=== PATIENT | male | born 1985 | race African-American/Black ===

== ENCOUNTER 2016-08-28 16:42 | Inpatient (IN) | payer MEDICARE, MEDICAID ==
[~2016-08-28] VITALS: Ht 177.8 cm; Wt 61.2 kg
[2016-08-28] MEDS ORDERED: LABETALOL HCL300 MG ORAL ×2 (17:10→20:17)
[2016-08-28] MEDS ORDERED: DILANTIN100 MG ORAL ×2 (17:10→20:30)
[2016-08-28] MEDS ORDERED: CATAPRES0.2 MG ORAL ×2 (17:10→20:18)
[2016-08-28] MEDS ORDERED: KEPPRA1000 MG ORAL (17:10)
[2016-08-28] MEDS ORDERED: DEPAKOTE250 MG PO (17:10)
[2016-08-28 17:30] VITALS: BP 217/114
[2016-08-28 18:21] LABS: MEAN CORPUSCULAR HEMOGLOBIN 32.2 PG (27.0-31.0); MEAN CORPUSCULAR HGB CONC 33.5 G/DL (32.0-36.0); MEAN CORPUSCULAR VOLUME 96 FL (80-99); MEAN PLATELET VOLUME 7.7 FL (6.5-10.1); PLATELET COUNT 71 K/UL (150-450); RED BLOOD COUNT 2.13 M/UL (4.70-6.10); RED CELL DISTRIBUTION WIDTH 16.6 % (11.6-14.8); WHITE BLOOD COUNT 2.9 K/UL (4.8-10.8)
[2016-08-28 18:25] LABS: TROPONIN I < 0.30 ng/mL (<=0.30)
[2016-08-28 18:26] LABS: ALBUMIN/GLOBULIN RATIO 1.1 (1.0-2.7); CALCIUM 8.7 mg/dL (8.6-10.2); CREATININE 4.4 mg/dL (0.7-1.2); GLOMERULAR FILTRATION RATE 19.3 mL/min (>60); TOTAL PROTEIN 5.7 g/dL (6.6-8.7)
--- NOTE | 2016-08-28 19:11 | Emergency Room Report ---
History of Present Illness General Chief Complaint: Chest Pain Source: Patient Present Illness HPI This patient presents from dialysis with chest pain and hypertension. He states he has a history of pericarditis and has a central line in the left chest that he is receiving antibiotics for. He denies recent illness. Denies fever or chills. Denies nausea or vomiting. He has no other complaints. Allergies: Coded Allergies: PHENYTOIN SODIUM (Unverified Allergy, Intermediate, Hives, 12/01/11) PHENYTOIN SODIUM EXTENDED (Unverified Allergy, Intermediate, Hives, ) KETOROLAC (Verified Allergy, Mild, SOB, 06/28/11) METOCLOPRAMIDE (Verified Allergy, Mild, RASH, 06/28/11) MORPHINE (Verified Allergy, Mild, SHOCK, 06/28/11) NITROGLYCERIN (Verified Allergy, Mild, SEIZURES, 06/28/11) PENICILLINS (Verified Allergy, Mild, SOB, 06/28/11) PHENYTOIN (Verified Allergy, Mild, RASH, 06/28/11) HEPARIN (Verified Allergy, Unknown, Shortness of Breath, 08/28/16) HYDRALAZINE (Verified Allergy, Unknown, 08/28/16) IBUPROFEN (Verified Allergy, Unknown, RASH, 06/28/11) IODINE (Verified Allergy, Unknown, SHOCK, 06/28/11) POLYSTYRENE SULFONATE (Verified Allergy, Unknown, RASH, 06/28/11) PROMETHAZINE (Verified Allergy, Unknown, RASH, 06/28/11) Uncoded Allergies: NORCO (Allergy, Severe, Anaphylaxis, 12/01/11) Patient History Past Medical History: see triage record, HTN, CAD, CVA/TIA, seizures, dialysis Past Surgical History: other - Central line Social History: Denies: alcohol use, drug use, smoking Reviewed Nursing Documentation: PMH: Agreed, PSxH: Agreed Nursing Documentation-PMH Hx Cardiac Problems: Yes - SD, pericarditis Hx Hypertension: Yes Hx Dialysis: Yes - M W F Hx Cerebrovascular Accident: Yes Hx Seizures: Yes Review of Systems All Other Systems: negative except mentioned in HPI Physical Exam Vital Signs Date Time Temp Pulse Resp B/P Pulse Ox O2 Delivery O2 Flow Rate FiO2 08/28/16 17:06 98.8 83 20 209/126 100 Room Air Sp02 EP Interpretation: reviewed, normal General Appearance: no apparent distress, alert, GCS 15, non-toxic Head: normocephalic, atraumatic Eyes: bilateral eye PERRL, bilateral eye normal inspection ENT: hearing grossly normal, normal pharynx, no angioedema, normal voice Neck: full range of motion, supple/symm/no masses Respiratory: chest non-tender, lungs clear, normal breath sounds, speaking full sentences Cardiovascular #1: regular rate, rhythm, no edema Gastrointestinal: normal bowel sounds, non tender, soft, non-distended, no guarding, no rebound Rectal: deferred Musculoskeletal: back normal, non-tender, other - At baseline, contractures. Neurologic: alert, oriented x3, responsive, motor strength/tone normal, sensory intact, speech normal Psychiatric: judgement/insight normal, memory normal, mood/affect normal, no suicidal/homicidal ideation Skin: normal color, no rash, warm/dry, well hydrated Medical Decision Making Diagnostic Impression: Primary Impression: Anemia Additional Impressions: Chest pain GI bleed Pancytopenia ER Course This patient has a history of coronary artery disease and pericarditis. He presents with chest pain and hypertension. He came from dialysis. He is also found to be significantly anemic. He did report that at the end of July he had bleeding peptic ulcers. He was seen at [facility] for this. He states that he underwent an EGD and underwent treatment for these. He denies that he has had hematemesis or dark colored stools. He states that when he was having the bleeding last month he was having hematemesis. He will be admitted for further evaluation and treatment. He was also transfused in the emergency department. This patient is critically ill. This patient required complex medical decision- making, aggressive intervention, extensive laboratory workup and monitoring. Critical care time: 40 minutes. Labs Test 08/28/16 18:00 White Blood Count 2.9 K/UL (4.8-10.8) Red Blood Count 2.13 M/UL (4.70-6.10) Hemoglobin 6.9 G/DL (14.2-18.0) Hematocrit 20.5 % (42.0-52.0) Mean Corpuscular Volume 96 FL (80-99) Mean Corpuscular Hemoglobin 32.2 PG (27.0-31.0) Mean Corpuscular Hemoglobin Concent 33.5 G/DL (32.0-36.0) Red Cell Distribution Width 16.6 % (11.6-14.8) Platelet Count 71 K/UL (150-450) Mean Platelet Volume 7.7 FL (6.5-10.1) Neutrophils (%) (Auto) % (45.0-75.0) Lymphocytes (%) (Auto) % (20.0-45.0) Monocytes (%) (Auto) % (1.0-10.0) Eosinophils (%) (Auto) % (0.0-3.0) Basophils (%) (Auto) % (0.0-2.0) Differential Total Cells Counted 100 Neutrophils % (Manual) 77 % (45-75) Lymphocytes % (Manual) 16 % (20-45) Monocytes % (Manual) 4 % (1-10) Eosinophils % (Manual) 2 % (0-3) Basophils % (Manual) 1 % (0-2) Band Neutrophils 0 % (0-8) Platelet Estimate Decreased Platelet Morphology Normal Hypochromasia 2+ Anisocytosis 1+ Microcytosis 1+ Prothrombin Time 10.9 SEC (9.30-11.50) Prothromb Time International Ratio 1.0 (0.9-1.1) Activated Partial Thromboplast Time SEC (23-33) Sodium Level 136 mEQ/L (135-145) Potassium Level 4.0 mEQ/L (3.4-4.9) Chloride Level 99 mEQ/L (98-107) Carbon Dioxide Level 24 mEQ/L (20-30) Anion Gap 13 (5-15) Blood Urea Nitrogen 37 mg/dL (7-23) Creatinine 4.4 mg/dL (0.7-1.2) Estimat Glomerular Filtration Rate 19.3 mL/min (>60) Glucose Level 80 mg/dL (74-106) Calcium Level 8.7 mg/dL (8.6-10.2) Total Bilirubin 0.3 mg/dL (0.0-1.2) Aspartate Amino Transf (AST/SGOT) 13 U/L (5-40) Alanine Aminotransferase (ALT/SGPT) 5 U/L (3-41) Alkaline Phosphatase 3504 U/L (40-129) Total Creatine Kinase 81 U/L (38-174) Creatine Kinase MB 4.0 ng/mL (< 6.7) Creatine Kinase MB Relative Index 4.9 Troponin I < 0.30 ng/mL (<=0.30) Total Protein 5.7 g/dL (6.6-8.7) Albumin 3.1 g/dL (3.5-5.2) Globulin 2.6 g/dL Albumin/Globulin Ratio 1.1 (1.0-2.7) EKG Diagnostic Results Rate: normal Rhythm: NSR ST Segments: no acute changes Other Impression Unusual p wave axis. L. atrial enlargement Rhythm Strip Diag. Results EP Interpretation: yes Rate: 90's Rhythm: NSR, no PVC's, no ectopy Chest X-Ray Diagnostic Results Chest X-Ray Diagnostic Results : Chest X-Ray Ordered: Yes # of Views/Limited/Complete: 1 View Indication: Chest Pain EP Interpretation: Yes Interpretation: no effusion, no pneumothorax, no acute cardiopulmonary disease, other - Lines in place Impression: No acute disease Interpreting ER Provider: Hilary Last Vital Signs Date Time Temp Pulse Resp B/P Pulse Ox O2 Delivery O2 Flow Rate FiO2 08/28/16 17:06 98.8 83 20 209/126 100 Room Air Disposition: ADMITTED INPATIENT Condition: Critical Referrals: UNKNOWN (PCP) BHANU VENTURA D.O. Aug 28, 2016 19:11
[2016-08-28 19:15] LABS: PROTHROMBIN TIME 10.9 SEC (9.30-11.50)
[2016-08-28] MEDS ORDERED: cloNIDine 0.2mg Tab ORAL ONE (19:15)
[2016-08-28 19:30] VITALS: BP 226/117
[2016-08-28 19:30] LABS: ANISOCYTOSIS 1+; BASOPHILS % (MANUAL) 1 % (0-2); EOSINOPHILS % (MANUAL) 2 % (0-3); HYPOCHROMASIA 2+; LYMPHOCYTES % (MANUAL) 16 % (20-45); NEUTROPHILS % (MANUAL) 77 % (45-75); TOTAL CELLS COUNTED 100
[2016-08-28 19:31] LABS: BAND NEUTROPHILS % (MANUAL) 0 % (0-8); MICROCYTES 1+; PLATELET ESTIMATE DECREASED; PLATELET MORPHOLOGY NORMAL
[2016-08-28] MEDS ORDERED: Morphine Sulfate 4mg/ml Inj IVP ONE (19:45)
[2016-08-28] MEDS ORDERED: NEPRO CARB STE237 ML PO (20:20)
[2016-08-28] MEDS ORDERED: LISINOPRIL10 MG ORAL (20:21)
[2016-08-28] MEDS ORDERED: Mylanta II UD 30ml ORAL PRN (20:30)
[2016-08-28] MEDS ORDERED: Miralax 17gm pkt ORAL PRN (20:30)
[2016-08-28] MEDS ORDERED: LORazepam Inj 2mg/ml 1ml IV PRN (20:30)
[2016-08-28] MEDS ORDERED: PROTONIX40 MG ORAL (20:30)
[2016-08-28] MEDS ORDERED: Zolpidem 5mg tab ORAL PRN (20:30)
[2016-08-28 21:08] VITALS: BP 202/128
[2016-08-28] MEDS ORDERED: DiphenhydrAMINE 50mg/ml Inj IVP ONE (21:15)
[2016-08-28 21:54] VITALS: BP 118/113
[2016-08-28 23:20] VITALS: BP 194/132
[2016-08-29] VITALS (10 sets, daily range): BP systolic 176–224; BP diastolic 98–118
[2016-08-29] MEDS ORDERED: Morphine Sulfate 2mg/ml Inj IVP ONE (04:00)
[2016-08-29] MEDS: Morphine Sulfate 4mg/ml Inj IVP PRN ×5 (09:22→21:45)
[2016-08-29] MEDS: cloNIDine 0.2mg Tab ORAL SCH (09:23)
--- NOTE | 2016-08-29 10:13 | Diagnostic Imaging Report ---
Indication: Chest pain Technique: One view of the chest Comparison: 12/01/2011 Findings: Interim placement of a jugular tunneled dialysis catheter. Stents are seen within the innominate veins and or vena cava. Interim placement left chest spinal stimulator powerpack. Bilateral axillary surgical clips are demonstrated. Right upper quadrant surgical clips are demonstrated. The heart is mildly enlarged. Lungs and pleural spaces are clear. Previously demonstrated PICC is no longer evident Impression: Cardiomegaly No definite acute process Postsurgical changes, as described
[2016-08-29 10:14] LABS: MEAN CORPUSCULAR HEMOGLOBIN 29.5 PG (27.0-31.0); MEAN CORPUSCULAR HGB CONC 31.7 G/DL (32.0-36.0); MEAN CORPUSCULAR VOLUME 93 FL (80-99); MEAN PLATELET VOLUME 7.5 FL (6.5-10.1); PLATELET COUNT 95 K/UL (150-450); RED BLOOD COUNT 3.21 M/UL (4.70-6.10); RED CELL DISTRIBUTION WIDTH 16.5 % (11.6-14.8); WHITE BLOOD COUNT 3.7 K/UL (4.8-10.8)
[2016-08-29 10:23] LABS: ALBUMIN/GLOBULIN RATIO 1.5 (1.0-2.7); CALCIUM 8.7 mg/dL (8.6-10.2); CREATININE 5.3 mg/dL (0.7-1.2); GLOMERULAR FILTRATION RATE 15.5 mL/min (>60); TOTAL PROTEIN 5.1 g/dL (6.6-8.7)
--- NOTE | 2016-08-29 10:32 | History and Physical ---
History of Present Illness General Date patient seen: Aug 29, 2016 Reason for Hospitalization: Chest Pain Present Illness HPI 30 year old make with hx of ESRF, on HD, CVA, htn, pericarditis, presented from dialysis with chest pain and hypertension. He states he has a history of pericarditis and has a central line in the left chest that he is receiving antibiotics for. He denies recent illness. Denies fever or chills. Denies nausea or vomiting. He has no other complaints. Pt was found to be anemic and pancytopenic and is admitted to [facility] for further management. Allergies: Coded Allergies: PHENYTOIN SODIUM (Unverified Allergy, Intermediate, Hives, 12/01/11) PHENYTOIN SODIUM EXTENDED (Unverified Allergy, Intermediate, Hives, ) KETOROLAC (Verified Allergy, Mild, SOB, 06/28/11) METOCLOPRAMIDE (Verified Allergy, Mild, RASH, 06/28/11) NITROGLYCERIN (Verified Allergy, Mild, SEIZURES, 06/28/11) PENICILLINS (Verified Allergy, Mild, SOB, 06/28/11) PHENYTOIN (Verified Allergy, Mild, RASH, 06/28/11) HEPARIN (Verified Allergy, Unknown, Shortness of Breath, 08/28/16) HYDRALAZINE (Verified Allergy, Unknown, 08/28/16) IBUPROFEN (Verified Allergy, Unknown, RASH, 06/28/11) IODINE (Verified Allergy, Unknown, SHOCK, 06/28/11) POLYSTYRENE SULFONATE (Verified Allergy, Unknown, RASH, 06/28/11) PROMETHAZINE (Verified Allergy, Unknown, RASH, 06/28/11) Uncoded Allergies: NORCO (Allergy, Severe, Anaphylaxis, 12/01/11) Medication History Scheduled Clonidine Hcl* (Catapres*), 0.2 MG ORAL DAILY, (Reported) Divalproex Sodium* (Depakote*), 250 MG PO Q12HR, (Reported) Labetalol Hcl* (Normodyne*), 300 MG ORAL DAILY, (Reported) Levetiracetam (Keppra), 1,000 MG ORAL BID, (Reported) Lisinopril* (Lisinopril*), 10 MG ORAL DAILY, (Reported) Nut.tx.impaired Renal Fxn,Soy (Nepro Carb Steady), PO QID, (Reported) Phenytoin Sodium Extended* (Dilantin*), 300 MG ORAL DAILY, (Reported) Miscellaneous Medications Pantoprazole* (Protonix*), 40 MG ORAL, (Reported) Patient History Healthcare decision maker Resuscitation status Full Code Advanced Directive on File Past Medical/Surgical History Past Medical/Surgical History: (1) ESRF (end stage renal failure) (2) History of CVA (cerebrovascular accident) (3) Left hemiplegia Review of Systems All Other Systems: negative except mentioned in HPI Physical Exam General Appearance: cachetic Lines, tubes and drains: peripheral HEENT: normocephalic, atraumatic Neck: non-tender, normal alignment Respiratory/Chest: chest wall non-tender, lungs clear Breasts: no masses Cardiovascular/Chest: normal peripheral pulses Abdomen: normal bowel sounds, soft Genitourinary/Rectal: normal genital exam, normal rectal exam Skin Exam: normal pigmentation Neurologic: info analyst II-XII grossly normal, other - left sided arm contracuture Lymphatic: anterior cervical Last 24 Hour Vital Signs Date Time Temp Pulse Resp B/P Pulse Ox O2 Delivery O2 Flow Rate FiO2 08/29/16 09:23 89 178/99 08/29/16 09:23 178/99 08/29/16 08:00 89 08/29/16 05:45 98.8 102 17 188/115 100 Room Air 99 08/29/16 04:00 98.2 96 17 176/103 100 Room Air 96 08/29/16 04:00 100 08/29/16 03:50 180/110 08/29/16 02:30 98.2 99 17 180/110 100 Room Air 99 08/29/16 02:25 98.4 80 16 182/103 99 Room Air 80 08/29/16 02:00 98.9 84 16 196/118 99 Room Air 84 08/29/16 00:00 98.4 82 16 182/108 99 Room Air 82 08/29/16 00:00 90 08/28/16 23:20 98.2 88 16 194/132 99 Room Air 88 08/28/16 22:50 98.9 87 16 08/28/16 22:40 98.7 89 18 08/28/16 22:10 93 18 201/101 100 Room Air 08/28/16 21:54 91 13 118/113 100 Room Air 08/28/16 21:15 202/128 08/28/16 21:08 97.8 85 17 202/128 100 Room Air 08/28/16 19:30 98.2 89 18 226/117 100 Room Air 08/28/16 19:15 227/114 08/28/16 19:15 101 227/114 08/28/16 17:30 98.2 86 18 217/114 100 Room Air 08/28/16 17:30 86 18 Room Air 08/28/16 17:06 98.8 83 20 209/126 100 Room Air Intake and Output 08/28/16 08/29/16 19:00 07:00 Intake Total 0 ml 720 ml Balance 0 ml 720 ml Intake Oral 0 ml 720 ml Laboratory Tests Test 08/28/16 18:00 08/29/16 09:30 White Blood Count 2.9 K/UL (4.8-10.8) L 3.7 K/UL (4.8-10.8) L Red Blood Count 2.13 M/UL (4.70-6.10) L 3.21 M/UL (4.70-6.10) L Hemoglobin 6.9 G/DL (14.2-18.0) *L 9.5 G/DL (14.2-18.0) #L Hematocrit 20.5 % (42.0-52.0) L 29.8 % (42.0-52.0) #L Mean Corpuscular Volume 96 FL (80-99) 93 FL (80-99) Mean Corpuscular Hemoglobin 32.2 PG (27.0-31.0) H 29.5 PG (27.0-31.0) Mean Corpuscular Hemoglobin Concent 33.5 G/DL (32.0-36.0) 31.7 G/DL (32.0-36.0) L Red Cell Distribution Width 16.6 % (11.6-14.8) H 16.5 % (11.6-14.8) H Platelet Count 71 K/UL (150-450) L 95 K/UL (150-450) L Mean Platelet Volume 7.7 FL (6.5-10.1) 7.5 FL (6.5-10.1) Neutrophils (%) (Auto) % (45.0-75.0) % (45.0-75.0) Lymphocytes (%) (Auto) % (20.0-45.0) % (20.0-45.0) Monocytes (%) (Auto) % (1.0-10.0) % (1.0-10.0) Eosinophils (%) (Auto) % (0.0-3.0) % (0.0-3.0) Basophils (%) (Auto) % (0.0-2.0) % (0.0-2.0) Differential Total Cells Counted 100 Neutrophils % (Manual) 77 % (45-75) H Pending Lymphocytes % (Manual) 16 % (20-45) L Pending Monocytes % (Manual) 4 % (1-10) Eosinophils % (Manual) 2 % (0-3) Basophils % (Manual) 1 % (0-2) Band Neutrophils 0 % (0-8) Platelet Estimate Decreased L Pending Platelet Morphology Normal Pending Hypochromasia 2+ Anisocytosis 1+ Microcytosis 1+ Prothrombin Time 10.9 SEC (9.30-11.50) Prothromb Time International Ratio 1.0 (0.9-1.1) Activated Partial Thromboplast Time SEC (23-33) Sodium Level 136 mEQ/L (135-145) Pending Potassium Level 4.0 mEQ/L (3.4-4.9) Pending Chloride Level 99 mEQ/L (98-107) Pending Carbon Dioxide Level 24 mEQ/L (20-30) Pending Anion Gap 13 (5-15) Blood Urea Nitrogen 37 mg/dL (7-23) H Pending Creatinine 4.4 mg/dL (0.7-1.2) H Pending Estimat Glomerular Filtration Rate 19.3 mL/min (>60) Pending Glucose Level 80 mg/dL (74-106) Pending Calcium Level 8.7 mg/dL (8.6-10.2) Pending Total Bilirubin 0.3 mg/dL (0.0-1.2) Pending Aspartate Amino Transf (AST/SGOT) 13 U/L (5-40) Pending Alanine Aminotransferase (ALT/SGPT) 5 U/L (3-41) Pending Alkaline Phosphatase 3504 U/L (40-129) H Pending Total Creatine Kinase 81 U/L (38-174) Creatine Kinase MB 4.0 ng/mL (< 6.7) Creatine Kinase MB Relative Index 4.9 Troponin I < 0.30 ng/mL (<=0.30) Total Protein 5.7 g/dL (6.6-8.7) L Pending Albumin 3.1 g/dL (3.5-5.2) L Pending Globulin 2.6 g/dL Pending Albumin/Globulin Ratio 1.1 (1.0-2.7) Erythrocyte Sedimentation Rate Pending Reticulocyte Count Pending Iron Level Pending Unsaturated Iron Binding Pending Lactate Dehydrogenase Pending Carcinoembryonic Antigen Pending Vitamin B12 Level Pending Folate Pending Thyroid Stimulating Hormone (TSH) Pending Height (Feet): 5 Height (Inches): 10.00 Weight (Pounds): 135 Medications Current Medications Medications (Trade) Dose Ordered Sig/Anant Route PRN Reason Start Time Stop Time Status Last Admin Dose Admin Acetaminophen (Tylenol) 650 mg Q4H PRN ORAL fever 08/28/16 20:30 09/27/16 20:29 Al Hydroxide/Mg Hydroxide (Mylanta II) 30 ml Q6H PRN ORAL dyspepsia 08/28/16 20:30 09/27/16 20:29 Ceftriaxone Sodium/Dextrose (Rocephin/D5W) 55 ml @ 110 mls/hr Q24H IVPB 08/29/16 10:00 09/05/16 09:59 UNV Clonidine HCl (Catapres) 0.1 mg Q4H PRN ORAL For SBP> 170 08/29/16 03:15 09/28/16 03:14 08/29/16 03:50 Clonidine HCl (Catapres) 0.2 mg DAILY ORAL 08/29/16 09:00 09/28/16 08:59 08/29/16 09:23 Dextrose (Dextrose 50%) STAT PRN IV Hypoglycemia 08/28/16 20:30 09/27/16 20:29 Diphenhydramine HCl (Benadryl) 25 mg Q6H PRN IVP Itching 08/29/16 10:00 09/28/16 09:59 UNV Divalproex Sodium (Depakote) 250 mg Q12HR ORAL 08/28/16 21:00 09/27/16 20:59 08/29/16 09:24 Labetalol HCl (Normodyne) 300 mg DAILY ORAL 08/29/16 09:00 09/28/16 08:59 08/29/16 09:23 Levetiracetam (Keppra) 1,000 mg Q12HR ORAL 08/28/16 21:00 09/27/16 20:59 08/29/16 09:23 Lorazepam (Ativan 2mg/ml 1ml) 0.5 mg Q4H PRN IV For Anxiety 08/28/16 20:30 09/04/16 20:29 08/29/16 01:00 Morphine Sulfate (Morphine Sulfate) 4 mg Q3H PRN IVP For Pain 08/29/16 09:00 09/05/16 08:59 08/29/16 09:22 Ondansetron HCl (Zofran) 4 mg Q6H PRN IVP Nausea & Vomiting 08/28/16 20:30 09/27/16 20:29 08/29/16 03:50 Polyethylene Glycol (Miralax) 17 gm HSPRN PRN ORAL Constipation 08/28/16 20:30 09/27/16 20:29 Vancomycin HCl 1 ea 1 ea DAILY PRN MISC Per rx protocol 08/29/16 10:00 09/28/16 09:59 UNV Zolpidem Tartrate (Ambien) 5 mg HSPRN PRN ORAL Insomnia 08/28/16 20:30 09/27/16 20:29 Assessment/Plan Problem List: (1) Pericarditis ICD Codes: I31.9 - Disease of pericardium, unspecified SNOMED: 1561570 (2) Chest pain ICD Codes: R07.9 - Chest pain, unspecified SNOMED: 16833159 (3) Anemia ICD Codes: D64.9 - Anemia, unspecified SNOMED: 100628030 (4) Pancytopenia ICD Codes: D61.818 - Other pancytopenia SNOMED: 914411030 (5) ESRF (end stage renal failure) ICD Codes: N18.6 - End stage renal disease SNOMED: 77077885 (6) Left hemiplegia ICD Codes: G81.94 - Hemiplegia, unspecified affecting left nondominant side SNOMED: 787330118 (7) History of CVA (cerebrovascular accident) ICD Codes: Z86.73 - Personal history of transient ischemic attack (TIA), and cerebral infarction without residual deficits SNOMED: 393817290 Assessment/Plan prbc prn resume abx for pericarditis nephrology for HD pain management dvt prophylaxis rule out GI bleeding stool of OB BETHEL PACK Aug 29, 2016 10:32
[2016-08-29 10:34] LABS: THYROID STIMULATING HORMONE 1.41 uIU/mL (0.300-4.500)
[2016-08-29] MEDS: DiphenhydrAMINE 50mg/ml Inj IVP PRN ×2 (10:59→18:31)
[2016-08-29] MEDS ORDERED: Vancomycin 1250mg/D5W 250ml IVPB ONE (11:30)
[2016-08-29 11:56] LABS: ANISOCYTOSIS 1+; BAND NEUTROPHILS % (MANUAL) 0 % (0-8); BASOPHILS % (MANUAL) 1 % (0-2); EOSINOPHILS % (MANUAL) 0 % (0-3); HYPOCHROMASIA 1+; LYMPHOCYTES % (MANUAL) 22 % (20-45); NEUTROPHILS % (MANUAL) 67 % (45-75); PLATELET ESTIMATE DECREASED; PLATELET MORPHOLOGY NORMAL; TOTAL CELLS COUNTED 100
[2016-08-29] MEDS ORDERED: Heparin Sod 1000 units/ml 10ml IV PRN (12:16)
[2016-08-29] MEDS: cefTRIAXone 1 GM in D5W 55 ML IVPB SCH (12:45)
--- NOTE | 2016-08-29 13:48 | Diagnostic Imaging Report ---
APPROVED REPORT CPT Code: 93082 Present Symptoms Comments: R/O DVT RIGHT LEG: Venous imaging reveals a patent deep venous system. There is no evidence of thrombus within the femoral, popliteal or tibial segments. The greater saphenous vein is also within normal limits. Doppler indicates normal spontaneous flow within these segments. LEFT LEG: Venous imaging reveals recanalized chronic thrombus in the common femoral vein. Imaging also reveals patency of the superficial femoral, popliteal, and calf veins. The greater saphenous vein is also within normal limits. Doppler indicates normal spontaneous flow within these segments. There is no evidence of acute deep vein thrombosis.
--- NOTE | 2016-08-29 14:16 | Consultation ---
DATE OF CONSULTATION: NEPHROLOGY CONSULTATION CONSULTING PHYSICIAN: Nitza Gaines M.D. REASON FOR CONSULTATION: This is one of my dialysis patients. HISTORY OF PRESENT ILLNESS: This is an unfortunate 30-year-old male, who spends most of his time as an inpatient. The patient gets admitted to most of the hospitals in the [facility]. His last admission was to [facility] from where he was discharged about a week ago. Ever since then, the patient has very sketchy dialysis treatment. The patient indicates every dialysis on that he wants to go back to the hospital for different reasons. Yesterday, the patient found his way to this hospital ER. He was admitted under Dr. Hayward, who was kind enough to call me for a Nephrology consultation. PAST MEDICAL HISTORY: 1. End-stage renal failure, on dialysis. 2. Advanced myopathy with skeletal muscular deformities. 3. Severe anemia of chronic kidney disease. 4. Uremia due to noncompliance. 5. Total noncompliance with dialysis treatment, medications and diet. 6. Hypertensive cardiovascular disease. 7. Seizure disorder. 8. Severe secondary hyperparathyroidism. MEDICATIONS: Dilantin, clonidine, Depakote, labetalol, Keppra, lisinopril. Although it is mentioned that the patient is allergic to Dilantin. The patient is not and is on Dilantin treatment Protonix. ALLERGIES: The patient has a long list of allergies, most of those are side effects and no true allergies. Here the following day, list acetaminophen, heparin (the patient is on heparin during dialysis without untoward side effects, so it should be scratched out of the list) hydralazine, hydrocodone. (The patient is getting [place] without any untoward side effects.) ibuprofen, not true allergy. The patient has side effects from ibuprofen, iodine, and ketorolac again this is an nonsteroidal anti-inflammatory agent which the patient is not supposed to get, but is no true allergy to metoclopramide, type 2 blistering, penicillins, Dilantin should be scratched out since the patient is on Dilantin. FAMILY HISTORY: Unremarkable. SOCIAL HISTORY: The patient lives at home with his mother. HABITS: He is nonsmoker and nondrinker. There is no history of illicit drug abuse. REVIEW OF SYSTEMS: HEENT: Hearing. Normal eye sites diminished. The patient has exophthalmos. Endocrine.: Due to noncompliance and uremia. Respiratory: Significant orthopnea and paroxysmal nocturnal dyspnea. Cardiovascular: The patient has occasional chest pain, but has been extensively worked up for ischemic heart disease and has none. Gastrointestinal: The patient has multiple upper and lower endoscopies, the last one of them was done a week ago at [facility] demonstrating gastritis. He has recurrent upper and lower gastrointestinal bleed. Neurological: Significant for advanced muscle atrophy and seizure disorder related to the patient's uremia. ATTENDING PHYSICIAN: GENERAL: This is a young chronically ill-appearing underdeveloped and deformed male, who is in no acute distress. VITAL SIGNS: Blood pressure was 178/99, pulse 89 and regular, respirations 20, and temperature 98.8. HEENT: The head is normocephalic, except muscle wasting and mild to moderate exophthalmos. NECK: Supple. Trachea midline. There is no lymphadenopathy or thyromegaly. LUNGS: Clear to auscultation percussion bilaterally. Heart, regular rate and rhythm. He has a grade 2 systolic ejection murmur. ABDOMEN: Soft and nontender. Bowel sounds are active. EXTREMITIES: Significant for advanced muscle wasting in all extremities. He has contracture of his left hand and he has right upper arm AV fistula. NEUROLOGICAL: He is alert and oriented x4. Cranial nerves II through XII intact. The patient is not able to ambulate easily. He needs assistance. Otherwise, there were no gross focal findings. LABORATORY AND ANCILLARY DATA: His hematocrit is 20.5 and today 29.8. Chemistry, sodium 136, potassium 5, BUN 54, creatinine 5.3, CO2 26, albumin 3.1, and alkaline phosphatase 2907. ASSESSMENT: Severe anemia multifactorial . End-stage renal failure, on dialysis. 2. Advanced myopathy with skeletal muscular deformities. 3. Severe anemia of chronic kidney disease. 4. Uremia due to noncompliance. 5. Total noncompliance with dialysis treatment, medications and diet. 6. Hypertensive cardiovascular disease. 7. Seizure disorder. 8. Severe secondary hyperparathyroidism. PLAN ON DISCHARGE: 1. The patient was transfused. 2. Hemodialysis pending. 3. Discharge planning, the patient lives at home. Nitza Gaines M.D. DR: MELLY JOB#: [id number] CC: LINA
--- NOTE | 2016-08-29 16:44 | GI Initial Consult Note ---
History of Present Illness General Date patient seen: Aug 29, 2016 Time patient seen: 15:00 Reason for Hospitalization: Chest Pain Referring physician: BETHEL PACK Reason for Consultation: ANEMIA Present Illness HPI This patient presents from dialysis with chest pain and hypertension. He states he has a history of pericarditis and has a central line in the left chest that he is receiving antibiotics for. He denies recent illness. Denies fever or chills. Denies nausea or vomiting. He has no other complaints. GI Consult. HPI as noted above. GI consulted for anemia. Pt seen on floor, awake A&Ox4 NAD with no active s/sx of N/V/D. No general GI complaint at this time. States he has a history of bleeding PUD. Last endoscopy was over 2+ years ago, however does not feel like his symptoms are GI related at this time. Presents today with pancytopenia, elevated alkaline phosphatase and hypoalbuminemia. Home Meds Reported Medications Pantoprazole* (PROTONIX*) 40 Mg Tablet.dr, 40 MG ORAL 08/28/16 Phenytoin Sodium Extended* (DILANTIN*) 100 Mg Capsule, 300 MG ORAL DAILY 08/28/16 Lisinopril* (LISINOPRIL*) 10 Mg Tablet, 10 MG ORAL DAILY 08/28/16 Nut.tx.impaired Renal Fxn,Soy (NEPRO CARB STEADY) 237 Ml Liquid, PO QID 08/28/16 Clonidine Hcl* (CATAPRES*) 0.2 Mg Tablet, 0.2 MG ORAL DAILY 08/28/16 Labetalol Hcl* (NORMODYNE*) 300 Mg Tablet, 300 MG ORAL DAILY 08/28/16 Divalproex Sodium* (DEPAKOTE*) 250 Mg Tablet.dr, 250 MG PO Q12HR, TAB 08/28/16 Levetiracetam (KEPPRA) 1,000 Mg Tablet, 1000 MG ORAL BID, #30 TAB 0 Refills 08/28/16 Med list reviewed/reconciled: Yes Allergies: Coded Allergies: PHENYTOIN SODIUM (Unverified Allergy, Intermediate, Hives, 12/01/11) PHENYTOIN SODIUM EXTENDED (Unverified Allergy, Intermediate, Hives, ) KETOROLAC (Verified Allergy, Mild, SOB, 06/28/11) METOCLOPRAMIDE (Verified Allergy, Mild, RASH, 06/28/11) NITROGLYCERIN (Verified Allergy, Mild, SEIZURES, 06/28/11) PENICILLINS (Verified Allergy, Mild, SOB, 06/28/11) PHENYTOIN (Verified Allergy, Mild, RASH, 06/28/11) ACETAMINOPHEN (Verified Allergy, Unknown, Anaphylaxis, 08/29/16) copied from uncoded section HEPARIN (Verified Allergy, Unknown, Shortness of Breath, 08/28/16) HYDRALAZINE (Verified Allergy, Unknown, 08/28/16) HYDROCODONE (Verified Allergy, Unknown, Anaphylaxis, 08/29/16) copied from uncoded section IBUPROFEN (Verified Allergy, Unknown, RASH, 06/28/11) IODINE (Verified Allergy, Unknown, SHOCK, 06/28/11) POLYSTYRENE SULFONATE (Verified Allergy, Unknown, RASH, 06/28/11) PROMETHAZINE (Verified Allergy, Unknown, RASH, 06/28/11) Patient History History Provided By: Patient, Medical Record PMH Narrative Past Medical History: see triage record, HTN, CAD, CVA/TIA, seizures, dialysis Past Surgical History: other - Central line Social History: Denies: alcohol use, drug use, smoking Reviewed Nursing Documentation: PMH: Agreed, PSxH: Agreed Nursing Documentation-PMH Hx Cardiac Problems: Yes - [place], pericarditis Hx Hypertension: Yes Hx Dialysis: Yes - M W F Hx Cerebrovascular Accident: Yes Hx Seizures: Yes Social History: Denies: alcohol use, drug use, other, smoking Review of Systems All Other Systems: negative except mentioned in HPI Physical Exam Vital Signs Date Time Temp Pulse Resp B/P Pulse Ox O2 Delivery O2 Flow Rate FiO2 08/28/16 17:06 98.8 83 20 209/126 100 Room Air Sp02 EP Interpretation: reviewed Labs Laboratory Tests Test 08/28/16 18:00 08/29/16 09:30 White Blood Count 2.9 K/UL (4.8-10.8) L 3.7 K/UL (4.8-10.8) L Red Blood Count 2.13 M/UL (4.70-6.10) L 3.21 M/UL (4.70-6.10) L Hemoglobin 6.9 G/DL (14.2-18.0) *L 9.5 G/DL (14.2-18.0) #L Hematocrit 20.5 % (42.0-52.0) L 29.8 % (42.0-52.0) #L Mean Corpuscular Volume 96 FL (80-99) 93 FL (80-99) Mean Corpuscular Hemoglobin 32.2 PG (27.0-31.0) H 29.5 PG (27.0-31.0) Mean Corpuscular Hemoglobin Concent 33.5 G/DL (32.0-36.0) 31.7 G/DL (32.0-36.0) L Red Cell Distribution Width 16.6 % (11.6-14.8) H 16.5 % (11.6-14.8) H Platelet Count 71 K/UL (150-450) L 95 K/UL (150-450) L Mean Platelet Volume 7.7 FL (6.5-10.1) 7.5 FL (6.5-10.1) Neutrophils (%) (Auto) % (45.0-75.0) % (45.0-75.0) Lymphocytes (%) (Auto) % (20.0-45.0) % (20.0-45.0) Monocytes (%) (Auto) % (1.0-10.0) % (1.0-10.0) Eosinophils (%) (Auto) % (0.0-3.0) % (0.0-3.0) Basophils (%) (Auto) % (0.0-2.0) % (0.0-2.0) Differential Total Cells Counted 100 100 Neutrophils % (Manual) 77 % (45-75) H 67 % (45-75) Lymphocytes % (Manual) 16 % (20-45) L 22 % (20-45) Monocytes % (Manual) 4 % (1-10) 10 % (1-10) Eosinophils % (Manual) 2 % (0-3) 0 % (0-3) Basophils % (Manual) 1 % (0-2) 1 % (0-2) Band Neutrophils 0 % (0-8) 0 % (0-8) Platelet Estimate Decreased L Decreased L Platelet Morphology Normal Normal Hypochromasia 2+ 1+ Anisocytosis 1+ 1+ Microcytosis 1+ Prothrombin Time 10.9 SEC (9.30-11.50) Prothromb Time International Ratio 1.0 (0.9-1.1) Activated Partial Thromboplast Time SEC (23-33) Sodium Level 136 mEQ/L (135-145) 136 mEQ/L (135-145) Potassium Level 4.0 mEQ/L (3.4-4.9) 5.0 mEQ/L (3.4-4.9) H Chloride Level 99 mEQ/L (98-107) 97 mEQ/L (98-107) L Carbon Dioxide Level 24 mEQ/L (20-30) 26 mEQ/L (20-30) Anion Gap 13 (5-15) 13 (5-15) Blood Urea Nitrogen 37 mg/dL (7-23) H 54 mg/dL (7-23) H Creatinine 4.4 mg/dL (0.7-1.2) H 5.3 mg/dL (0.7-1.2) H Estimat Glomerular Filtration Rate 19.3 mL/min (>60) 15.5 mL/min (>60) Glucose Level 80 mg/dL (74-106) 86 mg/dL (74-106) Calcium Level 8.7 mg/dL (8.6-10.2) 8.7 mg/dL (8.6-10.2) Total Bilirubin 0.3 mg/dL (0.0-1.2) 0.4 mg/dL (0.0-1.2) Aspartate Amino Transf (AST/SGOT) 13 U/L (5-40) 13 U/L (5-40) Alanine Aminotransferase (ALT/SGPT) 5 U/L (3-41) 5 U/L (3-41) Alkaline Phosphatase 3504 U/L (40-129) H 2907 U/L (40-129) H Total Creatine Kinase 81 U/L (38-174) Creatine Kinase MB 4.0 ng/mL (< 6.7) Creatine Kinase MB Relative Index 4.9 Troponin I < 0.30 ng/mL (<=0.30) Total Protein 5.7 g/dL (6.6-8.7) L 5.1 g/dL (6.6-8.7) L Albumin 3.1 g/dL (3.5-5.2) L 3.1 g/dL (3.5-5.2) L Globulin 2.6 g/dL 2.0 g/dL Albumin/Globulin Ratio 1.1 (1.0-2.7) 1.5 (1.0-2.7) Erythrocyte Sedimentation Rate 27 MM/HR (0-15) H Reticulocyte Count 2.0 % (0.0-2.0) Iron Level 149 ug/dL (59-158) Total Iron Binding Capacity ug/dL (250-400) Percent Iron Saturation % (15-50) Unsaturated Iron Binding ug/dL (112-346) Lactate Dehydrogenase 217 U/L (135-230) Carcinoembryonic Antigen 8.6 ng/mL H Vitamin B12 Level 505 pg/mL (211-946) Folate Pending Thyroid Stimulating Hormone (TSH) 1.410 uIU/mL (0.300-4.500) General Appearance: well appearing, no apparent distress, alert, thin Head: normocephalic EENT: PERRL/EOMI, normal ENT inspection Neck: normal inspection, full range of motion Respiratory: normal breath sounds, no respiratory distress Cardiovascular: normal rate Gastrointestinal: normal inspection, non tender, soft, normal bowel sounds Rectal: deferred Genitourinary: no CVA tenderness Musculoskeletal: back normal Neurologic: normal inspection, alert, oriented x3, responsive Psychiatric: normal inspection, judgement/insight normal, memory normal Skin: normal inspection, normal color, no rash, warm/dry Lymphatic: normal inspection, no adenopathy Current Medications Current Medications Medications (Trade) Dose Ordered Sig/Anant Route PRN Reason Start Time Stop Time Status Last Admin Dose Admin Acetaminophen (Tylenol) 650 mg Q4H PRN ORAL fever 08/28/16 20:30 09/27/16 20:29 Al Hydroxide/Mg Hydroxide (Mylanta II) 30 ml Q6H PRN ORAL dyspepsia 08/28/16 20:30 09/27/16 20:29 Ceftriaxone Sodium/Dextrose (Rocephin/D5W) 55 ml @ 110 mls/hr Q24H IVPB 08/29/16 13:00 09/05/16 12:59 08/29/16 12:45 Clonidine HCl (Catapres) 0.1 mg Q4H PRN ORAL For SBP> 170 08/29/16 03:15 09/28/16 03:14 08/29/16 03:50 Clonidine HCl (Catapres) 0.2 mg DAILY ORAL 08/29/16 09:00 09/28/16 08:59 08/29/16 09:23 Dextrose (Dextrose 50%) STAT PRN IV Hypoglycemia 08/28/16 20:30 09/27/16 20:29 Diphenhydramine HCl (Benadryl) 25 mg Q6H PRN IVP Itching 08/29/16 10:45 09/28/16 10:44 08/29/16 10:59 Divalproex Sodium (Depakote) 250 mg Q12HR ORAL 08/28/16 21:00 09/27/16 20:59 08/29/16 09:24 Epoetin Rajinder (Procrit (for ESRD on dialysis)) 10,000 units SUN-SUN-SUN SUBQ 08/30/16 21:00 09/29/16 20:59 Heparin Sodium (Porcine) (Heparin Sod 1000 units/ml 10ml) 2,000 unit ONCE PRN IV FOR HD 08/29/16 12:16 08/29/16 23:59 Labetalol HCl 300 mg 300 mg Q12HR ORAL 08/29/16 21:00 09/28/16 20:59 Levetiracetam (Keppra) 1,000 mg Q12HR ORAL 08/28/16 21:00 09/27/16 20:59 08/29/16 09:23 Lorazepam (Ativan 2mg/ml 1ml) 0.5 mg Q4H PRN IV For Anxiety 08/28/16 20:30 09/04/16 20:29 08/29/16 01:00 Morphine Sulfate (Morphine Sulfate) 4 mg Q3H PRN IVP For Pain 08/29/16 09:00 09/05/16 08:59 08/29/16 15:43 Ondansetron HCl (Zofran) 4 mg Q6H PRN IVP Nausea & Vomiting 08/28/16 20:30 09/27/16 20:29 08/29/16 03:50 Polyethylene Glycol (Miralax) 17 gm HSPRN PRN ORAL Constipation 08/28/16 20:30 09/27/16 20:29 Sodium Chloride (Sodium Chloride 1000ml bag) 1,000 ml @ 500 mls/hr Q2H PRN IVLG sbp<90 during hd 08/29/16 12:18 08/29/16 23:59 Vancomycin HCl 1 ea 1 ea DAILY PRN MISC Per rx protocol 08/29/16 10:45 09/28/16 10:44 Zolpidem Tartrate (Ambien) 5 mg HSPRN PRN ORAL Insomnia 08/28/16 20:30 09/27/16 20:29 GI: Plan Problems: (1) Alkaline phosphatase elevation (2) Severe malnutrition (3) Chest pain (4) Pancytopenia (5) GI bleed Plan elevated CEA 8.6 anemia work on patient OB stool r/o GI bleed >> will consider GI procedures prn transfusion ppi f/u abdominal U/S regular diet HIV check fu labs recommend hematology consult Discussed with Dr. Sandoval. Thank you for referring this patient, we will follow. Ashleigh Marie N.P. Aug 29, 2016 16:44
--- NOTE | 2016-08-29 18:15 | Cardiology Report ---
APPROVED REPORT EKG Measurement Heart [id number] Normal sinus rhythm Possible Left atrial enlargement Prolonged QT Abnormal ECG
[2016-08-30] VITALS (9 sets, daily range): BP systolic 147–208; BP diastolic 98–122
[2016-08-30] MEDS: Morphine Sulfate 4mg/ml Inj IVP PRN ×7 (01:07→20:40)
[2016-08-30] MEDS: DiphenhydrAMINE 50mg/ml Inj IVP PRN ×4 (01:07→20:39)
[2016-08-30 05:53] LABS: MEAN CORPUSCULAR HEMOGLOBIN 31.1 PG (27.0-31.0); MEAN CORPUSCULAR VOLUME 94 FL (80-99); MEAN PLATELET VOLUME 7.1 FL (6.5-10.1); PLATELET COUNT 89 K/UL (150-450); RED BLOOD COUNT 2.91 M/UL (4.70-6.10); RED CELL DISTRIBUTION WIDTH 16.5 % (11.6-14.8)
[2016-08-30 05:57] LABS: ALBUMIN/GLOBULIN RATIO 1.1 (1.0-2.7); CALCIUM 8.6 mg/dL (8.6-10.2); CREATININE 4.6 mg/dL (0.7-1.2); GLOMERULAR FILTRATION RATE 18.3 mL/min (>60); POTASSIUM 4.8 mEQ/L (3.4-4.9); TOTAL PROTEIN 5.6 g/dL (6.6-8.7)
--- NOTE | 2016-08-30 08:16 | Consultation ---
DATE OF CONSULTATION: 08/29/2016 NOTE: POOR AUDIO QUALITY HEMATOLOGY/ONCOLOGY CONSULTATION CONSULTING PHYSICIAN: Chavo Alfaro M.D. REQUESTING PHYSICIAN: Kaylah Hayward M.D. REASON FOR CONSULTATION: Evaluation of anemia and leukopenia. IDENTIFICATION DATA: Dear Dr. Kaylah Hayward, Thank you for this consultation. The patient is a pleasant 30-year-old male with past medical history of end-stage renal disease, history of hemodialysis, , hypertension, pericarditis, has been admitted multiple times before 00:55 . Denies any nausea, vomiting, or diarrhea. The patient is found to be anemic and history of pancytopenia in the past, had never had a bone marrow biopsy completed here, 01:46 hematology service consulted. Past Medical History: End-stage renal disease, hemodialysis, advanced myopathy, musculoskeletal deformity, 01:57 dialysis, seizure disorder, secondary hyperparathyroidism. PAST SURGICAL HISTORY: As noted above. MEDICATIONS: Clonidine, Dilantin, albuterol, Keppra, and lisinopril. ALLERGIES: Allergic to Dilantin amongst others, many other allergies. Please refer to Dr. Nitza Gaines's notes. FAMILY HISTORY: Noncontributory. SOCIAL HISTORY: He lives at home with his mother. No alcohol, tobacco, or illicit drug use. REVIEW OF SYSTEMS: Constitutional: No fevers, chills, or night sweats. Skin: No rashes, bumps, or itching. HEENT: No hearing changes. Pulmonary: The patient does have severe shortness of breath and paroxysmal nocturnal dyspnea. Cardiovascular: No chest pain, tightness, or palpitations. Gastrointestinal: No nausea, vomiting, or diarrhea. Genitourinary: No dysuria, frequency, or urgency. Musculoskeletal: No joint swelling, muscle pain, or trauma. PHYSICAL EXAMINATION: GENERAL: The patient is in no distress. Vital Signs: Temperature is 03:15 degrees Fahrenheit, pulse of 85, respiratory rate 12, blood pressure 179/98, and pulse oximetry 97% on room air. PULMONARY: Decreased breath sounds. CARDIOVASCULAR: Regular rate. No S3 or S4. ABDOMEN: Soft, nontender, and nondistended. EXTREMITIES: There is 1+ edema. LABORATORY DATA: WBC , hemoglobin 10.5, hematocrit 30, and platelet count 95,000. Imaging: 03:34 lower extremity is completed. No evidence of DVT and 03:40 thrombosis of the left leg. ASSESSMENT AND PLAN: 1. Pancytopenia especially secondary to underlying inflammatory process. At this time hold off on bone marrow biopsy, 04:11 end-stage renal disease, on hemodialysis 04:25 2. History of CVA. He had been on aspirin before. 3. End-stage renal disease. 4. Hemodialysis 04:34 Nephrology service management. 5. Chest pain, non-specific. 6. History of pericarditis. 7. HIV ordered. 8. Elevated CEA. Tumor marker elevated. 9. The patient is status post endoscopy in the recent past 04:[address]: VERO JOB#: [id number] CC:
[2016-08-30] MEDS: Pantoprazole Inj IVP SCH (08:28)
[2016-08-30] MEDS: cloNIDine 0.2mg Tab ORAL SCH (08:40)
--- NOTE | 2016-08-30 10:23 | Infectious Diseases Prog Note ---
Assessment/Plan Assessment/Plan ID consult note # [id number] Subjective Allergies: Coded Allergies: PHENYTOIN SODIUM (Unverified Allergy, Intermediate, Hives, 12/01/11) PHENYTOIN SODIUM EXTENDED (Unverified Allergy, Intermediate, Hives, ) KETOROLAC (Verified Allergy, Mild, SOB, 06/28/11) METOCLOPRAMIDE (Verified Allergy, Mild, RASH, 06/28/11) NITROGLYCERIN (Verified Allergy, Mild, SEIZURES, 06/28/11) PENICILLINS (Verified Allergy, Mild, SOB, 06/28/11) PHENYTOIN (Verified Allergy, Mild, RASH, 06/28/11) ACETAMINOPHEN (Verified Allergy, Unknown, Anaphylaxis, 08/29/16) copied from uncoded section HEPARIN (Verified Allergy, Unknown, Shortness of Breath, 08/28/16) HYDRALAZINE (Verified Allergy, Unknown, 08/28/16) HYDROCODONE (Verified Allergy, Unknown, Anaphylaxis, 08/29/16) copied from uncoded section IBUPROFEN (Verified Allergy, Unknown, RASH, 06/28/11) IODINE (Verified Allergy, Unknown, SHOCK, 06/28/11) POLYSTYRENE SULFONATE (Verified Allergy, Unknown, RASH, 06/28/11) PROMETHAZINE (Verified Allergy, Unknown, RASH, 06/28/11) Objective Vital Signs Last 24 Hour Vital Signs Date Time Temp Pulse Resp B/P Pulse Ox O2 Delivery O2 Flow Rate FiO2 08/30/16 08:47 200/109 08/30/16 08:40 199/117 08/30/16 08:30 86 199/109 08/30/16 08:00 98.4 88 20 194/122 99 Room Air 88 08/30/16 08:00 87 08/30/16 07:41 194/122 08/30/16 04:38 98.2 08/30/16 04:00 98.2 102 18 208/103 100 Room Air 102 08/30/16 04:00 89 08/30/16 03:39 206/116 08/30/16 01:07 110 206/105 08/30/16 00:00 86 08/30/16 00:00 98.1 108 18 204/112 100 Room Air 97 08/29/16 23:32 205/114 08/29/16 21:40 98 205/114 08/29/16 20:00 86 08/29/16 20:00 98.4 97 20 224/108 100 Room Air 97 08/29/16 16:00 86 08/29/16 16:00 98.1 85 20 179/98 100 Room Air 99 08/29/16 12:00 98.0 90 19 182/99 100 Room Air 99 08/29/16 12:00 78 Height (Feet): 5 Height (Inches): 10.00 Weight (Pounds): 135 Laboratory Tests Test 08/30/16 04:00 White Blood Count 4.0 K/UL (4.8-10.8) L Red Blood Count 2.91 M/UL (4.70-6.10) L Hemoglobin 9.1 G/DL (14.2-18.0) L Hematocrit 27.5 % (42.0-52.0) L Mean Corpuscular Volume 94 FL (80-99) Mean Corpuscular Hemoglobin 31.1 PG (27.0-31.0) H Mean Corpuscular Hemoglobin Concent 33.0 G/DL (32.0-36.0) Red Cell Distribution Width 16.5 % (11.6-14.8) H Platelet Count 89 K/UL (150-450) L Mean Platelet Volume 7.1 FL (6.5-10.1) Neutrophils (%) (Auto) % (45.0-75.0) Lymphocytes (%) (Auto) % (20.0-45.0) Monocytes (%) (Auto) % (1.0-10.0) Eosinophils (%) (Auto) % (0.0-3.0) Basophils (%) (Auto) % (0.0-2.0) Sodium Level 137 mEQ/L (135-145) Potassium Level 4.8 mEQ/L (3.4-4.9) Chloride Level 99 mEQ/L (98-107) Carbon Dioxide Level 24 mEQ/L (20-30) Anion Gap 14 (5-15) Blood Urea Nitrogen 54 mg/dL (7-23) H Creatinine 4.6 mg/dL (0.7-1.2) H Estimat Glomerular Filtration Rate 18.3 mL/min (>60) Glucose Level 87 mg/dL (74-106) Calcium Level 8.6 mg/dL (8.6-10.2) Total Bilirubin 0.3 mg/dL (0.0-1.2) Aspartate Amino Transf (AST/SGOT) 13 U/L (5-40) Alanine Aminotransferase (ALT/SGPT) 5 U/L (3-41) Alkaline Phosphatase 3213 U/L (40-129) H Total Protein 5.6 g/dL (6.6-8.7) L Albumin 3.0 g/dL (3.5-5.2) L Globulin 2.6 g/dL Albumin/Globulin Ratio 1.1 (1.0-2.7) HIV (1&2) Antibody Rapid Negative (NEGATIVE) Current Medications Medications (Trade) Dose Ordered Sig/Anant Route PRN Reason Start Time Stop Time Status Last Admin Dose Admin Acetaminophen (Tylenol) 650 mg Q4H PRN ORAL fever 08/28/16 20:30 09/27/16 20:29 Al Hydroxide/Mg Hydroxide (Mylanta II) 30 ml Q6H PRN ORAL dyspepsia 08/28/16 20:30 09/27/16 20:29 Ceftriaxone Sodium/Dextrose (Rocephin/D5W) 55 ml @ 110 mls/hr Q24H IVPB 08/29/16 13:00 09/05/16 12:59 08/29/16 12:45 Clonidine HCl (Catapres) 0.1 mg Q4H PRN ORAL For SBP> 170 08/29/16 03:15 09/28/16 03:14 08/30/16 07:41 Clonidine HCl (Catapres) 0.2 mg DAILY ORAL 08/29/16 09:00 09/28/16 08:59 08/30/16 08:40 Dextrose (Dextrose 50%) STAT PRN IV Hypoglycemia 08/28/16 20:30 09/27/16 20:29 Diphenhydramine HCl (Benadryl) 25 mg Q6H PRN IVP Itching 08/29/16 10:45 09/28/16 10:44 08/30/16 07:37 Divalproex Sodium (Depakote) 250 mg Q12HR ORAL 08/28/16 21:00 09/27/16 20:59 08/29/16 20:58 Epoetin Rajinder (Procrit (for ESRD on dialysis)) 10,000 units SUN-SUN-SUN SUBQ 08/30/16 21:00 09/29/16 20:59 Labetalol HCl (Normodyne) 300 mg Q12HR ORAL 08/29/16 21:00 09/28/16 20:59 08/30/16 08:30 Levetiracetam (Keppra) 1,000 mg Q12HR ORAL 08/28/16 21:00 09/27/16 20:59 08/29/16 20:58 Lorazepam (Ativan 2mg/ml 1ml) 0.5 mg Q4H PRN IV For Anxiety 08/28/16 20:30 09/04/16 20:29 08/29/16 01:00 Morphine Sulfate (Morphine Sulfate) 4 mg Q3H PRN IVP For Pain 08/29/16 09:00 09/05/16 08:59 08/30/16 07:38 Ondansetron HCl (Zofran) 4 mg Q6H PRN IVP Nausea & Vomiting 08/28/16 20:30 09/27/16 20:29 08/29/16 03:50 Pantoprazole (Protonix) 40 mg DAILY IVP 08/30/16 09:00 09/29/16 08:59 08/30/16 08:28 Polyethylene Glycol (Miralax) 17 gm HSPRN PRN ORAL Constipation 08/28/16 20:30 09/27/16 20:29 Vancomycin HCl 1 ea 1 ea DAILY PRN MISC Per rx protocol 08/29/16 10:45 09/28/16 10:44 Zolpidem Tartrate (Ambien) 5 mg HSPRN PRN ORAL Insomnia 08/28/16 20:30 09/27/16 20:29 MARIMAR TORRES Aug 30, 2016 10:23
[2016-08-30] MEDS ORDERED: Enalaprilat 2.5mg/2ml Inj IV PRN (11:45)
--- NOTE | 2016-08-30 12:22 | GI Progress Note ---
Assessment/Plan Problems: (1) Alkaline phosphatase elevation ICD Codes: R74.8 - Abnormal levels of other serum enzymes SNOMED: 743253269 (2) Severe malnutrition ICD Codes: E43 - Unspecified severe protein-calorie malnutrition SNOMED: 26314615 (3) Pancytopenia ICD Codes: D61.818 - Other pancytopenia SNOMED: 601390257 Status: stable Status Narrative Discussed with Dr. Sandoval. Assessment/Plan elevated CEA 8.6 HIV negative OB stool r/o GI bleed >> will consider GI procedures prn transfusion ppi f/u abdominal U/S renal diet fu labs Subjective Gastrointestinal/Abdominal: Reports: no symptoms Objective Last 24 Hour Vital Signs Date Time Temp Pulse Resp B/P Pulse Ox O2 Delivery O2 Flow Rate FiO2 08/30/16 12:00 98.2 89 16 189/112 99 Room Air 08/30/16 11:15 98.4 08/30/16 08:47 200/109 08/30/16 08:40 199/117 08/30/16 08:30 86 199/109 08/30/16 08:00 98.4 88 20 194/122 99 Room Air 88 08/30/16 08:00 87 08/30/16 07:41 194/122 08/30/16 04:00 98.2 102 18 208/103 100 Room Air 102 08/30/16 04:00 89 08/30/16 03:39 206/116 08/30/16 01:07 110 206/105 08/30/16 00:00 86 08/30/16 00:00 98.1 108 18 204/112 100 Room Air 97 08/29/16 23:32 205/114 08/29/16 21:40 98 205/114 08/29/16 20:00 86 08/29/16 20:00 98.4 97 20 224/108 100 Room Air 97 08/29/16 16:00 86 08/29/16 16:00 98.1 85 20 179/98 100 Room Air 99 Intake and Output 08/29/16 08/30/16 19:00 07:00 Intake Total 240 ml 720 ml Balance 240 ml 720 ml Intake Oral 240 ml 720 ml Laboratory Tests Test 08/30/16 04:00 White Blood Count 4.0 K/UL (4.8-10.8) L Red Blood Count 2.91 M/UL (4.70-6.10) L Hemoglobin 9.1 G/DL (14.2-18.0) L Hematocrit 27.5 % (42.0-52.0) L Mean Corpuscular Volume 94 FL (80-99) Mean Corpuscular Hemoglobin 31.1 PG (27.0-31.0) H Mean Corpuscular Hemoglobin Concent 33.0 G/DL (32.0-36.0) Red Cell Distribution Width 16.5 % (11.6-14.8) H Platelet Count 89 K/UL (150-450) L Mean Platelet Volume 7.1 FL (6.5-10.1) Neutrophils (%) (Auto) % (45.0-75.0) Lymphocytes (%) (Auto) % (20.0-45.0) Monocytes (%) (Auto) % (1.0-10.0) Eosinophils (%) (Auto) % (0.0-3.0) Basophils (%) (Auto) % (0.0-2.0) Sodium Level 137 mEQ/L (135-145) Potassium Level 4.8 mEQ/L (3.4-4.9) Chloride Level 99 mEQ/L (98-107) Carbon Dioxide Level 24 mEQ/L (20-30) Anion Gap 14 (5-15) Blood Urea Nitrogen 54 mg/dL (7-23) H Creatinine 4.6 mg/dL (0.7-1.2) H Estimat Glomerular Filtration Rate 18.3 mL/min (>60) Glucose Level 87 mg/dL (74-106) Calcium Level 8.6 mg/dL (8.6-10.2) Total Bilirubin 0.3 mg/dL (0.0-1.2) Aspartate Amino Transf (AST/SGOT) 13 U/L (5-40) Alanine Aminotransferase (ALT/SGPT) 5 U/L (3-41) Alkaline Phosphatase 3213 U/L (40-129) H Total Protein 5.6 g/dL (6.6-8.7) L Albumin 3.0 g/dL (3.5-5.2) L Globulin 2.6 g/dL Albumin/Globulin Ratio 1.1 (1.0-2.7) HIV (1&2) Antibody Rapid Negative (NEGATIVE) Height (Feet): 5 Height (Inches): 10.00 Weight (Pounds): 135 General Appearance: no apparent distress, alert Cardiovascular: normal rate Respiratory/Chest: normal breath sounds, no respiratory distress Abdominal Exam: normal bowel sounds, non tender, soft Extremities: normal range of motion Ashleigh Marie N.P. Aug 30, 2016 12:22
[2016-08-30] MEDS: cefTRIAXone 1 GM in D5W 55 ML IVPB SCH (12:28)
[2016-08-30] MEDS ORDERED: Doxazosin 4mg tab ORAL SCH (12:30)
--- NOTE | 2016-08-30 12:33 | Pulmonology Progress Note ---
Assessment/Plan Problems: (1) Uncontrolled hypertension (2) Pericarditis (3) Chest pain (4) Anemia (5) Pancytopenia (6) ESRF (end stage renal failure) (7) Left hemiplegia (8) History of CVA (cerebrovascular accident) Assessment/Plan add prazoin po and Vasotec IV to control the BP ENT to see for swollen tonsils continue abx check cultures HD by nephrology Subjective ROS Limited/Unobtainable: No Interval Events: c/o swollen tonills Constitutional: Reports: no symptoms HEENT: Repors: no symptoms Respiratory: Reports: no symptoms Allergies: Coded Allergies: PHENYTOIN SODIUM (Unverified Allergy, Intermediate, Hives, 12/01/11) PHENYTOIN SODIUM EXTENDED (Unverified Allergy, Intermediate, Hives, ) KETOROLAC (Verified Allergy, Mild, SOB, 06/28/11) METOCLOPRAMIDE (Verified Allergy, Mild, RASH, 06/28/11) NITROGLYCERIN (Verified Allergy, Mild, SEIZURES, 06/28/11) PENICILLINS (Verified Allergy, Mild, SOB, 06/28/11) PHENYTOIN (Verified Allergy, Mild, RASH, 06/28/11) ACETAMINOPHEN (Verified Allergy, Unknown, Anaphylaxis, 08/29/16) copied from uncoded section HEPARIN (Verified Allergy, Unknown, Shortness of Breath, 08/28/16) HYDRALAZINE (Verified Allergy, Unknown, 08/28/16) HYDROCODONE (Verified Allergy, Unknown, Anaphylaxis, 08/29/16) copied from uncoded section IBUPROFEN (Verified Allergy, Unknown, RASH, 06/28/11) IODINE (Verified Allergy, Unknown, SHOCK, 06/28/11) POLYSTYRENE SULFONATE (Verified Allergy, Unknown, RASH, 06/28/11) PROMETHAZINE (Verified Allergy, Unknown, RASH, 06/28/11) Objective Last 24 Hour Vital Signs Date Time Temp Pulse Resp B/P Pulse Ox O2 Delivery O2 Flow Rate FiO2 08/30/16 12:00 98.2 89 16 189/112 99 Room Air 08/30/16 11:15 98.4 08/30/16 08:47 200/109 08/30/16 08:40 199/117 08/30/16 08:30 86 199/109 08/30/16 08:00 98.4 88 20 194/122 99 Room Air 88 7/26/17 08:00 87 08/30/16 07:41 194/122 08/30/16 04:00 98.2 102 18 208/103 100 Room Air 102 08/30/16 04:00 89 08/30/16 03:39 206/116 08/30/16 01:07 110 206/105 08/30/16 00:00 86 08/30/16 00:00 98.1 108 18 204/112 100 Room Air 97 08/29/16 23:32 205/114 08/29/16 21:40 98 205/114 08/29/16 20:00 86 08/29/16 20:00 98.4 97 20 224/108 100 Room Air 97 08/29/16 16:00 86 08/29/16 16:00 98.1 85 20 179/98 100 Room Air 99 Intake and Output 08/29/16 08/30/16 19:00 07:00 Intake Total 240 ml 720 ml Balance 240 ml 720 ml Intake Oral 240 ml 720 ml General Appearance: WD/WN HEENT: normocephalic Respiratory/Chest: chest wall non-tender, lungs clear Cardiovascular: normal peripheral pulses, normal rate Abdomen: normal bowel sounds, soft, non tender Extremities: no cyanosis Skin: no rash 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, no motor/sensory deficits Lymphatic: no neck adenopathy Laboratory Tests 08/30/16 04:00: White Blood Count 4.0L, Red Blood Count 2.91L, Hemoglobin 9.1L, Hematocrit 27.5L , Mean Corpuscular Volume 94, Mean Corpuscular Hemoglobin 31.1H, Mean Corpuscular Hemoglobin Concent 33.0, Red Cell Distribution Width 16.5H, Platelet Count 89L, Mean Platelet Volume 7.1, Neutrophils (%) (Auto) , Lymphocytes (%) (Auto) , Monocytes (%) (Auto) , Eosinophils (%) (Auto) , Basophils (%) (Auto) , Sodium Level 137, Potassium Level 4.8, Chloride Level 99 , Carbon Dioxide Level 24, Anion Gap 14, Blood Urea Nitrogen 54H, Creatinine 4.6H, Estimat Glomerular Filtration Rate 18.3, Glucose Level 87, Calcium Level 8.6, Total Bilirubin 0.3, Aspartate Amino Transf (AST/SGOT) 13, Alanine Aminotransferase (ALT/SGPT) 5, Alkaline Phosphatase 3213H, Total Protein 5.6L, Albumin 3.0L, Globulin 2.6, Albumin/Globulin Ratio 1.1, HIV (1&2) Antibody Rapid Negative Current Medications Medications (Trade) Dose Ordered Sig/Anant Route PRN Reason Start Time Stop Time Status Last Admin Dose Admin Acetaminophen (Tylenol) 650 mg Q4H PRN ORAL fever 08/28/16 20:30 09/27/16 20:29 Al Hydroxide/Mg Hydroxide (Mylanta II) 30 ml Q6H PRN ORAL dyspepsia 08/28/16 20:30 09/27/16 20:29 Ceftriaxone Sodium/Dextrose (Rocephin/D5W) 55 ml @ 110 mls/hr Q24H IVPB 08/29/16 13:00 09/05/16 12:59 08/29/16 12:45 Clonidine HCl (Catapres) 0.1 mg Q4H PRN ORAL For SBP> 170 08/29/16 03:15 09/28/16 03:14 08/30/16 07:41 Clonidine HCl (Catapres) 0.2 mg DAILY ORAL 08/29/16 09:00 09/28/16 08:59 08/30/16 08:40 Dextrose (Dextrose 50%) STAT PRN IV Hypoglycemia 08/28/16 20:30 09/27/16 20:29 Diphenhydramine HCl (Benadryl) 25 mg Q6H PRN IVP Itching 08/29/16 10:45 09/28/16 10:44 08/30/16 07:37 Divalproex Sodium (Depakote) 250 mg Q12HR ORAL 08/28/16 21:00 09/27/16 20:59 08/29/16 20:58 Enalaprilat (Vasotec) 2.5 mg Q4H PRN IV For High Blood Pressure 08/30/16 13:00 09/29/16 12:59 Epoetin Rajinder (Procrit (for ESRD on dialysis)) 10,000 units SUN-SUN-SUN SUBQ 08/30/16 21:00 09/29/16 20:59 Labetalol HCl (Normodyne) 300 mg Q12HR ORAL 08/29/16 21:00 09/28/16 20:59 08/30/16 08:30 Levetiracetam (Keppra) 1,000 mg Q12HR ORAL 08/28/16 21:00 09/27/16 20:59 08/29/16 20:58 Lorazepam (Ativan 2mg/ml 1ml) 0.5 mg Q4H PRN IV For Anxiety 08/28/16 20:30 09/04/16 20:29 08/29/16 01:00 Morphine Sulfate (Morphine Sulfate) 4 mg Q3H PRN IVP For Pain 08/29/16 09:00 09/05/16 08:59 08/30/16 10:46 Ondansetron HCl (Zofran) 4 mg Q6H PRN IVP Nausea & Vomiting 08/28/16 20:30 09/27/16 20:29 08/29/16 03:50 Pantoprazole (Protonix) 40 mg DAILY IVP 08/30/16 09:00 09/29/16 08:59 08/30/16 08:28 Polyethylene Glycol (Miralax) 17 gm HSPRN PRN ORAL Constipation 08/28/16 20:30 09/27/16 20:29 Vancomycin HCl 1 ea 1 ea DAILY PRN MISC Per rx protocol 08/29/16 10:45 09/28/16 10:44 Zolpidem Tartrate (Ambien) 5 mg HSPRN PRN ORAL Insomnia 08/28/16 20:30 09/27/16 20:29 BETHEL PACK Aug 30, 2016 12:33
--- NOTE | 2016-08-30 12:53 | Nephrology Progress Note ---
Assessment/Plan Plan ENT to advise re swollen neck. For HD tomorrow. Subjective Subjective c/o "swollen neck and throat as a result of the blood I got".. Objective Objective Last 24 Hour Vital Signs Date Time Temp Pulse Resp B/P Pulse Ox O2 Delivery O2 Flow Rate FiO2 08/30/16 12:00 98.2 89 16 189/112 99 Room Air 08/30/16 11:30 90 08/30/16 11:15 98.4 08/30/16 08:47 200/109 08/30/16 08:40 199/117 08/30/16 08:30 86 199/109 08/30/16 08:00 98.4 88 20 194/122 99 Room Air 88 08/30/16 08:00 87 08/30/16 07:41 194/122 08/30/16 04:00 98.2 102 18 208/103 100 Room Air 102 08/30/16 04:00 89 08/30/16 03:39 206/116 08/30/16 01:07 110 206/105 08/30/16 00:00 86 08/30/16 00:00 98.1 108 18 204/112 100 Room Air 97 08/29/16 23:32 205/114 08/29/16 21:40 98 205/114 08/29/16 20:00 86 08/29/16 20:00 98.4 97 20 224/108 100 Room Air 97 08/29/16 16:00 86 08/29/16 16:00 98.1 85 20 179/98 100 Room Air 99 Intake and Output 08/29/16 08/30/16 19:00 07:00 Intake Total 240 ml 720 ml Balance 240 ml 720 ml Intake Oral 240 ml 720 ml Laboratory Tests 08/30/16 04:00: White Blood Count 4.0L, Red Blood Count 2.91L, Hemoglobin 9.1L, Hematocrit 27.5L , Mean Corpuscular Volume 94, Mean Corpuscular Hemoglobin 31.1H, Mean Corpuscular Hemoglobin Concent 33.0, Red Cell Distribution Width 16.5H, Platelet Count 89L, Mean Platelet Volume 7.1, Neutrophils (%) (Auto) , Lymphocytes (%) (Auto) , Monocytes (%) (Auto) , Eosinophils (%) (Auto) , Basophils (%) (Auto) , Sodium Level 137, Potassium Level 4.8, Chloride Level 99 , Carbon Dioxide Level 24, Anion Gap 14, Blood Urea Nitrogen 54H, Creatinine 4.6H, Estimat Glomerular Filtration Rate 18.3, Glucose Level 87, Calcium Level 8.6, Total Bilirubin 0.3, Aspartate Amino Transf (AST/SGOT) 13, Alanine Aminotransferase (ALT/SGPT) 5, Alkaline Phosphatase 3213H, Total Protein 5.6L, Albumin 3.0L, Globulin 2.6, Albumin/Globulin Ratio 1.1, HIV (1&2) Antibody Rapid Negative Height (Feet): 5 Height (Inches): 10.00 Weight (Pounds): 135 Objective Cachechtic Neck supple. Lungs CTA CV RR Abd SNT. BS + E CAPRICE AVF + bruit. ARNIE SWEET Aug 30, 2016 12:53
--- NOTE | 2016-08-30 13:16 | Consultation ---
DATE OF CONSULTATION: 08/30/2016 INFECTIOUS DISEASE CONSULTATION This consult is for coverage of Dr. Nina. PRIMARY ATTENDING PHYSICIAN: Kaylah Hayward M.D. REASON FOR CONSULT: Pericarditis. HISTORY OF PRESENT ILLNESS: This is a 30-year-old male admitted on 08/28/2016 after hemodialysis because of chest pain and hypertension. The patient states that he had a recent admission to other hospital, and he was on IV antibiotic for pericarditis using ceftriaxone and vancomycin. PAST MEDICAL HISTORY: End-stage renal disease on hemodialysis, hypertension, coronary artery disease, CVA and left hemiplegia, hyperparathyroidism, and myopathy. PAST SURGICAL HISTORY: Bilateral nephrectomy because of hypertension. ALLERGIES: Allergic to Tylenol, heparin, hydralazine, hydrocodone, ibuprofen, ketorolac, iodine, metoclopramide, and nitroglycerin. SOCIAL HISTORY: He lives at home with parents. No history of alcohol, drug abuse, or smoking. Single. REVIEW OF SYSTEMS: No fever. No chills. Had difficulty of swallowing and sore throat because of enlarged tonsil. The doctor told him that he had to have surgery. He had chest pain that is worse with lying down in the center of the chest. No nausea. No vomiting. No diarrhea. He does not make any urine. PHYSICAL EXAMINATION: GENERAL APPEARANCE: Seems to be thin. VITAL SIGNS: Temperature 98.4, pulse 88, and blood pressure 200/109. HEAD AND NECK: No oral lesion. Have enlarged tonsil, but without any exudate. HEART: Regular. LUNGS: Clear. ABDOMEN: Soft. EXTREMITIES: He has flexion contracture in left arm. No edema. LABORATORY AND DIAGNOSTIC DATA: WBC is 4000, hemoglobin 9.1, hematocrit 27.5, and platelets 89,000. Sodium 137, potassium 4.8, chloride 99, bicarbonate 24, BUN 54, creatinine 4.6, and glucose 87. Alkaline phosphatase is 3213. Albumin is 3. AST, ALT, and bilirubin are within normal limits. HIV test negative. Chest x-ray showed cardiomegaly. venous duplex of the leg showed recanalized chronic thrombus emboli, . IMPRESSION: 1. Pericarditis. the patient was on IV antibiotic beforeadmission. 2. Enlarged tonsils. 3. Hypertension. 4. End-stage renal disease, on hemodialysis. 5. Pancytopenia. RECOMMENDATION: We will continue with ceftriaxone and vancomycin. We will try to obtain more information from the other hospital. We suggest ENT evaluation for enlarged tonsils. At the end of my exam, I thank Dr. Hayward, for involving me in the care of this patient. Jeff Robledo M.D. DR: LATOYA JOB#: [id number] CC: LINA
--- NOTE | 2016-08-30 13:35 | General Progress Note ---
Assessment/Plan Assessment/Plan 1. Pancytopenia especially secondary to underlying inflammatory process. At this time hold off on bone marrow biopsy due to ESRD and HD. 2. History of CVA. He had been on aspirin before. 3. End-stage renal disease. 4. Hemodialysis. Nephrology service management. 5. Chest pain, non-specific. 6. History of pericarditis. 7. HIV ordered. --> negative 8. Elevated CEA. Tumor marker elevated. 9. Uncontrolled hypertension --> bp seems to be better controlled with addition of Prazoin and Vasotec IV Subjective Constitutional: Reports: no symptoms HEENT: Reports: no symptoms Cardiovascular: Reports: no symptoms Respiratory: Reports: no symptoms Gastrointestinal/Abdominal: Reports: no symptoms Genitourinary: Reports: no symptoms Neurologic/Psychiatric: Reports: no symptoms Endocrine: Reports: no symptoms Allergies: Coded Allergies: PHENYTOIN SODIUM (Unverified Allergy, Intermediate, Hives, 12/01/11) PHENYTOIN SODIUM EXTENDED (Unverified Allergy, Intermediate, Hives, ) KETOROLAC (Verified Allergy, Mild, SOB, 06/28/11) METOCLOPRAMIDE (Verified Allergy, Mild, RASH, 06/28/11) NITROGLYCERIN (Verified Allergy, Mild, SEIZURES, 06/28/11) PENICILLINS (Verified Allergy, Mild, SOB, 06/28/11) PHENYTOIN (Verified Allergy, Mild, RASH, 06/28/11) ACETAMINOPHEN (Verified Allergy, Unknown, Anaphylaxis, 08/29/16) copied from uncoded section HEPARIN (Verified Allergy, Unknown, Shortness of Breath, 08/28/16) HYDRALAZINE (Verified Allergy, Unknown, 08/28/16) HYDROCODONE (Verified Allergy, Unknown, Anaphylaxis, 08/29/16) copied from uncoded section IBUPROFEN (Verified Allergy, Unknown, RASH, 06/28/11) IODINE (Verified Allergy, Unknown, SHOCK, 06/28/11) POLYSTYRENE SULFONATE (Verified Allergy, Unknown, RASH, 06/28/11) PROMETHAZINE (Verified Allergy, Unknown, RASH, 06/28/11) Subjective bp slowly improving Objective Last 24 Hour Vital Signs Date Time Temp Pulse Resp B/P Pulse Ox O2 Delivery O2 Flow Rate FiO2 08/30/16 12:30 147/106 08/30/16 12:00 98.2 89 16 189/112 99 Room Air 08/30/16 11:30 90 08/30/16 11:15 98.4 08/30/16 08:47 200/109 08/30/16 08:40 199/117 08/30/16 08:30 86 199/109 08/30/16 08:00 98.4 88 20 194/122 99 Room Air 88 08/30/16 08:00 87 08/30/16 07:41 194/122 08/30/16 04:00 98.2 102 18 208/103 100 Room Air 102 08/30/16 04:00 89 08/30/16 03:39 206/116 08/30/16 01:07 110 206/105 08/30/16 00:00 86 08/30/16 00:00 98.1 108 18 204/112 100 Room Air 97 08/29/16 23:32 205/114 08/29/16 21:40 98 205/114 08/29/16 20:00 86 08/29/16 20:00 98.4 97 20 224/108 100 Room Air 97 08/29/16 16:00 86 08/29/16 16:00 98.1 85 20 179/98 100 Room Air 99 Intake and Output 08/29/16 08/30/16 19:00 07:00 Intake Total 240 ml 720 ml Balance 240 ml 720 ml Intake Oral 240 ml 720 ml Laboratory Tests 08/30/16 04:00: White Blood Count 4.0L, Red Blood Count 2.91L, Hemoglobin 9.1L, Hematocrit 27.5L , Mean Corpuscular Volume 94, Mean Corpuscular Hemoglobin 31.1H, Mean Corpuscular Hemoglobin Concent 33.0, Red Cell Distribution Width 16.5H, Platelet Count 89L, Mean Platelet Volume 7.1, Neutrophils (%) (Auto) , Lymphocytes (%) (Auto) , Monocytes (%) (Auto) , Eosinophils (%) (Auto) , Basophils (%) (Auto) , Sodium Level 137, Potassium Level 4.8, Chloride Level 99 , Carbon Dioxide Level 24, Anion Gap 14, Blood Urea Nitrogen 54H, Creatinine 4.6H, Estimat Glomerular Filtration Rate 18.3, Glucose Level 87, Calcium Level 8.6, Total Bilirubin 0.3, Aspartate Amino Transf (AST/SGOT) 13, Alanine Aminotransferase (ALT/SGPT) 5, Alkaline Phosphatase 3213H, Total Protein 5.6L, Albumin 3.0L, Globulin 2.6, Albumin/Globulin Ratio 1.1, HIV (1&2) Antibody Rapid Negative Height (Feet): 5 Height (Inches): 10.00 Weight (Pounds): 135 General Appearance: no apparent distress EENT: PERRL/EOMI Neck: normal alignment Cardiovascular: normal peripheral pulses Respiratory/Chest: chest wall non-tender Abdomen: normal bowel sounds Extremities: normal range of motion Edema: no edema noted Pedal (L), no edema noted Pedal (R) 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
[2016-08-30] MEDS: Lisinopril 10mg tab ORAL SCH (14:10)
--- NOTE | 2016-08-30 14:51 | General Progress Note ---
Progress Note Progress Note ENT Note dictate Suggest Cornelio's solution 5cc swish and swallow TID x 5 days KARISHMA DENSON Aug 30, 2016 14:51
[2016-08-30] MEDS: Enalaprilat 2.5mg/2ml Inj IV PRN (16:33)
[2016-08-30] MEDS ORDERED: Epogen (for ESRD on dialysis) SUBQ SCH (21:00)
--- NOTE | 2016-08-30 21:46 | Consultation ---
DATE OF CONSULTATION: 08/30/2016 HEAD AND NECK SURGERY/ENT CONSULTATION REFERRING PHYSICIAN: Kaylah Hayward M.D. CONSULTING PHYSICIAN: Thomas Rodriguez M.D. REASON FOR CONSULTATION: Sore throat. I have read over the notes, the patient is communicative, but does not make sense. HISTORY OF PRESENT ILLNESS: He is an unfortunate 30-year-old male, who is poorly compliant with dialysis for end-stage renal failure taking this from the chart, severe anemia, chronic kidney disease, advance myopathy with skeletal muscle deformities, uremia, seizure disorder, hypertensive cardiovascular disease, and secondary hyperparathyroidism. He has a long list of allergies most according to the record are side effects. He was admitted to the hospital for dialysis. FAMILY HISTORY: Unremarkable according to the chart. MEDICATIONS: His medications in the hospital include Tylenol, Mylanta, Catapres, Benadryl, with Vasotec, Procrit for dialysis, Normodyne, Keppra, Zestril, Ativan, morphine sulfate, Zofran, Protonix, MiraLax, vancomycin, and Ambien. PHYSICAL EXAMINATION: VITAL SIGNS: Height 177.8 cm and weight is 61.235 kilograms. GENERAL: He is lying back in bed. HEENT: He has some white foam on the back of his throat, but he is able to talk with no airway obstruction. Ears positive reflex. Normal canals. NECK: Normal. ASSESSMENT: Cornelio solution swish and spit three times a day for 5 days, although it is unlikely he is going to continue this according to the records and how he is in and out often. Thank you very much for asking my opinion in the care and treatment on this patient. Thomas Rodriguez M.D. DR: TEREZA JOB#: [id number] CC: LINA
[2016-08-31] VITALS: BP 160/110
[2016-08-31] MEDS: Morphine Sulfate 4mg/ml Inj IVP PRN ×8 (00:05→22:53)
[2016-08-31] MEDS: DiphenhydrAMINE 50mg/ml Inj IVP PRN ×4 (03:04→19:53)
[2016-08-31 04:00] VITALS: BP 149/103
[2016-08-31] MEDS ORDERED: Heparin Sod 1000 units/ml 10ml IV PRN (06:00)
[2016-08-31 06:03] LABS: MEAN CORPUSCULAR HEMOGLOBIN 30.6 PG (27.0-31.0); MEAN CORPUSCULAR HGB CONC 32.2 G/DL (32.0-36.0); MEAN CORPUSCULAR VOLUME 95 FL (80-99); MEAN PLATELET VOLUME 6.9 FL (6.5-10.1); PLATELET COUNT 90 K/UL (150-450); RED BLOOD COUNT 2.68 M/UL (4.70-6.10); RED CELL DISTRIBUTION WIDTH 16.2 % (11.6-14.8); WHITE BLOOD COUNT 4.3 K/UL (4.8-10.8)
[2016-08-31 06:26] LABS: ALBUMIN/GLOBULIN RATIO 1.1 (1.0-2.7); CALCIUM 8.7 mg/dL (8.6-10.2); CREATININE 5.8 mg/dL (0.7-1.2); GLOMERULAR FILTRATION RATE 13.9 mL/min (>60); POTASSIUM 5.5 mEQ/L (3.4-4.9); TOTAL PROTEIN 5.4 g/dL (6.6-8.7)
[2016-08-31 07:46] LABS: ANISOCYTOSIS 1+; BAND NEUTROPHILS % (MANUAL) 0 % (0-8); BASOPHILS % (MANUAL) 0 % (0-2); EOSINOPHILS % (MANUAL) 7 % (0-3); HYPOCHROMASIA 1+; LYMPHOCYTES % (MANUAL) 34 % (20-45); NEUTROPHILS % (MANUAL) 56 % (45-75); PLATELET ESTIMATE DECREASED; PLATELET MORPHOLOGY NORMAL; TOTAL CELLS COUNTED 100
[2016-08-31 07:49] VITALS: BP 155/91
[2016-08-31] MEDS: Pantoprazole Inj IVP SCH (08:32)
[2016-08-31] MEDS: Lisinopril 10mg tab ORAL SCH (08:32)
[2016-08-31] MEDS: cloNIDine 0.2mg Tab ORAL SCH (09:00)
[2016-08-31 11:27] VITALS: BP 164/93
--- NOTE | 2016-08-31 12:01 | GI Progress Note ---
Assessment/Plan Problems: (1) Alkaline phosphatase elevation ICD Codes: R74.8 - Abnormal levels of other serum enzymes SNOMED: 431937758 (2) Severe malnutrition ICD Codes: E43 - Unspecified severe protein-calorie malnutrition SNOMED: 15658423 (3) Pancytopenia ICD Codes: D61.818 - Other pancytopenia SNOMED: 102627711 Status: stable, unchanged Status Narrative Discussed with Dr. Sandoval. Assessment/Plan elevated CEA 8.6 HIV negative OB stool r/o GI bleed >> will consider GI procedures prn transfusion ppi f/u abdominal U/S f/u hep panel renal diet fu labs Subjective Subjective generalized weakness Objective Last 24 Hour Vital Signs Date Time Temp Pulse Resp B/P Pulse Ox O2 Delivery O2 Flow Rate FiO2 08/31/16 11:27 97.9 93 16 164/93 99 Room Air 08/31/16 09:00 99 155/91 08/31/16 08:32 155/91 08/31/16 08:00 99 08/31/16 07:49 96.8 97 20 155/91 98 Room Air 08/31/16 04:00 94 08/31/16 04:00 98.1 97 20 149/103 100 Room Air 08/31/16 00:00 97.9 96 20 160/110 100 Room Air 08/31/16 00:00 96 08/30/16 20:39 92 157/98 08/30/16 20:00 97.9 92 20 157/98 100 Room Air 08/30/16 19:39 100 08/30/16 18:45 168/100 08/30/16 18:00 97.9 08/30/16 16:33 161/105 08/30/16 16:00 91 08/30/16 16:00 97.9 16 161/105 97 Room Air 08/30/16 14:10 152/100 08/30/16 12:30 147/106 08/30/16 12:00 98.2 89 16 189/112 99 Room Air Intake and Output 08/30/16 08/31/16 19:00 07:00 Intake Total 255 ml 200 ml Balance 255 ml 200 ml Intake Oral 200 ml 200 ml IV Total 55 ml # Bowel Movements 2 Laboratory Tests Test 08/31/16 04:00 White Blood Count 4.3 K/UL (4.8-10.8) L Red Blood Count 2.68 M/UL (4.70-6.10) L Hemoglobin 8.2 G/DL (14.2-18.0) L Hematocrit 25.5 % (42.0-52.0) L Mean Corpuscular Volume 95 FL (80-99) Mean Corpuscular Hemoglobin 30.6 PG (27.0-31.0) Mean Corpuscular Hemoglobin Concent 32.2 G/DL (32.0-36.0) Red Cell Distribution Width 16.2 % (11.6-14.8) H Platelet Count 90 K/UL (150-450) L Mean Platelet Volume 6.9 FL (6.5-10.1) Neutrophils (%) (Auto) % (45.0-75.0) Lymphocytes (%) (Auto) % (20.0-45.0) Monocytes (%) (Auto) % (1.0-10.0) Eosinophils (%) (Auto) % (0.0-3.0) Basophils (%) (Auto) % (0.0-2.0) Differential Total Cells Counted 100 Neutrophils % (Manual) 56 % (45-75) Lymphocytes % (Manual) 34 % (20-45) Monocytes % (Manual) 3 % (1-10) Eosinophils % (Manual) 7 % (0-3) H Basophils % (Manual) 0 % (0-2) Band Neutrophils 0 % (0-8) Platelet Estimate Decreased L Platelet Morphology Normal Hypochromasia 1+ Anisocytosis 1+ Sodium Level 134 mEQ/L (135-145) L Potassium Level 5.5 mEQ/L (3.4-4.9) H Chloride Level 96 mEQ/L (98-107) L Carbon Dioxide Level 23 mEQ/L (20-30) Anion Gap 15 (5-15) Blood Urea Nitrogen 89 mg/dL (7-23) #H Creatinine 5.8 mg/dL (0.7-1.2) H Estimat Glomerular Filtration Rate 13.9 mL/min (>60) Glucose Level 85 mg/dL (74-106) Calcium Level 8.7 mg/dL (8.6-10.2) Total Bilirubin 0.3 mg/dL (0.0-1.2) Aspartate Amino Transf (AST/SGOT) 13 U/L (5-40) Alanine Aminotransferase (ALT/SGPT) 5 U/L (3-41) Alkaline Phosphatase 3086 U/L (40-129) H Total Protein 5.4 g/dL (6.6-8.7) L Albumin 2.9 g/dL (3.5-5.2) L Globulin 2.5 g/dL Albumin/Globulin Ratio 1.1 (1.0-2.7) Random Vancomycin Level 16.0 ug/mL Height (Feet): 5 Height (Inches): 10.00 Weight (Pounds): 135 General Appearance: no apparent distress, alert Cardiovascular: normal rate Respiratory/Chest: normal breath sounds, no respiratory distress Abdominal Exam: normal bowel sounds, non tender, soft Genitourinary/Rectal: normal rectal exam Extremities: non-tender Ashleigh Marie N.P. Aug 31, 2016 12:01
[2016-08-31] MEDS: cefTRIAXone 1 GM in D5W 55 ML IVPB SCH (12:36)
--- NOTE | 2016-08-31 12:48 | Infectious Diseases Prog Note ---
Assessment/Plan Assessment/Plan ASSESSMENT: 30 y/o male with: // Reported pericarditis on IV vancomycin, rocephin prior to admission // Negative HIV // Pancytopenia, afebrile - heme following // CVA // CAD // ESRD / HD // Chronic LLE DVT // VRE colonized // PCN allergy - tolerating rocephin // Full Code PLAN: - continue IV vancomycin, rocephin per outside providers - monitor CBC, temperatures - monitor BMP Subjective Allergies: Coded Allergies: PHENYTOIN SODIUM (Unverified Allergy, Intermediate, Hives, 12/01/11) PHENYTOIN SODIUM EXTENDED (Unverified Allergy, Intermediate, Hives, ) KETOROLAC (Verified Allergy, Mild, SOB, 06/28/11) METOCLOPRAMIDE (Verified Allergy, Mild, RASH, 06/28/11) NITROGLYCERIN (Verified Allergy, Mild, SEIZURES, 06/28/11) PENICILLINS (Verified Allergy, Mild, SOB, 06/28/11) PHENYTOIN (Verified Allergy, Mild, RASH, 06/28/11) ACETAMINOPHEN (Verified Allergy, Unknown, Anaphylaxis, 08/29/16) copied from uncoded section HEPARIN (Verified Allergy, Unknown, Shortness of Breath, 08/28/16) HYDRALAZINE (Verified Allergy, Unknown, 08/28/16) HYDROCODONE (Verified Allergy, Unknown, Anaphylaxis, 08/29/16) copied from uncoded section IBUPROFEN (Verified Allergy, Unknown, RASH, 06/28/11) IODINE (Verified Allergy, Unknown, SHOCK, 06/28/11) POLYSTYRENE SULFONATE (Verified Allergy, Unknown, RASH, 06/28/11) PROMETHAZINE (Verified Allergy, Unknown, RASH, 06/28/11) Subjective remains afebrile Objective Vital Signs Last 24 Hour Vital Signs Date Time Temp Pulse Resp B/P Pulse Ox O2 Delivery O2 Flow Rate FiO2 08/31/16 11:27 97.9 93 16 164/93 99 Room Air 08/31/16 09:00 99 155/91 08/31/16 08:32 155/91 08/31/16 08:00 99 08/31/16 07:49 96.8 97 20 155/91 98 Room Air 08/31/16 04:00 94 08/31/16 04:00 98.1 97 20 149/103 100 Room Air 08/31/16 00:00 97.9 96 20 160/110 100 Room Air 08/31/16 00:00 96 08/30/16 20:39 92 157/98 08/30/16 20:00 97.9 92 20 157/98 100 Room Air 08/30/16 19:39 100 08/30/16 18:45 168/100 08/30/16 18:00 97.9 08/30/16 16:33 161/105 08/30/16 16:00 91 08/30/16 16:00 97.9 16 161/105 97 Room Air 08/30/16 14:10 152/100 Height (Feet): 5 Height (Inches): 10.00 Weight (Pounds): 135 General Appearance: no acute distress Respiratory/Chest: normal breath sounds Cardiovascular: normal rate, regular rhythm Abdomen: normal bowel sounds, soft, non tender, non distended Microbiology Date/Time Source Procedure Growth Status 08/28/16 22:30 Nasal Nares MRSA Culture - Final NO METHICILLIN RESISTANT STAPH AUREUS... Complete 08/28/16 22:30 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 - Vre Complete Laboratory Tests Test 08/31/16 04:00 White Blood Count 4.3 K/UL (4.8-10.8) L Red Blood Count 2.68 M/UL (4.70-6.10) L Hemoglobin 8.2 G/DL (14.2-18.0) L Hematocrit 25.5 % (42.0-52.0) L Mean Corpuscular Volume 95 FL (80-99) Mean Corpuscular Hemoglobin 30.6 PG (27.0-31.0) Mean Corpuscular Hemoglobin Concent 32.2 G/DL (32.0-36.0) Red Cell Distribution Width 16.2 % (11.6-14.8) H Platelet Count 90 K/UL (150-450) L Mean Platelet Volume 6.9 FL (6.5-10.1) Neutrophils (%) (Auto) % (45.0-75.0) Lymphocytes (%) (Auto) % (20.0-45.0) Monocytes (%) (Auto) % (1.0-10.0) Eosinophils (%) (Auto) % (0.0-3.0) Basophils (%) (Auto) % (0.0-2.0) Differential Total Cells Counted 100 Neutrophils % (Manual) 56 % (45-75) Lymphocytes % (Manual) 34 % (20-45) Monocytes % (Manual) 3 % (1-10) Eosinophils % (Manual) 7 % (0-3) H Basophils % (Manual) 0 % (0-2) Band Neutrophils 0 % (0-8) Platelet Estimate Decreased L Platelet Morphology Normal Hypochromasia 1+ Anisocytosis 1+ Sodium Level 134 mEQ/L (135-145) L Potassium Level 5.5 mEQ/L (3.4-4.9) H Chloride Level 96 mEQ/L (98-107) L Carbon Dioxide Level 23 mEQ/L (20-30) Anion Gap 15 (5-15) Blood Urea Nitrogen 89 mg/dL (7-23) #H Creatinine 5.8 mg/dL (0.7-1.2) H Estimat Glomerular Filtration Rate 13.9 mL/min (>60) Glucose Level 85 mg/dL (74-106) Calcium Level 8.7 mg/dL (8.6-10.2) Total Bilirubin 0.3 mg/dL (0.0-1.2) Aspartate Amino Transf (AST/SGOT) 13 U/L (5-40) Alanine Aminotransferase (ALT/SGPT) 5 U/L (3-41) Alkaline Phosphatase 3086 U/L (40-129) H Total Protein 5.4 g/dL (6.6-8.7) L Albumin 2.9 g/dL (3.5-5.2) L Globulin 2.5 g/dL Albumin/Globulin Ratio 1.1 (1.0-2.7) Random Vancomycin Level 16.0 ug/mL Current Medications Medications (Trade) Dose Ordered Sig/Anant Route PRN Reason Start Time Stop Time Status Last Admin Dose Admin Acetaminophen (Tylenol) 650 mg Q4H PRN ORAL fever 08/28/16 20:30 09/27/16 20:29 Al Hydroxide/Mg Hydroxide (Mylanta II) 30 ml Q6H PRN ORAL dyspepsia 08/28/16 20:30 09/27/16 20:29 Ceftriaxone Sodium/Dextrose (Rocephin/D5W) 55 ml @ 110 mls/hr Q24H IVPB 08/29/16 13:00 09/05/16 12:59 08/30/16 12:28 Clonidine HCl (Catapres) 0.1 mg Q4H PRN ORAL For SBP> 170 08/29/16 03:15 09/28/16 03:14 08/30/16 18:45 Clonidine HCl (Catapres) 0.2 mg DAILY ORAL 08/29/16 09:00 09/28/16 08:59 08/30/16 08:40 Dextrose (Dextrose 50%) STAT PRN IV Hypoglycemia 08/28/16 20:30 09/27/16 20:29 Diphenhydramine HCl (Benadryl) 25 mg Q6H PRN IVP Itching 08/29/16 10:45 09/28/16 10:44 08/31/16 09:36 Divalproex Sodium (Depakote) 250 mg Q12HR ORAL 08/28/16 21:00 09/27/16 20:59 08/31/16 08:31 Enalaprilat (Vasotec) 2.5 mg Q4H PRN IV For High Blood Pressure 08/30/16 13:00 09/29/16 12:59 08/30/16 16:33 Epoetin Rajinder (Procrit (for ESRD on dialysis)) 10,000 units SUN-SUN-SUN SUBQ 08/30/16 21:00 09/29/16 20:59 08/30/16 23:05 Heparin Sodium (Porcine) (Heparin Sod 1000 units/ml 10ml) 2,000 unit ONCE PRN IV FOR HD 08/31/16 06:00 08/31/16 23:59 Labetalol HCl (Normodyne) 300 mg Q12HR ORAL 08/29/16 21:00 09/28/16 20:59 08/30/16 20:39 Levetiracetam (Keppra) 1,000 mg Q12HR ORAL 08/28/16 21:00 09/27/16 20:59 08/31/16 08:31 Lisinopril 10 mg 10 mg DAILY ORAL 08/30/16 13:30 09/29/16 13:29 08/31/16 08:32 Lorazepam (Ativan 2mg/ml 1ml) 0.5 mg Q4H PRN IV For Anxiety 08/28/16 20:30 09/04/16 20:29 08/29/16 01:00 Morphine Sulfate (Morphine Sulfate) 4 mg Q3H PRN IVP For Pain 08/29/16 09:00 09/05/16 08:59 08/31/16 12:32 Ondansetron HCl (Zofran) 4 mg Q6H PRN IVP Nausea & Vomiting 08/28/16 20:30 09/27/16 20:29 08/29/16 03:50 Pantoprazole (Protonix) 40 mg DAILY IVP 08/30/16 09:00 09/29/16 08:59 08/31/16 08:32 Polyethylene Glycol (Miralax) 17 gm HSPRN PRN ORAL Constipation 08/28/16 20:30 09/27/16 20:29 Sodium Chloride (Sodium Chloride 1000ml bag) 1,000 ml @ 500 mls/hr Q2H PRN IVLG sbp<90 during hd 08/31/16 06:00 08/31/16 23:59 Vancomycin HCl 1 ea 1 ea DAILY PRN MISC Per rx protocol 08/29/16 10:45 09/28/16 10:44 Zolpidem Tartrate (Ambien) 5 mg HSPRN PRN ORAL Insomnia 08/28/16 20:30 09/27/16 20:29 SONJA ASTORGA Aug 31, 2016 12:48
--- NOTE | 2016-08-31 13:11 | Pulmonology Progress Note ---
Assessment/Plan Problems: (1) Uncontrolled hypertension (2) Pericarditis (3) Chest pain (4) Anemia (5) Pancytopenia (6) ESRF (end stage renal failure) (7) Left hemiplegia (8) History of CVA (cerebrovascular accident) Assessment/Plan bp is better ENT evaluation appreciated continue abx check cultures HD by nephrology Subjective ROS Limited/Unobtainable: No Constitutional: Reports: no symptoms HEENT: Repors: no symptoms Respiratory: Reports: no symptoms Allergies: Coded Allergies: PHENYTOIN SODIUM (Unverified Allergy, Intermediate, Hives, 12/01/11) PHENYTOIN SODIUM EXTENDED (Unverified Allergy, Intermediate, Hives, ) KETOROLAC (Verified Allergy, Mild, SOB, 06/28/11) METOCLOPRAMIDE (Verified Allergy, Mild, RASH, 06/28/11) NITROGLYCERIN (Verified Allergy, Mild, SEIZURES, 06/28/11) PENICILLINS (Verified Allergy, Mild, SOB, 06/28/11) PHENYTOIN (Verified Allergy, Mild, RASH, 06/28/11) ACETAMINOPHEN (Verified Allergy, Unknown, Anaphylaxis, 08/29/16) copied from uncoded section HEPARIN (Verified Allergy, Unknown, Shortness of Breath, 08/28/16) HYDRALAZINE (Verified Allergy, Unknown, 08/28/16) HYDROCODONE (Verified Allergy, Unknown, Anaphylaxis, 08/29/16) copied from uncoded section IBUPROFEN (Verified Allergy, Unknown, RASH, 06/28/11) IODINE (Verified Allergy, Unknown, SHOCK, 06/28/11) POLYSTYRENE SULFONATE (Verified Allergy, Unknown, RASH, 06/28/11) PROMETHAZINE (Verified Allergy, Unknown, RASH, 06/28/11) Objective Last 24 Hour Vital Signs Date Time Temp Pulse Resp B/P Pulse Ox O2 Delivery O2 Flow Rate FiO2 08/31/16 12:49 85 08/31/16 11:27 97.9 93 16 164/93 99 Room Air 08/31/16 09:00 99 155/91 08/31/16 08:32 155/91 08/31/16 08:00 99 08/31/16 07:49 96.8 97 20 155/91 98 Room Air 08/31/16 04:00 94 08/31/16 04:00 98.1 97 20 149/103 100 Room Air 08/31/16 00:00 97.9 96 20 160/110 100 Room Air 08/31/16 00:00 96 08/30/16 20:39 92 157/98 08/30/16 20:00 97.9 92 20 157/98 100 Room Air 08/30/16 19:39 100 08/30/16 18:45 168/100 08/30/16 18:00 97.9 08/30/16 16:33 161/105 08/30/16 16:00 91 08/30/16 16:00 97.9 16 161/105 97 Room Air 08/30/16 14:10 152/100 Intake and Output 08/30/16 08/31/16 19:00 07:00 Intake Total 255 ml 200 ml Balance 255 ml 200 ml Intake Oral 200 ml 200 ml IV Total 55 ml # Bowel Movements 2 General Appearance: WD/WN HEENT: normocephalic, atraumatic Respiratory/Chest: chest wall non-tender, lungs clear Cardiovascular: normal peripheral pulses, normal rate Abdomen: normal bowel sounds, soft, non tender Extremities: no cyanosis, no clubbing Skin: no rash, no ulcers Microbiology Date/Time Source Procedure Growth Status 08/28/16 22:30 Nasal Nares MRSA Culture - Final NO METHICILLIN RESISTANT STAPH AUREUS... Complete 08/28/16 22:30 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 - Vre Complete Laboratory Tests 08/31/16 04:00: White Blood Count 4.3L, Red Blood Count 2.68L, Hemoglobin 8.2L, Hematocrit 25.5L , Mean Corpuscular Volume 95, Mean Corpuscular Hemoglobin 30.6, Mean Corpuscular Hemoglobin Concent 32.2, Red Cell Distribution Width 16.2H, Platelet Count 90L, Mean Platelet Volume 6.9, Neutrophils (%) (Auto) , Lymphocytes (%) (Auto) , Monocytes (%) (Auto) , Eosinophils (%) (Auto) , Basophils (%) (Auto) , Differential Total Cells Counted 100, Neutrophils % ( Manual) 56, Lymphocytes % (Manual) 34, Monocytes % (Manual) 3, Eosinophils % ( Manual) 7H, Basophils % (Manual) 0, Band Neutrophils 0, Platelet Estimate DecreasedL, Platelet Morphology Normal, Hypochromasia 1+, Anisocytosis 1+, Sodium Level 134L, Potassium Level 5.5H, Chloride Level 96L, Carbon Dioxide Level 23, Anion Gap 15, Blood Urea Nitrogen 89#H, Creatinine 5.8H, Estimat Glomerular Filtration Rate 13.9, Glucose Level 85, Calcium Level 8.7, Total Bilirubin 0.3, Aspartate Amino Transf (AST/SGOT) 13, Alanine Aminotransferase ( ALT/SGPT) 5, Alkaline Phosphatase 3086H, Total Protein 5.4L, Albumin 2.9L, Globulin 2.5, Albumin/Globulin Ratio 1.1, Random Vancomycin Level 16.0 Current Medications Medications (Trade) Dose Ordered Sig/Anatn Route PRN Reason Start Time Stop Time Status Last Admin Dose Admin Acetaminophen (Tylenol) 650 mg Q4H PRN ORAL fever 08/28/16 20:30 09/27/16 20:29 Al Hydroxide/Mg Hydroxide (Mylanta II) 30 ml Q6H PRN ORAL dyspepsia 08/28/16 20:30 09/27/16 20:29 Ceftriaxone Sodium/Dextrose (Rocephin/D5W) 55 ml @ 110 mls/hr Q24H IVPB 08/29/16 13:00 09/05/16 12:59 08/31/16 12:36 Clonidine HCl (Catapres) 0.1 mg Q4H PRN ORAL For SBP> 170 08/29/16 03:15 09/28/16 03:14 08/30/16 18:45 Clonidine HCl (Catapres) 0.2 mg DAILY ORAL 08/29/16 09:00 09/28/16 08:59 08/30/16 08:40 Dextrose (Dextrose 50%) STAT PRN IV Hypoglycemia 08/28/16 20:30 09/27/16 20:29 Diphenhydramine HCl (Benadryl) 25 mg Q6H PRN IVP Itching 08/29/16 10:45 09/28/16 10:44 08/31/16 09:36 Divalproex Sodium (Depakote) 250 mg Q12HR ORAL 08/28/16 21:00 09/27/16 20:59 08/31/16 08:31 Enalaprilat (Vasotec) 2.5 mg Q4H PRN IV For High Blood Pressure 08/30/16 13:00 09/29/16 12:59 08/30/16 16:33 Epoetin Rajinder (Procrit (for ESRD on dialysis)) 10,000 units SUN-SUN-SUN SUBQ 08/30/16 21:00 09/29/16 20:59 08/30/16 23:05 Heparin Sodium (Porcine) (Heparin Sod 1000 units/ml 10ml) 2,000 unit ONCE PRN IV FOR HD 08/31/16 06:00 08/31/16 23:59 Labetalol HCl (Normodyne) 300 mg Q12HR ORAL 08/29/16 21:00 09/28/16 20:59 08/30/16 20:39 Levetiracetam (Keppra) 1,000 mg Q12HR ORAL 08/28/16 21:00 09/27/16 20:59 08/31/16 08:31 Lisinopril 10 mg 10 mg DAILY ORAL 08/30/16 13:30 09/29/16 13:29 08/31/16 08:32 Lorazepam (Ativan 2mg/ml 1ml) 0.5 mg Q4H PRN IV For Anxiety 08/28/16 20:30 09/04/16 20:29 08/29/16 01:00 Morphine Sulfate (Morphine Sulfate) 4 mg Q3H PRN IVP For Pain 08/29/16 09:00 09/05/16 08:59 08/31/16 12:32 Ondansetron HCl (Zofran) 4 mg Q6H PRN IVP Nausea & Vomiting 08/28/16 20:30 09/27/16 20:29 08/29/16 03:50 Pantoprazole (Protonix) 40 mg DAILY IVP 08/30/16 09:00 09/29/16 08:59 08/31/16 08:32 Polyethylene Glycol (Miralax) 17 gm HSPRN PRN ORAL Constipation 08/28/16 20:30 09/27/16 20:29 Sodium Chloride (Sodium Chloride 1000ml bag) 1,000 ml @ 500 mls/hr Q2H PRN IVLG sbp<90 during hd 08/31/16 06:00 08/31/16 23:59 Vancomycin HCl 1 ea 1 ea DAILY PRN MISC Per rx protocol 08/29/16 10:45 09/28/16 10:44 Zolpidem Tartrate (Ambien) 5 mg HSPRN PRN ORAL Insomnia 08/28/16 20:30 09/27/16 20:29 BETHEL PACK Aug 31, 2016 13:11
[2016-08-31] MEDS: Enalaprilat 2.5mg/2ml Inj IV PRN (13:57)
[2016-08-31 16:00] VITALS: BP 163/104
[2016-08-31] MEDS ORDERED: Vancomycin 1 GM in NS 275 ML IVPB ONE (16:00)
--- NOTE | 2016-08-31 17:10 | Nephrology Progress Note ---
Assessment/Plan Plan ENT noted WNL. Awaiting HD. Patient is at his baseline. Subjective Subjective No new c/o Objective Objective Last 24 Hour Vital Signs Date Time Temp Pulse Resp B/P Pulse Ox O2 Delivery O2 Flow Rate FiO2 08/31/16 16:00 97.7 89 16 163/104 98 Room Air 08/31/16 16:00 94 08/31/16 13:57 166/91 08/31/16 13:02 97.9 08/31/16 12:49 85 08/31/16 11:27 97.9 93 16 164/93 99 Room Air 08/31/16 09:00 99 155/91 08/31/16 08:32 155/91 08/31/16 08:00 99 08/31/16 07:49 96.8 97 20 155/91 98 Room Air 08/31/16 04:00 94 08/31/16 04:00 98.1 97 20 149/103 100 Room Air 08/31/16 00:00 97.9 96 20 160/110 100 Room Air 08/31/16 00:00 96 08/30/16 20:39 92 157/98 08/30/16 20:00 97.9 92 20 157/98 100 Room Air 08/30/16 19:39 100 08/30/16 18:45 168/100 Intake and Output 08/30/16 08/31/16 19:00 07:00 Intake Total 255 ml 200 ml Balance 255 ml 200 ml Intake Oral 200 ml 200 ml IV Total 55 ml # Bowel Movements 2 Laboratory Tests 08/31/16 04:00: White Blood Count 4.3L, Red Blood Count 2.68L, Hemoglobin 8.2L, Hematocrit 25.5L , Mean Corpuscular Volume 95, Mean Corpuscular Hemoglobin 30.6, Mean Corpuscular Hemoglobin Concent 32.2, Red Cell Distribution Width 16.2H, Platelet Count 90L, Mean Platelet Volume 6.9, Neutrophils (%) (Auto) , Lymphocytes (%) (Auto) , Monocytes (%) (Auto) , Eosinophils (%) (Auto) , Basophils (%) (Auto) , Differential Total Cells Counted 100, Neutrophils % ( Manual) 56, Lymphocytes % (Manual) 34, Monocytes % (Manual) 3, Eosinophils % ( Manual) 7H, Basophils % (Manual) 0, Band Neutrophils 0, Platelet Estimate DecreasedL, Platelet Morphology Normal, Hypochromasia 1+, Anisocytosis 1+, Sodium Level 134L, Potassium Level 5.5H, Chloride Level 96L, Carbon Dioxide Level 23, Anion Gap 15, Blood Urea Nitrogen 89#H, Creatinine 5.8H, Estimat Glomerular Filtration Rate 13.9, Glucose Level 85, Calcium Level 8.7, Total Bilirubin 0.3, Aspartate Amino Transf (AST/SGOT) 13, Alanine Aminotransferase ( ALT/SGPT) 5, Alkaline Phosphatase 3086H, Total Protein 5.4L, Albumin 2.9L, Globulin 2.5, Albumin/Globulin Ratio 1.1, Random Vancomycin Level 16.0 08/31/16 13:40: Stool Occult Blood Negative Height (Feet): 5 Height (Inches): 10.00 Weight (Pounds): 135 Objective Cachechtic Neck supple. Lungs CTA CV RR Abd SNT. BS + E CAPRICE AVF + bruit. ARNIE SWEET Aug 31, 2016 17:10
[2016-08-31] MEDS ORDERED: Heparin Sod 1000 units/ml 10ml IV SCH (17:45)
[2016-08-31] MEDS ORDERED: Mylanta II UD 30ml ORAL PRN (18:00)
[2016-08-31] MEDS ORDERED: Enalaprilat 2.5mg/2ml Inj IV PRN (18:06)
[2016-08-31] MEDS ORDERED: Miralax 17gm pkt ORAL PRN (18:13)
[2016-08-31] MEDS ORDERED: LORazepam Inj 2mg/ml 1ml IV PRN (18:15)
[2016-08-31 20:22] VITALS: BP 157/101
[2016-08-31] MEDS ORDERED: Zolpidem 5mg tab ORAL PRN (20:30)
[2016-08-31] MEDS: Dyna-Hex 2% Top Sol 8oz TOPIC SCH (20:35)
--- NOTE | 2016-08-31 20:38 | General Progress Note ---
Assessment/Plan Assessment/Plan 1. Pancytopenia especially secondary to underlying inflammatory process. At this time hold off on bone marrow biopsy due to ESRD and HD. --> monitor labs --> hgb goal above 7, transfuse prn 2. History of CVA. He had been on aspirin before. 3. End-stage renal disease. 4. Hemodialysis. Nephrology service management. 5. Chest pain, non-specific. 6. History of pericarditis. 7. HIV ordered. --> negative 8. Elevated CEA. Tumor marker elevated. 9. Uncontrolled hypertension --> bp seems to be better controlled with addition of Prazoin and Vasotec IV Subjective Constitutional: Reports: no symptoms HEENT: Reports: no symptoms Cardiovascular: Reports: no symptoms Respiratory: Reports: no symptoms Gastrointestinal/Abdominal: Reports: no symptoms Genitourinary: Reports: no symptoms Neurologic/Psychiatric: Reports: no symptoms Endocrine: Reports: no symptoms Hematologic/Lymphatic: Reports: anemia Allergies: Coded Allergies: PHENYTOIN SODIUM (Unverified Allergy, Intermediate, Hives, 12/01/11) PHENYTOIN SODIUM EXTENDED (Unverified Allergy, Intermediate, Hives, ) KETOROLAC (Verified Allergy, Mild, SOB, 06/28/11) METOCLOPRAMIDE (Verified Allergy, Mild, RASH, 06/28/11) NITROGLYCERIN (Verified Allergy, Mild, SEIZURES, 06/28/11) PENICILLINS (Verified Allergy, Mild, SOB, 06/28/11) PHENYTOIN (Verified Allergy, Mild, RASH, 06/28/11) ACETAMINOPHEN (Verified Allergy, Unknown, Shortness of Breath, 08/31/16) swelling throat, difficulty breathing HEPARIN (Verified Allergy, Unknown, Shortness of Breath, 08/28/16) HYDRALAZINE (Verified Allergy, Unknown, 08/28/16) HYDROCODONE (Verified Allergy, Unknown, Shortness of Breath, 08/31/16) swelling throat, difficulty breathing IBUPROFEN (Verified Allergy, Unknown, RASH, 06/28/11) IODINE (Verified Allergy, Unknown, SHOCK, 06/28/11) POLYSTYRENE SULFONATE (Verified Allergy, Unknown, RASH, 06/28/11) PROMETHAZINE (Verified Allergy, Unknown, RASH, 06/28/11) Subjective afebrile, no events Objective Last 24 Hour Vital Signs Date Time Temp Pulse Resp B/P Pulse Ox O2 Delivery O2 Flow Rate FiO2 08/31/16 20:22 96.8 74 18 157/101 100 Room Air 08/31/16 16:00 97.7 89 16 163/104 98 Room Air 08/31/16 16:00 94 08/31/16 13:57 166/91 08/31/16 13:02 97.9 08/31/16 12:49 85 08/31/16 11:27 97.9 93 16 164/93 99 Room Air 08/31/16 09:00 99 155/91 08/31/16 08:32 155/91 08/31/16 08:00 99 08/31/16 07:49 96.8 97 20 155/91 98 Room Air 08/31/16 04:00 94 08/31/16 04:00 98.1 97 20 149/103 100 Room Air 08/31/16 00:00 97.9 96 20 160/110 100 Room Air 08/31/16 00:00 96 08/30/16 20:39 92 157/98 Intake and Output 08/30/16 08/31/16 19:00 07:00 Intake Total 255 ml 200 ml Balance 255 ml 200 ml Intake Oral 200 ml 200 ml IV Total 55 ml # Bowel Movements 2 Laboratory Tests 08/31/16 04:00: White Blood Count 4.3L, Red Blood Count 2.68L, Hemoglobin 8.2L, Hematocrit 25.5L , Mean Corpuscular Volume 95, Mean Corpuscular Hemoglobin 30.6, Mean Corpuscular Hemoglobin Concent 32.2, Red Cell Distribution Width 16.2H, Platelet Count 90L, Mean Platelet Volume 6.9, Neutrophils (%) (Auto) , Lymphocytes (%) (Auto) , Monocytes (%) (Auto) , Eosinophils (%) (Auto) , Basophils (%) (Auto) , Differential Total Cells Counted 100, Neutrophils % ( Manual) 56, Lymphocytes % (Manual) 34, Monocytes % (Manual) 3, Eosinophils % ( Manual) 7H, Basophils % (Manual) 0, Band Neutrophils 0, Platelet Estimate DecreasedL, Platelet Morphology Normal, Hypochromasia 1+, Anisocytosis 1+, Sodium Level 134L, Potassium Level 5.5H, Chloride Level 96L, Carbon Dioxide Level 23, Anion Gap 15, Blood Urea Nitrogen 89#H, Creatinine 5.8H, Estimat Glomerular Filtration Rate 13.9, Glucose Level 85, Calcium Level 8.7, Total Bilirubin 0.3, Aspartate Amino Transf (AST/SGOT) 13, Alanine Aminotransferase ( ALT/SGPT) 5, Alkaline Phosphatase 3086H, Total Protein 5.4L, Albumin 2.9L, Globulin 2.5, Albumin/Globulin Ratio 1.1, Random Vancomycin Level 16.0 08/31/16 13:40: Stool Occult Blood Negative Height (Feet): 5 Height (Inches): 10.00 Weight (Pounds): 135 General Appearance: no apparent distress EENT: normal ENT inspection Neck: normal alignment Cardiovascular: normal peripheral pulses Respiratory/Chest: chest wall non-tender Abdomen: no organomegaly Edema: no edema noted Pedal (L), no edema noted Pedal (R) Skin: warm/dry Chavo Alfaro Aug 31, 2016 20:38
[2016-08-31] MEDS ORDERED: Dyna-Hex 2% Top Sol 8oz TOPIC SCH (21:00)
[2016-08-31] MEDS: D5 1/2NS 1,000 ML IV SCH (22:12)
[2016-09-01] VITALS (9 sets, daily range): BP systolic 114–165; BP diastolic 55–100
[2016-09-01] MEDS: Morphine Sulfate 4mg/ml Inj IVP PRN ×7 (01:53→21:54)
[2016-09-01] MEDS: DiphenhydrAMINE 50mg/ml Inj IVP PRN ×3 (01:53→18:11)
[2016-09-01 07:46] LABS: MEAN CORPUSCULAR HEMOGLOBIN 30.6 PG (27.0-31.0); MEAN CORPUSCULAR HGB CONC 32.3 G/DL (32.0-36.0); MEAN CORPUSCULAR VOLUME 95 FL (80-99); MEAN PLATELET VOLUME 6.6 FL (6.5-10.1); PLATELET COUNT 107 K/UL (150-450); RED BLOOD COUNT 2.54 M/UL (4.70-6.10); RED CELL DISTRIBUTION WIDTH 16.3 % (11.6-14.8)
[2016-09-01 07:47] LABS: PROTHROMBIN TIME 10.4 SEC (9.30-11.50)
[2016-09-01 08:02] LABS: ALBUMIN/GLOBULIN RATIO 1.5 (1.0-2.7); CALCIUM 8.4 mg/dL (8.6-10.2); CREATININE 7.4 mg/dL (0.7-1.2); GLOMERULAR FILTRATION RATE 10.5 mL/min (>60); POTASSIUM 5.7 mEQ/L (3.4-4.9); TOTAL PROTEIN 5.6 g/dL (6.6-8.7)
[2016-09-01] MEDS: Dyna-Hex 2% Top Sol 8oz TOPIC SCH (08:08)
[2016-09-01] MEDS: Pantoprazole Inj IVP SCH (08:08)
[2016-09-01] MEDS: cloNIDine 0.2mg Tab ORAL SCH (09:00)
[2016-09-01] MEDS: Lisinopril 10mg tab ORAL SCH (09:00)
[2016-09-01 10:11] LABS: ANISOCYTOSIS 1+; BAND NEUTROPHILS % (MANUAL) 0 % (0-8); BASOPHILS % (MANUAL) 3 % (0-2); EOSINOPHILS % (MANUAL) 6 % (0-3); HYPOCHROMASIA 3+; LYMPHOCYTES % (MANUAL) 24 % (20-45); NEUTROPHILS % (MANUAL) 60 % (45-75); PLATELET ESTIMATE DECREASED; PLATELET MORPHOLOGY NORMAL; SPHEROCYTES 2+; TOTAL CELLS COUNTED 100
--- NOTE | 2016-09-01 12:13 | Infectious Diseases Prog Note ---
Assessment/Plan Assessment/Plan ASSESSMENT: 30 y/o male with: // Recurrent pericarditis on IV vancomycin, rocephin prior to admission - h/o PCW, repeated pericardiocenteses @ [facility] // Negative HIV // Pancytopenia, afebrile - heme following // CVA // CAD // ESRD / HD // Chronic LLE DVT // VRE colonized // PCN allergy - tolerating rocephin // Full Code PLAN: - continue IV vancomycin, rocephin until mid september per outside providers - monitor CBC, temperatures - monitor BMP Subjective Allergies: Coded Allergies: PHENYTOIN SODIUM (Unverified Allergy, Intermediate, Hives, 12/01/11) PHENYTOIN SODIUM EXTENDED (Unverified Allergy, Intermediate, Hives, ) KETOROLAC (Verified Allergy, Mild, SOB, 06/28/11) METOCLOPRAMIDE (Verified Allergy, Mild, RASH, 06/28/11) NITROGLYCERIN (Verified Allergy, Mild, SEIZURES, 06/28/11) PENICILLINS (Verified Allergy, Mild, SOB, 06/28/11) PHENYTOIN (Verified Allergy, Mild, RASH, 06/28/11) ACETAMINOPHEN (Verified Allergy, Unknown, Shortness of Breath, 08/31/16) swelling throat, difficulty breathing HEPARIN (Verified Allergy, Unknown, Shortness of Breath, 08/28/16) HYDRALAZINE (Verified Allergy, Unknown, 08/28/16) HYDROCODONE (Verified Allergy, Unknown, Shortness of Breath, 08/31/16) swelling throat, difficulty breathing IBUPROFEN (Verified Allergy, Unknown, RASH, 06/28/11) IODINE (Verified Allergy, Unknown, SHOCK, 06/28/11) POLYSTYRENE SULFONATE (Verified Allergy, Unknown, RASH, 06/28/11) PROMETHAZINE (Verified Allergy, Unknown, RASH, 06/28/11) Subjective remains afebrile no new complaint Objective Vital Signs Last 24 Hour Vital Signs Date Time Temp Pulse Resp B/P Pulse Ox O2 Delivery O2 Flow Rate FiO2 09/01/16 09:00 160/92 09/01/16 09:00 109 160/92 09/01/16 09:00 160/92 09/01/16 08:36 98.2 109 22 160/92 100 Room Air 09/01/16 04:18 97.2 105 20 157/100 100 Room Air 09/01/16 00:13 97.5 92 19 140/80 99 Room Air 08/31/16 21:47 74 157/101 08/31/16 20:22 96.8 74 18 157/101 100 Room Air 08/31/16 16:00 97.7 89 16 163/104 98 Room Air 08/31/16 16:00 94 08/31/16 13:57 166/91 08/31/16 13:02 97.9 08/31/16 12:49 85 Height (Feet): 5 Height (Inches): 10.00 Weight (Pounds): 135 Laboratory Tests Test 08/31/16 13:40 09/01/16 05:00 Stool Occult Blood Negative (NEGATIVE) White Blood Count 5.0 K/UL (4.8-10.8) Red Blood Count 2.54 M/UL (4.70-6.10) L Hemoglobin 7.8 G/DL (14.2-18.0) L Hematocrit 24.2 % (42.0-52.0) L Mean Corpuscular Volume 95 FL (80-99) Mean Corpuscular Hemoglobin 30.6 PG (27.0-31.0) Mean Corpuscular Hemoglobin Concent 32.3 G/DL (32.0-36.0) Red Cell Distribution Width 16.3 % (11.6-14.8) H Platelet Count 107 K/UL (150-450) L Mean Platelet Volume 6.6 FL (6.5-10.1) Neutrophils (%) (Auto) % (45.0-75.0) Lymphocytes (%) (Auto) % (20.0-45.0) Monocytes (%) (Auto) % (1.0-10.0) Eosinophils (%) (Auto) % (0.0-3.0) Basophils (%) (Auto) % (0.0-2.0) Differential Total Cells Counted 100 Neutrophils % (Manual) 60 % (45-75) Lymphocytes % (Manual) 24 % (20-45) Monocytes % (Manual) 7 % (1-10) Eosinophils % (Manual) 6 % (0-3) H Basophils % (Manual) 3 % (0-2) H Band Neutrophils 0 % (0-8) Platelet Estimate Decreased L Platelet Morphology Normal Hypochromasia 3+ Anisocytosis 1+ Spherocytes 2+ Prothrombin Time 10.4 SEC (9.30-11.50) Prothromb Time International Ratio 1.0 (0.9-1.1) Activated Partial Thromboplast Time 35 SEC (23-33) H Sodium Level 137 mEQ/L (135-145) Potassium Level 5.7 mEQ/L (3.4-4.9) H Chloride Level 94 mEQ/L (98-107) L Carbon Dioxide Level 22 mEQ/L (20-30) Anion Gap 21 (5-15) H Blood Urea Nitrogen 115 mg/dL (7-23) #H Creatinine 7.4 mg/dL (0.7-1.2) H Estimat Glomerular Filtration Rate 10.5 mL/min (>60) Glucose Level 86 mg/dL (74-106) Calcium Level 8.4 mg/dL (8.6-10.2) L Total Bilirubin 0.3 mg/dL (0.0-1.2) Gamma Glutamyl Transpeptidase 41 U/L (8-61) Aspartate Amino Transf (AST/SGOT) 14 U/L (5-40) Alanine Aminotransferase (ALT/SGPT) 5 U/L (3-41) Alkaline Phosphatase 2842 U/L (40-129) H Total Protein 5.6 g/dL (6.6-8.7) L Albumin 3.4 g/dL (3.5-5.2) L Globulin 2.2 g/dL Albumin/Globulin Ratio 1.5 (1.0-2.7) Hepatitis A IgM Antibody Pending Hepatitis B Surface Antigen Pending Hepatitis B Core IgM Antibody Pending Hepatitis C Antibody Pending Current Medications Medications (Trade) Dose Ordered Sig/Anant Route PRN Reason Start Time Stop Time Status Last Admin Dose Admin Acetaminophen (Tylenol) 650 mg Q4H PRN ORAL fever 08/31/16 18:04 09/30/16 18:03 Al Hydroxide/Mg Hydroxide (Mylanta II) 30 ml Q6H PRN ORAL dyspepsia 08/31/16 18:00 09/30/16 17:59 Ceftriaxone Sodium 1 gm/ Dextrose 55 ml @ 110 mls/hr Q24H IVPB 09/01/16 13:00 09/08/16 12:59 Chlorhexidine Gluconate (Yessi-Hex 2%) 1 applic DAILY TOPIC 08/31/16 21:00 09/30/16 20:59 09/01/16 08:08 Clonidine HCl (Catapres) 0.1 mg Q4H PRN ORAL For SBP> 170 08/31/16 18:05 09/30/16 18:04 Clonidine HCl (Catapres) 0.2 mg DAILY ORAL 09/01/16 09:00 10/01/16 08:59 Dextrose (Dextrose 50%) STAT PRN IV Hypoglycemia 08/31/16 18:05 09/30/16 18:04 Dextrose/Sodium Chloride (D5 0.45% NS) 1,000 ml @ 50 mls/hr Q20H IV 08/31/16 22:15 09/30/16 22:14 08/31/16 22:12 Diphenhydramine HCl (Benadryl) 25 mg Q6H PRN IVP Itching 08/31/16 18:06 09/30/16 18:05 09/01/16 08:08 Divalproex Sodium (Depakote) 250 mg Q12HR ORAL 08/31/16 21:00 09/30/16 20:59 Enalaprilat (Vasotec) 2.5 mg Q4H PRN IV SBP > 160 08/31/16 18:06 09/30/16 18:05 Epoetin Rajinder (Procrit (for ESRD on dialysis)) 10,000 units SUN-SUN-SUN SUBQ 09/01/16 21:00 10/01/16 20:59 Heparin Sodium (Porcine) (Heparin Sod 1000 units/ml 10ml) 2,000 unit ONCE IV 08/31/16 17:45 09/01/16 23:59 Labetalol HCl (Normodyne) 300 mg Q12HR ORAL 08/31/16 21:00 09/30/16 20:59 08/31/16 21:47 Levetiracetam (Keppra) 1,000 mg Q12HR ORAL 08/31/16 21:00 09/30/16 20:59 08/31/16 20:36 Lisinopril (Zestril) 10 mg DAILY ORAL 09/01/16 09:00 10/01/16 08:59 Lorazepam (Ativan 2mg/ml 1ml) 0.5 mg Q4H PRN IV For Anxiety 08/31/16 18:15 09/07/16 18:14 Morphine Sulfate (Morphine Sulfate) 4 mg Q3H PRN IVP For Severe Pain 08/31/16 18:00 09/07/16 17:59 09/01/16 11:17 Ondansetron HCl (Zofran) 4 mg Q6H PRN IVP Nausea & Vomiting 08/31/16 18:13 09/30/16 18:12 09/01/16 09:46 Pantoprazole (Protonix) 40 mg DAILY IVP 09/01/16 09:00 10/01/16 08:59 09/01/16 08:08 Polyethylene Glycol (Miralax) 17 gm HSPRN PRN ORAL Constipation 08/31/16 18:13 09/30/16 18:12 Sodium Chloride (Sodium Chloride 1000ml bag) 1,000 ml @ 500 mls/hr Q2H PRN IVLG sbp<90 during hd 08/31/16 18:04 09/01/16 23:59 Vancomycin HCl (Vanco rx to dose) 1 ea DAILY PRN MISC Per rx protocol 08/31/16 18:14 09/30/16 18:13 Zolpidem Tartrate 5 mg 5 mg HSPRN PRN ORAL Insomnia 08/31/16 20:30 09/30/16 20:29 SONJA ASTORGA Sep 01, 2016 12:13
--- NOTE | 2016-09-01 12:26 | Pre-Procedure Note/Attestation ---
Pre-Procedure Note/Attestation Complete Prior to Procedure Planned Procedure: not applicable Procedure Narrative: EGD Indications for Procedure Pre-Operative Diagnosis: gib Attestation I attest that I discussed the nature of the procedure; its benefits; risks and complications; and alternatives (and the risks and benefits of such alternatives ), prior to the procedure, with the patient (or the patient's legal telecommunications sales representative). I attest that, if there was a reasonable possibility of needing a blood transfusion, the patient (or the patient's legal telecommunications sales representative) was given the [facility] standardized written summary, pursuant to the Irvin [place] Blood Safety Act ([place] Health and Safety Code # 1645, as amended). I attest that I re-evaluated the patient just prior to the surgery and that there has been no change in the patient's H&P, except as documented below: JEN VALDEZ Sep 01, 2016 12:26
[2016-09-01] MEDS ORDERED: Lidocaine 1% MPF 10mg/ml 5ml ONE (12:30)
[2016-09-01] MEDS ORDERED: Propofol 10mg/ml 20ml IV ONE (12:30)
[2016-09-01] MEDS ORDERED: LR 1000ml ONE (12:30)
[2016-09-01] MEDS ORDERED: NS 550ML IV ONE (12:40)
[2016-09-01] MEDS ORDERED: EPINEPHrine 1mg/10ml Syringe IV ONE (12:55)
--- NOTE | 2016-09-01 13:07 | Nephrology Progress Note ---
Assessment/Plan Plan ENT noted WNL. Awaiting HD -postponed from yesterday. For EGD. Patient with h/o Uremic Gastritis. Patient is at his baseline. Subjective Subjective Has [place] Emesis - had it before multiple times. Objective Objective Last 24 Hour Vital Signs Date Time Temp Pulse Resp B/P Pulse Ox O2 Delivery O2 Flow Rate FiO2 09/01/16 09:00 160/92 09/01/16 09:00 109 160/92 09/01/16 09:00 160/92 09/01/16 08:36 98.2 109 22 160/92 100 Room Air 09/01/16 04:18 97.2 105 20 157/100 100 Room Air 09/01/16 00:13 97.5 92 19 140/80 99 Room Air 08/31/16 21:47 74 157/101 08/31/16 20:22 96.8 74 18 157/101 100 Room Air 08/31/16 16:00 97.7 89 16 163/104 98 Room Air 08/31/16 16:00 94 08/31/16 13:57 166/91 08/31/16 13:02 97.9 Intake and Output 08/31/16 09/01/16 19:00 07:00 Intake Total 55 ml 350 ml Balance 55 ml 350 ml IV Total 55 ml 350 ml # Bowel Movements 2 Laboratory Tests 08/31/16 13:40: Stool Occult Blood Negative 09/01/16 05:00: White Blood Count 5.0, Red Blood Count 2.54L, Hemoglobin 7.8L, Hematocrit 24.2L , Mean Corpuscular Volume 95, Mean Corpuscular Hemoglobin 30.6, Mean Corpuscular Hemoglobin Concent 32.3, Red Cell Distribution Width 16.3H, Platelet Count 107L, Mean Platelet Volume 6.6, Neutrophils (%) (Auto) , Lymphocytes (%) (Auto) , Monocytes (%) (Auto) , Eosinophils (%) (Auto) , Basophils (%) (Auto) , Differential Total Cells Counted 100, Neutrophils % ( Manual) 60, Lymphocytes % (Manual) 24, Monocytes % (Manual) 7, Eosinophils % ( Manual) 6H, Basophils % (Manual) 3H, Band Neutrophils 0, Platelet Estimate DecreasedL, Platelet Morphology Normal, Hypochromasia 3+, Anisocytosis 1+, Spherocytes 2+, Prothrombin Time 10.4, Prothromb Time International Ratio 1.0, Activated Partial Thromboplast Time 35H, Sodium Level 137, Potassium Level 5.7H , Chloride Level 94L, Carbon Dioxide Level 22, Anion Gap 21H, Blood Urea Nitrogen 115#H, Creatinine 7.4H, Estimat Glomerular Filtration Rate 10.5, Glucose Level 86, Calcium Level 8.4L, Total Bilirubin 0.3, Gamma Glutamyl Transpeptidase 41, Aspartate Amino Transf (AST/SGOT) 14, Alanine Aminotransferase (ALT/SGPT) 5, Alkaline Phosphatase 2842H, Total Protein 5.6L, Albumin 3.4L, Globulin 2.2, Albumin/Globulin Ratio 1.5, Hepatitis A IgM Antibody [Pending], Hepatitis B Surface Antigen [Pending], Hepatitis B Core IgM Antibody [Pending], Hepatitis C Antibody [Pending] Height (Feet): 5 Height (Inches): 10.00 Weight (Pounds): 135 Objective Cachechtic Neck supple. Lungs CTA CV RR Abd SNT. BS + E CAPRICE AVF + bruit. ARNIE SWEET Sep 01, 2016 13:07
--- NOTE | 2016-09-01 13:24 | Immediate Post-Op Evaluation ---
Immediate Post-Op Evalulation Immediate Post-Op Evalulation Procedure: EGD Date of Evaluation: Sep 01, 2016 Time of Evaluation: 13:23 IV Fluids: 500 Blood Pressure Systolic: 160 Blood Pressure Diastolic: 90 Pulse Rate: 97 Respiratory Rate: 14 O2 Sat by Pulse Oximetry: 98 Temperature (Fahrenheit): 97.5 Nausea: No Vomiting: No Complications none Patient Status: awake, reacts, patent Hydration Status: adequate Drug: none FLY JIMENEZ CRNA Sep 01, 2016 13:24
--- NOTE | 2016-09-01 13:29 | Anethesia Preoperative Eval ---
Anesthesia Pre-op PMH/ROS General Date of Evaluation: Sep 01, 2016 Time of Evaluation: 13:28 Anesthesiologist: andrew ASA Score: ASA 4 Mallampati Score Class I : Soft palate, uvula, fauces, pillars visible Class II: Soft palate, uvula, fauces visible Class III: Soft palate, base of uvula visible Class IV: Only hard plate visible Mallampati Classification: Class III Surgeon: jass Diagnosis: Anemia Surgical Procedure: EGD Anesthesia History: none Allergies: Coded Allergies: PHENYTOIN SODIUM (Unverified Allergy, Intermediate, Hives, 12/01/11) PHENYTOIN SODIUM EXTENDED (Unverified Allergy, Intermediate, Hives, ) KETOROLAC (Verified Allergy, Mild, SOB, 06/28/11) METOCLOPRAMIDE (Verified Allergy, Mild, RASH, 06/28/11) NITROGLYCERIN (Verified Allergy, Mild, SEIZURES, 06/28/11) PENICILLINS (Verified Allergy, Mild, SOB, 06/28/11) PHENYTOIN (Verified Allergy, Mild, RASH, 06/28/11) ACETAMINOPHEN (Verified Allergy, Unknown, Shortness of Breath, 08/31/16) swelling throat, difficulty breathing HEPARIN (Verified Allergy, Unknown, Shortness of Breath, 08/28/16) HYDRALAZINE (Verified Allergy, Unknown, 08/28/16) HYDROCODONE (Verified Allergy, Unknown, Shortness of Breath, 08/31/16) swelling throat, difficulty breathing IBUPROFEN (Verified Allergy, Unknown, RASH, 06/28/11) IODINE (Verified Allergy, Unknown, SHOCK, 06/28/11) POLYSTYRENE SULFONATE (Verified Allergy, Unknown, RASH, 06/28/11) PROMETHAZINE (Verified Allergy, Unknown, RASH, 06/28/11) Medications: see eMAR Past Medical History Cardiovascular: Reports: HTN Pulmonary: Reports: LUISA Gastrointestinal/Genitourinary: Reports: ESRD Neurologic/Psychiatric: Reports: CVA Hematology/Immune: Reports: anemia PMH Narrative: 30 year old make with hx of ESRF, on HD, CVA, htn, pericarditis, presented from dialysis with chest pain and hypertension. He states he has a history of pericarditis and has a central line in the left chest that he is receiving antibiotics for. Left Paraplegia Anesthesia Pre-op Phys. Exam Physician Exam Last Vital Signs Date Time Temp Pulse Resp B/P Pulse Ox O2 Delivery O2 Flow Rate FiO2 09/01/16 09:00 160/92 09/01/16 09:00 109 09/01/16 08:36 98.2 22 100 Room Air Constitutional: NAD Neurologic: CN 2-12 intact Cardiovascular: RRR Respiratory: CTA Gastrointestinal: S/NT/ND Airway Exam MO: limited ROM: limited Dentures: no lower, no upper Anesthesia Pre-op A/P Labs Hematology Test 09/01/16 05:00 White Blood Count 5.0 K/UL (4.8-10.8) Red Blood Count 2.54 M/UL (4.70-6.10) L Hemoglobin 7.8 G/DL (14.2-18.0) L Hematocrit 24.2 % (42.0-52.0) L Mean Corpuscular Volume 95 FL (80-99) Mean Corpuscular Hemoglobin 30.6 PG (27.0-31.0) Mean Corpuscular Hemoglobin Concent 32.3 G/DL (32.0-36.0) Red Cell Distribution Width 16.3 % (11.6-14.8) H Platelet Count 107 K/UL (150-450) L Mean Platelet Volume 6.6 FL (6.5-10.1) Neutrophils (%) (Auto) % (45.0-75.0) Lymphocytes (%) (Auto) % (20.0-45.0) Monocytes (%) (Auto) % (1.0-10.0) Eosinophils (%) (Auto) % (0.0-3.0) Basophils (%) (Auto) % (0.0-2.0) Differential Total Cells Counted 100 Neutrophils % (Manual) 60 % (45-75) Lymphocytes % (Manual) 24 % (20-45) Monocytes % (Manual) 7 % (1-10) Eosinophils % (Manual) 6 % (0-3) H Basophils % (Manual) 3 % (0-2) H Band Neutrophils 0 % (0-8) Platelet Estimate Decreased L Platelet Morphology Normal Hypochromasia 3+ Anisocytosis 1+ Spherocytes 2+ Coagulation Test 09/01/16 05:00 Prothrombin Time 10.4 SEC (9.30-11.50) Prothromb Time International Ratio 1.0 (0.9-1.1) Activated Partial Thromboplast Time 35 SEC (23-33) H Chemistry Test 09/01/16 05:00 Sodium Level 137 mEQ/L (135-145) Potassium Level 5.7 mEQ/L (3.4-4.9) H Chloride Level 94 mEQ/L (98-107) L Carbon Dioxide Level 22 mEQ/L (20-30) Anion Gap 21 (5-15) H Blood Urea Nitrogen 115 mg/dL (7-23) #H Creatinine 7.4 mg/dL (0.7-1.2) H Estimat Glomerular Filtration Rate 10.5 mL/min (>60) Glucose Level 86 mg/dL (74-106) Calcium Level 8.4 mg/dL (8.6-10.2) L Total Bilirubin 0.3 mg/dL (0.0-1.2) Gamma Glutamyl Transpeptidase 41 U/L (8-61) Aspartate Amino Transf (AST/SGOT) 14 U/L (5-40) Alanine Aminotransferase (ALT/SGPT) 5 U/L (3-41) Alkaline Phosphatase 2842 U/L (40-129) H Total Protein 5.6 g/dL (6.6-8.7) L Albumin 3.4 g/dL (3.5-5.2) L Globulin 2.2 g/dL Albumin/Globulin Ratio 1.5 (1.0-2.7) Studies Pre-op Studies: EKG - Sr Risk Assessment & Plan Plan: mac Status Change Before Surgery: No Pre-Antibiotics Drug: none FLY JIMENEZ CRNA Sep 01, 2016 13:29
--- NOTE | 2016-09-01 13:32 | 48 Hour Post Anesthesia Eval ---
Post Anesthesia Evaluation Procedure: EGD Date of Evaluation: Sep 01, 2016 Time of Evaluation: 13:31 Blood Pressure Systolic: 160 0: 70 Pulse Rate: 74 Respiratory Rate: 20 O2 Sat by Pulse Oximetry: 99 Airway: patent Nausea: No Vomiting: No Hydration Status: adequate Cardiopulmonary Status: stable Mental Status/LOC: patient returned to baseline Post-Anesthesia Complications: none Follow-up care needed: N/A FLY JIMENEZ CRNA Sep 01, 2016 13:32
[2016-09-01] MEDS: cefTRIAXone 1 GM in D5W 55 ML IVPB SCH (14:12)
[2016-09-01 14:15] LABS: OTHERS PATHOLOGIST COMMENT; PATH BLOOD SMEAR/OMC SENT TO PATHOLOGIST
--- NOTE | 2016-09-01 14:34 | Endoscopy Procedure Note ---
Endoscopy Procedure Note Indication for Procedure: gib Procedures Performed: EGD Operative Findings/Diagnosis: UGIB Specimen: yes Pt Tolerated Procedure Well: Yes Estimated Blood Loss: none Anesthesiologist: chetan Anesthesia: MAC Implant(s) used?: No 50 yrs or older w/o bx or poly: Not Applicable 10yrs. F/U not recommended: Not Applicable JEN VALDEZ Sep 01, 2016 14:34
[2016-09-01] MEDS ORDERED: Tubing Blood Filter IV ONE (16:45)
[2016-09-01] MEDS ORDERED: NS 275ml ONE (16:45)
[2016-09-01] MEDS: D5 1/2NS 1,000 ML IV SCH (18:11)
--- NOTE | 2016-09-01 18:53 | General Progress Note ---
Assessment/Plan Assessment/Plan 1. Pancytopenia especially secondary to underlying inflammatory process. At this time hold off on bone marrow biopsy due to ESRD and HD. --> monitor labs --> hgb goal above 7, transfuse prn # Anemia of GI bleed --> GI following, s/p egd 2. History of CVA. He had been on aspirin before. 3. End-stage renal disease. 4. Hemodialysis. Nephrology service management. 5. Chest pain, non-specific. 6. History of pericarditis. 7. HIV ordered. --> negative 8. Elevated CEA. Tumor marker elevated. 9. Uncontrolled hypertension --> bp seems to be better controlled with addition of Prazoin and Vasotec IV Subjective Constitutional: Reports: no symptoms HEENT: Reports: no symptoms Cardiovascular: Reports: no symptoms Respiratory: Reports: no symptoms Gastrointestinal/Abdominal: Reports: no symptoms Genitourinary: Reports: no symptoms Neurologic/Psychiatric: Reports: no symptoms Endocrine: Reports: no symptoms Hematologic/Lymphatic: Reports: anemia Allergies: Coded Allergies: PHENYTOIN SODIUM (Unverified Allergy, Intermediate, Hives, 12/01/11) PHENYTOIN SODIUM EXTENDED (Unverified Allergy, Intermediate, Hives, ) KETOROLAC (Verified Allergy, Mild, SOB, 06/28/11) METOCLOPRAMIDE (Verified Allergy, Mild, RASH, 06/28/11) NITROGLYCERIN (Verified Allergy, Mild, SEIZURES, 06/28/11) PENICILLINS (Verified Allergy, Mild, SOB, 06/28/11) PHENYTOIN (Verified Allergy, Mild, RASH, 06/28/11) ACETAMINOPHEN (Verified Allergy, Unknown, Shortness of Breath, 08/31/16) swelling throat, difficulty breathing HEPARIN (Verified Allergy, Unknown, Shortness of Breath, 08/28/16) HYDRALAZINE (Verified Allergy, Unknown, 08/28/16) HYDROCODONE (Verified Allergy, Unknown, Shortness of Breath, 08/31/16) swelling throat, difficulty breathing IBUPROFEN (Verified Allergy, Unknown, RASH, 06/28/11) IODINE (Verified Allergy, Unknown, SHOCK, 06/28/11) POLYSTYRENE SULFONATE (Verified Allergy, Unknown, RASH, 06/28/11) PROMETHAZINE (Verified Allergy, Unknown, RASH, 06/28/11) Subjective s/p egd, pt having coffee ground emesis Objective Last 24 Hour Vital Signs Date Time Temp Pulse Resp B/P Pulse Ox O2 Delivery O2 Flow Rate FiO2 09/01/16 16:00 97.1 108 20 165/89 91 Room Air 09/01/16 13:32 74 20 99 09/01/16 13:30 97.8 107 20 156/92 95 Room Air 108 09/01/16 13:24 97 14 98 09/01/16 13:20 105 20 156/84 95 Room Air 108 09/01/16 13:15 105 20 133/73 95 Room Air 108 09/01/16 13:10 97.8 108 20 160/79 95 Simple Mask 8.0 108 09/01/16 09:00 160/92 09/01/16 09:00 109 160/92 09/01/16 09:00 160/92 09/01/16 08:36 98.2 109 22 160/92 100 Room Air 09/01/16 04:18 97.2 105 20 157/100 100 Room Air 09/01/16 00:13 97.5 92 19 140/80 99 Room Air 08/31/16 21:47 74 157/101 08/31/16 20:22 96.8 74 18 157/101 100 Room Air Intake and Output 08/31/16 09/01/16 19:00 07:00 Intake Total 55 ml 400 ml Balance 55 ml 400 ml IV Total 55 ml 400 ml # Bowel Movements 2 Laboratory Tests 09/01/16 05:00: White Blood Count 5.0, Red Blood Count 2.54L, Hemoglobin 7.8L, Hematocrit 24.2L , Mean Corpuscular Volume 95, Mean Corpuscular Hemoglobin 30.6, Mean Corpuscular Hemoglobin Concent 32.3, Red Cell Distribution Width 16.3H, Platelet Count 107L, Mean Platelet Volume 6.6, Neutrophils (%) (Auto) , Lymphocytes (%) (Auto) , Monocytes (%) (Auto) , Eosinophils (%) (Auto) , Basophils (%) (Auto) , Differential Total Cells Counted 100, Neutrophils % ( Manual) 60, Lymphocytes % (Manual) 24, Monocytes % (Manual) 7, Eosinophils % ( Manual) 6H, Basophils % (Manual) 3H, Band Neutrophils 0, Platelet Estimate DecreasedL, Platelet Morphology Normal, Hypochromasia 3+, Anisocytosis 1+, Spherocytes 2+, Prothrombin Time 10.4, Prothromb Time International Ratio 1.0, Activated Partial Thromboplast Time 35H, Sodium Level 137, Potassium Level 5.7H , Chloride Level 94L, Carbon Dioxide Level 22, Anion Gap 21H, Blood Urea Nitrogen 115#H, Creatinine 7.4H, Estimat Glomerular Filtration Rate 10.5, Glucose Level 86, Calcium Level 8.4L, Total Bilirubin 0.3, Gamma Glutamyl Transpeptidase 41, Aspartate Amino Transf (AST/SGOT) 14, Alanine Aminotransferase (ALT/SGPT) 5, Alkaline Phosphatase 2842H, Total Protein 5.6L, Albumin 3.4L, Globulin 2.2, Albumin/Globulin Ratio 1.5, Hepatitis A IgM Antibody [Pending], Hepatitis B Surface Antigen [Pending], Hepatitis B Core IgM Antibody [Pending], Hepatitis C Antibody [Pending] Height (Feet): 5 Height (Inches): 10.00 Weight (Pounds): 135 General Appearance: alert EENT: PERRL/EOMI Neck: non-tender Cardiovascular: normal peripheral pulses Respiratory/Chest: lungs clear Extremities: non-tender Neurologic: no motor/sensory deficits Skin: warm/dry Chavo Alfaro Sep 01, 2016 18:53
--- NOTE | 2016-09-01 20:12 | Pulmonology Progress Note ---
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 abx for pericarditis Subjective ROS Limited/Unobtainable: No Interval Events: less vomiting blood Allergies: Coded Allergies: PHENYTOIN SODIUM (Unverified Allergy, Intermediate, Hives, 12/01/11) PHENYTOIN SODIUM EXTENDED (Unverified Allergy, Intermediate, Hives, ) KETOROLAC (Verified Allergy, Mild, SOB, 06/28/11) METOCLOPRAMIDE (Verified Allergy, Mild, RASH, 06/28/11) NITROGLYCERIN (Verified Allergy, Mild, SEIZURES, 06/28/11) PENICILLINS (Verified Allergy, Mild, SOB, 06/28/11) PHENYTOIN (Verified Allergy, Mild, RASH, 06/28/11) ACETAMINOPHEN (Verified Allergy, Unknown, Shortness of Breath, 08/31/16) swelling throat, difficulty breathing HEPARIN (Verified Allergy, Unknown, Shortness of Breath, 08/28/16) HYDRALAZINE (Verified Allergy, Unknown, 08/28/16) HYDROCODONE (Verified Allergy, Unknown, Shortness of Breath, 08/31/16) swelling throat, difficulty breathing IBUPROFEN (Verified Allergy, Unknown, RASH, 06/28/11) IODINE (Verified Allergy, Unknown, SHOCK, 06/28/11) POLYSTYRENE SULFONATE (Verified Allergy, Unknown, RASH, 06/28/11) PROMETHAZINE (Verified Allergy, Unknown, RASH, 06/28/11) Objective Last 24 Hour Vital Signs Date Time Temp Pulse Resp B/P Pulse Ox O2 Delivery O2 Flow Rate FiO2 09/01/16 16:00 97.1 108 20 165/89 91 Room Air 09/01/16 13:32 74 20 99 09/01/16 13:30 97.8 107 20 156/92 95 Room Air 108 09/01/16 13:24 97 14 98 09/01/16 13:20 105 20 156/84 95 Room Air 108 09/01/16 13:15 105 20 133/73 95 Room Air 108 09/01/16 13:10 97.8 108 20 160/79 95 Simple Mask 8.0 108 09/01/16 09:00 160/92 09/01/16 09:00 109 160/92 09/01/16 09:00 160/92 09/01/16 08:36 98.2 109 22 160/92 100 Room Air 09/01/16 04:18 97.2 105 20 157/100 100 Room Air 09/01/16 00:13 97.5 92 19 140/80 99 Room Air 08/31/16 21:47 74 157/101 08/31/16 20:22 96.8 74 18 157/101 100 Room Air Intake and Output 08/31/16 09/01/16 19:00 07:00 Intake Total 55 ml 400 ml Balance 55 ml 400 ml IV Total 55 ml 400 ml # Bowel Movements 2 Objective General Appearance: cachectic HEENT: normocephalic Respiratory/Chest: chest wall non-tender, lungs clear Breasts: no masses Cardiovascular: normal peripheral pulses Abdomen: normal bowel sounds, soft, non tender Genitourinary: normal external genitalia Skin: no rash General Appearance: cachetic Laboratory Tests 09/01/16 05:00: White Blood Count 5.0, Red Blood Count 2.54L, Hemoglobin 7.8L, Hematocrit 24.2L , Mean Corpuscular Volume 95, Mean Corpuscular Hemoglobin 30.6, Mean Corpuscular Hemoglobin Concent 32.3, Red Cell Distribution Width 16.3H, Platelet Count 107L, Mean Platelet Volume 6.6, Neutrophils (%) (Auto) , Lymphocytes (%) (Auto) , Monocytes (%) (Auto) , Eosinophils (%) (Auto) , Basophils (%) (Auto) , Differential Total Cells Counted 100, Neutrophils % ( Manual) 60, Lymphocytes % (Manual) 24, Monocytes % (Manual) 7, Eosinophils % ( Manual) 6H, Basophils % (Manual) 3H, Band Neutrophils 0, Platelet Estimate DecreasedL, Platelet Morphology Normal, Hypochromasia 3+, Anisocytosis 1+, Spherocytes 2+, Prothrombin Time 10.4, Prothromb Time International Ratio 1.0, Activated Partial Thromboplast Time 35H, Sodium Level 137, Potassium Level 5.7H , Chloride Level 94L, Carbon Dioxide Level 22, Anion Gap 21H, Blood Urea Nitrogen 115#H, Creatinine 7.4H, Estimat Glomerular Filtration Rate 10.5, Glucose Level 86, Calcium Level 8.4L, Total Bilirubin 0.3, Gamma Glutamyl Transpeptidase 41, Aspartate Amino Transf (AST/SGOT) 14, Alanine Aminotransferase (ALT/SGPT) 5, Alkaline Phosphatase 2842H, Total Protein 5.6L, Albumin 3.4L, Globulin 2.2, Albumin/Globulin Ratio 1.5, Hepatitis A IgM Antibody [Pending], Hepatitis B Surface Antigen [Pending], Hepatitis B Core IgM Antibody [Pending], Hepatitis C Antibody [Pending] Current Medications Medications (Trade) Dose Ordered Sig/Anant Route PRN Reason Start Time Stop Time Status Last Admin Dose Admin Acetaminophen (Tylenol) 650 mg Q4H PRN ORAL fever 08/31/16 18:04 09/30/16 18:03 Al Hydroxide/Mg Hydroxide (Mylanta II) 30 ml Q6H PRN ORAL dyspepsia 08/31/16 18:00 09/30/16 17:59 Ceftriaxone Sodium 1 gm/ Dextrose 55 ml @ 110 mls/hr Q24H IVPB 09/01/16 13:00 09/08/16 12:59 09/01/16 14:12 Chlorhexidine Gluconate (Yessi-Hex 2%) 1 applic DAILY TOPIC 08/31/16 21:00 09/30/16 20:59 09/01/16 08:08 Clonidine HCl (Catapres) 0.1 mg Q4H PRN ORAL For SBP> 170 08/31/16 18:05 09/30/16 18:04 Clonidine HCl (Catapres) 0.2 mg DAILY ORAL 09/01/16 09:00 10/01/16 08:59 Dextrose (Dextrose 50%) STAT PRN IV Hypoglycemia 08/31/16 18:05 09/30/16 18:04 Dextrose/Sodium Chloride (D5 0.45% NS) 1,000 ml @ 50 mls/hr Q20H IV 08/31/16 22:15 09/30/16 22:14 08/31/16 22:12 Diphenhydramine HCl (Benadryl) 25 mg Q6H PRN IVP Itching 08/31/16 18:06 09/30/16 18:05 09/01/16 18:11 Divalproex Sodium (Depakote) 250 mg Q12HR ORAL 08/31/16 21:00 09/30/16 20:59 Enalaprilat (Vasotec) 2.5 mg Q4H PRN IV SBP > 160 08/31/16 18:06 09/30/16 18:05 Epoetin Rajinder (Procrit (for ESRD on dialysis)) 10,000 units SUN-SUN-SUN SUBQ 09/01/16 21:00 10/01/16 20:59 Heparin Sodium (Porcine) (Heparin Sod 1000 units/ml 10ml) 2,000 unit ONCE IV 08/31/16 17:45 09/01/16 23:59 Labetalol HCl (Normodyne) 300 mg Q12HR ORAL 08/31/16 21:00 09/30/16 20:59 08/31/16 21:47 Levetiracetam (Keppra) 1,000 mg Q12HR ORAL 08/31/16 21:00 09/30/16 20:59 08/31/16 20:36 Lisinopril (Zestril) 10 mg DAILY ORAL 09/01/16 09:00 10/01/16 08:59 Lorazepam (Ativan 2mg/ml 1ml) 0.5 mg Q4H PRN IV For Anxiety 08/31/16 18:15 09/07/16 18:14 Morphine Sulfate (Morphine Sulfate) 4 mg Q3H PRN IVP For Severe Pain 08/31/16 18:00 09/07/16 17:59 09/01/16 18:11 Ondansetron HCl (Zofran) 4 mg Q6H PRN IVP Nausea & Vomiting 08/31/16 18:13 09/30/16 18:12 09/01/16 09:46 Pantoprazole (Protonix) 40 mg DAILY IVP 09/01/16 09:00 10/01/16 08:59 09/01/16 08:08 Polyethylene Glycol (Miralax) 17 gm HSPRN PRN ORAL Constipation 08/31/16 18:13 09/30/16 18:12 Sodium Chloride (Sodium Chloride 1000ml bag) 1,000 ml @ 500 mls/hr Q2H PRN IVLG sbp<90 during hd 08/31/16 18:04 09/01/16 23:59 Vancomycin HCl (Vanco rx to dose) 1 ea DAILY PRN MISC Per rx protocol 08/31/16 18:14 09/30/16 18:13 Zolpidem Tartrate 5 mg 5 mg HSPRN PRN ORAL Insomnia 08/31/16 20:30 09/30/16 20:29 BETHEL PACK Sep 01, 2016 20:12
[2016-09-01] MEDS: Epogen (for ESRD on dialysis) SUBQ SCH (22:17)
[2016-09-02] VITALS (9 sets, daily range): BP systolic 108–134; BP diastolic 60–84
--- NOTE | 2016-09-02 00:32 | Procedure Note ---
DATE OF PROCEDURE: 09/01/2016 PROCEDURE: Upper endoscopy with biopsy and hemostasis. SURGEON: Alec Sandoval M.D. ANESTHESIA: Per Debbie CEBALLOS. INSTRUMENT: Olympus adult flexible upper endoscope. INDICATION: Upper GI bleeding. REASON FOR PROCEDURE: The procedure, risks, benefits, and possible consequences, including hemorrhage, aspiration, perforation and infection, and alternative treatments, were explained to the patient/legal guardian by Dr. Alec Sandoval and the patient/legal guardian understood and accepted these risks. DESCRIPTION OF PROCEDURE: After informed consent was obtained and the patient was adequately sedated, Olympus upper endoscope was advanced mouth into the esophagus. Esophagus was mildly dilated, looks like sigmoid suggestive possibly esophageal motility disorder. With regard to the GE junction, there was evidence of medium-sized hiatal hernia. No evidence of any esophagitis. In the stomach, there was some greenish fluid which we aspirated about 100 mL to 120 mL. We could not actually pass the scope into the second portion of duodenum for two reasons, one is the patient was not very stable and not tolerating and also there was a sharp bend in that pre-pyloric region which we could not get a chance to pass. The patient had an unusual looking lesion in the mid stomach roughly at the junction between the body and antrum. The way it was described it looks like a branch of the tree coming out of the lumen and there was some blood clot sitting on it. The differential diagnosis would be an ulcer bed with clot sitting on it which will be unlikely versus an inflammatory lesion versus a foreign body versus inflammatory polyp. At this time, we injected the base of this lesion with about 3 mL of 1:10,000 dilution epinephrine. We opened a clip to see if we can clip but the base was too big for the clip to grab all sites and clipping at this time will be helpful. Then using biopsy forceps we removed part of this lesion and sent it to Pathology for evaluation. At this time, procedure was terminated. SUMMARY OF FINDINGS: It is a difficult case, the patient was not tolerating endoscopy very well. The patient had evidence of hiatal hernia, evidence of a lesion in the midbody, see above for details which was biopsied and hemostasis was performed on it. RECOMMENDATIONS: At this time, the patient to be kept on clear liquid diet. Hemoglobin and hematocrit to be monitored closely and transfuse as needed. Follow biopsy results, see what this lesion was in the stomach, if it rebleeds most probably would need a major hemostasis including and possibly close this. I want to thank Dr. Hayward, for this kind referral. Alec Sandoval M.D. DR: Mony JOB#: [id number] CC: Kaylah Hayward M.D.; Fax#: [phone]
[2016-09-02] MEDS: DiphenhydrAMINE 50mg/ml Inj IVP PRN ×4 (00:57→20:31)
[2016-09-02] MEDS: Morphine Sulfate 4mg/ml Inj IVP PRN ×7 (00:57→20:32)
[2016-09-02 07:37] LABS: MEAN CORPUSCULAR HEMOGLOBIN 31.8 PG (27.0-31.0); MEAN CORPUSCULAR HGB CONC 33.3 G/DL (32.0-36.0); MEAN CORPUSCULAR VOLUME 96 FL (80-99); MEAN PLATELET VOLUME 7.2 FL (6.5-10.1); PLATELET COUNT 98 K/UL (150-450); RED BLOOD COUNT 2.73 M/UL (4.70-6.10); RED CELL DISTRIBUTION WIDTH 16.3 % (11.6-14.8)
[2016-09-02 08:00] LABS: ALBUMIN/GLOBULIN RATIO 1.5 (1.0-2.7); CALCIUM 8.9 mg/dL (8.6-10.2); CREATININE 5.3 mg/dL (0.7-1.2); GLOMERULAR FILTRATION RATE 15.5 mL/min (>60); POTASSIUM 4.6 mEQ/L (3.4-4.9); TOTAL PROTEIN 5.7 g/dL (6.6-8.7)
[2016-09-02] MEDS: Pantoprazole Inj IVP SCH (08:14)
[2016-09-02] MEDS: Dyna-Hex 2% Top Sol 8oz TOPIC SCH (08:14)
[2016-09-02] MEDS: Lisinopril 10mg tab ORAL SCH (08:19)
[2016-09-02] MEDS: cloNIDine 0.2mg Tab ORAL SCH (08:19)
[2016-09-02 10:19] LABS: BAND NEUTROPHILS % (MANUAL) 2 % (0-8); BASOPHILS % (MANUAL) 0 % (0-2); EOSINOPHILS % (MANUAL) 2 % (0-3); LYMPHOCYTES % (MANUAL) 9 % (20-45); NEUTROPHILS % (MANUAL) 86 % (45-75); PLATELET ESTIMATE DECREASED; PLATELET MORPHOLOGY NORMAL; TOTAL CELLS COUNTED 100
[2016-09-02] MEDS: cefTRIAXone 1 GM in D5W 55 ML IVPB SCH (12:12)
--- NOTE | 2016-09-02 13:26 | Nephrology Progress Note ---
Assessment/Plan Plan Had HD -yesterday. Post EGD h/o Uremic Gastritis. Total 5 units PRBCs transfused. Subjective Subjective Has [place] Emesis - had it before multiple times. Objective Objective Last 24 Hour Vital Signs Date Time Temp Pulse Resp B/P Pulse Ox O2 Delivery O2 Flow Rate FiO2 09/02/16 10:26 97.9 09/02/16 08:56 97.9 114 20 128/82 95 Room Air 09/02/16 08:19 130/66 09/02/16 08:19 130/66 09/02/16 08:18 104 130/66 09/02/16 04:42 98.2 104 18 126/64 98 Room Air 09/02/16 04:00 97.5 105 20 118/65 96 Room Air 09/02/16 01:55 98.4 103 18 108/71 98 Room Air 09/02/16 00:57 98.1 104 20 128/77 96 Room Air 09/02/16 00:00 98.2 110 20 118/60 95 Room Air 09/01/16 21:34 103 09/01/16 20:00 98.6 115 22 114/55 94 Room Air 09/01/16 16:00 97.1 108 20 165/89 91 Room Air 09/01/16 13:32 74 20 99 09/01/16 13:30 97.8 107 20 156/92 95 Room Air 108 Intake and Output 09/01/16 09/02/16 19:00 07:00 Intake Total 455 ml 200 ml Balance 455 ml 200 ml IV Total 455 ml 200 ml # Voids 1 Laboratory Tests 09/02/16 05:50: White Blood Count 5.0, Red Blood Count 2.73L, Hemoglobin 8.7L, Hematocrit 26.1L , Mean Corpuscular Volume 96, Mean Corpuscular Hemoglobin 31.8H, Mean Corpuscular Hemoglobin Concent 33.3, Red Cell Distribution Width 16.3H, Platelet Count 98L, Mean Platelet Volume 7.2, Neutrophils (%) (Auto) , Lymphocytes (%) (Auto) , Monocytes (%) (Auto) , Eosinophils (%) (Auto) , Basophils (%) (Auto) , Differential Total Cells Counted 100, Neutrophils % ( Manual) 86H, Lymphocytes % (Manual) 9L, Monocytes % (Manual) 1, Eosinophils % ( Manual) 2, Basophils % (Manual) 0, Band Neutrophils 2, Platelet Estimate DecreasedL, Platelet Morphology Normal, Red Blood Cell Morphology Normal, Sodium Level 135, Potassium Level 4.6, Chloride Level 93L, Carbon Dioxide Level 25, Anion Gap 17H, Blood Urea Nitrogen 76#H, Creatinine 5.3H, Estimat Glomerular Filtration Rate 15.5, Glucose Level 82, Calcium Level 8.9, Total Bilirubin 0.3, Aspartate Amino Transf (AST/SGOT) 16, Alanine Aminotransferase ( ALT/SGPT) 5, Alkaline Phosphatase 2754H, Total Protein 5.7L, Albumin 3.5, Globulin 2.2, Albumin/Globulin Ratio 1.5 Height (Feet): 5 Height (Inches): 10.00 Weight (Pounds): 135 Objective Cachechtic Neck supple. Lungs CTA CV RR Abd SNT. BS + E CAPRICE AVF + bruit. ARNIE SWEET Sep 02, 2016 13:26
[2016-09-02] MEDS ORDERED: Tubing Blood Filter IV ONE (16:35)
[2016-09-02] MEDS ORDERED: D5 1/2NS 1000ml IV ONE (16:35)
--- NOTE | 2016-09-02 16:39 | Pulmonology Progress Note ---
Assessment/Plan Problems: (1) Uncontrolled hypertension (2) Pericarditis (3) Chest pain (4) Anemia (5) Pancytopenia (6) ESRF (end stage renal failure) (7) Left hemiplegia (8) History of CVA (cerebrovascular accident) Assessment/Plan h/h stable bp is better check cultures HD by nephrology snf abx for pericarditis dc planning Subjective ROS Limited/Unobtainable: No Constitutional: Reports: no symptoms HEENT: Repors: no symptoms Respiratory: Reports: no symptoms Cardiovascular: Reports: no symptoms Allergies: Coded Allergies: PHENYTOIN SODIUM (Unverified Allergy, Intermediate, Hives, 12/01/11) PHENYTOIN SODIUM EXTENDED (Unverified Allergy, Intermediate, Hives, ) KETOROLAC (Verified Allergy, Mild, SOB, 06/28/11) METOCLOPRAMIDE (Verified Allergy, Mild, RASH, 06/28/11) NITROGLYCERIN (Verified Allergy, Mild, SEIZURES, 06/28/11) PENICILLINS (Verified Allergy, Mild, SOB, 06/28/11) PHENYTOIN (Verified Allergy, Mild, RASH, 06/28/11) ACETAMINOPHEN (Verified Allergy, Unknown, Shortness of Breath, 08/31/16) swelling throat, difficulty breathing HEPARIN (Verified Allergy, Unknown, Shortness of Breath, 08/28/16) HYDRALAZINE (Verified Allergy, Unknown, 08/28/16) HYDROCODONE (Verified Allergy, Unknown, Shortness of Breath, 08/31/16) swelling throat, difficulty breathing IBUPROFEN (Verified Allergy, Unknown, RASH, 06/28/11) IODINE (Verified Allergy, Unknown, SHOCK, 06/28/11) POLYSTYRENE SULFONATE (Verified Allergy, Unknown, RASH, 06/28/11) PROMETHAZINE (Verified Allergy, Unknown, RASH, 06/28/11) Objective Last 24 Hour Vital Signs Date Time Temp Pulse Resp B/P Pulse Ox O2 Delivery O2 Flow Rate FiO2 09/02/16 13:20 97.9 09/02/16 12:35 98.8 112 20 119/74 97 Room Air 09/02/16 08:56 97.9 114 20 128/82 95 Room Air 09/02/16 08:19 130/66 09/02/16 08:19 130/66 09/02/16 08:18 104 130/66 09/02/16 04:42 98.2 104 18 126/64 98 Room Air 09/02/16 04:00 97.5 105 20 118/65 96 Room Air 09/02/16 01:55 98.4 103 18 108/71 98 Room Air 09/02/16 00:57 98.1 104 20 128/77 96 Room Air 09/02/16 00:00 98.2 110 20 118/60 95 Room Air 09/01/16 21:34 103 09/01/16 20:00 98.6 115 22 114/55 94 Room Air Intake and Output 09/01/16 09/02/16 19:00 07:00 Intake Total 455 ml 200 ml Balance 455 ml 200 ml IV Total 455 ml 200 ml # Voids 1 Objective General Appearance: cachectic HEENT: normocephalic Respiratory/Chest: chest wall non-tender, lungs clear Breasts: no masses Cardiovascular: normal peripheral pulses Abdomen: normal bowel sounds, soft, non tender Genitourinary: normal external genitalia Skin: no rash Laboratory Tests 09/02/16 05:50: White Blood Count 5.0, Red Blood Count 2.73L, Hemoglobin 8.7L, Hematocrit 26.1L , Mean Corpuscular Volume 96, Mean Corpuscular Hemoglobin 31.8H, Mean Corpuscular Hemoglobin Concent 33.3, Red Cell Distribution Width 16.3H, Platelet Count 98L, Mean Platelet Volume 7.2, Neutrophils (%) (Auto) , Lymphocytes (%) (Auto) , Monocytes (%) (Auto) , Eosinophils (%) (Auto) , Basophils (%) (Auto) , Differential Total Cells Counted 100, Neutrophils % ( Manual) 86H, Lymphocytes % (Manual) 9L, Monocytes % (Manual) 1, Eosinophils % ( Manual) 2, Basophils % (Manual) 0, Band Neutrophils 2, Platelet Estimate DecreasedL, Platelet Morphology Normal, Red Blood Cell Morphology Normal, Sodium Level 135, Potassium Level 4.6, Chloride Level 93L, Carbon Dioxide Level 25, Anion Gap 17H, Blood Urea Nitrogen 76#H, Creatinine 5.3H, Estimat Glomerular Filtration Rate 15.5, Glucose Level 82, Calcium Level 8.9, Total Bilirubin 0.3, Aspartate Amino Transf (AST/SGOT) 16, Alanine Aminotransferase ( ALT/SGPT) 5, Alkaline Phosphatase 2754H, Total Protein 5.7L, Albumin 3.5, Globulin 2.2, Albumin/Globulin Ratio 1.5 Current Medications Medications (Trade) Dose Ordered Sig/Anant Route PRN Reason Start Time Stop Time Status Last Admin Dose Admin Acetaminophen (Tylenol) 650 mg Q4H PRN ORAL fever 08/31/16 18:04 09/30/16 18:03 Al Hydroxide/Mg Hydroxide (Mylanta II) 30 ml Q6H PRN ORAL dyspepsia 08/31/16 18:00 09/30/16 17:59 Ceftriaxone Sodium/Dextrose (Rocephin/D5W) 55 ml @ 110 mls/hr Q24H IVPB 09/01/16 13:00 09/08/16 12:59 09/02/16 12:12 Chlorhexidine Gluconate (Yessi-Hex 2%) 1 applic DAILY TOPIC 08/31/16 21:00 09/30/16 20:59 09/02/16 08:14 Clonidine HCl (Catapres) 0.1 mg Q4H PRN ORAL For SBP> 170 08/31/16 18:05 09/30/16 18:04 Clonidine HCl (Catapres) 0.2 mg DAILY ORAL 09/01/16 09:00 10/01/16 08:59 09/02/16 08:19 Dextrose (Dextrose 50%) STAT PRN IV Hypoglycemia 08/31/16 18:05 09/30/16 18:04 Diphenhydramine HCl (Benadryl) 25 mg Q6H PRN IVP Itching 08/31/16 18:06 09/30/16 18:05 09/02/16 12:50 Divalproex Sodium (Depakote) 250 mg Q12HR ORAL 08/31/16 21:00 09/30/16 20:59 09/02/16 08:19 Enalaprilat (Vasotec) 2.5 mg Q4H PRN IV SBP > 160 08/31/16 18:06 09/30/16 18:05 Epoetin Rajinder (Procrit (for ESRD on dialysis)) 10,000 units SUN-WED-SUN SUBQ 09/01/16 21:00 10/01/16 20:59 09/01/16 22:17 Labetalol HCl (Normodyne) 300 mg Q12HR ORAL 08/31/16 21:00 09/30/16 20:59 09/02/16 08:18 Levetiracetam (Keppra) 1,000 mg Q12HR ORAL 08/31/16 21:00 09/30/16 20:59 09/02/16 08:18 Lisinopril (Zestril) 10 mg DAILY ORAL 09/01/16 09:00 10/01/16 08:59 09/02/16 08:19 Lorazepam (Ativan 2mg/ml 1ml) 0.5 mg Q4H PRN IV For Anxiety 08/31/16 18:15 09/07/16 18:14 Morphine Sulfate (Morphine Sulfate) 4 mg Q3H PRN IVP For Severe Pain 08/31/16 18:00 09/07/16 17:59 09/02/16 16:21 Ondansetron HCl (Zofran) 4 mg Q6H PRN IVP Nausea & Vomiting 08/31/16 18:13 09/30/16 18:12 09/02/16 16:22 Pantoprazole (Protonix) 40 mg DAILY IVP 09/01/16 09:00 10/01/16 08:59 09/02/16 08:14 Polyethylene Glycol (Miralax) 17 gm HSPRN PRN ORAL Constipation 08/31/16 18:13 09/30/16 18:12 Vancomycin HCl (Vanco rx to dose) 1 ea DAILY PRN MISC Per rx protocol 08/31/16 18:14 09/30/16 18:13 Zolpidem Tartrate (Ambien) 5 mg HSPRN PRN ORAL Insomnia 08/31/16 20:30 09/30/16 20:29 BETHEL PACK Sep 02, 2016 16:39
--- NOTE | 2016-09-02 20:31 | General Progress Note ---
Assessment/Plan Assessment/Plan Assessment - N/V - UGIB - HH - Midbody gastric lesion, biopsied - contractures - Anemia - Renal failure Recommendations - follow H&H - PPI - Elevate HOB Subjective Allergies: Coded Allergies: PHENYTOIN SODIUM (Unverified Allergy, Intermediate, Hives, 12/01/11) PHENYTOIN SODIUM EXTENDED (Unverified Allergy, Intermediate, Hives, ) KETOROLAC (Verified Allergy, Mild, SOB, 06/28/11) METOCLOPRAMIDE (Verified Allergy, Mild, RASH, 06/28/11) NITROGLYCERIN (Verified Allergy, Mild, SEIZURES, 06/28/11) PENICILLINS (Verified Allergy, Mild, SOB, 06/28/11) PHENYTOIN (Verified Allergy, Mild, RASH, 06/28/11) ACETAMINOPHEN (Verified Allergy, Unknown, Shortness of Breath, 08/31/16) swelling throat, difficulty breathing HEPARIN (Verified Allergy, Unknown, Shortness of Breath, 08/28/16) HYDRALAZINE (Verified Allergy, Unknown, 08/28/16) HYDROCODONE (Verified Allergy, Unknown, Shortness of Breath, 08/31/16) swelling throat, difficulty breathing IBUPROFEN (Verified Allergy, Unknown, RASH, 06/28/11) IODINE (Verified Allergy, Unknown, SHOCK, 06/28/11) POLYSTYRENE SULFONATE (Verified Allergy, Unknown, RASH, 06/28/11) PROMETHAZINE (Verified Allergy, Unknown, RASH, 06/28/11) Objective Last 24 Hour Vital Signs Date Time Temp Pulse Resp B/P Pulse Ox O2 Delivery O2 Flow Rate FiO2 09/02/16 20:03 97.7 107 18 121/84 Room Air 09/02/16 16:51 97.0 09/02/16 16:35 97.0 106 20 134/73 95 Room Air 09/02/16 12:35 98.8 112 20 119/74 97 Room Air 09/02/16 08:56 97.9 114 20 128/82 95 Room Air 09/02/16 08:19 130/66 09/02/16 08:19 130/66 09/02/16 08:18 104 130/66 09/02/16 04:42 98.2 104 18 126/64 98 Room Air 09/02/16 04:00 97.5 105 20 118/65 96 Room Air 09/02/16 01:55 98.4 103 18 108/71 98 Room Air 09/02/16 00:57 98.1 104 20 128/77 96 Room Air 09/02/16 00:00 98.2 110 20 118/60 95 Room Air 09/01/16 21:34 103 Intake and Output 09/01/16 09/02/16 19:00 07:00 Intake Total 455 ml 200 ml Balance 455 ml 200 ml IV Total 455 ml 200 ml # Voids 1 Laboratory Tests 09/02/16 05:50: White Blood Count 5.0, Red Blood Count 2.73L, Hemoglobin 8.7L, Hematocrit 26.1L , Mean Corpuscular Volume 96, Mean Corpuscular Hemoglobin 31.8H, Mean Corpuscular Hemoglobin Concent 33.3, Red Cell Distribution Width 16.3H, Platelet Count 98L, Mean Platelet Volume 7.2, Neutrophils (%) (Auto) , Lymphocytes (%) (Auto) , Monocytes (%) (Auto) , Eosinophils (%) (Auto) , Basophils (%) (Auto) , Differential Total Cells Counted 100, Neutrophils % ( Manual) 86H, Lymphocytes % (Manual) 9L, Monocytes % (Manual) 1, Eosinophils % ( Manual) 2, Basophils % (Manual) 0, Band Neutrophils 2, Platelet Estimate DecreasedL, Platelet Morphology Normal, Red Blood Cell Morphology Normal, Sodium Level 135, Potassium Level 4.6, Chloride Level 93L, Carbon Dioxide Level 25, Anion Gap 17H, Blood Urea Nitrogen 76#H, Creatinine 5.3H, Estimat Glomerular Filtration Rate 15.5, Glucose Level 82, Calcium Level 8.9, Total Bilirubin 0.3, Aspartate Amino Transf (AST/SGOT) 16, Alanine Aminotransferase ( ALT/SGPT) 5, Alkaline Phosphatase 2754H, Total Protein 5.7L, Albumin 3.5, Globulin 2.2, Albumin/Globulin Ratio 1.5 Height (Feet): 5 Height (Inches): 10.00 Weight (Pounds): 135 Objective Debilitated AA man in bed NCAT supple CTA RRR soft flat abd no edema BENJIE MARTELL Sep 02, 2016 20:31
[2016-09-03] VITALS: BP 134/78
[2016-09-03] MEDS: Morphine Sulfate 4mg/ml Inj IVP PRN ×7 (00:30→22:01)
[2016-09-03] MEDS: DiphenhydrAMINE 50mg/ml Inj IVP PRN ×3 (02:41→18:48)
[2016-09-03 04:00] VITALS: BP 101/55
[2016-09-03] MEDS ORDERED: NS 275ml ONE (08:14)
[2016-09-03] MEDS: Dyna-Hex 2% Top Sol 8oz TOPIC SCH (08:23)
[2016-09-03 08:24] VITALS: BP 114/71
[2016-09-03] MEDS: Pantoprazole Inj IVP SCH (08:28)
[2016-09-03] MEDS: cloNIDine 0.2mg Tab ORAL SCH (08:28)
[2016-09-03] MEDS: Lisinopril 10mg tab ORAL SCH (08:29)
--- NOTE | 2016-09-03 11:41 | General Progress Note ---
Assessment/Plan Assessment/Plan 1. Pancytopenia especially secondary to underlying inflammatory process. At this time hold off on bone marrow biopsy due to ESRD and HD. --> monitor labs --> hgb goal above 7, transfuse prn # Anemia of GI bleed --> GI following, s/p egd and biospy of gastric lesion 2. History of CVA. He had been on aspirin before. 3. End-stage renal disease. 4. Hemodialysis. Nephrology service management. 5. Chest pain, non-specific. 6. History of pericarditis. --> on custodial abx 7. HIV and Hepatitis panels ordered. --> both are negative 8. Elevated CEA. Tumor marker elevated. 9. Uncontrolled hypertension --> bp seems to be better controlled with addition of Prazoin and Vasotec IV Subjective Date patient seen: Sep 02, 2016 Constitutional: Reports: no symptoms HEENT: Reports: no symptoms Cardiovascular: Reports: no symptoms Respiratory: Reports: no symptoms Gastrointestinal/Abdominal: Reports: no symptoms Genitourinary: Reports: no symptoms Neurologic/Psychiatric: Reports: no symptoms Endocrine: Reports: no symptoms Hematologic/Lymphatic: Reports: anemia Allergies: Coded Allergies: PHENYTOIN SODIUM (Unverified Allergy, Intermediate, Hives, 12/01/11) PHENYTOIN SODIUM EXTENDED (Unverified Allergy, Intermediate, Hives, ) KETOROLAC (Verified Allergy, Mild, SOB, 06/28/11) METOCLOPRAMIDE (Verified Allergy, Mild, RASH, 06/28/11) NITROGLYCERIN (Verified Allergy, Mild, SEIZURES, 06/28/11) PENICILLINS (Verified Allergy, Mild, SOB, 06/28/11) PHENYTOIN (Verified Allergy, Mild, RASH, 06/28/11) ACETAMINOPHEN (Verified Allergy, Unknown, Shortness of Breath, 08/31/16) swelling throat, difficulty breathing HEPARIN (Verified Allergy, Unknown, Shortness of Breath, 08/28/16) HYDRALAZINE (Verified Allergy, Unknown, 08/28/16) HYDROCODONE (Verified Allergy, Unknown, Shortness of Breath, 08/31/16) swelling throat, difficulty breathing IBUPROFEN (Verified Allergy, Unknown, RASH, 06/28/11) IODINE (Verified Allergy, Unknown, SHOCK, 06/28/11) POLYSTYRENE SULFONATE (Verified Allergy, Unknown, RASH, 06/28/11) PROMETHAZINE (Verified Allergy, Unknown, RASH, 06/28/11) Subjective pt continues to have coffee ground emesis, also complains of total body pain Objective Last 24 Hour Vital Signs Date Time Temp Pulse Resp B/P Pulse Ox O2 Delivery O2 Flow Rate FiO2 09/03/16 08:57 98.1 09/03/16 08:29 114/71 09/03/16 08:28 112 114/71 09/03/16 08:28 114/71 09/03/16 08:24 98.1 112 20 114/71 100 Room Air 09/03/16 04:00 98.8 110 20 101/55 100 09/03/16 00:00 97.9 98 20 134/78 98 Room Air 09/02/16 20:31 107 121/84 09/02/16 20:03 97.7 107 18 121/84 Room Air 09/02/16 16:35 97.0 106 20 134/73 95 Room Air 09/02/16 12:35 98.8 112 20 119/74 97 Room Air Intake and Output 09/02/16 09/03/16 19:00 07:00 Intake Total 120 ml 800 ml Balance 120 ml 800 ml Intake Oral 120 ml 800 ml Laboratory Tests 09/03/16 04:00: Vancomycin Level Trough 25.0H Height (Feet): 5 Height (Inches): 10.00 Weight (Pounds): 135 General Appearance: no apparent distress EENT: PERRL/EOMI Neck: non-tender Cardiovascular: normal peripheral pulses Respiratory/Chest: chest wall non-tender Abdomen: soft Neurologic: step finisher II-XII grossly normal Skin: warm/dry Chavo Alfaro Sep 03, 2016 11:41
[2016-09-03 11:46] VITALS: BP 98/67
[2016-09-03] MEDS: cefTRIAXone 1 GM in D5W 55 ML IVPB SCH (12:17)
--- NOTE | 2016-09-03 12:45 | Nephrology Progress Note ---
Assessment/Plan Plan Post EGD h/o Uremic Gastritis. Total 5 units PRBCs transfused. HD tomorrow. Subjective Subjective No new c/o Objective Objective Last 24 Hour Vital Signs Date Time Temp Pulse Resp B/P Pulse Ox O2 Delivery O2 Flow Rate FiO2 09/03/16 11:46 98.0 111 20 98/67 98 Room Air 09/03/16 08:57 98.1 09/03/16 08:29 114/71 09/03/16 08:28 112 114/71 09/03/16 08:28 114/71 09/03/16 08:24 98.1 112 20 114/71 100 Room Air 09/03/16 04:00 98.8 110 20 101/55 100 09/03/16 00:00 97.9 98 20 134/78 98 Room Air 09/02/16 20:31 107 121/84 09/02/16 20:03 97.7 107 18 121/84 Room Air 09/02/16 16:35 97.0 106 20 134/73 95 Room Air Intake and Output 09/02/16 09/03/16 19:00 07:00 Intake Total 120 ml 800 ml Balance 120 ml 800 ml Intake Oral 120 ml 800 ml Laboratory Tests 09/03/16 04:00: Vancomycin Level Trough 25.0H Height (Feet): 5 Height (Inches): 10.00 Weight (Pounds): 135 Objective Cachechtic Neck supple. Lungs CTA CV RR Abd SNT. BS + E CAPRICE AVF + bruit. ARNIE SWEET Sep 03, 2016 12:45
--- NOTE | 2016-09-03 14:50 | Pulmonology Progress Note ---
Assessment/Plan Problems: (1) Uncontrolled hypertension (2) Pericarditis (3) Chest pain (4) Anemia (5) Pancytopenia (6) ESRF (end stage renal failure) (7) Left hemiplegia (8) History of CVA (cerebrovascular accident) Assessment/Plan still has hematemesis check h/h bp is low now..... 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 for pericarditis Premarin to help with uremic gastritis causing hematemesis Subjective ROS Limited/Unobtainable: No Constitutional: Reports: no symptoms HEENT: Repors: no symptoms Respiratory: Reports: no symptoms Cardiovascular: Reports: no symptoms Allergies: Coded Allergies: PHENYTOIN SODIUM (Unverified Allergy, Intermediate, Hives, 12/01/11) PHENYTOIN SODIUM EXTENDED (Unverified Allergy, Intermediate, Hives, ) KETOROLAC (Verified Allergy, Mild, SOB, 06/28/11) METOCLOPRAMIDE (Verified Allergy, Mild, RASH, 06/28/11) NITROGLYCERIN (Verified Allergy, Mild, SEIZURES, 06/28/11) PENICILLINS (Verified Allergy, Mild, SOB, 06/28/11) PHENYTOIN (Verified Allergy, Mild, RASH, 06/28/11) ACETAMINOPHEN (Verified Allergy, Unknown, Shortness of Breath, 08/31/16) swelling throat, difficulty breathing HEPARIN (Verified Allergy, Unknown, Shortness of Breath, 08/28/16) HYDRALAZINE (Verified Allergy, Unknown, 08/28/16) HYDROCODONE (Verified Allergy, Unknown, Shortness of Breath, 08/31/16) swelling throat, difficulty breathing IBUPROFEN (Verified Allergy, Unknown, RASH, 06/28/11) IODINE (Verified Allergy, Unknown, SHOCK, 06/28/11) POLYSTYRENE SULFONATE (Verified Allergy, Unknown, RASH, 06/28/11) PROMETHAZINE (Verified Allergy, Unknown, RASH, 06/28/11) Objective Last 24 Hour Vital Signs Date Time Temp Pulse Resp B/P Pulse Ox O2 Delivery O2 Flow Rate FiO2 09/03/16 12:47 98.0 09/03/16 11:46 98.0 111 20 98/67 98 Room Air 09/03/16 08:29 114/71 09/03/16 08:28 112 114/71 09/03/16 08:28 114/71 09/03/16 08:24 98.1 112 20 114/71 100 Room Air 09/03/16 04:00 98.8 110 20 101/55 100 09/03/16 00:00 97.9 98 20 134/78 98 Room Air 09/02/16 20:31 107 121/84 09/02/16 20:03 97.7 107 18 121/84 Room Air 09/02/16 16:35 97.0 106 20 134/73 95 Room Air Intake and Output 09/02/16 09/03/16 19:00 07:00 Intake Total 120 ml 800 ml Balance 120 ml 800 ml Intake Oral 120 ml 800 ml Objective General Appearance: cachectic HEENT: normocephalic Respiratory/Chest: chest wall non-tender, lungs clear Breasts: no masses Cardiovascular: normal peripheral pulses Abdomen: normal bowel sounds, soft, non tender Genitourinary: normal external genitalia Skin: no rash Laboratory Tests 09/03/16 04:00: Vancomycin Level Trough 25.0H Current Medications Medications (Trade) Dose Ordered Sig/Anant Route PRN Reason Start Time Stop Time Status Last Admin Dose Admin Acetaminophen (Tylenol) 650 mg Q4H PRN ORAL fever 08/31/16 18:04 09/30/16 18:03 Al Hydroxide/Mg Hydroxide (Mylanta II) 30 ml Q6H PRN ORAL dyspepsia 08/31/16 18:00 09/30/16 17:59 Ceftriaxone Sodium/Dextrose (Rocephin/D5W) 55 ml @ 110 mls/hr Q24H IVPB 09/01/16 13:00 09/08/16 12:59 09/03/16 12:17 Chlorhexidine Gluconate (Yessi-Hex 2%) 1 applic DAILY TOPIC 08/31/16 21:00 09/30/16 20:59 09/03/16 08:23 Clonidine HCl (Catapres) 0.1 mg Q4H PRN ORAL For SBP> 170 08/31/16 18:05 09/30/16 18:04 Clonidine HCl (Catapres) 0.2 mg DAILY ORAL 09/01/16 09:00 10/01/16 08:59 09/02/16 08:19 Dextrose (Dextrose 50%) STAT PRN IV Hypoglycemia 08/31/16 18:05 09/30/16 18:04 Diphenhydramine HCl (Benadryl) 25 mg Q6H PRN IVP Itching 08/31/16 18:06 09/30/16 18:05 09/03/16 10:20 Divalproex Sodium (Depakote) 250 mg Q12HR ORAL 08/31/16 21:00 09/30/16 20:59 09/03/16 08:26 Enalaprilat (Vasotec) 2.5 mg Q4H PRN IV SBP > 160 08/31/16 18:06 09/30/16 18:05 Epoetin Rajinder (Procrit (for ESRD on dialysis)) 10,000 units SUN-SUN-SUN SUBQ 09/01/16 21:00 10/01/16 20:59 09/01/16 22:17 Heparin Sodium (Porcine) (Heparin Sod 1000 units/ml 10ml) 2,000 unit ONCE PRN IV FOR DIALYSIS 09/04/16 06:00 09/04/16 18:00 Labetalol HCl (Normodyne) 300 mg Q12HR ORAL 08/31/16 21:00 09/30/16 20:59 09/02/16 20:31 Levetiracetam (Keppra) 1,000 mg Q12HR ORAL 08/31/16 21:00 09/30/16 20:59 09/03/16 08:24 Lisinopril (Zestril) 10 mg DAILY ORAL 09/01/16 09:00 10/01/16 08:59 09/02/16 08:19 Lorazepam (Ativan 2mg/ml 1ml) 0.5 mg Q4H PRN IV For Anxiety 08/31/16 18:15 09/07/16 18:14 Morphine Sulfate (Morphine Sulfate) 4 mg Q3H PRN IVP For Severe Pain 08/31/16 18:00 09/07/16 17:59 09/03/16 12:17 Ondansetron HCl (Zofran) 4 mg Q6H PRN IVP Nausea & Vomiting 08/31/16 18:13 09/30/16 18:12 09/03/16 08:25 Pantoprazole (Protonix) 40 mg DAILY IVP 09/01/16 09:00 10/01/16 08:59 09/03/16 08:28 Polyethylene Glycol (Miralax) 17 gm HSPRN PRN ORAL Constipation 08/31/16 18:13 09/30/16 18:12 Sodium Chloride (Sodium Chloride 1000ml bag) 1,000 ml @ 500 mls/hr Q2H PRN IVLG sbp<90 during hd 09/04/16 13:00 10/04/16 12:59 Vancomycin HCl (Vanco rx to dose) 1 ea DAILY PRN MISC Per rx protocol 08/31/16 18:14 09/30/16 18:13 Zolpidem Tartrate 5 mg 5 mg HSPRN PRN ORAL Insomnia 08/31/16 20:30 09/30/16 20:29 BETHEL PACK Sep 03, 2016 14:50
--- NOTE | 2016-09-03 15:10 | Infectious Diseases Prog Note ---
Assessment/Plan Assessment/Plan A; Pericarditis GI bleeding ESRD on HD Cachexia P: Continue Vancomycin & Rocephin Anemia Subjective ROS Limited/Unobtainable: No Respiratory: Reports: other - coughing blood Gastrointestinal/Abdominal: Reports: other - vomitig fresh blood & coffee ground Musculoskeletal: Reports: pain Allergies: Coded Allergies: PHENYTOIN SODIUM (Unverified Allergy, Intermediate, Hives, 12/01/11) PHENYTOIN SODIUM EXTENDED (Unverified Allergy, Intermediate, Hives, ) KETOROLAC (Verified Allergy, Mild, SOB, 06/28/11) METOCLOPRAMIDE (Verified Allergy, Mild, RASH, 06/28/11) NITROGLYCERIN (Verified Allergy, Mild, SEIZURES, 06/28/11) PENICILLINS (Verified Allergy, Mild, SOB, 06/28/11) PHENYTOIN (Verified Allergy, Mild, RASH, 06/28/11) ACETAMINOPHEN (Verified Allergy, Unknown, Shortness of Breath, 08/31/16) swelling throat, difficulty breathing HEPARIN (Verified Allergy, Unknown, Shortness of Breath, 08/28/16) HYDRALAZINE (Verified Allergy, Unknown, 08/28/16) HYDROCODONE (Verified Allergy, Unknown, Shortness of Breath, 08/31/16) swelling throat, difficulty breathing IBUPROFEN (Verified Allergy, Unknown, RASH, 06/28/11) IODINE (Verified Allergy, Unknown, SHOCK, 06/28/11) POLYSTYRENE SULFONATE (Verified Allergy, Unknown, RASH, 06/28/11) PROMETHAZINE (Verified Allergy, Unknown, RASH, 06/28/11) Objective Vital Signs Last 24 Hour Vital Signs Date Time Temp Pulse Resp B/P Pulse Ox O2 Delivery O2 Flow Rate FiO2 09/03/16 12:47 98.0 09/03/16 11:46 98.0 111 20 98/67 98 Room Air 09/03/16 08:29 114/71 09/03/16 08:28 112 114/71 09/03/16 08:28 114/71 09/03/16 08:24 98.1 112 20 114/71 100 Room Air 09/03/16 04:00 98.8 110 20 101/55 100 09/03/16 00:00 97.9 98 20 134/78 98 Room Air 09/02/16 20:31 107 121/84 09/02/16 20:03 97.7 107 18 121/84 Room Air 09/02/16 16:35 97.0 106 20 134/73 95 Room Air Height (Feet): 5 Height (Inches): 10.00 Weight (Pounds): 135 General Appearance: cachetic HEENT: mucous membranes moist Respiratory/Chest: lungs clear Cardiovascular: normal rate Abdomen: soft, non tender Extremities: no edema, other - left arm PICC line Neurologic/Psychiatric: alert, oriented x 3, responsive Musculoskeletal: atrophy Laboratory Tests Test 09/03/16 04:00 Vancomycin Level Trough 25.0 ug/mL (5.0-12.0) H Current Medications Medications (Trade) Dose Ordered Sig/Anant Route PRN Reason Start Time Stop Time Status Last Admin Dose Admin Acetaminophen (Tylenol) 650 mg Q4H PRN ORAL fever 08/31/16 18:04 09/30/16 18:03 Al Hydroxide/Mg Hydroxide (Mylanta II) 30 ml Q6H PRN ORAL dyspepsia 08/31/16 18:00 09/30/16 17:59 Ceftriaxone Sodium/Dextrose (Rocephin/D5W) 55 ml @ 110 mls/hr Q24H IVPB 09/01/16 13:00 09/08/16 12:59 09/03/16 12:17 Chlorhexidine Gluconate (Yessi-Hex 2%) 1 applic DAILY TOPIC 08/31/16 21:00 09/30/16 20:59 09/03/16 08:23 Clonidine HCl (Catapres) 0.1 mg Q4H PRN ORAL For SBP> 170 08/31/16 18:05 09/30/16 18:04 Clonidine HCl (Catapres) 0.2 mg DAILY ORAL 09/01/16 09:00 10/01/16 08:59 09/02/16 08:19 Dextrose (Dextrose 50%) STAT PRN IV Hypoglycemia 08/31/16 18:05 09/30/16 18:04 Diphenhydramine HCl (Benadryl) 25 mg Q6H PRN IVP Itching 08/31/16 18:06 09/30/16 18:05 09/03/16 10:20 Divalproex Sodium (Depakote) 250 mg Q12HR ORAL 08/31/16 21:00 09/30/16 20:59 09/03/16 08:26 Enalaprilat (Vasotec) 2.5 mg Q4H PRN IV SBP > 160 08/31/16 18:06 09/30/16 18:05 Epoetin Rajidner (Procrit (for ESRD on dialysis)) 10,000 units SUN-SUN-SUN SUBQ 09/01/16 21:00 10/01/16 20:59 09/01/16 22:17 Estrogens Conjugated (Premarin) 25 mg ONCE ONCE IV 09/03/16 16:00 09/03/16 16:01 Heparin Sodium (Porcine) (Heparin Sod 1000 units/ml 10ml) 2,000 unit ONCE PRN IV FOR DIALYSIS 09/04/16 06:00 09/04/16 18:00 Labetalol HCl (Normodyne) 300 mg Q12HR ORAL 08/31/16 21:00 09/30/16 20:59 09/02/16 20:31 Levetiracetam (Keppra) 1,000 mg Q12HR ORAL 08/31/16 21:00 09/30/16 20:59 09/03/16 08:24 Lisinopril (Zestril) 10 mg DAILY ORAL 09/01/16 09:00 10/01/16 08:59 09/02/16 08:19 Lorazepam (Ativan 2mg/ml 1ml) 0.5 mg Q4H PRN IV For Anxiety 08/31/16 18:15 09/07/16 18:14 Morphine Sulfate (Morphine Sulfate) 4 mg Q3H PRN IVP For Severe Pain 08/31/16 18:00 09/07/16 17:59 09/03/16 12:17 Ondansetron HCl (Zofran) 4 mg Q6H PRN IVP Nausea & Vomiting 08/31/16 18:13 09/30/16 18:12 09/03/16 08:25 Pantoprazole (Protonix) 40 mg DAILY IVP 09/01/16 09:00 10/01/16 08:59 09/03/16 08:28 Polyethylene Glycol (Miralax) 17 gm HSPRN PRN ORAL Constipation 08/31/16 18:13 09/30/16 18:12 Sodium Chloride (Sodium Chloride 1000ml bag) 1,000 ml @ 500 mls/hr Q2H PRN IVLG sbp<90 during hd 09/04/16 13:00 10/04/16 12:59 Vancomycin HCl (Vanco rx to dose) 1 ea DAILY PRN MISC Per rx protocol 08/31/16 18:14 09/30/16 18:13 Zolpidem Tartrate 5 mg 5 mg HSPRN PRN ORAL Insomnia 08/31/16 20:30 09/30/16 20:29 MARIMAR TORRES Sep 03, 2016 15:10
--- NOTE | 2016-09-03 15:21 | General Progress Note ---
Assessment/Plan Assessment/Plan Assessment - N/V - UGIB - HH - Midbody gastric lesion, biopsied - contractures - Anemia - Renal failure Recommendations - follow H&H - PPI - Elevate HOB - Carafate - PPI - f/u path Subjective Allergies: Coded Allergies: PHENYTOIN SODIUM (Unverified Allergy, Intermediate, Hives, 12/01/11) PHENYTOIN SODIUM EXTENDED (Unverified Allergy, Intermediate, Hives, ) KETOROLAC (Verified Allergy, Mild, SOB, 06/28/11) METOCLOPRAMIDE (Verified Allergy, Mild, RASH, 06/28/11) NITROGLYCERIN (Verified Allergy, Mild, SEIZURES, 06/28/11) PENICILLINS (Verified Allergy, Mild, SOB, 06/28/11) PHENYTOIN (Verified Allergy, Mild, RASH, 06/28/11) ACETAMINOPHEN (Verified Allergy, Unknown, Shortness of Breath, 08/31/16) swelling throat, difficulty breathing HEPARIN (Verified Allergy, Unknown, Shortness of Breath, 08/28/16) HYDRALAZINE (Verified Allergy, Unknown, 08/28/16) HYDROCODONE (Verified Allergy, Unknown, Shortness of Breath, 08/31/16) swelling throat, difficulty breathing IBUPROFEN (Verified Allergy, Unknown, RASH, 06/28/11) IODINE (Verified Allergy, Unknown, SHOCK, 06/28/11) POLYSTYRENE SULFONATE (Verified Allergy, Unknown, RASH, 06/28/11) PROMETHAZINE (Verified Allergy, Unknown, RASH, 06/28/11) Subjective c/o some R sided abd pain still with vomiting some blood in emesis overnight Objective Last 24 Hour Vital Signs Date Time Temp Pulse Resp B/P Pulse Ox O2 Delivery O2 Flow Rate FiO2 09/03/16 12:47 98.0 09/03/16 11:46 98.0 111 20 98/67 98 Room Air 09/03/16 08:29 114/71 09/03/16 08:28 112 114/71 09/03/16 08:28 114/71 09/03/16 08:24 98.1 112 20 114/71 100 Room Air 09/03/16 04:00 98.8 110 20 101/55 100 09/03/16 00:00 97.9 98 20 134/78 98 Room Air 09/02/16 20:31 107 121/84 09/02/16 20:03 97.7 107 18 121/84 Room Air 09/02/16 16:35 97.0 106 20 134/73 95 Room Air Intake and Output 09/02/16 09/03/16 19:00 07:00 Intake Total 120 ml 800 ml Balance 120 ml 800 ml Intake Oral 120 ml 800 ml Laboratory Tests 09/03/16 04:00: Vancomycin Level Trough 25.0H Height (Feet): 5 Height (Inches): 10.00 Weight (Pounds): 135 Objective Debilitated AA man in bed NCAT supple CTA RRR soft flat abd, (+) mild TTP (R) side of abd no edema BENJIE MARTELL Sep 03, 2016 15:21
[2016-09-03 16:00] VITALS: BP 104/70
[2016-09-03] MEDS ORDERED: Premarin Inj IV ONE (16:00)
[2016-09-03] MEDS: Sucralfate 1gm tab ORAL SCH ×2 (18:48→20:49)
[2016-09-03 20:00] VITALS: BP 123/81
--- NOTE | 2016-09-03 20:03 | General Progress Note ---
Assessment/Plan Assessment/Plan 1. Pancytopenia especially secondary to underlying inflammatory process. At this time hold off on bone marrow biopsy due to ESRD and HD. --> monitor labs --> hgb goal above 7, transfuse prn # Anemia of GI bleed --> GI following, s/p egd and biospy of gastric lesion 2. History of CVA. He had been on aspirin before. 3. End-stage renal disease. 4. Hemodialysis. Nephrology service management. 5. Chest pain, non-specific. 6. History of pericarditis. --> on [facility]x 7. HIV and Hepatitis panels ordered. --> both are negative 8. Elevated CEA. Tumor marker elevated. 9. Uncontrolled hypertension --> bp seems to be better controlled with addition of Prazoin and Vasotec IV Subjective Constitutional: Reports: no symptoms HEENT: Reports: no symptoms Cardiovascular: Reports: no symptoms Respiratory: Reports: no symptoms Gastrointestinal/Abdominal: Reports: no symptoms Genitourinary: Reports: no symptoms Neurologic/Psychiatric: Reports: no symptoms Endocrine: Reports: no symptoms Hematologic/Lymphatic: Reports: anemia Allergies: Coded Allergies: PHENYTOIN SODIUM (Unverified Allergy, Intermediate, Hives, 12/01/11) PHENYTOIN SODIUM EXTENDED (Unverified Allergy, Intermediate, Hives, ) KETOROLAC (Verified Allergy, Mild, SOB, 06/28/11) METOCLOPRAMIDE (Verified Allergy, Mild, RASH, 06/28/11) NITROGLYCERIN (Verified Allergy, Mild, SEIZURES, 06/28/11) PENICILLINS (Verified Allergy, Mild, SOB, 06/28/11) PHENYTOIN (Verified Allergy, Mild, RASH, 06/28/11) ACETAMINOPHEN (Verified Allergy, Unknown, Shortness of Breath, 08/31/16) swelling throat, difficulty breathing HEPARIN (Verified Allergy, Unknown, Shortness of Breath, 08/28/16) HYDRALAZINE (Verified Allergy, Unknown, 08/28/16) HYDROCODONE (Verified Allergy, Unknown, Shortness of Breath, 08/31/16) swelling throat, difficulty breathing IBUPROFEN (Verified Allergy, Unknown, RASH, 06/28/11) IODINE (Verified Allergy, Unknown, SHOCK, 06/28/11) POLYSTYRENE SULFONATE (Verified Allergy, Unknown, RASH, 06/28/11) PROMETHAZINE (Verified Allergy, Unknown, RASH, 06/28/11) Subjective no events, appears comfortable Objective Last 24 Hour Vital Signs Date Time Temp Pulse Resp B/P Pulse Ox O2 Delivery O2 Flow Rate FiO2 09/03/16 19:18 97.3 09/03/16 16:00 97.3 100 20 104/70 94 Room Air 09/03/16 11:46 98.0 111 20 98/67 98 Room Air 09/03/16 08:29 114/71 09/03/16 08:28 112 114/71 09/03/16 08:28 114/71 09/03/16 08:24 98.1 112 20 114/71 100 Room Air 09/03/16 04:00 98.8 110 20 101/55 100 09/03/16 00:00 97.9 98 20 134/78 98 Room Air 09/02/16 20:31 107 121/84 09/02/16 20:03 97.7 107 18 121/84 Room Air Intake and Output 09/02/16 09/03/16 19:00 07:00 Intake Total 120 ml 800 ml Balance 120 ml 800 ml Intake Oral 120 ml 800 ml Laboratory Tests 09/03/16 04:00: Vancomycin Level Trough 25.0H Height (Feet): 5 Height (Inches): 10.00 Weight (Pounds): 135 General Appearance: no apparent distress EENT: normal ENT inspection Neck: normal alignment Cardiovascular: normal peripheral pulses Respiratory/Chest: chest wall non-tender Abdomen: soft Neurologic: oriented x 3 Skin: normal pigmentation Chavo Alfaro Sep 03, 2016 20:03
[2016-09-04] VITALS: BP 120/79
[2016-09-04] MEDS: DiphenhydrAMINE 50mg/ml Inj IVP PRN ×3 (01:02→19:22)
[2016-09-04] MEDS: Morphine Sulfate 4mg/ml Inj IVP PRN ×6 (01:03→22:21)
[2016-09-04 04:00] VITALS: BP 116/76
[2016-09-04 05:21] LABS: EOSINOPHILS % (AUTO) 0.7 % (0.0-3.0); LYMPHOCYTES % (AUTO) 11.5 % (20.0-45.0); MEAN CORPUSCULAR HEMOGLOBIN 31.1 PG (27.0-31.0); MEAN CORPUSCULAR VOLUME 97 FL (80-99); MEAN PLATELET VOLUME 6.2 FL (6.5-10.1); MONOCYTES % (AUTO) 13.3 % (1.0-10.0); NEUTROPHILS % (AUTO) 73.4 % (45.0-75.0); PLATELET COUNT 123 K/UL (150-450); RED BLOOD COUNT 2.86 M/UL (4.70-6.10); RED CELL DISTRIBUTION WIDTH 17.5 % (11.6-14.8)
[2016-09-04 05:39] LABS: CALCIUM 9.3 mg/dL (8.6-10.2); CREATININE 8.3 mg/dL (0.7-1.2); GLOMERULAR FILTRATION RATE 9.2 mL/min (>60); PHOSPHORUS 5.3 mg/dL (2.5-4.8); POTASSIUM 4.8 mEQ/L (3.4-4.9)
[2016-09-04] MEDS ORDERED: Heparin Sod 1000 units/ml 10ml IV PRN (06:00)
[2016-09-04 08:00] VITALS: BP 137/94
--- NOTE | 2016-09-04 08:04 | Diagnostic Imaging Report ---
Indication: Abdominal pain Technique: Armstrong-scale and duplex images of the upper abdomen were obtained Comparison: Reference made to CT abdomen pelvis 06/28/2011 Findings: Gallbladder is unremarkable, without stones, wall thickening, nor pericholecystic fluid. Sonographic Awad's sign is negative. Common bile duct measures 7 mm in diameter. No intrahepatic biliary ductal dilatation. Liver demonstrates coarsened echogenicity. Is a calcification within the right hepatic lobe, also demonstrated on prior CT scan, presumably postinflammatory. Portal vein and hepatic veins are patent. Pancreas is unremarkable. Spleen is unremarkable. Neither kidney could be identified. Non-aneurysmal abdominal aorta . Impression: Nonvisualization of the kidneys. Note that the prior CT scan demonstrates evidence of prior bilateral nephrectomy Negative for gallstones. Mild extrahepatic biliary ductal dilatation, significance uncertain. Downstream obstruction not completely excludable. Correlate with liver function tests, consider MRI if clinically indicated Nonspecific mild coarsening of the hepatic echogenicity, could indicate hepatocellular disease. Correlate with clinical findings Right lobe liver calcification, presumably postinflammatory, also demonstrated on prior CT scan
[2016-09-04] MEDS: cloNIDine 0.2mg Tab ORAL SCH (09:00)
[2016-09-04] MEDS: Lisinopril 10mg tab ORAL SCH (09:00)
[2016-09-04] MEDS: Dyna-Hex 2% Top Sol 8oz TOPIC SCH (10:17)
[2016-09-04] MEDS: Pantoprazole Inj IVP SCH (10:18)
[2016-09-04] MEDS: Sucralfate 1gm tab ORAL SCH ×5 (10:19→21:20)
--- NOTE | 2016-09-04 10:22 | Infectious Diseases Prog Note ---
Assessment/Plan Assessment/Plan ASSESSMENT: 30 y/o male with: // Recurrent pericarditis on IV vancomycin, rocephin prior to admission - h/o PCW, repeated pericardiocenteses @ [facility] // Negative HIV, hepatitis panel // Pancytopenia, afebrile - heme following // CVA // CAD // ESRD / HD // Chronic LLE DVT // VRE colonized // PCN allergy - tolerating rocephin // Full Code PLAN: - continue IV vancomycin, rocephin until mid september per outside providers - monitor CBC, temperatures - monitor BMP Subjective Allergies: Coded Allergies: PHENYTOIN SODIUM (Unverified Allergy, Intermediate, Hives, 12/01/11) PHENYTOIN SODIUM EXTENDED (Unverified Allergy, Intermediate, Hives, ) KETOROLAC (Verified Allergy, Mild, SOB, 06/28/11) METOCLOPRAMIDE (Verified Allergy, Mild, RASH, 06/28/11) NITROGLYCERIN (Verified Allergy, Mild, SEIZURES, 06/28/11) PENICILLINS (Verified Allergy, Mild, SOB, 06/28/11) PHENYTOIN (Verified Allergy, Mild, RASH, 06/28/11) ACETAMINOPHEN (Verified Allergy, Unknown, Shortness of Breath, 08/31/16) swelling throat, difficulty breathing HEPARIN (Verified Allergy, Unknown, Shortness of Breath, 08/28/16) HYDRALAZINE (Verified Allergy, Unknown, 08/28/16) HYDROCODONE (Verified Allergy, Unknown, Shortness of Breath, 08/31/16) swelling throat, difficulty breathing IBUPROFEN (Verified Allergy, Unknown, RASH, 06/28/11) IODINE (Verified Allergy, Unknown, SHOCK, 06/28/11) POLYSTYRENE SULFONATE (Verified Allergy, Unknown, RASH, 06/28/11) PROMETHAZINE (Verified Allergy, Unknown, RASH, 06/28/11) Subjective remains afebrile no new complaint Objective Vital Signs Last 24 Hour Vital Signs Date Time Temp Pulse Resp B/P Pulse Ox O2 Delivery O2 Flow Rate FiO2 09/04/16 08:00 96.6 113 18 137/94 Room Air 09/04/16 04:59 98.2 09/04/16 04:00 98.0 113 20 116/76 97 Room Air 09/04/16 00:00 98.3 103 20 120/79 90 Room Air 09/03/16 20:51 113 123/81 09/03/16 20:00 98.2 113 20 123/81 Room Air 09/03/16 16:00 97.3 100 20 104/70 94 Room Air 09/03/16 11:46 98.0 111 20 98/67 98 Room Air Height (Feet): 5 Height (Inches): 10.00 Weight (Pounds): 135 General Appearance: no acute distress Respiratory/Chest: no respiratory distress Cardiovascular: normal rate, regular rhythm Abdomen: normal bowel sounds, soft, non tender, non distended Laboratory Tests Test 09/04/16 04:30 White Blood Count 6.0 K/UL (4.8-10.8) Red Blood Count 2.86 M/UL (4.70-6.10) L Hemoglobin 8.9 G/DL (14.2-18.0) L Hematocrit 27.8 % (42.0-52.0) L Mean Corpuscular Volume 97 FL (80-99) Mean Corpuscular Hemoglobin 31.1 PG (27.0-31.0) H Mean Corpuscular Hemoglobin Concent 32.0 G/DL (32.0-36.0) Red Cell Distribution Width 17.5 % (11.6-14.8) H Platelet Count 123 K/UL (150-450) L Mean Platelet Volume 6.2 FL (6.5-10.1) L Neutrophils (%) (Auto) 73.4 % (45.0-75.0) Lymphocytes (%) (Auto) 11.5 % (20.0-45.0) L Monocytes (%) (Auto) 13.3 % (1.0-10.0) H Eosinophils (%) (Auto) 0.7 % (0.0-3.0) Basophils (%) (Auto) 1.0 % (0.0-2.0) Sodium Level 141 mEQ/L (135-145) Potassium Level 4.8 mEQ/L (3.4-4.9) Chloride Level 90 mEQ/L (98-107) L Carbon Dioxide Level 26 mEQ/L (20-30) Anion Gap 25 (5-15) H Blood Urea Nitrogen 113 mg/dL (7-23) H Creatinine 8.3 mg/dL (0.7-1.2) H Estimat Glomerular Filtration Rate 9.2 mL/min (>60) Glucose Level 88 mg/dL (74-106) Calcium Level 9.3 mg/dL (8.6-10.2) Phosphorus Level 5.3 mg/dL (2.5-4.8) H Random Vancomycin Level 23.0 ug/mL Current Medications Medications (Trade) Dose Ordered Sig/Anant Route PRN Reason Start Time Stop Time Status Last Admin Dose Admin Acetaminophen (Tylenol) 650 mg Q4H PRN ORAL fever 08/31/16 18:04 09/30/16 18:03 Al Hydroxide/Mg Hydroxide (Mylanta II) 30 ml Q6H PRN ORAL dyspepsia 08/31/16 18:00 09/30/16 17:59 Ceftriaxone Sodium/Dextrose (Rocephin/D5W) 55 ml @ 110 mls/hr Q24H IVPB 09/01/16 13:00 09/08/16 12:59 09/03/16 12:17 Chlorhexidine Gluconate (Yessi-Hex 2%) 1 applic DAILY TOPIC 08/31/16 21:00 09/30/16 20:59 09/04/16 10:17 Clonidine HCl (Catapres) 0.1 mg Q4H PRN ORAL For SBP> 170 08/31/16 18:05 09/30/16 18:04 Clonidine HCl (Catapres) 0.2 mg DAILY ORAL 09/01/16 09:00 10/01/16 08:59 09/02/16 08:19 Dextrose (Dextrose 50%) STAT PRN IV Hypoglycemia 08/31/16 18:05 09/30/16 18:04 Diphenhydramine HCl (Benadryl) 25 mg Q6H PRN IVP Itching 08/31/16 18:06 09/30/16 18:05 09/04/16 10:20 Divalproex Sodium (Depakote) 250 mg Q12HR ORAL 08/31/16 21:00 09/30/16 20:59 09/04/16 10:19 Enalaprilat (Vasotec) 2.5 mg Q4H PRN IV SBP > 160 08/31/16 18:06 09/30/16 18:05 Epoetin Rajinder (Procrit (for ESRD on dialysis)) 10,000 units SUN-SUN-SUN SUBQ 09/01/16 21:00 10/01/16 20:59 09/01/16 22:17 Heparin Sodium (Porcine) (Heparin Sod 1000 units/ml 10ml) 2,000 unit ONCE PRN IV FOR DIALYSIS 09/04/16 06:00 09/04/16 18:00 Labetalol HCl (Normodyne) 300 mg Q12HR ORAL 08/31/16 21:00 09/30/16 20:59 09/03/16 20:51 Levetiracetam (Keppra) 1,000 mg Q12HR ORAL 08/31/16 21:00 09/30/16 20:59 09/04/16 10:17 Lisinopril (Zestril) 10 mg DAILY ORAL 09/01/16 09:00 10/01/16 08:59 09/02/16 08:19 Lorazepam (Ativan 2mg/ml 1ml) 0.5 mg Q4H PRN IV For Anxiety 08/31/16 18:15 09/07/16 18:14 Morphine Sulfate (Morphine Sulfate) 4 mg Q3H PRN IVP For Severe Pain 08/31/16 18:00 09/07/16 17:59 09/04/16 10:19 Ondansetron HCl (Zofran) 4 mg Q6H PRN IVP Nausea & Vomiting 08/31/16 18:13 09/30/16 18:12 09/04/16 10:20 Pantoprazole (Protonix) 40 mg DAILY IVP 09/01/16 09:00 10/01/16 08:59 09/04/16 10:18 Polyethylene Glycol (Miralax) 17 gm HSPRN PRN ORAL Constipation 08/31/16 18:13 09/30/16 18:12 Sodium Chloride (Sodium Chloride 1000ml bag) 1,000 ml @ 500 mls/hr Q2H PRN IVLG sbp<90 during hd 09/04/16 13:00 10/04/16 12:59 Sucralfate (Carafate) 1 gm FOUR TIMES A DAY ORAL 09/03/16 18:00 10/03/16 17:59 09/04/16 10:19 Vancomycin HCl (Vanco rx to dose) 1 ea DAILY PRN MISC Per rx protocol 08/31/16 18:14 09/30/16 18:13 Zolpidem Tartrate 5 mg 5 mg HSPRN PRN ORAL Insomnia 08/31/16 20:30 09/30/16 20:29 SONJA ASTORGA Sep 04, 2016 10:22
--- NOTE | 2016-09-04 11:39 | GI Progress Note ---
Assessment/Plan Problems: (1) Alkaline phosphatase elevation ICD Codes: R74.8 - Abnormal levels of other serum enzymes SNOMED: 130235820 (2) Severe malnutrition ICD Codes: E43 - Unspecified severe protein-calorie malnutrition SNOMED: 65067005 (3) Pancytopenia ICD Codes: D61.818 - Other pancytopenia SNOMED: 758949127 Status: stable, unchanged Status Narrative Discussed with Dr. Sandoval. Assessment/Plan elevated CEA 8.6 HIV negative - N/V - UGIB - HH - Midbody gastric lesion, biopsied - contractures - Anemia - Renal failure Recommendations - follow H&H >> stable - PPI - Elevate HOB - Carafate - PPI - f/u path Subjective Subjective generalized weakness coffee grounds Objective Last 24 Hour Vital Signs Date Time Temp Pulse Resp B/P Pulse Ox O2 Delivery O2 Flow Rate FiO2 09/04/16 10:49 96.6 09/04/16 09:00 137/94 09/04/16 09:00 113 137/94 09/04/16 09:00 137/94 09/04/16 08:00 96.6 113 18 137/94 Room Air 09/04/16 04:00 98.0 113 20 116/76 97 Room Air 09/04/16 00:00 98.3 103 20 120/79 90 Room Air 09/03/16 20:51 113 123/81 09/03/16 20:00 98.2 113 20 123/81 Room Air 09/03/16 16:00 97.3 100 20 104/70 94 Room Air 09/03/16 11:46 98.0 111 20 98/67 98 Room Air Intake and Output 09/03/16 09/04/16 19:00 07:00 Intake Total 770 ml 600 ml Output Total 150 ml 640 ml Balance 620 ml -40 ml Intake Oral 770 ml 600 ml Output Emesis 150 ml 640 ml # Voids 1 Laboratory Tests Test 09/04/16 04:30 White Blood Count 6.0 K/UL (4.8-10.8) Red Blood Count 2.86 M/UL (4.70-6.10) L Hemoglobin 8.9 G/DL (14.2-18.0) L Hematocrit 27.8 % (42.0-52.0) L Mean Corpuscular Volume 97 FL (80-99) Mean Corpuscular Hemoglobin 31.1 PG (27.0-31.0) H Mean Corpuscular Hemoglobin Concent 32.0 G/DL (32.0-36.0) Red Cell Distribution Width 17.5 % (11.6-14.8) H Platelet Count 123 K/UL (150-450) L Mean Platelet Volume 6.2 FL (6.5-10.1) L Neutrophils (%) (Auto) 73.4 % (45.0-75.0) Lymphocytes (%) (Auto) 11.5 % (20.0-45.0) L Monocytes (%) (Auto) 13.3 % (1.0-10.0) H Eosinophils (%) (Auto) 0.7 % (0.0-3.0) Basophils (%) (Auto) 1.0 % (0.0-2.0) Sodium Level 141 mEQ/L (135-145) Potassium Level 4.8 mEQ/L (3.4-4.9) Chloride Level 90 mEQ/L (98-107) L Carbon Dioxide Level 26 mEQ/L (20-30) Anion Gap 25 (5-15) H Blood Urea Nitrogen 113 mg/dL (7-23) H Creatinine 8.3 mg/dL (0.7-1.2) H Estimat Glomerular Filtration Rate 9.2 mL/min (>60) Glucose Level 88 mg/dL (74-106) Calcium Level 9.3 mg/dL (8.6-10.2) Phosphorus Level 5.3 mg/dL (2.5-4.8) H Random Vancomycin Level 23.0 ug/mL Height (Feet): 5 Height (Inches): 10.00 Weight (Pounds): 135 General Appearance: no apparent distress, alert, thin Cardiovascular: normal rate Respiratory/Chest: normal breath sounds, no respiratory distress Abdominal Exam: normal bowel sounds, non tender, soft Ashleigh Marie N.P. Sep 04, 2016 11:39
[2016-09-04 12:00] VITALS: BP 133/89
--- NOTE | 2016-09-04 14:26 | Nephrology Progress Note ---
Assessment/Plan Plan Post EGD h/o Uremic Gastritis. . HD today.. Subjective Subjective Has multiple c/O Bleeding from above and below. Objective Objective Last 24 Hour Vital Signs Date Time Temp Pulse Resp B/P Pulse Ox O2 Delivery O2 Flow Rate FiO2 09/04/16 12:00 97.0 92 18 133/89 98 Room Air 09/04/16 10:49 96.6 09/04/16 09:00 137/94 09/04/16 09:00 113 137/94 09/04/16 09:00 137/94 09/04/16 08:00 96.6 113 18 137/94 Room Air 09/04/16 04:00 98.0 113 20 116/76 97 Room Air 09/04/16 00:00 98.3 103 20 120/79 90 Room Air 09/03/16 20:51 113 123/81 09/03/16 20:00 98.2 113 20 123/81 Room Air 09/03/16 16:00 97.3 100 20 104/70 94 Room Air Intake and Output 09/03/16 09/04/16 19:00 07:00 Intake Total 770 ml 600 ml Output Total 150 ml 640 ml Balance 620 ml -40 ml Intake Oral 770 ml 600 ml Output Emesis 150 ml 640 ml # Voids 1 Laboratory Tests 09/04/16 04:30: White Blood Count 6.0, Red Blood Count 2.86L, Hemoglobin 8.9L, Hematocrit 27.8L , Mean Corpuscular Volume 97, Mean Corpuscular Hemoglobin 31.1H, Mean Corpuscular Hemoglobin Concent 32.0, Red Cell Distribution Width 17.5H, Platelet Count 123L, Mean Platelet Volume 6.2L, Neutrophils (%) (Auto) 73.4, Lymphocytes (%) (Auto) 11.5L, Monocytes (%) (Auto) 13.3H, Eosinophils (%) (Auto ) 0.7, Basophils (%) (Auto) 1.0, Sodium Level 141, Potassium Level 4.8, Chloride Level 90L, Carbon Dioxide Level 26, Anion Gap 25H, Blood Urea Nitrogen 113H, Creatinine 8.3H, Estimat Glomerular Filtration Rate 9.2, Glucose Level 88 , Calcium Level 9.3, Phosphorus Level 5.3H, Random Vancomycin Level 23.0 Height (Feet): 5 Height (Inches): 10.00 Weight (Pounds): 135 Objective Cachechtic Neck supple. Lungs CTA CV RR Abd SNT. BS + E CAPRICE AVF + bruit. ARNIE SWEET Sep 04, 2016 14:26
--- NOTE | 2016-09-04 14:52 | General Progress Note ---
Assessment/Plan Assessment/Plan 1. Pancytopenia especially secondary to underlying inflammatory process. At this time hold off on bone marrow biopsy due to ESRD and HD. --> monitor labs --> hgb goal above 7, transfuse prn # Anemia of GI bleed --> GI following, s/p egd and biospy of gastric lesion 2. History of CVA. He had been on aspirin before. 3. End-stage renal disease. 4. Hemodialysis. Nephrology service management. 5. Chest pain, non-specific. 6. History of pericarditis. --> on group home abx 7. HIV and Hepatitis panels ordered. --> both are negative 8. Elevated CEA. Tumor marker elevated. 9. Uncontrolled hypertension --> is now better controlled Subjective Constitutional: Reports: no symptoms HEENT: Reports: no symptoms Cardiovascular: Reports: no symptoms Respiratory: Reports: no symptoms Gastrointestinal/Abdominal: Reports: no symptoms Genitourinary: Reports: no symptoms Neurologic/Psychiatric: Reports: no symptoms Endocrine: Reports: no symptoms Hematologic/Lymphatic: Reports: anemia Allergies: Coded Allergies: PHENYTOIN SODIUM (Unverified Allergy, Intermediate, Hives, 12/01/11) PHENYTOIN SODIUM EXTENDED (Unverified Allergy, Intermediate, Hives, ) KETOROLAC (Verified Allergy, Mild, SOB, 06/28/11) METOCLOPRAMIDE (Verified Allergy, Mild, RASH, 06/28/11) NITROGLYCERIN (Verified Allergy, Mild, SEIZURES, 06/28/11) PENICILLINS (Verified Allergy, Mild, SOB, 06/28/11) PHENYTOIN (Verified Allergy, Mild, RASH, 06/28/11) ACETAMINOPHEN (Verified Allergy, Unknown, Shortness of Breath, 08/31/16) swelling throat, difficulty breathing HEPARIN (Verified Allergy, Unknown, Shortness of Breath, 08/28/16) HYDRALAZINE (Verified Allergy, Unknown, 08/28/16) HYDROCODONE (Verified Allergy, Unknown, Shortness of Breath, 08/31/16) swelling throat, difficulty breathing IBUPROFEN (Verified Allergy, Unknown, RASH, 06/28/11) IODINE (Verified Allergy, Unknown, SHOCK, 06/28/11) POLYSTYRENE SULFONATE (Verified Allergy, Unknown, RASH, 06/28/11) PROMETHAZINE (Verified Allergy, Unknown, RASH, 06/28/11) Subjective scheduled to receive HD today Objective Last 24 Hour Vital Signs Date Time Temp Pulse Resp B/P Pulse Ox O2 Delivery O2 Flow Rate FiO2 09/04/16 12:00 97.0 92 18 133/89 98 Room Air 09/04/16 10:49 96.6 09/04/16 09:00 137/94 09/04/16 09:00 113 137/94 09/04/16 09:00 137/94 09/04/16 08:00 96.6 113 18 137/94 Room Air 09/04/16 04:00 98.0 113 20 116/76 97 Room Air 09/04/16 00:00 98.3 103 20 120/79 90 Room Air 09/03/16 20:51 113 123/81 09/03/16 20:00 98.2 113 20 123/81 Room Air 09/03/16 16:00 97.3 100 20 104/70 94 Room Air Intake and Output 09/03/16 09/04/16 19:00 07:00 Intake Total 770 ml 600 ml Output Total 150 ml 640 ml Balance 620 ml -40 ml Intake Oral 770 ml 600 ml Output Emesis 150 ml 640 ml # Voids 1 Laboratory Tests 09/04/16 04:30: White Blood Count 6.0, Red Blood Count 2.86L, Hemoglobin 8.9L, Hematocrit 27.8L , Mean Corpuscular Volume 97, Mean Corpuscular Hemoglobin 31.1H, Mean Corpuscular Hemoglobin Concent 32.0, Red Cell Distribution Width 17.5H, Platelet Count 123L, Mean Platelet Volume 6.2L, Neutrophils (%) (Auto) 73.4, Lymphocytes (%) (Auto) 11.5L, Monocytes (%) (Auto) 13.3H, Eosinophils (%) (Auto ) 0.7, Basophils (%) (Auto) 1.0, Sodium Level 141, Potassium Level 4.8, Chloride Level 90L, Carbon Dioxide Level 26, Anion Gap 25H, Blood Urea Nitrogen 113H, Creatinine 8.3H, Estimat Glomerular Filtration Rate 9.2, Glucose Level 88 , Calcium Level 9.3, Phosphorus Level 5.3H, Random Vancomycin Level 23.0 Height (Feet): 5 Height (Inches): 10.00 Weight (Pounds): 135 General Appearance: WD/WN EENT: normal ENT inspection Neck: normal inspection Respiratory/Chest: normal breath sounds Abdomen: non tender Extremities: non-tender Neurologic: quality facilitator II-XII grossly normal Chavo Alfaro Sep 04, 2016 14:52
[2016-09-04 16:00] VITALS: BP 129/68
[2016-09-04] MEDS: cefTRIAXone 1 GM in D5W 55 ML IVPB SCH (17:26)
[2016-09-04 20:00] VITALS: BP 103/71
[2016-09-04] MEDS: Epogen (for ESRD on dialysis) SUBQ SCH (21:20)
--- NOTE | 2016-09-04 23:06 | Pulmonology Progress Note ---
Assessment/Plan Problems: (1) Uncontrolled hypertension (2) Pericarditis (3) Chest pain (4) Anemia (5) Pancytopenia (6) ESRF (end stage renal failure) (7) Left hemiplegia (8) History of CVA (cerebrovascular accident) Assessment/Plan neuro consult decrease amount of narcotics because of episodes of nauseastill has hematemesis check h/h, stable despite the claim of hemoptysis HD by nephrology skilled nursing abx for pericarditis Subjective Interval Events: episodes of seizure and hematemesis Allergies: Coded Allergies: PHENYTOIN SODIUM (Unverified Allergy, Intermediate, Hives, 12/01/11) PHENYTOIN SODIUM EXTENDED (Unverified Allergy, Intermediate, Hives, ) KETOROLAC (Verified Allergy, Mild, SOB, 06/28/11) METOCLOPRAMIDE (Verified Allergy, Mild, RASH, 06/28/11) NITROGLYCERIN (Verified Allergy, Mild, SEIZURES, 06/28/11) PENICILLINS (Verified Allergy, Mild, SOB, 06/28/11) PHENYTOIN (Verified Allergy, Mild, RASH, 06/28/11) ACETAMINOPHEN (Verified Allergy, Unknown, Shortness of Breath, 08/31/16) swelling throat, difficulty breathing HEPARIN (Verified Allergy, Unknown, Shortness of Breath, 08/28/16) HYDRALAZINE (Verified Allergy, Unknown, 08/28/16) HYDROCODONE (Verified Allergy, Unknown, Shortness of Breath, 08/31/16) swelling throat, difficulty breathing IBUPROFEN (Verified Allergy, Unknown, RASH, 06/28/11) IODINE (Verified Allergy, Unknown, SHOCK, 06/28/11) POLYSTYRENE SULFONATE (Verified Allergy, Unknown, RASH, 06/28/11) PROMETHAZINE (Verified Allergy, Unknown, RASH, 06/28/11) Objective Last 24 Hour Vital Signs Date Time Temp Pulse Resp B/P Pulse Ox O2 Delivery O2 Flow Rate FiO2 09/04/16 22:57 98.1 09/04/16 21:00 122 103/71 09/04/16 20:00 98.1 122 20 103/71 97 Room Air 09/04/16 17:40 Room Air 09/04/16 17:34 Room Air 09/04/16 16:00 98.1 131 12 129/68 100 Room Air 09/04/16 12:00 97.0 92 18 133/89 98 Room Air 09/04/16 09:00 137/94 09/04/16 09:00 113 137/94 09/04/16 09:00 137/94 09/04/16 08:00 96.6 113 18 137/94 Room Air 09/04/16 04:00 98.0 113 20 116/76 97 Room Air 09/04/16 00:00 98.3 103 20 120/79 90 Room Air Intake and Output 09/03/16 09/04/16 19:00 07:00 Intake Total 770 ml 600 ml Output Total 150 ml 640 ml Balance 620 ml -40 ml Intake Oral 770 ml 600 ml Output Emesis 150 ml 640 ml # Voids 1 Objective General Appearance: cachectic HEENT: normocephalic Respiratory/Chest: chest wall non-tender, lungs clear Breasts: no masses Cardiovascular: normal peripheral pulses Abdomen: normal bowel sounds, soft, non tender Genitourinary: normal external genitalia Skin: no rash Laboratory Tests 09/04/16 04:30: White Blood Count 6.0, Red Blood Count 2.86L, Hemoglobin 8.9L, Hematocrit 27.8L , Mean Corpuscular Volume 97, Mean Corpuscular Hemoglobin 31.1H, Mean Corpuscular Hemoglobin Concent 32.0, Red Cell Distribution Width 17.5H, Platelet Count 123L, Mean Platelet Volume 6.2L, Neutrophils (%) (Auto) 73.4, Lymphocytes (%) (Auto) 11.5L, Monocytes (%) (Auto) 13.3H, Eosinophils (%) (Auto ) 0.7, Basophils (%) (Auto) 1.0, Sodium Level 141, Potassium Level 4.8, Chloride Level 90L, Carbon Dioxide Level 26, Anion Gap 25H, Blood Urea Nitrogen 113H, Creatinine 8.3H, Estimat Glomerular Filtration Rate 9.2, Glucose Level 88 , Calcium Level 9.3, Phosphorus Level 5.3H, Random Vancomycin Level 23.0 Current Medications Medications (Trade) Dose Ordered Sig/Anant Route PRN Reason Start Time Stop Time Status Last Admin Dose Admin Acetaminophen (Tylenol) 650 mg Q4H PRN ORAL fever 08/31/16 18:04 09/30/16 18:03 Al Hydroxide/Mg Hydroxide (Mylanta II) 30 ml Q6H PRN ORAL dyspepsia 08/31/16 18:00 09/30/16 17:59 Ceftriaxone Sodium/Dextrose (Rocephin/D5W) 55 ml @ 110 mls/hr Q24H IVPB 09/01/16 13:00 09/08/16 12:59 09/04/16 17:26 Chlorhexidine Gluconate (Yessi-Hex 2%) 1 applic DAILY TOPIC 08/31/16 21:00 09/30/16 20:59 09/04/16 10:17 Clonidine HCl (Catapres) 0.1 mg Q4H PRN ORAL For SBP> 170 08/31/16 18:05 09/30/16 18:04 Clonidine HCl (Catapres) 0.2 mg DAILY ORAL 09/01/16 09:00 10/01/16 08:59 09/02/16 08:19 Dextrose (Dextrose 50%) STAT PRN IV Hypoglycemia 08/31/16 18:05 09/30/16 18:04 Diazepam (Valium) 5 mg Q4H PRN IV For Seizures 09/04/16 19:45 09/11/16 19:44 Diphenhydramine HCl (Benadryl) 25 mg Q6H PRN IVP Itching 08/31/16 18:06 09/30/16 18:05 09/04/16 19:22 Divalproex Sodium (Depakote) 250 mg Q12HR ORAL 08/31/16 21:00 09/30/16 20:59 09/04/16 21:20 Enalaprilat (Vasotec) 2.5 mg Q4H PRN IV SBP > 160 08/31/16 18:06 09/30/16 18:05 Epoetin Rajinder (Procrit (for ESRD on dialysis)) 10,000 units SUN-SUN-SUN SUBQ 09/01/16 21:00 10/01/16 20:59 09/04/16 21:20 Labetalol HCl (Normodyne) 300 mg Q12HR ORAL 08/31/16 21:00 09/30/16 20:59 09/03/16 20:51 Levetiracetam (Keppra) 1,000 mg Q12HR ORAL 08/31/16 21:00 09/30/16 20:59 09/04/16 21:20 Lisinopril (Zestril) 10 mg DAILY ORAL 09/01/16 09:00 10/01/16 08:59 09/02/16 08:19 Lorazepam (Ativan 2mg/ml 1ml) 0.5 mg Q4H PRN IV For Anxiety 08/31/16 18:15 09/07/16 18:14 09/04/16 16:16 Morphine Sulfate (Morphine Sulfate) 4 mg Q3H PRN IVP For Severe Pain 08/31/16 18:00 09/07/16 17:59 09/04/16 22:21 Ondansetron HCl (Zofran) 4 mg Q6H PRN IVP Nausea & Vomiting 08/31/16 18:13 09/30/16 18:12 09/04/16 19:27 Pantoprazole (Protonix) 40 mg DAILY IVP 09/01/16 09:00 10/01/16 08:59 09/04/16 10:18 Polyethylene Glycol (Miralax) 17 gm HSPRN PRN ORAL Constipation 08/31/16 18:13 09/30/16 18:12 Sodium Chloride (Sodium Chloride 1000ml bag) 1,000 ml @ 500 mls/hr Q2H PRN IVLG sbp<90 during hd 09/04/16 13:00 10/04/16 12:59 Sucralfate (Carafate) 1 gm FOUR TIMES A DAY ORAL 09/03/16 18:00 10/03/16 17:59 09/04/16 21:20 Vancomycin HCl (Vanco rx to dose) 1 ea DAILY PRN MISC Per rx protocol 08/31/16 18:14 09/30/16 18:13 Zolpidem Tartrate 5 mg 5 mg HSPRN PRN ORAL Insomnia 08/31/16 20:30 09/30/16 20:29 BETHEL PCAK Sep 04, 2016 23:06
[2016-09-05] VITALS (7 sets, daily range): BP systolic 96–162; BP diastolic 53–112
[2016-09-05] MEDS: DiphenhydrAMINE 50mg/ml Inj IVP PRN ×3 (01:26→15:44)
[2016-09-05] MEDS: Morphine Sulfate 2mg/ml Inj IVP PRN ×5 (01:27→15:37)
[2016-09-05] MEDS: Pantoprazole Inj IVP SCH (08:55)
[2016-09-05] MEDS: Sucralfate 1gm tab ORAL SCH ×6 (09:00→21:00)
[2016-09-05] MEDS: Lisinopril 10mg tab ORAL SCH (09:01)
[2016-09-05] MEDS: cloNIDine 0.2mg Tab ORAL SCH (09:01)
[2016-09-05] MEDS: Dyna-Hex 2% Top Sol 8oz TOPIC SCH (09:10)
--- NOTE | 2016-09-05 09:49 | Nephrology Progress Note ---
Assessment/Plan Plan Post EGD h/o Uremic Gastritis. . HD tomorrow.. Subjective Subjective Has multiple c/O Now had seizures Objective Objective Last 24 Hour Vital Signs Date Time Temp Pulse Resp B/P Pulse Ox O2 Delivery O2 Flow Rate FiO2 09/05/16 09:01 150/87 09/05/16 09:01 150/87 09/05/16 08:59 112 150/87 09/05/16 08:00 97.0 117 18 162/112 95 Room Air 09/05/16 05:37 98.2 09/05/16 04:00 98.2 112 20 150/87 96 Room Air 09/05/16 00:00 98.1 118 20 123/95 97 Room Air 09/04/16 22:57 98.1 09/04/16 21:00 122 103/71 09/04/16 20:00 98.1 122 20 103/71 97 Room Air 09/04/16 17:40 Room Air 09/04/16 17:34 Room Air 09/04/16 16:00 98.1 131 12 129/68 100 Room Air 09/04/16 12:00 97.0 92 18 133/89 98 Room Air Intake and Output 09/04/16 09/05/16 19:00 07:00 Intake Total 800 ml Balance 800 ml Intake Oral 800 ml # Voids 1 Height (Feet): 5 Height (Inches): 10.00 Weight (Pounds): 135 Objective Cachechtic Neck supple. Lungs CTA CV RR Abd SNT. BS + E CAPRICE AVF + bruit. ARNIE SWEET Sep 05, 2016 09:49
[2016-09-05] MEDS ORDERED: Heparin Sod 1000 units/ml 10ml IV PRN (10:00)
--- NOTE | 2016-09-05 13:29 | GI Progress Note ---
Assessment/Plan Problems: (1) Alkaline phosphatase elevation ICD Codes: R74.8 - Abnormal levels of other serum enzymes SNOMED: 488247245 (2) Severe malnutrition ICD Codes: E43 - Unspecified severe protein-calorie malnutrition SNOMED: 92434250 (3) Pancytopenia ICD Codes: D61.818 - Other pancytopenia SNOMED: 205715581 Status: stable Status Narrative Discussed with Dr. Sandoval. Assessment/Plan elevated CEA 8.6 HIV negative - N/V - UGIB - HH - Midbody gastric lesion, biopsied - contractures - Anemia - Renal failure Recommendations - follow H&H >> stable - PPI - Elevate HOB - Carafate - PPI - f/u path Subjective Subjective generalized weakness Objective Last 24 Hour Vital Signs Date Time Temp Pulse Resp B/P Pulse Ox O2 Delivery O2 Flow Rate FiO2 09/05/16 12:27 104 103/59 09/05/16 12:00 96.4 106 18 96/53 97 Room Air 09/05/16 09:01 150/87 09/05/16 09:01 150/87 09/05/16 08:59 112 150/87 09/05/16 08:00 97.0 117 18 162/112 95 Room Air 09/05/16 05:37 98.2 09/05/16 04:00 98.2 112 20 150/87 96 Room Air 09/05/16 00:00 98.1 118 20 123/95 97 Room Air 09/04/16 22:57 98.1 09/04/16 21:00 122 103/71 09/04/16 20:00 98.1 122 20 103/71 97 Room Air 09/04/16 17:40 Room Air 09/04/16 17:34 Room Air 09/04/16 16:00 98.1 131 12 129/68 100 Room Air Intake and Output 09/04/16 09/05/16 19:00 07:00 Intake Total 800 ml Balance 800 ml Intake Oral 800 ml # Voids 1 Height (Feet): 5 Height (Inches): 10.00 Weight (Pounds): 135 General Appearance: no apparent distress, alert Cardiovascular: normal rate Respiratory/Chest: normal breath sounds, no respiratory distress Abdominal Exam: normal bowel sounds, non tender, soft Genitourinary/Rectal: normal rectal exam Extremities: normal range of motion, non-tender, normal inspection Ashleigh Marie N.P. Sep 05, 2016 13:29
[2016-09-05] MEDS: cefTRIAXone 1 GM in D5W 55 ML IVPB SCH (14:20)
--- NOTE | 2016-09-05 15:25 | Infectious Diseases Prog Note ---
Assessment/Plan Assessment/Plan ASSESSMENT: 30 y/o male with: // Recurrent pericarditis on IV vancomycin, rocephin prior to admission - h/o PCW, repeated pericardiocenteses @ [facility] // Negative HIV, hepatitis panel // Pancytopenia, afebrile - heme following // CVA // CAD // ESRD / HD // Chronic LLE DVT // VRE colonized // PCN allergy - tolerating rocephin // Full Code PLAN: - continue IV vancomycin, rocephin until mid september per outside providers - monitor CBC, temperatures - monitor BMP Subjective Allergies: Coded Allergies: PHENYTOIN SODIUM (Unverified Allergy, Intermediate, Hives, 12/01/11) PHENYTOIN SODIUM EXTENDED (Unverified Allergy, Intermediate, Hives, ) KETOROLAC (Verified Allergy, Mild, SOB, 06/28/11) METOCLOPRAMIDE (Verified Allergy, Mild, RASH, 06/28/11) NITROGLYCERIN (Verified Allergy, Mild, SEIZURES, 06/28/11) PENICILLINS (Verified Allergy, Mild, SOB, 06/28/11) PHENYTOIN (Verified Allergy, Mild, RASH, 06/28/11) ACETAMINOPHEN (Verified Allergy, Unknown, Shortness of Breath, 08/31/16) swelling throat, difficulty breathing HEPARIN (Verified Allergy, Unknown, Shortness of Breath, 08/28/16) HYDRALAZINE (Verified Allergy, Unknown, 08/28/16) HYDROCODONE (Verified Allergy, Unknown, Shortness of Breath, 08/31/16) swelling throat, difficulty breathing IBUPROFEN (Verified Allergy, Unknown, RASH, 06/28/11) IODINE (Verified Allergy, Unknown, SHOCK, 06/28/11) POLYSTYRENE SULFONATE (Verified Allergy, Unknown, RASH, 06/28/11) PROMETHAZINE (Verified Allergy, Unknown, RASH, 06/28/11) Subjective remains afebrile no new complaint path noted Objective Vital Signs Last 24 Hour Vital Signs Date Time Temp Pulse Resp B/P Pulse Ox O2 Delivery O2 Flow Rate FiO2 09/05/16 12:27 104 103/59 09/05/16 12:00 96.4 106 18 96/53 97 Room Air 09/05/16 09:01 150/87 09/05/16 09:01 150/87 09/05/16 08:59 112 150/87 09/05/16 08:00 97.0 117 18 162/112 95 Room Air 09/05/16 05:37 98.2 09/05/16 04:00 98.2 112 20 150/87 96 Room Air 09/05/16 00:00 98.1 118 20 123/95 97 Room Air 09/04/16 22:57 98.1 09/04/16 21:00 122 103/71 09/04/16 20:00 98.1 122 20 103/71 97 Room Air 09/04/16 17:40 Room Air 09/04/16 17:34 Room Air 09/04/16 16:00 98.1 131 12 129/68 100 Room Air Height (Feet): 5 Height (Inches): 10.00 Weight (Pounds): 135 General Appearance: no acute distress Respiratory/Chest: no respiratory distress Cardiovascular: normal rate, regular rhythm Abdomen: normal bowel sounds, soft, non tender, non distended Current Medications Medications (Trade) Dose Ordered Sig/Anant Route PRN Reason Start Time Stop Time Status Last Admin Dose Admin Acetaminophen (Tylenol) 650 mg Q4H PRN ORAL fever 08/31/16 18:04 09/30/16 18:03 Al Hydroxide/Mg Hydroxide (Mylanta II) 30 ml Q6H PRN ORAL dyspepsia 08/31/16 18:00 09/30/16 17:59 Ceftriaxone Sodium/Dextrose (Rocephin/D5W) 55 ml @ 110 mls/hr Q24H IVPB 09/01/16 13:00 09/08/16 12:59 09/05/16 14:20 Chlorhexidine Gluconate (Yessi-Hex 2%) 1 applic DAILY TOPIC 08/31/16 21:00 09/30/16 20:59 09/05/16 09:10 Clonidine HCl (Catapres) 0.1 mg Q4H PRN ORAL For SBP> 170 08/31/16 18:05 09/30/16 18:04 Clonidine HCl (Catapres) 0.2 mg DAILY ORAL 09/01/16 09:00 10/01/16 08:59 09/05/16 09:01 Dextrose (Dextrose 50%) STAT PRN IV Hypoglycemia 08/31/16 18:05 09/30/16 18:04 Diazepam (Valium) 5 mg Q4H PRN IV For Seizures 09/04/16 19:45 09/11/16 19:44 Diphenhydramine HCl (Benadryl) 25 mg Q6H PRN IVP Itching 08/31/16 18:06 09/30/16 18:05 09/05/16 08:57 Divalproex Sodium (Depakote) 250 mg Q12HR ORAL 08/31/16 21:00 09/30/16 20:59 09/05/16 08:59 Enalaprilat (Vasotec) 2.5 mg Q4H PRN IV SBP > 160 08/31/16 18:06 09/30/16 18:05 Epoetin Rajinder (Procrit (for ESRD on dialysis)) 10,000 units SUN-SUN-SUN SUBQ 09/01/16 21:00 10/01/16 20:59 09/04/16 21:20 Heparin Sodium (Porcine) (Heparin Sod 1000 units/ml 10ml) 2,000 unit ONCE PRN IV FOR HD USE ONLY 09/05/16 10:00 09/06/16 23:59 Labetalol HCl (Normodyne) 300 mg Q12HR ORAL 08/31/16 21:00 09/30/16 20:59 09/05/16 08:59 Levetiracetam (Keppra) 1,000 mg Q12HR ORAL 08/31/16 21:00 09/30/16 20:59 09/05/16 09:00 Lisinopril (Zestril) 10 mg DAILY ORAL 09/01/16 09:00 10/01/16 08:59 09/05/16 09:01 Lorazepam (Ativan 2mg/ml 1ml) 0.5 mg Q4H PRN IV For Anxiety 08/31/16 18:15 09/07/16 18:14 09/04/16 16:16 Morphine Sulfate 2 mg 2 mg Q3H PRN IVP For Severe Pain 09/04/16 23:30 09/11/16 23:29 09/05/16 12:28 Ondansetron HCl (Zofran) 4 mg Q6H PRN IVP Nausea & Vomiting 08/31/16 18:13 09/30/16 18:12 09/04/16 19:27 Pantoprazole (Protonix) 40 mg DAILY IVP 09/01/16 09:00 10/01/16 08:59 09/05/16 08:55 Polyethylene Glycol (Miralax) 17 gm HSPRN PRN ORAL Constipation 08/31/16 18:13 09/30/16 18:12 Sodium Chloride (Sodium Chloride 1000ml bag) 1,000 ml @ 500 mls/hr Q2H PRN IVLG sbp<90 during hd 09/05/16 10:00 09/06/16 23:59 Sucralfate (Carafate) 1 gm FOUR TIMES A DAY ORAL 09/03/16 18:00 10/03/16 17:59 09/05/16 09:00 Vancomycin HCl (Vanco rx to dose) 1 ea DAILY PRN MISC Per rx protocol 08/31/16 18:14 09/30/16 18:13 Zolpidem Tartrate (Ambien) 5 mg HSPRN PRN ORAL Insomnia 08/31/16 20:30 09/30/16 20:29 SONJA ASTORGA Sep 05, 2016 15:25
--- NOTE | 2016-09-05 17:06 | Neurology Progress Note ---
Interim History Interim History ROS Limited/Unobtainable: No Objective Physical Exam Last Vital Signs Date Time Temp Pulse Resp B/P Pulse Ox O2 Delivery O2 Flow Rate FiO2 09/05/16 15:50 95.1 102 18 132/79 95 Room Air 09/01/16 13:10 8.0 Impression/Recommendations Status: stable Recommendations # [id number] PIPPA KOHLER Sep 05, 2016 17:06
--- NOTE | 2016-09-05 17:14 | Neurology Progress Note ---
Interim History Interim History ROS Limited/Unobtainable: No Objective Physical Exam Last Vital Signs Date Time Temp Pulse Resp B/P Pulse Ox O2 Delivery O2 Flow Rate FiO2 09/05/16 15:50 95.1 102 18 132/79 95 Room Air 09/01/16 13:10 8.0 Impression/Recommendations Status: stable Recommendations # [id number] PIPPA KOHLER Sep 05, 2016 17:14
[2016-09-05] MEDS: Phenytoin 100mg cap ORAL SCH ×2 (17:58→22:00)
--- NOTE | 2016-09-05 17:59 | General Progress Note ---
Assessment/Plan Assessment/Plan 1. Pancytopenia especially secondary to underlying inflammatory process. --> counts have improved, no need for bone marrow biopsy --> monitor labs --> hgb goal above 7, transfuse prn # Anemia of GI bleed --> GI following, s/p egd and biospy of gastric lesion, the lesion is a blood clot 2. History of CVA. He had been on aspirin before. 3. End-stage renal disease. 4. Hemodialysis. Nephrology service management. 5. Chest pain, non-specific. 6. History of pericarditis. --> on jail abx 7. HIV and Hepatitis panels ordered. --> both are negative 8. Elevated CEA. Tumor marker elevated. 9. Uncontrolled hypertension --> is now better controlled Subjective Constitutional: Reports: no symptoms HEENT: Reports: no symptoms Respiratory: Reports: no symptoms Gastrointestinal/Abdominal: Reports: no symptoms Neurologic/Psychiatric: Reports: no symptoms Endocrine: Reports: no symptoms Hematologic/Lymphatic: Reports: anemia Allergies: Coded Allergies: PHENYTOIN SODIUM (Unverified Allergy, Intermediate, Hives, 12/01/11) PHENYTOIN SODIUM EXTENDED (Unverified Allergy, Intermediate, Hives, ) KETOROLAC (Verified Allergy, Mild, SOB, 06/28/11) METOCLOPRAMIDE (Verified Allergy, Mild, RASH, 06/28/11) NITROGLYCERIN (Verified Allergy, Mild, SEIZURES, 06/28/11) PENICILLINS (Verified Allergy, Mild, SOB, 06/28/11) PHENYTOIN (Verified Allergy, Mild, RASH, 06/28/11) ACETAMINOPHEN (Verified Allergy, Unknown, Shortness of Breath, 08/31/16) swelling throat, difficulty breathing HEPARIN (Verified Allergy, Unknown, Shortness of Breath, 08/28/16) HYDRALAZINE (Verified Allergy, Unknown, 08/28/16) HYDROCODONE (Verified Allergy, Unknown, Shortness of Breath, 08/31/16) swelling throat, difficulty breathing IBUPROFEN (Verified Allergy, Unknown, RASH, 06/28/11) IODINE (Verified Allergy, Unknown, SHOCK, 06/28/11) POLYSTYRENE SULFONATE (Verified Allergy, Unknown, RASH, 06/28/11) PROMETHAZINE (Verified Allergy, Unknown, RASH, 06/28/11) Subjective path report has been reviewed, no sig findings Objective Last 24 Hour Vital Signs Date Time Temp Pulse Resp B/P Pulse Ox O2 Delivery O2 Flow Rate FiO2 09/05/16 15:50 95.1 102 18 132/79 95 Room Air 09/05/16 12:27 104 103/59 09/05/16 12:00 96.4 106 18 96/53 97 Room Air 09/05/16 09:01 150/87 09/05/16 09:01 150/87 09/05/16 08:59 112 150/87 09/05/16 08:00 97.0 117 18 162/112 95 Room Air 09/05/16 05:37 98.2 09/05/16 04:00 98.2 112 20 150/87 96 Room Air 09/05/16 00:00 98.1 118 20 123/95 97 Room Air 09/04/16 22:57 98.1 09/04/16 21:00 122 103/71 09/04/16 20:00 98.1 122 20 103/71 97 Room Air Intake and Output 09/04/16 09/05/16 19:00 07:00 Intake Total 800 ml Balance 800 ml Intake Oral 800 ml # Voids 1 Height (Feet): 5 Height (Inches): 10.00 Weight (Pounds): 135 General Appearance: no apparent distress EENT: normal ENT inspection Neck: normal alignment Cardiovascular: normal peripheral pulses Respiratory/Chest: chest wall non-tender Abdomen: non tender Edema: no edema noted Pedal (L), no edema noted Pedal (R) Neurologic: no motor/sensory deficits Skin: warm/dry Chavo Alfaro Sep 05, 2016 17:59
--- NOTE | 2016-09-05 18:52 | Pulmonology Progress Note ---
Assessment/Plan Problems: (1) Uncontrolled hypertension (2) Pericarditis (3) Chest pain (4) Anemia (5) Pancytopenia (6) ESRF (end stage renal failure) (7) Left hemiplegia (8) History of CVA (cerebrovascular accident) Assessment/Plan neuro consult decrease amount of narcotics because of episodes of nauseastill has hematemesis check h/h, stable despite the claim of hemoptysis HD tomorrow longterm abx for pericarditis dc home tomorrow after HD Subjective ROS Limited/Unobtainable: No Constitutional: Reports: no symptoms HEENT: Repors: no symptoms Allergies: Coded Allergies: PHENYTOIN SODIUM (Unverified Allergy, Intermediate, Hives, 12/01/11) PHENYTOIN SODIUM EXTENDED (Unverified Allergy, Intermediate, Hives, ) KETOROLAC (Verified Allergy, Mild, SOB, 06/28/11) METOCLOPRAMIDE (Verified Allergy, Mild, RASH, 06/28/11) NITROGLYCERIN (Verified Allergy, Mild, SEIZURES, 06/28/11) PENICILLINS (Verified Allergy, Mild, SOB, 06/28/11) PHENYTOIN (Verified Allergy, Mild, RASH, 06/28/11) ACETAMINOPHEN (Verified Allergy, Unknown, Shortness of Breath, 08/31/16) swelling throat, difficulty breathing HEPARIN (Verified Allergy, Unknown, Shortness of Breath, 08/28/16) HYDRALAZINE (Verified Allergy, Unknown, 08/28/16) HYDROCODONE (Verified Allergy, Unknown, Shortness of Breath, 08/31/16) swelling throat, difficulty breathing IBUPROFEN (Verified Allergy, Unknown, RASH, 06/28/11) IODINE (Verified Allergy, Unknown, SHOCK, 06/28/11) POLYSTYRENE SULFONATE (Verified Allergy, Unknown, RASH, 06/28/11) PROMETHAZINE (Verified Allergy, Unknown, RASH, 06/28/11) Objective Last 24 Hour Vital Signs Date Time Temp Pulse Resp B/P Pulse Ox O2 Delivery O2 Flow Rate FiO2 09/05/16 15:50 95.1 102 18 132/79 95 Room Air 09/05/16 12:27 104 103/59 09/05/16 12:00 96.4 106 18 96/53 97 Room Air 09/05/16 09:01 150/87 09/05/16 09:01 150/87 09/05/16 08:59 112 150/87 09/05/16 08:00 97.0 117 18 162/112 95 Room Air 09/05/16 05:37 98.2 09/05/16 04:00 98.2 112 20 150/87 96 Room Air 09/05/16 00:00 98.1 118 20 123/95 97 Room Air 09/04/16 22:57 98.1 09/04/16 21:00 122 103/71 09/04/16 20:00 98.1 122 20 103/71 97 Room Air Intake and Output 09/04/16 09/05/16 19:00 07:00 Intake Total 800 ml Balance 800 ml Intake Oral 800 ml # Voids 1 Objective General Appearance: cachectic HEENT: normocephalic Respiratory/Chest: chest wall non-tender, lungs clear Breasts: no masses Cardiovascular: normal peripheral pulses Abdomen: normal bowel sounds, soft, non tender Genitourinary: normal external genitalia Skin: no rash Current Medications Medications (Trade) Dose Ordered Sig/Anant Route PRN Reason Start Time Stop Time Status Last Admin Dose Admin Acetaminophen (Tylenol) 650 mg Q4H PRN ORAL fever 08/31/16 18:04 09/30/16 18:03 Al Hydroxide/Mg Hydroxide (Mylanta II) 30 ml Q6H PRN ORAL dyspepsia 08/31/16 18:00 09/30/16 17:59 Ceftriaxone Sodium/Dextrose (Rocephin/D5W) 55 ml @ 110 mls/hr Q24H IVPB 09/01/16 13:00 09/08/16 12:59 09/05/16 14:20 Chlorhexidine Gluconate (Yessi-Hex 2%) 1 applic DAILY TOPIC 08/31/16 21:00 09/30/16 20:59 09/05/16 09:10 Clonidine HCl (Catapres) 0.1 mg Q4H PRN ORAL For SBP> 170 08/31/16 18:05 09/30/16 18:04 Clonidine HCl (Catapres) 0.2 mg DAILY ORAL 09/01/16 09:00 10/01/16 08:59 09/05/16 09:01 Dextrose (Dextrose 50%) STAT PRN IV Hypoglycemia 08/31/16 18:05 09/30/16 18:04 Diazepam (Valium) 5 mg Q4H PRN IV For Seizures 09/04/16 19:45 09/11/16 19:44 Diphenhydramine HCl (Benadryl) 25 mg Q6H PRN IVP Itching 08/31/16 18:06 09/30/16 18:05 09/05/16 15:44 Divalproex Sodium (Depakote) 250 mg Q12HR ORAL 08/31/16 21:00 09/30/16 20:59 09/05/16 08:59 Enalaprilat (Vasotec) 2.5 mg Q4H PRN IV SBP > 160 08/31/16 18:06 09/30/16 18:05 Epoetin Rajinder (Procrit (for ESRD on dialysis)) 10,000 units SUN-SUN-SUN SUBQ 09/01/16 21:00 10/01/16 20:59 09/04/16 21:20 Heparin Sodium (Porcine) (Heparin Sod 1000 units/ml 10ml) 2,000 unit ONCE PRN IV FOR HD USE ONLY 09/05/16 10:00 09/06/16 23:59 Labetalol HCl (Normodyne) 300 mg Q12HR ORAL 08/31/16 21:00 09/30/16 20:59 09/05/16 08:59 Levetiracetam (Keppra) 1,000 mg Q12HR ORAL 09/05/16 21:00 10/05/16 20:59 Lisinopril (Zestril) 10 mg DAILY ORAL 09/01/16 09:00 10/01/16 08:59 09/05/16 09:01 Lorazepam (Ativan 2mg/ml 1ml) 0.5 mg Q4H PRN IV For Anxiety 08/31/16 18:15 09/07/16 18:14 09/04/16 16:16 Morphine Sulfate 2 mg 2 mg Q3H PRN IVP For Severe Pain 09/04/16 23:30 09/11/16 23:29 09/05/16 15:37 Ondansetron HCl (Zofran) 4 mg Q6H PRN IVP Nausea & Vomiting 08/31/16 18:13 09/30/16 18:12 09/04/16 19:27 Pantoprazole (Protonix) 40 mg DAILY IVP 09/01/16 09:00 10/01/16 08:59 09/05/16 08:55 Phenytoin (Dilantin) 100 mg EVERY 8 HOURS ORAL 09/05/16 17:30 10/05/16 17:29 09/05/16 17:58 Polyethylene Glycol (Miralax) 17 gm HSPRN PRN ORAL Constipation 08/31/16 18:13 09/30/16 18:12 Sodium Chloride (Sodium Chloride 1000ml bag) 1,000 ml @ 500 mls/hr Q2H PRN IVLG sbp<90 during hd 09/05/16 10:00 09/06/16 23:59 Sucralfate (Carafate) 1 gm FOUR TIMES A DAY ORAL 09/03/16 18:00 10/03/16 17:59 09/05/16 09:00 Vancomycin HCl (Vanco rx to dose) 1 ea DAILY PRN MISC Per rx protocol 08/31/16 18:14 09/30/16 18:13 Zolpidem Tartrate (Ambien) 5 mg HSPRN PRN ORAL Insomnia 08/31/16 20:30 09/30/16 20:29 BETHEL PACK Sep 05, 2016 18:52
[2016-09-05 20:05] LABS: ALANINE AMINOTRANSFERASE 6 U/L (3-41); ALBUMIN/GLOBULIN RATIO 1.3 (1.0-2.7); ANION GAP 19 (5-15); ASPARTATE AMINO TRANSFERASE 14 U/L (5-40); CALCIUM 8.5 mg/dL (8.6-10.2); CARBON DIOXIDE 27 mEQ/L (20-30); CHLORIDE 92 mEQ/L (98-107); CREATININE 6.8 mg/dL (0.7-1.2); GLOMERULAR FILTRATION RATE 11.6 mL/min (>60); HEMOLYSIS 15; POTASSIUM 3.9 mEQ/L (3.4-4.9); SODIUM 138 mEQ/L (135-145); TOTAL PROTEIN 5.3 g/dL (6.6-8.7)
[2016-09-05 20:14] LABS: EOSINOPHILS % (AUTO) 0.7 % (0.0-3.0); LYMPHOCYTES % (AUTO) 14.7 % (20.0-45.0); MEAN CORPUSCULAR HEMOGLOBIN 32.8 PG (27.0-31.0); MEAN CORPUSCULAR HGB CONC 33.8 G/DL (32.0-36.0); MEAN CORPUSCULAR VOLUME 97 FL (80-99); MEAN PLATELET VOLUME 6.2 FL (6.5-10.1); NEUTROPHILS % (AUTO) 64.8 % (45.0-75.0); PLATELET COUNT 118 K/UL (150-450); RED BLOOD COUNT 2.56 M/UL (4.70-6.10); RED CELL DISTRIBUTION WIDTH 17.8 % (11.6-14.8); WHITE BLOOD COUNT 4.2 K/UL (4.8-10.8)
[2016-09-06] VITALS (7 sets, daily range): BP systolic 109–136; BP diastolic 63–90
[2016-09-06] MEDS: Morphine Sulfate 2mg/ml Inj IVP PRN ×8 (00:07→23:41)
[2016-09-06] MEDS: DiphenhydrAMINE 50mg/ml Inj IVP PRN ×4 (00:08→20:00)
--- NOTE | 2016-09-06 02:45 | Consultation ---
DATE OF CONSULTATION: 09/05/2016 NEUROLOGICAL CONSULTATION REQUESTING PHYSICIAN: Kaylah Hayward M.D. HISTORY OF PRESENT ILLNESS: This is a 30-year-old male with a history of chronic seizure disorder, refractory, treated with a vagal nerve stimulator as well as maintained on three anticonvulsants such as Depakote, Dilantin, and Keppra. With this, the patient who has multiple other medical issues developed exacerbation yesterday during hemodialysis he had an episode, which appears to be generalized clonic seizure. Neuro consult requested to assist with the management of this complicated patient. Now that the patient was brought to this facility after a sudden onset of chest pain, shortness of breath, pain radiating to the neck and left shoulder. He was brought to the hospital. His assessment where he reported history of pericarditis, central line in place. He had evidence of pancytopenia with blood work including WBC 4.0, hemoglobin 9.1, hematocrit 27.5, and platelets 99,000. In addition, normal coagulation, but chemistry panel with elevated BUN of 37 and creatinine 4.4. Alkaline phosphatase 2504. Normal troponins. Low albumin 3.1. Subsequently, B12, folate, and TSH were tested and this was normal. Toxicology panel was unremarkable. Imaging studies included chest x-ray revealing cardiomegaly, but no evidence of cardiomegaly. Venous duplex, no evidence of thrombi of both lower extremities. Abdominal ultrasound revealed normal visualization of kidneys. Nonspecific hepatic echogenicity. No mass lesions noted. The patient continued treatment with vancomycin, IV fluids, and hemodialysis, treated for severe malnutrition3. 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 History of end-stage renal disease, on hemodialysis. History of chronic anemia and upper GI bleeding. He has a history of pericarditis and cachexia. ALLERGIES: The patient has multiple allergies including intravenous phenytoin, but also ketorolac, metoclopramide, nitroglycerin, penicillin, Tylenol, heparin, hydralazine, hydrocodone, ibuprofen, iodine, promethazine, and Polysporin. TREATMENT: Prior to admission included phenytoin 300 mg daily, lisinopril, Keppra 1000 mg b.i.d., labetalol, Depakote 250 mg b.i.d., and clonidine. FAMILY HISTORY: Noncontributory. SOCIAL HISTORY: Lives at home with the family. Denies alcohol or drug abuse. He is wheelchair bound. REVIEW OF SYMPTOMS: Generalized weakness, but denies headache or dizziness. No chest pain. No palpitation. Aware of having previous strokes and a vagal nerve stimulator placement. PHYSICAL EXAMINATION: GENERAL: Cachectic, ill-appearing, male lying in bed, watching TV. VITAL SIGNS: His blood pressure 103/59, heart rate of 104, and temperature 95.1. HEENT: Head, normocephalic. There is no evidence of trauma. NECK: Rigid in all directions. There is a VNS stimulator in place. EXTREMITIES: Deformed left upper and left lower extremity. Peripheral pulses 1+ symmetric. MENTAL STATUS: He is full alert and oriented x3 with no evidence of aphasia or apraxia. Speech slow. CRANIAL NERVE II: Pupils 3 mm responding to light and accommodation. There is a significant exophthalmos, slight exotropia on the right. Extraocular movement slightly limited in vertical and horizontal directions. No nystagmus. CRANIAL NERVE V: Normal corneal responses. CRANIAL NERVE VII: No gross asymmetry. CRANIAL NERVE VIII: Normal hearing. CRANIAL NERVES IX THROUGH XII: Tongue is in midline. Symmetric palate elevation. MOTOR EXAMINATION: Severely contracted left wrist hand. Limited range of motion left shoulder. Limited range of motion both knees, more on the left with limited extension both legs. Peripheral pulses 1+ symmetric. MENTAL STATUS: He is fully alert and oriented x3. Deep tendon reflexes depressed bilaterally. Plantar responses flexor on the right and extensor on the left. Gait not tested. IMPRESSION: 1. Chronic seizure disorder, exacerbation. 2. Vagal nerve stimulator, probably nonfunctioning. 3. Exophthalmos, probably dysthyroid state. 4. Status post right-sided hemorrhagic stroke with a left hemiparesis. 5. Hypertension, poor control. 6. End-stage renal disease, on hemodialysis. 7. Hyperparathyroidism. 8. Anemia and thrombocytopenia. RECOMMENDATION: The patient indicate that he had severe side effects to IV Dilantin, but nevertheless he is still able to take Dilantin p.o. We will obtain blood levels of Dilantin, but also Depakote and Keppra to adjust the doses appropriately, which is difficult task in the setting of end-stage renal disease, on hemodialysis. He has vagal nerve stimulator to be tested in the appropriate institution such as [facility] or [facility]. We will obtain baseline CT of the brain and EEG. Thank you for allowing me to see this interesting patient in neurological consultation. Luke Mathis M.D. DR: MERRITT JOB#: [id number] CC:
[2016-09-06] MEDS: Phenytoin 100mg cap ORAL SCH ×3 (06:00→21:14)
--- NOTE | 2016-09-06 08:39 | Diagnostic Imaging Report ---
Indications: Altered mental status Technique: Spiral acquisitions obtained through the brain. Angled axial and coronal 5 x 5 mm slices were reconstructed. Total dose length product 1464 mGycm. CTDI vol(s) 70 mGy. Dose reduction achieved using automated exposure control Comparison: 06/28/2011 Findings: Again demonstrated is a large area of encephalomalacia involving the high right frontal, parietal, and occipital lobes. This results in ex vacuo dilatation of the body of right lateral ventricle. There is progressive cerebral cortical volume loss in the convexities and cerebellum bilaterally. No acute hemorrhage or edema. No mass effect or midline shift. There is an old left cerebellar cortical infarct again demonstrated. Interim development of appearance to the calvarium, with thickening of the calvarium, sclerosis of the diploic space and more focal areas of osteosclerosis. This also involves the facial bones. Impression: Negative for acute intracranial bleed or mass effect Progressive cerebral volume loss, since prior study of 2011 Old right sided encephalomalacia Diffuse osteosclerotic change. This is new since 2011. Findings may be due to Dilantin effect or could indicate renal osteodystrophy or other metabolic disorder. This agrees with the preliminary interpretation provided overnight by Dr. Ogden The CT scanner at [facility] is accredited by the [employer] and the scans are performed using protocols designed to limit radiation exposure to as low as reasonably achievable to attain images of sufficient resolution adequate for diagnostic evaluation.
[2016-09-06] MEDS: cloNIDine 0.2mg Tab ORAL SCH (09:00)
[2016-09-06] MEDS: Lisinopril 10mg tab ORAL SCH (09:00)
[2016-09-06] MEDS: Dyna-Hex 2% Top Sol 8oz TOPIC SCH (10:04)
[2016-09-06] MEDS: Sucralfate 1gm tab ORAL SCH ×4 (10:05→20:00)
[2016-09-06] MEDS: Pantoprazole Inj IVP SCH (10:05)
[2016-09-06] MEDS ORDERED: NS 275ml ONE (10:09)
[2016-09-06] MEDS ORDERED: Tubing IV Secondary IV ONE (10:09)
--- NOTE | 2016-09-06 11:38 | GI Progress Note ---
Assessment/Plan Problems: (1) Alkaline phosphatase elevation ICD Codes: R74.8 - Abnormal levels of other serum enzymes SNOMED: 223752379 (2) Severe malnutrition ICD Codes: E43 - Unspecified severe protein-calorie malnutrition SNOMED: 18279512 (3) Pancytopenia ICD Codes: D61.818 - Other pancytopenia SNOMED: 269105553 Status: stable Status Narrative Discussed with Dr. Sandoval. Assessment/Plan elevated CEA 8.6 HIV negative - N/V - UGIB - HH - Midbody gastric lesion, biopsied - contractures - Anemia - Renal failure Recommendations - follow H&H >> stable - PPI - Elevate HOB - Carafate - PPI - f/u path Subjective Subjective generalized weakness Objective Last 24 Hour Vital Signs Date Time Temp Pulse Resp B/P Pulse Ox O2 Delivery O2 Flow Rate FiO2 09/06/16 10:36 97.0 09/06/16 09:00 109/63 09/06/16 09:00 98 109/63 09/06/16 09:00 109/63 09/06/16 08:00 97.0 98 19 109/63 98 Room Air 09/06/16 03:55 97.9 104 18 126/74 100 Room Air 09/06/16 00:38 104 94 Room Air 09/06/16 00:00 98.2 18 136/90 90 Room Air 09/05/16 21:00 102 104/64 09/05/16 20:00 99.5 102 18 104/64 92 Room Air 09/05/16 15:50 95.1 102 18 132/79 95 Room Air 09/05/16 12:27 104 103/59 09/05/16 12:00 96.4 106 18 96/53 97 Room Air Intake and Output 09/05/16 09/06/16 19:00 07:00 Intake Total 960 ml 360 ml Balance 960 ml 360 ml Intake Oral 960 ml 360 ml Laboratory Tests Test 09/05/16 19:15 09/05/16 19:48 Sodium Level 138 mEQ/L (135-145) Potassium Level 3.9 mEQ/L (3.4-4.9) Chloride Level 92 mEQ/L (98-107) L Carbon Dioxide Level 27 mEQ/L (20-30) Anion Gap 19 (5-15) H Blood Urea Nitrogen 71 mg/dL (7-23) H Creatinine 6.8 mg/dL (0.7-1.2) H Estimat Glomerular Filtration Rate 11.6 mL/min (>60) Glucose Level 126 mg/dL (74-106) H Calcium Level 8.5 mg/dL (8.6-10.2) L Total Bilirubin < 0.2 mg/dL (0.0-1.2) Aspartate Amino Transf (AST/SGOT) 14 U/L (5-40) Alanine Aminotransferase (ALT/SGPT) 6 U/L (3-41) Alkaline Phosphatase 2133 U/L (40-129) H Total Protein 5.3 g/dL (6.6-8.7) L Albumin 3.0 g/dL (3.5-5.2) L Globulin 2.3 g/dL Albumin/Globulin Ratio 1.3 (1.0-2.7) Valproic Acid (Depakene) Level < 3 ug/mL (50-100) L Levetiracetam (Keppra) Level Pending White Blood Count 4.2 K/UL (4.8-10.8) L Red Blood Count 2.56 M/UL (4.70-6.10) L Hemoglobin 8.4 G/DL (14.2-18.0) L Hematocrit 24.9 % (42.0-52.0) L Mean Corpuscular Volume 97 FL (80-99) Mean Corpuscular Hemoglobin 32.8 PG (27.0-31.0) H Mean Corpuscular Hemoglobin Concent 33.8 G/DL (32.0-36.0) Red Cell Distribution Width 17.8 % (11.6-14.8) H Platelet Count 118 K/UL (150-450) L Mean Platelet Volume 6.2 FL (6.5-10.1) L Neutrophils (%) (Auto) 64.8 % (45.0-75.0) Lymphocytes (%) (Auto) 14.7 % (20.0-45.0) L Monocytes (%) (Auto) 18.0 % (1.0-10.0) H Eosinophils (%) (Auto) 0.7 % (0.0-3.0) Basophils (%) (Auto) 2.0 % (0.0-2.0) Height (Feet): 5 Height (Inches): 10.00 Weight (Pounds): 135 General Appearance: no apparent distress, alert Cardiovascular: normal rate Respiratory/Chest: normal breath sounds, no respiratory distress Abdominal Exam: normal bowel sounds, non tender, soft Ashleigh Marie N.P. Sep 06, 2016 11:38
--- NOTE | 2016-09-06 12:38 | Infectious Diseases Prog Note ---
Assessment/Plan Assessment/Plan ASSESSMENT: 30 y/o male with: // Recurrent pericarditis on IV vancomycin, rocephin prior to admission - h/o PCW, repeated pericardiocenteses @ [facility] // Negative HIV, hepatitis panel // Pancytopenia, afebrile - heme following // Breakthrough seizure, known seizure disorder - CT Head: Negative for acute intracranial bleed or mass effect. Progressive cerebral volume loss. Old right sided encephalomalacia // CVA // CAD // ESRD / HD // Chronic LLE DVT // VRE colonized // PCN allergy - tolerating rocephin // Full Code PLAN: - continue IV vancomycin, rocephin until mid september per outside providers - monitor CBC, temperatures - monitor BMP - seizure precautions Subjective Allergies: Coded Allergies: PHENYTOIN SODIUM (Unverified Allergy, Intermediate, Hives, 12/01/11) PHENYTOIN SODIUM EXTENDED (Unverified Allergy, Intermediate, Hives, ) KETOROLAC (Verified Allergy, Mild, SOB, 06/28/11) METOCLOPRAMIDE (Verified Allergy, Mild, RASH, 06/28/11) NITROGLYCERIN (Verified Allergy, Mild, SEIZURES, 06/28/11) PENICILLINS (Verified Allergy, Mild, SOB, 06/28/11) PHENYTOIN (Verified Allergy, Mild, RASH, 06/28/11) ACETAMINOPHEN (Verified Allergy, Unknown, Shortness of Breath, 08/31/16) swelling throat, difficulty breathing HEPARIN (Verified Allergy, Unknown, Shortness of Breath, 08/28/16) HYDRALAZINE (Verified Allergy, Unknown, 08/28/16) HYDROCODONE (Verified Allergy, Unknown, Shortness of Breath, 08/31/16) swelling throat, difficulty breathing IBUPROFEN (Verified Allergy, Unknown, RASH, 06/28/11) IODINE (Verified Allergy, Unknown, SHOCK, 06/28/11) POLYSTYRENE SULFONATE (Verified Allergy, Unknown, RASH, 06/28/11) PROMETHAZINE (Verified Allergy, Unknown, RASH, 06/28/11) Subjective remains afebrile pt had breakthrough seizure CT head NAF Objective Vital Signs Last 24 Hour Vital Signs Date Time Temp Pulse Resp B/P Pulse Ox O2 Delivery O2 Flow Rate FiO2 09/06/16 10:36 97.0 09/06/16 09:00 109/63 09/06/16 09:00 98 109/63 09/06/16 09:00 109/63 09/06/16 08:00 97.0 98 19 109/63 98 Room Air 09/06/16 03:55 97.9 104 18 126/74 100 Room Air 09/06/16 00:38 104 94 Room Air 09/06/16 00:00 98.2 18 136/90 90 Room Air 09/05/16 21:00 102 104/64 09/05/16 20:00 99.5 102 18 104/64 92 Room Air 09/05/16 15:50 95.1 102 18 132/79 95 Room Air Height (Feet): 5 Height (Inches): 10.00 Weight (Pounds): 135 General Appearance: no acute distress Respiratory/Chest: no respiratory distress Cardiovascular: normal rate, regular rhythm Abdomen: normal bowel sounds, soft, non tender, non distended Laboratory Tests Test 09/05/16 19:15 09/05/16 19:48 Sodium Level 138 mEQ/L (135-145) Potassium Level 3.9 mEQ/L (3.4-4.9) Chloride Level 92 mEQ/L (98-107) L Carbon Dioxide Level 27 mEQ/L (20-30) Anion Gap 19 (5-15) H Blood Urea Nitrogen 71 mg/dL (7-23) H Creatinine 6.8 mg/dL (0.7-1.2) H Estimat Glomerular Filtration Rate 11.6 mL/min (>60) Glucose Level 126 mg/dL (74-106) H Calcium Level 8.5 mg/dL (8.6-10.2) L Total Bilirubin < 0.2 mg/dL (0.0-1.2) Aspartate Amino Transf (AST/SGOT) 14 U/L (5-40) Alanine Aminotransferase (ALT/SGPT) 6 U/L (3-41) Alkaline Phosphatase 2133 U/L (40-129) H Total Protein 5.3 g/dL (6.6-8.7) L Albumin 3.0 g/dL (3.5-5.2) L Globulin 2.3 g/dL Albumin/Globulin Ratio 1.3 (1.0-2.7) Valproic Acid (Depakene) Level < 3 ug/mL (50-100) L Levetiracetam (Keppra) Level Pending White Blood Count 4.2 K/UL (4.8-10.8) L Red Blood Count 2.56 M/UL (4.70-6.10) L Hemoglobin 8.4 G/DL (14.2-18.0) L Hematocrit 24.9 % (42.0-52.0) L Mean Corpuscular Volume 97 FL (80-99) Mean Corpuscular Hemoglobin 32.8 PG (27.0-31.0) H Mean Corpuscular Hemoglobin Concent 33.8 G/DL (32.0-36.0) Red Cell Distribution Width 17.8 % (11.6-14.8) H Platelet Count 118 K/UL (150-450) L Mean Platelet Volume 6.2 FL (6.5-10.1) L Neutrophils (%) (Auto) 64.8 % (45.0-75.0) Lymphocytes (%) (Auto) 14.7 % (20.0-45.0) L Monocytes (%) (Auto) 18.0 % (1.0-10.0) H Eosinophils (%) (Auto) 0.7 % (0.0-3.0) Basophils (%) (Auto) 2.0 % (0.0-2.0) Current Medications Medications (Trade) Dose Ordered Sig/Anant Route PRN Reason Start Time Stop Time Status Last Admin Dose Admin Acetaminophen (Tylenol) 650 mg Q4H PRN ORAL fever 08/31/16 18:04 09/30/16 18:03 Al Hydroxide/Mg Hydroxide (Mylanta II) 30 ml Q6H PRN ORAL dyspepsia 08/31/16 18:00 09/30/16 17:59 Ceftriaxone Sodium/Dextrose (Rocephin/D5W) 55 ml @ 110 mls/hr Q24H IVPB 09/01/16 13:00 09/08/16 12:59 09/05/16 14:20 Chlorhexidine Gluconate (Yessi-Hex 2%) 1 applic DAILY TOPIC 08/31/16 21:00 09/30/16 20:59 09/06/16 10:04 Clonidine HCl (Catapres) 0.1 mg Q4H PRN ORAL For SBP> 170 08/31/16 18:05 09/30/16 18:04 Clonidine HCl (Catapres) 0.2 mg DAILY ORAL 09/01/16 09:00 10/01/16 08:59 09/05/16 09:01 Dextrose (Dextrose 50%) STAT PRN IV Hypoglycemia 08/31/16 18:05 09/30/16 18:04 Diazepam 5 mg 5 mg Q4H PRN IV For Seizures 09/04/16 19:45 09/11/16 19:44 Diphenhydramine HCl (Benadryl) 25 mg Q6H PRN IVP Itching 08/31/16 18:06 09/30/16 18:05 09/06/16 06:11 Divalproex Sodium (Depakote) 250 mg Q12HR ORAL 08/31/16 21:00 09/30/16 20:59 09/06/16 10:04 Enalaprilat (Vasotec) 2.5 mg Q4H PRN IV SBP > 160 08/31/16 18:06 09/30/16 18:05 Epoetin Rajinder (Procrit (for ESRD on dialysis)) 10,000 units SUN-SUN-SUN SUBQ 09/01/16 21:00 10/01/16 20:59 09/04/16 21:20 Heparin Sodium (Porcine) (Heparin Sod 1000 units/ml 10ml) 2,000 unit ONCE PRN IV FOR HD USE ONLY 09/05/16 10:00 09/06/16 23:59 Labetalol HCl (Normodyne) 300 mg Q12HR ORAL 08/31/16 21:00 09/30/16 20:59 09/05/16 08:59 Levetiracetam (Keppra) 1,000 mg Q12HR ORAL 09/05/16 21:00 10/05/16 20:59 09/06/16 10:05 Lisinopril (Zestril) 10 mg DAILY ORAL 09/01/16 09:00 10/01/16 08:59 09/05/16 09:01 Lorazepam (Ativan 2mg/ml 1ml) 0.5 mg Q4H PRN IV For Anxiety 08/31/16 18:15 09/07/16 18:14 09/04/16 16:16 Morphine Sulfate (Morphine Sulfate) 1 mg Q3H PRN IVP For Severe Pain 09/05/16 20:30 09/12/16 20:29 09/06/16 10:06 Ondansetron HCl (Zofran) 4 mg Q6H PRN IVP Nausea & Vomiting 08/31/16 18:13 09/30/16 18:12 09/04/16 19:27 Pantoprazole (Protonix) 40 mg DAILY IVP 09/01/16 09:00 10/01/16 08:59 09/06/16 10:05 Phenytoin (Dilantin) 100 mg EVERY 8 HOURS ORAL 09/05/16 17:30 10/05/16 17:29 09/05/16 17:58 Polyethylene Glycol (Miralax) 17 gm HSPRN PRN ORAL Constipation 08/31/16 18:13 09/30/16 18:12 Sodium Chloride (Sodium Chloride 1000ml bag) 1,000 ml @ 500 mls/hr Q2H PRN IVLG sbp<90 during hd 09/05/16 10:00 09/06/16 23:59 Sucralfate (Carafate) 1 gm FOUR TIMES A DAY ORAL 09/03/16 18:00 10/03/16 17:59 09/06/16 10:05 Vancomycin HCl (Vanco rx to dose) 1 ea DAILY PRN MISC Per rx protocol 08/31/16 18:14 09/30/16 18:13 Zolpidem Tartrate (Ambien) 5 mg HSPRN PRN ORAL Insomnia 08/31/16 20:30 09/30/16 20:29 SONJA ASTORGA Sep 06, 2016 12:38
[2016-09-06] MEDS: cefTRIAXone 1 GM in D5W 55 ML IVPB SCH (13:33)
--- NOTE | 2016-09-06 16:24 | Nephrology Progress Note ---
Assessment/Plan Assessment 1. esrd on hd 2. seizure 3. htn 4. anemia Objective Objective Last 24 Hour Vital Signs Date Time Temp Pulse Resp B/P Pulse Ox O2 Delivery O2 Flow Rate FiO2 09/06/16 12:00 97.0 97 19 127/78 96 Room Air 09/06/16 10:36 97.0 09/06/16 09:00 109/63 09/06/16 09:00 98 109/63 09/06/16 09:00 109/63 09/06/16 08:00 97.0 98 19 109/63 98 Room Air 09/06/16 03:55 97.9 104 18 126/74 100 Room Air 09/06/16 00:38 104 94 Room Air 09/06/16 00:00 98.2 18 136/90 90 Room Air 09/05/16 21:00 102 104/64 09/05/16 20:00 99.5 102 18 104/64 92 Room Air Intake and Output 09/05/16 09/06/16 19:00 07:00 Intake Total 960 ml 360 ml Balance 960 ml 360 ml Intake Oral 960 ml 360 ml Laboratory Tests 09/05/16 19:15: Sodium Level 138, Potassium Level 3.9, Chloride Level 92L, Carbon Dioxide Level 27, Anion Gap 19H, Blood Urea Nitrogen 71H, Creatinine 6.8H, Estimat Glomerular Filtration Rate 11.6, Glucose Level 126H, Calcium Level 8.5L, Total Bilirubin < 0.2, Aspartate Amino Transf (AST/SGOT) 14, Alanine Aminotransferase (ALT/SGPT) 6 , Alkaline Phosphatase 2133H, Total Protein 5.3L, Albumin 3.0L, Globulin 2.3, Albumin/Globulin Ratio 1.3, Valproic Acid (Depakene) Level < 3L, Levetiracetam ( Keppra) Level [Pending] 09/05/16 19:48: White Blood Count 4.2L, Red Blood Count 2.56L, Hemoglobin 8.4L, Hematocrit 24.9L , Mean Corpuscular Volume 97, Mean Corpuscular Hemoglobin 32.8H, Mean Corpuscular Hemoglobin Concent 33.8, Red Cell Distribution Width 17.8H, Platelet Count 118L, Mean Platelet Volume 6.2L, Neutrophils (%) (Auto) 64.8, Lymphocytes (%) (Auto) 14.7L, Monocytes (%) (Auto) 18.0H, Eosinophils (%) (Auto ) 0.7, Basophils (%) (Auto) 2.0 Height (Feet): 5 Height (Inches): 10.00 Weight (Pounds): 135 SAMANTA GALARZA Sep 06, 2016 16:24
--- NOTE | 2016-09-06 16:40 | Nephrology Progress Note ---
Assessment/Plan Assessment 1. Acute exacerbations of seizure disorder ; checking dilantin 2. Vagal nerve stimulator, probably nonfunctioning. 3. ERSD on HD. 4. Status post right-sided hemorrhagic stroke with a left hemiparesis. 5. Hypertension, poor control. 6.Anemia of CKD . 7. Hyperparathyroidism. 8. Pancytopenia 9. Peg tube Plan Hd today dilantin levels f/u with neurology next HD on sunday Dc home after dialysis, d/w RN nto able to get him until late in the evening will dc in am Subjective ROS Limited/Unobtainable: Yes Interval Events/Complaints poor historian, confused even with his dialysis days, denies any symptoms Objective Objective Last 24 Hour Vital Signs Date Time Temp Pulse Resp B/P Pulse Ox O2 Delivery O2 Flow Rate FiO2 09/06/16 12:00 97.0 97 19 127/78 96 Room Air 09/06/16 10:36 97.0 09/06/16 09:00 109/63 09/06/16 09:00 98 109/63 09/06/16 09:00 109/63 09/06/16 08:00 97.0 98 19 109/63 98 Room Air 09/06/16 03:55 97.9 104 18 126/74 100 Room Air 09/06/16 00:38 104 94 Room Air 09/06/16 00:00 98.2 18 136/90 90 Room Air 09/05/16 21:00 102 104/64 09/05/16 20:00 99.5 102 18 104/64 92 Room Air Intake and Output 09/05/16 09/06/16 19:00 07:00 Intake Total 960 ml 360 ml Balance 960 ml 360 ml Intake Oral 960 ml 360 ml Laboratory Tests 09/05/16 19:15: Sodium Level 138, Potassium Level 3.9, Chloride Level 92L, Carbon Dioxide Level 27, Anion Gap 19H, Blood Urea Nitrogen 71H, Creatinine 6.8H, Estimat Glomerular Filtration Rate 11.6, Glucose Level 126H, Calcium Level 8.5L, Total Bilirubin < 0.2, Aspartate Amino Transf (AST/SGOT) 14, Alanine Aminotransferase (ALT/SGPT) 6 , Alkaline Phosphatase 2133H, Total Protein 5.3L, Albumin 3.0L, Globulin 2.3, Albumin/Globulin Ratio 1.3, Valproic Acid (Depakene) Level < 3L, Levetiracetam ( Keppra) Level [Pending] 09/05/16 19:48: White Blood Count 4.2L, Red Blood Count 2.56L, Hemoglobin 8.4L, Hematocrit 24.9L , Mean Corpuscular Volume 97, Mean Corpuscular Hemoglobin 32.8H, Mean Corpuscular Hemoglobin Concent 33.8, Red Cell Distribution Width 17.8H, Platelet Count 118L, Mean Platelet Volume 6.2L, Neutrophils (%) (Auto) 64.8, Lymphocytes (%) (Auto) 14.7L, Monocytes (%) (Auto) 18.0H, Eosinophils (%) (Auto ) 0.7, Basophils (%) (Auto) 2.0 Height (Feet): 5 Height (Inches): 10.00 Weight (Pounds): 135 General Appearance: WD/WN, no apparent distress, cachetic EENT: PERRL/EOMI, other - exopthalmus \ Neck: non-tender, limited range of motion, muscle spasm Cardiovascular: normal peripheral pulses, normal rate, regular rhythm Respiratory/Chest: chest wall non-tender, lungs clear Abdomen: normal bowel sounds, non tender, soft Extremities: non-tender, trace edema Neurologic: motor weakness - left upper arm paralysis, eft lower leg weakness , b motor ext sign muscle wasting. [place] 4-/5 SAMANTA GALARZA Sep 06, 2016 16:40
--- NOTE | 2016-09-06 18:04 | General Progress Note ---
Assessment/Plan Assessment/Plan 1. Pancytopenia especially secondary to underlying inflammatory process. --> counts have improved, no need for bone marrow biopsy --> monitor labs --> hgb goal above 7, transfuse prn # Anemia of GI bleed --> GI following, s/p egd and biospy of gastric lesion, the lesion is a blood clot 2. History of CVA. He had been on aspirin before. 3. End-stage renal disease. 4. Hemodialysis. Nephrology service management. 5. Chest pain, non-specific. 6. History of pericarditis. 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 HIV and Hepatitis panels ordered. --> both are negative 8. Elevated CEA. Tumor marker elevated. 9. Uncontrolled hypertension --> is now better controlled Subjective Constitutional: Reports: no symptoms HEENT: Reports: no symptoms Cardiovascular: Reports: no symptoms Respiratory: Reports: no symptoms Gastrointestinal/Abdominal: Reports: no symptoms Genitourinary: Reports: no symptoms Neurologic/Psychiatric: Reports: no symptoms Endocrine: Reports: no symptoms Hematologic/Lymphatic: Reports: no symptoms Allergies: Coded Allergies: PHENYTOIN SODIUM (Unverified Allergy, Intermediate, Hives, 12/01/11) PHENYTOIN SODIUM EXTENDED (Unverified Allergy, Intermediate, Hives, ) KETOROLAC (Verified Allergy, Mild, SOB, 06/28/11) METOCLOPRAMIDE (Verified Allergy, Mild, RASH, 06/28/11) NITROGLYCERIN (Verified Allergy, Mild, SEIZURES, 06/28/11) PENICILLINS (Verified Allergy, Mild, SOB, 06/28/11) PHENYTOIN (Verified Allergy, Mild, RASH, 06/28/11) ACETAMINOPHEN (Verified Allergy, Unknown, Shortness of Breath, 08/31/16) swelling throat, difficulty breathing HEPARIN (Verified Allergy, Unknown, Shortness of Breath, 08/28/16) HYDRALAZINE (Verified Allergy, Unknown, 08/28/16) HYDROCODONE (Verified Allergy, Unknown, Shortness of Breath, 08/31/16) swelling throat, difficulty breathing IBUPROFEN (Verified Allergy, Unknown, RASH, 06/28/11) IODINE (Verified Allergy, Unknown, SHOCK, 06/28/11) POLYSTYRENE SULFONATE (Verified Allergy, Unknown, RASH, 06/28/11) PROMETHAZINE (Verified Allergy, Unknown, RASH, 06/28/11) Subjective to receive hd later today Objective Last 24 Hour Vital Signs Date Time Temp Pulse Resp B/P Pulse Ox O2 Delivery O2 Flow Rate FiO2 09/06/16 16:00 97.0 94 19 130/67 100 Room Air 09/06/16 12:00 97.0 97 19 127/78 96 Room Air 09/06/16 10:36 97.0 09/06/16 09:00 109/63 09/06/16 09:00 98 109/63 09/06/16 09:00 109/63 09/06/16 08:00 97.0 98 19 109/63 98 Room Air 09/06/16 03:55 97.9 104 18 126/74 100 Room Air 09/06/16 00:38 104 94 Room Air 09/06/16 00:00 98.2 18 136/90 90 Room Air 09/05/16 21:00 102 104/64 09/05/16 20:00 99.5 102 18 104/64 92 Room Air Intake and Output 09/05/16 09/06/16 19:00 07:00 Intake Total 960 ml 360 ml Balance 960 ml 360 ml Intake Oral 960 ml 360 ml Laboratory Tests 09/05/16 19:15: Sodium Level 138, Potassium Level 3.9, Chloride Level 92L, Carbon Dioxide Level 27, Anion Gap 19H, Blood Urea Nitrogen 71H, Creatinine 6.8H, Estimat Glomerular Filtration Rate 11.6, Glucose Level 126H, Calcium Level 8.5L, Total Bilirubin < 0.2, Aspartate Amino Transf (AST/SGOT) 14, Alanine Aminotransferase (ALT/SGPT) 6 , Alkaline Phosphatase 2133H, Total Protein 5.3L, Albumin 3.0L, Globulin 2.3, Albumin/Globulin Ratio 1.3, Valproic Acid (Depakene) Level < 3L, Levetiracetam ( Keppra) Level [Pending] 09/05/16 19:48: White Blood Count 4.2L, Red Blood Count 2.56L, Hemoglobin 8.4L, Hematocrit 24.9L , Mean Corpuscular Volume 97, Mean Corpuscular Hemoglobin 32.8H, Mean Corpuscular Hemoglobin Concent 33.8, Red Cell Distribution Width 17.8H, Platelet Count 118L, Mean Platelet Volume 6.2L, Neutrophils (%) (Auto) 64.8, Lymphocytes (%) (Auto) 14.7L, Monocytes (%) (Auto) 18.0H, Eosinophils (%) (Auto ) 0.7, Basophils (%) (Auto) 2.0 Height (Feet): 5 Height (Inches): 10.00 Weight (Pounds): 135 General Appearance: no apparent distress EENT: normal ENT inspection Neck: normal alignment Cardiovascular: normal rate Respiratory/Chest: lungs clear Pelvis: no masses Skin: warm/dry Chavo Alfaro Sep 06, 2016 18:04
[2016-09-06] MEDS ORDERED: Vancomycin 1 GM in NS 275 ML IVPB ONE (21:00)
--- NOTE | 2016-09-06 23:07 | Pulmonology Progress Note ---
Assessment/Plan Problems: (1) Uncontrolled hypertension (2) Pericarditis (3) Chest pain (4) Anemia (5) Pancytopenia (6) ESRF (end stage renal failure) (7) Left hemiplegia (8) History of CVA (cerebrovascular accident) Assessment/Plan neuro consult decrease amount of narcotics because of episodes of nauseastill has hematemesis check h/h, stable despite the claim of hemoptysis HD tomorrow prison abx for pericarditis dc home tomorrow after HD Subjective ROS Limited/Unobtainable: No Allergies: Coded Allergies: PHENYTOIN SODIUM (Unverified Allergy, Intermediate, Hives, 12/01/11) PHENYTOIN SODIUM EXTENDED (Unverified Allergy, Intermediate, Hives, ) KETOROLAC (Verified Allergy, Mild, SOB, 06/28/11) METOCLOPRAMIDE (Verified Allergy, Mild, RASH, 06/28/11) NITROGLYCERIN (Verified Allergy, Mild, SEIZURES, 06/28/11) PENICILLINS (Verified Allergy, Mild, SOB, 06/28/11) PHENYTOIN (Verified Allergy, Mild, RASH, 06/28/11) ACETAMINOPHEN (Verified Allergy, Unknown, Shortness of Breath, 08/31/16) swelling throat, difficulty breathing HEPARIN (Verified Allergy, Unknown, Shortness of Breath, 08/28/16) HYDRALAZINE (Verified Allergy, Unknown, 08/28/16) HYDROCODONE (Verified Allergy, Unknown, Shortness of Breath, 08/31/16) swelling throat, difficulty breathing IBUPROFEN (Verified Allergy, Unknown, RASH, 06/28/11) IODINE (Verified Allergy, Unknown, SHOCK, 06/28/11) POLYSTYRENE SULFONATE (Verified Allergy, Unknown, RASH, 06/28/11) PROMETHAZINE (Verified Allergy, Unknown, RASH, 06/28/11) Objective Last 24 Hour Vital Signs Date Time Temp Pulse Resp B/P Pulse Ox O2 Delivery O2 Flow Rate FiO2 09/06/16 21:00 94 130/67 09/06/16 20:52 97.0 09/06/16 20:00 97.4 94 20 121/74 98 Room Air 98 09/06/16 16:00 97.0 94 19 130/67 100 Room Air 09/06/16 12:00 97.0 97 19 127/78 96 Room Air 09/06/16 09:00 109/63 09/06/16 09:00 98 109/63 09/06/16 09:00 109/63 09/06/16 08:00 97.0 98 19 109/63 98 Room Air 09/06/16 03:55 97.9 104 18 126/74 100 Room Air 09/06/16 00:38 104 94 Room Air 09/06/16 00:00 98.2 18 136/90 90 Room Air Intake and Output 09/05/16 09/06/16 19:00 07:00 Intake Total 960 ml 360 ml Balance 960 ml 360 ml Intake Oral 960 ml 360 ml Objective General Appearance: cachectic HEENT: normocephalic Respiratory/Chest: chest wall non-tender, lungs clear Breasts: no masses Cardiovascular: normal peripheral pulses Abdomen: normal bowel sounds, soft, non tender Genitourinary: normal external genitalia Skin: no rash Laboratory Tests 09/06/16 18:00: Random Vancomycin Level 13.4 Current Medications Medications (Trade) Dose Ordered Sig/Anant Route PRN Reason Start Time Stop Time Status Last Admin Dose Admin Acetaminophen (Tylenol) 650 mg Q4H PRN ORAL fever 08/31/16 18:04 09/30/16 18:03 Al Hydroxide/Mg Hydroxide (Mylanta II) 30 ml Q6H PRN ORAL dyspepsia 08/31/16 18:00 09/30/16 17:59 Ceftriaxone Sodium/Dextrose (Rocephin/D5W) 55 ml @ 110 mls/hr Q24H IVPB 09/01/16 13:00 09/08/16 12:59 09/06/16 13:33 Chlorhexidine Gluconate (Yessi-Hex 2%) 1 applic DAILY TOPIC 08/31/16 21:00 09/30/16 20:59 09/06/16 10:04 Clonidine HCl (Catapres) 0.1 mg Q4H PRN ORAL For SBP> 170 08/31/16 18:05 09/30/16 18:04 Clonidine HCl (Catapres) 0.2 mg DAILY ORAL 09/01/16 09:00 10/01/16 08:59 09/05/16 09:01 Dextrose (Dextrose 50%) STAT PRN IV Hypoglycemia 08/31/16 18:05 09/30/16 18:04 Diazepam 5 mg 5 mg Q4H PRN IV For Seizures 09/04/16 19:45 09/11/16 19:44 Diphenhydramine HCl (Benadryl) 25 mg Q6H PRN IVP Itching 08/31/16 18:06 09/30/16 18:05 09/06/16 20:00 Divalproex Sodium (Depakote) 250 mg Q12HR ORAL 08/31/16 21:00 09/30/16 20:59 09/06/16 21:13 Enalaprilat (Vasotec) 2.5 mg Q4H PRN IV SBP > 160 08/31/16 18:06 09/30/16 18:05 Epoetin Rajinder (Procrit (for ESRD on dialysis)) 10,000 units SUN-SUN-SUN SUBQ 09/01/16 21:00 10/01/16 20:59 09/04/16 21:20 Heparin Sodium (Porcine) (Heparin Sod 1000 units/ml 10ml) 2,000 unit ONCE PRN IV FOR HD USE ONLY 09/05/16 10:00 09/06/16 23:59 Labetalol HCl (Normodyne) 300 mg Q12HR ORAL 08/31/16 21:00 09/30/16 20:59 09/05/16 08:59 Levetiracetam (Keppra) 1,000 mg Q12HR ORAL 09/05/16 21:00 10/05/16 20:59 09/06/16 10:05 Lisinopril (Zestril) 10 mg DAILY ORAL 09/01/16 09:00 10/01/16 08:59 09/05/16 09:01 Lorazepam (Ativan 2mg/ml 1ml) 0.5 mg Q4H PRN IV For Anxiety 08/31/16 18:15 09/07/16 18:14 09/04/16 16:16 Morphine Sulfate (Morphine Sulfate) 1 mg Q3H PRN IVP For Severe Pain 09/05/16 20:30 09/12/16 20:29 09/06/16 20:00 Ondansetron HCl (Zofran) 4 mg Q6H PRN IVP Nausea & Vomiting 08/31/16 18:13 09/30/16 18:12 09/04/16 19:27 Pantoprazole (Protonix) 40 mg DAILY IVP 09/01/16 09:00 10/01/16 08:59 09/06/16 10:05 Phenytoin (Dilantin) 100 mg EVERY 8 HOURS ORAL 09/05/16 17:30 10/05/16 17:29 09/06/16 21:14 Polyethylene Glycol (Miralax) 17 gm HSPRN PRN ORAL Constipation 08/31/16 18:13 09/30/16 18:12 Sodium Chloride (Sodium Chloride 1000ml bag) 1,000 ml @ 500 mls/hr Q2H PRN IVLG sbp<90 during hd 09/05/16 10:00 09/06/16 23:59 Sucralfate (Carafate) 1 gm FOUR TIMES A DAY ORAL 09/03/16 18:00 10/03/16 17:59 09/06/16 20:00 Vancomycin HCl (Vanco rx to dose) 1 ea DAILY PRN MISC Per rx protocol 08/31/16 18:14 09/30/16 18:13 Zolpidem Tartrate (Ambien) 5 mg HSPRN PRN ORAL Insomnia 08/31/16 20:30 09/30/16 20:29 BETHEL PACK Sep 06, 2016 23:07
[2016-09-06] MEDS: Epogen (for ESRD on dialysis) SUBQ SCH (23:40)
[2016-09-07] MEDS: DiphenhydrAMINE 50mg/ml Inj IVP PRN ×2 (03:16→12:21)
[2016-09-07] MEDS: Morphine Sulfate 2mg/ml Inj IVP PRN ×3 (03:16→09:54)
[2016-09-07 04:00] VITALS: BP 122/68
[2016-09-07] MEDS: Phenytoin 100mg cap ORAL SCH ×2 (06:00→06:13)
[2016-09-07 08:00] VITALS: BP 142/88
[2016-09-07] MEDS: cloNIDine 0.2mg Tab ORAL SCH (09:00)
[2016-09-07] MEDS: Dyna-Hex 2% Top Sol 8oz TOPIC SCH ×2 (09:00→09:59)
[2016-09-07] MEDS: Sucralfate 1gm tab ORAL SCH ×3 (09:00→13:00)
[2016-09-07] MEDS: Lisinopril 10mg tab ORAL SCH (09:00)
[2016-09-07] MEDS: Pantoprazole Inj IVP SCH (09:55)
--- NOTE | 2016-09-07 10:40 | GI Progress Note ---
Assessment/Plan Problems: (1) Alkaline phosphatase elevation ICD Codes: R74.8 - Abnormal levels of other serum enzymes SNOMED: 005187701 (2) Severe malnutrition ICD Codes: E43 - Unspecified severe protein-calorie malnutrition SNOMED: 58331093 (3) Pancytopenia ICD Codes: D61.818 - Other pancytopenia SNOMED: 743109385 Status: stable, unchanged Status Narrative Discussed with Dr. Sandoval. Assessment/Plan elevated CEA 8.6 HIV negative - N/V - UGIB - HH - Midbody gastric lesion, biopsied - contractures - Anemia - Renal failure Recommendations - follow H&H >> stable - PPI - Elevate HOB - Carafate - PPI - f/u path >> blood clot Subjective Subjective generalized weakness Objective Last 24 Hour Vital Signs Date Time Temp Pulse Resp B/P Pulse Ox O2 Delivery O2 Flow Rate FiO2 09/07/16 09:59 106 142/88 09/07/16 08:00 97.9 106 17 142/88 99 Room Air 09/07/16 06:43 97.5 09/07/16 04:00 97.5 95 20 122/68 99 Room Air 09/06/16 23:45 97.4 107 19 119/64 98 Room Air 09/06/16 23:32 Room Air 09/06/16 23:29 Room Air 09/06/16 21:00 94 130/67 09/06/16 20:00 97.4 94 20 121/74 98 Room Air 98 09/06/16 16:00 97.0 94 19 130/67 100 Room Air 09/06/16 12:00 97.0 97 19 127/78 96 Room Air Intake and Output 09/06/16 09/07/16 19:00 07:00 Intake Total 600 ml 240 ml Output Total 2000 ml Balance 600 ml -1760 ml Intake Oral 600 ml 240 ml Hemodialysis UF 2000 ml Laboratory Tests Test 09/06/16 18:00 Random Vancomycin Level 13.4 ug/mL Height (Feet): 5 Height (Inches): 10.00 Weight (Pounds): 135 General Appearance: no apparent distress, alert Cardiovascular: normal rate Respiratory/Chest: normal breath sounds, no respiratory distress Abdominal Exam: normal bowel sounds, non tender, soft Ashleigh Marie N.PIsabelle Sep 07, 2016 10:40
[2016-09-07] MEDS: cefTRIAXone 1 GM in D5W 55 ML IVPB SCH (11:24)
[2016-09-07 12:00] VITALS: BP 125/69
--- NOTE | 2016-09-07 16:12 | General Progress Note ---
Assessment/Plan Assessment/Plan 1. Pancytopenia especially secondary to underlying inflammatory process. --> counts have improved, no need for bone marrow biopsy --> monitor labs --> hgb goal above 7, transfuse prn # Anemia of GI bleed --> GI following, s/p egd and biospy of gastric lesion, the lesion is a blood clot 2. History of CVA. He had been on aspirin before. 3. End-stage renal disease. 4. Hemodialysis. Nephrology service management. 5. Chest pain, non-specific. 6. History of pericarditis. --> on intermediate abx 7. HIV and Hepatitis panels ordered. --> both are negative 8. Elevated CEA. Tumor marker elevated. 9. Uncontrolled hypertension --> is now better controlled Subjective Constitutional: Reports: no symptoms HEENT: Reports: no symptoms Cardiovascular: Reports: no symptoms Respiratory: Reports: no symptoms Gastrointestinal/Abdominal: Reports: no symptoms Genitourinary: Reports: no symptoms Neurologic/Psychiatric: Reports: no symptoms Endocrine: Reports: no symptoms Hematologic/Lymphatic: Reports: anemia Allergies: Coded Allergies: PHENYTOIN SODIUM (Unverified Allergy, Intermediate, Hives, 12/01/11) PHENYTOIN SODIUM EXTENDED (Unverified Allergy, Intermediate, Hives, ) KETOROLAC (Verified Allergy, Mild, SOB, 06/28/11) METOCLOPRAMIDE (Verified Allergy, Mild, RASH, 06/28/11) NITROGLYCERIN (Verified Allergy, Mild, SEIZURES, 06/28/11) PENICILLINS (Verified Allergy, Mild, SOB, 06/28/11) PHENYTOIN (Verified Allergy, Mild, RASH, 06/28/11) ACETAMINOPHEN (Verified Allergy, Unknown, Shortness of Breath, 08/31/16) swelling throat, difficulty breathing HEPARIN (Verified Allergy, Unknown, Shortness of Breath, 08/28/16) HYDRALAZINE (Verified Allergy, Unknown, 08/28/16) HYDROCODONE (Verified Allergy, Unknown, Shortness of Breath, 08/31/16) swelling throat, difficulty breathing IBUPROFEN (Verified Allergy, Unknown, RASH, 06/28/11) IODINE (Verified Allergy, Unknown, SHOCK, 06/28/11) POLYSTYRENE SULFONATE (Verified Allergy, Unknown, RASH, 06/28/11) PROMETHAZINE (Verified Allergy, Unknown, RASH, 06/28/11) Subjective dc today Objective Last 24 Hour Vital Signs Date Time Temp Pulse Resp B/P Pulse Ox O2 Delivery O2 Flow Rate FiO2 09/07/16 12:00 97.7 96 18 125/69 98 Room Air 09/07/16 10:24 97.9 09/07/16 09:59 106 142/88 09/07/16 08:00 97.9 106 17 142/88 99 Room Air 09/07/16 04:00 97.5 95 20 122/68 99 Room Air 09/06/16 23:45 97.4 107 19 119/64 98 Room Air 09/06/16 23:32 Room Air 09/06/16 23:29 Room Air 09/06/16 21:00 94 130/67 09/06/16 20:00 97.4 94 20 121/74 98 Room Air 98 Intake and Output 09/06/16 09/07/16 19:00 07:00 Intake Total 600 ml 240 ml Output Total 2000 ml Balance 600 ml -1760 ml Intake Oral 600 ml 240 ml Hemodialysis UF 2000 ml Laboratory Tests 09/06/16 18:00: Random Vancomycin Level 13.4 Height (Feet): 5 Height (Inches): 10.00 Weight (Pounds): 135 General Appearance: no apparent distress EENT: normal ENT inspection Neck: normal alignment Cardiovascular: normal peripheral pulses Respiratory/Chest: lungs clear Edema: no edema noted Pedal (L), no edema noted Pedal (R) Neurologic: oriented x 3 Skin: normal pigmentation Chavo Alfaro Sep 07, 2016 16:12
--- NOTE | 2016-09-07 16:14 | Pulmonology Progress Note ---
Assessment/Plan Problems: (1) Uncontrolled hypertension (2) Pericarditis (3) Chest pain (4) Anemia (5) Pancytopenia (6) ESRF (end stage renal failure) (7) Left hemiplegia (8) History of CVA (cerebrovascular accident) Assessment/Plan neuro consult decrease amount of narcotics because of episodes of nauseastill has hematemesis check h/h, stable despite the claim of hemoptysis alf abx for pericarditis dc home today after HD Subjective ROS Limited/Unobtainable: No Constitutional: Reports: no symptoms HEENT: Repors: no symptoms Respiratory: Reports: no symptoms Allergies: Coded Allergies: PHENYTOIN SODIUM (Unverified Allergy, Intermediate, Hives, 12/01/11) PHENYTOIN SODIUM EXTENDED (Unverified Allergy, Intermediate, Hives, ) KETOROLAC (Verified Allergy, Mild, SOB, 06/28/11) METOCLOPRAMIDE (Verified Allergy, Mild, RASH, 06/28/11) NITROGLYCERIN (Verified Allergy, Mild, SEIZURES, 06/28/11) PENICILLINS (Verified Allergy, Mild, SOB, 06/28/11) PHENYTOIN (Verified Allergy, Mild, RASH, 06/28/11) ACETAMINOPHEN (Verified Allergy, Unknown, Shortness of Breath, 08/31/16) swelling throat, difficulty breathing HEPARIN (Verified Allergy, Unknown, Shortness of Breath, 08/28/16) HYDRALAZINE (Verified Allergy, Unknown, 08/28/16) HYDROCODONE (Verified Allergy, Unknown, Shortness of Breath, 08/31/16) swelling throat, difficulty breathing IBUPROFEN (Verified Allergy, Unknown, RASH, 06/28/11) IODINE (Verified Allergy, Unknown, SHOCK, 06/28/11) POLYSTYRENE SULFONATE (Verified Allergy, Unknown, RASH, 06/28/11) PROMETHAZINE (Verified Allergy, Unknown, RASH, 06/28/11) Objective Last 24 Hour Vital Signs Date Time Temp Pulse Resp B/P Pulse Ox O2 Delivery O2 Flow Rate FiO2 09/07/16 12:00 97.7 96 18 125/69 98 Room Air 09/07/16 10:24 97.9 09/07/16 09:59 106 142/88 09/07/16 08:00 97.9 106 17 142/88 99 Room Air 09/07/16 04:00 97.5 95 20 122/68 99 Room Air 09/06/16 23:45 97.4 107 19 119/64 98 Room Air 09/06/16 23:32 Room Air 09/06/16 23:29 Room Air 09/06/16 21:00 94 130/67 09/06/16 20:00 97.4 94 20 121/74 98 Room Air 98 Intake and Output 09/06/16 09/07/16 19:00 07:00 Intake Total 600 ml 240 ml Output Total 2000 ml Balance 600 ml -1760 ml Intake Oral 600 ml 240 ml Hemodialysis UF 2000 ml Objective General Appearance: cachectic HEENT: normocephalic Respiratory/Chest: chest wall non-tender, lungs clear Breasts: no masses Cardiovascular: normal peripheral pulses Abdomen: normal bowel sounds, soft, non tender Genitourinary: normal external genitalia Skin: no rash Laboratory Tests 09/06/16 18:00: Random Vancomycin Level 13.4 BETHEL PACK Sep 07, 2016 16:14
--- NOTE | 2016-09-08 18:48 | Discharge Summary ---
Discharge Summary Hospital Course Date of Admission Aug 28, 2016 at 19:43 Date of Discharge Sep 07, 2016 at 13:47 Admitting Diagnosis CP, hypertension HPI Jose Campo is a 30 year old male who was admitted on Aug 28, 2016 at 19:43 for Chest Pain, Hypertension Hospital Course [id number] Discharge Discharge Disposition Patient was discharged to Home (01) Discharge Diagnoses: Loli Martinez NP Sep 08, 2016 18:48
--- NOTE | 2016-09-09 00:30 | Discharge Summary 2 SIG ---
DATE OF ADMISSION: 08/28/2016 DATE OF DISCHARGE: 09/07/2016 CONSULTANTS: 1. Nitza Gaines M.D. 2. Alec Sandoval M.D. 3. Chavo Alfaro M.D. 4. Alfredo Hopper M.D. 5. Thomas Rodriguez M.D. BRIEF HOSPITAL COURSE: The patient is a 30-year-old male with history of end-stage renal failure on hemodialysis, CVA, and hypertension presented to the ED complaining of chest pain. He claims that he has history of pericarditis and has a central line in the chest and is receiving antibiotic vancomycin and cefepime. On arrival to the ED, evaluation done showed WBC of 2.9, hemoglobin 6.9, hematocrit 20 and platelet was 71,000. Creatinine was 4.4 and BUN was 37. Troponin was negative. EKG done showed normal sinus rhythm with no acute changes and an unusual P-wave axis with left atrial enlargement. Chest x-ray showed no effusion, no pneumothorax and no acute cardiopulmonary disease. He was admitted to [facility] for anemia, pancytopenia, pericarditis and renal failure. He was given blood transfusion. He was continued on IV ceftriaxone and vancomycin. The patient was placed on proton-pump inhibitors. CEA was elevated to 8.6. Hemoglobin level improved post transfusion, however, on 09/01/2016 dropped to 7.8. He underwent EGD by Dr. Sandoval and findings showed evidence of hiatal hernia and evidence of a lesion in the mid body, which was biopsied. Biopsy results showed blood clots with fragments of unremarkable foveolar columnar cells. He received total of three units packed RBC transfusion during inpatient stay. He was followed by Dr. Gaines for hemodialysis. He was also followed by yarn examiner for pancytopenia. Recommend to hold off on bone marrow biopsy secondary to end-stage renal disease and hemodialysis. Renal ultrasound showed nonvisualization of kidneys, as noted from prior CT scan, which showed evidence of bilateral nephrectomy. There was negative gallstones. Dr. Rodriguez was also consulted for evaluation of enlarged tonsils and recommended to use Cornelio's solution swish and spit three times a day for five days. He was planned to be discharged, however, discharge was held, as the patient had exacerbation of seizure activity during hemodialysis. Dr. Gorinstein was then consulted. The patient has a vagal nerve stimulator as well as has been on Depakote, Dilantin and Keppra. He was advised need to follow up to [facility] or [facility] to test vagal nerve stimulator. Head CT was negative for acute intracranial bleed or mass effect with progressive cerebral volume loss and old right-sided encephalomalacia. He was placed on Keppra 1000 mg q.12 h. and Dilantin 100 mg q. 8 h., however, the patient would sometimes refuse medications. Narcotics was decreased. The patient was complaining of nausea and had episodes of hematemesis. Hemoglobin and hematocrit had been stable. He was discharged home with home health. Advised to follow up with PMD as outpatient. DISPOSITION: The patient discharged home with home health to continue IV antibiotics. DISCHARGE MEDICATION: The patient is to continue vancomycin and Rocephin until 09/19/2016. FINAL DIAGNOSES: 1. Acute anemia requiring blood transfusion. 2. Pancytopenia. 3. Pericarditis. 4. Cerebrovascular accident with left hemiplegia. 5. End-stage renal failure, on hemodialysis. 6. Anemia of gastrointestinal bleed. 7. Uncontrolled hypertension. 8. Severe protein-calorie malnutrition. 9. Alkaline phosphatase elevation. 10. Elevated carcinoembryonic antigen. 11. Seizure disorder with acute exacerbation. 12. Anemia of chronic kidney disease. 13. Coronary artery disease. 14. Chronic left leg deep vein thrombosis. Kaylah Hayward M.D. I have been assigned to dictate discharge summary on this account and I was not involved in the patient's management. Loli Martinez N.P. DR: SURESH JOB#: [id number] CC: LINA
== END 2016-09-07 13:47 | disposition home health service (06) | DRG 314 ==
LOC: EDUNIT# 16:42 → EDBD 16:42 → EMR 17:43 → 2W 19:43 → EDBEDREQSVC 19:48 → EDBEDREQ 19:48 → 4W 08-31 17:43 → 4E 09-02 14:55 → 4W 09-05 08:01
PROC: 5A1D60Z (ICD-10-PCS; principal; 2016-08-29)
PROC: 3E0G8GC Introduction of Other Therapeutic Substance into Upper GI, Via Natural or Artificial Opening Endoscopic (ICD-10-PCS; 2016-09-01 12:47)
PROC: 0DB68ZX Excision of Stomach, Via Natural or Artificial Opening Endoscopic, Diagnostic (ICD-10-PCS; 2016-09-01 12:47)
DX: I31.9 Disease of pericardium, unspecified (principal); N18.6 End stage renal disease; E43 Unspecified severe protein-calorie malnutrition; D61.818 Other pancytopenia; I13.11 Hypertensive heart and chronic kidney disease without heart failure, with stage 5 chronic kidney disease, or end stage renal disease; D69.6 Thrombocytopenia, unspecified; I82.5Z2 Chronic embolism and thrombosis of unspecified deep veins of left distal lower extremity; K92.2 Gastrointestinal hemorrhage, unspecified; I69.959 Hemiplegia and hemiparesis following unspecified cerebrovascular disease affecting unspecified side; D64.9 Anemia, unspecified; I69.30 Unspecified sequelae of cerebral infarction; Z99.2 Dependence on renal dialysis; Z68.20 Body mass index [BMI] 20.0-20.9, adult; K31.9 Disease of stomach and duodenum, unspecified; G40.909 Epilepsy, unspecified, not intractable, without status epilepticus; N18.9 Chronic kidney disease, unspecified; D63.1 Anemia in chronic kidney disease; I25.10 Atherosclerotic heart disease of native coronary artery without angina pectoris; K44.9 Diaphragmatic hernia without obstruction or gangrene; H05.20 Unspecified exophthalmos; E21.3 Hyperparathyroidism, unspecified; J02.9 Acute pharyngitis, unspecified; R74.8 Abnormal levels of other serum enzymes
CPT/HCPCS: 36415; 70450; 71010; 76700; 80048; 80053; 80164; 80202; 80299; 82270; 82378; 82550; 82553; 82607; 82728; 82746; 82977; 83540; 83550; 83615; 84100; 84443; 84484; 85007; 85025; 85044; 85060; 85610; 85651; 85730; 86703; 86705; 86709; 86803; 86850; 86900; 86901; 86920; 87081; 87340; 93005; 93970; 94003; 94150; 95819; J0171; J2405

== ENCOUNTER 2016-10-16 19:37 | Inpatient (IN) | payer MEDICARE, MEDICAID ==
[~2016-10-16] VITALS: Ht 165.1 cm; Wt 49.0 kg
[~2016-10-16 19:37] MED LIST: CATAPRES0.2 MG ORAL; DEPAKOTE250 MG PO; DILANTIN100 MG ORAL; KEPPRA1000 MG ORAL; LABETALOL HCL300 MG ORAL; LISINOPRIL10 MG ORAL; NEPRO CARB STE237 ML PO; PROTONIX40 MG ORAL
[2016-10-16 19:45] VITALS: BP 192/110
[2016-10-16 20:55] LABS: MEAN CORPUSCULAR HEMOGLOBIN 31.4 PG (27.0-31.0); MEAN CORPUSCULAR HGB CONC 33.7 G/DL (32.0-36.0); MEAN CORPUSCULAR VOLUME 93 FL (80-99); MEAN PLATELET VOLUME 7.8 FL (6.5-10.1); PLATELET COUNT 88 K/UL (150-450); RED BLOOD COUNT 2.89 M/UL (4.70-6.10); RED CELL DISTRIBUTION WIDTH 16.1 % (11.6-14.8); WHITE BLOOD COUNT 4.1 K/UL (4.8-10.8)
[2016-10-16] MEDS ORDERED: Morphine Sulfate 4mg/ml Inj IVP ONE (21:15)
[2016-10-16 21:23] LABS: TROPONIN I < 0.30 ng/mL (<=0.30)
[2016-10-16 21:27] LABS: ALBUMIN/GLOBULIN RATIO 1.1 (1.0-2.7); CALCIUM 8.5 mg/dL (8.6-10.2); CREATININE 2.5 mg/dL (0.7-1.2); POTASSIUM 3.4 mEQ/L (3.4-4.9); TOTAL PROTEIN 5.7 g/dL (6.6-8.7)
[2016-10-16 21:37] LABS: CKMB 4.7 ng/mL (< 6.7)
[2016-10-16 22:06] VITALS: BP 220/105
[2016-10-16 22:14] LABS: ANISOCYTOSIS 1+; BAND NEUTROPHILS % (MANUAL) 0 % (0-8); BASOPHILS % (MANUAL) 1 % (0-2); EOSINOPHILS % (MANUAL) 2 % (0-3); LYMPHOCYTES % (MANUAL) 14 % (20-45); NEUTROPHILS % (MANUAL) 78 % (45-75); PLATELET ESTIMATE DECREASED; PLATELET MORPHOLOGY NORMAL; TOTAL CELLS COUNTED 100
[2016-10-16] MEDS ORDERED: DuoNeb 0.5-3(2.5)mg/3ml neb HHN PRN (22:30)
[2016-10-16] MEDS ORDERED: Enalaprilat 2.5mg/2ml Inj IV PRN ×2 (22:30→22:45)
[2016-10-16] MEDS ORDERED: Miralax 17gm pkt ORAL PRN (22:30)
[2016-10-16] MEDS ORDERED: Diltiazem 25mg/5ml IV PRN (22:30)
[2016-10-16] MEDS ORDERED: Minoxidil 2.5mg tab ORAL PRN (22:45)
--- NOTE | 2016-10-16 23:14 | Emergency Room Report ---
History of Present Illness General Chief Complaint: Chest Pain Source: Patient Present Illness HPI This patient is well-known to [facility]. He has history of end- stage renal disease, chronic pericarditis, CVA, Myocardial infarction and seizure disorder. He is admitted to [facility] regularly. He was at dialysis today and developed chest pain. He is brought in by EMS. He also has hypertension. He states that he currently is undergoing treatment for chronic pericarditis. He also has an ongoing GI bleed. He is getting regular IV vancomycin. He is supposed to be undergoing removal of his pericardium at [facility] soon. He denies recent illness. He has no other complaints. Allergies: Coded Allergies: PHENYTOIN SODIUM (Unverified Allergy, Intermediate, Hives, 12/01/11) PHENYTOIN SODIUM EXTENDED (Unverified Allergy, Intermediate, Hives, ) KETOROLAC (Verified Allergy, Mild, SOB, 06/28/11) METOCLOPRAMIDE (Verified Allergy, Mild, RASH, 06/28/11) NITROGLYCERIN (Verified Allergy, Mild, SEIZURES, 06/28/11) PENICILLINS (Verified Allergy, Mild, SOB, 06/28/11) PHENYTOIN (Verified Allergy, Mild, RASH, 06/28/11) ACETAMINOPHEN (Verified Allergy, Unknown, Shortness of Breath, 08/31/16) swelling throat, difficulty breathing CODEINE (Unverified Allergy, Unknown, 10/16/16) HEPARIN (Verified Allergy, Unknown, Shortness of Breath, 08/28/16) HYDRALAZINE (Verified Allergy, Unknown, 08/28/16) HYDROCODONE (Verified Allergy, Unknown, Shortness of Breath, 08/31/16) swelling throat, difficulty breathing IBUPROFEN (Verified Allergy, Unknown, RASH, 06/28/11) IODINE (Verified Allergy, Unknown, SHOCK, 06/28/11) POLYSTYRENE SULFONATE (Verified Allergy, Unknown, RASH, 06/28/11) PROMETHAZINE (Verified Allergy, Unknown, RASH, 06/28/11) Patient History Past Medical History: see triage record, HTN, IN, CAD, GERD, GI bleed, CVA/TIA , seizures, renal disease, dialysis Social History: Denies: smoking, alcohol use, drug use Reviewed Nursing Documentation: PMH: Agreed, PSxH: Agreed Nursing Documentation-PMH Hx Cardiac Problems: Yes - IN, pericarditis Hx Hypertension: Yes - CVA, IN, PREICARDITIS Hx Pacemaker: Yes Hx Asthma: Yes Hx Cancer: No Hx Dialysis: Yes - [facility] Hx Cerebrovascular Accident: Yes Hx Seizures: Yes Review of Systems All Other Systems: negative except mentioned in HPI Physical Exam Vital Signs Date Time Temp Pulse Resp B/P (MAP) Pulse Ox O2 Delivery O2 Flow Rate FiO2 10/16/16 19:29 99.1 100 18 185/102 97 Room Air Sp02 EP Interpretation: reviewed, normal General Appearance: no apparent distress, alert, GCS 15, non-toxic Head: normocephalic, atraumatic Eyes: bilateral eye normal inspection, bilateral eye PERRL ENT: hearing grossly normal, normal pharynx, no angioedema, normal voice Neck: full range of motion, supple/symm/no masses Respiratory: chest non-tender, lungs clear, normal breath sounds, speaking full sentences Cardiovascular #1: no edema, tachycardia Gastrointestinal: normal bowel sounds, non tender, soft, non-distended, no guarding, no rebound Rectal: deferred Musculoskeletal: other - Contracted, at baseline Neurologic: alert, oriented x3, responsive, speech normal, other - AT baseline Psychiatric: judgement/insight normal, memory normal, mood/affect normal, no suicidal/homicidal ideation Skin: warm/dry, well hydrated Medical Decision Making Diagnostic Impression: Primary Impression: Chest pain Additional Impression: Malignant hypertension ER Course This patient has difficult to control hypertension. He also has known pericarditis. He was given hydralazine IV x2 doses. He continued to have chest pain and tachycardia. He is admitted for further evaluation and treatment. Laboratory workup is at his baseline. Laboratory Tests Test 10/16/16 20:18 White Blood Count 4.1 K/UL (4.8-10.8) L Red Blood Count 2.89 M/UL (4.70-6.10) L Hemoglobin 9.1 G/DL (14.2-18.0) L Hematocrit 26.9 % (42.0-52.0) L Mean Corpuscular Volume 93 FL (80-99) Mean Corpuscular Hemoglobin 31.4 PG (27.0-31.0) H Mean Corpuscular Hemoglobin Concent 33.7 G/DL (32.0-36.0) Red Cell Distribution Width 16.1 % (11.6-14.8) H Platelet Count 88 K/UL (150-450) L Mean Platelet Volume 7.8 FL (6.5-10.1) Neutrophils (%) (Auto) % (45.0-75.0) Lymphocytes (%) (Auto) % (20.0-45.0) Monocytes (%) (Auto) % (1.0-10.0) Eosinophils (%) (Auto) % (0.0-3.0) Basophils (%) (Auto) % (0.0-2.0) Differential Total Cells Counted 100 Neutrophils % (Manual) 78 % (45-75) H Lymphocytes % (Manual) 14 % (20-45) L Monocytes % (Manual) 5 % (1-10) Eosinophils % (Manual) 2 % (0-3) Basophils % (Manual) 1 % (0-2) Band Neutrophils 0 % (0-8) Platelet Estimate Decreased L Platelet Morphology Normal Hypochromasia Anisocytosis 1+ Sodium Level 134 mEQ/L (135-145) L Potassium Level 3.4 mEQ/L (3.4-4.9) Chloride Level 96 mEQ/L (98-107) L Carbon Dioxide Level 23 mEQ/L (20-30) Anion Gap 15 (5-15) Blood Urea Nitrogen 21 mg/dL (7-23) Creatinine 2.5 mg/dL (0.7-1.2) H Estimate Glomerular Filtration Rate 37.0 mL/min (>60) Glucose Level 74 mg/dL (74-106) Calcium Level 8.5 mg/dL (8.6-10.2) L Total Bilirubin 0.3 mg/dL (0.0-1.2) Aspartate Amino Transferase (AST) 18 U/L (5-40) Alanine Aminotransferase (ALT) 6 U/L (3-41) Alkaline Phosphatase 3048 U/L (40-129) H Total Creatine Kinase 65 U/L (38-174) Creatine Kinase MB 4.7 ng/mL (< 6.7) Creatine Kinase MB Relative Index 7.2 Troponin I < 0.30 ng/mL (<=0.30) Total Protein 5.7 g/dL (6.6-8.7) L Albumin 3.1 g/dL (3.5-5.2) L Globulin 2.6 g/dL Albumin/Globulin Ratio 1.1 (1.0-2.7) EKG Diagnostic Results Rate: normal Rhythm: NSR ST Segments: no acute changes Rhythm Strip Diag. Results EP Interpretation: yes Rate: 90's Rhythm: NSR, no PVC's, no ectopy Chest X-Ray Diagnostic Results Chest X-Ray Diagnostic Results : Chest X-Ray Ordered: Yes # of Views/Limited/Complete: 1 View Indication: Chest Pain EP Interpretation: Yes Interpretation: no consolidation, no effusion, no pneumothorax, no acute cardiopulmonary disease Impression: No acute disease Electronically Signed by: Rd Last Vital Signs Date Time Temp Pulse Resp B/P (MAP) Pulse Ox O2 Delivery O2 Flow Rate FiO2 10/16/16 22:45 193/104 10/16/16 22:06 99.0 100 16 100 Room Air Disposition: ADMITTED INPATIENT Condition: Serious Referrals: NOT CHOSEN [place]/,REFERRING (PCP) BHANU VENTURA D.O. Oct 16, 2016 23:14
[2016-10-16] MEDS ORDERED: Enalaprilat 2.5mg/2ml Inj IV ONE (23:45)
[2016-10-16] MEDS ORDERED: CRANBERRY500 M4 PO (23:48)
[2016-10-16] MEDS ORDERED: ASPIR 8181 MG ORAL (23:48)
[2016-10-16] MEDS ORDERED: FERROUS SULFAT325 MG ORAL (23:48)
[2016-10-16] MEDS ORDERED: ZINC SULFATE220 M1 ORAL (23:48)
[2016-10-16] MEDS ORDERED: AMLODIPINE BESYL5 MG ORAL (23:48)
[2016-10-16] MEDS ORDERED: VITAMIN C500 M1 ORAL (23:48)
[2016-10-16] MEDS ORDERED: FLOMAX0.4 MG ORAL (23:48)
[2016-10-17] VITALS (8 sets, daily range): BP systolic 147–189; BP diastolic 80–116
[2016-10-17 05:43] LABS: MEAN CORPUSCULAR HEMOGLOBIN 30.8 PG (27.0-31.0); MEAN CORPUSCULAR HGB CONC 32.7 G/DL (32.0-36.0); MEAN CORPUSCULAR VOLUME 94 FL (80-99); MEAN PLATELET VOLUME 7.8 FL (6.5-10.1); PLATELET COUNT 94 K/UL (150-450); RED BLOOD COUNT 3.03 M/UL (4.70-6.10); WHITE BLOOD COUNT 6.1 K/UL (4.8-10.8)
[2016-10-17 06:15] LABS: CHOLESTEROL/HDL RATIO 2.9 (3.3-4.4); CRP QUANT 0.6 mg/dL (< 0.5)
[2016-10-17 06:17] LABS: TROPONIN I < 0.30 ng/mL (<=0.30)
[2016-10-17 06:24] LABS: THYROID STIMULATING HORMONE 0.679 uIU/mL (0.300-4.500)
[2016-10-17] MEDS: Dyna-Hex 2% Top Sol 8oz TOPIC SCH (08:40)
[2016-10-17] MEDS: Aspirin Baby 81mg ORAL SCH (08:42)
[2016-10-17] MEDS ORDERED: cloNIDine 0.2mg Tab ORAL SCH ×2 (09:00→21:00)
[2016-10-17] MEDS ORDERED: Lisinopril 10mg tab ORAL SCH (09:00)
[2016-10-17] MEDS ORDERED: Phenytoin 100mg cap ORAL SCH (09:00)
[2016-10-17 11:23] LABS: PROTHROMBIN TIME 10.1 SEC (9.30-11.50)
[2016-10-17] MEDS: Phenytoin 100mg cap ORAL SCH ×3 (11:48→21:56)
--- NOTE | 2016-10-17 11:50 | Diagnostic Imaging Report ---
Indication: Dyspnea Comparison: 08/28/16 A single view chest radiograph was obtained. Findings: There is a left jugular permacath in good position. There is stenting of the SVC and left innominate vein. The heart is enlarged. No infiltrate or pulmonary edema identified currently. Surgical clips noted in the left axilla. Battery device noted in the left chest with leads extending into the left side of the neck and beyond the [id number]. Cholecystectomy clips demonstrated in the right upper quadrant of abdomen. Bones are osteopenic. Impression: No acute disease.
--- NOTE | 2016-10-17 13:24 | History and Physical ---
History of Present Illness General Date patient seen: Oct 17, 2016 Reason for Hospitalization: Chest Pain Present Illness HPI 30 year old male with history of end-stage renal disease, chronic pericarditis, CVA, Myocardial infarction and seizure disorder. He was at dialysis yesterday and developed chest pain. He is brought in by EMS. He states that he currently is undergoing treatment for chronic pericarditis. He also has an ongoing GI bleed. He is getting regular IV vancomycin. He is supposed to be undergoing removal of his pericardium at [facility] soon. He is admitted for hypertensive emergency and possible ACS. Allergies: Coded Allergies: PHENYTOIN SODIUM (Unverified Allergy, Intermediate, Hives, 12/01/11) PHENYTOIN SODIUM EXTENDED (Unverified Allergy, Intermediate, Hives, ) KETOROLAC (Verified Allergy, Mild, SOB, 06/28/11) METOCLOPRAMIDE (Verified Allergy, Mild, RASH, 06/28/11) NITROGLYCERIN (Verified Allergy, Mild, SEIZURES, 06/28/11) PENICILLINS (Verified Allergy, Mild, SOB, 06/28/11) PHENYTOIN (Verified Allergy, Mild, RASH, 06/28/11) ACETAMINOPHEN (Verified Allergy, Unknown, Shortness of Breath, 08/31/16) swelling throat, difficulty breathing CODEINE (Unverified Allergy, Unknown, 10/16/16) HEPARIN (Verified Allergy, Unknown, Shortness of Breath, 08/28/16) HYDRALAZINE (Verified Allergy, Unknown, 08/28/16) HYDROCODONE (Verified Allergy, Unknown, Shortness of Breath, 08/31/16) swelling throat, difficulty breathing IBUPROFEN (Verified Allergy, Unknown, RASH, 06/28/11) IODINE (Verified Allergy, Unknown, SHOCK, 06/28/11) POLYSTYRENE SULFONATE (Verified Allergy, Unknown, RASH, 06/28/11) PROMETHAZINE (Verified Allergy, Unknown, RASH, 06/28/11) Medication History Scheduled Clonidine Hcl* (Catapres*), 0.2 MG ORAL DAILY, (Reported) Divalproex Sodium* (Depakote*), 250 MG PO Q12HR, (Reported) Labetalol Hcl* (Normodyne*), 300 MG ORAL DAILY, (Reported) Levetiracetam (Keppra), 1,000 MG ORAL BID, (Reported) Lisinopril* (Lisinopril*), 10 MG ORAL DAILY, (Reported) Nut.tx.impaired Renal Fxn,Soy (Nepro Carb Steady), PO QID, (Reported) Phenytoin Sodium Extended* (Dilantin*), 300 MG ORAL DAILY, (Reported) Miscellaneous Medications Pantoprazole* (Protonix*), 40 MG ORAL, (Reported) Patient History Healthcare decision maker Resuscitation status Full Code Advanced Directive on File Past Medical/Surgical History Past Medical/Surgical History: (1) ESRF (end stage renal failure) (2) History of CVA (cerebrovascular accident) (3) Pericarditis (4) Severe malnutrition Review of Systems All Other Systems: negative except mentioned in HPI Physical Exam General Appearance: WD/WN, no apparent distress Lines, tubes and drains: peripheral, central line HEENT: normocephalic, atraumatic Neck: non-tender, normal alignment Respiratory/Chest: chest wall non-tender, lungs clear Breasts: no masses Cardiovascular/Chest: normal peripheral pulses Abdomen: normal bowel sounds, non tender Genitourinary/Rectal: normal genital exam, heme negative stool Skin Exam: normal pigmentation 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, no motor/sensory deficits Lymphatic: anterior cervical Last 24 Hour Vital Signs Date Time Temp Pulse Resp B/P (MAP) Pulse Ox O2 Delivery O2 Flow Rate FiO2 10/17/16 11:25 97.2 95 20 178/109 100 Room Air 10/17/16 09:00 101 16 Room Air 10/17/16 08:41 107 164/116 10/17/16 08:40 164/116 10/17/16 08:40 164/116 10/17/16 08:09 96.0 107 20 164/116 100 Room Air 10/17/16 08:00 93 10/17/16 04:00 98.4 115 18 147/88 100 Room Air 10/17/16 04:00 110 10/17/16 02:13 98.2 105 20 177/99 100 Room Air 10/17/16 01:45 99.0 108 20 187/97 100 Room Air 10/17/16 01:15 99.0 108 20 187/97 100 Room Air 10/17/16 01:00 177/100 10/17/16 00:30 99.0 104 17 189/99 100 Room Air 10/17/16 00:16 193/104 10/16/16 23:56 100 193/104 10/16/16 22:45 193/104 10/16/16 22:30 100 16 Room Air 10/16/16 22:06 99.0 100 16 220/105 100 Room Air 10/16/16 21:37 174/121 10/16/16 19:45 99.0 96 18 192/110 100 Room Air 10/16/16 19:29 99.1 100 18 185/102 97 Room Air Intake and Output 10/17/16 10/18/16 19:00 07:00 Intake Total 240 ml Balance 240 ml Intake Oral 240 ml Laboratory Tests Test 10/16/16 20:18 10/17/16 05:22 10/17/16 10:40 White Blood Count 4.1 K/UL (4.8-10.8) L 6.1 K/UL (4.8-10.8) Red Blood Count 2.89 M/UL (4.70-6.10) L 3.03 M/UL (4.70-6.10) L Hemoglobin 9.1 G/DL (14.2-18.0) L 9.3 G/DL (14.2-18.0) L Hematocrit 26.9 % (42.0-52.0) L 28.6 % (42.0-52.0) L Mean Corpuscular Volume 93 FL (80-99) 94 FL (80-99) Mean Corpuscular Hemoglobin 31.4 PG (27.0-31.0) H 30.8 PG (27.0-31.0) Mean Corpuscular Hemoglobin Concent 33.7 G/DL (32.0-36.0) 32.7 G/DL (32.0-36.0) Red Cell Distribution Width 16.1 % (11.6-14.8) H 16.0 % (11.6-14.8) H Platelet Count 88 K/UL (150-450) L 94 K/UL (150-450) L Mean Platelet Volume 7.8 FL (6.5-10.1) 7.8 FL (6.5-10.1) Neutrophils (%) (Auto) % (45.0-75.0) % (45.0-75.0) Lymphocytes (%) (Auto) % (20.0-45.0) % (20.0-45.0) Monocytes (%) (Auto) % (1.0-10.0) % (1.0-10.0) Eosinophils (%) (Auto) % (0.0-3.0) % (0.0-3.0) Basophils (%) (Auto) % (0.0-2.0) % (0.0-2.0) Differential Total Cells Counted 100 Neutrophils % (Manual) 78 % (45-75) H Lymphocytes % (Manual) 14 % (20-45) L Monocytes % (Manual) 5 % (1-10) Eosinophils % (Manual) 2 % (0-3) Basophils % (Manual) 1 % (0-2) Band Neutrophils 0 % (0-8) Platelet Estimate Decreased L Platelet Morphology Normal Hypochromasia Anisocytosis 1+ Sodium Level 134 mEQ/L (135-145) L Potassium Level 3.4 mEQ/L (3.4-4.9) Chloride Level 96 mEQ/L (98-107) L Carbon Dioxide Level 23 mEQ/L (20-30) Anion Gap 15 (5-15) Blood Urea Nitrogen 21 mg/dL (7-23) Creatinine 2.5 mg/dL (0.7-1.2) H Estimat Glomerular Filtration Rate 37.0 mL/min (>60) Glucose Level 74 mg/dL (74-106) Calcium Level 8.5 mg/dL (8.6-10.2) L Total Bilirubin 0.3 mg/dL (0.0-1.2) Aspartate Amino Transf (AST/SGOT) 18 U/L (5-40) Alanine Aminotransferase (ALT/SGPT) 6 U/L (3-41) Alkaline Phosphatase 3048 U/L (40-129) H Total Creatine Kinase 65 U/L (38-174) Creatine Kinase MB 4.7 ng/mL (< 6.7) Creatine Kinase MB Relative Index 7.2 Troponin I < 0.30 ng/mL (<=0.30) < 0.30 ng/mL (<=0.30) Total Protein 5.7 g/dL (6.6-8.7) L Albumin 3.1 g/dL (3.5-5.2) L Globulin 2.6 g/dL Albumin/Globulin Ratio 1.1 (1.0-2.7) C-Reactive Protein, Quantitative 0.6 mg/dL (< 0.5) H Triglycerides Level 80 mg/dL (< 150) Cholesterol Level 164 mg/dL (< 200) LDL Cholesterol 92 mg/dL (60-99) HDL Cholesterol 56 mg/dL (> 60) Cholesterol/HDL Ratio 2.9 (3.3-4.4) L Thyroid Stimulating Hormone (TSH) 0.679 uIU/mL (0.300-4.500) Prothrombin Time 10.1 SEC (9.30-11.50) Prothromb Time International Ratio 1.0 (0.9-1.1) Activated Partial Thromboplast Time 31 SEC (23-33) Height (Feet): 5 Height (Inches): 5.00 Weight (Pounds): 140 Medications Current Medications Medications (Trade) Dose Ordered Sig/Anant Route PRN Reason Start Time Stop Time Status Last Admin Dose Admin Albuterol/ Ipratropium (DuoNeb 0.5-3(2.5)mg/3ml) 3 ml Q4H PRN HHN Shortness of Breath 10/16/16 22:30 10/21/16 22:29 Aspirin (ASA) 162 mg DAILY ORAL 10/17/16 09:00 11/16/16 08:59 10/17/16 08:42 Chlorhexidine Gluconate (Yessi-Hex 2%) 1 applic DAILY TOPIC 10/17/16 09:00 11/16/16 08:59 10/17/16 08:40 Clonidine HCl (Catapres) 0.2 mg DAILY ORAL 10/17/16 09:00 11/16/16 08:59 10/17/16 08:40 Diltiazem HCl (Cardizem) 10 mg Q1H PRN IV heart rate more than 120, 10/16/16 22:30 11/15/16 22:29 Divalproex Sodium (Depakote) 250 mg Q12HR ORAL 10/17/16 09:00 11/16/16 08:59 10/17/16 08:52 Enalaprilat (Vasotec) 2.5 mg Q4H PRN IV sbp more than 200 10/16/16 22:45 11/15/16 22:44 Enalaprilat (Vasotec) 2.5 mg Q6H PRN IV sbp more than 160 10/16/16 22:30 11/15/16 22:29 Hydromorphone HCl (Dilaudid) 2 mg Q3H PRN IVP Severe Pain (Pain Scale 7-10) 10/17/16 08:30 10/24/16 08:29 10/17/16 11:49 Labetalol HCl (Normodyne) 300 mg DAILY ORAL 10/17/16 09:00 11/16/16 08:59 10/17/16 08:41 Levetiracetam (Keppra) 1,000 mg BID ORAL 10/17/16 09:00 11/16/16 08:59 10/17/16 08:40 Lisinopril (Zestril) 10 mg DAILY ORAL 10/17/16 09:00 11/16/16 08:59 10/17/16 08:40 Minoxidil (Loniten) 2.5 mg Q4H PRN ORAL sbp > 180 10/16/16 22:45 11/15/16 22:44 Ondansetron HCl (Zofran) 4 mg Q6H PRN IVP Nausea & Vomiting 10/16/16 22:30 11/15/16 22:29 10/17/16 11:47 Pantoprazole (Protonix) 40 mg DAILY ORAL 10/17/16 09:00 11/16/16 08:59 10/17/16 08:40 Phenytoin (Dilantin) 200 mg BID ORAL 10/17/16 11:00 11/16/16 10:59 10/17/16 11:48 Polyethylene Glycol (Miralax) 17 gm DAILYPRN PRN ORAL Constipation 10/16/16 22:30 11/15/16 22:29 Temazepam (Restoril) 15 mg HSPRN PRN ORAL Insomnia 10/16/16 22:30 10/23/16 22:29 10/17/16 03:29 Assessment/Plan Problem List: (1) Hypertensive emergency ICD Codes: I16.1 - Hypertensive emergency SNOMED: 019199890186157 (2) Chest pain ICD Codes: R07.9 - Chest pain, unspecified SNOMED: 08670493 (3) ESRF (end stage renal failure) ICD Codes: N18.6 - End stage renal disease SNOMED: 04309720 (4) Pericarditis ICD Codes: I31.9 - Disease of pericardium, unspecified SNOMED: 3230548 Assessment/Plan serial ekg, troponin monitor bp HD by nephrology laxatives ID evaluation BETHEL PACK Oct 17, 2016 13:24
[2016-10-17] MEDS ORDERED: Minoxidil 2.5mg tab ORAL PRN (14:45)
[2016-10-17] MEDS: DiphenhydrAMINE 50mg/ml Inj IVP PRN ×2 (15:13→21:57)
--- NOTE | 2016-10-17 15:19 | Cardiology Progress Note ---
Assessment/Plan Assessment/Plan gareth [ain chronic pericardidits s/p nepfrectomy htn cva hx recent dc form [facility] 10/15!! 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 once bp controleld to dc home resummtts patach may need ccb procardial xl if bp not better on labatolo 200 mg bid, lisnopril 40 daily and tts 2 patch [id number] Objective Last 24 Hour Vital Signs Date Time Temp Pulse Resp B/P (MAP) Pulse Ox O2 Delivery O2 Flow Rate FiO2 10/17/16 15:13 157/80 10/17/16 13:28 175/102 10/17/16 12:00 102 10/17/16 11:25 97.2 95 20 178/109 100 Room Air 10/17/16 09:00 101 16 Room Air 10/17/16 08:41 107 164/116 10/17/16 08:40 164/116 10/17/16 08:40 164/116 10/17/16 08:09 96.0 107 20 164/116 100 Room Air 10/17/16 08:00 93 10/17/16 04:00 98.4 115 18 147/88 100 Room Air 10/17/16 04:00 110 10/17/16 02:13 98.2 105 20 177/99 100 Room Air 10/17/16 01:45 99.0 108 20 187/97 100 Room Air 10/17/16 01:15 99.0 108 20 187/97 100 Room Air 10/17/16 01:00 177/100 10/17/16 00:30 99.0 104 17 189/99 100 Room Air 10/17/16 00:16 193/104 10/16/16 23:56 100 193/104 10/16/16 22:45 193/104 10/16/16 22:30 100 16 Room Air 10/16/16 22:06 99.0 100 16 220/105 100 Room Air 10/16/16 21:37 174/121 10/16/16 19:45 99.0 96 18 192/110 100 Room Air 10/16/16 19:29 99.1 100 18 185/102 97 Room Air Intake and Output 10/17/16 10/18/16 19:00 07:00 Intake Total 360 ml Balance 360 ml Intake Oral 360 ml Laboratory Tests Test 10/16/16 20:18 10/17/16 05:22 10/17/16 10:40 White Blood Count 4.1 K/UL (4.8-10.8) L 6.1 K/UL (4.8-10.8) Red Blood Count 2.89 M/UL (4.70-6.10) L 3.03 M/UL (4.70-6.10) L Hemoglobin 9.1 G/DL (14.2-18.0) L 9.3 G/DL (14.2-18.0) L Hematocrit 26.9 % (42.0-52.0) L 28.6 % (42.0-52.0) L Mean Corpuscular Volume 93 FL (80-99) 94 FL (80-99) Mean Corpuscular Hemoglobin 31.4 PG (27.0-31.0) H 30.8 PG (27.0-31.0) Mean Corpuscular Hemoglobin Concent 33.7 G/DL (32.0-36.0) 32.7 G/DL (32.0-36.0) Red Cell Distribution Width 16.1 % (11.6-14.8) H 16.0 % (11.6-14.8) H Platelet Count 88 K/UL (150-450) L 94 K/UL (150-450) L Mean Platelet Volume 7.8 FL (6.5-10.1) 7.8 FL (6.5-10.1) Neutrophils (%) (Auto) % (45.0-75.0) % (45.0-75.0) Lymphocytes (%) (Auto) % (20.0-45.0) % (20.0-45.0) Monocytes (%) (Auto) % (1.0-10.0) % (1.0-10.0) Eosinophils (%) (Auto) % (0.0-3.0) % (0.0-3.0) Basophils (%) (Auto) % (0.0-2.0) % (0.0-2.0) Differential Total Cells Counted 100 Neutrophils % (Manual) 78 % (45-75) H Lymphocytes % (Manual) 14 % (20-45) L Monocytes % (Manual) 5 % (1-10) Eosinophils % (Manual) 2 % (0-3) Basophils % (Manual) 1 % (0-2) Band Neutrophils 0 % (0-8) Platelet Estimate Decreased L Platelet Morphology Normal Hypochromasia Anisocytosis 1+ Sodium Level 134 mEQ/L (135-145) L Potassium Level 3.4 mEQ/L (3.4-4.9) Chloride Level 96 mEQ/L (98-107) L Carbon Dioxide Level 23 mEQ/L (20-30) Anion Gap 15 (5-15) Blood Urea Nitrogen 21 mg/dL (7-23) Creatinine 2.5 mg/dL (0.7-1.2) H Estimat Glomerular Filtration Rate 37.0 mL/min (>60) Glucose Level 74 mg/dL (74-106) Calcium Level 8.5 mg/dL (8.6-10.2) L Total Bilirubin 0.3 mg/dL (0.0-1.2) Aspartate Amino Transf (AST/SGOT) 18 U/L (5-40) Alanine Aminotransferase (ALT/SGPT) 6 U/L (3-41) Alkaline Phosphatase 3048 U/L (40-129) H Total Creatine Kinase 65 U/L (38-174) Creatine Kinase MB 4.7 ng/mL (< 6.7) Creatine Kinase MB Relative Index 7.2 Troponin I < 0.30 ng/mL (<=0.30) < 0.30 ng/mL (<=0.30) Total Protein 5.7 g/dL (6.6-8.7) L Albumin 3.1 g/dL (3.5-5.2) L Globulin 2.6 g/dL Albumin/Globulin Ratio 1.1 (1.0-2.7) C-Reactive Protein, Quantitative 0.6 mg/dL (< 0.5) H Triglycerides Level 80 mg/dL (< 150) Cholesterol Level 164 mg/dL (< 200) LDL Cholesterol 92 mg/dL (60-99) HDL Cholesterol 56 mg/dL (> 60) Cholesterol/HDL Ratio 2.9 (3.3-4.4) L Thyroid Stimulating Hormone (TSH) 0.679 uIU/mL (0.300-4.500) Prothrombin Time 10.1 SEC (9.30-11.50) Prothromb Time International Ratio 1.0 (0.9-1.1) Activated Partial Thromboplast Time 31 SEC (23-33) SAMINA STERN Oct 17, 2016 15:18
--- NOTE | 2016-10-17 17:40 | Cardiology Report ---
APPROVED REPORT EXAM: Two-dimensional and M-mode echocardiogram with Doppler and color Doppler. INDICATION LV function M-Mode DIMENSIONS IVSd1.2 (0.7-1.1cm)Left Atrium (MM)3.2 (1.6-4.0cm) LVDd4.4 (3.5-5.6cm)Aortic Root2.7 (2.0-3.7cm) PWd1.4 (0.7-1.1cm)Aortic Cusp Exc.2.0 (1.5-2.0cm) LVDs2.3 (2.5-4.0cm) PWs2.2 cm Normal left ventricular chamber size, hyperdynamic systolic function and wall motion. Left ventricular ejection fraction estimated to be 70-75 %. Moderate left ventricular hypertrophy by 2-D. Trivial posterior and small pericardial effusion along lateral wall of LV. Mild left atrial enlargement. Right cardiac chamber sizes are within normal limits. Echogenic material noted in right atrium maybe dialysis catheter. Focal aortic valve sclerosis with adequate cusp excursion. Thickened mitral valve leaflets with normal excursion. Mitral annulus and aortic root calcification. Normal pulmonic valve structure. Normal tricuspid valve structure. IVC at normal size with physiologic collapse. A color flow and spectral Doppler study was performed and revealed: Moderate aortic regurgitation. Peak LVOT pressure gradient of 34 mmHg and a mean of 11 mmHg with late peaking profile suggestive of dynamic LVOT obstruction /cavity obliteration . Mild mitral regurgitation. Mitral diastolic velocities suggest reduced left ventricular relaxation c/w mild LV diastolic dysfunction (Grade I). Mild tricuspid regurgitation. Tricuspid systolic velocities suggests peak right ventricular systolic pressure of 42 mmHg, consistent with mild pulmonary hypertension.
--- NOTE | 2016-10-17 17:55 | Cardiology Report ---
APPROVED REPORT EKG Measurement Heart [id number] Normal sinus rhythm Possible Left atrial enlargement Prolonged QT Abnormal ECG
[2016-10-17] MEDS: Lactulose 20gm/30ml UDC ORAL SCH (18:00)
[2016-10-17] MEDS: Docusate 100mg cap ORAL SCH (18:20)
[2016-10-17] MEDS: Miralax 17gm pkt ORAL SCH (21:00)
--- NOTE | 2016-10-17 22:11 | Consultation ---
Consult Note Consult Note [id number] FAITH WOOD M.D. Oct 17, 2016 22:11
[2016-10-17 23:29] LABS: TROPONIN I < 0.30 ng/mL (<=0.30)
[2016-10-18] VITALS: BP 141/91
[2016-10-18] MEDS ORDERED: Vancomycin 1gm inj IVPB ONE (00:12)
[2016-10-18] MEDS: Aztreonam Inj 1 GM in D5W 55 ML IVPB SCH ×2 (00:22→09:39)
[2016-10-18] MEDS ORDERED: Vancomycin 1gm/D5W 275ml IVPB SCH ×2 (01:00)
[2016-10-18 04:00] VITALS: BP 142/97
[2016-10-18] MEDS: DiphenhydrAMINE 50mg/ml Inj IVP PRN ×3 (04:25→17:33)
[2016-10-18 08:20] VITALS: BP 142/78
[2016-10-18] MEDS: Dyna-Hex 2% Top Sol 8oz TOPIC SCH (08:32)
[2016-10-18] MEDS: Lisinopril 10mg tab ORAL SCH (08:34)
[2016-10-18] MEDS: Phenytoin 100mg cap ORAL SCH ×2 (08:35→20:28)
[2016-10-18] MEDS: Docusate 100mg cap ORAL SCH ×3 (08:35→17:31)
[2016-10-18] MEDS: Aspirin Baby 81mg ORAL SCH (08:36)
[2016-10-18] MEDS: Lactulose 20gm/30ml UDC ORAL SCH ×3 (08:37→17:34)
[2016-10-18 12:31] VITALS: BP 131/64
--- NOTE | 2016-10-18 12:36 | Pulmonology Progress Note ---
Assessment/Plan Problems: (1) Hypertensive emergency (2) Chest pain (3) ESRF (end stage renal failure) (4) Pericarditis Assessment/Plan bp is better still c/o tachycardia f/u by nephrology Subjective ROS Limited/Unobtainable: No Constitutional: Reports: no symptoms HEENT: Repors: no symptoms Respiratory: Reports: no symptoms Allergies: Coded Allergies: KETOROLAC (Verified Allergy, Mild, SOB, 06/28/11) METOCLOPRAMIDE (Verified Allergy, Mild, RASH, 06/28/11) NITROGLYCERIN (Verified Allergy, Mild, SEIZURES, 06/28/11) PENICILLINS (Verified Allergy, Mild, SOB, 06/28/11) PHENYTOIN (Verified Allergy, Mild, RASH, 06/28/11) ACETAMINOPHEN (Verified Allergy, Unknown, Shortness of Breath, 08/31/16) swelling throat, difficulty breathing CODEINE (Unverified Allergy, Unknown, 10/16/16) HEPARIN (Verified Allergy, Unknown, Shortness of Breath, 08/28/16) HYDRALAZINE (Verified Allergy, Unknown, 08/28/16) HYDROCODONE (Verified Allergy, Unknown, Shortness of Breath, 08/31/16) swelling throat, difficulty breathing IBUPROFEN (Verified Allergy, Unknown, RASH, 06/28/11) IODINE (Verified Allergy, Unknown, SHOCK, 06/28/11) POLYSTYRENE SULFONATE (Verified Allergy, Unknown, RASH, 06/28/11) PROMETHAZINE (Verified Allergy, Unknown, RASH, 06/28/11) Objective Last 24 Hour Vital Signs Date Time Temp Pulse Resp B/P (MAP) Pulse Ox O2 Delivery O2 Flow Rate FiO2 10/18/16 12:31 97.3 93 18 131/64 100 Room Air 10/18/16 08:34 92 145/78 10/18/16 08:34 145/78 10/18/16 08:20 98.4 108 18 142/78 96 Room Air 10/18/16 08:00 102 10/18/16 07:23 108 16 Room Air 10/18/16 04:00 97.2 20 142/97 99 Room Air 21 10/18/16 04:00 84 10/18/16 00:00 97.0 85 20 141/91 99 Room Air 10/18/16 00:00 87 10/17/16 20:01 97.0 89 21 153/81 99 Room Air 10/17/16 20:00 91 10/17/16 19:30 90 16 Room Air 21 10/17/16 18:27 97 162/107 10/17/16 16:00 87 10/17/16 15:30 97.3 90 20 151/80 95 Room Air 10/17/16 15:13 157/80 10/17/16 13:28 175/102 Intake and Output 10/18/16 10/19/16 19:00 07:00 Intake Total 230 ml Balance 230 ml Intake Oral 120 ml IV Total 110 ml General Appearance: WD/WN HEENT: normocephalic, atraumatic Respiratory/Chest: chest wall non-tender, lungs clear Cardiovascular: normal peripheral pulses, normal rate Abdomen: normal bowel sounds, soft, non tender Genitourinary: normal external genitalia Extremities: no cyanosis Microbiology Date/Time Source Procedure Growth Status 10/17/16 02:22 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 Complete Laboratory Tests 10/17/16 22:45: Troponin I < 0.30 Current Medications Medications (Trade) Dose Ordered Sig/Anant Route PRN Reason Start Time Stop Time Status Last Admin Dose Admin Albuterol/ Ipratropium (DuoNeb 0.5-3(2.5)mg/3ml) 3 ml Q4H PRN HHN Shortness of Breath 10/16/16 22:30 10/21/16 22:29 Aspirin (ASA) 162 mg DAILY ORAL 10/17/16 09:00 11/16/16 08:59 10/18/16 08:36 Aztreonam 0.5 gm/ Dextrose 55 ml @ 110 mls/hr Q12HR IVPB 10/18/16 21:00 10/25/16 20:59 Chlorhexidine Gluconate (Yessi-Hex 2%) 1 applic DAILY TOPIC 10/17/16 09:00 11/16/16 08:59 10/18/16 08:32 Clonidine HCl (Catapres TTS-2) 1 patch QWEEK TDERMAL 10/17/16 16:00 11/16/16 15:59 10/17/16 15:13 Diltiazem HCl (Cardizem) 10 mg Q1H PRN IV heart rate more than 120, 10/16/16 22:30 11/15/16 22:29 Diphenhydramine HCl (Benadryl) 25 mg Q6H PRN IVP Itching 10/17/16 13:45 11/16/16 13:44 10/18/16 11:25 Divalproex Sodium (Depakote) 250 mg Q12HR ORAL 10/17/16 09:00 11/16/16 08:59 10/18/16 08:36 Docusate Sodium (Colace) 100 mg THREE TIMES A DAY ORAL 10/17/16 18:00 11/16/16 17:59 10/18/16 08:35 Hydromorphone HCl (Dilaudid) 2 mg Q3H PRN IVP Severe Pain (Pain Scale 7-10) 10/17/16 08:30 10/24/16 08:29 10/18/16 11:29 Labetalol HCl (Normodyne) 200 mg BID ORAL 10/17/16 18:00 11/16/16 08:59 10/18/16 08:34 Lactulose (Cephulac) 30 gm THREE TIMES A DAY ORAL 10/17/16 18:00 11/16/16 17:59 Levetiracetam (Keppra) 1,000 mg Q12HR ORAL 10/17/16 21:00 11/16/16 08:59 10/18/16 08:35 Lisinopril (Zestril) 40 mg DAILY ORAL 10/18/16 09:00 11/17/16 08:59 10/18/16 08:34 Mineral Oil (Fleet's Mineral Oil Enema) 133 ml EVERY OTHER DAY RECTAL 10/19/16 09:00 11/18/16 08:59 Minoxidil (Loniten) 2.5 mg Q4H PRN ORAL sbp > 160 10/17/16 14:45 11/16/16 14:44 10/17/16 13:28 Ondansetron HCl (Zofran) 4 mg Q6H PRN IVP Nausea & Vomiting 10/16/16 22:30 11/15/16 22:29 10/17/16 11:47 Pantoprazole (Protonix) 40 mg DAILY ORAL 10/17/16 09:00 11/16/16 08:59 10/18/16 08:35 Phenytoin (Dilantin) 200 mg Q12HR ORAL 10/17/16 21:00 11/16/16 10:59 10/18/16 08:35 Polyethylene Glycol (Miralax) 17 gm BEDTIME ORAL 10/17/16 21:00 11/16/16 20:59 Polyethylene Glycol (Miralax) 17 gm DAILYPRN PRN ORAL Constipation 10/16/16 22:30 11/15/16 22:29 Sennosides (Senokot) 8.6 mg DAILY ORAL 10/18/16 09:00 11/17/16 08:59 Temazepam (Restoril) 15 mg HSPRN PRN ORAL Insomnia 10/16/16 22:30 10/23/16 22:29 10/17/16 03:29 Vancomycin HCl (Vanco rx to dose) 1 ea DAILY PRN MISC Per rx protocol 10/17/16 22:15 11/16/16 22:14 BETHEL PACK Oct 18, 2016 12:36
--- NOTE | 2016-10-18 12:40 | Consultation ---
DATE OF CONSULTATION: 10/16/2016 ADDENDUM Assessment: The patient is a 30-year-old male with multiple medical problems including history of chronic pericarditis, etiology and the exact kind of management for this is not totally clear, the patient mentioned being on IV antibiotics for several months and has been scheduled in November for pericardiectomy. PLAN: 1. We will continue the patient on IV Vancomycin and Rocephin. 2. Monitor CBC. 3. Monitor BMP. 4. We will follow recommendation. I asked the patient to provide the information regarding the physician who is managing and following with antibiotics to get further information and close followup of antibiotic treatment at this medical center. Thank you, Dr. Hayward, for allowing me to participate in the care of this patient. I will follow the patient with you during this hospitalization. Jorge L Nina M.D. DR: KYARA JOB#: [id number] CC:
--- NOTE | 2016-10-18 12:40 | Consultation ---
DATE OF CONSULTATION: 10/17/2016 NOTE: INCOMPLETE DICTATION CONSULTING PHYSICIAN: Jero Oneal M.D. REFERRING PHYSICIAN: Kaylah Hayward M.D. REASON FOR REFERRAL: Chest pain. History of present illness: This is a very unfortunate 30-year-old gentleman with a history of severe hypertension, has been uncontrolled previously and requiring bilateral nephrectomies back in 2005. The patient is on dialysis. He has had a stroke as a result of the issues. He has had frequent hospitalizations in different facilities for chest pains. He has had extensive evaluations and has had chronic recurrent pericarditis and he is scheduled to undergo pericardiectomy at [facility]. The patient apparently has been in his usual state of health, yesterday was getting dialysis, and towards the end of dialysis started having a rapid heart rate in the 130s, blood pressure went up, and he started getting some shortness of breath, and was having some pain in the chest as well. He had the chest pain since then. The pain is present no matter what position he is in, as opposed to his usual pericarditis that gets better with leaning forward or towards the side, this time the pain is not resolving and it has been continuously present. This is the pain that he apparently had before the same sensation he has had before but just the duration has been prolonged. The patient does not have any PND, does not have any orthopnea, he sleeps relatively flat although he has an adjustable bed at home. He no longer is experiencing the palpitations at the present time. He did have elevated blood pressure during the episode of palpitations yesterday as well but he no longer is having that. He was brought to the emergency room of [facility]. He has been admitted to the hospital and this consultation subsequently requested. The patient's records from [facility] as well as prior records from [place] as well as [facility] have been reviewed. He was apparently discharged on _ from [facility] and he was hospitalized _ through . The discharge summary indicates that the patient had presented with complaints of generalized abdominal pain with substernal chest discomfort, some vomiting, burning sensation in his chest and apparently he subsequently was discharged home. He was felt to have had chest pains multifactorial, not cardiac in origin. Narcotic analgesics were considered. The patient continued to request IV Dilaudid only even after explanation of the patient's symptomatology and objective findings he was requesting, subsequently refused to undergo dialysis as recommended by leather shaver until he received IV Dilaudid and IV Dilaudid was never given. Oral narcotics were offered only while in the hospital but not given a prescription as outpatient. The patient subsequently was discharged to do his dialysis as outpatient. Those records indicate that the patient has a history of chest pain, chronic pericarditis, seizure disorder, secondary hypertension, reflux esophagitis, hiatal hernia, gastric erosion, gastric ulcer, chronic gastritis, and drug-seeking behavior as his principal diagnosis. He also has a history of seizures as well and impaired gait and mobility, chronic renal failure, left spastic hemiplegia, anemia, E. coli, bacteremia, end-stage renal disease, hypertensive kidney disease, coagulopathy, right lower quadrant abdominal pain, and pancytopenia also been noted on the patient's medical records. Allergies: He is reportedly allergic to many medications that include heparin, Ketorolac, morphine, nitroglycerin, Dilantin, promethazine, Reglan, [place], and "others" . REVIEW OF SYSTEMS: Gastrointestinal: Positive for nausea and vomiting. Genitourinary: He does not make any urine. He is on hemodialysis. Pulmonary: Negative. Constitutional: Negative. Neurological: Left-sided weakness. PHYSICAL EXAMINATION: GENERAL: Shows to be a young gentleman, cushingoid faces. NECK: Supple. No jugular venous distention. LUNGS: Appear to be clear to auscultation and percussion. Cardiac: S1 is normal. S2 is normal. Regular rate and rhythm. No heaves or thrills noted. ABDOMEN: Soft and nontender. Positive bowel sounds. Extremities: Left-sided weakness is noted. Contracted on the left upper extremity. He is able to move the left lower extremities to a degree, although not normally. Laboratory and diagnostic data: His electrocardiogram in the emergency room shows what appears to be sinus rhythm. No significant ST or T-wave abnormalities are noted on this EKG. The EKG from the paramedics also was reviewed and was negative. His telemetry data so far has also been negative. Preliminary echocardiogram shows hyperdynamic systolic function, ejection fraction 70% to 75%, trivial posterior and small pericardial effusion along the lateral wall of the LV, dialysis catheter noted, moderate aortic regurgitation, peak gradient across the left ventricular outflow tract of 34, mild diastolic relaxation abnormality, pulmonary artery systolic pressure is 42. ASSESSMENT AND PLAN: 1. Hypertension. 2. Recurrent chronic chest pain. 3. History of pericarditis, chronic in nature. 4. Hypertensive nephropathy, status post bilateral nephrectomies. 5. History of cerebrovascular accident. 6. Pain resolution with Dilaudid history. Dr. Hayward, this patient was seen in cardiac consultation. The patient's laboratory values Jero Oneal M.D. DR: Alphonse JOB#: [id number] CC:
--- NOTE | 2016-10-18 12:40 | Consultation ---
DATE OF CONSULTATION: 10/17/2016 ADDENDUM: CONSULTING PHYSICIAN: Jero Oneal M.D. REFERRING PHYSICIAN: Kaylah Hayward M.D. PHYSICAL EXAMINATION: Vital Signs: The patient's vital signs at the present time, blood pressure has been anywhere between 164/116 to 175/102. The patient has not had his clonidine TTS patch on board as of yesterday when he was in the emergency room. Laboratory Data: His labs, white count 6.1, hemoglobin 9.3, and platelet count of 94,000. His sodium is 134, potassium 3.4, chloride 96, bicarbonate 23, BUN 21, creatinine 2.5, and glucose 74. Two sets of cardiac enzymes are negative. Alkaline phosphatase of 3048, the level is as high as 3500 to as low as 2100 between August and September 2016 for the alkaline phosphatase, therefore this is not a new issue for him. Two sets of cardiac enzymes are negative. CRP is only 0.6. Total cholesterol 164 with LDL of 92, HDL of 56, and TSH 0.679. His INR is 1 and PTT of 31. ASSESSMENT AND PLAN: 1. Chronic recurrent chest pain, multifactorial, nonischemic likely. 2. Chronic pericarditis. 3. Status post nephrectomy, bilateral. 4. Thrombocytopenia. 5. History of seizure disorder. 6. History of cerebrovascular accident. Dr. Hayward, this patient was seen in cardiac consultation. The patient seems to have had several hospitalizations, most recently at [facility] it appears according to [facility] Everywhere. No [facility] records on recent evaluation over the past five or six years. At this point because cardiac enzymes are negative, I would probably not further evaluate for ischemia, although he is scheduled to undergo pericardiectomy at [facility] and most likely, he will have other cardiac testing prior to that. He tells me his surgery is on 11/09/2016. He will need to follow up with his usual it desktop support technician, Dr. Grider, for further evaluation of that. In the meantime because his blood pressure is elevated, I requested that his clonidine patch be resumed as he is telling me that he is able to take the TTS patch. He has been previously on Procardia XL, which he is no longer receiving apparently. Also, his minoxidil has been discontinued as it was felt according to the patient that was to be contributing to his pericarditis and pericardial symptoms. I will follow the patient along with you as needed; however, I suspect that once his blood pressure is better controlled that he may be able to discharge home with followup with his primary care doctor. Jero Oneal M.D. DR: Alphonse JOB#: [id number] CC:
--- NOTE | 2016-10-18 12:41 | Consultation ---
DATE OF CONSULTATION: INFECTIOUS DISEASES CONSULTATION CONSULTING PHYSICIAN: Jorge L Nina M.D. REQUESTING PHYSICIAN: Kaylah Hayward M.D. REASON FOR CONSULTATION: Evaluation of the patient for pericarditis. History Of Present Illness: The patient is a 30-year-old male with multiple medical problems as listed below who was admitted to this medical center due to chest pain. The patient has a history of chronic pericarditis since 2010. The patient mentioned that this is a bacterial etiology; however, he could not tell me what is the exact etiology. According to him, since April 2016, the patient has been on IV Rocephin and vancomycin every 72 hours. The patient has a history of multiple pericardiocentesis and pericardial window. The patient now has been admitted to this medical center due to the chest pain, and Infectious Diseases consultation has been requested for further evaluation of the patient regarding the patient's antibiotic management. PAST MEDICAL HISTORY: 1. pericarditis. 2. History of hypertension. 3. History of asthma. 4. History of end-stage renal disease, on hemodialysis. Allergies: Codeine, heparin, hydralazine, ibuprofen, iodine, metoclopramide, nitroglycerin, penicillin, promethazine (for the full list, please review the patient's chart). FAMILY HISTORY: Noncontributory. Review Of Systems: A 10-point review was done and except what is mentioned above has been negative. The patient denied having fever, chills, nausea, vomiting, diarrhea, cough, or shortness of breath. PHYSICAL EXAMINATION: Vital Signs: Temperature is 97.1 degrees, blood pressure 153/81, pulse 86, and respiratory rate 18. HEENT: Mild pale conjunctivae. No icterus. NECK: No lymphadenopathy. CHEST: Clear. HEART: S1 and S2. ABDOMEN: Soft. EXTREMITIES: No cyanosis at this time. NEUROLOGIC: Alert and awake. Skin: The patient has a right tunnel subclavian catheter since April of 2016. Laboratory and Diagnostic Data: White blood cells 6, hemoglobin 9.2, and platelets 94,000. BUN 21 and creatinine 2.5. Liver function tests are unremarkable. Alkaline phosphatase 3488. Chest x-ray . Echo shows ejection fraction of 70% to 75%. Mild left ventricular hypertrophy. Jorge L Nina M.D. DR: RADHA JOB#: [id number] CC:
--- NOTE | 2016-10-18 13:05 | Pulmonology Progress Note ---
Assessment/Plan Problems: (1) Hypertensive emergency (2) Chest pain (3) ESRF (end stage renal failure) (4) Pericarditis Assessment/Plan bp is better got dilyzed c/o tachycardia while HD Subjective ROS Limited/Unobtainable: No Constitutional: Reports: no symptoms HEENT: Repors: no symptoms Respiratory: Reports: no symptoms Cardiovascular: Reports: no symptoms Allergies: Coded Allergies: KETOROLAC (Verified Allergy, Mild, SOB, 06/28/11) METOCLOPRAMIDE (Verified Allergy, Mild, RASH, 06/28/11) NITROGLYCERIN (Verified Allergy, Mild, SEIZURES, 06/28/11) PENICILLINS (Verified Allergy, Mild, SOB, 06/28/11) PHENYTOIN (Verified Allergy, Mild, RASH, 06/28/11) ACETAMINOPHEN (Verified Allergy, Unknown, Shortness of Breath, 08/31/16) swelling throat, difficulty breathing CODEINE (Unverified Allergy, Unknown, 10/16/16) HEPARIN (Verified Allergy, Unknown, Shortness of Breath, 08/28/16) HYDRALAZINE (Verified Allergy, Unknown, 08/28/16) HYDROCODONE (Verified Allergy, Unknown, Shortness of Breath, 08/31/16) swelling throat, difficulty breathing IBUPROFEN (Verified Allergy, Unknown, RASH, 06/28/11) IODINE (Verified Allergy, Unknown, SHOCK, 06/28/11) POLYSTYRENE SULFONATE (Verified Allergy, Unknown, RASH, 06/28/11) PROMETHAZINE (Verified Allergy, Unknown, RASH, 06/28/11) Objective Last 24 Hour Vital Signs Date Time Temp Pulse Resp B/P (MAP) Pulse Ox O2 Delivery O2 Flow Rate FiO2 10/18/16 08:34 92 145/78 10/18/16 08:34 145/78 10/18/16 08:20 98.4 108 18 142/78 96 Room Air 10/18/16 08:00 102 10/18/16 07:23 108 16 Room Air 10/18/16 04:00 97.2 20 142/97 99 Room Air 21 10/18/16 04:00 84 10/18/16 00:00 97.0 85 20 141/91 99 Room Air 10/18/16 00:00 87 10/17/16 20:01 97.0 89 21 153/81 99 Room Air 10/17/16 20:00 91 10/17/16 19:30 90 16 Room Air 21 10/17/16 18:27 97 162/107 10/17/16 16:00 87 10/17/16 15:30 97.3 90 20 151/80 95 Room Air 10/17/16 15:13 157/80 10/17/16 13:28 175/102 Intake and Output 10/18/16 10/19/16 19:00 07:00 Intake Total 230 ml Balance 230 ml Intake Oral 120 ml IV Total 110 ml General Appearance: WD/WN HEENT: normocephalic, atraumatic Respiratory/Chest: chest wall non-tender, lungs clear Cardiovascular: normal peripheral pulses, normal rate Abdomen: normal bowel sounds, soft, non tender Genitourinary: normal external genitalia Extremities: no cyanosis Neurologic/Psychiatric: manager floor II-XII grossly normal, abnormal gait Lymphatic: no groin adenopathy Musculoskeletal: no effusion Microbiology Date/Time Source Procedure Growth Status 10/17/16 02:22 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 Complete Laboratory Tests 10/17/16 22:45: Troponin I < 0.30 Current Medications Medications (Trade) Dose Ordered Sig/Anant Route PRN Reason Start Time Stop Time Status Last Admin Dose Admin Albuterol/ Ipratropium (DuoNeb 0.5-3(2.5)mg/3ml) 3 ml Q4H PRN HHN Shortness of Breath 10/16/16 22:30 10/21/16 22:29 Aspirin (ASA) 162 mg DAILY ORAL 10/17/16 09:00 11/16/16 08:59 10/18/16 08:36 Aztreonam 0.5 gm/ Dextrose 55 ml @ 110 mls/hr Q12HR IVPB 10/18/16 21:00 10/25/16 20:59 Chlorhexidine Gluconate (Yessi-Hex 2%) 1 applic DAILY TOPIC 10/17/16 09:00 11/16/16 08:59 10/18/16 08:32 Clonidine HCl (Catapres TTS-2) 1 patch QWEEK TDERMAL 10/17/16 16:00 11/16/16 15:59 10/17/16 15:13 Diltiazem HCl (Cardizem) 10 mg Q1H PRN IV heart rate more than 120, 10/16/16 22:30 11/15/16 22:29 Diphenhydramine HCl (Benadryl) 25 mg Q6H PRN IVP Itching 10/17/16 13:45 11/16/16 13:44 10/18/16 11:25 Divalproex Sodium (Depakote) 250 mg Q12HR ORAL 10/17/16 09:00 11/16/16 08:59 10/18/16 08:36 Docusate Sodium (Colace) 100 mg THREE TIMES A DAY ORAL 10/17/16 18:00 11/16/16 17:59 10/18/16 08:35 Hydromorphone HCl (Dilaudid) 2 mg Q3H PRN IVP Severe Pain (Pain Scale 7-10) 10/17/16 08:30 10/24/16 08:29 10/18/16 11:29 Labetalol HCl (Normodyne) 200 mg BID ORAL 10/17/16 18:00 11/16/16 08:59 10/18/16 08:34 Lactulose (Cephulac) 30 gm THREE TIMES A DAY ORAL 10/17/16 18:00 11/16/16 17:59 Levetiracetam (Keppra) 1,000 mg Q12HR ORAL 10/17/16 21:00 11/16/16 08:59 10/18/16 08:35 Lisinopril (Zestril) 40 mg DAILY ORAL 10/18/16 09:00 11/17/16 08:59 10/18/16 08:34 Mineral Oil (Fleet's Mineral Oil Enema) 133 ml EVERY OTHER DAY RECTAL 10/19/16 09:00 11/18/16 08:59 Minoxidil (Loniten) 2.5 mg Q4H PRN ORAL sbp > 160 10/17/16 14:45 11/16/16 14:44 10/17/16 13:28 Ondansetron HCl (Zofran) 4 mg Q6H PRN IVP Nausea & Vomiting 10/16/16 22:30 11/15/16 22:29 10/17/16 11:47 Pantoprazole (Protonix) 40 mg DAILY ORAL 10/17/16 09:00 11/16/16 08:59 10/18/16 08:35 Phenytoin (Dilantin) 200 mg Q12HR ORAL 10/17/16 21:00 11/16/16 10:59 10/18/16 08:35 Polyethylene Glycol (Miralax) 17 gm BEDTIME ORAL 10/17/16 21:00 11/16/16 20:59 Polyethylene Glycol (Miralax) 17 gm DAILYPRN PRN ORAL Constipation 10/16/16 22:30 11/15/16 22:29 Sennosides (Senokot) 8.6 mg DAILY ORAL 10/18/16 09:00 11/17/16 08:59 Temazepam (Restoril) 15 mg HSPRN PRN ORAL Insomnia 10/16/16 22:30 10/23/16 22:29 10/17/16 03:29 Vancomycin HCl (Vanco rx to dose) 1 ea DAILY PRN MISC Per rx protocol 10/17/16 22:15 11/16/16 22:14 BETHEL PACK Oct 18, 2016 13:05
[2016-10-18 16:40] VITALS: BP 137/71
--- NOTE | 2016-10-18 17:49 | Infectious Diseases Prog Note ---
Assessment/Plan Assessment/Plan A: The patient is a 30-year-old male with history of chronic pericarditis, etiology and the exact kind of management for this is not totally clear, ? Ch pericarditis. History of hypertension. Asthma. history of end-stage renal disease, on hemodialysis. PLAN: will continue the patient on IV Vancomycin and Rocephin d# 2 Monitor CBC Monitor BMP. will try to contact out side MDas to get more information re plan of AB Rx Subjective Constitutional: Denies: no symptoms, fever, chills, fatigue, anorexia, drenching sweats, other Allergies: Coded Allergies: KETOROLAC (Verified Allergy, Mild, SOB, 06/28/11) METOCLOPRAMIDE (Verified Allergy, Mild, RASH, 06/28/11) NITROGLYCERIN (Verified Allergy, Mild, SEIZURES, 06/28/11) PENICILLINS (Verified Allergy, Mild, SOB, 06/28/11) PHENYTOIN (Verified Allergy, Mild, RASH, 06/28/11) ACETAMINOPHEN (Verified Allergy, Unknown, Shortness of Breath, 08/31/16) swelling throat, difficulty breathing CODEINE (Unverified Allergy, Unknown, 10/16/16) HEPARIN (Verified Allergy, Unknown, Shortness of Breath, 08/28/16) HYDRALAZINE (Verified Allergy, Unknown, 08/28/16) HYDROCODONE (Verified Allergy, Unknown, Shortness of Breath, 08/31/16) swelling throat, difficulty breathing IBUPROFEN (Verified Allergy, Unknown, RASH, 06/28/11) IODINE (Verified Allergy, Unknown, SHOCK, 06/28/11) POLYSTYRENE SULFONATE (Verified Allergy, Unknown, RASH, 06/28/11) PROMETHAZINE (Verified Allergy, Unknown, RASH, 06/28/11) Objective Vital Signs Last 24 Hour Vital Signs Date Time Temp Pulse Resp B/P (MAP) Pulse Ox O2 Delivery O2 Flow Rate FiO2 10/18/16 17:32 97 128/75 10/18/16 16:40 97.3 85 18 137/71 99 Room Air 10/18/16 16:00 88 10/18/16 12:31 97.3 93 18 131/64 100 Room Air 10/18/16 12:00 87 10/18/16 08:34 92 145/78 10/18/16 08:34 145/78 10/18/16 08:20 98.4 108 18 142/78 96 Room Air 10/18/16 08:00 102 10/18/16 07:23 108 16 Room Air 21 10/18/16 04:00 97.2 20 142/97 99 Room Air 21 10/18/16 04:00 84 10/18/16 00:00 97.0 85 20 141/91 99 Room Air 10/18/16 00:00 87 10/17/16 20:01 97.0 89 21 153/81 99 Room Air 10/17/16 20:00 91 10/17/16 19:30 90 16 Room Air 10/17/16 18:27 97 162/107 Height (Feet): 5 Height (Inches): 5.00 Weight (Pounds): 140 HEENT: anicteric Respiratory/Chest: normal breath sounds Cardiovascular: regularly irregular Abdomen: non distended Microbiology Date/Time Source Procedure Growth Status 10/17/16 02:22 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 Complete Laboratory Tests Test 10/17/16 22:45 Troponin I < 0.30 ng/mL (<=0.30) Current Medications Medications (Trade) Dose Ordered Sig/Anant Route PRN Reason Start Time Stop Time Status Last Admin Dose Admin Albuterol/ Ipratropium (DuoNeb 0.5-3(2.5)mg/3ml) 3 ml Q4H PRN HHN Shortness of Breath 10/16/16 22:30 10/21/16 22:29 Aspirin (ASA) 162 mg DAILY ORAL 10/17/16 09:00 11/16/16 08:59 10/18/16 08:36 Aztreonam 0.5 gm/ Dextrose 55 ml @ 110 mls/hr Q12HR IVPB 10/18/16 21:00 10/25/16 20:59 Chlorhexidine Gluconate (Yessi-Hex 2%) 1 applic DAILY TOPIC 10/17/16 09:00 11/16/16 08:59 10/18/16 08:32 Clonidine HCl (Catapres TTS-2) 1 patch QWEEK TDERMAL 10/17/16 16:00 11/16/16 15:59 10/17/16 15:13 Diltiazem HCl (Cardizem) 10 mg Q1H PRN IV heart rate more than 120, 10/16/16 22:30 11/15/16 22:29 Diphenhydramine HCl (Benadryl) 25 mg Q6H PRN IVP Itching 10/17/16 13:45 11/16/16 13:44 10/18/16 17:33 Divalproex Sodium (Depakote) 250 mg Q12HR ORAL 10/17/16 09:00 11/16/16 08:59 10/18/16 08:36 Docusate Sodium (Colace) 100 mg THREE TIMES A DAY ORAL 10/17/16 18:00 11/16/16 17:59 10/18/16 17:31 Hydromorphone HCl (Dilaudid) 2 mg Q3H PRN IVP Severe Pain (Pain Scale 7-10) 10/17/16 08:30 10/24/16 08:29 10/18/16 17:33 Labetalol HCl (Normodyne) 200 mg BID ORAL 10/17/16 18:00 11/16/16 08:59 10/18/16 17:32 Lactulose (Cephulac) 30 gm THREE TIMES A DAY ORAL 10/17/16 18:00 11/16/16 17:59 Levetiracetam (Keppra) 1,000 mg Q12HR ORAL 10/17/16 21:00 11/16/16 08:59 10/18/16 08:35 Lisinopril (Zestril) 40 mg DAILY ORAL 10/18/16 09:00 11/17/16 08:59 10/18/16 08:34 Mineral Oil (Fleet's Mineral Oil Enema) 133 ml EVERY OTHER DAY RECTAL 10/19/16 09:00 11/18/16 08:59 Minoxidil (Loniten) 2.5 mg Q4H PRN ORAL sbp > 160 10/17/16 14:45 11/16/16 14:44 10/17/16 13:28 Ondansetron HCl (Zofran) 4 mg Q6H PRN IVP Nausea & Vomiting 10/16/16 22:30 11/15/16 22:29 10/17/16 11:47 Pantoprazole (Protonix) 40 mg DAILY ORAL 10/17/16 09:00 11/16/16 08:59 10/18/16 08:35 Phenytoin (Dilantin) 200 mg Q12HR ORAL 10/17/16 21:00 11/16/16 10:59 10/18/16 08:35 Polyethylene Glycol (Miralax) 17 gm BEDTIME ORAL 10/17/16 21:00 11/16/16 20:59 Polyethylene Glycol (Miralax) 17 gm DAILYPRN PRN ORAL Constipation 10/16/16 22:30 11/15/16 22:29 Sennosides (Senokot) 8.6 mg DAILY ORAL 10/18/16 09:00 11/17/16 08:59 Temazepam (Restoril) 15 mg HSPRN PRN ORAL Insomnia 10/16/16 22:30 10/23/16 22:29 10/17/16 03:29 Vancomycin HCl (Vanco rx to dose) 1 ea DAILY PRN MISC Per rx protocol 10/17/16 22:15 11/16/16 22:14 FAITH WOOD M.D. Oct 18, 2016 17:49
--- NOTE | 2016-10-18 19:20 | Cardiology Progress Note ---
Assessment/Plan Assessment/Plan gareth [ain chronic pericardidits s/p nepfrectomy htn cva hx echo shwoed goo lv fucntion lvh no sig pericardial effusion bp is nwo at basel ien no myonecrosis dc tele home soon pt understand to fue with primary cardiologsit dr simon Subjective Cardiovascular: Denies: chest pain - not nwo Respiratory: Reports: shortness of breath - with dialysis Gastrointestinal/Abdominal: Denies: abdominal pain Genitourinary: Reports: no symptoms Objective Last 24 Hour Vital Signs Date Time Temp Pulse Resp B/P (MAP) Pulse Ox O2 Delivery O2 Flow Rate FiO2 10/18/16 17:32 97 128/75 10/18/16 16:40 97.3 85 18 137/71 99 Room Air 10/18/16 16:00 88 10/18/16 12:31 97.3 93 18 131/64 100 Room Air 10/18/16 12:00 87 10/18/16 08:34 92 145/78 10/18/16 08:34 145/78 10/18/16 08:20 98.4 108 18 142/78 96 Room Air 10/18/16 08:00 102 10/18/16 07:23 108 16 Room Air 21 10/18/16 04:00 97.2 20 142/97 99 Room Air 21 10/18/16 04:00 84 10/18/16 00:00 97.0 85 20 141/91 99 Room Air 10/18/16 00:00 87 10/17/16 20:01 97.0 89 21 153/81 99 Room Air 10/17/16 20:00 91 10/17/16 19:30 90 16 Room Air 21 General Appearance: no apparent distress, alert Neck: supple Cardiovascular: normal rate, regular rhythm Respiratory/Chest: lungs clear, normal breath sounds Abdomen: non tender, soft Extremities: non-tender, no swelling Intake and Output 10/18/16 10/19/16 19:00 07:00 Intake Total 470 ml Balance 470 ml Intake Oral 360 ml IV Total 110 ml Laboratory Tests Test 10/17/16 22:45 Troponin I < 0.30 ng/mL (<=0.30) Microbiology Date/Time Source Procedure Growth Status 10/17/16 02:22 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 Complete SAMINA STERN Oct 18, 2016 19:19
[2016-10-18 20:00] VITALS: BP 122/74
[2016-10-18] MEDS ORDERED: cefTRIAXone 1 GM in D5W 55 ML IVPB SCH (20:00)
[2016-10-18] MEDS: Miralax 17gm pkt ORAL SCH (20:29)
[2016-10-18] MEDS ORDERED: Aztreonam 0.5gm/D5W 55ml IVPB SCH ×2 (21:00)
[2016-10-18 23:27] LABS: TROPONIN I < 0.30 ng/mL (<=0.30)
[2016-10-19] VITALS (7 sets, daily range): BP systolic 117–152; BP diastolic 42–78
[2016-10-19] MEDS: DiphenhydrAMINE 50mg/ml Inj IVP PRN ×4 (00:47→19:52)
--- NOTE | 2016-10-19 06:15 | Consultation ---
DATE OF CONSULTATION: NEPHROLOGY CONSULTATION CHIEF COMPLAINT: Upper gastrointestinal bleeding. History Of Present Illness: This is a 30-year-old male, who is one of my dialysis patients. The patient has been my patient for many years. The patient has been calling me for the last several weeks about upper gastrointestinal bleeding. The patient has had this problem for the last several months. The patient underwent numerous upper endoscopies, which revealed an upper gastric ulcer. The patient has been treated with PPIs multiple times, but the upper gastrointestinal bleeding recurs despite the treatment. PAST MEDICAL HISTORY: 1. End-stage renal failure, on dialysis. 2. Developmental disorder. 3. Hypertensive cardiovascular disease. 4. Seizure disorder. 5. Severe anemia of chronic kidney disease. 6. Narcotic dependence. Medications: Baby aspirin, clonidine, diltiazem, Benadryl, Depakote, sodium docusate, Dilaudid p.r.n., labetalol, Keppra, lisinopril, minoxidil, Zofran, Protonix, Dilantin, and polyethylene glycol. Allergies: Listed to Tylenol, codeine, heparin, hydralazine, ibuprofen, iodine, ketorolac, Reglan, and penicillin. FAMILY HISTORY: Unremarkable. Social History: The patient lives at home with his mother. Habits: He is a nonsmoker and nondrinker. There is no history of illicit drug abuse. Review Of Systems: HEENT: Hearing and eyesight are normal. Endocrine: Significant for severe secondary hyperparathyroidism. Respiratory: Denies shortness of breath, cough, or hemoptysis. Cardiovascular: He has cardiomyopathy. Neurological: Significant for severe muscle dystrophy, developmental disorder, and seizure disorder. 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 PHYSICAL EXAMINATION: General: This is a young male, who is in no acute distress. Vital Signs: Blood pressure 128/75, pulse 97 and regular, respirations 20, and temperature 97.3 degrees. HEENT: He has bilateral exophthalmos. Neck: Supple. Trachea midline. There is no lymphadenopathy or thyromegaly. LUNGS: Bilateral rhonchi. Heart: Regular rate and rhythm. He has a grade 3 systolic ejection murmur. CHEST: He has skeletal deformities of his rib cage. ABDOMEN: Soft and nontender. Bowel sounds are active. Extremities: He has multiple skeletal abnormalities and muscle atrophy. 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 Neurological: He is alert and oriented x4. Cranial nerves II through XII intact. Laboratory And Ancillary Data: CBC shows hematocrit 28.6, white count 6.1, and platelet count is 94,000, which is at his baseline. Serum chemistry, troponin level less than 0.3. Sodium two days ago was 134, potassium 3.4, creatinine 2.5 post dialysis. Calcium 8.5. Alkaline phosphatase is 3448, which is at his baseline. ASSESSMENT: 1. Recurrent upper gastrointestinal bleed. 2. End-stage renal failure, on dialysis. 3. Developmental disorder. 4. Hypertensive cardiovascular disease. 5. Seizure disorder. 6. Severe anemia of chronic kidney disease. 7. Narcotic dependence. PLAN: 1. Repeat esophagogastroduodenoscopy. 2. Continue home medications. 3. Hemodialysis on the patient's schedule which is Sunday, Sunday, and Sunday. Nitza Gaines M.D. DR: [facility]OU[facility] JOB#: [id number] CC:
[2016-10-19] MEDS: Phenytoin 100mg cap ORAL SCH ×2 (08:40→20:25)
[2016-10-19] MEDS: Aspirin Baby 81mg ORAL SCH (08:40)
[2016-10-19] MEDS: Lisinopril 10mg tab ORAL SCH (08:41)
[2016-10-19] MEDS: Lactulose 20gm/30ml UDC ORAL SCH ×4 (08:42→18:09)
[2016-10-19] MEDS: Dyna-Hex 2% Top Sol 8oz TOPIC SCH (08:42)
[2016-10-19] MEDS: Docusate 100mg cap ORAL SCH ×3 (08:42→18:09)
[2016-10-19] MEDS ORDERED: Fleet's Mineral Oil Enema RECTAL SCH (09:00)
--- NOTE | 2016-10-19 11:51 | Pulmonology Progress Note ---
Assessment/Plan Problems: (1) Hypertensive emergency (2) Chest pain (3) ESRF (end stage renal failure) (4) Pericarditis Assessment/Plan bp is better got dilyzed c/o tachycardia while HD wants to go to care home d/w skilled nursing case manager PT note reviewed, they are recommending snif Subjective ROS Limited/Unobtainable: No Constitutional: Reports: no symptoms HEENT: Repors: no symptoms Allergies: Coded Allergies: KETOROLAC (Verified Allergy, Mild, SOB, 06/28/11) METOCLOPRAMIDE (Verified Allergy, Mild, RASH, 06/28/11) NITROGLYCERIN (Verified Allergy, Mild, SEIZURES, 06/28/11) PENICILLINS (Verified Allergy, Mild, SOB, 06/28/11) PHENYTOIN (Verified Allergy, Mild, RASH, 06/28/11) ACETAMINOPHEN (Verified Allergy, Unknown, Shortness of Breath, 08/31/16) swelling throat, difficulty breathing CODEINE (Unverified Allergy, Unknown, 10/16/16) HEPARIN (Verified Allergy, Unknown, Shortness of Breath, 08/28/16) HYDRALAZINE (Verified Allergy, Unknown, 08/28/16) HYDROCODONE (Verified Allergy, Unknown, Shortness of Breath, 08/31/16) swelling throat, difficulty breathing IBUPROFEN (Verified Allergy, Unknown, RASH, 06/28/11) IODINE (Verified Allergy, Unknown, SHOCK, 06/28/11) POLYSTYRENE SULFONATE (Verified Allergy, Unknown, RASH, 06/28/11) PROMETHAZINE (Verified Allergy, Unknown, RASH, 06/28/11) Objective Last 24 Hour Vital Signs Date Time Temp Pulse Resp B/P (MAP) Pulse Ox O2 Delivery O2 Flow Rate FiO2 10/19/16 08:41 94 119/78 10/19/16 08:41 119/78 10/19/16 08:00 97.7 94 21 119/78 96 Room Air 10/19/16 08:00 87 10/19/16 07:42 95 18 Room Air 10/19/16 04:00 99 10/19/16 04:00 97.7 96 24 117/42 99 Room Air 10/19/16 00:00 91 10/19/16 00:00 97.7 91 20 152/74 100 Room Air 10/18/16 21:08 97.3 10/18/16 20:00 97.5 88 22 122/74 100 Room Air 10/18/16 20:00 82 10/18/16 19:50 102 18 Room Air 10/18/16 17:32 97 128/75 10/18/16 16:40 97.3 85 18 137/71 99 Room Air 10/18/16 16:00 88 10/18/16 12:31 97.3 93 18 131/64 100 Room Air 10/18/16 12:00 87 General Appearance: cachetic HEENT: normocephalic Respiratory/Chest: chest wall non-tender, lungs clear Cardiovascular: normal peripheral pulses, normal rate Abdomen: normal bowel sounds, soft, non tender Genitourinary: normal external genitalia Skin: no rash 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 Complete 10/17/16 02:22 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 Complete Laboratory Tests 10/18/16 22:30: Troponin I < 0.30 10/19/16 09:10: Random Vancomycin Level 14.1 Current Medications Medications (Trade) Dose Ordered Sig/Anant Route PRN Reason Start Time Stop Time Status Last Admin Dose Admin Albuterol/ Ipratropium (DuoNeb 0.5-3(2.5)mg/3ml) 3 ml Q4H PRN HHN Shortness of Breath 10/16/16 22:30 10/21/16 22:29 Aspirin (ASA) 162 mg DAILY ORAL 10/17/16 09:00 11/16/16 08:59 10/19/16 08:40 Ceftriaxone Sodium 1 gm/ Dextrose 55 ml @ 110 mls/hr Q24H IVPB 10/18/16 20:00 10/25/16 19:59 10/18/16 20:27 Chlorhexidine Gluconate (Yessi-Hex 2%) 1 applic DAILY TOPIC 10/17/16 09:00 11/16/16 08:59 10/19/16 08:42 Clonidine HCl (Catapres TTS-2) 1 patch QWEEK TDERMAL 10/17/16 16:00 11/16/16 15:59 10/17/16 15:13 Diltiazem HCl (Cardizem) 10 mg Q1H PRN IV heart rate more than 120, 10/16/16 22:30 11/15/16 22:29 Diphenhydramine HCl (Benadryl) 25 mg Q6H PRN IVP Itching 10/17/16 13:45 11/16/16 13:44 10/19/16 06:49 Divalproex Sodium (Depakote) 250 mg Q12HR ORAL 10/17/16 09:00 11/16/16 08:59 10/19/16 08:41 Docusate Sodium (Colace) 100 mg THREE TIMES A DAY ORAL 10/17/16 18:00 11/16/16 17:59 10/19/16 08:42 Hydromorphone HCl (Dilaudid) 2 mg Q3H PRN IVP Severe Pain (Pain Scale 7-10) 10/17/16 08:30 10/24/16 08:29 10/19/16 09:53 Labetalol HCl (Normodyne) 200 mg BID ORAL 10/17/16 18:00 11/16/16 08:59 10/19/16 08:41 Lactulose (Cephulac) 30 gm THREE TIMES A DAY ORAL 10/17/16 18:00 11/16/16 17:59 Levetiracetam (Keppra) 1,000 mg Q12HR ORAL 10/17/16 21:00 11/16/16 08:59 10/19/16 08:40 Lisinopril (Zestril) 40 mg DAILY ORAL 10/18/16 09:00 11/17/16 08:59 10/19/16 08:41 Mineral Oil (Fleet's Mineral Oil Enema) 133 ml EVERY OTHER DAY RECTAL 10/19/16 09:00 11/18/16 08:59 Minoxidil (Loniten) 2.5 mg Q4H PRN ORAL sbp > 160 10/17/16 14:45 11/16/16 14:44 10/17/16 13:28 Ondansetron HCl (Zofran) 4 mg Q6H PRN IVP Nausea & Vomiting 10/16/16 22:30 11/15/16 22:29 10/19/16 06:45 Pantoprazole (Protonix) 40 mg DAILY ORAL 10/17/16 09:00 11/16/16 08:59 10/19/16 08:41 Phenytoin (Dilantin) 200 mg Q12HR ORAL 10/17/16 21:00 11/16/16 10:59 10/19/16 08:40 Polyethylene Glycol (Miralax) 17 gm BEDTIME ORAL 10/17/16 21:00 11/16/16 20:59 Polyethylene Glycol (Miralax) 17 gm DAILYPRN PRN ORAL Constipation 10/16/16 22:30 11/15/16 22:29 Sennosides (Senokot) 8.6 mg DAILY ORAL 10/18/16 09:00 11/17/16 08:59 Temazepam (Restoril) 15 mg HSPRN PRN ORAL Insomnia 10/16/16 22:30 10/23/16 22:29 10/17/16 03:29 Vancomycin HCl (Vanco rx to dose) 1 ea DAILY PRN MISC Per rx protocol 10/17/16 22:15 11/16/16 22:14 BETHEL PACK Oct 19, 2016 11:51
[2016-10-19] MEDS ORDERED: Vancomycin 1gm in D5W 275ml IVPB ONE (14:00)
--- NOTE | 2016-10-19 16:00 | Nephrology Progress Note ---
Assessment/Plan Plan CP - atypical. Patient had complete cardiac w/u numerous times and recently - negative. Recurrent GI bleed is due to uremic gastritis - currently stable. ESRD - HD tomorrow. Otherwise patient @ baseline. Subjective Subjective No new c/o Objective Objective Last 24 Hour Vital Signs Date Time Temp Pulse Resp B/P (MAP) Pulse Ox O2 Delivery O2 Flow Rate FiO2 10/19/16 12:00 97.7 94 21 122/72 97 Room Air 10/19/16 08:41 94 119/78 10/19/16 08:41 119/78 10/19/16 08:00 97.7 94 21 119/78 96 Room Air 10/19/16 08:00 87 10/19/16 07:42 95 18 Room Air 10/19/16 04:00 99 10/19/16 04:00 97.7 96 24 117/42 99 Room Air 10/19/16 00:00 91 10/19/16 00:00 97.7 91 20 152/74 100 Room Air 10/18/16 21:08 97.3 10/18/16 20:00 97.5 88 22 122/74 100 Room Air 10/18/16 20:00 82 10/18/16 19:50 102 18 Room Air 10/18/16 17:32 97 128/75 10/18/16 16:40 97.3 85 18 137/71 99 Room Air 10/18/16 16:00 88 Intake and Output 10/19/16 10/20/16 19:00 07:00 Intake Total 183.708 ml Balance 183.708 ml IV Total 183.708 ml Laboratory Tests 10/18/16 22:30: Troponin I < 0.30 10/19/16 09:10: Random Vancomycin Level 14.1 Height (Feet): 5 Height (Inches): 5.00 Weight (Pounds): 104 Objective CV RR Lungs CTA Abd SNT. BS + E No CCE. Multiple deformities + muscle atrophy. Lt. Carpopedal contracture. ARNIE SWEET Oct 19, 2016 16:00
[2016-10-19] MEDS ORDERED: DuoNeb 0.5-3(2.5)mg/3ml neb HHN PRN (17:15)
[2016-10-19] MEDS ORDERED: Minoxidil 2.5mg tab ORAL PRN (17:15)
[2016-10-19] MEDS ORDERED: Miralax 17gm pkt ORAL PRN (17:15)
[2016-10-19] MEDS ORDERED: Diltiazem 25mg/5ml IV PRN (17:30)
[2016-10-19] MEDS: cefTRIAXone 1 GM in D5W 55 ML IVPB SCH (20:25)
[2016-10-19] MEDS: Miralax 17gm pkt ORAL SCH (20:26)
[2016-10-20] VITALS (7 sets, daily range): BP systolic 97–144; BP diastolic 53–96
[2016-10-20] MEDS: DiphenhydrAMINE 50mg/ml Inj IVP PRN ×4 (01:54→21:03)
[2016-10-20 04:35] LABS: MEAN CORPUSCULAR HEMOGLOBIN 31.9 PG (27.0-31.0); MEAN CORPUSCULAR HGB CONC 33.5 G/DL (32.0-36.0); MEAN CORPUSCULAR VOLUME 95 FL (80-99); MEAN PLATELET VOLUME 6.1 FL (6.5-10.1); PLATELET COUNT 60 K/UL (150-450); RED BLOOD COUNT 2.49 M/UL (4.70-6.10); WHITE BLOOD COUNT 3.5 K/UL (4.8-10.8)
[2016-10-20 05:11] LABS: CALCIUM 8.2 mg/dL (8.6-10.2); CREATININE 5.7 mg/dL (0.7-1.2); GLOMERULAR FILTRATION RATE 14.3 mL/min (>60); POTASSIUM 4.3 mEQ/L (3.4-4.9)
[2016-10-20 06:00] LABS: LYMPHOCYTES % (MANUAL) 30 % (20-45); NEUTROPHILS % (MANUAL) 66 % (45-75); TOTAL CELLS COUNTED 100
[2016-10-20] MEDS ORDERED: Heparin Sod 1000 units/ml 10ml IV PRN ×2 (06:00)
[2016-10-20 06:01] LABS: ANISOCYTOSIS 1+; BAND NEUTROPHILS % (MANUAL) 0 % (0-8); BASOPHILS % (MANUAL) 0 % (0-2); EOSINOPHILS % (MANUAL) 0 % (0-3); HYPOCHROMASIA 2+; PLATELET ESTIMATE DECREASED; PLATELET MORPHOLOGY NORMAL
[2016-10-20] MEDS: Aspirin Baby 81mg ORAL SCH (08:34)
[2016-10-20] MEDS: Docusate 100mg cap ORAL SCH ×3 (08:36→18:01)
[2016-10-20] MEDS: Phenytoin 100mg cap ORAL SCH ×2 (08:36→21:03)
[2016-10-20] MEDS: Dyna-Hex 2% Top Sol 8oz TOPIC SCH (08:41)
[2016-10-20] MEDS: Lisinopril 20mg tab ORAL SCH (08:42)
[2016-10-20] MEDS: Lactulose 20gm/30ml UDC ORAL SCH ×3 (08:42→17:54)
[2016-10-20] MEDS ORDERED: D5W 275ml ONE (08:59)
[2016-10-20] MEDS ORDERED: 1/2 NS 1000ml IV ONE (08:59)
[2016-10-20] MEDS ORDERED: Tubing IV Secondary IV ONE ×2 (08:59→18:35)
--- NOTE | 2016-10-20 10:26 | Nephrology Progress Note ---
Assessment/Plan Plan CP - atypical. Patient had complete cardiac w/u numerous times and recently - negative. Recurrent GI bleed is due to uremic gastritis - currently stable. ESRD - HD done earlier. stable run. Tolerated 3.5 L UF! Otherwise patient @ baseline. Subjective Subjective Atypical CP Objective Objective Last 24 Hour Vital Signs Date Time Temp Pulse Resp B/P (MAP) Pulse Ox O2 Delivery O2 Flow Rate FiO2 10/20/16 08:47 99 16 Room Air 10/20/16 08:42 97/53 10/20/16 08:42 107 97/53 10/20/16 08:29 97.5 107 20 97/53 100 Room Air 10/20/16 06:23 Room Air 10/20/16 06:16 Room Air 10/20/16 04:26 98.5 95 21 116/67 100 Room Air 10/20/16 00:00 98.0 95 18 120/73 100 Room Air 10/19/16 20:19 96 18 Room Air 10/19/16 20:00 97.5 88 19 120/62 99 Room Air 10/19/16 18:08 85 120/68 10/19/16 17:07 97.6 85 20 120/68 100 Room Air 10/19/16 16:00 97.1 81 20 124/60 98 Room Air 10/19/16 12:00 97.7 94 21 122/72 97 Room Air Laboratory Tests 10/20/16 04:00: White Blood Count 3.5L, Red Blood Count 2.49L, Hemoglobin 8.0L, Hematocrit 23.8L , Mean Corpuscular Volume 95, Mean Corpuscular Hemoglobin 31.9H, Mean Corpuscular Hemoglobin Concent 33.5, Red Cell Distribution Width 16.0H, Platelet Count 60L, Mean Platelet Volume 6.1L, Neutrophils (%) (Auto) , Lymphocytes (%) (Auto) , Monocytes (%) (Auto) , Eosinophils (%) (Auto) , Basophils (%) (Auto) , Differential Total Cells Counted 100, Neutrophils % ( Manual) 66, Lymphocytes % (Manual) 30, Monocytes % (Manual) 4, Eosinophils % ( Manual) 0, Basophils % (Manual) 0, Band Neutrophils 0, Platelet Estimate DecreasedL, Platelet Morphology Normal, Hypochromasia 2+, Anisocytosis 1+, Sodium Level 134L, Potassium Level 4.3, Chloride Level 93L, Carbon Dioxide Level 27, Anion Gap 14, Blood Urea Nitrogen 48H, Creatinine 5.7H, Estimat Glomerular Filtration Rate 14.3, Glucose Level 134H, Calcium Level 8.2L Height (Feet): 5 Height (Inches): 5.00 Weight (Pounds): 100 Objective CV RR Lungs CTA Abd SNT. BS + E No CCE. Multiple deformities + muscle atrophy. Lt. Carpopedal contracture. ARNIE SWEET Oct 20, 2016 10:26
--- NOTE | 2016-10-20 11:07 | Infectious Diseases Prog Note ---
Assessment/Plan Assessment/Plan A: The patient is a 30-year-old male with history of chronic pericarditis, etiology and the exact kind of management for this is not totally clear History of hypertension. Asthma. history of end-stage renal disease, on hemodialysis. PLAN: will continue the patient on IV Vancomycin and Rocephin d# 4 for now , upon DC pt may resume plan of AB rx followed by home health Monitor CBC Monitor BMP. will try to contact out side MDas to get more information re plan of AB Rx, ( pt still trying to get the primary MD who is managing Ab Rx ) Subjective Constitutional: Denies: no symptoms, fever, chills, fatigue, anorexia, drenching sweats, other Allergies: Coded Allergies: KETOROLAC (Verified Allergy, Mild, SOB, 06/28/11) METOCLOPRAMIDE (Verified Allergy, Mild, RASH, 06/28/11) NITROGLYCERIN (Verified Allergy, Mild, SEIZURES, 06/28/11) PENICILLINS (Verified Allergy, Mild, SOB, 06/28/11) PHENYTOIN (Verified Allergy, Mild, RASH, 06/28/11) ACETAMINOPHEN (Verified Allergy, Unknown, Shortness of Breath, 08/31/16) swelling throat, difficulty breathing CODEINE (Unverified Allergy, Unknown, 10/16/16) HEPARIN (Verified Allergy, Unknown, Shortness of Breath, 08/28/16) HYDRALAZINE (Verified Allergy, Unknown, 08/28/16) HYDROCODONE (Verified Allergy, Unknown, Shortness of Breath, 08/31/16) swelling throat, difficulty breathing IBUPROFEN (Verified Allergy, Unknown, RASH, 06/28/11) IODINE (Verified Allergy, Unknown, SHOCK, 06/28/11) POLYSTYRENE SULFONATE (Verified Allergy, Unknown, RASH, 06/28/11) PROMETHAZINE (Verified Allergy, Unknown, RASH, 06/28/11) Objective Vital Signs Last 24 Hour Vital Signs Date Time Temp Pulse Resp B/P (MAP) Pulse Ox O2 Delivery O2 Flow Rate FiO2 10/20/16 09:01 97.5 10/20/16 08:47 99 16 Room Air 10/20/16 08:42 97/53 10/20/16 08:42 107 97/53 10/20/16 08:29 97.5 107 20 97/53 100 Room Air 10/20/16 06:23 Room Air 10/20/16 06:16 Room Air 10/20/16 04:26 98.5 95 21 116/67 100 Room Air 10/20/16 00:00 98.0 95 18 120/73 100 Room Air 10/19/16 20:19 96 18 Room Air 10/19/16 20:00 97.5 88 19 120/62 99 Room Air 10/19/16 18:08 85 120/68 10/19/16 17:07 97.6 85 20 120/68 100 Room Air 10/19/16 16:00 97.1 81 20 124/60 98 Room Air 10/19/16 12:00 97.7 94 21 122/72 97 Room Air Height (Feet): 5 Height (Inches): 5.00 Weight (Pounds): 100 HEENT: anicteric Respiratory/Chest: no respiratory distress Cardiovascular: regularly irregular Abdomen: no organomegaly Laboratory Tests Test 10/20/16 04:00 White Blood Count 3.5 K/UL (4.8-10.8) L Red Blood Count 2.49 M/UL (4.70-6.10) L Hemoglobin 8.0 G/DL (14.2-18.0) L Hematocrit 23.8 % (42.0-52.0) L Mean Corpuscular Volume 95 FL (80-99) Mean Corpuscular Hemoglobin 31.9 PG (27.0-31.0) H Mean Corpuscular Hemoglobin Concent 33.5 G/DL (32.0-36.0) Red Cell Distribution Width 16.0 % (11.6-14.8) H Platelet Count 60 K/UL (150-450) L Mean Platelet Volume 6.1 FL (6.5-10.1) L Neutrophils (%) (Auto) % (45.0-75.0) Lymphocytes (%) (Auto) % (20.0-45.0) Monocytes (%) (Auto) % (1.0-10.0) Eosinophils (%) (Auto) % (0.0-3.0) Basophils (%) (Auto) % (0.0-2.0) Differential Total Cells Counted 100 Neutrophils % (Manual) 66 % (45-75) Lymphocytes % (Manual) 30 % (20-45) Monocytes % (Manual) 4 % (1-10) Eosinophils % (Manual) 0 % (0-3) Basophils % (Manual) 0 % (0-2) Band Neutrophils 0 % (0-8) Platelet Estimate Decreased L Platelet Morphology Normal Hypochromasia 2+ Anisocytosis 1+ Sodium Level 134 mEQ/L (135-145) L Potassium Level 4.3 mEQ/L (3.4-4.9) Chloride Level 93 mEQ/L (98-107) L Carbon Dioxide Level 27 mEQ/L (20-30) Anion Gap 14 (5-15) Blood Urea Nitrogen 48 mg/dL (7-23) H Creatinine 5.7 mg/dL (0.7-1.2) H Estimat Glomerular Filtration Rate 14.3 mL/min (>60) Glucose Level 134 mg/dL (74-106) H Calcium Level 8.2 mg/dL (8.6-10.2) L Current Medications Medications (Trade) Dose Ordered Sig/Anant Route PRN Reason Start Time Stop Time Status Last Admin Dose Admin Albuterol/ Ipratropium (DuoNeb 0.5-3(2.5)mg/3ml) 3 ml Q4H PRN HHN Shortness of Breath 10/19/16 17:15 10/21/16 17:14 Aspirin (ASA) 162 mg DAILY ORAL 10/20/16 09:00 11/16/16 08:59 10/20/16 08:34 Ceftriaxone Sodium 1 gm/ Dextrose 55 ml @ 110 mls/hr Q24H IVPB 10/19/16 20:00 10/25/16 19:59 10/19/16 20:25 Chlorhexidine Gluconate (Yessi-Hex 2%) 1 applic DAILY TOPIC 10/20/16 09:00 11/16/16 08:59 10/20/16 08:41 Clonidine HCl (Catapres TTS-2) 1 patch QWEEK TDERMAL 10/24/16 16:00 11/16/16 15:59 Diphenhydramine HCl (Benadryl) 25 mg Q6H PRN IVP Itching 10/19/16 19:00 11/16/16 18:59 10/20/16 08:41 Divalproex Sodium (Depakote) 250 mg Q12HR ORAL 10/19/16 21:00 11/16/16 08:59 10/20/16 08:40 Docusate Sodium (Colace) 100 mg THREE TIMES A DAY ORAL 10/19/16 18:00 11/16/16 17:59 10/20/16 08:36 Epoetin Rajinder (Procrit (for ESRD on dialysis)) 7,000 units SUN-SUN-SUN SUBQ 10/20/16 21:00 11/19/16 20:59 Heparin Sodium (Porcine) (Heparin Sod 1000 units/ml 10ml) 2,000 unit ONCE PRN IV FOR HD USE 10/20/16 06:00 10/20/16 21:00 Hydromorphone HCl (Dilaudid) 2 mg Q3H PRN IVP Severe Pain (Pain Scale 7-10) 10/19/16 19:30 10/24/16 19:29 10/20/16 08:31 Labetalol HCl (Normodyne) 200 mg BID ORAL 10/19/16 18:00 11/16/16 08:59 10/19/16 18:08 Lactulose (Cephulac) 30 gm THREE TIMES A DAY ORAL 10/19/16 18:00 11/16/16 17:59 Levetiracetam (Keppra) 1,000 mg Q12HR ORAL 10/19/16 21:00 11/16/16 08:59 10/20/16 08:35 Lisinopril (Prinivil) 40 mg DAILY ORAL 10/20/16 09:00 11/17/16 08:59 Mineral Oil (Fleet's Mineral Oil Enema) 133 ml EVERY OTHER DAY RECTAL 10/21/16 09:00 11/18/16 08:59 Minoxidil (Loniten) 2.5 mg Q4H PRN ORAL sbp > 160 10/19/16 17:15 11/16/16 17:14 Ondansetron HCl (Zofran) 4 mg Q6H PRN IVP Nausea & Vomiting 10/19/16 17:15 11/15/16 17:14 10/19/16 20:33 Pantoprazole (Protonix) 40 mg DAILY ORAL 10/20/16 09:00 11/16/16 08:59 10/20/16 08:34 Phenytoin (Dilantin) 200 mg Q12HR ORAL 10/19/16 21:00 11/16/16 10:59 10/20/16 08:36 Polyethylene Glycol (Miralax) 17 gm BEDTIME ORAL 10/19/16 21:00 11/16/16 20:59 Polyethylene Glycol (Miralax) 17 gm DAILYPRN PRN ORAL Constipation 10/19/16 17:15 11/15/16 17:14 Sennosides (Senokot) 8.6 mg DAILY ORAL 10/20/16 09:00 11/17/16 08:59 Sodium Chloride 1,000 ml @ 500 mls/hr Q2H PRN IVLG sbp<90 during hd 10/20/16 06:00 10/20/16 21:00 Temazepam (Restoril) 15 mg HSPRN PRN ORAL Insomnia 10/19/16 20:00 10/23/16 19:59 Vancomycin HCl (Vanco rx to dose) 1 ea DAILY PRN MISC Per rx protocol 10/19/16 17:15 11/18/16 17:14 FAITH WOOD M.D. Oct 20, 2016 11:07
--- NOTE | 2016-10-20 14:39 | Pulmonology Progress Note ---
Assessment/Plan Problems: (1) Hypertensive emergency (2) Chest pain (3) ESRF (end stage renal failure) (4) Pericarditis Assessment/Plan bp is better got dilyzed wants to go to longterm d/w hospice case manager dc to longterm when bed available Subjective ROS Limited/Unobtainable: No Constitutional: Reports: no symptoms HEENT: Repors: no symptoms Respiratory: Reports: no symptoms Allergies: Coded Allergies: KETOROLAC (Verified Allergy, Mild, SOB, 06/28/11) METOCLOPRAMIDE (Verified Allergy, Mild, RASH, 06/28/11) NITROGLYCERIN (Verified Allergy, Mild, SEIZURES, 06/28/11) PENICILLINS (Verified Allergy, Mild, SOB, 06/28/11) PHENYTOIN (Verified Allergy, Mild, RASH, 06/28/11) ACETAMINOPHEN (Verified Allergy, Unknown, Shortness of Breath, 08/31/16) swelling throat, difficulty breathing CODEINE (Unverified Allergy, Unknown, 10/16/16) HEPARIN (Verified Allergy, Unknown, Shortness of Breath, 08/28/16) HYDRALAZINE (Verified Allergy, Unknown, 08/28/16) HYDROCODONE (Verified Allergy, Unknown, Shortness of Breath, 08/31/16) swelling throat, difficulty breathing IBUPROFEN (Verified Allergy, Unknown, RASH, 06/28/11) IODINE (Verified Allergy, Unknown, SHOCK, 06/28/11) POLYSTYRENE SULFONATE (Verified Allergy, Unknown, RASH, 06/28/11) PROMETHAZINE (Verified Allergy, Unknown, RASH, 06/28/11) Objective Last 24 Hour Vital Signs Date Time Temp Pulse Resp B/P (MAP) Pulse Ox O2 Delivery O2 Flow Rate FiO2 10/20/16 12:08 97.5 10/20/16 12:00 97.3 99 20 142/73 100 Room Air 10/20/16 08:47 99 16 Room Air 10/20/16 08:42 97/53 10/20/16 08:42 107 97/53 10/20/16 08:29 97.5 107 20 97/53 100 Room Air 10/20/16 06:23 Room Air 10/20/16 06:16 Room Air 10/20/16 04:26 98.5 95 21 116/67 100 Room Air 10/20/16 00:00 98.0 95 18 120/73 100 Room Air 10/19/16 20:19 96 18 Room Air 10/19/16 20:00 97.5 88 19 120/62 99 Room Air 10/19/16 18:08 85 120/68 10/19/16 17:07 97.6 85 20 120/68 100 Room Air 10/19/16 16:00 97.1 81 20 124/60 98 Room Air General Appearance: WD/WN HEENT: normocephalic, atraumatic, PERRL Respiratory/Chest: chest wall non-tender, lungs clear Cardiovascular: normal peripheral pulses, normal rate Abdomen: normal bowel sounds, soft, non tender Genitourinary: normal external genitalia Skin: no rash Laboratory Tests 10/20/16 04:00: White Blood Count 3.5L, Red Blood Count 2.49L, Hemoglobin 8.0L, Hematocrit 23.8L , Mean Corpuscular Volume 95, Mean Corpuscular Hemoglobin 31.9H, Mean Corpuscular Hemoglobin Concent 33.5, Red Cell Distribution Width 16.0H, Platelet Count 60L, Mean Platelet Volume 6.1L, Neutrophils (%) (Auto) , Lymphocytes (%) (Auto) , Monocytes (%) (Auto) , Eosinophils (%) (Auto) , Basophils (%) (Auto) , Differential Total Cells Counted 100, Neutrophils % ( Manual) 66, Lymphocytes % (Manual) 30, Monocytes % (Manual) 4, Eosinophils % ( Manual) 0, Basophils % (Manual) 0, Band Neutrophils 0, Platelet Estimate DecreasedL, Platelet Morphology Normal, Hypochromasia 2+, Anisocytosis 1+, Sodium Level 134L, Potassium Level 4.3, Chloride Level 93L, Carbon Dioxide Level 27, Anion Gap 14, Blood Urea Nitrogen 48H, Creatinine 5.7H, Estimat Glomerular Filtration Rate 14.3, Glucose Level 134H, Calcium Level 8.2L Current Medications Medications (Trade) Dose Ordered Sig/Anant Route PRN Reason Start Time Stop Time Status Last Admin Dose Admin Albuterol/ Ipratropium (DuoNeb 0.5-3(2.5)mg/3ml) 3 ml Q4H PRN HHN Shortness of Breath 10/19/16 17:15 10/21/16 17:14 Aspirin (ASA) 162 mg DAILY ORAL 10/20/16 09:00 11/16/16 08:59 9/15/17 08:34 Ceftriaxone Sodium 1 gm/ Dextrose 55 ml @ 110 mls/hr Q24H IVPB 10/19/16 20:00 10/25/16 19:59 10/19/16 20:25 Chlorhexidine Gluconate (Yessi-Hex 2%) 1 applic DAILY TOPIC 10/20/16 09:00 11/16/16 08:59 10/20/16 08:41 Clonidine HCl (Catapres TTS-2) 1 patch QWEEK TDERMAL 10/24/16 16:00 11/16/16 15:59 Diphenhydramine HCl (Benadryl) 25 mg Q6H PRN IVP Itching 10/19/16 19:00 11/16/16 18:59 10/20/16 08:41 Divalproex Sodium (Depakote) 250 mg Q12HR ORAL 10/19/16 21:00 11/16/16 08:59 10/20/16 08:40 Docusate Sodium (Colace) 100 mg THREE TIMES A DAY ORAL 10/19/16 18:00 11/16/16 17:59 10/20/16 08:36 Epoetin Rajinder (Procrit (for ESRD on dialysis)) 7,000 units SUN-SUN-SUN SUBQ 10/20/16 21:00 11/19/16 20:59 Heparin Sodium (Porcine) (Heparin Sod 1000 units/ml 10ml) 2,000 unit ONCE PRN IV FOR HD USE 10/20/16 06:00 10/20/16 21:00 Hydromorphone HCl (Dilaudid) 2 mg Q3H PRN IVP Severe Pain (Pain Scale 7-10) 10/19/16 19:30 10/24/16 19:29 10/20/16 11:38 Labetalol HCl (Normodyne) 200 mg BID ORAL 10/19/16 18:00 11/16/16 08:59 10/19/16 18:08 Lactulose (Cephulac) 30 gm THREE TIMES A DAY ORAL 10/19/16 18:00 11/16/16 17:59 Levetiracetam (Keppra) 1,000 mg Q12HR ORAL 10/19/16 21:00 11/16/16 08:59 10/20/16 08:35 Lisinopril (Prinivil) 40 mg DAILY ORAL 10/20/16 09:00 11/17/16 08:59 Mineral Oil (Fleet's Mineral Oil Enema) 133 ml EVERY OTHER DAY RECTAL 10/21/16 09:00 11/18/16 08:59 Minoxidil (Loniten) 2.5 mg Q4H PRN ORAL sbp > 160 10/19/16 17:15 11/16/16 17:14 Ondansetron HCl (Zofran) 4 mg Q6H PRN IVP Nausea & Vomiting 10/19/16 17:15 11/15/16 17:14 10/19/16 20:33 Pantoprazole (Protonix) 40 mg DAILY ORAL 10/20/16 09:00 11/16/16 08:59 10/20/16 08:34 Phenytoin (Dilantin) 200 mg Q12HR ORAL 10/19/16 21:00 11/16/16 10:59 10/20/16 08:36 Polyethylene Glycol (Miralax) 17 gm BEDTIME ORAL 10/19/16 21:00 11/16/16 20:59 Polyethylene Glycol (Miralax) 17 gm DAILYPRN PRN ORAL Constipation 10/19/16 17:15 11/15/16 17:14 Sennosides (Senokot) 8.6 mg DAILY ORAL 10/20/16 09:00 11/17/16 08:59 Sodium Chloride 1,000 ml @ 500 mls/hr Q2H PRN IVLG sbp<90 during hd 10/20/16 06:00 10/20/16 21:00 Temazepam (Restoril) 15 mg HSPRN PRN ORAL Insomnia 10/19/16 20:00 10/23/16 19:59 Vancomycin HCl (Vanco rx to dose) 1 ea DAILY PRN MISC Per rx protocol 10/19/16 17:15 11/18/16 17:14 BETHEL PACK Oct 20, 2016 14:39
[2016-10-20] MEDS ORDERED: NS 275ml ONE (18:35)
[2016-10-20] MEDS: cefTRIAXone 1 GM in D5W 55 ML IVPB SCH (20:14)
[2016-10-20] MEDS ORDERED: Epogen (for ESRD on dialysis) SUBQ SCH (21:00)
[2016-10-20] MEDS: Miralax 17gm pkt ORAL SCH (21:00)
[2016-10-20] MEDS: Epogen (for ESRD on dialysis) SUBQ SCH (21:04)
[2016-10-21] MEDS: DiphenhydrAMINE 50mg/ml Inj IVP PRN ×4 (03:15→21:37)
[2016-10-21 04:00] VITALS: BP 133/93
[2016-10-21 08:00] VITALS: BP 161/100
[2016-10-21] MEDS: Dyna-Hex 2% Top Sol 8oz TOPIC SCH (09:00)
[2016-10-21] MEDS: Lisinopril 20mg tab ORAL SCH (09:00)
[2016-10-21] MEDS: Lactulose 20gm/30ml UDC ORAL SCH ×3 (09:00→18:00)
[2016-10-21] MEDS: Fleet's Mineral Oil Enema RECTAL SCH (09:00)
--- NOTE | 2016-10-21 09:39 | Nephrology Progress Note ---
Assessment/Plan Plan CP - atypical resolved. Patient had complete cardiac w/u numerous times and recently - negative. Recurrent GI bleed is due to uremic gastritis - currently stable. ESRD - HD done yesterday. stable run. Tolerated 3.5 L UF! Otherwise patient @ baseline. Noted attempts to DC pt to SNF. These attempts ended previously in disasters!!! Patient should be DC'ed only to his Home!!!! To DW Case Manger!!!!!!!! Subjective Subjective No C/o Objective Objective Last 24 Hour Vital Signs Date Time Temp Pulse Resp B/P (MAP) Pulse Ox O2 Delivery O2 Flow Rate FiO2 10/21/16 08:00 97.2 94 18 161/100 Room Air 10/21/16 04:00 98.1 86 20 133/93 100 Room Air 10/20/16 23:52 97.3 91 20 144/96 100 Room Air 10/20/16 20:09 97.8 93 20 115/72 100 Room Air 10/20/16 19:10 92 16 Room Air 10/20/16 18:32 98.0 10/20/16 18:00 103 121/73 10/20/16 16:00 98.0 103 19 121/73 100 Room Air 10/20/16 12:00 97.3 99 20 142/73 100 Room Air Height (Feet): 5 Height (Inches): 5.00 Weight (Pounds): 108 Objective CV RR Lungs CTA Abd SNT. BS + E No CCE. Multiple deformities + muscle atrophy. Lt. [place] contracture. ARNIE SWEET Oct 21, 2016 09:39
[2016-10-21] MEDS: Aspirin Baby 81mg ORAL SCH (11:11)
[2016-10-21] MEDS: Phenytoin 100mg cap ORAL SCH ×2 (11:12→21:12)
[2016-10-21] MEDS: Docusate 100mg cap ORAL SCH ×3 (11:12→18:34)
[2016-10-21 12:00] VITALS: BP 126/79
[2016-10-21 16:07] VITALS: BP 158/104
[2016-10-21] MEDS ORDERED: NS 275ml ONE (16:29)
[2016-10-21] MEDS ORDERED: Tubing IV Blood Pump IV ONE (16:29)
--- NOTE | 2016-10-21 18:59 | Pulmonology Progress Note ---
Assessment/Plan Problems: (1) Hypertensive emergency (2) Chest pain (3) ESRF (end stage renal failure) (4) Pericarditis Assessment/Plan bp is better got dilyzed wants to go to [facility] d/w rn case manager hospice dc home in am Subjective ROS Limited/Unobtainable: No Allergies: Coded Allergies: KETOROLAC (Verified Allergy, Mild, SOB, 06/28/11) METOCLOPRAMIDE (Verified Allergy, Mild, RASH, 06/28/11) NITROGLYCERIN (Verified Allergy, Mild, SEIZURES, 06/28/11) PENICILLINS (Verified Allergy, Mild, SOB, 06/28/11) PHENYTOIN (Verified Allergy, Mild, RASH, 06/28/11) ACETAMINOPHEN (Verified Allergy, Unknown, Shortness of Breath, 08/31/16) swelling throat, difficulty breathing CODEINE (Unverified Allergy, Unknown, 10/16/16) HEPARIN (Verified Allergy, Unknown, Shortness of Breath, 08/28/16) HYDRALAZINE (Verified Allergy, Unknown, 08/28/16) HYDROCODONE (Verified Allergy, Unknown, Shortness of Breath, 08/31/16) swelling throat, difficulty breathing IBUPROFEN (Verified Allergy, Unknown, RASH, 06/28/11) IODINE (Verified Allergy, Unknown, SHOCK, 06/28/11) POLYSTYRENE SULFONATE (Verified Allergy, Unknown, RASH, 06/28/11) PROMETHAZINE (Verified Allergy, Unknown, RASH, 06/28/11) Objective Last 24 Hour Vital Signs Date Time Temp Pulse Resp B/P (MAP) Pulse Ox O2 Delivery O2 Flow Rate FiO2 10/21/16 16:07 97.2 95 21 158/104 97 Room Air 10/21/16 12:00 98.6 95 18 126/79 96 Room Air 10/21/16 11:12 94 161/100 10/21/16 09:00 161/100 10/21/16 08:00 97.2 94 18 161/100 Room Air 10/21/16 07:30 94 18 Room Air 10/21/16 04:00 98.1 86 20 133/93 100 Room Air 10/20/16 23:52 97.3 91 20 144/96 100 Room Air 10/20/16 20:09 97.8 93 20 115/72 100 Room Air 10/20/16 19:10 92 16 Room Air Intake and Output 10/21/16 10/22/16 19:00 07:00 Intake Total 1040 ml Balance 1040 ml Intake Oral 1040 ml General Appearance: WD/WN HEENT: normocephalic Respiratory/Chest: chest wall non-tender, normal breath sounds Cardiovascular: normal peripheral pulses, regular rhythm Genitourinary: normal external genitalia Skin: no rash, no ulcers Neurologic/Psychiatric: creative project manager II-XII grossly normal Current Medications Medications (Trade) Dose Ordered Sig/Anant Route PRN Reason Start Time Stop Time Status Last Admin Dose Admin Aspirin (ASA) 162 mg DAILY ORAL 10/20/16 09:00 11/16/16 08:59 10/21/16 11:11 Ceftriaxone Sodium 1 gm/ Dextrose 55 ml @ 110 mls/hr Q24H IVPB 10/19/16 20:00 10/25/16 19:59 10/20/16 20:14 Chlorhexidine Gluconate (Yessi-Hex 2%) 1 applic DAILY TOPIC 10/20/16 09:00 11/16/16 08:59 10/20/16 08:41 Clonidine HCl (Catapres TTS-2) 1 patch QWEEK TDERMAL 10/24/16 16:00 11/16/16 15:59 Diphenhydramine HCl (Benadryl) 25 mg Q6H PRN IVP Itching 10/19/16 19:00 11/16/16 18:59 10/21/16 15:29 Divalproex Sodium (Depakote) 250 mg Q12HR ORAL 10/19/16 21:00 11/16/16 08:59 10/21/16 11:12 Docusate Sodium (Colace) 100 mg THREE TIMES A DAY ORAL 10/19/16 18:00 11/16/16 17:59 10/21/16 18:34 Epoetin Rajinder (Procrit (for ESRD on dialysis)) 7,000 units SUN-WED-SUN SUBQ 10/20/16 21:00 11/19/16 20:59 10/20/16 21:04 Hydromorphone HCl (Dilaudid) 2 mg Q3H PRN IVP Severe Pain (Pain Scale 7-10) 10/19/16 19:30 10/24/16 19:29 10/21/16 18:34 Labetalol HCl (Normodyne) 200 mg BID ORAL 10/19/16 18:00 11/16/16 08:59 10/21/16 11:12 Lactulose (Cephulac) 30 gm THREE TIMES A DAY ORAL 10/19/16 18:00 11/16/16 17:59 Levetiracetam (Keppra) 1,000 mg Q12HR ORAL 10/19/16 21:00 11/16/16 08:59 10/21/16 11:11 Lisinopril (Prinivil) 40 mg DAILY ORAL 10/20/16 09:00 11/17/16 08:59 Mineral Oil (Fleet's Mineral Oil Enema) 133 ml EVERY OTHER DAY RECTAL 10/21/16 09:00 11/18/16 08:59 Minoxidil (Loniten) 2.5 mg Q4H PRN ORAL sbp > 160 10/19/16 17:15 11/16/16 17:14 Ondansetron HCl (Zofran) 4 mg Q6H PRN IVP Nausea & Vomiting 10/19/16 17:15 11/15/16 17:14 10/19/16 20:33 Pantoprazole (Protonix) 40 mg DAILY ORAL 10/20/16 09:00 11/16/16 08:59 10/21/16 11:11 Phenytoin (Dilantin) 200 mg Q12HR ORAL 10/19/16 21:00 11/16/16 10:59 10/21/16 11:12 Polyethylene Glycol (Miralax) 17 gm BEDTIME ORAL 10/19/16 21:00 11/16/16 20:59 Polyethylene Glycol (Miralax) 17 gm DAILYPRN PRN ORAL Constipation 10/19/16 17:15 11/15/16 17:14 Sennosides (Senokot) 8.6 mg DAILY ORAL 10/20/16 09:00 11/17/16 08:59 Temazepam (Restoril) 15 mg HSPRN PRN ORAL Insomnia 10/19/16 20:00 10/23/16 19:59 Vancomycin HCl (Vanco rx to dose) 1 ea DAILY PRN MISC Per rx protocol 10/19/16 17:15 11/18/16 17:14 BETHEL PACK Oct 21, 2016 18:59
[2016-10-21 20:00] VITALS: BP 145/91
--- NOTE | 2016-10-21 20:00 | Consultation ---
DATE OF CONSULTATION: 10/21/2016 CONSULTING PHYSICIAN: Alec Sandoval M.D. ATTENDING PHYSICIAN: Kaylah Hayward M.D. CHIEF COMPLAINT: Anemia. History Of Present Illness: This is a 30-year-old unfortunate male with history of end-stage renal disease, on hemodialysis, and chronic anemia. The last time he was discharged from [place] was on 09/05/2016, and at that time, his hemoglobin was around 8.5 and in last admission, he had an endoscopy done which was very difficult. The patient was not tolerating the endoscopy really well. The patient had evidence of a lesion in the stomach of which biopsies showed blood clot. Of note on the last admission, his stool OB was negative. The patient had also elevated CEA of 8.5 on last admission, and now readmitted again with complaint of chest pain and according to him, he has been having some GI bleeding. PAST MEDICAL HISTORY: 1. History of end-stage renal disease, on hemodialysis. 2. Chronic anemia. 3. Pancytopenia. 4. History of chronic pericarditis, following at [facility]. 5. History of CVA. 6. History of NM. 7. Seizure disorder. Allergies: Acetaminophen, codeine, heparin, hydralazine, hydrocodone, ibuprofen, iodine, ketorolac, Reglan, nitroglycerin, penicillin, polyester substances. FAMILY HISTORY: Noncontributory. REVIEW OF SYSTEMS: Limited. Social History: The patient denies any tobacco, alcohol, or drug abuse. PHYSICAL EXAMINATION: Vital Signs: Most recent vital signs, temperature 98.1 degrees, pulse 86, respirations 20, and blood pressure 133/93. HEENT: Normocephalic and atraumatic. Sclerae pale. NECK: Supple. No lymphadenopathy. CARDIOVASCULAR: Regular rate and rhythm. Plus S1 and S2. LUNGS: Decreased breath sounds bilaterally based on the supine exam. Abdomen: Soft and nontender. No rebound. No guarding. No peritoneal sign. EXTREMITIES: No cyanosis, no clubbing, no edema. Laboratory Data: White count 3.5, hemoglobin 8, hematocrit 23, and platelets 60,000. Chem-7, sodium 134, potassium 4.3, BUN 48, creatinine 5.7, and glucose 134. ASSESSMENT AND PLAN: 1. Chronic anemia. 2. History of gastric lesion of which biopsies showed blood clot. 3. Hiatal hernia. 4. End-stage renal disease, on hemodialysis. 5. Pancytopenia. 6. Elevated CEA of 8.5. Plan: Anemia workup. We will send the stool for OB again. Meanwhile, the patient to be on PPI daily. The patient also might benefit from an endoscopy and we will plan for Sunday. The patient is still in the hospital and is not discharged. We also recommend the patient to get rush CT with contrast and follow up with to rule out malignancy given elevated CEA of 8.5. If the patient's stool OB comes back positive, given endoscopy is negative, we will consider doing colonoscopy at that time. Alec Sandoval M.D. DR: NORA JOB#: [id number] CC:
--- NOTE | 2016-10-21 20:17 | Infectious Diseases Prog Note ---
Assessment/Plan Assessment/Plan ASSESSMENT: 30 y/o male with: // h/o recurrent/chronic pericarditis on IV vancomycin, rocephin prior to admission - h/o PCW, repeated pericardiocenteses @ [facility] // Negative HIV, hepatitis panel // Pancytopenia, afebrile - heme following // Atypical chest pain - resolved, trop neg x3 // h/o CVA // h/o CAD // ESRD / HD // Chronic LLE DVT // VRE colonized // PCN allergy - tolerating rocephin // Full Code PLAN: - continue IV vancomycin, rocephin d# 5 for now ( was supposed to be on until mid september per outside providers previously ) - monitor CBC, temperatures - monitor BMP - seizure precautions Subjective Allergies: Coded Allergies: KETOROLAC (Verified Allergy, Mild, SOB, 06/28/11) METOCLOPRAMIDE (Verified Allergy, Mild, RASH, 06/28/11) NITROGLYCERIN (Verified Allergy, Mild, SEIZURES, 06/28/11) PENICILLINS (Verified Allergy, Mild, SOB, 06/28/11) PHENYTOIN (Verified Allergy, Mild, RASH, 06/28/11) ACETAMINOPHEN (Verified Allergy, Unknown, Shortness of Breath, 08/31/16) swelling throat, difficulty breathing CODEINE (Unverified Allergy, Unknown, 10/16/16) HEPARIN (Verified Allergy, Unknown, Shortness of Breath, 08/28/16) HYDRALAZINE (Verified Allergy, Unknown, 08/28/16) HYDROCODONE (Verified Allergy, Unknown, Shortness of Breath, 08/31/16) swelling throat, difficulty breathing IBUPROFEN (Verified Allergy, Unknown, RASH, 06/28/11) IODINE (Verified Allergy, Unknown, SHOCK, 06/28/11) POLYSTYRENE SULFONATE (Verified Allergy, Unknown, RASH, 06/28/11) PROMETHAZINE (Verified Allergy, Unknown, RASH, 06/28/11) Subjective remains afebrile denies chest pain Objective Vital Signs Last 24 Hour Vital Signs Date Time Temp Pulse Resp B/P (MAP) Pulse Ox O2 Delivery O2 Flow Rate FiO2 10/21/16 19:43 94 148/102 10/21/16 16:07 97.2 95 21 158/104 97 Room Air 10/21/16 12:00 98.6 95 18 126/79 96 Room Air 10/21/16 11:12 94 161/100 10/21/16 09:00 161/100 10/21/16 08:00 97.2 94 18 161/100 Room Air 10/21/16 07:30 94 18 Room Air 10/21/16 04:00 98.1 86 20 133/93 100 Room Air 10/20/16 23:52 97.3 91 20 144/96 100 Room Air Height (Feet): 5 Height (Inches): 5.00 Weight (Pounds): 108 General Appearance: no acute distress Respiratory/Chest: no respiratory distress Cardiovascular: normal rate, regular rhythm Abdomen: normal bowel sounds, soft, non tender, non distended Current Medications Medications (Trade) Dose Ordered Sig/Anant Route PRN Reason Start Time Stop Time Status Last Admin Dose Admin Aspirin (ASA) 162 mg DAILY ORAL 10/20/16 09:00 11/16/16 08:59 10/21/16 11:11 Ceftriaxone Sodium 1 gm/ Dextrose 55 ml @ 110 mls/hr Q24H IVPB 10/19/16 20:00 10/25/16 19:59 10/20/16 20:14 Chlorhexidine Gluconate (Yessi-Hex 2%) 1 applic DAILY TOPIC 10/20/16 09:00 11/16/16 08:59 10/20/16 08:41 Clonidine HCl (Catapres TTS-2) 1 patch QWEEK TDERMAL 10/24/16 16:00 11/16/16 15:59 Diphenhydramine HCl (Benadryl) 25 mg Q6H PRN IVP Itching 10/19/16 19:00 11/16/16 18:59 10/21/16 15:29 Divalproex Sodium (Depakote) 250 mg Q12HR ORAL 10/19/16 21:00 11/16/16 08:59 10/21/16 11:12 Docusate Sodium (Colace) 100 mg THREE TIMES A DAY ORAL 10/19/16 18:00 11/16/16 17:59 10/21/16 18:34 Epoetin Rajinder (Procrit (for ESRD on dialysis)) 7,000 units MON-WED-SUN SUBQ 10/20/16 21:00 11/19/16 20:59 10/20/16 21:04 Hydromorphone HCl (Dilaudid) 2 mg Q3H PRN IVP Severe Pain (Pain Scale 7-10) 10/19/16 19:30 10/24/16 19:29 10/21/16 18:34 Labetalol HCl (Normodyne) 200 mg BID ORAL 10/19/16 18:00 11/16/16 08:59 10/21/16 19:43 Lactulose (Cephulac) 30 gm THREE TIMES A DAY ORAL 10/19/16 18:00 11/16/16 17:59 Levetiracetam (Keppra) 1,000 mg Q12HR ORAL 10/19/16 21:00 11/16/16 08:59 10/21/16 11:11 Lisinopril (Prinivil) 40 mg DAILY ORAL 10/20/16 09:00 11/17/16 08:59 Mineral Oil (Fleet's Mineral Oil Enema) 133 ml EVERY OTHER DAY RECTAL 10/21/16 09:00 11/18/16 08:59 Minoxidil (Loniten) 2.5 mg Q4H PRN ORAL sbp > 160 10/19/16 17:15 11/16/16 17:14 Ondansetron HCl (Zofran) 4 mg Q6H PRN IVP Nausea & Vomiting 10/19/16 17:15 11/15/16 17:14 10/19/16 20:33 Pantoprazole (Protonix) 40 mg DAILY ORAL 10/20/16 09:00 11/16/16 08:59 10/21/16 11:11 Phenytoin (Dilantin) 200 mg Q12HR ORAL 10/19/16 21:00 11/16/16 10:59 10/21/16 11:12 Polyethylene Glycol (Miralax) 17 gm BEDTIME ORAL 10/19/16 21:00 11/16/16 20:59 Polyethylene Glycol (Miralax) 17 gm DAILYPRN PRN ORAL Constipation 10/19/16 17:15 11/15/16 17:14 Sennosides (Senokot) 8.6 mg DAILY ORAL 10/20/16 09:00 11/17/16 08:59 Temazepam (Restoril) 15 mg HSPRN PRN ORAL Insomnia 10/19/16 20:00 10/23/16 19:59 Vancomycin HCl (Vanco rx to dose) 1 ea DAILY PRN MISC Per rx protocol 10/19/16 17:15 11/18/16 17:14 SONJA ASTORGA Oct 21, 2016 20:17
[2016-10-21] MEDS: cefTRIAXone 1 GM in D5W 55 ML IVPB SCH (21:13)
[2016-10-21] MEDS: Miralax 17gm pkt ORAL SCH ×2 (21:13→21:23)
[2016-10-22] VITALS: BP 140/86
[2016-10-22 04:00] VITALS: BP 140/90
[2016-10-22] MEDS: DiphenhydrAMINE 50mg/ml Inj IVP PRN ×4 (04:07→23:47)
--- NOTE | 2016-10-22 07:07 | Infectious Diseases Prog Note ---
Assessment/Plan Assessment/Plan ASSESSMENT: 30 y/o male with: // h/o recurrent/chronic pericarditis on IV vancomycin, rocephin prior to admission - h/o PCW, repeated pericardiocenteses @ [facility] // Negative HIV, hepatitis panel // Pancytopenia, afebrile // Atypical chest pain - resolved, trop neg x3 // h/o CVA // h/o CAD // ESRD / HD // Chronic LLE DVT // VRE colonized // PCN allergy - tolerating rocephin // Full Code PLAN: - continue IV vancomycin, rocephin d# 6 for now ( duration TBD by outside providers - was supposed to be through mid september previously ) - monitor CBC, temperatures - monitor BMP - seizure precautions Subjective Allergies: Coded Allergies: KETOROLAC (Verified Allergy, Mild, SOB, 06/28/11) METOCLOPRAMIDE (Verified Allergy, Mild, RASH, 06/28/11) NITROGLYCERIN (Verified Allergy, Mild, SEIZURES, 06/28/11) PENICILLINS (Verified Allergy, Mild, SOB, 06/28/11) PHENYTOIN (Verified Allergy, Mild, RASH, 06/28/11) ACETAMINOPHEN (Verified Allergy, Unknown, Shortness of Breath, 08/31/16) swelling throat, difficulty breathing CODEINE (Unverified Allergy, Unknown, 10/16/16) HEPARIN (Verified Allergy, Unknown, Shortness of Breath, 08/28/16) HYDRALAZINE (Verified Allergy, Unknown, 08/28/16) HYDROCODONE (Verified Allergy, Unknown, Shortness of Breath, 08/31/16) swelling throat, difficulty breathing IBUPROFEN (Verified Allergy, Unknown, RASH, 06/28/11) IODINE (Verified Allergy, Unknown, SHOCK, 06/28/11) POLYSTYRENE SULFONATE (Verified Allergy, Unknown, RASH, 06/28/11) PROMETHAZINE (Verified Allergy, Unknown, RASH, 06/28/11) Subjective remains afebrile denies chest pain for possible DC Objective Vital Signs Last 24 Hour Vital Signs Date Time Temp Pulse Resp B/P (MAP) Pulse Ox O2 Delivery O2 Flow Rate FiO2 10/22/16 04:00 97.7 89 20 140/90 100 Room Air 10/22/16 00:00 97.6 89 20 140/86 98 Room Air 10/21/16 20:19 97 18 Room Air 10/21/16 20:00 97.9 87 20 145/91 99 Room Air 10/21/16 19:43 94 148/102 10/21/16 16:07 97.2 95 21 158/104 97 Room Air 10/21/16 12:00 98.6 95 18 126/79 96 Room Air 10/21/16 11:12 94 161/100 10/21/16 09:00 161/100 10/21/16 08:00 97.2 94 18 161/100 Room Air 10/21/16 07:30 94 18 Room Air Height (Feet): 5 Height (Inches): 5.00 Weight (Pounds): 108 General Appearance: no acute distress Respiratory/Chest: no respiratory distress Cardiovascular: normal rate, regular rhythm Abdomen: normal bowel sounds, soft, non tender, non distended Current Medications Medications (Trade) Dose Ordered Sig/Anant Route PRN Reason Start Time Stop Time Status Last Admin Dose Admin Aspirin (ASA) 162 mg DAILY ORAL 10/20/16 09:00 11/16/16 08:59 10/21/16 11:11 Ceftriaxone Sodium 1 gm/ Dextrose 55 ml @ 110 mls/hr Q24H IVPB 10/19/16 20:00 10/25/16 19:59 10/21/16 21:13 Chlorhexidine Gluconate (Yessi-Hex 2%) 1 applic DAILY TOPIC 10/20/16 09:00 11/16/16 08:59 10/20/16 08:41 Clonidine HCl (Catapres TTS-2) 1 patch QWEEK TDERMAL 10/24/16 16:00 11/16/16 15:59 Diphenhydramine HCl (Benadryl) 25 mg Q6H PRN IVP Itching 10/19/16 19:00 11/16/16 18:59 10/22/16 04:07 Divalproex Sodium (Depakote) 250 mg Q12HR ORAL 10/19/16 21:00 11/16/16 08:59 10/21/16 21:11 Docusate Sodium (Colace) 100 mg THREE TIMES A DAY ORAL 10/19/16 18:00 11/16/16 17:59 10/21/16 18:34 Epoetin Rajinder (Procrit (for ESRD on dialysis)) 7,000 units SUN-SUN-SUN SUBQ 10/20/16 21:00 11/19/16 20:59 10/20/16 21:04 Hydromorphone HCl (Dilaudid) 2 mg Q3H PRN IVP Severe Pain (Pain Scale 7-10) 10/19/16 19:30 10/24/16 19:29 10/22/16 04:06 Labetalol HCl (Normodyne) 200 mg BID ORAL 10/19/16 18:00 11/16/16 08:59 10/21/16 19:43 Lactulose (Cephulac) 30 gm THREE TIMES A DAY ORAL 10/19/16 18:00 11/16/16 17:59 Levetiracetam (Keppra) 1,000 mg Q12HR ORAL 10/19/16 21:00 11/16/16 08:59 10/21/16 21:11 Lisinopril (Prinivil) 40 mg DAILY ORAL 10/20/16 09:00 11/17/16 08:59 Mineral Oil (Fleet's Mineral Oil Enema) 133 ml EVERY OTHER DAY RECTAL 10/21/16 09:00 11/18/16 08:59 Minoxidil (Loniten) 2.5 mg Q4H PRN ORAL sbp > 160 10/19/16 17:15 11/16/16 17:14 Ondansetron HCl (Zofran) 4 mg Q6H PRN IVP Nausea & Vomiting 10/19/16 17:15 11/15/16 17:14 10/19/16 20:33 Pantoprazole (Protonix) 40 mg DAILY ORAL 10/20/16 09:00 11/16/16 08:59 10/21/16 11:11 Phenytoin (Dilantin) 200 mg Q12HR ORAL 10/19/16 21:00 11/16/16 10:59 10/21/16 21:12 Polyethylene Glycol (Miralax) 17 gm BEDTIME ORAL 10/19/16 21:00 11/16/16 20:59 10/21/16 21:13 Polyethylene Glycol (Miralax) 17 gm DAILYPRN PRN ORAL Constipation 10/19/16 17:15 11/15/16 17:14 Sennosides (Senokot) 8.6 mg DAILY ORAL 10/20/16 09:00 11/17/16 08:59 Temazepam (Restoril) 15 mg HSPRN PRN ORAL Insomnia 10/19/16 20:00 10/23/16 19:59 Vancomycin HCl (Vanco rx to dose) 1 ea DAILY PRN MISC Per rx protocol 10/19/16 17:15 11/18/16 17:14 SONJA ASTORGA Oct 22, 2016 07:07
[2016-10-22 08:09] LABS: MEAN CORPUSCULAR HEMOGLOBIN 29.7 PG (27.0-31.0); MEAN CORPUSCULAR HGB CONC 31.8 G/DL (32.0-36.0); MEAN CORPUSCULAR VOLUME 93 FL (80-99); PLATELET COUNT 97 K/UL (150-450); RED BLOOD COUNT 3.17 M/UL (4.70-6.10); RED CELL DISTRIBUTION WIDTH 16.5 % (11.6-14.8); WHITE BLOOD COUNT 3.8 K/UL (4.8-10.8)
[2016-10-22 08:15] VITALS: BP 162/100
[2016-10-22] MEDS: Lisinopril 20mg tab ORAL SCH (09:00)
[2016-10-22] MEDS: Lactulose 20gm/30ml UDC ORAL SCH ×3 (09:00→18:00)
[2016-10-22] MEDS: Aspirin Baby 81mg ORAL SCH (09:00)
[2016-10-22 09:08] LABS: ALANINE AMINOTRANSFERASE 5 U/L (3-41); ALBUMIN/GLOBULIN RATIO 1.2 (1.0-2.7); ANION GAP 16 (5-15); ASPARTATE AMINO TRANSFERASE 12 U/L (5-40); CALCIUM 8.9 mg/dL (8.6-10.2); CARBON DIOXIDE 27 mEQ/L (20-30); CHLORIDE 93 mEQ/L (98-107); CREATININE 5.9 mg/dL (0.7-1.2); GLOMERULAR FILTRATION RATE 13.7 mL/min (>60); HEMOLYSIS 2; POTASSIUM 4.4 mEQ/L (3.4-4.9); SODIUM 136 mEQ/L (135-145); TOTAL PROTEIN 5.8 g/dL (6.6-8.7)
--- NOTE | 2016-10-22 09:17 | General Progress Note ---
Assessment/Plan Problem List: (1) Anemia ICD Codes: D64.9 - Anemia, unspecified SNOMED: 264393123 (2) Elevated CEA ICD Codes: R97.0 - Elevated carcinoembryonic antigen [CEA] SNOMED: 42452422, 167015472 (3) ESRF (end stage renal failure) ICD Codes: N18.6 - End stage renal disease SNOMED: 11787512 Assessment/Plan stable H&H given last EGD findingd will plan for repeat EGD tomorrow CT of abd tomorrow before HD Subjective ROS Limited/Unobtainable: Yes Allergies: Coded Allergies: KETOROLAC (Verified Allergy, Mild, SOB, 06/28/11) METOCLOPRAMIDE (Verified Allergy, Mild, RASH, 06/28/11) NITROGLYCERIN (Verified Allergy, Mild, SEIZURES, 06/28/11) PENICILLINS (Verified Allergy, Mild, SOB, 06/28/11) PHENYTOIN (Verified Allergy, Mild, RASH, 06/28/11) ACETAMINOPHEN (Verified Allergy, Unknown, Shortness of Breath, 08/31/16) swelling throat, difficulty breathing CODEINE (Unverified Allergy, Unknown, 10/16/16) HEPARIN (Verified Allergy, Unknown, Shortness of Breath, 08/28/16) HYDRALAZINE (Verified Allergy, Unknown, 08/28/16) HYDROCODONE (Verified Allergy, Unknown, Shortness of Breath, 08/31/16) swelling throat, difficulty breathing IBUPROFEN (Verified Allergy, Unknown, RASH, 06/28/11) IODINE (Verified Allergy, Unknown, SHOCK, 06/28/11) POLYSTYRENE SULFONATE (Verified Allergy, Unknown, RASH, 06/28/11) PROMETHAZINE (Verified Allergy, Unknown, RASH, 06/28/11) Subjective no event over night Objective Last 24 Hour Vital Signs Date Time Temp Pulse Resp B/P (MAP) Pulse Ox O2 Delivery O2 Flow Rate FiO2 10/22/16 08:15 97.9 95 20 162/100 97 Room Air 10/22/16 07:52 99 16 Room Air 10/22/16 04:00 97.7 89 20 140/90 100 Room Air 10/22/16 00:00 97.6 89 20 140/86 98 Room Air 10/21/16 20:19 97 18 Room Air 10/21/16 20:00 97.9 87 20 145/91 99 Room Air 10/21/16 19:43 94 148/102 10/21/16 16:07 97.2 95 21 158/104 97 Room Air 10/21/16 12:00 98.6 95 18 126/79 96 Room Air 10/21/16 11:12 94 161/100 Laboratory Tests 10/22/16 07:20: White Blood Count 3.8L, Red Blood Count 3.17L, Hemoglobin 9.4L, Hematocrit 29.6L , Mean Corpuscular Volume 93, Mean Corpuscular Hemoglobin 29.7, Mean Corpuscular Hemoglobin Concent 31.8L, Red Cell Distribution Width 16.5H, Platelet Count 97L, Mean Platelet Volume 7.0, Neutrophils (%) (Auto) , Lymphocytes (%) (Auto) , Monocytes (%) (Auto) , Eosinophils (%) (Auto) , Basophils (%) (Auto) , Neutrophils % (Manual) [Pending], Lymphocytes % (Manual) [Pending], Platelet Estimate [Pending], Platelet Morphology [Pending], Sodium Level [Pending], Potassium Level [Pending], Chloride Level [Pending], Carbon Dioxide Level [Pending], Blood Urea Nitrogen [Pending], Creatinine [Pending], Estimat Glomerular Filtration Rate [Pending], Glucose Level [Pending], Calcium Level [Pending], Iron Level [Pending], Unsaturated Iron Binding [Pending], Total Bilirubin [Pending], Aspartate Amino Transf (AST/SGOT) [Pending], Alanine Aminotransferase (ALT/SGPT) [Pending], Alkaline Phosphatase [Pending], Total Protein [Pending], Albumin [Pending], Globulin [Pending], Carcinoembryonic Antigen [Pending], CA 19-9 Antigen [Pending], Folate [Pending], Random Vancomycin Level [Pending] Height (Feet): 5 Height (Inches): 5.00 Weight (Pounds): 108 General Appearance: alert EENT: normal ENT inspection Neck: supple Cardiovascular: normal rate Respiratory/Chest: lungs clear Abdomen: normal bowel sounds, non tender, soft Extremities: non-tender JEN VALDEZ Oct 22, 2016 09:17
[2016-10-22 09:22] LABS: BASOPHILS % (MANUAL) 1 % (0-2); EOSINOPHILS % (MANUAL) 3 % (0-3); LYMPHOCYTES % (MANUAL) 15 % (20-45); NEUTROPHILS % (MANUAL) 73 % (45-75); TOTAL CELLS COUNTED 100
[2016-10-22 09:23] LABS: ACANTHOCYTES 1+; ANISOCYTOSIS 2+; BAND NEUTROPHILS % (MANUAL) 0 % (0-8); HYPOCHROMASIA 1+; MACROCYTES 1+; MICROCYTES 1+; PLATELET ESTIMATE DECREASED; PLATELET MORPHOLOGY NORMAL; SCHISTOCYTES 1+
[2016-10-22 09:24] LABS: TEAR DROP CELLS 1+
[2016-10-22 09:51] LABS: IRON 103 ug/dL (59-158); TOTAL IRON BINDING CAPACITY 164 ug/dL (250-400)
[2016-10-22] MEDS ORDERED: NS 275ml ONE (10:08)
--- NOTE | 2016-10-22 11:33 | Nephrology Progress Note ---
Assessment/Plan Plan CP - atypical resolved. Patient had complete cardiac w/u numerous times and recently - negative. Recurrent GI bleed is due to uremic gastritis - currently stable. ESRD - HD tomorrow Otherwise patient @ baseline. Noted attempts to DC pt to SNF. These attempts ended previously in disasters!!! Patient should be DC'ed only to his Home!!!! DW CM To Dw pt's Mother Subjective Subjective No C/o Objective Objective Last 24 Hour Vital Signs Date Time Temp Pulse Resp B/P (MAP) Pulse Ox O2 Delivery O2 Flow Rate FiO2 10/22/16 08:15 97.9 95 20 162/100 97 Room Air 10/22/16 07:52 99 16 Room Air 10/22/16 04:00 97.7 89 20 140/90 100 Room Air 10/22/16 00:00 97.6 89 20 140/86 98 Room Air 10/21/16 20:19 97 18 Room Air 10/21/16 20:00 97.9 87 20 145/91 99 Room Air 10/21/16 19:43 94 148/102 10/21/16 16:07 97.2 95 21 158/104 97 Room Air 10/21/16 12:00 98.6 95 18 126/79 96 Room Air Laboratory Tests 10/22/16 07:20: White Blood Count 3.8L, Red Blood Count 3.17L, Hemoglobin 9.4L, Hematocrit 29.6L , Mean Corpuscular Volume 93, Mean Corpuscular Hemoglobin 29.7, Mean Corpuscular Hemoglobin Concent 31.8L, Red Cell Distribution Width 16.5H, Platelet Count 97L, Mean Platelet Volume 7.0, Neutrophils (%) (Auto) , Lymphocytes (%) (Auto) , Monocytes (%) (Auto) , Eosinophils (%) (Auto) , Basophils (%) (Auto) , Differential Total Cells Counted 100, Neutrophils % ( Manual) 73, Lymphocytes % (Manual) 15L, Monocytes % (Manual) 8, Eosinophils % ( Manual) 3, Basophils % (Manual) 1, Band Neutrophils 0, Platelet Estimate DecreasedL, Platelet Morphology Normal, Hypochromasia 1+, Anisocytosis 2+, Microcytosis 1+, Macrocytosis 1+, Tear Drop Cells 1+, Acanthocytes 1+, Schistocytes 1+, Sodium Level 136, Potassium Level 4.4, Chloride Level 93L, Carbon Dioxide Level 27, Anion Gap 16H, Blood Urea Nitrogen 49H, Creatinine 5.9H , Estimat Glomerular Filtration Rate 13.7, Glucose Level 135H, Calcium Level 8.9 , Iron Level 103, Total Iron Binding Capacity 164L, Percent Iron Saturation 63H , Unsaturated Iron Binding 61L, Total Bilirubin < 0.2, Aspartate Amino Transf ( AST/SGOT) 12, Alanine Aminotransferase (ALT/SGPT) 5, Alkaline Phosphatase 3682H , Total Protein 5.8L, Albumin 3.2L, Globulin 2.6, Albumin/Globulin Ratio 1.2, Carcinoembryonic Antigen 9.4H, CA 19-9 Antigen 0.600, Folate [Pending], Random Vancomycin Level 22.1 Height (Feet): 5 Height (Inches): 5.00 Weight (Pounds): 108 Objective CV RR Lungs CTA Abd SNT. BS + E No CCE. Multiple deformities + muscle atrophy. Lt. Carpopedal contracture. ARNIE SWEET Oct 22, 2016 11:33
[2016-10-22 12:00] VITALS: BP 158/96
[2016-10-22] MEDS: Phenytoin 100mg cap ORAL SCH ×2 (12:34→19:53)
[2016-10-22] MEDS: Dyna-Hex 2% Top Sol 8oz TOPIC SCH (12:34)
[2016-10-22] MEDS: Docusate 100mg cap ORAL SCH ×3 (12:35→18:22)
[2016-10-22 15:45] VITALS: BP 161/93
--- NOTE | 2016-10-22 16:09 | Pulmonology Progress Note ---
Assessment/Plan Problems: (1) Hypertensive emergency (2) Chest pain (3) ESRF (end stage renal failure) (4) Pericarditis Assessment/Plan bp is better got dilyzed wants to go to longterm d/w case therapist for EGD in am Subjective ROS Limited/Unobtainable: No Allergies: Coded Allergies: KETOROLAC (Verified Allergy, Mild, SOB, 06/28/11) METOCLOPRAMIDE (Verified Allergy, Mild, RASH, 06/28/11) NITROGLYCERIN (Verified Allergy, Mild, SEIZURES, 06/28/11) PENICILLINS (Verified Allergy, Mild, SOB, 06/28/11) PHENYTOIN (Verified Allergy, Mild, RASH, 06/28/11) ACETAMINOPHEN (Verified Allergy, Unknown, Shortness of Breath, 08/31/16) swelling throat, difficulty breathing CODEINE (Unverified Allergy, Unknown, 10/16/16) HEPARIN (Verified Allergy, Unknown, Shortness of Breath, 08/28/16) HYDRALAZINE (Verified Allergy, Unknown, 08/28/16) HYDROCODONE (Verified Allergy, Unknown, Shortness of Breath, 08/31/16) swelling throat, difficulty breathing IBUPROFEN (Verified Allergy, Unknown, RASH, 06/28/11) IODINE (Verified Allergy, Unknown, SHOCK, 06/28/11) POLYSTYRENE SULFONATE (Verified Allergy, Unknown, RASH, 06/28/11) PROMETHAZINE (Verified Allergy, Unknown, RASH, 06/28/11) Objective Last 24 Hour Vital Signs Date Time Temp Pulse Resp B/P (MAP) Pulse Ox O2 Delivery O2 Flow Rate FiO2 10/22/16 15:45 97.7 90 19 161/93 100 Room Air 10/22/16 12:35 93 158/102 10/22/16 12:00 97.7 99 19 158/96 99 Room Air 10/22/16 08:15 97.9 95 20 162/100 97 Room Air 10/22/16 07:52 99 16 Room Air 10/22/16 04:00 97.7 89 20 140/90 100 Room Air 10/22/16 00:00 97.6 89 20 140/86 98 Room Air 10/21/16 20:19 97 18 Room Air 10/21/16 20:00 97.9 87 20 145/91 99 Room Air 10/21/16 19:43 94 148/102 Objective for EGD in am General Appearance: WD/WN HEENT: normocephalic, anicteric Respiratory/Chest: chest wall non-tender, lungs clear Cardiovascular: normal peripheral pulses, normal rate Abdomen: normal bowel sounds, soft, non tender Extremities: no clubbing Skin: no ulcers 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 normal, oriented x 3 Lymphatic: no neck adenopathy Laboratory Tests 10/22/16 07:20: White Blood Count 3.8L, Red Blood Count 3.17L, Hemoglobin 9.4L, Hematocrit 29.6L , Mean Corpuscular Volume 93, Mean Corpuscular Hemoglobin 29.7, Mean Corpuscular Hemoglobin Concent 31.8L, Red Cell Distribution Width 16.5H, Platelet Count 97L, Mean Platelet Volume 7.0, Neutrophils (%) (Auto) , Lymphocytes (%) (Auto) , Monocytes (%) (Auto) , Eosinophils (%) (Auto) , Basophils (%) (Auto) , Differential Total Cells Counted 100, Neutrophils % ( Manual) 73, Lymphocytes % (Manual) 15L, Monocytes % (Manual) 8, Eosinophils % ( Manual) 3, Basophils % (Manual) 1, Band Neutrophils 0, Platelet Estimate DecreasedL, Platelet Morphology Normal, Hypochromasia 1+, Anisocytosis 2+, Microcytosis 1+, Macrocytosis 1+, Tear Drop Cells 1+, Acanthocytes 1+, Schistocytes 1+, Sodium Level 136, Potassium Level 4.4, Chloride Level 93L, Carbon Dioxide Level 27, Anion Gap 16H, Blood Urea Nitrogen 49H, Creatinine 5.9H , Estimat Glomerular Filtration Rate 13.7, Glucose Level 135H, Calcium Level 8.9 , Iron Level 103, Total Iron Binding Capacity 164L, Percent Iron Saturation 63H , Unsaturated Iron Binding 61L, Total Bilirubin < 0.2, Aspartate Amino Transf ( AST/SGOT) 12, Alanine Aminotransferase (ALT/SGPT) 5, Alkaline Phosphatase 3682H , Total Protein 5.8L, Albumin 3.2L, Globulin 2.6, Albumin/Globulin Ratio 1.2, Carcinoembryonic Antigen 9.4H, CA 19-9 Antigen 0.600, Folate [Pending], Random Vancomycin Level 22.1 Current Medications Medications (Trade) Dose Ordered Sig/Anant Route PRN Reason Start Time Stop Time Status Last Admin Dose Admin Aspirin (ASA) 162 mg DAILY ORAL 10/20/16 09:00 11/16/16 08:59 10/21/16 11:11 Ceftriaxone Sodium 1 gm/ Dextrose 55 ml @ 110 mls/hr Q24H IVPB 10/19/16 20:00 10/25/16 19:59 10/21/16 21:13 Chlorhexidine Gluconate (Yessi-Hex 2%) 1 applic DAILY TOPIC 10/20/16 09:00 11/16/16 08:59 10/22/16 12:34 Clonidine HCl (Catapres TTS-2) 1 patch QWEEK TDERMAL 10/24/16 16:00 11/16/16 15:59 Diphenhydramine HCl (Benadryl) 25 mg Q6H PRN IVP Itching 10/19/16 19:00 11/16/16 18:59 10/22/16 11:13 Divalproex Sodium (Depakote) 250 mg Q12HR ORAL 10/19/16 21:00 11/16/16 08:59 10/22/16 12:34 Docusate Sodium (Colace) 100 mg THREE TIMES A DAY ORAL 10/19/16 18:00 11/16/16 17:59 10/22/16 12:35 Epoetin Rajinder (Procrit (for ESRD on dialysis)) 7,000 units SUN-SUN-SUN SUBQ 10/20/16 21:00 11/19/16 20:59 10/20/16 21:04 Heparin Sodium (Porcine) (Heparin Sod 1000 units/ml 10ml) 2,000 unit ONCE PRN IV DIALYSIS 10/23/16 06:00 10/23/16 21:00 Hydromorphone HCl (Dilaudid) 2 mg Q3H PRN IVP Severe Pain (Pain Scale 7-10) 10/19/16 19:30 10/24/16 19:29 10/22/16 14:13 Labetalol HCl (Normodyne) 200 mg BID ORAL 10/19/16 18:00 11/16/16 08:59 10/22/16 12:35 Lactulose (Cephulac) 30 gm THREE TIMES A DAY ORAL 10/19/16 18:00 11/16/16 17:59 Levetiracetam (Keppra) 1,000 mg Q12HR ORAL 10/19/16 21:00 11/16/16 08:59 10/22/16 12:43 Lisinopril (Prinivil) 40 mg DAILY ORAL 10/20/16 09:00 11/17/16 08:59 Mineral Oil (Fleet's Mineral Oil Enema) 133 ml EVERY OTHER DAY RECTAL 10/21/16 09:00 11/18/16 08:59 Minoxidil (Loniten) 2.5 mg Q4H PRN ORAL sbp > 160 10/19/16 17:15 11/16/16 17:14 Ondansetron HCl (Zofran) 4 mg Q6H PRN IVP Nausea & Vomiting 10/19/16 17:15 11/15/16 17:14 10/19/16 20:33 Pantoprazole (Protonix) 40 mg DAILY ORAL 10/20/16 09:00 11/16/16 08:59 10/22/16 12:43 Phenytoin (Dilantin) 200 mg Q12HR ORAL 10/19/16 21:00 11/16/16 10:59 10/22/16 12:34 Polyethylene Glycol (Miralax) 17 gm BEDTIME ORAL 10/19/16 21:00 11/16/16 20:59 10/21/16 21:13 Polyethylene Glycol (Miralax) 17 gm DAILYPRN PRN ORAL Constipation 10/19/16 17:15 11/15/16 17:14 Sennosides (Senokot) 8.6 mg DAILY ORAL 10/20/16 09:00 11/17/16 08:59 Sodium Chloride 1,000 ml @ 500 mls/hr Q2H PRN IVLG sbp<90 during hd 10/23/16 06:00 10/23/16 21:00 Temazepam (Restoril) 15 mg HSPRN PRN ORAL Insomnia 10/19/16 20:00 10/23/16 19:59 Vancomycin HCl (Vanco rx to dose) 1 ea DAILY PRN MISC Per rx protocol 10/19/16 17:15 11/18/16 17:14 Vancomycin HCl 500 mg/Dextrose 110 ml @ 110 mls/hr ONCE ONCE IVPB 10/23/16 08:00 10/23/16 08:59 BETHEL PACK Oct 22, 2016 16:09
[2016-10-22] MEDS: cefTRIAXone 1 GM in D5W 55 ML IVPB SCH (19:52)
[2016-10-22 20:00] VITALS: BP 158/95
--- NOTE | 2016-10-22 23:16 | Diagnostic Imaging Report ---
APPROVED REPORT CPT Code: 42459 Present Symptoms Comments: Weakness BILATERAL: Imaging reveals a patent deep venous system bilaterally. There is no evidence of thrombus within the femoral, popliteal or tibial segments. The greater saphenous veins are also within normal limits. Doppler indicates normal spontaneous flow within these segments.
[2016-10-23] VITALS (9 sets, daily range): BP systolic 156–176; BP diastolic 92–121
[2016-10-23] MEDS ORDERED: Heparin Sod 1000 units/ml 10ml IV PRN (06:00)
[2016-10-23 07:38] LABS: BASOPHILS % (AUTO) 0.9 % (0.0-2.0); EOSINOPHILS % (AUTO) 3.8 % (0.0-3.0); LYMPHOCYTES % (AUTO) 18.3 % (20.0-45.0); MEAN CORPUSCULAR HEMOGLOBIN 30.3 PG (27.0-31.0); MEAN CORPUSCULAR HGB CONC 32.6 G/DL (32.0-36.0); MEAN CORPUSCULAR VOLUME 93 FL (80-99); MEAN PLATELET VOLUME 8.3 FL (6.5-10.1); MONOCYTES % (AUTO) 6.8 % (1.0-10.0); NEUTROPHILS % (AUTO) 70.1 % (45.0-75.0); PLATELET COUNT 105 K/UL (150-450); RED BLOOD COUNT 3.04 M/UL (4.70-6.10); RED CELL DISTRIBUTION WIDTH 16.3 % (11.6-14.8); WHITE BLOOD COUNT 3.9 K/UL (4.8-10.8)
[2016-10-23] MEDS ORDERED: Vancomycin 500mg/D5W 110ml IVPB ONE ×2 (08:00)
--- NOTE | 2016-10-23 08:22 | Nephrology Progress Note ---
Assessment/Plan Plan CP - atypical resolved. Patient had complete cardiac w/u numerous times and recently - negative. Recurrent GI bleed is due to uremic gastritis - currently stable. ESRD - HD today. EGD today Otherwise patient @ baseline. Noted attempts to DC pt to SNF. These attempts ended previously in disasters!!! Patient should be DC'ed only to his Home!!!! DW CM DW pt's Mother. She's in agreement that he has to go home. Subjective Subjective No C/o Objective Objective Last 24 Hour Vital Signs Date Time Temp Pulse Resp B/P (MAP) Pulse Ox O2 Delivery O2 Flow Rate FiO2 10/23/16 07:29 93 18 Room Air 10/23/16 04:00 97.7 90 20 156/92 98 Room Air 10/23/16 00:00 97.9 93 20 171/98 98 Room Air 10/22/16 20:00 97.7 90 20 158/95 100 Room Air 10/22/16 19:51 96 18 Room Air 10/22/16 18:23 90 161/93 10/22/16 15:45 97.7 90 19 161/93 100 Room Air 10/22/16 12:35 93 158/102 10/22/16 12:00 97.7 99 19 158/96 99 Room Air Laboratory Tests 10/23/16 04:40: White Blood Count 3.9L, Red Blood Count 3.04L, Hemoglobin 9.2L, Hematocrit 28.2L , Mean Corpuscular Volume 93, Mean Corpuscular Hemoglobin 30.3, Mean Corpuscular Hemoglobin Concent 32.6, Red Cell Distribution Width 16.3H, Platelet Count 105L, Mean Platelet Volume 8.3, Neutrophils (%) (Auto) 70.1, Lymphocytes (%) (Auto) 18.3L, Monocytes (%) (Auto) 6.8, Eosinophils (%) (Auto) 3.8H, Basophils (%) (Auto) 0.9, Sodium Level [Pending], Potassium Level [Pending ], Chloride Level [Pending], Carbon Dioxide Level [Pending], Blood Urea Nitrogen [Pending], Creatinine [Pending], Estimat Glomerular Filtration Rate [ Pending], Glucose Level [Pending], Calcium Level [Pending] Height (Feet): 5 Height (Inches): 5.00 Weight (Pounds): 108 Objective CV RR Lungs CTA Abd SNT. BS + E No CCE. Multiple deformities + muscle atrophy. Lt. Carpopedal contracture. ARNIE SWEET Oct 23, 2016 08:22
[2016-10-23 08:31] LABS: CALCIUM 8.9 mg/dL (8.6-10.2); CREATININE 7.3 mg/dL (0.7-1.2); GLOMERULAR FILTRATION RATE 10.7 mL/min (>60); POTASSIUM 4.8 mEQ/L (3.4-4.9)
[2016-10-23] MEDS: Fleet's Mineral Oil Enema RECTAL SCH (09:00)
[2016-10-23] MEDS: Lactulose 20gm/30ml UDC ORAL SCH ×3 (09:00→18:00)
[2016-10-23] MEDS: Docusate 100mg cap ORAL SCH ×3 (09:00→18:20)
[2016-10-23] MEDS: Aspirin Baby 81mg ORAL SCH (09:00)
[2016-10-23] MEDS: Lisinopril 20mg tab ORAL SCH (09:00)
[2016-10-23] MEDS: DiphenhydrAMINE 50mg/ml Inj IVP PRN ×2 (10:17→18:29)
--- NOTE | 2016-10-23 10:42 | Pre-Procedure Note/Attestation ---
Pre-Procedure Note/Attestation Complete Prior to Procedure Planned Procedure: not applicable Procedure Narrative: egd Indications for Procedure Pre-Operative Diagnosis: anemia Attestation I attest that I discussed the nature of the procedure; its benefits; risks and complications; and alternatives (and the risks and benefits of such alternatives ), prior to the procedure, with the patient (or the patient's legal customer assistance representative). I attest that, if there was a reasonable possibility of needing a blood transfusion, the patient (or the patient's legal customer assistance representative) was given the [facility] standardized written summary, pursuant to the [place] Blood Safety Act ([place] Health and Safety Code # 1645, as amended). I attest that I re-evaluated the patient just prior to the surgery and that there has been no change in the patient's H&P, except as documented below: JEN VALDEZ Oct 23, 2016 10:42
[2016-10-23] MEDS ORDERED: NS 550ML IV ONE (10:45)
[2016-10-23] MEDS ORDERED: DiphenhydrAMINE 50mg/ml Inj ONE (11:00)
[2016-10-23] MEDS ORDERED: Propofol 200mg/20ml IV ONE (11:00)
[2016-10-23] MEDS ORDERED: Lidocaine 1% MPF 10mg/ml 5ml ONE (11:00)
--- NOTE | 2016-10-23 11:03 | Endoscopy Procedure Note ---
Endoscopy Procedure Note Indication for Procedure: anemia Procedures Performed: EGD Operative Findings/Diagnosis: gastritis Specimen: yes Pt Tolerated Procedure Well: Yes Estimated Blood Loss: none Anesthesiologist: karlie Anesthesia: MAC Implant(s) used?: No 50 yrs or older w/o bx or poly: Not Applicable 10yrs. F/U not recommended: Not Applicable JEN VALDEZ Oct 23, 2016 11:03
--- NOTE | 2016-10-23 11:51 | Infectious Diseases Prog Note ---
Assessment/Plan Assessment/Plan A: The patient is a 30-year-old male with history of chronic pericarditis, etiology and the exact kind of management for this is not totally clear History of hypertension. Asthma. history of end-stage renal disease, on hemodialysis. PLAN: will continue the patient on IV Vancomycin and Rocephin d# 7 for now , upon DC pt may resume plan of AB rx followed by home health Monitor CBC Monitor BMP. will try to contact out side MDas to get more information re plan of AB Rx, ( pt still trying to get the primary MD who is managing Ab Rx ) Subjective Constitutional: Denies: no symptoms, fever, chills, fatigue, anorexia, drenching sweats, other Allergies: Coded Allergies: KETOROLAC (Verified Allergy, Mild, SOB, 06/28/11) METOCLOPRAMIDE (Verified Allergy, Mild, RASH, 06/28/11) NITROGLYCERIN (Verified Allergy, Mild, SEIZURES, 06/28/11) PENICILLINS (Verified Allergy, Mild, SOB, 06/28/11) PHENYTOIN (Verified Allergy, Mild, RASH, 06/28/11) ACETAMINOPHEN (Verified Allergy, Unknown, Shortness of Breath, 08/31/16) swelling throat, difficulty breathing CODEINE (Unverified Allergy, Unknown, 10/16/16) HEPARIN (Verified Allergy, Unknown, Shortness of Breath, 08/28/16) HYDRALAZINE (Verified Allergy, Unknown, 08/28/16) HYDROCODONE (Verified Allergy, Unknown, Shortness of Breath, 08/31/16) swelling throat, difficulty breathing IBUPROFEN (Verified Allergy, Unknown, RASH, 06/28/11) IODINE (Verified Allergy, Unknown, SHOCK, 06/28/11) POLYSTYRENE SULFONATE (Verified Allergy, Unknown, RASH, 06/28/11) PROMETHAZINE (Verified Allergy, Unknown, RASH, 06/28/11) Objective Vital Signs Last 24 Hour Vital Signs Date Time Temp Pulse Resp B/P (MAP) Pulse Ox O2 Delivery O2 Flow Rate FiO2 10/23/16 11:25 95 18 161/96 100 Room Air 10/23/16 11:20 97 18 159/98 100 Simple Mask 5.0 10/23/16 11:15 98.6 97 18 158/102 100 Simple Mask 5.0 10/23/16 09:04 96 158/100 10/23/16 09:00 158/100 10/23/16 08:00 97.5 100 20 171/121 100 Room Air 10/23/16 07:29 93 18 Room Air 10/23/16 04:00 97.7 90 20 156/92 98 Room Air 10/23/16 00:00 97.9 93 20 171/98 98 Room Air 10/22/16 20:00 97.7 90 20 158/95 100 Room Air 10/22/16 19:51 96 18 Room Air 10/22/16 18:23 90 161/93 10/22/16 15:45 97.7 90 19 161/93 100 Room Air 10/22/16 12:35 93 158/102 10/22/16 12:00 97.7 99 19 158/96 99 Room Air Height (Feet): 5 Height (Inches): 5.00 Weight (Pounds): 108 HEENT: mucous membranes moist Respiratory/Chest: normal breath sounds Cardiovascular: regularly irregular Abdomen: no organomegaly Laboratory Tests Test 10/23/16 04:40 White Blood Count 3.9 K/UL (4.8-10.8) L Red Blood Count 3.04 M/UL (4.70-6.10) L Hemoglobin 9.2 G/DL (14.2-18.0) L Hematocrit 28.2 % (42.0-52.0) L Mean Corpuscular Volume 93 FL (80-99) Mean Corpuscular Hemoglobin 30.3 PG (27.0-31.0) Mean Corpuscular Hemoglobin Concent 32.6 G/DL (32.0-36.0) Red Cell Distribution Width 16.3 % (11.6-14.8) H Platelet Count 105 K/UL (150-450) L Mean Platelet Volume 8.3 FL (6.5-10.1) Neutrophils (%) (Auto) 70.1 % (45.0-75.0) Lymphocytes (%) (Auto) 18.3 % (20.0-45.0) L Monocytes (%) (Auto) 6.8 % (1.0-10.0) Eosinophils (%) (Auto) 3.8 % (0.0-3.0) H Basophils (%) (Auto) 0.9 % (0.0-2.0) Sodium Level 134 mEQ/L (135-145) L Potassium Level 4.8 mEQ/L (3.4-4.9) Chloride Level 91 mEQ/L (98-107) L Carbon Dioxide Level 23 mEQ/L (20-30) Anion Gap 20 (5-15) H Blood Urea Nitrogen 62 mg/dL (7-23) H Creatinine 7.3 mg/dL (0.7-1.2) H Estimat Glomerular Filtration Rate 10.7 mL/min (>60) Glucose Level 77 mg/dL (74-106) Calcium Level 8.9 mg/dL (8.6-10.2) Current Medications Medications (Trade) Dose Ordered Sig/Anant Route PRN Reason Start Time Stop Time Status Last Admin Dose Admin Aspirin (ASA) 162 mg DAILY ORAL 10/20/16 09:00 11/16/16 08:59 10/21/16 11:11 Ceftriaxone Sodium 1 gm/ Dextrose 55 ml @ 110 mls/hr Q24H IVPB 10/19/16 20:00 10/25/16 19:59 10/22/16 19:52 Chlorhexidine Gluconate (Yessi-Hex 2%) 1 applic DAILY TOPIC 10/20/16 09:00 11/16/16 08:59 10/22/16 12:34 Clonidine HCl (Catapres TTS-2) 1 patch QWEEK TDERMAL 10/24/16 16:00 11/16/16 15:59 Diphenhydramine HCl (Benadryl) 25 mg Q6H PRN IVP Itching 10/19/16 19:00 11/16/16 18:59 10/23/16 10:17 Divalproex Sodium (Depakote) 250 mg Q12HR ORAL 10/19/16 21:00 11/16/16 08:59 10/22/16 19:53 Docusate Sodium (Colace) 100 mg THREE TIMES A DAY ORAL 10/19/16 18:00 11/16/16 17:59 10/22/16 18:22 Epoetin Rajinder (Procrit (for ESRD on dialysis)) 7,000 units MON-WED-SUN SUBQ 10/20/16 21:00 11/19/16 20:59 10/20/16 21:04 Heparin Sodium (Porcine) (Heparin Sod 1000 units/ml 10ml) 2,000 unit ONCE PRN IV DIALYSIS 10/23/16 06:00 10/23/16 21:00 Hydromorphone HCl (Dilaudid) 2 mg Q3H PRN IVP Severe Pain (Pain Scale 7-10) 10/19/16 19:30 10/24/16 19:29 10/23/16 08:25 Labetalol HCl (Normodyne) 200 mg Q12HR ORAL 10/23/16 21:00 11/18/16 17:59 Lactulose (Cephulac) 30 gm THREE TIMES A DAY ORAL 10/19/16 18:00 11/16/16 17:59 Levetiracetam (Keppra) 1,000 mg Q12HR ORAL 10/19/16 21:00 11/16/16 08:59 10/22/16 19:52 Lisinopril (Prinivil) 40 mg DAILY ORAL 10/20/16 09:00 11/17/16 08:59 Mineral Oil (Fleet's Mineral Oil Enema) 133 ml EVERY OTHER DAY RECTAL 10/21/16 09:00 11/18/16 08:59 Minoxidil (Loniten) 2.5 mg Q4H PRN ORAL sbp > 160 10/19/16 17:15 11/16/16 17:14 Ondansetron HCl (Zofran) 4 mg Q6H PRN IVP Nausea & Vomiting 10/19/16 17:15 11/15/16 17:14 10/19/16 20:33 Pantoprazole (Protonix) 40 mg ACBREAKFAST ORAL 10/24/16 06:30 11/19/16 08:59 Phenytoin (Dilantin) 200 mg Q12HR ORAL 10/19/16 21:00 11/16/16 10:59 10/22/16 19:53 Polyethylene Glycol (Miralax) 17 gm BEDTIME ORAL 10/19/16 21:00 11/16/16 20:59 10/21/16 21:13 Polyethylene Glycol (Miralax) 17 gm DAILYPRN PRN ORAL Constipation 10/19/16 17:15 11/15/16 17:14 Sennosides (Senokot) 8.6 mg DAILY ORAL 10/20/16 09:00 11/17/16 08:59 Sodium Chloride 1,000 ml @ 500 mls/hr Q2H PRN IVLG sbp<90 during hd 10/23/16 06:00 10/23/16 21:00 Temazepam (Restoril) 15 mg HSPRN PRN ORAL Insomnia 10/19/16 20:00 10/23/16 19:59 Vancomycin HCl (Vanco rx to dose) 1 ea DAILY PRN MISC Per rx protocol 10/19/16 17:15 11/18/16 17:14 FAITH WOOD M.D. Oct 23, 2016 11:51
--- NOTE | 2016-10-23 12:22 | Anethesia Preoperative Eval ---
Anesthesia Pre-op PMH/ROS General Date of Evaluation: Oct 23, 2016 Time of Evaluation: 10:47 Anesthesiologist: kianna ASA Score: ASA 4 Mallampati Score Class I : Soft palate, uvula, fauces, pillars visible Class II: Soft palate, uvula, fauces visible Class III: Soft palate, base of uvula visible Class IV: Only hard plate visible Mallampati Classification: Class II Surgeon: jass Diagnosis: anemia, gastritis Surgical Procedure: egd Anesthesia History: none Social History: smoking - nonsmoker Family History: no anesthesia problems Allergies: Coded Allergies: KETOROLAC (Verified Allergy, Mild, SOB, 06/28/11) METOCLOPRAMIDE (Verified Allergy, Mild, RASH, 06/28/11) NITROGLYCERIN (Verified Allergy, Mild, SEIZURES, 06/28/11) PENICILLINS (Verified Allergy, Mild, SOB, 06/28/11) PHENYTOIN (Verified Allergy, Mild, RASH, 06/28/11) ACETAMINOPHEN (Verified Allergy, Unknown, Shortness of Breath, 08/31/16) swelling throat, difficulty breathing CODEINE (Unverified Allergy, Unknown, 10/16/16) HEPARIN (Verified Allergy, Unknown, Shortness of Breath, 08/28/16) HYDRALAZINE (Verified Allergy, Unknown, 08/28/16) HYDROCODONE (Verified Allergy, Unknown, Shortness of Breath, 08/31/16) swelling throat, difficulty breathing IBUPROFEN (Verified Allergy, Unknown, RASH, 06/28/11) IODINE (Verified Allergy, Unknown, SHOCK, 06/28/11) POLYSTYRENE SULFONATE (Verified Allergy, Unknown, RASH, 06/28/11) PROMETHAZINE (Verified Allergy, Unknown, RASH, 06/28/11) Medications: see eMAR Past Medical History Cardiovascular: Reports: RI, arrhythmia Pulmonary: Reports: asthma Gastrointestinal/Genitourinary: Reports: ESRD Neurologic/Psychiatric: Reports: CVA, other - seizure Hematology/Immune: Reports: anemia Musculoskeletal/Integumentary: Reports: other - contractures Anesthesia Pre-op Phys. Exam Physician Exam Last Vital Signs Date Time Temp Pulse Resp B/P (MAP) Pulse Ox O2 Delivery O2 Flow Rate FiO2 10/23/16 11:25 95 18 161/96 100 Room Air 10/23/16 11:20 5.0 10/23/16 11:15 98.6 9/13/17 07:23 21 Constitutional: NAD Neurologic: other - contractures Cardiovascular: RRR Respiratory: CTA Gastrointestinal: S/NT/ND Airway Exam Mallampati Score: Class II MO: full Neck: supple TMD: 2fb ROM: limited Teeth: missing Anesthesia Pre-op A/P Labs Hematology Test 10/23/16 04:40 White Blood Count 3.9 K/UL (4.8-10.8) L Red Blood Count 3.04 M/UL (4.70-6.10) L Hemoglobin 9.2 G/DL (14.2-18.0) L Hematocrit 28.2 % (42.0-52.0) L Mean Corpuscular Volume 93 FL (80-99) Mean Corpuscular Hemoglobin 30.3 PG (27.0-31.0) Mean Corpuscular Hemoglobin Concent 32.6 G/DL (32.0-36.0) Red Cell Distribution Width 16.3 % (11.6-14.8) H Platelet Count 105 K/UL (150-450) L Mean Platelet Volume 8.3 FL (6.5-10.1) Neutrophils (%) (Auto) 70.1 % (45.0-75.0) Lymphocytes (%) (Auto) 18.3 % (20.0-45.0) L Monocytes (%) (Auto) 6.8 % (1.0-10.0) Eosinophils (%) (Auto) 3.8 % (0.0-3.0) H Basophils (%) (Auto) 0.9 % (0.0-2.0) Chemistry Test 10/23/16 04:40 Sodium Level 134 mEQ/L (135-145) L Potassium Level 4.8 mEQ/L (3.4-4.9) Chloride Level 91 mEQ/L (98-107) L Carbon Dioxide Level 23 mEQ/L (20-30) Anion Gap 20 (5-15) H Blood Urea Nitrogen 62 mg/dL (7-23) H Creatinine 7.3 mg/dL (0.7-1.2) H Estimat Glomerular Filtration Rate 10.7 mL/min (>60) Glucose Level 77 mg/dL (74-106) Calcium Level 8.9 mg/dL (8.6-10.2) Risk Assessment & Plan Assessment: [email or web address] Plan: mac Status Change Before Surgery: No Pre-Antibiotics Drug: FEDERICO Fenton Oct 23, 2016 12:22
--- NOTE | 2016-10-23 12:24 | Immediate Post-Op Evaluation ---
Immediate Post-Op Evalulation Immediate Post-Op Evalulation Procedure: egd Date of Evaluation: Oct 23, 2016 Time of Evaluation: 11:32 IV Fluids: 0.9ns 150ml Blood Products: none Estimated Blood Loss: negligible Blood Pressure Systolic: 158 Blood Pressure Diastolic: 62 Pulse Rate: 96 Respiratory Rate: 18 O2 Sat by Pulse Oximetry: 100 Temperature (Fahrenheit): 98.6 Pain Score (1-10): 0 Nausea: No Vomiting: No Complications none Patient Status: awake, reacts, patent Hydration Status: adequate Drug: FEDERICO Fenton Oct 23, 2016 12:24
--- NOTE | 2016-10-23 12:25 | 48 Hour Post Anesthesia Eval ---
Post Anesthesia Evaluation Procedure: egd Date of Evaluation: Oct 23, 2016 Time of Evaluation: 12:24 Blood Pressure Systolic: 150 0: 78 Pulse Rate: 88 Respiratory Rate: 18 Temperature (Fahrenheit): 98.6 O2 Sat by Pulse Oximetry: 100 Airway: patent Nausea: No Vomiting: No Pain Intensity: 0 Hydration Status: adequate Cardiopulmonary Status: stable Mental Status/LOC: patient returned to baseline Post-Anesthesia Complications: none Follow-up care needed: N/A FEDERICO ALEX Oct 23, 2016 12:25
[2016-10-23] MEDS ORDERED: DiphenhydrAMINE 50mg/ml Inj IVP PRN (12:30)
[2016-10-23] MEDS ORDERED: Midazolam 2mg/2ml Inj IVP PRN (12:30)
[2016-10-23] MEDS ORDERED: Hydromorphone 0.5mg/0.5ml inj IVP PRN (12:30)
[2016-10-23] MEDS ORDERED: Atropine Inj 1mg/10ml Syr IV PRN (12:30)
--- NOTE | 2016-10-23 15:33 | Pulmonology Progress Note ---
Assessment/Plan Problems: (1) Hypertensive emergency (2) Chest pain (3) ESRF (end stage renal failure) (4) Pericarditis Assessment/Plan bp is better got dilyzed wants to go to prison d/w manager of case for EGD done for dc home in am Subjective ROS Limited/Unobtainable: No Constitutional: Reports: no symptoms HEENT: Repors: no symptoms Allergies: Coded Allergies: KETOROLAC (Verified Allergy, Mild, SOB, 06/28/11) METOCLOPRAMIDE (Verified Allergy, Mild, RASH, 06/28/11) NITROGLYCERIN (Verified Allergy, Mild, SEIZURES, 06/28/11) PENICILLINS (Verified Allergy, Mild, SOB, 06/28/11) PHENYTOIN (Verified Allergy, Mild, RASH, 06/28/11) ACETAMINOPHEN (Verified Allergy, Unknown, Shortness of Breath, 08/31/16) swelling throat, difficulty breathing CODEINE (Unverified Allergy, Unknown, 10/16/16) HEPARIN (Verified Allergy, Unknown, Shortness of Breath, 08/28/16) HYDRALAZINE (Verified Allergy, Unknown, 08/28/16) HYDROCODONE (Verified Allergy, Unknown, Shortness of Breath, 08/31/16) swelling throat, difficulty breathing IBUPROFEN (Verified Allergy, Unknown, RASH, 06/28/11) IODINE (Verified Allergy, Unknown, SHOCK, 06/28/11) POLYSTYRENE SULFONATE (Verified Allergy, Unknown, RASH, 06/28/11) PROMETHAZINE (Verified Allergy, Unknown, RASH, 06/28/11) Objective Last 24 Hour Vital Signs Date Time Temp Pulse Resp B/P (MAP) Pulse Ox O2 Delivery O2 Flow Rate FiO2 10/23/16 12:25 88 18 100 10/23/16 12:24 96 18 100 10/23/16 12:00 97.9 98 20 164/109 100 Room Air 10/23/16 11:25 95 18 161/96 100 Room Air 10/23/16 11:20 97 18 159/98 100 Simple Mask 5.0 10/23/16 11:15 98.6 97 18 158/102 100 Simple Mask 5.0 10/23/16 09:04 96 158/100 10/23/16 09:00 158/100 10/23/16 08:00 97.5 100 20 171/121 100 Room Air 10/23/16 07:29 93 18 Room Air 10/23/16 04:00 97.7 90 20 156/92 98 Room Air 10/23/16 00:00 97.9 93 20 171/98 98 Room Air 10/22/16 20:00 97.7 90 20 158/95 100 Room Air 10/22/16 19:51 96 18 Room Air 10/22/16 18:23 90 161/93 10/22/16 15:45 97.7 90 19 161/93 100 Room Air Intake and Output 10/23/16 10/24/16 19:00 07:00 Intake Total 50 ml Balance 50 ml IV Total 50 ml Objective for EGD in am General Appearance: WD/WN HEENT: normocephalic, anicteric, PERRL Respiratory/Chest: chest wall non-tender, lungs clear Cardiovascular: normal peripheral pulses, normal rate Abdomen: normal bowel sounds, soft, non tender Extremities: no cyanosis Skin: no ulcers 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 normal, alert Lymphatic: no neck adenopathy Laboratory Tests 10/23/16 04:40: White Blood Count 3.9L, Red Blood Count 3.04L, Hemoglobin 9.2L, Hematocrit 28.2L , Mean Corpuscular Volume 93, Mean Corpuscular Hemoglobin 30.3, Mean Corpuscular Hemoglobin Concent 32.6, Red Cell Distribution Width 16.3H, Platelet Count 105L, Mean Platelet Volume 8.3, Neutrophils (%) (Auto) 70.1, Lymphocytes (%) (Auto) 18.3L, Monocytes (%) (Auto) 6.8, Eosinophils (%) (Auto) 3.8H, Basophils (%) (Auto) 0.9, Sodium Level 134L, Potassium Level 4.8, Chloride Level 91L, Carbon Dioxide Level 23, Anion Gap 20H, Blood Urea Nitrogen 62H, Creatinine 7.3H, Estimat Glomerular Filtration Rate 10.7, Glucose Level 77 , Calcium Level 8.9 Current Medications Medications (Trade) Dose Ordered Sig/Anant Route PRN Reason Start Time Stop Time Status Last Admin Dose Admin Al Hydroxide/Mg Hydroxide (Mylanta) 15 ml Q1H PRN ORAL gi upset 10/23/16 12:30 10/23/16 17:00 Aspirin (ASA) 162 mg DAILY ORAL 10/20/16 09:00 11/16/16 08:59 10/21/16 11:11 Atropine Sulfate (Atropine) 0.5 mg Q5M PRN IV bpm less than 45 10/23/16 12:30 10/23/16 17:00 Ceftriaxone Sodium 1 gm/ Dextrose 55 ml @ 110 mls/hr Q24H IVPB 10/19/16 20:00 10/25/16 19:59 10/22/16 19:52 Chlorhexidine Gluconate (Yessi-Hex 2%) 1 applic DAILY TOPIC 10/20/16 09:00 11/16/16 08:59 10/22/16 12:34 Clonidine HCl (Catapres TTS-2) 1 patch QWEEK TDERMAL 10/24/16 16:00 11/16/16 15:59 Diphenhydramine HCl (Benadryl) 25 mg Q15M PRN IVP Itching 10/23/16 12:30 10/23/16 17:00 Diphenhydramine HCl (Benadryl) 25 mg Q6H PRN IVP Itching 10/19/16 19:00 11/16/16 18:59 10/23/16 10:17 Divalproex Sodium (Depakote) 250 mg Q12HR ORAL 10/19/16 21:00 11/16/16 08:59 10/22/16 19:53 Docusate Sodium (Colace) 100 mg THREE TIMES A DAY ORAL 10/19/16 18:00 11/16/16 17:59 10/22/16 18:22 Epoetin Rajinder (Procrit (for ESRD on dialysis)) 7,000 units SUN-SUN-SUN SUBQ 10/20/16 21:00 11/19/16 20:59 10/20/16 21:04 Heparin Sodium (Porcine) (Heparin Sod 1000 units/ml 10ml) 2,000 unit ONCE PRN IV DIALYSIS 10/23/16 06:00 10/23/16 21:00 Hydralazine HCl (Apresoline) 5 mg Q30M PRN IV SBP>160 OR___/DBP>90 OR___ 10/23/16 12:30 10/23/16 17:00 Hydromorphone HCl (Dilaudid) 0.5 mg Q15M PRN IVP Severe Pain (Pain Scale 7-10) 10/23/16 12:30 10/23/16 17:00 Hydromorphone HCl (Dilaudid) 2 mg Q3H PRN IVP Severe Pain (Pain Scale 7-10) 10/19/16 19:30 10/24/16 19:29 10/23/16 14:58 Labetalol HCl (Normodyne) 200 mg Q12HR ORAL 10/23/16 21:00 11/18/16 17:59 Lactulose (Cephulac) 30 gm THREE TIMES A DAY ORAL 10/19/16 18:00 11/16/16 17:59 Levetiracetam (Keppra) 1,000 mg Q12HR ORAL 10/19/16 21:00 11/16/16 08:59 10/22/16 19:52 Lisinopril (Prinivil) 40 mg DAILY ORAL 10/20/16 09:00 11/17/16 08:59 Midazolam HCl (Versed 2mg/2ml vial) 1 mg Q15M PRN IVP For Anxiety 10/23/16 12:30 10/23/16 17:00 Mineral Oil (Fleet's Mineral Oil Enema) 133 ml EVERY OTHER DAY RECTAL 10/21/16 09:00 11/18/16 08:59 Minoxidil (Loniten) 2.5 mg Q4H PRN ORAL sbp > 160 10/19/16 17:15 11/16/16 17:14 Ondansetron HCl (Zofran) 4 mg Q1H PRN IVP Nausea & Vomiting 10/23/16 12:30 10/23/16 17:00 Ondansetron HCl (Zofran) 4 mg Q6H PRN IVP Nausea & Vomiting 10/19/16 17:15 11/15/16 17:14 10/19/16 20:33 Pantoprazole (Protonix) 40 mg ACBREAKFAST ORAL 10/24/16 06:30 11/19/16 08:59 Phenytoin (Dilantin) 200 mg Q12HR ORAL 10/19/16 21:00 11/16/16 10:59 10/22/16 19:53 Polyethylene Glycol (Miralax) 17 gm BEDTIME ORAL 10/19/16 21:00 11/16/16 20:59 10/21/16 21:13 Polyethylene Glycol (Miralax) 17 gm DAILYPRN PRN ORAL Constipation 10/19/16 17:15 11/15/16 17:14 Sennosides (Senokot) 8.6 mg DAILY ORAL 10/20/16 09:00 11/17/16 08:59 Sodium Chloride 1,000 ml @ 500 mls/hr Q2H PRN IVLG sbp<90 during hd 10/23/16 06:00 10/23/16 21:00 Temazepam (Restoril) 15 mg HSPRN PRN ORAL Insomnia 10/19/16 20:00 10/23/16 19:59 Vancomycin HCl (Vanco rx to dose) 1 ea DAILY PRN MISC Per rx protocol 10/19/16 17:15 11/18/16 17:14 BETHEL PACK Oct 23, 2016 15:33
--- NOTE | 2016-10-23 15:43 | Diagnostic Imaging Report ---
Indication: Abdominal pain Technique: Spiral acquisitions obtained through the abdomen and pelvis. No oral contrast, per referring physician request. No IV contrast utilized, due to history of contrast allergy.. Multiplanar reconstructions were generated. Total dose length product 474 mGycm. CTDIvol(s) 10 mGy. Dose reduction achieved using automated exposure control Comparison: 06/28/2011 Findings: Lack of enteric contrast, asthenic body habitus and resultant paucity of abdominal fat limits assessment of the GI tract. There is also mild anasarca, mostly edema of the subcutaneous and mesenteric fat, which also decreases inherent soft tissue contrast. There is equivocal wall thickening of the distal sigmoid and rectum. There is a moderate amount of retained colonic stool. The appendix is normal. Small bowel loops are diffusely mildly prominent. There is a small to moderate sliding-type hiatal hernia now present, not evident previously. The stomach is otherwise grossly unremarkable. The duodenum is grossly unremarkable. Lack of IV contrast limits assessment of the solid organs. There is a coarse calcification within the right hepatic lobe. The liver is otherwise grossly unremarkable. The gallbladder, bile ducts, pancreas, are unremarkable. The adrenals appear to be calcified. The these are absent, reportedly postsurgically. No pelvic mass or adenopathy. The bones demonstrates numerous osteolytic lesions. These are distributed throughout the thoracic and lumbar spine, throughout the pelvis, and are also seen in the bilateral hips. These were not evident on the previous exam. There is some associated osseous sclerotic change. There is suggestion of an age-indeterminate left seventh rib fracture. The tip of a dialysis catheter is seen within the right atrium. Lung bases are clear. Previously demonstrated pleural fluid and left basilar opacity no longer evident. Impression: Limited exam, as described, due to asthenic body habitus and anasarca limiting inherent soft tissue contrast, as well as due to lack of oral and IV contrast Anasarca, mild Evidence of mild constipation. Correlate with clinical findings Equivocal wall thickening of the distal sigmoid and rectum. If real, could indicate mild slight is/bronchitis changes Extensive mixed osteolytic and osteoblastic, mostly osteolytic, lesions of the visualized axial skeleton. These are new since these exam of 2011. 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 However, there are pathologies including metastatic disease should also be considered Moderate-sized hiatal hernia Hepatic calcification also previously described, presumably related to prior inflammation Questionable age-indeterminate left seventh rib fracture Surgically absent kidneys. Suggestion of bilateral adrenal calcifications, nonspecific as regards etiology Other findings as noted, including dialysis catheter The CT scanner at is accredited by the [employer] and the scans are performed using protocols designed to limit radiation exposure to as low as reasonably achievable to attain images of sufficient resolution adequate for diagnostic evaluation.
[2016-10-23] MEDS: Phenytoin 100mg cap ORAL SCH (15:54)
[2016-10-23] MEDS: Dyna-Hex 2% Top Sol 8oz TOPIC SCH (18:19)
[2016-10-23] MEDS: Miralax 17gm pkt ORAL SCH (21:00)
[2016-10-23] MEDS: cefTRIAXone 1 GM in D5W 55 ML IVPB SCH (21:06)
[2016-10-23] MEDS: Epogen (for ESRD on dialysis) SUBQ SCH (21:07)
--- NOTE | 2016-10-23 22:45 | Operative Note - Dictated ---
DATE OF OPERATION: 10/23/2016 SURGEON: Alec Sandoval M.D. PROCEDURE: Upper endoscopy with biopsy. ANESTHESIOLOGIST: Lisa Cartwright M.D. INSTRUMENT: Olympus adult flexible upper endoscope. Indication: Prior history of upper gastrointestinal bleeding, positive for gastric ulcer, anemia, and elevated CEA. Description of Procedure: After informed consent was obtained and the patient was adequately sedated, Olympus upper endoscope was advanced from mouth into the second portion of the duodenum and retroflexion was performed in stomach. The patient had evidence of a very large hiatal hernia. Minimum distal esophagitis. Diffuse gastritis which was biopsied. This patient had some bile reflux and retained bile in the stomach, most probably from the large hiatal hernia. We had hard time getting the scope in the duodenum. There was a sharp bend in the peripyloric area finally to get it through. There was no evidence of any duodenitis. Random biopsy from antrum and a prominent fold in the antrum was obtained. SUMMARY OF FINDINGS: 1. Large hiatal hernia. 2. Minimum distal esophagitis. 3. Bile reflux. 4. Diffuse gastritis. 5. Prominent fold in the antrum, status post biopsy. 6. Sharp bend in the peripyloric region before going to the duodenum making getting into the duodenum difficult. RECOMMENDATIONS: 1. Follow up biopsy results and treat accordingly. 2. The patient is going for CT of the abdomen and pelvis for evaluation of elevated CEA. 3. The patient might need colonoscopy, we will follow. I want to thank, Dr. Gaines, for this kind referral. Alec Sandoval M.D. DR: BERTA JOB#: [id number] CC: Kaylah Hayward M.D.; Fax#: [phone] Gaines M.D. ; Fax#: [phone]
[2016-10-24] VITALS: BP 159/86
[2016-10-24] MEDS: Phenytoin 100mg cap ORAL SCH ×2 (00:01→10:30)
[2016-10-24] MEDS: DiphenhydrAMINE 50mg/ml Inj IVP PRN ×3 (01:04→15:14)
[2016-10-24 04:09] VITALS: BP 153/83
[2016-10-24 08:00] VITALS: BP 148/86
[2016-10-24] MEDS: Lactulose 20gm/30ml UDC ORAL SCH ×3 (09:00→18:00)
[2016-10-24] MEDS: Lisinopril 20mg tab ORAL SCH (09:00)
[2016-10-24] MEDS: Dyna-Hex 2% Top Sol 8oz TOPIC SCH (10:29)
[2016-10-24] MEDS: Docusate 100mg cap ORAL SCH ×3 (10:30→18:00)
[2016-10-24] MEDS: Aspirin Baby 81mg ORAL SCH (10:30)
--- NOTE | 2016-10-24 10:40 | Nephrology Progress Note ---
Assessment/Plan Plan CP - atypical resolved. Recurrent GI bleed is due to uremic gastritis - currently stable.s/p EGD. ESRD tomorrow. Otherwise patient @ baseline. Noted attempts to DC pt to SNF. These attempts ended previously in disasters!!! Patient should be DC'ed only to his Home!!!! ISABELL GRAYSON DW pt's Mother. She's in agreement that he has to go home. Patient "appealing Medicare". Cannot appeal. Has only HMO as primary insure. Explained numerous times to CM. Subjective Subjective No C/o Objective Objective Last 24 Hour Vital Signs Date Time Temp Pulse Resp B/P (MAP) Pulse Ox O2 Delivery O2 Flow Rate FiO2 10/24/16 10:32 90 148/86 10/24/16 08:00 97.5 90 20 148/86 100 Room Air 10/24/16 04:09 98.1 96 20 153/83 98 Room Air 10/24/16 00:50 Room Air 10/24/16 00:00 98.2 88 20 159/86 100 Room Air 10/23/16 23:14 Room Air 10/23/16 21:07 91 163/98 10/23/16 20:00 98.6 91 19 163/98 100 Room Air 10/23/16 19:05 95 18 Room Air 10/23/16 16:00 98.4 96 20 176/95 98 Room Air 10/23/16 12:25 88 18 100 10/23/16 12:24 96 18 100 10/23/16 12:00 97.9 98 20 164/109 100 Room Air 10/23/16 11:25 95 18 161/96 100 Room Air 10/23/16 11:20 97 18 159/98 100 Simple Mask 5.0 10/23/16 11:15 98.6 97 18 158/102 100 Simple Mask 5.0 Height (Feet): 5 Height (Inches): 5.00 Weight (Pounds): 108 Objective CV RR Lungs CTA Abd SNT. BS + E No CCE. Multiple deformities + muscle atrophy. Lt. [place] contracture. ARNIE SWEET Oct 24, 2016 10:40
[2016-10-24 12:00] VITALS: BP 136/100
--- NOTE | 2016-10-24 13:06 | GI Progress Note ---
Assessment/Plan Problems: (1) Severe malnutrition ICD Codes: E43 - Unspecified severe protein-calorie malnutrition SNOMED: 03766792 (2) Elevated CEA ICD Codes: R97.0 - Elevated carcinoembryonic antigen [CEA] SNOMED: 19947154, 916500388 (3) Anemia ICD Codes: D64.9 - Anemia, unspecified SNOMED: 206602135 (4) Alkaline phosphatase elevation ICD Codes: R74.8 - Abnormal levels of other serum enzymes SNOMED: 962618492 Status: stable, unchanged Status Narrative Discussed with Dr. Sandoval. Assessment/Plan CP AP noncon reviewed >> constipation, HH - Equivocal wall thickening of the distal sigmoid and rectum. Extensive mixed osteolytic and osteoblastic, mostly osteolytic, lesions of the visualized axial skeleton. These are new since these exam of 2011. 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 However, there are pathologies including metastatic disease should also be considered. CEA elevation SUMMARY OF FINDINGS: 1. Large hiatal hernia. 2. Minimum distal esophagitis. 3. Bile reflux. 4. Diffuse gastritis. 5. Prominent fold in the antrum, status post biopsy. 6. Sharp bend in the peripyloric region before going to the duodenum making getting into the duodenum difficult. RECOMMENDATIONS: outpatient colonoscopy ppi monitor H&H, prn transfusions fu labs Subjective Gastrointestinal/Abdominal: Reports: abdominal pain Objective Last 24 Hour Vital Signs Date Time Temp Pulse Resp B/P (MAP) Pulse Ox O2 Delivery O2 Flow Rate FiO2 10/24/16 12:00 97.3 89 20 136/100 98 Room Air 10/24/16 10:32 90 148/86 10/24/16 09:00 148/86 10/24/16 08:00 97.5 90 20 148/86 100 Room Air 10/24/16 04:09 98.1 96 20 153/83 98 Room Air 10/24/16 00:50 Room Air 10/24/16 00:00 98.2 88 20 159/86 100 Room Air 10/23/16 23:14 Room Air 10/23/16 21:07 91 163/98 10/23/16 20:00 98.6 91 19 163/98 100 Room Air 10/23/16 19:05 95 18 Room Air 10/23/16 16:00 98.4 96 20 176/95 98 Room Air Height (Feet): 5 Height (Inches): 5.00 Weight (Pounds): 108 General Appearance: no apparent distress, alert, thin Cardiovascular: normal rate Respiratory/Chest: normal breath sounds, no respiratory distress Abdominal Exam: soft Ashleigh Marie N.P. Oct 24, 2016 13:06
[2016-10-24 15:54] VITALS: BP 133/76
[2016-10-24] MEDS ORDERED: Bisacodyl EC 5mg tab ORAL ONE (16:00)
[2016-10-24] MEDS ORDERED: Nulytely 4L ORAL ONE (16:00)
--- NOTE | 2016-10-24 16:30 | Pulmonology Progress Note ---
Assessment/Plan Problems: (1) Hypertensive emergency (2) Chest pain (3) ESRF (end stage renal failure) (4) Pericarditis Assessment/Plan bp is better got dilyzed wants to go to senior living d/w mental health case manager for dc home today Subjective ROS Limited/Unobtainable: No Constitutional: Reports: no symptoms HEENT: Repors: no symptoms Respiratory: Reports: no symptoms Allergies: Coded Allergies: KETOROLAC (Verified Allergy, Mild, SOB, 06/28/11) METOCLOPRAMIDE (Verified Allergy, Mild, RASH, 06/28/11) NITROGLYCERIN (Verified Allergy, Mild, SEIZURES, 06/28/11) PENICILLINS (Verified Allergy, Mild, SOB, 06/28/11) PHENYTOIN (Verified Allergy, Mild, RASH, 06/28/11) ACETAMINOPHEN (Verified Allergy, Unknown, Shortness of Breath, 08/31/16) swelling throat, difficulty breathing CODEINE (Unverified Allergy, Unknown, 10/16/16) HEPARIN (Verified Allergy, Unknown, Shortness of Breath, 08/28/16) HYDRALAZINE (Verified Allergy, Unknown, 08/28/16) HYDROCODONE (Verified Allergy, Unknown, Shortness of Breath, 08/31/16) swelling throat, difficulty breathing IBUPROFEN (Verified Allergy, Unknown, RASH, 06/28/11) IODINE (Verified Allergy, Unknown, SHOCK, 06/28/11) POLYSTYRENE SULFONATE (Verified Allergy, Unknown, RASH, 06/28/11) PROMETHAZINE (Verified Allergy, Unknown, RASH, 06/28/11) Objective Last 24 Hour Vital Signs Date Time Temp Pulse Resp B/P (MAP) Pulse Ox O2 Delivery O2 Flow Rate FiO2 10/24/16 15:54 97.8 93 21 133/76 100 Room Air 10/24/16 12:00 97.3 89 20 136/100 98 Room Air 10/24/16 10:32 90 148/86 10/24/16 09:00 148/86 10/24/16 08:00 97.5 90 20 148/86 100 Room Air 10/24/16 04:09 98.1 96 20 153/83 98 Room Air 10/24/16 00:50 Room Air 10/24/16 00:00 98.2 88 20 159/86 100 Room Air 10/23/16 23:14 Room Air 10/23/16 21:07 91 163/98 10/23/16 20:00 98.6 91 19 163/98 100 Room Air 10/23/16 19:05 95 18 Room Air General Appearance: WD/WN HEENT: normocephalic Respiratory/Chest: chest wall non-tender, lungs clear Cardiovascular: normal peripheral pulses, regular rhythm Abdomen: normal bowel sounds, soft, non tender Extremities: no cyanosis, no clubbing Skin: no lesions Current Medications Medications (Trade) Dose Ordered Sig/Anant Route PRN Reason Start Time Stop Time Status Last Admin Dose Admin Aspirin (ASA) 162 mg DAILY ORAL 10/20/16 09:00 11/16/16 08:59 10/24/16 10:30 Ceftriaxone Sodium 1 gm/ Dextrose 55 ml @ 110 mls/hr Q24H IVPB 10/19/16 20:00 10/25/16 19:59 10/23/16 21:06 Chlorhexidine Gluconate (Yessi-Hex 2%) 1 applic DAILY TOPIC 10/20/16 09:00 11/16/16 08:59 10/24/16 10:29 Clonidine HCl (Catapres TTS-2) 1 patch QWEEK TDERMAL 10/24/16 16:00 11/16/16 15:59 Diphenhydramine HCl (Benadryl) 25 mg Q6H PRN IVP Itching 10/19/16 19:00 11/16/16 18:59 10/24/16 15:14 Divalproex Sodium (Depakote) 250 mg Q12HR ORAL 10/23/16 23:00 11/22/16 22:59 10/24/16 10:31 Docusate Sodium (Colace) 100 mg THREE TIMES A DAY ORAL 10/19/16 18:00 11/16/16 17:59 10/24/16 10:30 Epoetin Rajinder (Procrit (for ESRD on dialysis)) 7,000 units SUN-SUN-SUN SUBQ 10/20/16 21:00 11/19/16 20:59 10/23/16 21:07 Heparin Sodium (Porcine) (Heparin Sod 1000 units/ml 10ml) 2,000 unit ONCE IV 10/25/16 06:00 10/25/16 18:00 Hydromorphone HCl (Dilaudid) 2 mg Q3H PRN IVP Severe Pain (Pain Scale 7-10) 10/19/16 19:30 10/24/16 19:29 10/24/16 15:14 Labetalol HCl (Normodyne) 200 mg Q12HR ORAL 10/23/16 21:00 11/18/16 17:59 10/24/16 10:32 Lactulose (Cephulac) 30 gm THREE TIMES A DAY ORAL 10/19/16 18:00 11/16/16 17:59 Levetiracetam (Keppra) 1,000 mg Q12HR ORAL 10/23/16 23:00 11/22/16 22:59 10/24/16 10:29 Lisinopril (Prinivil) 40 mg DAILY ORAL 10/20/16 09:00 11/17/16 08:59 Mineral Oil (Fleet's Mineral Oil Enema) 133 ml EVERY OTHER DAY RECTAL 10/21/16 09:00 11/18/16 08:59 Minoxidil (Loniten) 2.5 mg Q4H PRN ORAL sbp > 160 10/19/16 17:15 11/16/16 17:14 Ondansetron HCl (Zofran) 4 mg Q6H PRN IVP Nausea & Vomiting 10/19/16 17:15 11/15/16 17:14 10/19/16 20:33 Pantoprazole (Protonix) 40 mg ACBREAKFAST ORAL 10/24/16 06:30 11/19/16 08:59 10/24/16 06:56 Phenytoin (Dilantin) 200 mg Q12HR ORAL 10/23/16 23:00 11/22/16 22:59 10/24/16 10:30 Polyethylene Glycol (Miralax) 17 gm BEDTIME ORAL 10/19/16 21:00 11/16/16 20:59 10/21/16 21:13 Polyethylene Glycol (Miralax) 17 gm DAILYPRN PRN ORAL Constipation 10/19/16 17:15 11/15/16 17:14 Sennosides (Senokot) 8.6 mg DAILY ORAL 10/20/16 09:00 11/17/16 08:59 Sodium Chloride 1,000 ml @ 500 mls/hr Q2H PRN IVLG sbp<90 during hd 9/20/17 06:00 11/24/16 18:00 Vancomycin HCl (Vanco rx to dose) 1 ea DAILY PRN MISC Per rx protocol 10/19/16 17:15 11/18/16 17:14 BETHEL PACK Oct 24, 2016 16:30
--- NOTE | 2016-10-24 18:11 | Infectious Diseases Prog Note ---
Assessment/Plan Assessment/Plan A: The patient is a 30-year-old male with history of chronic pericarditis, etiology and the exact kind of management for this is not totally clear History of hypertension. Asthma. history of end-stage renal disease, on hemodialysis. SP EGD : Large hiatal hernia. Minimum distal esophagitis. Diffuse gastritis. PLAN: will continue the patient on IV Vancomycin and Rocephin d# 8 for now , upon DC pt may resume plan of AB rx as per out side ID, by home health Monitor CBC Monitor BMP. pt has not provided contact information of primary MD who is managing Ab Rx in the out pt setting ) Subjective Allergies: Coded Allergies: KETOROLAC (Verified Allergy, Mild, SOB, 06/28/11) METOCLOPRAMIDE (Verified Allergy, Mild, RASH, 06/28/11) NITROGLYCERIN (Verified Allergy, Mild, SEIZURES, 06/28/11) PENICILLINS (Verified Allergy, Mild, SOB, 06/28/11) PHENYTOIN (Verified Allergy, Mild, RASH, 06/28/11) ACETAMINOPHEN (Verified Allergy, Unknown, Shortness of Breath, 08/31/16) swelling throat, difficulty breathing CODEINE (Unverified Allergy, Unknown, 10/16/16) HEPARIN (Verified Allergy, Unknown, Shortness of Breath, 08/28/16) HYDRALAZINE (Verified Allergy, Unknown, 08/28/16) HYDROCODONE (Verified Allergy, Unknown, Shortness of Breath, 08/31/16) swelling throat, difficulty breathing IBUPROFEN (Verified Allergy, Unknown, RASH, 06/28/11) IODINE (Verified Allergy, Unknown, SHOCK, 06/28/11) POLYSTYRENE SULFONATE (Verified Allergy, Unknown, RASH, 06/28/11) PROMETHAZINE (Verified Allergy, Unknown, RASH, 06/28/11) Subjective afebrile Objective Vital Signs Last 24 Hour Vital Signs Date Time Temp Pulse Resp B/P (MAP) Pulse Ox O2 Delivery O2 Flow Rate FiO2 10/24/16 15:54 97.8 93 21 133/76 100 Room Air 10/24/16 12:00 97.3 89 20 136/100 98 Room Air 10/24/16 10:32 90 148/86 10/24/16 09:00 148/86 10/24/16 08:00 97.5 90 20 148/86 100 Room Air 10/24/16 04:09 98.1 96 20 153/83 98 Room Air 10/24/16 00:50 Room Air 10/24/16 00:00 98.2 88 20 159/86 100 Room Air 10/23/16 23:14 Room Air 10/23/16 21:07 91 163/98 10/23/16 20:00 98.6 91 19 163/98 100 Room Air 10/23/16 19:05 95 18 Room Air Height (Feet): 5 Height (Inches): 5.00 Weight (Pounds): 108 HEENT: atraumatic Respiratory/Chest: no respiratory distress Cardiovascular: regularly irregular Abdomen: no organomegaly Current Medications Medications (Trade) Dose Ordered Sig/Anant Route PRN Reason Start Time Stop Time Status Last Admin Dose Admin Aspirin (ASA) 162 mg DAILY ORAL 10/20/16 09:00 11/16/16 08:59 10/24/16 10:30 Ceftriaxone Sodium 1 gm/ Dextrose 55 ml @ 110 mls/hr Q24H IVPB 10/19/16 20:00 10/25/16 19:59 10/23/16 21:06 Chlorhexidine Gluconate (Yessi-Hex 2%) 1 applic DAILY TOPIC 10/20/16 09:00 11/16/16 08:59 10/24/16 10:29 Clonidine HCl (Catapres TTS-2) 1 patch QWEEK TDERMAL 10/24/16 16:00 11/16/16 15:59 Diphenhydramine HCl (Benadryl) 25 mg Q6H PRN IVP Itching 10/19/16 19:00 11/16/16 18:59 10/24/16 15:14 Divalproex Sodium (Depakote) 250 mg Q12HR ORAL 10/23/16 23:00 11/22/16 22:59 10/24/16 10:31 Docusate Sodium (Colace) 100 mg THREE TIMES A DAY ORAL 10/19/16 18:00 11/16/16 17:59 10/24/16 10:30 Epoetin Rajinder (Procrit (for ESRD on dialysis)) 7,000 units SUN-SUN-SUN SUBQ 10/20/16 21:00 11/19/16 20:59 10/23/16 21:07 Heparin Sodium (Porcine) (Heparin Sod 1000 units/ml 10ml) 2,000 unit ONCE IV 10/25/16 06:00 10/25/16 18:00 Hydromorphone HCl (Dilaudid) 2 mg Q3H PRN IVP Severe Pain (Pain Scale 7-10) 10/19/16 19:30 10/24/16 19:29 10/24/16 15:14 Labetalol HCl (Normodyne) 200 mg Q12HR ORAL 10/23/16 21:00 11/18/16 17:59 10/24/16 10:32 Lactulose (Cephulac) 30 gm THREE TIMES A DAY ORAL 10/19/16 18:00 11/16/16 17:59 Levetiracetam (Keppra) 1,000 mg Q12HR ORAL 10/23/16 23:00 11/22/16 22:59 10/24/16 10:29 Lisinopril (Prinivil) 40 mg DAILY ORAL 10/20/16 09:00 11/17/16 08:59 Mineral Oil (Fleet's Mineral Oil Enema) 133 ml EVERY OTHER DAY RECTAL 10/21/16 09:00 11/18/16 08:59 Minoxidil (Loniten) 2.5 mg Q4H PRN ORAL sbp > 160 10/19/16 17:15 11/16/16 17:14 Ondansetron HCl (Zofran) 4 mg Q6H PRN IVP Nausea & Vomiting 10/19/16 17:15 11/15/16 17:14 10/19/16 20:33 Pantoprazole (Protonix) 40 mg ACBREAKFAST ORAL 10/24/16 06:30 11/19/16 08:59 10/24/16 06:56 Phenytoin (Dilantin) 200 mg Q12HR ORAL 10/23/16 23:00 11/22/16 22:59 10/24/16 10:30 Polyethylene Glycol (Miralax) 17 gm BEDTIME ORAL 10/19/16 21:00 11/16/16 20:59 10/21/16 21:13 Polyethylene Glycol (Miralax) 17 gm DAILYPRN PRN ORAL Constipation 10/19/16 17:15 11/15/16 17:14 Sennosides (Senokot) 8.6 mg DAILY ORAL 10/20/16 09:00 10/13/17 08:59 Sodium Chloride 1,000 ml @ 500 mls/hr Q2H PRN IVLG sbp<90 during hd 10/25/16 06:00 11/24/16 18:00 Vancomycin HCl (Vanco rx to dose) 1 ea DAILY PRN MISC Per rx protocol 10/19/16 17:15 11/18/16 17:14 FAITH WOOD M.D. Oct 24, 2016 18:11
[2016-10-24 18:19] VITALS: BP 133/76
[2016-10-25] MEDS ORDERED: Heparin Sod 1000 units/ml 10ml IV SCH (06:00)
--- NOTE | 2016-10-27 08:47 | Discharge Summary 2 SIG ---
DATE OF ADMISSION: 10/16/2016 DATE OF DISCHARGE: 10/24/2016 CONSULTANTS: 1. Jorge L Nina M.D. 2. Alec Sandoval M.D. 3. Nitza Gaines M.D. 4. Jero Oneal M.D. Brief Hospital Course: The patient is a 30-year-old male with history of end-stage renal disease, chronic pericarditis, CVA, MD and seizure disorder. The patient was at dialysis yesterday and developed tachycardia and chest pain with elevated high blood pressure. He was brought in by EMS to ED. He is currently undergoing treatment for chronic pericarditis and has an oncoming surgery at [facility]. On evaluation at ED, initial blood pressure was 185/102. He was given IV antihypertensives; however, it was difficult to control blood pressure. EKG was in sinus rhythm. Chest x-ray showed no acute cardiopulmonary disease. He was then admitted for hypertensive emergency, pericarditis, and chest pain. He underwent cardiac evaluation with Dr. Oneal. Records from [facility] as well as [facility] have been reviewed. The patient was apparently discharged recently from [facility] for complaints of abdominal pain and substernal chest discomfort. Apparently, workup was done and that was negative and he was apparently discharged home. He had a drug-seeking behavior. An echocardiogram was done here showed EF of 70% to 75% and RVSP 42 consistent with mild pulmonary hypertension. There was dynamic LVOT obstruction/cavity obliteration and presence of left ventricular diastolic dysfunction. The right cardiac chamber sizes were within normal limits. An echogenic material was noted on the right atrium possibly dialysis catheter. There was a trivial posterior and small pericardial effusion along the lateral wall of the left ventricle. He was continued on IV Rocephin and vancomycin as what the patient had been on previous prior to admission. Dr. Gaines was consulted for dialysis management. The patient had been complaining of abdominal pain and GI bleed and had prior endoscopies, which showed upper gastric ulcer. Dr. Sandoval was then consulted. The patient had elevated CEA from prior admission. On 10/23/2016, he underwent upper endoscopy with biopsy with findings of a large hiatal hernia, distal esophagitis, diffuse gastritis, and prominent fold in the antrum status post biopsy. There was a sharp bend on the peripyloric region before reaching the duodenum making it difficult getting in to the duodenum. CT of the abdomen and pelvis was done, which showed an equivocal wall thickening on the distal sigmoid and rectum. Blood pressure was treated with clonidine, TTS patch-2, and labetalol. He was also given Epogen for anemia. He was eventually discharged home to follow up with his usual mobile home servicer Dr. Grider. FINAL DIAGNOSES: 1. Hypertensive emergency. 2. End-stage renal failure, on hemodialysis. 3. Pericarditis. 4. Large hiatal hernia. 5. Distal esophagitis. 6. Diffuse gastritis. 7. Severe protein-calorie malnutrition. 8. Recurrent gastrointestinal bleed due to uremic gastritis. DISPOSITION: The patient was discharged home. DISCHARGE MEDICATIONS: Refer to medication list. Followup: Follow up with the mobile home servicer and GI. The patient will eventually need colonoscopy. Continue with scheduled hemodialysis. Kaylah Hayward M.D. I have been assigned to dictate discharge summary on this account and I was not involved in the patient's management. Loli Martinez N.P. DR: AMY JOB#: [id number] CC:
== END 2016-10-24 20:10 | disposition home or self-care (01) | DRG 199 ==
LOC: EDBD 19:37 → EMR 19:50 → 2E 23:14 → EDBEDREQ 10-17 00:56 → 4E 10-19 16:32
PROC: 5A1D60Z (ICD-10-PCS; 2016-10-18)
PROC: 30233N1 Transfusion of Nonautologous Red Blood Cells into Peripheral Vein, Percutaneous Approach (ICD-10-PCS; 2016-10-20)
PROC: 0DB78ZX Excision of Stomach, Pylorus, Via Natural or Artificial Opening Endoscopic, Diagnostic (ICD-10-PCS; 2016-10-23)
PROC: 0DB68ZX Excision of Stomach, Via Natural or Artificial Opening Endoscopic, Diagnostic (ICD-10-PCS; principal; 2016-10-23 10:53)
DX: I16.1 Hypertensive emergency (principal); E43 Unspecified severe protein-calorie malnutrition; N18.6 End stage renal disease; I31.9 Disease of pericardium, unspecified; D69.6 Thrombocytopenia, unspecified; N25.81 Secondary hyperparathyroidism of renal origin; K29.61 Other gastritis with bleeding; F11.20 Opioid dependence, uncomplicated; R07.89 Other chest pain; I25.2 Old myocardial infarction; I12.0 Hypertensive chronic kidney disease with stage 5 chronic kidney disease or end stage renal disease; Z99.2 Dependence on renal dialysis; Z90.5 Acquired absence of kidney; D63.1 Anemia in chronic kidney disease; Z88.6 Allergy status to analgesic agent; Z88.0 Allergy status to penicillin; Z88.8 Allergy status to other drugs, medicaments and biological substances; Z86.73 Personal history of transient ischemic attack (TIA), and cerebral infarction without residual deficits; G40.909 Epilepsy, unspecified, not intractable, without status epilepticus; K21.0 Gastro-esophageal reflux disease with esophagitis; K44.9 Diaphragmatic hernia without obstruction or gangrene; M24.50 Contracture, unspecified joint; R97.0 Elevated carcinoembryonic antigen [CEA]; D64.9 Anemia, unspecified; R26.9 Unspecified abnormalities of gait and mobility; G81.94 Hemiplegia, unspecified affecting left nondominant side; F89 Unspecified disorder of psychological development; M62.89 Other specified disorders of muscle; Z68.1 Body mass index [BMI] 19.9 or less, adult
CPT/HCPCS: 36415; 71010; 74176; 80048; 80053; 80061; 80202; 80299; 82378; 82550; 82553; 82746; 83540; 83550; 84443; 84484; 85007; 85025; 85610; 85730; 86140; 86301; 86850; 86900; 86901; 86920; 87081; 93005; 93306; 93926; 93970; 93971; 94003; 94150; 94664; 99285; J2405

== ENCOUNTER 2016-10-30 18:26 | Inpatient (IN) | payer MEDICAID, MEDICARE ==
[~2016-10-30] VITALS: Ht 177.8 cm; Wt 45.5 kg
[~2016-10-30 18:26] MED LIST changes: +AMLODIPINE BESYL5 MG ORAL; +ASPIR 8181 MG ORAL; +CRANBERRY500 M4 PO; +FERROUS SULFAT325 MG ORAL; +FLOMAX0.4 MG ORAL; +VITAMIN C500 M1 ORAL; +ZINC SULFATE220 M1 ORAL
[2016-10-30 19:41] LABS: MEAN CORPUSCULAR HEMOGLOBIN 30.9 PG (27.0-31.0); MEAN CORPUSCULAR HGB CONC 32.8 G/DL (32.0-36.0); MEAN CORPUSCULAR VOLUME 94 FL (80-99); MEAN PLATELET VOLUME 5.7 FL (6.5-10.1); PLATELET COUNT 112 K/UL (150-450); RED BLOOD COUNT 2.98 M/UL (4.70-6.10); WHITE BLOOD COUNT 3.1 K/UL (4.8-10.8)
[2016-10-30 20:00] LABS: TROPONIN I < 0.30 ng/mL (<=0.30)
[2016-10-30] MEDS ORDERED: HYDROmorphone 1mg/ml Carpuject IVP ONE (20:00)
[2016-10-30 20:11] LABS: CKMB 4.2 ng/mL (< 6.7)
[2016-10-30 20:27] LABS: ALBUMIN/GLOBULIN RATIO 1.2 (1.0-2.7); CALCIUM 8.1 mg/dL (8.6-10.2); CREATININE 2.8 mg/dL (0.7-1.2); GLOMERULAR FILTRATION RATE 32.4 mL/min (>60); TOTAL PROTEIN 5.6 g/dL (6.6-8.7)
[2016-10-30 20:29] LABS: POTASSIUM 2.6 mEQ/L (3.4-4.9)
[2016-10-30 20:44] LABS: BAND NEUTROPHILS % (MANUAL) 1 % (0-8); BASOPHILS % (MANUAL) 1 % (0-2); EOSINOPHILS % (MANUAL) 2 % (0-3); HYPOCHROMASIA 1+; LYMPHOCYTES % (MANUAL) 16 % (20-45); NEUTROPHILS % (MANUAL) 72 % (45-75); TOTAL CELLS COUNTED 100
[2016-10-30 20:45] LABS: ANISOCYTOSIS 2+; PLATELET ESTIMATE DECREASED; PLATELET MORPHOLOGY NORMAL; POLYCHROMASIA 1+
[2016-10-30] MEDS ORDERED: Phenytoin 100mg cap ORAL ONE (20:45)
[2016-10-30] MEDS ORDERED: KCl 10% 40mEq/30ml liquid ORAL ONE ×2 (20:45)
--- NOTE | 2016-10-30 20:51 | Emergency Room Report ---
History of Present Illness General Chief Complaint: Chest Pain Source: Patient Present Illness HPI 30YOM with significan medical history comes BIBEMS with substernal non- radiating chest pain during dialysis. Made it long term thru HD session today with chest pain. No assoc SOB, nausea/vomiting, diaphoresis States pain is different from chest pain he had 1-2 weeks ago when admitted for similar complaint. States on daily IV Abx for "infection in my heart." EMR indicates ?history pericarditis. He is due for cardiac surgery Nov 09. Been compliant with IV Abx. History is very significant - multiple consult notes too numerous to list here. He did have a cardiac echo which showed preserved EF at the time. Allergies: Coded Allergies: KETOROLAC (Verified Allergy, Mild, SOB, 06/28/11) METOCLOPRAMIDE (Verified Allergy, Mild, RASH, 06/28/11) NITROGLYCERIN (Verified Allergy, Mild, SEIZURES, 06/28/11) PENICILLINS (Verified Allergy, Mild, SOB, 06/28/11) PHENYTOIN (Verified Allergy, Mild, RASH, 06/28/11) ACETAMINOPHEN (Verified Allergy, Unknown, Shortness of Breath, 08/31/16) swelling throat, difficulty breathing CODEINE (Unverified Allergy, Unknown, 10/16/16) HEPARIN (Verified Allergy, Unknown, Shortness of Breath, 08/28/16) HYDRALAZINE (Verified Allergy, Unknown, 08/28/16) HYDROCODONE (Verified Allergy, Unknown, Shortness of Breath, 08/31/16) swelling throat, difficulty breathing IBUPROFEN (Verified Allergy, Unknown, RASH, 06/28/11) IODINE (Verified Allergy, Unknown, SHOCK, 06/28/11) POLYSTYRENE SULFONATE (Verified Allergy, Unknown, RASH, 06/28/11) PROMETHAZINE (Verified Allergy, Unknown, RASH, 06/28/11) Patient History Past Medical History: old chart reviewed, other - See HPI Past Surgical History: pacemaker Pertinent Family History: none Social History: Denies: smoking, alcohol use, drug use Immunizations: UTD Reviewed Nursing Documentation: PMH: Agreed, PSxH: Agreed Nursing Documentation-PMH Hx Cardiac Problems: Yes Hx Hypertension: Yes Hx Pacemaker: Yes Hx Asthma: Yes Hx Cancer: No Hx Gastrointestinal Problems: Yes Hx Dialysis: Yes - shunts both arms Hx Cerebrovascular Accident: Yes Hx Seizures: Yes Review of Systems All Other Systems: negative except mentioned in HPI Physical Exam Vital Signs Date Time Temp Pulse Resp B/P (MAP) Pulse Ox O2 Delivery O2 Flow Rate FiO2 10/30/16 18:39 99.5 101 18 177/102 100 Room Air Sp02 EP Interpretation: reviewed, normal General Appearance: normal inspection, well appearing, no apparent distress, alert, GCS 15, non-toxic, cachetic, thin, other - Watching video on iphone Head: normocephalic, atraumatic Eyes: bilateral eye PERRL, bilateral eye EOMI ENT: normal ENT inspection, hearing grossly normal, normal voice Neck: normal inspection, full range of motion, supple, no bony tend Respiratory: normal inspection, lungs clear, normal breath sounds, no respiratory distress, no retraction, no accessory muscle use, no wheezing, speaking full sentences, chest symmetrical, palpation of chest normal Cardiovascular #1: regular rate, rhythm, no edema Gastrointestinal: normal inspection, normal bowel sounds, non tender, soft, no guarding, no hernia Genitourinary: no CVA tenderness Musculoskeletal: normal inspection, back normal, normal range of motion, Oralia' s Sign negative, other - Contracted left upper extremity Neurologic: normal inspection, alert, oriented x3, responsive, social services counselor III-XII nml as tested, motor strength/tone normal, speech normal Psychiatric: normal inspection, judgement/insight normal, mood/affect normal Skin: normal inspection, normal color, no rash Lymphatic: normal inspection Medical Decision Making Diagnostic Impression: Primary Impression: Chest pain Qualified Codes: R07.9 - Chest pain, unspecified Additional Impressions: ESRF (end stage renal failure) Hypokalemia GI bleed Qualified Codes: K92.2 - Gastrointestinal hemorrhage, unspecified Uncontrolled hypertension ER Course Chest pain: ECG NSR. No ischemia. QTC 507 HypoK- repleted in ED. Alleged upper GI bleed: IV protonix given in ED. H&h stable. No additional vomiting in ED Subtherapeutic dilantin level: Patient endorses allergy to IV dilantin. We do not have regular PO dilatin unfortunately. Was given Ext release Dilantin 400 in ED Endorsed to Dr Hayward for tele admit at 851pm EKG Diagnostic Results Rate: normal Rhythm: NSR ST Segments: other - Prolonged QTc ASA given to the pt in ED: No Rhythm Strip Diag. Results EP Interpretation: yes Rate: 84 Rhythm: NSR, no PVC's, no ectopy Chest X-Ray Diagnostic Results Chest X-Ray Diagnostic Results : Chest X-Ray Ordered: Yes # of Views/Limited/Complete: 1 View Indication: Chest Pain EP Interpretation: Yes Interpretation: no consolidation, no effusion, no pneumothorax, other - Cardiomegaly, pacemaker Impression: No acute disease Electronically Signed by: Dr Adriana Palumbo MD Last Vital Signs Date Time Temp Pulse Resp B/P (MAP) Pulse Ox O2 Delivery O2 Flow Rate FiO2 10/30/16 18:50 95 18 Room Air 10/30/16 18:39 99.5 177/102 100 Status: improved Disposition: ADMITTED INPATIENT Condition: Serious Referrals: NON PHYSICIAN (PCP) ADRIANA PALUMBO M.D. Oct 30, 2016 20:51
[2016-10-30] MEDS ORDERED: Mylanta II UD 30ml ORAL PRN (21:15)
[2016-10-30] MEDS ORDERED: Zolpidem 5mg tab ORAL PRN (21:15)
[2016-10-30] MEDS ORDERED: LORazepam Inj 2mg/ml 1ml IV PRN (21:15)
[2016-10-30] MEDS ORDERED: Miralax 17gm pkt ORAL PRN (21:15)
[2016-10-30 21:41] VITALS: BP 181/106
[2016-10-30 23:41] VITALS: BP 148/97
[2016-10-31] VITALS: BP 148/97
[2016-10-31 04:00] VITALS: BP 157/93
[2016-10-31 08:10] VITALS: BP 151/84
[2016-10-31] MEDS: Lisinopril 10mg tab ORAL SCH (08:51)
[2016-10-31] MEDS: Depakote 500mg tab ORAL SCH ×2 (08:53→21:22)
[2016-10-31] MEDS ORDERED: cloNIDine 0.2mg Tab ORAL SCH (09:00)
[2016-10-31 09:19] LABS: BASOPHILS % (AUTO) 1.7 % (0.0-2.0); EOSINOPHILS % (AUTO) 3.9 % (0.0-3.0); LYMPHOCYTES % (AUTO) 24.1 % (20.0-45.0); MEAN CORPUSCULAR HEMOGLOBIN 30.5 PG (27.0-31.0); MEAN CORPUSCULAR HGB CONC 32.5 G/DL (32.0-36.0); MEAN CORPUSCULAR VOLUME 94 FL (80-99); MEAN PLATELET VOLUME 6.1 FL (6.5-10.1); MONOCYTES % (AUTO) 7.2 % (1.0-10.0); NEUTROPHILS % (AUTO) 63.1 % (45.0-75.0); PLATELET COUNT 106 K/UL (150-450); RED BLOOD COUNT 3.07 M/UL (4.70-6.10); RED CELL DISTRIBUTION WIDTH 18.5 % (11.6-14.8); WHITE BLOOD COUNT 3.5 K/UL (4.8-10.8)
[2016-10-31 09:26] LABS: ALBUMIN/GLOBULIN RATIO 1.5 (1.0-2.7); CALCIUM 8.3 mg/dL (8.6-10.2); CHOLESTEROL/HDL RATIO 4.3 (3.3-4.4); CREATININE 3.9 mg/dL (0.7-1.2); GLOMERULAR FILTRATION RATE 22.1 mL/min (>60); POTASSIUM 4.2 mEQ/L (3.4-4.9); TOTAL PROTEIN 5.5 g/dL (6.6-8.7)
[2016-10-31 09:36] LABS: THYROID STIMULATING HORMONE 2.21 uIU/mL (0.300-4.500)
--- NOTE | 2016-10-31 11:39 | Diagnostic Imaging Report ---
Indication: Chest pain Comparison: None 1117 A single view chest radiograph was obtained. Findings: Cardiomegaly is present. There is a left permacath, left innominate venous stent and SVC stent extending into the right innominate vein as well. Pacemaker is present. The lungs are clear. Bones are severely osteopenic. There is a deformity of the left humerus. Cholecystectomy clips noted. Impression: Chronic findings as discussed above.
[2016-10-31 11:42] VITALS: BP 170/96
--- NOTE | 2016-10-31 12:56 | Consultation ---
Consult Note Consult Note # [id number] Assessment/Plan A: The patient is a 30-year-old male with history of chronic pericarditis, etiology and the exact kind of management for this is not totally clear History of hypertension. Asthma. history of end-stage renal disease, on hemodialysis. PLAN: will continue the patient on IV Vancomycin and Rocephin d# 1 for now , upon DC pt may resume plan of AB rx followed by home health Monitor CBC Monitor BMP. will try to contact out side MDas to get more information re plan of AB Rx, ( pt still trying to get the primary MD who is managing Ab Rx ) FAITH WOOD M.D. Oct 31, 2016 12:56
--- NOTE | 2016-10-31 13:40 | History and Physical ---
History of Present Illness General Reason for Hospitalization: Chest Pain Present Illness HPI 30 year old male with past medical history of CVA, ESRF, Cachexia, pericarditis, recurrent hospitalization brought in by paramedics with substernal non-radiating chest pain during dialysis. Made it [facility] thru HD session today with chest pain. This pain is different from chest pain he had 1 -2 weeks ago when admitted for similar complaint. He is admitted to telemetry to rule out ACS. Allergies: Coded Allergies: KETOROLAC (Verified Allergy, Mild, SOB, 06/28/11) METOCLOPRAMIDE (Verified Allergy, Mild, RASH, 06/28/11) NITROGLYCERIN (Verified Allergy, Mild, SEIZURES, 06/28/11) PENICILLINS (Verified Allergy, Mild, SOB, 06/28/11) PHENYTOIN (Verified Allergy, Mild, RASH, 06/28/11) ACETAMINOPHEN (Verified Allergy, Unknown, Shortness of Breath, 08/31/16) swelling throat, difficulty breathing CODEINE (Unverified Allergy, Unknown, 10/16/16) HEPARIN (Verified Allergy, Unknown, Shortness of Breath, 08/28/16) HYDRALAZINE (Verified Allergy, Unknown, 08/28/16) HYDROCODONE (Verified Allergy, Unknown, Shortness of Breath, 08/31/16) swelling throat, difficulty breathing IBUPROFEN (Verified Allergy, Unknown, RASH, 06/28/11) IODINE (Verified Allergy, Unknown, SHOCK, 06/28/11) POLYSTYRENE SULFONATE (Verified Allergy, Unknown, RASH, 06/28/11) PROMETHAZINE (Verified Allergy, Unknown, RASH, 06/28/11) Medication History Scheduled Clonidine Hcl* (Catapres*), 0.2 MG ORAL DAILY, (Reported) Divalproex Sodium* (Depakote*), 250 MG PO Q12HR, (Reported) Labetalol Hcl* (Normodyne*), 300 MG ORAL DAILY, (Reported) Levetiracetam (Keppra), 1,000 MG ORAL BID, (Reported) Lisinopril* (Lisinopril*), 10 MG ORAL DAILY, (Reported) Nut.tx.impaired Renal Fxn,Soy (Nepro Carb Steady), PO QID, (Reported) Phenytoin Sodium Extended* (Dilantin*), 300 MG ORAL DAILY, (Reported) Miscellaneous Medications Pantoprazole* (Protonix*), 40 MG ORAL, (Reported) Patient History Healthcare decision maker Self Resuscitation status Advanced Directive on File Past Medical/Surgical History Past Medical/Surgical History: (1) Severe malnutrition (2) Pericarditis (3) History of CVA (cerebrovascular accident) (4) ESRF (end stage renal failure) (5) GI bleed Review of Systems All Other Systems: negative except mentioned in HPI Physical Exam General Appearance: cachetic Lines, tubes and drains: peripheral HEENT: normocephalic, atraumatic Neck: non-tender, normal alignment Respiratory/Chest: chest wall non-tender, lungs clear Breasts: no masses Cardiovascular/Chest: normal peripheral pulses Abdomen: normal bowel sounds, non tender Genitourinary/Rectal: normal genital exam Extremities: normal inspection Skin Exam: normal pigmentation Last 24 Hour Vital Signs Date Time Temp Pulse Resp B/P (MAP) Pulse Ox O2 Delivery O2 Flow Rate FiO2 10/31/16 11:42 97.6 86 20 170/96 100 Room Air 10/31/16 08:52 74 151/84 10/31/16 08:51 151/84 10/31/16 08:10 97.5 74 20 151/84 99 Room Air 10/31/16 08:00 76 10/31/16 04:07 73 10/31/16 04:00 97.2 72 18 157/93 94 Room Air 10/31/16 00:00 97.8 83 18 148/97 93 Room Air 10/30/16 23:44 78 10/30/16 23:41 97.8 83 18 148/97 93 Room Air 10/30/16 21:55 81 14 181/106 Room Air 10/30/16 21:41 99.5 81 14 181/106 100 Room Air 10/30/16 21:09 197/112 10/30/16 18:50 95 18 Room Air 10/30/16 18:39 99.5 101 18 177/102 100 Room Air Intake and Output 10/31/16 11/01/16 19:00 07:00 Intake Total 480 ml Balance 480 ml Intake Oral 480 ml Laboratory Tests Test 10/30/16 19:10 10/31/16 09:00 White Blood Count 3.1 K/UL (4.8-10.8) L 3.5 K/UL (4.8-10.8) L Red Blood Count 2.98 M/UL (4.70-6.10) L 3.07 M/UL (4.70-6.10) L Hemoglobin 9.2 G/DL (14.2-18.0) L 9.4 G/DL (14.2-18.0) L Hematocrit 28.0 % (42.0-52.0) L 28.8 % (42.0-52.0) L Mean Corpuscular Volume 94 FL (80-99) 94 FL (80-99) Mean Corpuscular Hemoglobin 30.9 PG (27.0-31.0) 30.5 PG (27.0-31.0) Mean Corpuscular Hemoglobin Concent 32.8 G/DL (32.0-36.0) 32.5 G/DL (32.0-36.0) Red Cell Distribution Width 18.0 % (11.6-14.8) H 18.5 % (11.6-14.8) H Platelet Count 112 K/UL (150-450) L 106 K/UL (150-450) L Mean Platelet Volume 5.7 FL (6.5-10.1) L 6.1 FL (6.5-10.1) L Neutrophils (%) (Auto) % (45.0-75.0) 63.1 % (45.0-75.0) Lymphocytes (%) (Auto) % (20.0-45.0) 24.1 % (20.0-45.0) Monocytes (%) (Auto) % (1.0-10.0) 7.2 % (1.0-10.0) Eosinophils (%) (Auto) % (0.0-3.0) 3.9 % (0.0-3.0) H Basophils (%) (Auto) % (0.0-2.0) 1.7 % (0.0-2.0) Differential Total Cells Counted 100 Neutrophils % (Manual) 72 % (45-75) Lymphocytes % (Manual) 16 % (20-45) L Monocytes % (Manual) 8 % (1-10) Eosinophils % (Manual) 2 % (0-3) Basophils % (Manual) 1 % (0-2) Band Neutrophils 1 % (0-8) Platelet Estimate Decreased L Platelet Morphology Normal Polychromasia 1+ Hypochromasia 1+ Anisocytosis 2+ Sodium Level 140 mEQ/L (135-145) 141 mEQ/L (135-145) Potassium Level 2.6 mEQ/L (3.4-4.9) *L 4.2 mEQ/L (3.4-4.9) # Chloride Level 103 mEQ/L (98-107) 103 mEQ/L (98-107) Carbon Dioxide Level 20 mEQ/L (20-30) 24 mEQ/L (20-30) Anion Gap 17 (5-15) H 14 (5-15) Blood Urea Nitrogen 14 mg/dL (7-23) 20 mg/dL (7-23) Creatinine 2.8 mg/dL (0.7-1.2) H 3.9 mg/dL (0.7-1.2) H Estimat Glomerular Filtration Rate 32.4 mL/min (>60) 22.1 mL/min (>60) Glucose Level 99 mg/dL (74-106) 98 mg/dL (74-106) Calcium Level 8.1 mg/dL (8.6-10.2) L 8.3 mg/dL (8.6-10.2) L Total Bilirubin 0.2 mg/dL (0.0-1.2) 0.2 mg/dL (0.0-1.2) Aspartate Amino Transf (AST/SGOT) 16 U/L (5-40) 12 U/L (5-40) Alanine Aminotransferase (ALT/SGPT) 6 U/L (3-41) 5 U/L (3-41) Alkaline Phosphatase 3541 U/L (40-129) H 3700 U/L (40-129) H Total Creatine Kinase 70 U/L (38-174) Creatine Kinase MB 4.2 ng/mL (< 6.7) Creatine Kinase MB Relative Index 6.0 Troponin I < 0.30 ng/mL (<=0.30) Pro-B-Type Natriuretic Peptide 2349 pg/mL (0-125) H Total Protein 5.6 g/dL (6.6-8.7) L 5.5 g/dL (6.6-8.7) L Albumin 3.1 g/dL (3.5-5.2) L 3.3 g/dL (3.5-5.2) L Globulin 2.5 g/dL 2.2 g/dL Albumin/Globulin Ratio 1.2 (1.0-2.7) 1.5 (1.0-2.7) Phenytoin (Dilantin) Level 1.2 ug/mL (10-20) L Triglycerides Level 161 mg/dL (< 150) H Cholesterol Level 162 mg/dL (< 200) LDL Cholesterol 92 mg/dL (60-99) HDL Cholesterol 38 mg/dL (> 60) Cholesterol/HDL Ratio 4.3 (3.3-4.4) Thyroid Stimulating Hormone (TSH) 2.210 uIU/mL (0.300-4.500) Height (Feet): 5 Height (Inches): 10.00 Weight (Pounds): 125 Medications Current Medications Medications (Trade) Dose Ordered Sig/Anant Route PRN Reason Start Time Stop Time Status Last Admin Dose Admin Al Hydroxide/Mg Hydroxide (Mylanta II) 30 ml Q6H PRN ORAL dyspepsia 10/30/16 21:15 11/29/16 21:14 Ceftriaxone Sodium 1 gm/ Dextrose 55 ml @ 110 mls/hr Q24H IVPB 10/31/16 13:00 11/07/16 12:59 UNV Clonidine HCl (Catapres) 0.2 mg DAILY ORAL 10/31/16 09:00 11/30/16 08:59 UNV Dextrose (Dextrose 50%) STAT PRN IV Hypoglycemia 10/30/16 21:15 11/29/16 21:14 Divalproex Sodium (Depakote) 500 mg EVERY 12 HOURS ORAL 10/31/16 09:00 11/30/16 08:59 10/31/16 08:53 Epoetin Rajinder (Procrit (for ESRD on dialysis)) 5,000 units SUN-WED-SUN SUBQ 11/01/16 21:00 12/01/16 20:59 UNV Heparin Sodium (Porcine) (Heparin 5000 units/ml) 5,000 units POSTHD INJ 11/01/16 13:15 12/01/16 13:14 UNV Heparin Sodium (Porcine) (Heparin Sod 1000 units/ml 10ml) 2,000 unit ONCE ONCE IV 11/01/16 13:15 11/01/16 13:16 UNV Hydromorphone HCl (Dilaudid) 2 mg Q4H PRN IV Severe Pain (Pain Scale 7-10) 10/30/16 21:15 11/06/16 21:14 10/31/16 10:44 Labetalol HCl (Normodyne) 200 mg Q12HR ORAL 10/31/16 09:00 11/30/16 08:59 10/31/16 08:52 Levetiracetam (Keppra) 1,000 mg Q12HR ORAL 10/30/16 23:30 11/29/16 23:29 10/31/16 08:52 Lisinopril (Zestril) 10 mg DAILY ORAL 10/31/16 09:00 11/30/16 08:59 10/31/16 08:51 Lorazepam (Ativan 2mg/ml 1ml) 0.5 mg Q4H PRN IV For Anxiety 10/30/16 21:15 11/06/16 21:14 Ondansetron HCl (Zofran) 4 mg Q6H PRN IVP Nausea & Vomiting 10/30/16 21:15 11/29/16 21:14 Pantoprazole (Protonix) 40 mg DAILY ORAL 10/31/16 09:00 11/30/16 08:59 10/31/16 08:52 Polyethylene Glycol (Miralax) 17 gm HSPRN PRN ORAL Constipation 10/30/16 21:15 11/29/16 21:14 Sodium Chloride 1,000 ml @ 500 mls/hr Q2H PRN IVLG sbp<90 during hd 11/01/16 13:02 12/01/16 13:01 UNV Vancomycin HCl (Vanco rx to dose) 1 ea DAILY PRN MISC Per rx protocol 10/31/16 13:00 11/30/16 12:59 UNV Zolpidem Tartrate (Ambien) 5 mg HSPRN PRN ORAL Insomnia 10/30/16 21:15 11/06/16 21:14 Assessment/Plan Problem List: (1) Uncontrolled hypertension ICD Codes: I10 - Essential (primary) hypertension SNOMED: 63803540 (2) Chest pain ICD Codes: R07.9 - Chest pain, unspecified SNOMED: 30086456 Qualifiers: Qualified Codes: R07.9 - Chest pain, unspecified (3) Hypokalemia ICD Codes: E87.6 - Hypokalemia SNOMED: 65602543 (4) ESRF (end stage renal failure) ICD Codes: N18.6 - End stage renal disease SNOMED: 05194446 (5) Left hemiplegia ICD Codes: G81.94 - Hemiplegia, unspecified affecting left nondominant side SNOMED: 891546244 (6) Pericarditis ICD Codes: I31.9 - Disease of pericardium, unspecified SNOMED: 6695045 (7) Severe malnutrition ICD Codes: E43 - Unspecified severe protein-calorie malnutrition SNOMED: 73692977 (8) Anemia ICD Codes: D64.9 - Anemia, unspecified SNOMED: 841344795 Assessment/Plan serial ekg, troponin, cardiology to see Hd symptomatic treatment BETHEL PACK Oct 31, 2016 13:40
--- NOTE | 2016-10-31 13:43 | Pulmonology Progress Note ---
Assessment/Plan Problems: (1) Chest pain (2) Hypokalemia (3) Uncontrolled hypertension (4) ESRF (end stage renal failure) (5) Left hemiplegia (6) Pericarditis (7) Severe malnutrition (8) Anemia Assessment/Plan symptomatic treatment HD by nephrology cariology to see ID to see again Subjective Constitutional: Reports: no symptoms HEENT: Repors: no symptoms Respiratory: Reports: no symptoms Allergies: Coded Allergies: KETOROLAC (Verified Allergy, Mild, SOB, 06/28/11) METOCLOPRAMIDE (Verified Allergy, Mild, RASH, 06/28/11) NITROGLYCERIN (Verified Allergy, Mild, SEIZURES, 06/28/11) PENICILLINS (Verified Allergy, Mild, SOB, 06/28/11) PHENYTOIN (Verified Allergy, Mild, RASH, 06/28/11) ACETAMINOPHEN (Verified Allergy, Unknown, Shortness of Breath, 08/31/16) swelling throat, difficulty breathing CODEINE (Unverified Allergy, Unknown, 10/16/16) HEPARIN (Verified Allergy, Unknown, Shortness of Breath, 08/28/16) HYDRALAZINE (Verified Allergy, Unknown, 08/28/16) HYDROCODONE (Verified Allergy, Unknown, Shortness of Breath, 08/31/16) swelling throat, difficulty breathing IBUPROFEN (Verified Allergy, Unknown, RASH, 06/28/11) IODINE (Verified Allergy, Unknown, SHOCK, 06/28/11) POLYSTYRENE SULFONATE (Verified Allergy, Unknown, RASH, 06/28/11) PROMETHAZINE (Verified Allergy, Unknown, RASH, 06/28/11) Objective Last 24 Hour Vital Signs Date Time Temp Pulse Resp B/P (MAP) Pulse Ox O2 Delivery O2 Flow Rate FiO2 10/31/16 11:42 97.6 86 20 170/96 100 Room Air 10/31/16 08:52 74 151/84 10/31/16 08:51 151/84 10/31/16 08:10 97.5 74 20 151/84 99 Room Air 10/31/16 08:00 76 10/31/16 04:07 73 10/31/16 04:00 97.2 72 18 157/93 94 Room Air 10/31/16 00:00 97.8 83 18 148/97 93 Room Air 10/30/16 23:44 78 10/30/16 23:41 97.8 83 18 148/97 93 Room Air 10/30/16 21:55 81 14 181/106 Room Air 10/30/16 21:41 99.5 81 14 181/106 100 Room Air 10/30/16 21:09 197/112 10/30/16 18:50 95 18 Room Air 10/30/16 18:39 99.5 101 18 177/102 100 Room Air Intake and Output 10/31/16 11/01/16 19:00 07:00 Intake Total 480 ml Balance 480 ml Intake Oral 480 ml General Appearance: WD/WN HEENT: normocephalic, atraumatic, anicteric Respiratory/Chest: chest wall non-tender, lungs clear Cardiovascular: normal peripheral pulses, normal rate Abdomen: normal bowel sounds, soft, non tender Genitourinary: normal external genitalia Extremities: no clubbing Skin: no lesions Neurologic/Psychiatric: no motor/sensory deficits, normal mood/affect Laboratory Tests 10/30/16 19:10: White Blood Count 3.1L, Red Blood Count 2.98L, Hemoglobin 9.2L, Hematocrit 28.0L , Mean Corpuscular Volume 94, Mean Corpuscular Hemoglobin 30.9, Mean Corpuscular Hemoglobin Concent 32.8, Red Cell Distribution Width 18.0H, Platelet Count 112L, Mean Platelet Volume 5.7L, Neutrophils (%) (Auto) , Lymphocytes (%) (Auto) , Monocytes (%) (Auto) , Eosinophils (%) (Auto) , Basophils (%) (Auto) , Differential Total Cells Counted 100, Neutrophils % ( Manual) 72, Lymphocytes % (Manual) 16L, Monocytes % (Manual) 8, Eosinophils % ( Manual) 2, Basophils % (Manual) 1, Band Neutrophils 1, Platelet Estimate DecreasedL, Platelet Morphology Normal, Polychromasia 1+, Hypochromasia 1+, Anisocytosis 2+, Sodium Level 140, Potassium Level 2.6*L, Chloride Level 103, Carbon Dioxide Level 20, Anion Gap 17H, Blood Urea Nitrogen 14, Creatinine 2.8H , Estimat Glomerular Filtration Rate 32.4, Glucose Level 99, Calcium Level 8.1L , Total Bilirubin 0.2, Aspartate Amino Transf (AST/SGOT) 16, Alanine Aminotransferase (ALT/SGPT) 6, Alkaline Phosphatase 3541H, Total Creatine Kinase 70, Creatine Kinase MB 4.2, Creatine Kinase MB Relative Index 6.0, Troponin I < 0.30, Pro-B-Type Natriuretic Peptide 2349H, Total Protein 5.6L, Albumin 3.1L, Globulin 2.5, Albumin/Globulin Ratio 1.2, Phenytoin (Dilantin) Level 1.2L 10/31/16 09:00: White Blood Count 3.5L, Red Blood Count 3.07L, Hemoglobin 9.4L, Hematocrit 28.8L , Mean Corpuscular Volume 94, Mean Corpuscular Hemoglobin 30.5, Mean Corpuscular Hemoglobin Concent 32.5, Red Cell Distribution Width 18.5H, Platelet Count 106L, Mean Platelet Volume 6.1L, Neutrophils (%) (Auto) 63.1, Lymphocytes (%) (Auto) 24.1, Monocytes (%) (Auto) 7.2, Eosinophils (%) (Auto) 3.9H, Basophils (%) (Auto) 1.7, Sodium Level 141, Potassium Level 4.2#, Chloride Level 103, Carbon Dioxide Level 24, Anion Gap 14, Blood Urea Nitrogen 20, Creatinine 3.9H, Estimat Glomerular Filtration Rate 22.1, Glucose Level 98, Calcium Level 8.3L, Total Bilirubin 0.2, Aspartate Amino Transf (AST/SGOT) 12, Alanine Aminotransferase (ALT/SGPT) 5, Alkaline Phosphatase 3700H, Total Protein 5.5L, Albumin 3.3L, Globulin 2.2, Albumin/Globulin Ratio 1.5, Triglycerides Level 161H, Cholesterol Level 162, LDL Cholesterol 92, HDL Cholesterol 38, Cholesterol/HDL Ratio 4.3, Thyroid Stimulating Hormone (TSH) 2.210 Current Medications Medications (Trade) Dose Ordered Sig/Anant Route PRN Reason Start Time Stop Time Status Last Admin Dose Admin Al Hydroxide/Mg Hydroxide (Mylanta II) 30 ml Q6H PRN ORAL dyspepsia 10/30/16 21:15 11/29/16 21:14 Ceftriaxone Sodium 1 gm/ Dextrose 55 ml @ 110 mls/hr Q24H IVPB 10/31/16 13:00 11/07/16 12:59 UNV Clonidine HCl (Catapres) 0.2 mg DAILY ORAL 10/31/16 09:00 11/30/16 08:59 UNV Dextrose (Dextrose 50%) STAT PRN IV Hypoglycemia 10/30/16 21:15 11/29/16 21:14 Divalproex Sodium (Depakote) 500 mg EVERY 12 HOURS ORAL 10/31/16 09:00 11/30/16 08:59 10/31/16 08:53 Epoetin Rajinder (Procrit (for ESRD on dialysis)) 5,000 units MON-WED-SUN SUBQ 11/01/16 21:00 12/01/16 20:59 UNV Heparin Sodium (Porcine) (Heparin 5000 units/ml) 5,000 units POSTHD INJ 11/01/16 13:15 12/01/16 13:14 UNV Heparin Sodium (Porcine) (Heparin Sod 1000 units/ml 10ml) 2,000 unit ONCE ONCE IV 11/01/16 13:15 11/01/16 13:16 UNV Hydromorphone HCl (Dilaudid) 2 mg Q4H PRN IV Severe Pain (Pain Scale 7-10) 10/30/16 21:15 11/06/16 21:14 10/31/16 10:44 Labetalol HCl (Normodyne) 200 mg Q12HR ORAL 10/31/16 09:00 11/30/16 08:59 10/31/16 08:52 Levetiracetam (Keppra) 1,000 mg Q12HR ORAL 10/30/16 23:30 11/29/16 23:29 10/31/16 08:52 Lisinopril (Zestril) 10 mg DAILY ORAL 10/31/16 09:00 11/30/16 08:59 10/31/16 08:51 Lorazepam (Ativan 2mg/ml 1ml) 0.5 mg Q4H PRN IV For Anxiety 10/30/16 21:15 11/06/16 21:14 Ondansetron HCl (Zofran) 4 mg Q6H PRN IVP Nausea & Vomiting 10/30/16 21:15 11/29/16 21:14 Pantoprazole (Protonix) 40 mg DAILY ORAL 10/31/16 09:00 11/30/16 08:59 10/31/16 08:52 Polyethylene Glycol (Miralax) 17 gm HSPRN PRN ORAL Constipation 10/30/16 21:15 11/29/16 21:14 Sodium Chloride 1,000 ml @ 500 mls/hr Q2H PRN IVLG sbp<90 during hd 11/01/16 13:02 12/01/16 13:01 UNV Vancomycin HCl (Vanco rx to dose) 1 ea DAILY PRN MISC Per rx protocol 10/31/16 13:00 11/30/16 12:59 UNV Zolpidem Tartrate (Ambien) 5 mg HSPRN PRN ORAL Insomnia 10/30/16 21:15 11/06/16 21:14 BETHEL PACK Oct 31, 2016 13:43
--- NOTE | 2016-10-31 15:08 | Neurology Progress Note ---
Objective Physical Exam Last Vital Signs Date Time Temp Pulse Resp B/P (MAP) Pulse Ox O2 Delivery O2 Flow Rate FiO2 10/31/16 12:00 79 10/31/16 11:42 97.6 20 170/96 100 Room Air Laboratory Tests Test 10/30/16 19:10 10/31/16 09:00 White Blood Count 3.1 K/UL (4.8-10.8) L 3.5 K/UL (4.8-10.8) L Red Blood Count 2.98 M/UL (4.70-6.10) L 3.07 M/UL (4.70-6.10) L Hemoglobin 9.2 G/DL (14.2-18.0) L 9.4 G/DL (14.2-18.0) L Hematocrit 28.0 % (42.0-52.0) L 28.8 % (42.0-52.0) L Mean Corpuscular Volume 94 FL (80-99) 94 FL (80-99) Mean Corpuscular Hemoglobin 30.9 PG (27.0-31.0) 30.5 PG (27.0-31.0) Mean Corpuscular Hemoglobin Concent 32.8 G/DL (32.0-36.0) 32.5 G/DL (32.0-36.0) Red Cell Distribution Width 18.0 % (11.6-14.8) H 18.5 % (11.6-14.8) H Platelet Count 112 K/UL (150-450) L 106 K/UL (150-450) L Mean Platelet Volume 5.7 FL (6.5-10.1) L 6.1 FL (6.5-10.1) L Neutrophils (%) (Auto) % (45.0-75.0) 63.1 % (45.0-75.0) Lymphocytes (%) (Auto) % (20.0-45.0) 24.1 % (20.0-45.0) Monocytes (%) (Auto) % (1.0-10.0) 7.2 % (1.0-10.0) Eosinophils (%) (Auto) % (0.0-3.0) 3.9 % (0.0-3.0) H Basophils (%) (Auto) % (0.0-2.0) 1.7 % (0.0-2.0) Differential Total Cells Counted 100 Neutrophils % (Manual) 72 % (45-75) Lymphocytes % (Manual) 16 % (20-45) L Monocytes % (Manual) 8 % (1-10) Eosinophils % (Manual) 2 % (0-3) Basophils % (Manual) 1 % (0-2) Band Neutrophils 1 % (0-8) Platelet Estimate Decreased L Platelet Morphology Normal Polychromasia 1+ Hypochromasia 1+ Anisocytosis 2+ Sodium Level 140 mEQ/L (135-145) 141 mEQ/L (135-145) Potassium Level 2.6 mEQ/L (3.4-4.9) *L 4.2 mEQ/L (3.4-4.9) # Chloride Level 103 mEQ/L (98-107) 103 mEQ/L (98-107) Carbon Dioxide Level 20 mEQ/L (20-30) 24 mEQ/L (20-30) Anion Gap 17 (5-15) H 14 (5-15) Blood Urea Nitrogen 14 mg/dL (7-23) 20 mg/dL (7-23) Creatinine 2.8 mg/dL (0.7-1.2) H 3.9 mg/dL (0.7-1.2) H Estimat Glomerular Filtration Rate 32.4 mL/min (>60) 22.1 mL/min (>60) Glucose Level 99 mg/dL (74-106) 98 mg/dL (74-106) Calcium Level 8.1 mg/dL (8.6-10.2) L 8.3 mg/dL (8.6-10.2) L Total Bilirubin 0.2 mg/dL (0.0-1.2) 0.2 mg/dL (0.0-1.2) Aspartate Amino Transf (AST/SGOT) 16 U/L (5-40) 12 U/L (5-40) Alanine Aminotransferase (ALT/SGPT) 6 U/L (3-41) 5 U/L (3-41) Alkaline Phosphatase 3541 U/L (40-129) H 3700 U/L (40-129) H Total Creatine Kinase 70 U/L (38-174) Creatine Kinase MB 4.2 ng/mL (< 6.7) Creatine Kinase MB Relative Index 6.0 Troponin I < 0.30 ng/mL (<=0.30) Pro-B-Type Natriuretic Peptide 2349 pg/mL (0-125) H Total Protein 5.6 g/dL (6.6-8.7) L 5.5 g/dL (6.6-8.7) L Albumin 3.1 g/dL (3.5-5.2) L 3.3 g/dL (3.5-5.2) L Globulin 2.5 g/dL 2.2 g/dL Albumin/Globulin Ratio 1.2 (1.0-2.7) 1.5 (1.0-2.7) Phenytoin (Dilantin) Level 1.2 ug/mL (10-20) L Triglycerides Level 161 mg/dL (< 150) H Cholesterol Level 162 mg/dL (< 200) LDL Cholesterol 92 mg/dL (60-99) HDL Cholesterol 38 mg/dL (> 60) Cholesterol/HDL Ratio 4.3 (3.3-4.4) Thyroid Stimulating Hormone (TSH) 2.210 uIU/mL (0.300-4.500) Random Vancomycin Level Pending Impression/Recommendations Recommendations #[id number] PIPPA KOHLER Oct 31, 2016 15:07
--- NOTE | 2016-10-31 15:11 | GI Initial Consult Note ---
History of Present Illness General Date patient seen: Oct 31, 2016 Time patient seen: 13:00 Reason for Hospitalization: Chest Pain Referring physician: BETHEL ROBERTS Reason for Consultation: ANEMIA Present Illness HPI 30YOM with significan medical history comes BIBEMS with substernal non- radiating chest pain during dialysis. Made it [facility] thru HD session today with chest pain. No assoc SOB, nausea/vomiting, diaphoresis States pain is different from chest pain he had 1-2 weeks ago when admitted for similar complaint. States on daily IV Abx for "infection in my heart." EMR indicates ?history pericarditis. He is due for cardiac surgery Nov 09. Been compliant with IV Abx. History is very significant - multiple consult notes too numerous to list here. He did have a cardiac echo which showed preserved EF at the time. GI Consult. HPI as noted above. GI consulted for anemia. Patient was recently discharged from [facility] s/p EGD, see full report presents today with SOB and CP for cardiac work up. In addition the patient has been complaining that he's had episodes of rectal bleeding where he saw blood clots. CT AP from previous admission showed sigmoid and rectal wall thickening. Biopsy negative. Home Meds Reported Medications Pantoprazole* (PROTONIX*) 40 Mg Tablet., 40 MG ORAL 08/28/16 Phenytoin Sodium Extended* (DILANTIN*) 100 Mg Capsule, 300 MG ORAL DAILY 08/28/16 Lisinopril* (LISINOPRIL*) 10 Mg Tablet, 10 MG ORAL DAILY 08/28/16 Nut.tx.impaired Renal Fxn,Soy (NEPRO CARB STEADY) 237 Ml Liquid, PO QID 08/28/16 Clonidine Hcl* (CATAPRES*) 0.2 Mg Tablet, 0.2 MG ORAL DAILY 08/28/16 Labetalol Hcl* (NORMODYNE*) 300 Mg Tablet, 300 MG ORAL DAILY 08/28/16 Divalproex Sodium* (DEPAKOTE*) 250 Mg Tablet., 250 MG PO Q12HR, TAB 08/28/16 Levetiracetam (KEPPRA) 1,000 Mg Tablet, 1000 MG ORAL BID, #30 TAB 0 Refills 08/28/16 Med list reviewed/reconciled: Yes Allergies: Coded Allergies: KETOROLAC (Verified Allergy, Mild, SOB, 06/28/11) METOCLOPRAMIDE (Verified Allergy, Mild, RASH, 06/28/11) NITROGLYCERIN (Verified Allergy, Mild, SEIZURES, 06/28/11) PENICILLINS (Verified Allergy, Mild, SOB, 06/28/11) PHENYTOIN (Verified Allergy, Mild, RASH, 06/28/11) ACETAMINOPHEN (Verified Allergy, Unknown, Shortness of Breath, 08/31/16) swelling throat, difficulty breathing CODEINE (Unverified Allergy, Unknown, 10/16/16) HEPARIN (Verified Allergy, Unknown, Shortness of Breath, 08/28/16) HYDRALAZINE (Verified Allergy, Unknown, 08/28/16) HYDROCODONE (Verified Allergy, Unknown, Shortness of Breath, 08/31/16) swelling throat, difficulty breathing IBUPROFEN (Verified Allergy, Unknown, RASH, 06/28/11) IODINE (Verified Allergy, Unknown, SHOCK, 06/28/11) POLYSTYRENE SULFONATE (Verified Allergy, Unknown, RASH, 06/28/11) PROMETHAZINE (Verified Allergy, Unknown, RASH, 06/28/11) Patient History History Provided By: Patient, Medical Record PMH Narrative Past Medical History: old chart reviewed, other - See HPI Past Surgical History: pacemaker Pertinent Family History: none Social History: Denies: smoking, alcohol use, drug use Immunizations: UTD Reviewed Nursing Documentation: PMH: Agreed, PSxH: Agreed Nursing Documentation-PMH Hx Cardiac Problems: Yes Hx Hypertension: Yes Hx Pacemaker: Yes Hx Asthma: Yes Hx Cancer: No Hx Gastrointestinal Problems: Yes Hx Dialysis: Yes - shunts both arms Hx Cerebrovascular Accident: Yes Hx Seizures: Yes Review of Systems All Other Systems: negative except mentioned in HPI Physical Exam Vital Signs Date Time Temp Pulse Resp B/P (MAP) Pulse Ox O2 Delivery O2 Flow Rate FiO2 10/30/16 18:39 99.5 101 18 177/102 100 Room Air Sp02 EP Interpretation: reviewed Labs Laboratory Tests Test 10/30/16 19:10 10/31/16 09:00 White Blood Count 3.1 K/UL (4.8-10.8) L 3.5 K/UL (4.8-10.8) L Red Blood Count 2.98 M/UL (4.70-6.10) L 3.07 M/UL (4.70-6.10) L Hemoglobin 9.2 G/DL (14.2-18.0) L 9.4 G/DL (14.2-18.0) L Hematocrit 28.0 % (42.0-52.0) L 28.8 % (42.0-52.0) L Mean Corpuscular Volume 94 FL (80-99) 94 FL (80-99) Mean Corpuscular Hemoglobin 30.9 PG (27.0-31.0) 30.5 PG (27.0-31.0) Mean Corpuscular Hemoglobin Concent 32.8 G/DL (32.0-36.0) 32.5 G/DL (32.0-36.0) Red Cell Distribution Width 18.0 % (11.6-14.8) H 18.5 % (11.6-14.8) H Platelet Count 112 K/UL (150-450) L 106 K/UL (150-450) L Mean Platelet Volume 5.7 FL (6.5-10.1) L 6.1 FL (6.5-10.1) L Neutrophils (%) (Auto) % (45.0-75.0) 63.1 % (45.0-75.0) Lymphocytes (%) (Auto) % (20.0-45.0) 24.1 % (20.0-45.0) Monocytes (%) (Auto) % (1.0-10.0) 7.2 % (1.0-10.0) Eosinophils (%) (Auto) % (0.0-3.0) 3.9 % (0.0-3.0) H Basophils (%) (Auto) % (0.0-2.0) 1.7 % (0.0-2.0) Differential Total Cells Counted 100 Neutrophils % (Manual) 72 % (45-75) Lymphocytes % (Manual) 16 % (20-45) L Monocytes % (Manual) 8 % (1-10) Eosinophils % (Manual) 2 % (0-3) Basophils % (Manual) 1 % (0-2) Band Neutrophils 1 % (0-8) Platelet Estimate Decreased L Platelet Morphology Normal Polychromasia 1+ Hypochromasia 1+ Anisocytosis 2+ Sodium Level 140 mEQ/L (135-145) 141 mEQ/L (135-145) Potassium Level 2.6 mEQ/L (3.4-4.9) *L 4.2 mEQ/L (3.4-4.9) # Chloride Level 103 mEQ/L (98-107) 103 mEQ/L (98-107) Carbon Dioxide Level 20 mEQ/L (20-30) 24 mEQ/L (20-30) Anion Gap 17 (5-15) H 14 (5-15) Blood Urea Nitrogen 14 mg/dL (7-23) 20 mg/dL (7-23) Creatinine 2.8 mg/dL (0.7-1.2) H 3.9 mg/dL (0.7-1.2) H Estimat Glomerular Filtration Rate 32.4 mL/min (>60) 22.1 mL/min (>60) Glucose Level 99 mg/dL (74-106) 98 mg/dL (74-106) Calcium Level 8.1 mg/dL (8.6-10.2) L 8.3 mg/dL (8.6-10.2) L Total Bilirubin 0.2 mg/dL (0.0-1.2) 0.2 mg/dL (0.0-1.2) Aspartate Amino Transf (AST/SGOT) 16 U/L (5-40) 12 U/L (5-40) Alanine Aminotransferase (ALT/SGPT) 6 U/L (3-41) 5 U/L (3-41) Alkaline Phosphatase 3541 U/L (40-129) H 3700 U/L (40-129) H Total Creatine Kinase 70 U/L (38-174) Creatine Kinase MB 4.2 ng/mL (< 6.7) Creatine Kinase MB Relative Index 6.0 Troponin I < 0.30 ng/mL (<=0.30) Pro-B-Type Natriuretic Peptide 2349 pg/mL (0-125) H Total Protein 5.6 g/dL (6.6-8.7) L 5.5 g/dL (6.6-8.7) L Albumin 3.1 g/dL (3.5-5.2) L 3.3 g/dL (3.5-5.2) L Globulin 2.5 g/dL 2.2 g/dL Albumin/Globulin Ratio 1.2 (1.0-2.7) 1.5 (1.0-2.7) Phenytoin (Dilantin) Level 1.2 ug/mL (10-20) L Triglycerides Level 161 mg/dL (< 150) H Cholesterol Level 162 mg/dL (< 200) LDL Cholesterol 92 mg/dL (60-99) HDL Cholesterol 38 mg/dL (> 60) Cholesterol/HDL Ratio 4.3 (3.3-4.4) Thyroid Stimulating Hormone (TSH) 2.210 uIU/mL (0.300-4.500) Random Vancomycin Level Pending General Appearance: well appearing, no apparent distress, alert, thin Head: normocephalic EENT: PERRL/EOMI, normal ENT inspection Neck: supple Respiratory: no respiratory distress Cardiovascular: normal rate Gastrointestinal: soft Rectal: deferred Neurologic: normal inspection, alert, oriented x3, responsive Psychiatric: normal inspection, judgement/insight normal, memory normal Skin: normal inspection, normal color, no rash, warm/dry Lymphatic: normal inspection, no adenopathy Current Medications Current Medications Medications (Trade) Dose Ordered Sig/Anant Route PRN Reason Start Time Stop Time Status Last Admin Dose Admin Al Hydroxide/Mg Hydroxide (Mylanta II) 30 ml Q6H PRN ORAL dyspepsia 10/30/16 21:15 11/29/16 21:14 Ceftriaxone Sodium 1 gm/ Dextrose 55 ml @ 110 mls/hr Q24H IVPB 10/31/16 15:00 11/07/16 14:59 Chlorhexidine Gluconate (Yessi-Hex 2%) 1 applic DAILY TOPIC 11/01/16 09:00 12/01/16 08:59 Clonidine HCl (Catapres TTS-2) 1 patch QWEEK TDERMAL 10/31/16 15:00 11/30/16 14:59 Dextrose (Dextrose 50%) STAT PRN IV Hypoglycemia 10/30/16 21:15 11/29/16 21:14 Divalproex Sodium (Depakote) 500 mg EVERY 12 HOURS ORAL 10/31/16 09:00 11/30/16 08:59 10/31/16 08:53 Epoetin Rajinder (Procrit (for ESRD on dialysis)) 5,000 units MON-WED-SUN SUBQ 11/01/16 21:00 12/01/16 20:59 Heparin Sodium (Porcine) (Heparin 5000 units/ml) 5,000 units POSTHD PRN INJ HD 11/01/16 06:00 11/01/16 23:59 Heparin Sodium (Porcine) (Heparin Sod 1000 units/ml 10ml) 2,000 unit ONCE PRN IV HD USE 11/01/16 06:00 11/01/16 23:59 Hydromorphone HCl (Dilaudid) 2 mg Q4H PRN IV Severe Pain (Pain Scale 7-10) 10/30/16 21:15 11/06/16 21:14 10/31/16 14:53 Labetalol HCl (Normodyne) 200 mg Q12HR ORAL 10/31/16 09:00 11/30/16 08:59 10/31/16 08:52 Levetiracetam (Keppra) 1,000 mg Q12HR ORAL 10/30/16 23:30 11/29/16 23:29 10/31/16 08:52 Lisinopril (Zestril) 10 mg DAILY ORAL 10/31/16 09:00 11/30/16 08:59 10/31/16 08:51 Lorazepam (Ativan 2mg/ml 1ml) 0.5 mg Q4H PRN IV For Anxiety 10/30/16 21:15 11/06/16 21:14 Ondansetron HCl (Zofran) 4 mg Q6H PRN IVP Nausea & Vomiting 10/30/16 21:15 11/29/16 21:14 Pantoprazole (Protonix) 40 mg DAILY ORAL 10/31/16 09:00 11/30/16 08:59 10/31/16 08:52 Polyethylene Glycol (Miralax) 17 gm HSPRN PRN ORAL Constipation 10/30/16 21:15 11/29/16 21:14 Sodium Chloride 1,000 ml @ 500 mls/hr Q2H PRN IVLG sbp<90 during hd 11/01/16 06:00 11/01/16 23:59 Vancomycin HCl (Vanco rx to dose) 1 ea DAILY PRN MISC Per rx protocol 10/31/16 13:00 11/30/16 12:59 UNV Zolpidem Tartrate (Ambien) 5 mg HSPRN PRN ORAL Insomnia 10/30/16 21:15 10/2/17 21:14 GI: Plan Problems: (1) Sigmoid thickening (2) Severe malnutrition (3) Anemia (4) Chest pain (5) GI bleed Plan CP AP noncon reviewed >> constipation, HH - Equivocal wall thickening of the distal sigmoid and rectum. - Extensive mixed osteolytic and osteoblastic, mostly osteolytic, lesions of the visualized axial skeleton. These are new since these exam of 2011. 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 However, there are pathologies including metastatic disease should also be considered. CEA elevation SUMMARY OF FINDINGS: 1. Large hiatal hernia. 2. Minimum distal esophagitis. 3. Bile reflux. 4. Diffuse gastritis. 5. Prominent fold in the antrum, status post biopsy. 6. Sharp bend in the peripyloric region before going to the duodenum making getting into the duodenum difficult. 7. Biopsy unremarkable RECOMMENDATIONS: tentatively schedule patient for colonoscopy pending cardiac clearance - CLD tomorrow am monitor H&H, prn transfusions fu labs Discussed with Dr. Sandoval. Thank you for referring this patient, we will follow. Ashleigh Marie N.P. Oct 31, 2016 15:11
[2016-10-31 16:00] VITALS: BP 152/87
[2016-10-31] MEDS ORDERED: Vancomycin 1gm/D5W 275ml IVPB ONE ×2 (16:00)
[2016-10-31] MEDS: cefTRIAXone 1 GM in D5W 55 ML IVPB SCH (16:42)
[2016-10-31] MEDS: DiphenhydrAMINE 50mg/ml Inj IVP PRN (18:03)
[2016-10-31] MEDS ORDERED: Phenytoin 250mg/5ml vial IVP ONE (18:45)
[2016-10-31] MEDS ORDERED: Depakote 500mg tab ORAL ONE (18:45)
[2016-10-31 20:00] VITALS: BP 164/93
--- NOTE | 2016-10-31 23:00 | Consultation ---
DATE OF CONSULTATION: 10/31/2016 NEUROLOGICAL CONSULTATION REQUESTING PHYSICIAN: Kaylah Hayward M.D. History of Present Illness: The patient is a 30-year-old male seen in neurological consultation to evaluate exacerbation of seizures. According to the patient, over the last month or two, seizures become more frequent than ever, every other day, predominantly coinciding with the day when he is seen on hemodialysis. He was brought this time for chest pain, which he developed during dialysis. There was no other associated symptomatology. On admission, vital signs included blood pressure 175/102, heart rate of 101, and temperature 99.5 degrees. His imaging, chest x-ray reveals chronic findings, cardiomegaly, left PermCath stent, left innominate venous SVC stenting to right innominate vein, pacemaker in place, and deformity of left humerus. Laboratory work included CBC study with low WBC 3.1, hemoglobin 9.2, hematocrit 28.0, and platelets 112,000. Chemistry panel, low potassium 2.6, elevated creatinine 2.8. BNP of 2349. Alkaline phosphatase 3541. Normal TSH. Elevated with triglycerides 161. Toxicology panel, phenytoin level 1.2. Since admission till present, there were no further paroxysmal event noted. Past Medical History: The patient known to have a hemorrhagic stroke resulting in left hemiparesis. He has a history of chronic seizure disorder, dating back to hemorrhagic stroke, seizures were intractable, he is maintained on several anticonvulsants, but also he had VNS implant in 2010, although last month or two, appears disconnected, nonfunctioning. History of severe malnutrition, history of pericarditis, end-stage renal disease, on hemodialysis, history of GI bleed, chronic seizure disorder, as well as he is on pacemaker. Medications: Prior to admission included clonidine, Depakote 250 mg b.i.d., labetalol, Keppra 1000 mg b.i.d., lisinopril, pantoprazole, and phenytoin 300 mg daily. Allergies: He has multiple allergies including nitro, Ketoralac, penicillin, phenytoin, acetaminophen, codeine, heparin, hydralazine, hydrocodone, ibuprofen, iodine, and promethazine. SOCIAL HISTORY: Denies alcohol or drug abuse. FAMILY HISTORY: Noncontributory. Review of Systems: Intermittent seizures, generalized weakness, discomfort in left upper and left lower extremity, episodes of chest pain, and slight abdominal discomfort. No urine or bowel incontinence. PHYSICAL EXAMINATION: General: This is a well-developed, cachectic ill-appearing man, not in acute distress. Vital Signs: His vital signs now are stable, blood pressure 170/96 and temperature 97.6 degrees. HEENT: Head, normocephalic. No evidence of injuries. Eyes, ears, and throat are clear. NECK: Supple. No meningeal signs. Musculoskeletal: Remarkable for contracted left upper extremity. Peripheral pulses 1+ symmetric. AV fistula bilaterally in both upper extremities noted. Pacemaker and VNS palpated on the left upper chest. Peripheral pulses 1+ symmetric. Mental Status: Alert and oriented x3 with no evidence of aphasia or apraxia. Cognitive function normal. Cranial Nerve II: Pupils, both responding to light and accommodation. Extraocular movement intact. No nystagmus. CRANIAL NERVE V: Normal corneal responses. CRANIAL NERVE VII: Droop of left nasolabial fold. CRANIAL NERVE VIII: Normal hearing. CRANIAL NERVE IX THROUGH XII: Within normal limits. Motor Examination: Spastic and contracted left upper extremity. Spastic left lower extremity with an incomplete extension of his left knee and incomplete extension of right knee. Peripheral pulses 1+ symmetric. IMPRESSION: 1. Chronic seizure disorder, poorly controlled, rule out noncompliance. 2. Status post right hemorrhagic stroke with left hemiplegia. 3. Pericarditis. 4. Hypertension. 5. End-stage renal disease, on hemodialysis. Recommendation: We will adjust anticonvulsants. The patient is receiving Depakote 500 mg b.i.d. We will check blood level and adjust the dose appropriately while monitoring liver function. Dilantin 300 mg daily, but have extra dose of 300 mg after each hemodialysis and Keppra continue 1000 mg b.i.d., but adding 1000 mg extra dose after each hemodialysis. We will contact installation and repair technician to re-establish VNS. Thank you for allowing me to see this interesting patient in neurological consultation. Luke Mathis M.D. DR: NAEL JOB#: [id number] CC:
[2016-11-01] VITALS: BP 165/105
[2016-11-01] MEDS: DiphenhydrAMINE 50mg/ml Inj IVP PRN ×4 (00:24→21:18)
--- NOTE | 2016-11-01 03:30 | Consultation ---
DATE OF CONSULTATION: 10/31/2016 INFECTIOUS DISEASE CONSULTATION CONSULTING PHYSICIAN: Jorge L Nina M.D. REFERRING PHYSICIAN: Kaylah Hayward M.D. REASON FOR CONSULTATION: Evaluation of the patient for pericarditis. History Of Present Illness: The patient is a 30-year-old male with multiple medical problems as listed below, who was admitted again for chest pain. The patient reportedly has history of pericarditis, details of that is not clear for me. The patient apparently has been on chronic antibiotic treatment with end date somewhere in November. Around that time, the patient is going for pericardiectomy. Infectious Disease consultation has been requested for further evaluation of the patient and antibiotic management. PAST MEDICAL HISTORY: 1. History of chronic pericarditis. 2. Hypertension. 3. Asthma. 4. End-stage renal disease, on hemodialysis. MEDICATIONS: IV Rocephin and vancomycin. FAMILY HISTORY: Noncontributory. Review Of Systems: A 10-point review was done and except what is mentioned above has been negative. PHYSICAL EXAMINATION: Vital Signs: Temperature 98 degrees, pulse 86, blood pressure 152/87, and respiratory rate 18. HEENT: No pale conjunctivae. No icterus. NECK: No lymphadenopathy. CHEST: Clear. HEART: S1 and S2. ABDOMEN: Soft and nontender. EXTREMITIES: No cyanosis at this time. NEUROLOGIC: Awake. Laboratory Data: White blood cells 3.5, hemoglobin 9.4, and platelets 106,000. Recent test for hepatitis B and HIV has been negative. BUN 20 and creatinine 2.9. Liver function tests are unremarkable. Elevated alkaline phosphatase over 3000 that appears to be chronic. Assessment: The patient is a 30-year-old male with multiple medical problems, who reportedly has chronic pericarditis. Again, details of that are not clear. PLAN: 1. We will continue the patient on IV vancomycin and Rocephin as planned from outpatient. 2. I have asked the patient to provide the Infectious Disease doctor, who is managing his antibiotics and to give more information upon the patient's condition. 3. Management on hemodialysis per Nephrology. 4. Follow Cardiology recommendations. 5. Based on the patient's clinical course and labs, we will do further recommendation. Thank you, Dr. Hayward, for allowing me to participate in the care of this patient. I will follow the patient with you during this hospitalization. Jorge L Nina M.D. DR: KOJO JOB#: [id number] CC:
[2016-11-01 04:00] VITALS: BP 161/95
[2016-11-01 05:38] LABS: MEAN CORPUSCULAR HEMOGLOBIN 30.8 PG (27.0-31.0); MEAN CORPUSCULAR HGB CONC 32.4 G/DL (32.0-36.0); MEAN CORPUSCULAR VOLUME 95 FL (80-99); MEAN PLATELET VOLUME 7.1 FL (6.5-10.1); PLATELET COUNT 97 K/UL (150-450); RED BLOOD COUNT 2.89 M/UL (4.70-6.10); RED CELL DISTRIBUTION WIDTH 19.2 % (11.6-14.8); WHITE BLOOD COUNT 3.9 K/UL (4.8-10.8)
[2016-11-01] MEDS ORDERED: Heparin 5000 units/ml inj INJ PRN (06:00)
[2016-11-01] MEDS ORDERED: Heparin Sod 1000 units/ml 10ml IV PRN (06:00)
[2016-11-01 06:06] LABS: CALCIUM 8.4 mg/dL (8.6-10.2); CREATININE 4.9 mg/dL (0.7-1.2); POTASSIUM 4.3 mEQ/L (3.4-4.9)
--- NOTE | 2016-11-01 07:00 | Nephrology Progress Note ---
Assessment/Plan Plan HD today pending. Case DW Dr. Hayward. Patient has been under my care for more than 10 years. Subjective Subjective Wants to be transferred to where he has a vascular procedure scheduled for Sunday. Objective Objective Last 24 Hour Vital Signs Date Time Temp Pulse Resp B/P (MAP) Pulse Ox O2 Delivery O2 Flow Rate FiO2 11/01/16 04:00 87 11/01/16 04:00 97.9 88 20 161/95 100 Room Air 11/01/16 00:00 91 11/01/16 00:00 98.2 85 20 165/105 100 Room Air 10/31/16 21:23 164 93/81 10/31/16 20:00 79 10/31/16 20:00 97.7 85 20 164/93 100 Room Air 10/31/16 16:42 152/87 10/31/16 16:00 98.1 78 20 152/87 98 Room Air 10/31/16 16:00 81 10/31/16 12:00 79 10/31/16 11:42 97.6 86 20 170/96 100 Room Air 10/31/16 08:52 74 151/84 10/31/16 08:51 151/84 10/31/16 08:10 97.5 74 20 151/84 99 Room Air 10/31/16 08:00 76 Laboratory Tests 10/31/16 09:00: White Blood Count 3.5L, Red Blood Count 3.07L, Hemoglobin 9.4L, Hematocrit 28.8L , Mean Corpuscular Volume 94, Mean Corpuscular Hemoglobin 30.5, Mean Corpuscular Hemoglobin Concent 32.5, Red Cell Distribution Width 18.5H, Platelet Count 106L, Mean Platelet Volume 6.1L, Neutrophils (%) (Auto) 63.1, Lymphocytes (%) (Auto) 24.1, Monocytes (%) (Auto) 7.2, Eosinophils (%) (Auto) 3.9H, Basophils (%) (Auto) 1.7, Sodium Level 141, Potassium Level 4.2#, Chloride Level 103, Carbon Dioxide Level 24, Anion Gap 14, Blood Urea Nitrogen 20, Creatinine 3.9H, Estimat Glomerular Filtration Rate 22.1, Glucose Level 98, Calcium Level 8.3L, Total Bilirubin 0.2, Aspartate Amino Transf (AST/SGOT) 12, Alanine Aminotransferase (ALT/SGPT) 5, Alkaline Phosphatase 3700H, Total Protein 5.5L, Albumin 3.3L, Globulin 2.2, Albumin/Globulin Ratio 1.5, Triglycerides Level 161H, Cholesterol Level 162, LDL Cholesterol 92, HDL Cholesterol 38, Cholesterol/HDL Ratio 4.3, Thyroid Stimulating Hormone (TSH) 2.210, Random Vancomycin Level 4.1 11/01/16 04:45: White Blood Count 3.9L, Red Blood Count 2.89L, Hemoglobin 8.9L, Hematocrit 27.6L , Mean Corpuscular Volume 95, Mean Corpuscular Hemoglobin 30.8, Mean Corpuscular Hemoglobin Concent 32.4, Red Cell Distribution Width 19.2H, Platelet Count 97L, Mean Platelet Volume 7.1, Neutrophils (%) (Auto) , Lymphocytes (%) (Auto) , Monocytes (%) (Auto) , Eosinophils (%) (Auto) , Basophils (%) (Auto) , Sodium Level 141, Potassium Level 4.3, Chloride Level 104 , Carbon Dioxide Level 23, Anion Gap 14, Blood Urea Nitrogen 27H, Creatinine 4.9H, Estimat Glomerular Filtration Rate 17.0, Glucose Level 77, Calcium Level 8.4L Height (Feet): 5 Height (Inches): 10.00 Weight (Pounds): 125 Objective Cachectic. Muscle dystrophy. Mild exophthalmos. CV rr Lungs CTA Abd SNT. BS + E No CCE. L arm carpopedal deformity. ARNIE SWEET Nov 01, 2016 07:00
[2016-11-01] MEDS ORDERED: Tubing IV Secondary IV ONE (08:10)
[2016-11-01] MEDS ORDERED: NS 275ml ONE (08:10)
[2016-11-01 08:34] VITALS: BP 200/119
[2016-11-01] MEDS: Dyna-Hex 2% Top Sol 2oz TOPIC SCH (08:38)
[2016-11-01] MEDS: Lisinopril 10mg tab ORAL SCH (08:39)
[2016-11-01] MEDS: Depakote 500mg tab ORAL SCH ×2 (08:40→21:10)
--- NOTE | 2016-11-01 08:45 | Consultation ---
DATE OF CONSULTATION: 10/31/2016 NEPHROLOGY CONSULTATION ATTENDING PHYSICIAN: Kaylah Hayward M.D. REASON FOR CONSULTATION: This is a dialysis patient. History Of Present Illness: This is an unfortunate 30-year-old male, who has been my patient for more than 10 years. Unfortunately, the patient spends most of his time as an inpatient. The patient has had almost continuous admission from one hospital to another. He has had multiple admissions. The patient likes to be admitted. He states to me yesterday continuously trying to be admitted to different hospitals. Unfortunately, due to the patient's insurance, the transportation would not take him too far and the patient eventually found his way to be admitted close to the dialysis center mainly to this hospital since he does not like to be admitted to [facility]. PAST MEDICAL HISTORY: 1. End-stage renal failure, on dialysis. 2. Advanced myopathy. 3. Status post cerebrovascular accident. 4. Multiple skeletal abnormalities. 5. Right arm deformity. 6. Anemia of chronic kidney disease. 7. Hypertensive cardiovascular disease. 8. Seizure disorder. 9. History of recurrent upper and lower gastrointestinal bleeding. Home Medications: Clonidine, Depakote, labetalol, Keppra, lisinopril, Protonix, and Dilantin. Allergies: Tylenol, which is doubtful, codeine, heparin although the patient gets heparin on dialysis, hydralazine, hydrocodone, ibuprofen, iodine, ketorolac, Reglan, and nitroglycerin. FAMILY HISTORY: Unremarkable. Social History: The patient lives at home with his mother. Habits, nonsmoker and nondrinker. There is no history of illicit drug abuse. Review Of Systems: HEENT: Hearing and eyesight are normal. Endocrine: No history of diabetes, thyroid, or adrenal problems. Respiratory: He denies shortness of breath, cough, or hemoptysis. Cardiovascular: The patient has cardiomyopathy. He has had cardiac workup numerous times for ischemic heart disease and was ruled out and has no coronary artery disease. Respiratory: The patient has no significant pulmonary disease. Musculoskeletal: The patient has multiple skeletal abnormalities and muscle dystrophy with advanced muscle atrophy. Neurologic: The patient has history of seizures. PHYSICAL EXAMINATION: General: This is a young, chronically ill-appearing male, who looks chronically ill and underdeveloped. Vital Signs: Blood pressure 170/96, pulse 86 and regular, respirations 20, and temperature 97.6. HEENT: The head shows signs of bilateral exophthalmos. Neck: Supple. Trachea midline. There is no lymphadenopathy or thyromegaly. LUNGS: Clear to auscultation and percussion. Heart: Regular rate. Regular rhythm. He has grade 2 systolic ejection murmur. ABDOMEN: Soft and nontender. Bowel sounds were active. Extremities: He has multiple skeletal abnormalities and contractures with muscle atrophy. Neurological: The patient is alert and oriented x4. He is able to ambulate with assistance. Laboratory And Ancillary Data: Hematocrit 28, WBC 3.5, which is at his baseline, and platelet count is 106,000 which is at his baseline. Dilantin level 1.2. Serum chemistry Immediate postdialysis K 2.6, potassium today 4.2, creatinine 3.9, BUN 20, calcium 8.3. Alkaline phosphatase 3700, which is at his baseline. Lipid panel: Triglycerides 161, which is at his baseline. TSH 2.2. ASSESSMENT: 1. The patient's chest pain is known from before and does not represent ischemic heart disease as the patient had multiple previous workup that was negative including coronary angiogram. 2. End-stage renal failure, on dialysis. 3. Advanced myopathy. 4. Status post cerebrovascular accident. 5. Multiple skeletal abnormalities. 6. Right arm deformity. 7. Anemia of chronic kidney disease. 8. Hypertensive cardiovascular disease. 9. Seizure disorder. 10. History of recurrent upper and lower gastrointestinal bleeding. Plan: The patient will continue his home medications and will get his regular dialysis on Sunday, Sunday, and Sunday. Nitza Gaines M.D. DR: SOUTH JOB#: [id number] CC: LINA
--- NOTE | 2016-11-01 10:31 | GI Progress Note ---
Assessment/Plan Problems: (1) Alkaline phosphatase elevation ICD Codes: R74.8 - Abnormal levels of other serum enzymes SNOMED: 285036463 (2) Severe malnutrition ICD Codes: E43 - Unspecified severe protein-calorie malnutrition SNOMED: 65979085 (3) Sigmoid thickening ICD Codes: K63.9 - Disease of intestine, unspecified SNOMED: 021317733 (4) Anemia ICD Codes: D64.9 - Anemia, unspecified SNOMED: 735414291 (5) GI bleed ICD Codes: K92.2 - Gastrointestinal hemorrhage, unspecified SNOMED: 17185715 Qualifiers: Qualified Codes: K92.2 - Gastrointestinal hemorrhage, unspecified (6) Elevated CEA ICD Codes: R97.0 - Elevated carcinoembryonic antigen [CEA] SNOMED: 00897719, 894599000 Status: unchanged Status Narrative Discussed with Dr. Sandoval. Assessment/Plan CP AP noncon reviewed >> constipation, HH - Equivocal wall thickening of the distal sigmoid and rectum. - Extensive mixed osteolytic and osteoblastic, mostly osteolytic, lesions of the visualized axial skeleton. These are new since these exam of 2011. 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 However, there are pathologies including metastatic disease should also be considered. CEA elevation SUMMARY OF FINDINGS: 1. Large hiatal hernia. 2. Minimum distal esophagitis. 3. Bile reflux. 4. Diffuse gastritis. 5. Prominent fold in the antrum, status post biopsy. 6. Sharp bend in the peripyloric region before going to the duodenum making getting into the duodenum difficult. 7. Biopsy unremarkable RECOMMENDATIONS: Colonoscopy scheduled tomorrow. - CLD, NPO @ [facility]. - hold all blood thinners tonight monitor H&H, prn transfusions fu labs Subjective Gastrointestinal/Abdominal: Reports: abdominal pain Subjective black stool Objective Last 24 Hour Vital Signs Date Time Temp Pulse Resp B/P (MAP) Pulse Ox O2 Delivery O2 Flow Rate FiO2 11/01/16 08:42 88 200/117 11/01/16 08:39 200/117 11/01/16 08:34 97.0 88 20 200/119 100 Room Air 11/01/16 04:00 87 11/01/16 04:00 97.9 88 20 161/95 100 Room Air 11/01/16 00:00 91 11/01/16 00:00 98.2 85 20 165/105 100 Room Air 10/31/16 21:23 164 93/81 10/31/16 20:00 79 10/31/16 20:00 97.7 85 20 164/93 100 Room Air 10/31/16 16:42 152/87 10/31/16 16:00 98.1 78 20 152/87 98 Room Air 10/31/16 16:00 81 10/31/16 12:00 79 10/31/16 11:42 97.6 86 20 170/96 100 Room Air Laboratory Tests Test 11/01/16 04:45 White Blood Count 3.9 K/UL (4.8-10.8) L Red Blood Count 2.89 M/UL (4.70-6.10) L Hemoglobin 8.9 G/DL (14.2-18.0) L Hematocrit 27.6 % (42.0-52.0) L Mean Corpuscular Volume 95 FL (80-99) Mean Corpuscular Hemoglobin 30.8 PG (27.0-31.0) Mean Corpuscular Hemoglobin Concent 32.4 G/DL (32.0-36.0) Red Cell Distribution Width 19.2 % (11.6-14.8) H Platelet Count 97 K/UL (150-450) L Mean Platelet Volume 7.1 FL (6.5-10.1) Neutrophils (%) (Auto) % (45.0-75.0) Lymphocytes (%) (Auto) % (20.0-45.0) Monocytes (%) (Auto) % (1.0-10.0) Eosinophils (%) (Auto) % (0.0-3.0) Basophils (%) (Auto) % (0.0-2.0) Sodium Level 141 mEQ/L (135-145) Potassium Level 4.3 mEQ/L (3.4-4.9) Chloride Level 104 mEQ/L (98-107) Carbon Dioxide Level 23 mEQ/L (20-30) Anion Gap 14 (5-15) Blood Urea Nitrogen 27 mg/dL (7-23) H Creatinine 4.9 mg/dL (0.7-1.2) H Estimat Glomerular Filtration Rate 17.0 mL/min (>60) Glucose Level 77 mg/dL (74-106) Calcium Level 8.4 mg/dL (8.6-10.2) L Height (Feet): 5 Height (Inches): 10.00 Weight (Pounds): 125 General Appearance: no apparent distress, alert, thin Cardiovascular: normal rate Respiratory/Chest: normal breath sounds, no respiratory distress Abdominal Exam: normal bowel sounds, non tender, soft Ashleigh Marie N.P. Nov 01, 2016 10:31
--- NOTE | 2016-11-01 11:55 | Pulmonology Progress Note ---
Assessment/Plan Problems: (1) Chest pain (2) Hypokalemia (3) Uncontrolled hypertension (4) ESRF (end stage renal failure) (5) Left hemiplegia (6) Pericarditis (7) Severe malnutrition (8) Anemia Assessment/Plan symptomatic treatment HD by nephrology cariology to see all notes reviewed and appreciated. Subjective ROS Limited/Unobtainable: No Interval Events: no new complains Allergies: Coded Allergies: KETOROLAC (Verified Allergy, Mild, SOB, 06/28/11) METOCLOPRAMIDE (Verified Allergy, Mild, RASH, 06/28/11) NITROGLYCERIN (Verified Allergy, Mild, SEIZURES, 06/28/11) PENICILLINS (Verified Allergy, Mild, SOB, 06/28/11) PHENYTOIN (Verified Allergy, Mild, RASH, 06/28/11) ACETAMINOPHEN (Verified Allergy, Unknown, Shortness of Breath, 08/31/16) swelling throat, difficulty breathing CODEINE (Unverified Allergy, Unknown, 10/16/16) HEPARIN (Verified Allergy, Unknown, Shortness of Breath, 08/28/16) HYDRALAZINE (Verified Allergy, Unknown, 08/28/16) HYDROCODONE (Verified Allergy, Unknown, Shortness of Breath, 08/31/16) swelling throat, difficulty breathing IBUPROFEN (Verified Allergy, Unknown, RASH, 06/28/11) IODINE (Verified Allergy, Unknown, SHOCK, 06/28/11) POLYSTYRENE SULFONATE (Verified Allergy, Unknown, RASH, 06/28/11) PROMETHAZINE (Verified Allergy, Unknown, RASH, 06/28/11) Objective Last 24 Hour Vital Signs Date Time Temp Pulse Resp B/P (MAP) Pulse Ox O2 Delivery O2 Flow Rate FiO2 11/01/16 08:42 88 200/117 11/01/16 08:39 200/117 11/01/16 08:34 97.0 88 20 200/119 100 Room Air 11/01/16 04:00 87 11/01/16 04:00 97.9 88 20 161/95 100 Room Air 11/01/16 00:00 91 11/01/16 00:00 98.2 85 20 165/105 100 Room Air 10/31/16 21:23 164 93/81 10/31/16 20:00 79 10/31/16 20:00 97.7 85 20 164/93 100 Room Air 10/31/16 16:42 152/87 10/31/16 16:00 98.1 78 20 152/87 98 Room Air 10/31/16 16:00 81 10/31/16 12:00 79 General Appearance: cachetic HEENT: normocephalic, atraumatic Respiratory/Chest: chest wall non-tender, lungs clear, normal breath sounds Cardiovascular: normal peripheral pulses, normal rate Abdomen: soft, non tender Genitourinary: normal external genitalia Extremities: no clubbing Skin: no rash 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, no motor/sensory deficits Laboratory Tests 11/01/16 04:45: White Blood Count 3.9L, Red Blood Count 2.89L, Hemoglobin 8.9L, Hematocrit 27.6L , Mean Corpuscular Volume 95, Mean Corpuscular Hemoglobin 30.8, Mean Corpuscular Hemoglobin Concent 32.4, Red Cell Distribution Width 19.2H, Platelet Count 97L, Mean Platelet Volume 7.1, Neutrophils (%) (Auto) , Lymphocytes (%) (Auto) , Monocytes (%) (Auto) , Eosinophils (%) (Auto) , Basophils (%) (Auto) , Sodium Level 141, Potassium Level 4.3, Chloride Level 104 , Carbon Dioxide Level 23, Anion Gap 14, Blood Urea Nitrogen 27H, Creatinine 4.9H, Estimat Glomerular Filtration Rate 17.0, Glucose Level 77, Calcium Level 8.4L Current Medications Medications (Trade) Dose Ordered Sig/Anant Route PRN Reason Start Time Stop Time Status Last Admin Dose Admin Al Hydroxide/Mg Hydroxide (Mylanta II) 30 ml Q6H PRN ORAL dyspepsia 10/30/16 21:15 11/29/16 21:14 Ceftriaxone Sodium 1 gm/ Dextrose 55 ml @ 110 mls/hr Q24H IVPB 10/31/16 15:00 11/07/16 14:59 10/31/16 16:42 Chlorhexidine Gluconate (Yessi-Hex 2%) 1 applic DAILY TOPIC 11/01/16 09:00 12/01/16 08:59 11/01/16 08:38 Clonidine HCl (Catapres TTS-2) 1 patch QWEEK TDERMAL 10/31/16 15:00 11/30/16 14:59 10/31/16 16:42 Dextrose (Dextrose 50%) STAT PRN IV Hypoglycemia 10/30/16 21:15 11/29/16 21:14 Diphenhydramine HCl (Benadryl) 25 mg Q6H PRN IVP Itching 10/31/16 17:00 11/30/16 16:59 11/01/16 06:22 Divalproex Sodium (Depakote) 500 mg EVERY 12 HOURS ORAL 10/31/16 09:00 11/30/16 08:59 11/01/16 08:40 Divalproex Sodium (Depakote) 500 mg ONCE ONCE ORAL 11/01/16 18:45 11/01/16 18:46 Epoetin Rajinder (Procrit (for ESRD on dialysis)) 5,000 units SUN-SUN-SUN SUBQ 11/01/16 21:00 12/01/16 20:59 Heparin Sodium (Porcine) (Heparin 5000 units/ml) 5,000 units POSTHD PRN INJ HD 11/01/16 06:00 11/01/16 23:59 Heparin Sodium (Porcine) (Heparin Sod 1000 units/ml 10ml) 2,000 unit ONCE PRN IV HD USE 11/01/16 06:00 11/01/16 23:59 Hydromorphone HCl (Dilaudid) 2 mg Q4H PRN IV Severe Pain (Pain Scale 7-10) 10/30/16 21:15 11/06/16 21:14 11/01/16 08:38 Labetalol HCl (Normodyne) 200 mg Q12HR ORAL 10/31/16 09:00 11/30/16 08:59 11/01/16 08:42 Levetiracetam (Keppra) 1,000 mg ONCE ONCE ORAL 11/01/16 18:45 11/01/16 18:46 Levetiracetam (Keppra) 1,000 mg Q12HR ORAL 10/30/16 23:30 11/29/16 23:29 11/01/16 08:41 Lisinopril (Zestril) 10 mg DAILY ORAL 10/31/16 09:00 11/30/16 08:59 11/01/16 08:39 Lorazepam (Ativan 2mg/ml 1ml) 0.5 mg Q4H PRN IV For Anxiety 10/30/16 21:15 11/06/16 21:14 Ondansetron HCl (Zofran) 4 mg Q6H PRN IVP Nausea & Vomiting 10/30/16 21:15 11/29/16 21:14 Pantoprazole (Protonix) 40 mg DAILY ORAL 10/31/16 09:00 11/30/16 08:59 11/01/16 08:38 Polyethylene Glycol (Miralax) 17 gm HSPRN PRN ORAL Constipation 10/30/16 21:15 11/29/16 21:14 Sodium Chloride 1,000 ml @ 500 mls/hr Q2H PRN IVLG sbp<90 during hd 11/01/16 06:00 11/01/16 23:59 Vancomycin HCl (Vanco rx to dose) 1 ea DAILY PRN MISC Per rx protocol 10/31/16 13:00 11/30/16 12:59 Zolpidem Tartrate (Ambien) 5 mg HSPRN PRN ORAL Insomnia 10/30/16 21:15 11/06/16 21:14 BETHEL PACK Nov 01, 2016 11:55
[2016-11-01 12:43] VITALS: BP 175/114
[2016-11-01 15:38] VITALS: BP 152/97
[2016-11-01] MEDS ORDERED: Bisacodyl EC 5mg tab ORAL ONE (16:00)
[2016-11-01] MEDS ORDERED: Polyethylene Glycol 238gm bottle ORAL ONE (16:00)
[2016-11-01] MEDS: cefTRIAXone 1 GM in D5W 55 ML IVPB SCH (16:03)
[2016-11-01] MEDS ORDERED: Fleet's Mineral Oil Enema RECTAL ONE ×2 (18:00→23:00)
--- NOTE | 2016-11-01 18:11 | Cardiology Progress Note ---
Assessment/Plan Assessment/Plan [id number] Objective Last 24 Hour Vital Signs Date Time Temp Pulse Resp B/P (MAP) Pulse Ox O2 Delivery O2 Flow Rate FiO2 11/01/16 15:38 97.7 88 18 152/97 100 Room Air 11/01/16 15:12 107 11/01/16 12:43 97.0 85 20 175/114 100 Room Air 11/01/16 12:00 87 11/01/16 08:42 88 200/117 11/01/16 08:39 200/117 11/01/16 08:34 97.0 88 20 200/119 100 Room Air 11/01/16 08:00 107 11/01/16 04:00 87 11/01/16 04:00 97.9 88 20 161/95 100 Room Air 11/01/16 00:00 91 11/01/16 00:00 98.2 85 20 165/105 100 Room Air 10/31/16 21:23 164 93/81 10/31/16 20:00 79 10/31/16 20:00 97.7 85 20 164/93 100 Room Air Intake and Output 11/01/16 11/02/16 19:00 07:00 Intake Total 120 ml Balance 120 ml Intake Oral 120 ml Laboratory Tests Test 11/01/16 04:45 White Blood Count 3.9 K/UL (4.8-10.8) L Red Blood Count 2.89 M/UL (4.70-6.10) L Hemoglobin 8.9 G/DL (14.2-18.0) L Hematocrit 27.6 % (42.0-52.0) L Mean Corpuscular Volume 95 FL (80-99) Mean Corpuscular Hemoglobin 30.8 PG (27.0-31.0) Mean Corpuscular Hemoglobin Concent 32.4 G/DL (32.0-36.0) Red Cell Distribution Width 19.2 % (11.6-14.8) H Platelet Count 97 K/UL (150-450) L Mean Platelet Volume 7.1 FL (6.5-10.1) Neutrophils (%) (Auto) % (45.0-75.0) Lymphocytes (%) (Auto) % (20.0-45.0) Monocytes (%) (Auto) % (1.0-10.0) Eosinophils (%) (Auto) % (0.0-3.0) Basophils (%) (Auto) % (0.0-2.0) Sodium Level 141 mEQ/L (135-145) Potassium Level 4.3 mEQ/L (3.4-4.9) Chloride Level 104 mEQ/L (98-107) Carbon Dioxide Level 23 mEQ/L (20-30) Anion Gap 14 (5-15) Blood Urea Nitrogen 27 mg/dL (7-23) H Creatinine 4.9 mg/dL (0.7-1.2) H Estimat Glomerular Filtration Rate 17.0 mL/min (>60) Glucose Level 77 mg/dL (74-106) Calcium Level 8.4 mg/dL (8.6-10.2) SAMINA GLASER Nov 01, 2016 18:11
[2016-11-01] MEDS ORDERED: Depakote 500mg tab ORAL ONE (18:45)
--- NOTE | 2016-11-01 19:58 | Infectious Diseases Prog Note ---
Assessment/Plan Assessment/Plan Assessment/Plan A: The patient is a 30-year-old male with history of chronic pericarditis, etiology and the exact kind of management for this is not totally clear History of hypertension. Asthma. history of end-stage renal disease, on hemodialysis. PLAN: will continue the patient on IV Vancomycin and Rocephin d# 2 for now , upon DC pt may resume plan of AB rx followed by home health Monitor CBC Monitor BMP. will try to contact out side MDas to get more information re plan of AB Rx, ( pt still trying to get the primary MD who is managing Ab Rx ) Subjective Constitutional: Denies: no symptoms, fever, chills, fatigue, anorexia, drenching sweats, other Allergies: Coded Allergies: KETOROLAC (Verified Allergy, Mild, SOB, 06/28/11) METOCLOPRAMIDE (Verified Allergy, Mild, RASH, 06/28/11) NITROGLYCERIN (Verified Allergy, Mild, SEIZURES, 06/28/11) PENICILLINS (Verified Allergy, Mild, SOB, 06/28/11) PHENYTOIN (Verified Allergy, Mild, RASH, 06/28/11) ACETAMINOPHEN (Verified Allergy, Unknown, Shortness of Breath, 08/31/16) swelling throat, difficulty breathing CODEINE (Unverified Allergy, Unknown, 10/16/16) HEPARIN (Verified Allergy, Unknown, Shortness of Breath, 08/28/16) HYDRALAZINE (Verified Allergy, Unknown, 08/28/16) HYDROCODONE (Verified Allergy, Unknown, Shortness of Breath, 08/31/16) swelling throat, difficulty breathing IBUPROFEN (Verified Allergy, Unknown, RASH, 06/28/11) IODINE (Verified Allergy, Unknown, SHOCK, 06/28/11) POLYSTYRENE SULFONATE (Verified Allergy, Unknown, RASH, 06/28/11) PROMETHAZINE (Verified Allergy, Unknown, RASH, 06/28/11) Objective Vital Signs Last 24 Hour Vital Signs Date Time Temp Pulse Resp B/P (MAP) Pulse Ox O2 Delivery O2 Flow Rate FiO2 11/01/16 16:00 86 11/01/16 15:38 97.7 88 18 152/97 100 Room Air 11/01/16 15:12 107 11/01/16 12:43 97.0 85 20 175/114 100 Room Air 11/01/16 12:00 87 11/01/16 08:42 88 200/117 11/01/16 08:39 200/117 11/01/16 08:34 97.0 88 20 200/119 100 Room Air 11/01/16 08:00 107 11/01/16 04:00 87 11/01/16 04:00 97.9 88 20 161/95 100 Room Air 11/01/16 00:00 91 11/01/16 00:00 98.2 85 20 165/105 100 Room Air 10/31/16 21:23 164 93/81 10/31/16 20:00 79 10/31/16 20:00 97.7 85 20 164/93 100 Room Air Height (Feet): 5 Height (Inches): 10.00 Weight (Pounds): 125 HEENT: atraumatic Respiratory/Chest: normal breath sounds Cardiovascular: regular rhythm Abdomen: soft, non tender Laboratory Tests Test 11/01/16 04:45 White Blood Count 3.9 K/UL (4.8-10.8) L Red Blood Count 2.89 M/UL (4.70-6.10) L Hemoglobin 8.9 G/DL (14.2-18.0) L Hematocrit 27.6 % (42.0-52.0) L Mean Corpuscular Volume 95 FL (80-99) Mean Corpuscular Hemoglobin 30.8 PG (27.0-31.0) Mean Corpuscular Hemoglobin Concent 32.4 G/DL (32.0-36.0) Red Cell Distribution Width 19.2 % (11.6-14.8) H Platelet Count 97 K/UL (150-450) L Mean Platelet Volume 7.1 FL (6.5-10.1) Neutrophils (%) (Auto) % (45.0-75.0) Lymphocytes (%) (Auto) % (20.0-45.0) Monocytes (%) (Auto) % (1.0-10.0) Eosinophils (%) (Auto) % (0.0-3.0) Basophils (%) (Auto) % (0.0-2.0) Sodium Level 141 mEQ/L (135-145) Potassium Level 4.3 mEQ/L (3.4-4.9) Chloride Level 104 mEQ/L (98-107) Carbon Dioxide Level 23 mEQ/L (20-30) Anion Gap 14 (5-15) Blood Urea Nitrogen 27 mg/dL (7-23) H Creatinine 4.9 mg/dL (0.7-1.2) H Estimat Glomerular Filtration Rate 17.0 mL/min (>60) Glucose Level 77 mg/dL (74-106) Calcium Level 8.4 mg/dL (8.6-10.2) L Current Medications Medications (Trade) Dose Ordered Sig/Anant Route PRN Reason Start Time Stop Time Status Last Admin Dose Admin Al Hydroxide/Mg Hydroxide (Mylanta II) 30 ml Q6H PRN ORAL dyspepsia 10/30/16 21:15 11/29/16 21:14 Ceftriaxone Sodium 1 gm/ Dextrose 55 ml @ 110 mls/hr Q24H IVPB 10/31/16 15:00 11/07/16 14:59 11/01/16 16:03 Chlorhexidine Gluconate (Yessi-Hex 2%) 1 applic DAILY TOPIC 11/01/16 09:00 12/01/16 08:59 11/01/16 08:38 Clonidine HCl (Catapres TTS-2) 1 patch QWEEK TDERMAL 10/31/16 15:00 11/30/16 14:59 10/31/16 16:42 Dextrose (Dextrose 50%) STAT PRN IV Hypoglycemia 10/30/16 21:15 11/29/16 21:14 Diphenhydramine HCl (Benadryl) 25 mg Q6H PRN IVP Itching 10/31/16 17:00 11/30/16 16:59 11/01/16 12:56 Divalproex Sodium (Depakote) 500 mg EVERY 12 HOURS ORAL 10/31/16 09:00 11/30/16 08:59 11/01/16 08:40 Epoetin Rajinder (Procrit (for ESRD on dialysis)) 5,000 units SUN-SUN-SUN SUBQ 11/01/16 21:00 12/01/16 20:59 Heparin Sodium (Porcine) (Heparin 5000 units/ml) 5,000 units POSTHD PRN INJ HD 11/01/16 06:00 11/01/16 23:59 Heparin Sodium (Porcine) (Heparin Sod 1000 units/ml 10ml) 2,000 unit ONCE PRN IV HD USE 11/01/16 06:00 11/01/16 23:59 Hydromorphone HCl (Dilaudid) 2 mg Q4H PRN IV Severe Pain (Pain Scale 7-10) 10/30/16 21:15 11/06/16 21:14 11/01/16 17:28 Labetalol HCl (Normodyne) 200 mg Q12HR ORAL 10/31/16 09:00 11/30/16 08:59 11/01/16 08:42 Levetiracetam (Keppra) 1,000 mg Q12HR ORAL 10/30/16 23:30 11/29/16 23:29 11/01/16 08:41 Lisinopril (Prinivil) 20 mg DAILY ORAL 11/02/16 09:00 12/02/16 08:59 Lorazepam (Ativan 2mg/ml 1ml) 0.5 mg Q4H PRN IV For Anxiety 10/30/16 21:15 11/06/16 21:14 Mineral Oil (Fleet's Mineral Oil Enema) 133 ml ONCE ONCE RECTAL 11/01/16 23:00 11/01/16 23:01 Ondansetron HCl (Zofran) 4 mg Q6H PRN IVP Nausea & Vomiting 10/30/16 21:15 11/29/16 21:14 Pantoprazole (Protonix) 40 mg DAILY ORAL 10/31/16 09:00 11/30/16 08:59 11/01/16 08:38 Polyethylene Glycol (Miralax) 17 gm HSPRN PRN ORAL Constipation 10/30/16 21:15 11/29/16 21:14 11/01/16 17:29 Sodium Chloride 1,000 ml @ 500 mls/hr Q2H PRN IVLG sbp<90 during hd 11/01/16 06:00 11/01/16 23:59 Vancomycin HCl (Vanco rx to dose) 1 ea DAILY PRN MISC Per rx protocol 10/31/16 13:00 11/30/16 12:59 Zolpidem Tartrate (Ambien) 5 mg HSPRN PRN ORAL Insomnia 10/30/16 21:15 11/06/16 21:14 FAITH WOOD M.D. Nov 01, 2016 19:58
[2016-11-01 20:10] VITALS: BP 166/105
--- NOTE | 2016-11-01 20:20 | Consultation ---
History of Present Illness General Chief Complaint: Chest Pain Referring physician: BETHEL ROBERTS Reason for Consultation: ANEMIA Present Illness HPI 30 year old male with past medical history of CVA, ESRF, Cachexia, pericarditis, recurrent hospitalization brought in by paramedics with substernal non-radiating chest pain during dialysis. the pt denied depressive sxs. he was anxious and was in position. the pt c/o decrease appetite and anorexia. no si Allergies: Coded Allergies: KETOROLAC (Verified Allergy, Mild, SOB, 06/28/11) METOCLOPRAMIDE (Verified Allergy, Mild, RASH, 06/28/11) NITROGLYCERIN (Verified Allergy, Mild, SEIZURES, 06/28/11) PENICILLINS (Verified Allergy, Mild, SOB, 06/28/11) PHENYTOIN (Verified Allergy, Mild, RASH, 06/28/11) ACETAMINOPHEN (Verified Allergy, Unknown, Shortness of Breath, 08/31/16) swelling throat, difficulty breathing CODEINE (Unverified Allergy, Unknown, 10/16/16) HEPARIN (Verified Allergy, Unknown, Shortness of Breath, 08/28/16) HYDRALAZINE (Verified Allergy, Unknown, 08/28/16) HYDROCODONE (Verified Allergy, Unknown, Shortness of Breath, 08/31/16) swelling throat, difficulty breathing IBUPROFEN (Verified Allergy, Unknown, RASH, 06/28/11) IODINE (Verified Allergy, Unknown, SHOCK, 06/28/11) POLYSTYRENE SULFONATE (Verified Allergy, Unknown, RASH, 06/28/11) PROMETHAZINE (Verified Allergy, Unknown, RASH, 06/28/11) Medication History Scheduled Clonidine Hcl* (Catapres*), 0.2 MG ORAL DAILY, (Reported) Divalproex Sodium* (Depakote*), 250 MG PO Q12HR, (Reported) Labetalol Hcl* (Normodyne*), 300 MG ORAL DAILY, (Reported) Levetiracetam (Keppra), 1,000 MG ORAL BID, (Reported) Lisinopril* (Lisinopril*), 10 MG ORAL DAILY, (Reported) Nut.tx.impaired Renal Fxn,Soy (Nepro Carb Steady), PO QID, (Reported) Phenytoin Sodium Extended* (Dilantin*), 300 MG ORAL DAILY, (Reported) Miscellaneous Medications Pantoprazole* (Protonix*), 40 MG ORAL, (Reported) Patient History History Provided By: Patient, Medical Record, PMD Healthcare decision maker Self Resuscitation status Advanced Directive on File Past Medical/Surgical History Past Medical/Surgical History: (1) Hypertensive emergency (2) GI bleed (3) Hypokalemia (4) Anemia (5) Chest pain (6) Sigmoid thickening (7) Elevated CEA (8) ESRF (end stage renal failure) (9) Left hemiplegia (10) History of CVA (cerebrovascular accident) (11) Pericarditis (12) Severe malnutrition (13) Alkaline phosphatase elevation (14) Uncontrolled hypertension (15) Pharyngitis Review of Systems Psychiatric: Reports: prior hx, anxiety, depressed feelings Physical Exam General Appearance: no apparent distress, alert, cachetic Neurologic: alert, oriented x 3, responsive, depressed affect Last 24 Hour Vital Signs Date Time Temp Pulse Resp B/P (MAP) Pulse Ox O2 Delivery O2 Flow Rate FiO2 11/01/16 16:00 86 11/01/16 15:38 97.7 88 18 152/97 100 Room Air 11/01/16 15:12 107 11/01/16 12:43 97.0 85 20 175/114 100 Room Air 11/01/16 12:00 87 11/01/16 08:42 88 200/117 11/01/16 08:39 200/117 11/01/16 08:34 97.0 88 20 200/119 100 Room Air 11/01/16 08:00 107 11/01/16 04:00 87 11/01/16 04:00 97.9 88 20 161/95 100 Room Air 11/01/16 00:00 91 11/01/16 00:00 98.2 85 20 165/105 100 Room Air 10/31/16 21:23 164 93/81 Intake and Output 11/01/16 11/02/16 19:00 07:00 Intake Total 240 ml Balance 240 ml Intake Oral 240 ml Laboratory Tests Test 11/01/16 04:45 White Blood Count 3.9 K/UL (4.8-10.8) L Red Blood Count 2.89 M/UL (4.70-6.10) L Hemoglobin 8.9 G/DL (14.2-18.0) L Hematocrit 27.6 % (42.0-52.0) L Mean Corpuscular Volume 95 FL (80-99) Mean Corpuscular Hemoglobin 30.8 PG (27.0-31.0) Mean Corpuscular Hemoglobin Concent 32.4 G/DL (32.0-36.0) Red Cell Distribution Width 19.2 % (11.6-14.8) H Platelet Count 97 K/UL (150-450) L Mean Platelet Volume 7.1 FL (6.5-10.1) Neutrophils (%) (Auto) % (45.0-75.0) Lymphocytes (%) (Auto) % (20.0-45.0) Monocytes (%) (Auto) % (1.0-10.0) Eosinophils (%) (Auto) % (0.0-3.0) Basophils (%) (Auto) % (0.0-2.0) Sodium Level 141 mEQ/L (135-145) Potassium Level 4.3 mEQ/L (3.4-4.9) Chloride Level 104 mEQ/L (98-107) Carbon Dioxide Level 23 mEQ/L (20-30) Anion Gap 14 (5-15) Blood Urea Nitrogen 27 mg/dL (7-23) H Creatinine 4.9 mg/dL (0.7-1.2) H Estimat Glomerular Filtration Rate 17.0 mL/min (>60) Glucose Level 77 mg/dL (74-106) Calcium Level 8.4 mg/dL (8.6-10.2) L Height (Feet): 5 Height (Inches): 10.00 Weight (Pounds): 125 Medications Current Medications Medications (Trade) Dose Ordered Sig/Anant Route PRN Reason Start Time Stop Time Status Last Admin Dose Admin Al Hydroxide/Mg Hydroxide (Mylanta II) 30 ml Q6H PRN ORAL dyspepsia 10/30/16 21:15 11/29/16 21:14 Ceftriaxone Sodium 1 gm/ Dextrose 55 ml @ 110 mls/hr Q24H IVPB 10/31/16 15:00 11/07/16 14:59 11/01/16 16:03 Chlorhexidine Gluconate (Yessi-Hex 2%) 1 applic DAILY TOPIC 11/01/16 09:00 12/01/16 08:59 11/01/16 08:38 Clonidine HCl (Catapres TTS-2) 1 patch QWEEK TDERMAL 10/31/16 15:00 11/30/16 14:59 10/31/16 16:42 Dextrose (Dextrose 50%) STAT PRN IV Hypoglycemia 10/30/16 21:15 11/29/16 21:14 Diphenhydramine HCl (Benadryl) 25 mg Q6H PRN IVP Itching 10/31/16 17:00 11/30/16 16:59 11/01/16 12:56 Divalproex Sodium (Depakote) 500 mg EVERY 12 HOURS ORAL 10/31/16 09:00 11/30/16 08:59 11/01/16 08:40 Epoetin Rajinder (Procrit (for ESRD on dialysis)) 5,000 units SUN-SUN-SUN SUBQ 11/01/16 21:00 12/01/16 20:59 Heparin Sodium (Porcine) (Heparin 5000 units/ml) 5,000 units POSTHD PRN INJ HD 11/01/16 06:00 11/01/16 23:59 Heparin Sodium (Porcine) (Heparin Sod 1000 units/ml 10ml) 2,000 unit ONCE PRN IV HD USE 11/01/16 06:00 11/01/16 23:59 Hydromorphone HCl (Dilaudid) 2 mg Q4H PRN IV Severe Pain (Pain Scale 7-10) 10/30/16 21:15 11/06/16 21:14 11/01/16 17:28 Labetalol HCl (Normodyne) 200 mg Q12HR ORAL 10/31/16 09:00 11/30/16 08:59 11/01/16 08:42 Levetiracetam (Keppra) 1,000 mg Q12HR ORAL 10/30/16 23:30 11/29/16 23:29 11/01/16 08:41 Lisinopril (Prinivil) 20 mg DAILY ORAL 11/02/16 09:00 12/02/16 08:59 Lorazepam (Ativan 2mg/ml 1ml) 0.5 mg Q4H PRN IV For Anxiety 10/30/16 21:15 11/06/16 21:14 Mineral Oil (Fleet's Mineral Oil Enema) 133 ml ONCE ONCE RECTAL 11/01/16 23:00 11/01/16 23:01 Ondansetron HCl (Zofran) 4 mg Q6H PRN IVP Nausea & Vomiting 10/30/16 21:15 11/29/16 21:14 Pantoprazole (Protonix) 40 mg DAILY ORAL 10/31/16 09:00 11/30/16 08:59 11/01/16 08:38 Polyethylene Glycol (Miralax) 17 gm HSPRN PRN ORAL Constipation 10/30/16 21:15 11/29/16 21:14 11/01/16 17:29 Sodium Chloride 1,000 ml @ 500 mls/hr Q2H PRN IVLG sbp<90 during hd 11/01/16 06:00 11/01/16 23:59 Vancomycin HCl (Vanco rx to dose) 1 ea DAILY PRN MISC Per rx protocol 10/31/16 13:00 11/30/16 12:59 Zolpidem Tartrate (Ambien) 5 mg HSPRN PRN ORAL Insomnia 10/30/16 21:15 11/06/16 21:14 Assessment/Plan Status: stable, unchanged Assessment/Plan Anxiety d/o 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 Nov 01, 2016 20:20
[2016-11-01] MEDS: Epogen (for ESRD on dialysis) SUBQ SCH (21:17)
[2016-11-02] VITALS (13 sets, daily range): BP systolic 152–176; BP diastolic 81–108
[2016-11-02] MEDS: DiphenhydrAMINE 50mg/ml Inj IVP PRN ×3 (05:18→18:34)
[2016-11-02] MEDS: Depakote 500mg tab ORAL SCH ×3 (09:00→21:11)
[2016-11-02] MEDS: Lisinopril 20mg tab ORAL SCH ×2 (09:00→14:04)
--- NOTE | 2016-11-02 09:02 | Consultation ---
DATE OF CONSULTATION: 11/01/2016 CARDIOLOGY CONSULTATION REFERRING PHYSICIAN: Kaylah Hayward M.D. REASON FOR REFERRAL: Tachycardia. History of Present Illness: This is a very unfortunate young gentleman with history of multiple medical problems as delineated below. The patient claims that during dialysis yesterday had a rapid heart rate with heart rate in the excess of 160 that lasted for approximately one hour during the dialysis session. Unfortunately, I am not able to find any rhythm strips to review. I am not sure how accurate that is. Nevertheless, I reviewed the emergency room physician's notation indicated the patient was brought in by EMS with substernal nonradiating chest pain during dialysis and he admitted [facility] through dialysis and developed chest pain. No associated shortness of breath. He told the emergency room physician that the pain was different from what he had one or two weeks ago, although he told me that this is the same pain that he had on prior occasion and the main issue was the fact that he was tachycardic, rapid heart rate of 163, but none of that is indicated in the emergency room physician's notation. He does have shortness of breath that he thinks is worse, he has had to use some inhalers, and he really does not ambulate much to be of any help. 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 Grider, but he apparently never did. Past Medical History: Positive for history of chest pains, history of chronic pericarditis, status post nephrectomy, history of hypertension, history of prior CVA, chronic recurrent chest pains multifactorial, nonischemic likely, has a history of seizure disorder, secondary hypertension, reflux esophagitis, hiatal hernia, gastric erosion, gastric ulcer, chronic gastritis, drug-seeking behavior, impaired gait mobility, chronic renal insufficiency, left-sided hemiplegia, anemia, E. coli bacteremia, end-stage renal disease, hypertensive kidney disease, coagulopathy, and pancytopenia. Allergies: He is reportedly allergic to many medications, heparin, Ketoralac, morphine, nitroglycerin, Dilantin, promethazine, and [place]. Review of Systems: Gastrointestinal: He has had some nausea. Genitourinary: He does not make urine. Pulmonary: Positive for coughing. Constitutional: Low-grade fevers are noted. PHYSICAL EXAMINATION: GENERAL: Shows to be a young gentleman, in no respiratory distress. NECK: Supple. No jugular venous distention. LUNGS: Appear to be clear to auscultation and percussion. Cardiac: Regular rate and rhythm. No heaves, thrills, gallops, or rubs noted. ABDOMEN: Soft and nontender. Positive bowel sounds. EXTREMITIES: There is no edema. Left-sided weakness is noted. Laboratory And Diagnostic Data: White count 3.9, hemoglobin 8.9, and platelet count of 97,000. Hemoglobin is about the same throughout the past month. Platelets also been about the same and at times lower. Sodium 141, potassium 4.3, chloride 104, bicarbonate 23, BUN 27, creatinine 4.9, and glucose of 77. Liver function tests normal. Alkaline phosphatase is 3700. Troponin one set was negative at less than 0.3. ProBNP a few days ago was 2300. TSH of 2.2. Coagulations, INR 1.1 and PTT of 36. Toxicology screen negative. Imaging, chest x-ray showed chronic findings with left PermCath, left innominate vein stent in SVC, the stent exiting the right innominate vein, pacemaker is present, lungs are clear. Telemetry data shows borderline, if any, sinus tachycardia. EKG shows normal sinus rhythm, no ST or T-wave abnormalities of any significant degree. Venous duplex shows no thrombus. ASSESSMENT AND PLAN: 1. Chest pain with history of the same. 2. History of chronic pericarditis. 3. End-stage renal disease, on hemodialysis. 4. Status post nephrectomy. 5. History of cerebrovascular accident. 6. abnormalities. 7. Anemia of chronic disease. 8. Hypertensive disease. 9. Seizure disorder. 10. History of gastrointestinal bleed. Dr. Hayward, this patient was seen in cardiac consultation. The patient's electrocardiogram is unremarkable. Troponins are negative, it is not ischemic in origin. He should be placed back on his usual antihypertensive medications and continue receiving dialysis. I see no reason to further workup. There is notation from Dr. Gaines's note that the patient has had normal coronary angiogram as part of his extensive workup that he has had previously. Therefore, no further workup will be recommended at this time. Jero Oneal M.D. DR: JANAE JOB#: [id number] CC:
[2016-11-02] MEDS: Fleet's Mineral Oil Enema RECTAL ONE ×2 (09:30→09:46)
[2016-11-02] MEDS: Dyna-Hex 2% Top Sol 2oz TOPIC SCH (09:43)
[2016-11-02 10:36] LABS: MEAN CORPUSCULAR HEMOGLOBIN 29.3 PG (27.0-31.0); MEAN CORPUSCULAR VOLUME 94 FL (80-99); MEAN PLATELET VOLUME 7.1 FL (6.5-10.1); PLATELET COUNT 88 K/UL (150-450); RED BLOOD COUNT 3.11 M/UL (4.70-6.10); RED CELL DISTRIBUTION WIDTH 19.2 % (11.6-14.8); WHITE BLOOD COUNT 3.6 K/UL (4.8-10.8)
[2016-11-02 10:58] LABS: CALCIUM 8.4 mg/dL (8.6-10.2); CREATININE 5.4 mg/dL (0.7-1.2); GLOMERULAR FILTRATION RATE 15.2 mL/min (>60); POTASSIUM 4.7 mEQ/L (3.4-4.9)
[2016-11-02 10:59] LABS: PROTHROMBIN TIME 10.4 SEC (9.30-11.50)
[2016-11-02 11:19] LABS: BAND NEUTROPHILS % (MANUAL) 0 % (0-8); BASOPHILS % (MANUAL) 0 % (0-2); EOSINOPHILS % (MANUAL) 10 % (0-3); LYMPHOCYTES % (MANUAL) 18 % (20-45); NEUTROPHILS % (MANUAL) 67 % (45-75); PLATELET ESTIMATE DECREASED; PLATELET MORPHOLOGY NORMAL; TOTAL CELLS COUNTED 100
[2016-11-02 11:20] LABS: ANISOCYTOSIS 1+; HYPOCHROMASIA 1+; TEAR DROP CELLS 1+
--- NOTE | 2016-11-02 12:14 | Anethesia Preoperative Eval ---
Anesthesia Pre-op PMH/ROS General Date of Evaluation: Nov 02, 2016 Time of Evaluation: 12:10 Anesthesiologist: Linnette ASA Score: ASA 4 Mallampati Score Class I : Soft palate, uvula, fauces, pillars visible Class II: Soft palate, uvula, fauces visible Class III: Soft palate, base of uvula visible Class IV: Only hard plate visible Mallampati Classification: Class II Surgeon: Lori Diagnosis: Abdominal pain Surgical Procedure: Colonoscopy Anesthesia History: none Allergies: Coded Allergies: KETOROLAC (Verified Allergy, Mild, SOB, 06/28/11) METOCLOPRAMIDE (Verified Allergy, Mild, RASH, 06/28/11) NITROGLYCERIN (Verified Allergy, Mild, SEIZURES, 06/28/11) PENICILLINS (Verified Allergy, Mild, SOB, 06/28/11) PHENYTOIN (Verified Allergy, Mild, RASH, 06/28/11) ACETAMINOPHEN (Verified Allergy, Unknown, Shortness of Breath, 08/31/16) swelling throat, difficulty breathing CODEINE (Unverified Allergy, Unknown, 10/16/16) HEPARIN (Verified Allergy, Unknown, Shortness of Breath, 08/28/16) HYDRALAZINE (Verified Allergy, Unknown, 08/28/16) HYDROCODONE (Verified Allergy, Unknown, Shortness of Breath, 08/31/16) swelling throat, difficulty breathing IBUPROFEN (Verified Allergy, Unknown, RASH, 06/28/11) IODINE (Verified Allergy, Unknown, SHOCK, 06/28/11) POLYSTYRENE SULFONATE (Verified Allergy, Unknown, RASH, 06/28/11) PROMETHAZINE (Verified Allergy, Unknown, RASH, 06/28/11) Past Medical History Cardiovascular: Reports: HTN, CAD, Denies: OH, valve dz, arrhythmia, other Pulmonary: Denies: asthma, COPD, LUISA, other Gastrointestinal/Genitourinary: Reports: GERD, ESRD, Denies: CRI, other Neurologic/Psychiatric: Reports: CVA - hemyparesis, other - seizures, Denies: dementia, depression/anxiety, TIA Endocrine: Denies: DM, hypothyroidism, steroids, other HEENT: Denies: cataract (L), cataract (R), glaucoma, [place] P[place] (L), [place] PASS (R), other Hematology/Immune: Reports: anemia - severe anemia Musculoskeletal/Integumentary: Reports: DJD, Denies: OA, RA, DDD, edema, other Other: other - malnourished PMH Narrative: as above PSxH Narrative: see H&P Anesthesia Pre-op Phys. Exam Physician Exam Last Vital Signs Date Time Temp Pulse Resp B/P (MAP) Pulse Ox O2 Delivery O2 Flow Rate FiO2 11/02/16 11:33 96.5 90 20 167/99 100 Room Air Constitutional: NAD Neurologic: other - hemiparesis Cardiovascular: RRR, no M/R/G Respiratory: CTA Gastrointestinal: S/NT/ND Airway Exam Mallampati Score: Class III MO: limited Neck: stiff ROM: limited Teeth: missing Dentures: no upper, no lower Anesthesia Pre-op A/P Labs Hematology Test 11/02/16 10:12 White Blood Count 3.6 K/UL (4.8-10.8) L Red Blood Count 3.11 M/UL (4.70-6.10) L Hemoglobin 9.1 G/DL (14.2-18.0) L Hematocrit 29.4 % (42.0-52.0) L Mean Corpuscular Volume 94 FL (80-99) Mean Corpuscular Hemoglobin 29.3 PG (27.0-31.0) Mean Corpuscular Hemoglobin Concent 31.0 G/DL (32.0-36.0) L Red Cell Distribution Width 19.2 % (11.6-14.8) H Platelet Count 88 K/UL (150-450) L Mean Platelet Volume 7.1 FL (6.5-10.1) Neutrophils (%) (Auto) % (45.0-75.0) Lymphocytes (%) (Auto) % (20.0-45.0) Monocytes (%) (Auto) % (1.0-10.0) Eosinophils (%) (Auto) % (0.0-3.0) Basophils (%) (Auto) % (0.0-2.0) Differential Total Cells Counted 100 Neutrophils % (Manual) 67 % (45-75) Lymphocytes % (Manual) 18 % (20-45) L Monocytes % (Manual) 5 % (1-10) Eosinophils % (Manual) 10 % (0-3) H Basophils % (Manual) 0 % (0-2) Band Neutrophils 0 % (0-8) Platelet Estimate Decreased L Platelet Morphology Normal Hypochromasia 1+ Anisocytosis 1+ Tear Drop Cells 1+ Coagulation Test 11/02/16 10:12 Prothrombin Time 10.4 SEC (9.30-11.50) Prothromb Time International Ratio 1.0 (0.9-1.1) Activated Partial Thromboplast Time 31 SEC (23-33) Chemistry Test 11/02/16 10:12 Sodium Level 139 mEQ/L (135-145) Potassium Level 4.7 mEQ/L (3.4-4.9) Chloride Level 100 mEQ/L (98-107) Carbon Dioxide Level 22 mEQ/L (20-30) Anion Gap 17 (5-15) H Blood Urea Nitrogen 32 mg/dL (7-23) H Creatinine 5.4 mg/dL (0.7-1.2) H Estimat Glomerular Filtration Rate 15.2 mL/min (>60) Glucose Level 81 mg/dL (74-106) Calcium Level 8.4 mg/dL (8.6-10.2) L Risk Assessment & Plan Assessment: ASA 4 Plan: MAC Status Change Before Surgery: No Pre-Antibiotics Drug: none MORENO SHELTON M.D. Nov 02, 2016 12:14
[2016-11-02] MEDS ORDERED: Midazolam 2mg/2ml Inj ONE (12:45)
[2016-11-02] MEDS ORDERED: Tubing IV Extension IV ONE (12:45)
[2016-11-02] MEDS ORDERED: fentaNYL 100 mcg/2 mL IV ONE (12:45)
[2016-11-02] MEDS ORDERED: Propofol 200mg/20ml IV ONE (12:45)
[2016-11-02] MEDS ORDERED: NS 500ML IV ONE (12:45)
--- NOTE | 2016-11-02 12:45 | Pre-Procedure Note/Attestation ---
Pre-Procedure Note/Attestation Complete Prior to Procedure Planned Procedure: not applicable Procedure Narrative: colonoscopy Indications for Procedure Pre-Operative Diagnosis: anemia, colitis Attestation I attest that I discussed the nature of the procedure; its benefits; risks and complications; and alternatives (and the risks and benefits of such alternatives ), prior to the procedure, with the patient (or the patient's legal outside sales representative insurance). I attest that, if there was a reasonable possibility of needing a blood transfusion, the patient (or the patient's legal outside sales representative insurance) was given the [facility] standardized written summary, pursuant to the Irvin [place] Blood Safety Act ([place] Health and Safety Code # 1645, as amended). I attest that I re-evaluated the patient just prior to the surgery and that there has been no change in the patient's H&P, except as documented below: JEN VALDEZ Nov 02, 2016 12:45
--- NOTE | 2016-11-02 12:53 | Endoscopy Procedure Note ---
Endoscopy Procedure Note Indication for Procedure: colitis, anemia Procedures Performed: flexible sigmoidoscopy Operative Findings/Diagnosis: poor prep Specimen: yes Pt Tolerated Procedure Well: Yes Estimated Blood Loss: none Anesthesiologist: george Anesthesia: MAC Implant(s) used?: No 50 yrs or older w/o bx or poly: Not Applicable 10yrs. F/U not recommended: Not Applicable JEN VALDEZ Nov 02, 2016 12:53
--- NOTE | 2016-11-02 13:08 | Immediate Post-Op Evaluation ---
Immediate Post-Op Evalulation Immediate Post-Op Evalulation Procedure: Attempted colonoscopy Date of Evaluation: Nov 02, 2016 Time of Evaluation: 13:07 IV Fluids: 200 Blood Products: none Estimated Blood Loss: none Urinary Output: none Blood Pressure Systolic: 158 Blood Pressure Diastolic: 92 Pulse Rate: 97 Respiratory Rate: 22 O2 Sat by Pulse Oximetry: 98 Temperature (Fahrenheit): 98.2 Pain Score (1-10): 1 Nausea: No Vomiting: No Complications none Patient Status: awake, patent, none Hydration Status: adequate MORENO SHELTON M.D. Nov 02, 2016 13:08
--- NOTE | 2016-11-02 13:10 | 48 Hour Post Anesthesia Eval ---
Post Anesthesia Evaluation Procedure: Attempted colonoscopy Date of Evaluation: Nov 02, 2016 Time of Evaluation: 14:04 Blood Pressure Systolic: 160 0: 78 Pulse Rate: 96 Respiratory Rate: 22 Temperature (Fahrenheit): 97.9 O2 Sat by Pulse Oximetry: 98 Airway: patent Nausea: No Vomiting: No Pain Intensity: 1 Hydration Status: adequate Cardiopulmonary Status: stable Mental Status/LOC: patient returned to baseline Follow-up Care/Observations: n/a Post-Anesthesia Complications: none Follow-up care needed: N/A MORENO SHELTON M.D. Nov 02, 2016 13:10
--- NOTE | 2016-11-02 13:18 | Pulmonology Progress Note ---
Assessment/Plan Problems: (1) Chest pain (2) Hypokalemia (3) Uncontrolled hypertension (4) ESRF (end stage renal failure) (5) Left hemiplegia (6) Pericarditis (7) Severe malnutrition (8) Anemia Assessment/Plan f/u colonoscopy results symptomatic treatment HD by nephrology cariology to see all notes reviewed and appreciated. check electrolytes Subjective ROS Limited/Unobtainable: No Constitutional: Reports: no symptoms HEENT: Repors: no symptoms Respiratory: Reports: no symptoms Allergies: Coded Allergies: KETOROLAC (Verified Allergy, Mild, SOB, 06/28/11) METOCLOPRAMIDE (Verified Allergy, Mild, RASH, 06/28/11) NITROGLYCERIN (Verified Allergy, Mild, SEIZURES, 06/28/11) PENICILLINS (Verified Allergy, Mild, SOB, 06/28/11) PHENYTOIN (Verified Allergy, Mild, RASH, 06/28/11) ACETAMINOPHEN (Verified Allergy, Unknown, Shortness of Breath, 08/31/16) swelling throat, difficulty breathing CODEINE (Unverified Allergy, Unknown, 10/16/16) HEPARIN (Verified Allergy, Unknown, Shortness of Breath, 08/28/16) HYDRALAZINE (Verified Allergy, Unknown, 08/28/16) HYDROCODONE (Verified Allergy, Unknown, Shortness of Breath, 08/31/16) swelling throat, difficulty breathing IBUPROFEN (Verified Allergy, Unknown, RASH, 06/28/11) IODINE (Verified Allergy, Unknown, SHOCK, 06/28/11) POLYSTYRENE SULFONATE (Verified Allergy, Unknown, RASH, 06/28/11) PROMETHAZINE (Verified Allergy, Unknown, RASH, 06/28/11) Objective Last 24 Hour Vital Signs Date Time Temp Pulse Resp B/P (MAP) Pulse Ox O2 Delivery O2 Flow Rate FiO2 11/02/16 13:10 96 22 98 11/02/16 13:09 97 19 158/92 100 Nasal Cannula 3.0 11/02/16 13:08 97 22 98 11/02/16 13:04 102 19 152/94 100 Nasal Cannula 3.0 11/02/16 12:59 99.6 100 19 159/89 100 Nasal Cannula 3.0 11/02/16 11:33 96.5 90 20 167/99 100 Room Air 11/02/16 09:00 160/81 11/02/16 09:00 89 160/81 11/02/16 08:13 96.3 89 20 160/81 100 Room Air 11/02/16 04:25 97.7 83 20 176/108 100 Room Air 11/02/16 04:00 83 11/02/16 00:36 98.2 89 22 155/88 98 Room Air 11/02/16 00:00 88 11/01/16 21:11 87 165/105 11/01/16 20:10 98.1 87 20 166/105 100 Room Air 11/01/16 20:00 90 11/01/16 16:00 86 11/01/16 15:38 97.7 88 18 152/97 100 Room Air 11/01/16 15:12 107 Intake and Output 11/02/16 11/03/16 19:00 07:00 Intake Total 200 ml Balance 200 ml IV Total 200 ml General Appearance: WD/WN HEENT: normocephalic, atraumatic Respiratory/Chest: chest wall non-tender, lungs clear, normal breath sounds Cardiovascular: normal peripheral pulses, normal rate Abdomen: normal bowel sounds, no organomegaly Microbiology Date/Time Source Procedure Growth Status 10/30/16 21:30 Nasal Nares MRSA Culture - Final NO METHICILLIN RESISTANT STAPH AUREUS... Complete Laboratory Tests 11/02/16 10:12: White Blood Count 3.6L, Red Blood Count 3.11L, Hemoglobin 9.1L, Hematocrit 29.4L , Mean Corpuscular Volume 94, Mean Corpuscular Hemoglobin 29.3, Mean Corpuscular Hemoglobin Concent 31.0L, Red Cell Distribution Width 19.2H, Platelet Count 88L, Mean Platelet Volume 7.1, Neutrophils (%) (Auto) , Lymphocytes (%) (Auto) , Monocytes (%) (Auto) , Eosinophils (%) (Auto) , Basophils (%) (Auto) , Differential Total Cells Counted 100, Neutrophils % ( Manual) 67, Lymphocytes % (Manual) 18L, Monocytes % (Manual) 5, Eosinophils % ( Manual) 10H, Basophils % (Manual) 0, Band Neutrophils 0, Platelet Estimate DecreasedL, Platelet Morphology Normal, Hypochromasia 1+, Anisocytosis 1+, Tear Drop Cells 1+, Prothrombin Time 10.4, Prothromb Time International Ratio 1.0, Activated Partial Thromboplast Time 31, Sodium Level 139, Potassium Level 4.7, Chloride Level 100, Carbon Dioxide Level 22, Anion Gap 17H, Blood Urea Nitrogen 32H, Creatinine 5.4H, Estimat Glomerular Filtration Rate 15.2, Glucose Level 81 , Calcium Level 8.4L, Random Vancomycin Level 20.3 Current Medications Medications (Trade) Dose Ordered Sig/Anant Route PRN Reason Start Time Stop Time Status Last Admin Dose Admin Al Hydroxide/Mg Hydroxide (Mylanta II) 30 ml Q6H PRN ORAL dyspepsia 10/30/16 21:15 11/29/16 21:14 Ceftriaxone Sodium 1 gm/ Dextrose 55 ml @ 110 mls/hr Q24H IVPB 10/31/16 15:00 11/07/16 14:59 11/01/16 16:03 Chlorhexidine Gluconate (Yessi-Hex 2%) 1 applic DAILY TOPIC 11/01/16 09:00 12/01/16 08:59 11/02/16 09:43 Clonidine HCl (Catapres TTS-2) 1 patch QWEEK TDERMAL 10/31/16 15:00 11/30/16 14:59 10/31/16 16:42 Dextrose (Dextrose 50%) STAT PRN IV Hypoglycemia 10/30/16 21:15 11/29/16 21:14 Diphenhydramine HCl (Benadryl) 25 mg Q6H PRN IVP Itching 10/31/16 17:00 11/30/16 16:59 11/02/16 11:52 Divalproex Sodium (Depakote) 500 mg EVERY 12 HOURS ORAL 10/31/16 09:00 11/30/16 08:59 11/01/16 21:10 Epoetin Rajinder (Procrit (for ESRD on dialysis)) 5,000 units SUN-SUN-SUN SUBQ 11/01/16 21:00 12/01/16 20:59 11/01/16 21:17 Hydromorphone HCl (Dilaudid) 2 mg Q4H PRN IV Severe Pain (Pain Scale 7-10) 10/30/16 21:15 11/06/16 21:14 11/02/16 09:46 Labetalol HCl (Normodyne) 200 mg Q12HR ORAL 10/31/16 09:00 11/30/16 08:59 11/01/16 21:11 Levetiracetam (Keppra) 1,000 mg Q12HR ORAL 10/30/16 23:30 11/29/16 23:29 11/01/16 21:11 Lisinopril (Prinivil) 20 mg DAILY ORAL 11/02/16 09:00 12/02/16 08:59 Lorazepam (Ativan 2mg/ml 1ml) 0.5 mg Q4H PRN IV For Anxiety 10/30/16 21:15 11/06/16 21:14 Mirtazapine (Remeron) 15 mg BEDTIME ORAL 11/01/16 21:00 12/01/16 20:59 11/01/16 21:12 Ondansetron HCl (Zofran) 4 mg Q6H PRN IVP Nausea & Vomiting 10/30/16 21:15 11/29/16 21:14 Pantoprazole (Protonix) 40 mg DAILY ORAL 10/31/16 09:00 11/30/16 08:59 11/01/16 08:38 Polyethylene Glycol (Miralax) 17 gm HSPRN PRN ORAL Constipation 10/30/16 21:15 11/29/16 21:14 11/01/16 17:29 Vancomycin HCl (Vanco rx to dose) 1 ea DAILY PRN MISC Per rx protocol 10/31/16 13:00 11/30/16 12:59 Vancomycin HCl 1 gm/Dextrose 275 ml @ 183.708 mls/hr ONCE ONCE IVPB 11/03/16 05:00 11/03/16 06:29 Zolpidem Tartrate (Ambien) 5 mg HSPRN PRN ORAL Insomnia 10/30/16 21:15 11/06/16 21:14 BETHEL PACK Nov 02, 2016 13:18
[2016-11-02] MEDS: cefTRIAXone 1 GM in D5W 55 ML IVPB SCH (14:00)
--- NOTE | 2016-11-02 15:41 | Nephrology Progress Note ---
Assessment/Plan Plan HD tomorrow. Non compliant with diet and fluids - refusing to.. HD tomorrow Subjective Subjective No new c/o. Consuming Junk Food from outside without supervision! Objective Objective Last 24 Hour Vital Signs Date Time Temp Pulse Resp B/P (MAP) Pulse Ox O2 Delivery O2 Flow Rate FiO2 11/02/16 15:30 98.4 92 20 168/99 100 Room Air 11/02/16 14:04 159/95 11/02/16 14:04 98 159/95 11/02/16 13:30 98.9 98 18 159/95 100 Nasal Cannula 3.0 11/02/16 13:15 95 21 156/92 100 Nasal Cannula 3.0 11/02/16 13:10 96 22 98 11/02/16 13:09 97 19 158/92 100 Nasal Cannula 3.0 11/02/16 13:08 97 22 98 11/02/16 13:04 102 19 152/94 100 Nasal Cannula 3.0 11/02/16 12:59 99.6 100 19 159/89 100 Nasal Cannula 3.0 11/02/16 12:00 94 11/02/16 11:33 96.5 90 20 167/99 100 Room Air 11/02/16 09:00 160/81 11/02/16 09:00 89 160/81 11/02/16 08:13 96.3 89 20 160/81 100 Room Air 11/02/16 08:00 83 11/02/16 04:25 97.7 83 20 176/108 100 Room Air 11/02/16 04:00 83 11/02/16 00:36 98.2 89 22 155/88 98 Room Air 11/02/16 00:00 88 11/01/16 21:11 87 165/105 11/01/16 20:10 98.1 87 20 166/105 100 Room Air 11/01/16 20:00 90 11/01/16 16:00 86 Intake and Output 11/02/16 11/03/16 19:00 07:00 Intake Total 200 ml Balance 200 ml IV Total 200 ml Laboratory Tests 11/02/16 10:12: White Blood Count 3.6L, Red Blood Count 3.11L, Hemoglobin 9.1L, Hematocrit 29.4L , Mean Corpuscular Volume 94, Mean Corpuscular Hemoglobin 29.3, Mean Corpuscular Hemoglobin Concent 31.0L, Red Cell Distribution Width 19.2H, Platelet Count 88L, Mean Platelet Volume 7.1, Neutrophils (%) (Auto) , Lymphocytes (%) (Auto) , Monocytes (%) (Auto) , Eosinophils (%) (Auto) , Basophils (%) (Auto) , Differential Total Cells Counted 100, Neutrophils % ( Manual) 67, Lymphocytes % (Manual) 18L, Monocytes % (Manual) 5, Eosinophils % ( Manual) 10H, Basophils % (Manual) 0, Band Neutrophils 0, Platelet Estimate DecreasedL, Platelet Morphology Normal, Hypochromasia 1+, Anisocytosis 1+, Tear Drop Cells 1+, Prothrombin Time 10.4, Prothromb Time International Ratio 1.0, Activated Partial Thromboplast Time 31, Sodium Level 139, Potassium Level 4.7, Chloride Level 100, Carbon Dioxide Level 22, Anion Gap 17H, Blood Urea Nitrogen 32H, Creatinine 5.4H, Estimat Glomerular Filtration Rate 15.2, Glucose Level 81 , Calcium Level 8.4L, Random Vancomycin Level 20.3 Height (Feet): 5 Height (Inches): 10.00 Weight (Pounds): 125 Objective Cachectic. Muscle dystrophy. Mild exophthalmos. CV rr Lungs CTA Abd SNT. BS + E No CCE. L arm carpopedal deformity. ARNIE SWEET Nov 02, 2016 15:41
--- NOTE | 2016-11-02 18:29 | General Progress Note ---
Assessment/Plan Status: stable, progressing Subjective Constitutional: Reports: malaise, weakness Gastrointestinal/Abdominal: Reports: poor fluid intake - slept better Neurologic/Psychiatric: Reports: anxiety, depressed, emotional problems Allergies: Coded Allergies: KETOROLAC (Verified Allergy, Mild, SOB, 06/28/11) METOCLOPRAMIDE (Verified Allergy, Mild, RASH, 06/28/11) NITROGLYCERIN (Verified Allergy, Mild, SEIZURES, 06/28/11) PENICILLINS (Verified Allergy, Mild, SOB, 06/28/11) PHENYTOIN (Verified Allergy, Mild, RASH, 06/28/11) ACETAMINOPHEN (Verified Allergy, Unknown, Shortness of Breath, 08/31/16) swelling throat, difficulty breathing CODEINE (Unverified Allergy, Unknown, 10/16/16) HEPARIN (Verified Allergy, Unknown, Shortness of Breath, 08/28/16) HYDRALAZINE (Verified Allergy, Unknown, 08/28/16) HYDROCODONE (Verified Allergy, Unknown, Shortness of Breath, 08/31/16) swelling throat, difficulty breathing IBUPROFEN (Verified Allergy, Unknown, RASH, 06/28/11) IODINE (Verified Allergy, Unknown, SHOCK, 06/28/11) POLYSTYRENE SULFONATE (Verified Allergy, Unknown, RASH, 06/28/11) PROMETHAZINE (Verified Allergy, Unknown, RASH, 06/28/11) Objective Last 24 Hour Vital Signs Date Time Temp Pulse Resp B/P (MAP) Pulse Ox O2 Delivery O2 Flow Rate FiO2 11/02/16 18:00 99 11/02/16 16:00 100 153/97 Room Air 11/02/16 15:30 98.4 92 20 168/99 100 Room Air 11/02/16 14:04 159/95 11/02/16 14:04 98 159/95 11/02/16 13:30 98.9 98 18 159/95 100 Nasal Cannula 3.0 11/02/16 13:15 95 21 156/92 100 Nasal Cannula 3.0 11/02/16 13:10 96 22 98 11/02/16 13:09 97 19 158/92 100 Nasal Cannula 3.0 11/02/16 13:08 97 22 98 11/02/16 13:04 102 19 152/94 100 Nasal Cannula 3.0 11/02/16 12:59 99.6 100 19 159/89 100 Nasal Cannula 3.0 11/02/16 12:00 94 11/02/16 11:33 96.5 90 20 167/99 100 Room Air 11/02/16 09:00 160/81 11/02/16 09:00 89 160/81 11/02/16 08:13 96.3 89 20 160/81 100 Room Air 11/02/16 08:00 83 11/02/16 04:25 97.7 83 20 176/108 100 Room Air 11/02/16 04:00 83 11/02/16 00:36 98.2 89 22 155/88 98 Room Air 11/02/16 00:00 88 11/01/16 21:11 87 165/105 11/01/16 20:10 98.1 87 20 166/105 100 Room Air 11/01/16 20:00 90 Intake and Output 11/02/16 11/03/16 19:00 07:00 Intake Total 430 ml Balance 430 ml Intake Oral 120 ml IV Total 310 ml Laboratory Tests 11/02/16 10:12: White Blood Count 3.6L, Red Blood Count 3.11L, Hemoglobin 9.1L, Hematocrit 29.4L , Mean Corpuscular Volume 94, Mean Corpuscular Hemoglobin 29.3, Mean Corpuscular Hemoglobin Concent 31.0L, Red Cell Distribution Width 19.2H, Platelet Count 88L, Mean Platelet Volume 7.1, Neutrophils (%) (Auto) , Lymphocytes (%) (Auto) , Monocytes (%) (Auto) , Eosinophils (%) (Auto) , Basophils (%) (Auto) , Differential Total Cells Counted 100, Neutrophils % ( Manual) 67, Lymphocytes % (Manual) 18L, Monocytes % (Manual) 5, Eosinophils % ( Manual) 10H, Basophils % (Manual) 0, Band Neutrophils 0, Platelet Estimate DecreasedL, Platelet Morphology Normal, Hypochromasia 1+, Anisocytosis 1+, Tear Drop Cells 1+, Prothrombin Time 10.4, Prothromb Time International Ratio 1.0, Activated Partial Thromboplast Time 31, Sodium Level 139, Potassium Level 4.7, Chloride Level 100, Carbon Dioxide Level 22, Anion Gap 17H, Blood Urea Nitrogen 32H, Creatinine 5.4H, Estimat Glomerular Filtration Rate 15.2, Glucose Level 81 , Calcium Level 8.4L, Random Vancomycin Level 20.3 Height (Feet): 5 Height (Inches): 10.00 Weight (Pounds): 125 General Appearance: no apparent distress, alert, cachetic Neurologic: alert, oriented x 3, responsive, depressed affect Phil Wilson M.D. Nov 02, 2016 18:29
--- NOTE | 2016-11-02 19:58 | Infectious Diseases Prog Note ---
Assessment/Plan Assessment/Plan Assessment/Plan A: The patient is a 30-year-old male with history of chronic pericarditis, etiology and the exact kind of management for this is not totally clear History of hypertension. Asthma. history of end-stage renal disease, on hemodialysis. PLAN: will continue the patient on IV Vancomycin and Rocephin d# 3 for now , upon DC pt may resume plan of AB rx followed by home health Monitor CBC Monitor BMP. will try to contact out side MDas to get more information re plan of AB Rx, ( pt still trying to get the primary MD who is managing Ab Rx ) Subjective Constitutional: Denies: no symptoms, fever, chills, fatigue, anorexia, drenching sweats, other Allergies: Coded Allergies: KETOROLAC (Verified Allergy, Mild, SOB, 06/28/11) METOCLOPRAMIDE (Verified Allergy, Mild, RASH, 06/28/11) NITROGLYCERIN (Verified Allergy, Mild, SEIZURES, 06/28/11) PENICILLINS (Verified Allergy, Mild, SOB, 06/28/11) PHENYTOIN (Verified Allergy, Mild, RASH, 06/28/11) ACETAMINOPHEN (Verified Allergy, Unknown, Shortness of Breath, 08/31/16) swelling throat, difficulty breathing CODEINE (Unverified Allergy, Unknown, 10/16/16) HEPARIN (Verified Allergy, Unknown, Shortness of Breath, 08/28/16) HYDRALAZINE (Verified Allergy, Unknown, 08/28/16) HYDROCODONE (Verified Allergy, Unknown, Shortness of Breath, 08/31/16) swelling throat, difficulty breathing IBUPROFEN (Verified Allergy, Unknown, RASH, 06/28/11) IODINE (Verified Allergy, Unknown, SHOCK, 06/28/11) POLYSTYRENE SULFONATE (Verified Allergy, Unknown, RASH, 06/28/11) PROMETHAZINE (Verified Allergy, Unknown, RASH, 06/28/11) Objective Vital Signs Last 24 Hour Vital Signs Date Time Temp Pulse Resp B/P (MAP) Pulse Ox O2 Delivery O2 Flow Rate FiO2 11/02/16 18:00 99 11/02/16 16:00 100 153/97 Room Air 11/02/16 15:30 98.4 92 20 168/99 100 Room Air 11/02/16 14:04 159/95 11/02/16 14:04 98 159/95 11/02/16 13:30 98.9 98 18 159/95 100 Nasal Cannula 3.0 11/02/16 13:15 95 21 156/92 100 Nasal Cannula 3.0 11/02/16 13:10 96 22 98 11/02/16 13:09 97 19 158/92 100 Nasal Cannula 3.0 11/02/16 13:08 97 22 98 11/02/16 13:04 102 19 152/94 100 Nasal Cannula 3.0 11/02/16 12:59 99.6 100 19 159/89 100 Nasal Cannula 3.0 11/02/16 12:00 94 11/02/16 11:33 96.5 90 20 167/99 100 Room Air 11/02/16 09:00 160/81 11/02/16 09:00 89 160/81 11/02/16 08:13 96.3 89 20 160/81 100 Room Air 11/02/16 08:00 83 11/02/16 04:25 97.7 83 20 176/108 100 Room Air 11/02/16 04:00 83 11/02/16 00:36 98.2 89 22 155/88 98 Room Air 11/02/16 00:00 88 11/01/16 21:11 87 165/105 11/01/16 20:10 98.1 87 20 166/105 100 Room Air 11/01/16 20:00 90 Height (Feet): 5 Height (Inches): 10.00 Weight (Pounds): 125 HEENT: atraumatic Respiratory/Chest: normal breath sounds Cardiovascular: regular rhythm Abdomen: soft, non tender Microbiology Date/Time Source Procedure Growth Status 10/30/16 21:30 Nasal Nares MRSA Culture - Final NO METHICILLIN RESISTANT STAPH AUREUS... Complete Laboratory Tests Test 11/02/16 10:12 White Blood Count 3.6 K/UL (4.8-10.8) L Red Blood Count 3.11 M/UL (4.70-6.10) L Hemoglobin 9.1 G/DL (14.2-18.0) L Hematocrit 29.4 % (42.0-52.0) L Mean Corpuscular Volume 94 FL (80-99) Mean Corpuscular Hemoglobin 29.3 PG (27.0-31.0) Mean Corpuscular Hemoglobin Concent 31.0 G/DL (32.0-36.0) L Red Cell Distribution Width 19.2 % (11.6-14.8) H Platelet Count 88 K/UL (150-450) L Mean Platelet Volume 7.1 FL (6.5-10.1) Neutrophils (%) (Auto) % (45.0-75.0) Lymphocytes (%) (Auto) % (20.0-45.0) Monocytes (%) (Auto) % (1.0-10.0) Eosinophils (%) (Auto) % (0.0-3.0) Basophils (%) (Auto) % (0.0-2.0) Differential Total Cells Counted 100 Neutrophils % (Manual) 67 % (45-75) Lymphocytes % (Manual) 18 % (20-45) L Monocytes % (Manual) 5 % (1-10) Eosinophils % (Manual) 10 % (0-3) H Basophils % (Manual) 0 % (0-2) Band Neutrophils 0 % (0-8) Platelet Estimate Decreased L Platelet Morphology Normal Hypochromasia 1+ Anisocytosis 1+ Tear Drop Cells 1+ Prothrombin Time 10.4 SEC (9.30-11.50) Prothromb Time International Ratio 1.0 (0.9-1.1) Activated Partial Thromboplast Time 31 SEC (23-33) Sodium Level 139 mEQ/L (135-145) Potassium Level 4.7 mEQ/L (3.4-4.9) Chloride Level 100 mEQ/L (98-107) Carbon Dioxide Level 22 mEQ/L (20-30) Anion Gap 17 (5-15) H Blood Urea Nitrogen 32 mg/dL (7-23) H Creatinine 5.4 mg/dL (0.7-1.2) H Estimat Glomerular Filtration Rate 15.2 mL/min (>60) Glucose Level 81 mg/dL (74-106) Calcium Level 8.4 mg/dL (8.6-10.2) L Random Vancomycin Level 20.3 ug/mL Current Medications Medications (Trade) Dose Ordered Sig/Anant Route PRN Reason Start Time Stop Time Status Last Admin Dose Admin Al Hydroxide/Mg Hydroxide (Mylanta II) 30 ml Q6H PRN ORAL dyspepsia 10/30/16 21:15 11/29/16 21:14 Ceftriaxone Sodium 1 gm/ Dextrose 55 ml @ 110 mls/hr Q24H IVPB 10/31/16 15:00 11/07/16 14:59 11/02/16 14:00 Chlorhexidine Gluconate (Yessi-Hex 2%) 1 applic DAILY TOPIC 11/01/16 09:00 12/01/16 08:59 11/02/16 09:43 Clonidine HCl (Catapres TTS-2) 1 patch QWEEK TDERMAL 10/31/16 15:00 11/30/16 14:59 10/31/16 16:42 Dextrose (Dextrose 50%) STAT PRN IV Hypoglycemia 10/30/16 21:15 11/29/16 21:14 Diphenhydramine HCl (Benadryl) 25 mg Q6H PRN IVP Itching 10/31/16 17:00 11/30/16 16:59 11/02/16 18:34 Divalproex Sodium (Depakote) 500 mg EVERY 12 HOURS ORAL 10/31/16 09:00 11/30/16 08:59 11/02/16 14:06 Epoetin Rajinder (Procrit (for ESRD on dialysis)) 5,000 units SUN-SUN-SUN SUBQ 11/01/16 21:00 12/01/16 20:59 11/01/16 21:17 Heparin Sodium (Porcine) (Heparin 5000 units/ml) 5,000 units POSTHD INJ 11/03/16 16:30 12/03/16 16:29 Heparin Sodium (Porcine) (Heparin Sod 1000 units/ml 10ml) 2,000 unit ONCE ONCE IV 11/03/16 16:30 11/03/16 16:31 Hydromorphone HCl (Dilaudid) 2 mg Q4H PRN IV Severe Pain (Pain Scale 7-10) 10/30/16 21:15 11/06/16 21:14 11/02/16 18:33 Labetalol HCl (Normodyne) 200 mg Q12HR ORAL 10/31/16 09:00 11/30/16 08:59 11/02/16 14:04 Levetiracetam (Keppra) 1,000 mg Q12HR ORAL 10/30/16 23:30 11/29/16 23:29 11/02/16 14:05 Lisinopril (Prinivil) 20 mg DAILY ORAL 11/02/16 09:00 12/02/16 08:59 11/02/16 14:04 Lorazepam (Ativan 2mg/ml 1ml) 0.5 mg Q4H PRN IV For Anxiety 10/30/16 21:15 11/06/16 21:14 Mirtazapine (Remeron) 15 mg BEDTIME ORAL 11/01/16 21:00 12/01/16 20:59 11/01/16 21:12 Ondansetron HCl (Zofran) 4 mg Q6H PRN IVP Nausea & Vomiting 10/30/16 21:15 11/29/16 21:14 Pantoprazole (Protonix) 40 mg DAILY ORAL 10/31/16 09:00 11/30/16 08:59 11/02/16 14:02 Polyethylene Glycol (Miralax) 17 gm HSPRN PRN ORAL Constipation 10/30/16 21:15 11/29/16 21:14 11/01/16 17:29 Vancomycin HCl (Vanco rx to dose) 1 ea DAILY PRN MISC Per rx protocol 10/31/16 13:00 11/30/16 12:59 Vancomycin HCl 1 gm/Dextrose 275 ml @ 183.708 mls/hr ONCE ONCE IVPB 11/03/16 05:00 11/03/16 06:29 Zolpidem Tartrate (Ambien) 5 mg HSPRN PRN ORAL Insomnia 10/30/16 21:15 11/06/16 21:14 FAITH WOOD M.D. Nov 02, 2016 19:58
--- NOTE | 2016-11-02 20:13 | Cardiology Progress Note ---
Assessment/Plan Assessment/Plan 1. Chest pain with history of the same. 2. History of chronic pericarditis. 3. End-stage renal disease, on hemodialysis. 4. Status post nephrectomy. 5. History of cerebrovascular accident. 6. Hypertensive disease. 7. Anemia of chronic disease. trop neg tele neg adjust med ttc pathc , clonidien po , labatolol Subjective Cardiovascular: Reports: chest pain, Denies: lightheadedness Respiratory: Reports: shortness of breath Gastrointestinal/Abdominal: Denies: abdominal pain Genitourinary: Reports: no symptoms Objective Last 24 Hour Vital Signs Date Time Temp Pulse Resp B/P (MAP) Pulse Ox O2 Delivery O2 Flow Rate FiO2 11/02/16 18:00 99 11/02/16 16:00 100 153/97 Room Air 11/02/16 15:30 98.4 92 20 168/99 100 Room Air 11/02/16 14:04 159/95 11/02/16 14:04 98 159/95 11/02/16 13:30 98.9 98 18 159/95 100 Nasal Cannula 3.0 11/02/16 13:15 95 21 156/92 100 Nasal Cannula 3.0 11/02/16 13:10 96 22 98 11/02/16 13:09 97 19 158/92 100 Nasal Cannula 3.0 11/02/16 13:08 97 22 98 11/02/16 13:04 102 19 152/94 100 Nasal Cannula 3.0 11/02/16 12:59 99.6 100 19 159/89 100 Nasal Cannula 3.0 11/02/16 12:00 94 11/02/16 11:33 96.5 90 20 167/99 100 Room Air 11/02/16 09:00 160/81 11/02/16 09:00 89 160/81 11/02/16 08:13 96.3 89 20 160/81 100 Room Air 11/02/16 08:00 83 11/02/16 04:25 97.7 83 20 176/108 100 Room Air 11/02/16 04:00 83 11/02/16 00:36 98.2 89 22 155/88 98 Room Air 11/02/16 00:00 88 11/01/16 21:11 87 165/105 General Appearance: no apparent distress, alert Neck: supple Cardiovascular: normal rate Respiratory/Chest: lungs clear, normal breath sounds Abdomen: normal bowel sounds, non tender, soft Extremities: no swelling Intake and Output 11/02/16 11/03/16 19:00 07:00 Intake Total 430 ml Balance 430 ml Intake Oral 120 ml IV Total 310 ml Laboratory Tests Test 11/02/16 10:12 White Blood Count 3.6 K/UL (4.8-10.8) L Red Blood Count 3.11 M/UL (4.70-6.10) L Hemoglobin 9.1 G/DL (14.2-18.0) L Hematocrit 29.4 % (42.0-52.0) L Mean Corpuscular Volume 94 FL (80-99) Mean Corpuscular Hemoglobin 29.3 PG (27.0-31.0) Mean Corpuscular Hemoglobin Concent 31.0 G/DL (32.0-36.0) L Red Cell Distribution Width 19.2 % (11.6-14.8) H Platelet Count 88 K/UL (150-450) L Mean Platelet Volume 7.1 FL (6.5-10.1) Neutrophils (%) (Auto) % (45.0-75.0) Lymphocytes (%) (Auto) % (20.0-45.0) Monocytes (%) (Auto) % (1.0-10.0) Eosinophils (%) (Auto) % (0.0-3.0) Basophils (%) (Auto) % (0.0-2.0) Differential Total Cells Counted 100 Neutrophils % (Manual) 67 % (45-75) Lymphocytes % (Manual) 18 % (20-45) L Monocytes % (Manual) 5 % (1-10) Eosinophils % (Manual) 10 % (0-3) H Basophils % (Manual) 0 % (0-2) Band Neutrophils 0 % (0-8) Platelet Estimate Decreased L Platelet Morphology Normal Hypochromasia 1+ Anisocytosis 1+ Tear Drop Cells 1+ Prothrombin Time 10.4 SEC (9.30-11.50) Prothromb Time International Ratio 1.0 (0.9-1.1) Activated Partial Thromboplast Time 31 SEC (23-33) Sodium Level 139 mEQ/L (135-145) Potassium Level 4.7 mEQ/L (3.4-4.9) Chloride Level 100 mEQ/L (98-107) Carbon Dioxide Level 22 mEQ/L (20-30) Anion Gap 17 (5-15) H Blood Urea Nitrogen 32 mg/dL (7-23) H Creatinine 5.4 mg/dL (0.7-1.2) H Estimat Glomerular Filtration Rate 15.2 mL/min (>60) Glucose Level 81 mg/dL (74-106) Calcium Level 8.4 mg/dL (8.6-10.2) L Random Vancomycin Level 20.3 ug/mL Microbiology Date/Time Source Procedure Growth Status 10/30/16 21:30 Nasal Nares MRSA Culture - Final NO METHICILLIN RESISTANT STAPH AUREUS... Complete SAMINA STERN Nov 02, 2016 20:13
[2016-11-03] VITALS (7 sets, daily range): BP systolic 141–189; BP diastolic 84–117
[2016-11-03] MEDS: DiphenhydrAMINE 50mg/ml Inj IVP PRN ×3 (00:44→17:01)
[2016-11-03] MEDS ORDERED: Vancomycin 1gm inj IVPB ONE (01:16)
[2016-11-03 04:55] LABS: MEAN CORPUSCULAR HEMOGLOBIN 30.5 PG (27.0-31.0); MEAN CORPUSCULAR HGB CONC 31.7 G/DL (32.0-36.0); MEAN CORPUSCULAR VOLUME 96 FL (80-99); MEAN PLATELET VOLUME 4.8 FL (6.5-10.1); PLATELET COUNT 66 K/UL (150-450); RED BLOOD COUNT 2.85 M/UL (4.70-6.10); RED CELL DISTRIBUTION WIDTH 20.2 % (11.6-14.8); WHITE BLOOD COUNT 3.6 K/UL (4.8-10.8)
[2016-11-03] MEDS ORDERED: Vancomycin 1gm/D5W 275ml IVPB ONE ×2 (05:00)
[2016-11-03 07:14] LABS: CALCIUM 8.6 mg/dL (8.6-10.2); CREATININE 6.3 mg/dL (0.7-1.2); GLOMERULAR FILTRATION RATE 12.7 mL/min (>60); PHOSPHORUS 4.8 mg/dL (2.5-4.8); POTASSIUM 5.1 mEQ/L (3.4-4.9)
--- NOTE | 2016-11-03 08:00 | Procedure Note ---
DATE OF PROCEDURE: 11/02/2016 SURGEON: Alec Sandoval M.D. REFERRING PHYSICIAN: Kaylah Hayward M.D. Procedure: Attempt colonoscopy obtained. It was done given poor prep. INDICATIONS: 1. Evidence of colitis on CT. 2. Anemia. The procedure, risks, benefits, and possible consequences, including hemorrhage, aspiration, perforation and infection, and alternative treatments, were explained to the patient/legal guardian by Dr. Alec Sandoval and the patient/legal guardian understood and accepted these risks. Description Of Procedure: After informed consent was obtained and the patient was adequately sedated, first rectal exam was performed, which was normal. Then, the scope was advanced from the rectum into the sigmoid colon. Solid stool was seen in the sigmoid colon. So, we could not advance the scope beyond that point. Prep was poor. Examination limited. No obvious bleeding was seen. Random biopsy from the rectosigmoid was obtained. Retroflexion of rectum was incomplete given there was stool seen in the rectum. SUMMARY OF FINDINGS: 1. Incomplete colonoscopy examination only of sigmoid colon, even that was very poor prep. 2. Status post random biopsy of rectosigmoid area. RECOMMENDATIONS: Follow up biopsies and treat accordingly. I want to thank Dr. Hayward for this kind referral. Alec Sandoval M.D. DR: BONI JOB#: [id number] CC: Kaylah Hayward M.D.; Fax#: [phone]
[2016-11-03 08:04] LABS: ANISOCYTOSIS 1+; BAND NEUTROPHILS % (MANUAL) 2 % (0-8); BASOPHILS % (MANUAL) 0 % (0-2); BLISTER CELL 1+; EOSINOPHILS % (MANUAL) 8 % (0-3); HYPOCHROMASIA 1+; LYMPHOCYTES % (MANUAL) 28 % (20-45); MACROCYTES 1+; NEUTROPHILS % (MANUAL) 58 % (45-75); NUCLEATED RED BLOOD CELLS 2 /100 WBC; PLATELET ESTIMATE DECREASED; PLATELET MORPHOLOGY NORMAL; SCHISTOCYTES 1+; TEAR DROP CELLS 1+; TOTAL CELLS COUNTED 100
[2016-11-03 08:05] LABS: OVALOCYTES 1+
[2016-11-03] MEDS: Dyna-Hex 2% Top Sol 2oz TOPIC SCH (08:09)
[2016-11-03] MEDS: Depakote 500mg tab ORAL SCH (08:10)
[2016-11-03] MEDS: Lisinopril 20mg tab ORAL SCH (09:00)
--- NOTE | 2016-11-03 10:11 | Nephrology Progress Note ---
Assessment/Plan Plan HD tomorrow. Non compliant with diet and fluids - refusing to.. HD today Subjective Subjective No new c/o. Objective Objective Last 24 Hour Vital Signs Date Time Temp Pulse Resp B/P (MAP) Pulse Ox O2 Delivery O2 Flow Rate FiO2 11/03/16 09:00 169/110 11/03/16 09:00 169/110 11/03/16 09:00 87 169/110 11/03/16 08:00 98.1 87 18 173/103 98 Room Air 11/03/16 04:00 95 11/03/16 03:46 97.7 86 20 169/110 99 Room Air 11/03/16 00:21 98.0 88 20 179/100 94 Room Air 11/02/16 21:10 155/93 11/02/16 21:10 88 155/93 11/02/16 20:00 92 11/02/16 20:00 97.9 88 155/93 Room Air 11/02/16 18:00 99 11/02/16 16:00 100 153/97 Room Air 11/02/16 15:30 98.4 92 20 168/99 100 Room Air 11/02/16 14:04 159/95 11/02/16 14:04 98 159/95 11/02/16 13:30 98.9 98 18 159/95 100 Nasal Cannula 3.0 11/02/16 13:15 95 21 156/92 100 Nasal Cannula 3.0 11/02/16 13:10 96 22 98 11/02/16 13:09 97 19 158/92 100 Nasal Cannula 3.0 11/02/16 13:08 97 22 98 11/02/16 13:04 102 19 152/94 100 Nasal Cannula 3.0 11/02/16 12:59 99.6 100 19 159/89 100 Nasal Cannula 3.0 11/02/16 12:00 94 11/02/16 11:33 96.5 90 20 167/99 100 Room Air Laboratory Tests 11/02/16 10:12: White Blood Count 3.6L, Red Blood Count 3.11L, Hemoglobin 9.1L, Hematocrit 29.4L , Mean Corpuscular Volume 94, Mean Corpuscular Hemoglobin 29.3, Mean Corpuscular Hemoglobin Concent 31.0L, Red Cell Distribution Width 19.2H, Platelet Count 88L, Mean Platelet Volume 7.1, Neutrophils (%) (Auto) , Lymphocytes (%) (Auto) , Monocytes (%) (Auto) , Eosinophils (%) (Auto) , Basophils (%) (Auto) , Differential Total Cells Counted 100, Neutrophils % ( Manual) 67, Lymphocytes % (Manual) 18L, Monocytes % (Manual) 5, Eosinophils % ( Manual) 10H, Basophils % (Manual) 0, Band Neutrophils 0, Platelet Estimate DecreasedL, Platelet Morphology Normal, Hypochromasia 1+, Anisocytosis 1+, Tear Drop Cells 1+, Prothrombin Time 10.4, Prothromb Time International Ratio 1.0, Activated Partial Thromboplast Time 31, Sodium Level 139, Potassium Level 4.7, Chloride Level 100, Carbon Dioxide Level 22, Anion Gap 17H, Blood Urea Nitrogen 32H, Creatinine 5.4H, Estimat Glomerular Filtration Rate 15.2, Glucose Level 81 , Calcium Level 8.4L, Random Vancomycin Level 20.3 11/03/16 04:00: White Blood Count 3.6L, Red Blood Count 2.85L, Hemoglobin 8.7L, Hematocrit 27.5L , Mean Corpuscular Volume 96, Mean Corpuscular Hemoglobin 30.5, Mean Corpuscular Hemoglobin Concent 31.7L, Red Cell Distribution Width 20.2H, Platelet Count 66L, Mean Platelet Volume 4.8L, Neutrophils (%) (Auto) , Lymphocytes (%) (Auto) , Monocytes (%) (Auto) , Eosinophils (%) (Auto) , Basophils (%) (Auto) , Differential Total Cells Counted 100, Neutrophils % ( Manual) 58, Lymphocytes % (Manual) 28, Monocytes % (Manual) 4, Eosinophils % ( Manual) 8H, Basophils % (Manual) 0, Band Neutrophils 2, Platelet Estimate DecreasedL, Platelet Morphology Normal, Hypochromasia 1+, Anisocytosis 1+, Tear Drop Cells 1+, Sodium Level 140, Potassium Level 5.1H, Chloride Level 103, Carbon Dioxide Level 22, Anion Gap 15, Blood Urea Nitrogen 40H, Creatinine 6.3H , Estimat Glomerular Filtration Rate 12.7, Glucose Level 76, Calcium Level 8.6, Nucleated Red Blood Cells 2, Macrocytosis 1+, Ovalocytes 1+, Blister Cells 1+, Schistocytes 1+, Phosphorus Level 4.8 Height (Feet): 5 Height (Inches): 10.00 Weight (Pounds): 103 Objective Cachectic. Muscle dystrophy. Mild exophthalmos. CV rr Lungs CTA Abd SNT. BS + E No CCE. L arm carpopedal deformity. ARNIE SWEET Nov 03, 2016 10:11
--- NOTE | 2016-11-03 11:01 | GI Progress Note ---
Assessment/Plan Problems: (1) Alkaline phosphatase elevation ICD Codes: R74.8 - Abnormal levels of other serum enzymes SNOMED: 659257001 (2) Severe malnutrition ICD Codes: E43 - Unspecified severe protein-calorie malnutrition SNOMED: 40817063 (3) Sigmoid thickening ICD Codes: K63.9 - Disease of intestine, unspecified SNOMED: 252644415 (4) Anemia ICD Codes: D64.9 - Anemia, unspecified SNOMED: 253895814 (5) GI bleed ICD Codes: K92.2 - Gastrointestinal hemorrhage, unspecified SNOMED: 66499831 Qualifiers: Qualified Codes: K92.2 - Gastrointestinal hemorrhage, unspecified (6) Elevated CEA ICD Codes: R97.0 - Elevated carcinoembryonic antigen [CEA] SNOMED: 44376267, 211303928 Status: stable Status Narrative Discussed with Dr. Sandoval. Assessment/Plan CP AP noncon reviewed >> constipation, HH - Equivocal wall thickening of the distal sigmoid and rectum. - Extensive mixed osteolytic and osteoblastic, mostly osteolytic, lesions of the visualized axial skeleton. These are new since these exam of 2011. 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 However, there are pathologies including metastatic disease should also be considered. CEA elevation s/p EGD SUMMARY OF FINDINGS: 1. Large hiatal hernia. 2. Minimum distal esophagitis. 3. Bile reflux. 4. Diffuse gastritis. 5. Prominent fold in the antrum, status post biopsy. 6. Sharp bend in the peripyloric region before going to the duodenum making getting into the duodenum difficult. 7. Biopsy unremarkable s/p colonoscopy SUMMARY OF FINDINGS: 1. Incomplete colonoscopy examination only of sigmoid colon, even that was very poor prep. 2. Status post random biopsy of rectosigmoid area. RECOMMENDATIONS: clear for DC per GI standpoint follow up biopsies and treat monitor H&H, prn transfusions fu labs Subjective Subjective black stool Objective Last 24 Hour Vital Signs Date Time Temp Pulse Resp B/P (MAP) Pulse Ox O2 Delivery O2 Flow Rate FiO2 11/03/16 09:00 169/110 11/03/16 09:00 169/110 11/03/16 09:00 87 169/110 11/03/16 08:00 83 11/03/16 08:00 98.1 87 18 173/103 98 Room Air 9/29/17 04:00 95 11/03/16 03:46 97.7 86 20 169/110 99 Room Air 11/03/16 00:21 98.0 88 20 179/100 94 Room Air 11/02/16 21:10 155/93 11/02/16 21:10 88 155/93 11/02/16 20:00 92 11/02/16 20:00 97.9 88 155/93 Room Air 11/02/16 18:00 99 11/02/16 16:00 100 153/97 Room Air 11/02/16 15:30 98.4 92 20 168/99 100 Room Air 11/02/16 14:04 159/95 11/02/16 14:04 98 159/95 11/02/16 13:30 98.9 98 18 159/95 100 Nasal Cannula 3.0 11/02/16 13:15 95 21 156/92 100 Nasal Cannula 3.0 11/02/16 13:10 96 22 98 11/02/16 13:09 97 19 158/92 100 Nasal Cannula 3.0 11/02/16 13:08 97 22 98 11/02/16 13:04 102 19 152/94 100 Nasal Cannula 3.0 11/02/16 12:59 99.6 100 19 159/89 100 Nasal Cannula 3.0 11/02/16 12:00 94 11/02/16 11:33 96.5 90 20 167/99 100 Room Air Laboratory Tests Test 11/03/16 04:00 White Blood Count 3.6 K/UL (4.8-10.8) L Red Blood Count 2.85 M/UL (4.70-6.10) L Hemoglobin 8.7 G/DL (14.2-18.0) L Hematocrit 27.5 % (42.0-52.0) L Mean Corpuscular Volume 96 FL (80-99) Mean Corpuscular Hemoglobin 30.5 PG (27.0-31.0) Mean Corpuscular Hemoglobin Concent 31.7 G/DL (32.0-36.0) L Red Cell Distribution Width 20.2 % (11.6-14.8) H Platelet Count 66 K/UL (150-450) L Mean Platelet Volume 4.8 FL (6.5-10.1) L Neutrophils (%) (Auto) % (45.0-75.0) Lymphocytes (%) (Auto) % (20.0-45.0) Monocytes (%) (Auto) % (1.0-10.0) Eosinophils (%) (Auto) % (0.0-3.0) Basophils (%) (Auto) % (0.0-2.0) Differential Total Cells Counted 100 Neutrophils % (Manual) 58 % (45-75) Lymphocytes % (Manual) 28 % (20-45) Monocytes % (Manual) 4 % (1-10) Eosinophils % (Manual) 8 % (0-3) H Basophils % (Manual) 0 % (0-2) Band Neutrophils 2 % (0-8) Nucleated Red Blood Cells 2 /100 WBC Platelet Estimate Decreased L Platelet Morphology Normal Hypochromasia 1+ Anisocytosis 1+ Macrocytosis 1+ Tear Drop Cells 1+ Ovalocytes 1+ Blister Cells 1+ Schistocytes 1+ Sodium Level 140 mEQ/L (135-145) Potassium Level 5.1 mEQ/L (3.4-4.9) H Chloride Level 103 mEQ/L (98-107) Carbon Dioxide Level 22 mEQ/L (20-30) Anion Gap 15 (5-15) Blood Urea Nitrogen 40 mg/dL (7-23) H Creatinine 6.3 mg/dL (0.7-1.2) H Estimat Glomerular Filtration Rate 12.7 mL/min (>60) Glucose Level 76 mg/dL (74-106) Calcium Level 8.6 mg/dL (8.6-10.2) Phosphorus Level 4.8 mg/dL (2.5-4.8) Height (Feet): 5 Height (Inches): 10.00 Weight (Pounds): 103 General Appearance: no apparent distress, alert, thin Cardiovascular: normal rate Respiratory/Chest: normal breath sounds, no respiratory distress Abdominal Exam: normal bowel sounds, non tender, soft Ashleigh Marie N.PIsabelle Nov 03, 2016 11:01
--- NOTE | 2016-11-03 11:22 | Cardiology Progress Note ---
Assessment/Plan Assessment/Plan 1. Chest pain with history of the same. 2. History of chronic pericarditis. 3. End-stage renal disease, on hemodialysis. 4. Status post nephrectomy. 5. History of cerebrovascular accident. 6. Hypertensive disease. 7. Anemia of chronic disease. trop neg tele neg adjust med ttc pathc , clonidien po , labatolol bp is stillelevated maybe relted to his poor diet !!!! he ahs als ort of chips adn beverages at his bed side if opt is elevated afete dialysis today will inrease clonidien po tele show no correlation to pts sx of palp Subjective Cardiovascular: Reports: chest pain, palpitations Respiratory: Reports: shortness of breath Gastrointestinal/Abdominal: Denies: abdominal pain Genitourinary: Denies: burning Objective Last 24 Hour Vital Signs Date Time Temp Pulse Resp B/P (MAP) Pulse Ox O2 Delivery O2 Flow Rate FiO2 11/03/16 09:00 169/110 11/03/16 09:00 169/110 11/03/16 09:00 87 169/110 11/03/16 08:00 83 11/03/16 08:00 98.1 87 18 173/103 98 Room Air 11/03/16 04:00 95 11/03/16 03:46 97.7 86 20 169/110 99 Room Air 11/03/16 00:21 98.0 88 20 179/100 94 Room Air 11/02/16 21:10 155/93 11/02/16 21:10 88 155/93 11/02/16 20:00 92 11/02/16 20:00 97.9 88 155/93 Room Air 11/02/16 18:00 99 11/02/16 16:00 100 153/97 Room Air 11/02/16 15:30 98.4 92 20 168/99 100 Room Air 11/02/16 14:04 159/95 11/02/16 14:04 98 159/95 11/02/16 13:30 98.9 98 18 159/95 100 Nasal Cannula 3.0 11/02/16 13:15 95 21 156/92 100 Nasal Cannula 3.0 11/02/16 13:10 96 22 98 11/02/16 13:09 97 19 158/92 100 Nasal Cannula 3.0 11/02/16 13:08 97 22 98 11/02/16 13:04 102 19 152/94 100 Nasal Cannula 3.0 11/02/16 12:59 99.6 100 19 159/89 100 Nasal Cannula 3.0 11/02/16 12:00 94 11/02/16 11:33 96.5 90 20 167/99 100 Room Air General Appearance: no apparent distress, alert Neck: supple Cardiovascular: normal rate, regular rhythm Respiratory/Chest: lungs clear Abdomen: normal bowel sounds, non tender, soft Extremities: no swelling Laboratory Tests Test 11/03/16 04:00 White Blood Count 3.6 K/UL (4.8-10.8) L Red Blood Count 2.85 M/UL (4.70-6.10) L Hemoglobin 8.7 G/DL (14.2-18.0) L Hematocrit 27.5 % (42.0-52.0) L Mean Corpuscular Volume 96 FL (80-99) Mean Corpuscular Hemoglobin 30.5 PG (27.0-31.0) Mean Corpuscular Hemoglobin Concent 31.7 G/DL (32.0-36.0) L Red Cell Distribution Width 20.2 % (11.6-14.8) H Platelet Count 66 K/UL (150-450) L Mean Platelet Volume 4.8 FL (6.5-10.1) L Neutrophils (%) (Auto) % (45.0-75.0) Lymphocytes (%) (Auto) % (20.0-45.0) Monocytes (%) (Auto) % (1.0-10.0) Eosinophils (%) (Auto) % (0.0-3.0) Basophils (%) (Auto) % (0.0-2.0) Differential Total Cells Counted 100 Neutrophils % (Manual) 58 % (45-75) Lymphocytes % (Manual) 28 % (20-45) Monocytes % (Manual) 4 % (1-10) Eosinophils % (Manual) 8 % (0-3) H Basophils % (Manual) 0 % (0-2) Band Neutrophils 2 % (0-8) Nucleated Red Blood Cells 2 /100 WBC Platelet Estimate Decreased L Platelet Morphology Normal Hypochromasia 1+ Anisocytosis 1+ Macrocytosis 1+ Tear Drop Cells 1+ Ovalocytes 1+ Blister Cells 1+ Schistocytes 1+ Sodium Level 140 mEQ/L (135-145) Potassium Level 5.1 mEQ/L (3.4-4.9) H Chloride Level 103 mEQ/L (98-107) Carbon Dioxide Level 22 mEQ/L (20-30) Anion Gap 15 (5-15) Blood Urea Nitrogen 40 mg/dL (7-23) H Creatinine 6.3 mg/dL (0.7-1.2) H Estimat Glomerular Filtration Rate 12.7 mL/min (>60) Glucose Level 76 mg/dL (74-106) Calcium Level 8.6 mg/dL (8.6-10.2) Phosphorus Level 4.8 mg/dL (2.5-4.8) SAMINA STERN Nov 03, 2016 11:22
--- NOTE | 2016-11-03 12:15 | Diagnostic Imaging Report ---
APPROVED REPORT CPT Code: 26955 Present Symptoms Comments: Chest pain BILATERAL: Imaging reveals a patent deep venous system bilaterally. There is no evidence of thrombus within the femoral, popliteal or tibial segments. The greater saphenous veins are also within normal limits. Doppler indicates normal spontaneous flow within these segments.
[2016-11-03] MEDS: cefTRIAXone 1 GM in D5W 55 ML IVPB SCH (14:59)
[2016-11-03] MEDS ORDERED: Heparin Sod 1000 units/ml 10ml IV ONE (16:30)
[2016-11-03] MEDS ORDERED: Heparin 5000 units/ml inj INJ SCH (16:30)
[2016-11-04] VITALS (7 sets, daily range): BP systolic 137–187; BP diastolic 64–112
[2016-11-04] MEDS: Epogen (for ESRD on dialysis) SUBQ SCH (01:01)
[2016-11-04] MEDS: Depakote 500mg tab ORAL SCH ×3 (01:03→20:39)
[2016-11-04] MEDS: DiphenhydrAMINE 50mg/ml Inj IVP PRN ×3 (01:47→18:35)
[2016-11-04] MEDS: Lisinopril 20mg tab ORAL SCH (09:55)
[2016-11-04] MEDS: Dyna-Hex 2% Top Sol 2oz TOPIC SCH (09:56)
--- NOTE | 2016-11-04 10:01 | Infectious Diseases Prog Note ---
Assessment/Plan Assessment/Plan Assessment/Plan A: The patient is a 30-year-old male with history of chronic pericarditis, etiology and the exact kind of management for this is not totally clear History of hypertension. Asthma. history of end-stage renal disease, on hemodialysis. PLAN: will continue the patient on IV Vancomycin and Rocephin d# 5 for now , upon DC pt may resume plan of AB rx followed by home health Monitor CBC Monitor BMP. will try to contact out side MDas to get more information re plan of AB Rx, Subjective Constitutional: Denies: no symptoms, fever, chills, fatigue, anorexia, drenching sweats, other Allergies: Coded Allergies: KETOROLAC (Verified Allergy, Mild, SOB, 06/28/11) METOCLOPRAMIDE (Verified Allergy, Mild, RASH, 06/28/11) NITROGLYCERIN (Verified Allergy, Mild, SEIZURES, 06/28/11) PENICILLINS (Verified Allergy, Mild, SOB, 06/28/11) PHENYTOIN (Verified Allergy, Mild, RASH, 06/28/11) ACETAMINOPHEN (Verified Allergy, Unknown, Shortness of Breath, 08/31/16) swelling throat, difficulty breathing CODEINE (Unverified Allergy, Unknown, 10/16/16) HEPARIN (Verified Allergy, Unknown, Shortness of Breath, 08/28/16) HYDRALAZINE (Verified Allergy, Unknown, 08/28/16) HYDROCODONE (Verified Allergy, Unknown, Shortness of Breath, 08/31/16) swelling throat, difficulty breathing IBUPROFEN (Verified Allergy, Unknown, RASH, 06/28/11) IODINE (Verified Allergy, Unknown, SHOCK, 06/28/11) POLYSTYRENE SULFONATE (Verified Allergy, Unknown, RASH, 06/28/11) PROMETHAZINE (Verified Allergy, Unknown, RASH, 06/28/11) Objective Vital Signs Last 24 Hour Vital Signs Date Time Temp Pulse Resp B/P (MAP) Pulse Ox O2 Delivery O2 Flow Rate FiO2 11/04/16 09:55 187/112 11/04/16 09:55 187/112 11/04/16 09:55 87 187/112 11/04/16 08:00 98.1 87 20 187/112 98 Room Air 11/04/16 04:00 89 11/04/16 04:00 97.9 91 20 153/101 98 Room Air 11/04/16 01:02 103 149/86 11/04/16 00:00 107 11/04/16 00:00 98.2 99 20 149/86 98 Room Air 11/03/16 20:01 97.7 86 18 158/99 98 Room Air 11/03/16 20:00 88 11/03/16 18:04 189/117 11/03/16 16:00 88 11/03/16 16:00 97.7 89 20 189/117 99 Room Air 11/03/16 12:00 85 11/03/16 12:00 98.5 86 20 141/84 99 Room Air Height (Feet): 5 Height (Inches): 10.00 Weight (Pounds): 100 HEENT: anicteric Respiratory/Chest: normal breath sounds Cardiovascular: regular rhythm Abdomen: no organomegaly Current Medications Medications (Trade) Dose Ordered Sig/Anant Route PRN Reason Start Time Stop Time Status Last Admin Dose Admin Al Hydroxide/Mg Hydroxide (Mylanta II) 30 ml Q6H PRN ORAL dyspepsia 10/30/16 21:15 11/29/16 21:14 Ceftriaxone Sodium 1 gm/ Dextrose 55 ml @ 110 mls/hr Q24H IVPB 10/31/16 15:00 11/07/16 14:59 11/03/16 14:59 Chlorhexidine Gluconate (Yessi-Hex 2%) 1 applic DAILY TOPIC 11/01/16 09:00 12/01/16 08:59 11/04/16 09:56 Clonidine HCl (Catapres TTS-2) 1 patch QWEEK TDERMAL 10/31/16 15:00 11/30/16 14:59 10/31/16 16:42 Clonidine HCl (Catapres) 0.1 mg BID ORAL 11/02/16 21:00 12/02/16 20:59 11/04/16 09:55 Dextrose (Dextrose 50%) STAT PRN IV Hypoglycemia 10/30/16 21:15 11/29/16 21:14 Diphenhydramine HCl (Benadryl) 25 mg Q6H PRN IVP Itching 10/31/16 17:00 11/30/16 16:59 11/04/16 09:53 Divalproex Sodium (Depakote) 500 mg EVERY 12 HOURS ORAL 10/31/16 09:00 11/30/16 08:59 11/04/16 09:54 Epoetin Rajinder (Procrit (for ESRD on dialysis)) 5,000 units SUN-SUN-SUN SUBQ 11/01/16 21:00 12/01/16 20:59 11/04/16 01:01 Heparin Sodium (Porcine) (Heparin 5000 units/ml) 5,000 units POSTHD INJ 11/03/16 16:30 12/03/16 16:29 Hydromorphone HCl (Dilaudid) 2 mg Q4H PRN IV Severe Pain (Pain Scale 7-10) 10/30/16 21:15 11/06/16 21:14 11/04/16 09:53 Labetalol HCl (Normodyne) 200 mg Q12HR ORAL 10/31/16 09:00 11/30/16 08:59 11/04/16 09:55 Levetiracetam (Keppra) 1,000 mg Q12HR ORAL 10/30/16 23:30 11/29/16 23:29 11/04/16 09:54 Lisinopril (Prinivil) 20 mg DAILY ORAL 11/02/16 09:00 12/02/16 08:59 11/04/16 09:55 Lorazepam (Ativan 2mg/ml 1ml) 0.5 mg Q4H PRN IV For Anxiety 10/30/16 21:15 11/06/16 21:14 Mirtazapine (Remeron) 15 mg BEDTIME ORAL 11/01/16 21:00 12/01/16 20:59 11/04/16 01:03 Ondansetron HCl (Zofran) 4 mg Q6H PRN IVP Nausea & Vomiting 10/30/16 21:15 11/29/16 21:14 Pantoprazole (Protonix) 40 mg ACBREAKFAST ORAL 11/04/16 06:30 11/30/16 08:59 11/04/16 07:23 Polyethylene Glycol (Miralax) 17 gm HSPRN PRN ORAL Constipation 10/30/16 21:15 11/29/16 21:14 11/01/16 17:29 Vancomycin HCl (Vanco rx to dose) 1 ea DAILY PRN MISC Per rx protocol 10/31/16 13:00 11/30/16 12:59 Zolpidem Tartrate (Ambien) 5 mg HSPRN PRN ORAL Insomnia 10/30/16 21:15 11/06/16 21:14 FAITH WOOD M.D. Nov 04, 2016 10:01
--- NOTE | 2016-11-04 10:37 | Nephrology Progress Note ---
Assessment/Plan Plan 1) ESRD on HD 2) Anemia of CKD 3) HTN 4) hyperphosphatemia Plan HD on Mon add Norvasc 5 g BID continue Epogen Subjective Subjective got HD with UF 2.5L, BP is still high Objective Objective Last 24 Hour Vital Signs Date Time Temp Pulse Resp B/P (MAP) Pulse Ox O2 Delivery O2 Flow Rate FiO2 11/04/16 09:55 187/112 11/04/16 09:55 187/112 11/04/16 09:55 87 187/112 11/04/16 08:00 98.1 87 20 187/112 98 Room Air 11/04/16 04:00 89 11/04/16 04:00 97.9 91 20 153/101 98 Room Air 11/04/16 01:02 103 149/86 11/04/16 00:00 107 11/04/16 00:00 98.2 99 20 149/86 98 Room Air 11/03/16 20:01 97.7 86 18 158/99 98 Room Air 11/03/16 20:00 88 11/03/16 18:04 189/117 11/03/16 16:00 88 11/03/16 16:00 97.7 89 20 189/117 99 Room Air 11/03/16 12:00 85 11/03/16 12:00 98.5 86 20 141/84 99 Room Air Height (Feet): 5 Height (Inches): 10.00 Weight (Pounds): 100 Objective NAD, AAOx3 CTA b/l,no rales, no rhonchi S1,s2,RRR soft,nontender, BS+ no edema, L ceht permacath+ ARROYO,MONALISA Nov 04, 2016 10:37
--- NOTE | 2016-11-04 14:23 | Cardiology Progress Note ---
Assessment/Plan Problem List: (1) Chest pain (2) Anemia (3) Hypertensive emergency (4) ESRF (end stage renal failure) (5) History of CVA (cerebrovascular accident) Status: stable, unchanged Status Narrative Chest pain - ? demand ischemia ? pericarditis Initial troponin negative. Per note from pt's primary MD, Dr Gaines, pt has had normal cor angiogram in the past. CP may be due to demand ischemia in setting of elevated BPs ESRD, on hemodialysis h/o CVA, L hemiparesis Assessment/Plan Continue labetalol. Fluid removal w/ HD ECHO to assess LV wall motion and r/o pericardial effusion. Subjective ROS Limited/Unobtainable: No Subjective Cardiology for Dr. Oneal Pt c/o intermittent CP. also c/o rapid HR during HD Objective Last 24 Hour Vital Signs Date Time Temp Pulse Resp B/P (MAP) Pulse Ox O2 Delivery O2 Flow Rate FiO2 11/04/16 13:09 90 146/83 11/04/16 12:00 98.3 89 20 146/83 98 Room Air 11/04/16 12:00 90 11/04/16 10:23 98.1 11/04/16 09:55 187/112 11/04/16 09:55 187/112 11/04/16 09:55 87 187/112 11/04/16 08:00 98.1 87 20 187/112 98 Room Air 11/04/16 08:00 85 11/04/16 04:00 89 11/04/16 04:00 97.9 91 20 153/101 98 Room Air 11/04/16 01:02 103 149/86 11/04/16 00:00 107 11/04/16 00:00 98.2 99 20 149/86 98 Room Air 11/03/16 20:01 97.7 86 18 158/99 98 Room Air 11/03/16 20:00 88 11/03/16 18:04 189/117 11/03/16 16:00 88 11/03/16 16:00 97.7 89 20 189/117 99 Room Air General Appearance: WD/WN, no apparent distress, alert EENT: PERRL/EOMI Neck: no JVD Rhythm: NSR Cardiovascular: normal rate, regular rhythm, no gallop/murmur, tachycardia Respiratory/Chest: lungs clear Abdomen: non tender, soft Extremities: no swelling, other - R UE AV fistula - no bruit Intake and Output 11/04/16 11/05/16 19:00 07:00 # Bowel Movements 1 TAYLOR BECKMAN Nov 04, 2016 14:23
[2016-11-04] MEDS: cefTRIAXone 1 GM in D5W 55 ML IVPB SCH (15:11)
--- NOTE | 2016-11-04 15:15 | Pulmonology Progress Note ---
Assessment/Plan Problems: (1) Chest pain (2) Hypokalemia (3) Uncontrolled hypertension (4) ESRF (end stage renal failure) (5) Left hemiplegia (6) Pericarditis (7) Severe malnutrition (8) Anemia Assessment/Plan symptomatic treatment HD by nephrology cariology to see all notes reviewed and appreciated. check electrolytes dc planning Subjective ROS Limited/Unobtainable: No Allergies: Coded Allergies: KETOROLAC (Verified Allergy, Mild, SOB, 06/28/11) METOCLOPRAMIDE (Verified Allergy, Mild, RASH, 06/28/11) NITROGLYCERIN (Verified Allergy, Mild, SEIZURES, 06/28/11) PENICILLINS (Verified Allergy, Mild, SOB, 06/28/11) PHENYTOIN (Verified Allergy, Mild, RASH, 06/28/11) ACETAMINOPHEN (Verified Allergy, Unknown, Shortness of Breath, 08/31/16) swelling throat, difficulty breathing CODEINE (Unverified Allergy, Unknown, 10/16/16) HEPARIN (Verified Allergy, Unknown, Shortness of Breath, 08/28/16) HYDRALAZINE (Verified Allergy, Unknown, 08/28/16) HYDROCODONE (Verified Allergy, Unknown, Shortness of Breath, 08/31/16) swelling throat, difficulty breathing IBUPROFEN (Verified Allergy, Unknown, RASH, 06/28/11) IODINE (Verified Allergy, Unknown, SHOCK, 06/28/11) POLYSTYRENE SULFONATE (Verified Allergy, Unknown, RASH, 06/28/11) PROMETHAZINE (Verified Allergy, Unknown, RASH, 06/28/11) Objective Last 24 Hour Vital Signs Date Time Temp Pulse Resp B/P (MAP) Pulse Ox O2 Delivery O2 Flow Rate FiO2 11/04/16 14:28 98.3 11/04/16 13:09 90 146/83 11/04/16 12:00 98.3 89 20 146/83 98 Room Air 11/04/16 12:00 90 11/04/16 09:55 187/112 11/04/16 09:55 187/112 11/04/16 09:55 87 187/112 11/04/16 08:00 98.1 87 20 187/112 98 Room Air 11/04/16 08:00 85 11/04/16 04:00 89 11/04/16 04:00 97.9 91 20 153/101 98 Room Air 11/04/16 01:02 103 149/86 11/04/16 00:00 107 11/04/16 00:00 98.2 99 20 149/86 98 Room Air 11/03/16 20:01 97.7 86 18 158/99 98 Room Air 11/03/16 20:00 88 11/03/16 18:04 189/117 11/03/16 16:00 88 11/03/16 16:00 97.7 89 20 189/117 99 Room Air Intake and Output 11/04/16 11/05/16 19:00 07:00 # Bowel Movements 1 Objective HEENT: normocephalic, atraumatic Respiratory/Chest: chest wall non-tender, lungs clear, normal breath sounds Cardiovascular: normal peripheral pulses, normal rate Abdomen: normal bowel sounds, no organomegaly Current Medications Medications (Trade) Dose Ordered Sig/Anant Route PRN Reason Start Time Stop Time Status Last Admin Dose Admin Al Hydroxide/Mg Hydroxide (Mylanta II) 30 ml Q6H PRN ORAL dyspepsia 10/30/16 21:15 11/29/16 21:14 Amlodipine Besylate (Norvasc) 5 mg Q12HR ORAL 11/04/16 10:45 12/04/16 10:44 11/04/16 13:09 Ceftriaxone Sodium 1 gm/ Dextrose 55 ml @ 110 mls/hr Q24H IVPB 10/31/16 15:00 11/07/16 14:59 11/04/16 15:11 Chlorhexidine Gluconate (Yessi-Hex 2%) 1 applic DAILY TOPIC 11/01/16 09:00 12/01/16 08:59 11/04/16 09:56 Clonidine HCl (Catapres TTS-2) 1 patch QWEEK TDERMAL 10/31/16 15:00 11/30/16 14:59 10/31/16 16:42 Clonidine HCl (Catapres) 0.1 mg BID ORAL 11/02/16 21:00 12/02/16 20:59 11/04/16 09:55 Dextrose (Dextrose 50%) STAT PRN IV Hypoglycemia 10/30/16 21:15 11/29/16 21:14 Diphenhydramine HCl (Benadryl) 25 mg Q6H PRN IVP Itching 10/31/16 17:00 11/30/16 16:59 9/30/17 09:53 Divalproex Sodium (Depakote) 500 mg EVERY 12 HOURS ORAL 10/31/16 09:00 11/30/16 08:59 11/04/16 09:54 Epoetin Rajinder (Procrit (for ESRD on dialysis)) 5,000 units SUN-SUN-SUN SUBQ 11/01/16 21:00 12/01/16 20:59 11/04/16 01:01 Heparin Sodium (Porcine) (Heparin 5000 units/ml) 5,000 units POSTHD INJ 11/03/16 16:30 12/03/16 16:29 Hydromorphone HCl (Dilaudid) 2 mg Q4H PRN IV Severe Pain (Pain Scale 7-10) 10/30/16 21:15 11/06/16 21:14 11/04/16 13:58 Labetalol HCl (Normodyne) 200 mg Q12HR ORAL 10/31/16 09:00 11/30/16 08:59 11/04/16 09:55 Levetiracetam (Keppra) 1,000 mg Q12HR ORAL 10/30/16 23:30 11/29/16 23:29 11/04/16 09:54 Lisinopril (Prinivil) 20 mg DAILY ORAL 11/02/16 09:00 12/02/16 08:59 11/04/16 09:55 Lorazepam (Ativan 2mg/ml 1ml) 0.5 mg Q4H PRN IV For Anxiety 10/30/16 21:15 11/06/16 21:14 Mirtazapine (Remeron) 15 mg BEDTIME ORAL 11/01/16 21:00 12/01/16 20:59 11/04/16 01:03 Ondansetron HCl (Zofran) 4 mg Q6H PRN IVP Nausea & Vomiting 10/30/16 21:15 11/29/16 21:14 Pantoprazole (Protonix) 40 mg ACBREAKFAST ORAL 11/04/16 06:30 11/30/16 08:59 11/04/16 07:23 Polyethylene Glycol (Miralax) 17 gm HSPRN PRN ORAL Constipation 10/30/16 21:15 11/29/16 21:14 11/01/16 17:29 Vancomycin HCl (Vanco rx to dose) 1 ea DAILY PRN MISC Per rx protocol 10/31/16 13:00 11/30/16 12:59 Zolpidem Tartrate (Ambien) 5 mg HSPRN PRN ORAL Insomnia 10/30/16 21:15 11/06/16 21:14 BETHEL PACK Nov 04, 2016 15:15
[2016-11-04] MEDS ORDERED: NS 275ml ONE (17:36)
[2016-11-04] MEDS ORDERED: Mylanta II UD 30ml ORAL PRN (18:30)
[2016-11-04] MEDS ORDERED: LORazepam Inj 2mg/ml 1ml IV PRN (18:30)
[2016-11-04] MEDS ORDERED: Miralax 17gm pkt ORAL PRN (21:15)
[2016-11-04] MEDS ORDERED: Zolpidem 5mg tab ORAL PRN (21:15)
[2016-11-05] VITALS: BP 139/81
[2016-11-05] MEDS: DiphenhydrAMINE 50mg/ml Inj IVP PRN ×3 (02:36→18:59)
[2016-11-05 04:00] VITALS: BP 135/73
[2016-11-05 08:00] VITALS: BP 138/78
[2016-11-05] MEDS: Dyna-Hex 2% Top Sol 2oz TOPIC SCH (09:46)
[2016-11-05] MEDS: Lisinopril 20mg tab ORAL SCH (09:47)
[2016-11-05] MEDS: Depakote 500mg tab ORAL SCH ×2 (09:48→20:25)
--- NOTE | 2016-11-05 10:33 | Nephrology Progress Note ---
Assessment/Plan Plan 1) ESRD on HD 2) Anemia of CKD 3) HTN--controlled now 4) hyperphosphatemia Plan HD tomorrow continue Epogen Subjective Subjective denies any c/o. No acute event Objective Objective Last 24 Hour Vital Signs Date Time Temp Pulse Resp B/P (MAP) Pulse Ox O2 Delivery O2 Flow Rate FiO2 11/05/16 09:48 86 138/78 11/05/16 09:48 138/78 11/05/16 09:47 138/78 11/05/16 09:47 86 138/78 11/05/16 08:00 97.7 86 18 138/78 97 Room Air 11/05/16 04:00 97.2 89 18 135/73 99 Room Air 11/05/16 00:00 97.5 91 20 139/81 100 Room Air 11/04/16 20:36 89 137/78 11/04/16 20:35 89 137/78 11/04/16 20:00 97.7 89 20 137/78 100 Room Air 11/04/16 18:31 146/83 11/04/16 16:00 97.0 84 20 142/64 98 Room Air 11/04/16 16:00 85 11/04/16 16:00 97.9 97 20 141/98 98 Room Air 11/04/16 14:28 98.3 11/04/16 13:09 90 146/83 11/04/16 12:00 98.3 89 20 146/83 98 Room Air 11/04/16 12:00 90 Height (Feet): 5 Height (Inches): 10.00 Weight (Pounds): 100 Objective NAD, AAOx3 CTA b/l,no rales, no rhonchi S1,s2,RRR soft,nontender, BS+ no edema, L ceht permacath+ ARROYO,MONALISA Nov 05, 2016 10:32
[2016-11-05 12:00] VITALS: BP 134/81
--- NOTE | 2016-11-05 13:12 | Infectious Diseases Prog Note ---
Assessment/Plan Assessment/Plan A; Pericarditis ESRD on HD Renal osteodystrophy history of CVA Anemia P; Continue Ceftriaxone & Vancomycin Subjective ROS Limited/Unobtainable: No HEENT: Reports: other - left facial bump Cardiovascular: Reports: no symptoms Gastrointestinal/Abdominal: Reports: no symptoms Genitourinary: Reports: no symptoms Allergies: Coded Allergies: KETOROLAC (Verified Allergy, Mild, SOB, 06/28/11) METOCLOPRAMIDE (Verified Allergy, Mild, RASH, 06/28/11) NITROGLYCERIN (Verified Allergy, Mild, SEIZURES, 06/28/11) PENICILLINS (Verified Allergy, Mild, SOB, 06/28/11) PHENYTOIN (Verified Allergy, Mild, RASH, 06/28/11) ACETAMINOPHEN (Verified Allergy, Unknown, Shortness of Breath, 08/31/16) swelling throat, difficulty breathing CODEINE (Unverified Allergy, Unknown, 10/16/16) HEPARIN (Verified Allergy, Unknown, Shortness of Breath, 08/28/16) HYDRALAZINE (Verified Allergy, Unknown, 08/28/16) HYDROCODONE (Verified Allergy, Unknown, Shortness of Breath, 08/31/16) swelling throat, difficulty breathing IBUPROFEN (Verified Allergy, Unknown, RASH, 06/28/11) IODINE (Verified Allergy, Unknown, SHOCK, 06/28/11) POLYSTYRENE SULFONATE (Verified Allergy, Unknown, RASH, 06/28/11) PROMETHAZINE (Verified Allergy, Unknown, RASH, 06/28/11) Objective Vital Signs Last 24 Hour Vital Signs Date Time Temp Pulse Resp B/P (MAP) Pulse Ox O2 Delivery O2 Flow Rate FiO2 11/05/16 09:48 86 138/78 11/05/16 09:48 138/78 11/05/16 09:47 138/78 11/05/16 09:47 86 138/78 11/05/16 08:00 97.7 86 18 138/78 97 Room Air 11/05/16 04:00 97.2 89 18 135/73 99 Room Air 11/05/16 00:00 97.5 91 20 139/81 100 Room Air 11/04/16 20:36 89 137/78 11/04/16 20:35 89 137/78 11/04/16 20:00 97.7 89 20 137/78 100 Room Air 11/04/16 18:31 146/83 11/04/16 16:00 97.0 84 20 142/64 98 Room Air 11/04/16 16:00 85 11/04/16 16:00 97.9 97 20 141/98 98 Room Air 11/04/16 14:28 98.3 11/04/16 13:09 90 146/83 Height (Feet): 5 Height (Inches): 10.00 Weight (Pounds): 100 General Appearance: no acute distress HEENT: other - left maxillary painless slade swelling Cardiovascular: normal rate Abdomen: soft, non tender Extremities: no edema Neurologic/Psychiatric: alert, oriented x 3, responsive, other - left hemiplegia Current Medications Medications (Trade) Dose Ordered Sig/Anant Route PRN Reason Start Time Stop Time Status Last Admin Dose Admin Al Hydroxide/Mg Hydroxide (Mylanta II) 30 ml Q6H PRN ORAL dyspepsia 11/04/16 18:30 11/29/16 18:29 Amlodipine Besylate (Norvasc) 5 mg Q12HR ORAL 11/04/16 21:00 12/04/16 10:44 11/05/16 09:47 Ceftriaxone Sodium 1 gm/ Dextrose 55 ml @ 110 mls/hr Q24H IVPB 11/05/16 15:00 11/07/16 14:59 Chlorhexidine Gluconate (Yessi-Hex 2%) 1 applic DAILY TOPIC 11/05/16 09:00 12/01/16 08:59 11/05/16 09:46 Clonidine HCl (Catapres TTS-2) 1 patch QWEEK TDERMAL 11/07/16 15:00 11/30/16 14:59 Clonidine HCl (Catapres) 0.1 mg BID ORAL 11/04/16 18:30 12/04/16 18:29 11/05/16 09:48 Dextrose (Dextrose 50%) STAT PRN IV Hypoglycemia 11/04/16 18:30 11/29/16 18:29 Diphenhydramine HCl (Benadryl) 25 mg Q6H PRN IVP Itching 11/04/16 18:30 11/30/16 18:29 11/05/16 09:50 Divalproex Sodium (Depakote) 500 mg EVERY 12 HOURS ORAL 11/04/16 21:00 11/30/16 08:59 11/05/16 09:48 Epoetin Rajinder (Procrit (for ESRD on dialysis)) 5,000 units SUN-SUN-SUN SUBQ 11/06/16 21:00 12/01/16 20:59 Hydromorphone HCl (Dilaudid) 2 mg Q4H PRN IV Severe Pain (Pain Scale 7-10) 11/04/16 18:30 11/06/16 18:29 11/05/16 10:46 Labetalol HCl (Normodyne) 200 mg Q12HR ORAL 11/04/16 21:00 11/30/16 08:59 11/05/16 09:48 Levetiracetam (Keppra) 1,000 mg Q12HR ORAL 11/04/16 21:00 11/29/16 23:29 11/05/16 09:47 Lisinopril (Prinivil) 20 mg DAILY ORAL 11/05/16 09:00 12/02/16 08:59 11/05/16 09:47 Lorazepam (Ativan 2mg/ml 1ml) 0.5 mg Q4H PRN IV For Anxiety 11/04/16 18:30 11/06/16 18:29 Mirtazapine (Remeron) 15 mg BEDTIME ORAL 11/04/16 21:00 12/01/16 20:59 11/04/16 20:37 Ondansetron HCl (Zofran) 4 mg Q6H PRN IVP Nausea & Vomiting 11/04/16 18:30 11/29/16 18:29 Pantoprazole (Protonix) 40 mg ACBREAKFAST ORAL 11/05/16 06:30 11/30/16 08:59 11/05/16 06:47 Polyethylene Glycol (Miralax) 17 gm HSPRN PRN ORAL Constipation 11/04/16 21:15 11/29/16 21:14 Vancomycin HCl (Vanco rx to dose) 1 ea DAILY PRN MISC Per rx protocol 11/04/16 18:30 12/04/16 18:29 Zolpidem Tartrate (Ambien) 5 mg HSPRN PRN ORAL Insomnia 11/04/16 21:15 11/06/16 21:14 MARIMAR TORRES Nov 05, 2016 13:12
[2016-11-05] MEDS ORDERED: D5NS 1000ml IV ONE (15:26)
[2016-11-05 15:55] VITALS: BP 140/66
[2016-11-05] MEDS: cefTRIAXone 1 GM in D5W 55 ML IVPB SCH (16:04)
--- NOTE | 2016-11-05 16:14 | Pulmonology Progress Note ---
Assessment/Plan Problems: (1) Chest pain (2) Hypokalemia (3) Uncontrolled hypertension (4) ESRF (end stage renal failure) (5) Left hemiplegia (6) Pericarditis (7) Severe malnutrition (8) Anemia Assessment/Plan f/u colonoscopy results symptomatic treatment HD by nephrology cariology to see all notes reviewed and appreciated. check electrolytes dc planning in process Subjective ROS Limited/Unobtainable: No Allergies: Coded Allergies: KETOROLAC (Verified Allergy, Mild, SOB, 06/28/11) METOCLOPRAMIDE (Verified Allergy, Mild, RASH, 06/28/11) NITROGLYCERIN (Verified Allergy, Mild, SEIZURES, 06/28/11) PENICILLINS (Verified Allergy, Mild, SOB, 06/28/11) PHENYTOIN (Verified Allergy, Mild, RASH, 06/28/11) ACETAMINOPHEN (Verified Allergy, Unknown, Shortness of Breath, 08/31/16) swelling throat, difficulty breathing CODEINE (Unverified Allergy, Unknown, 10/16/16) HEPARIN (Verified Allergy, Unknown, Shortness of Breath, 08/28/16) HYDRALAZINE (Verified Allergy, Unknown, 08/28/16) HYDROCODONE (Verified Allergy, Unknown, Shortness of Breath, 08/31/16) swelling throat, difficulty breathing IBUPROFEN (Verified Allergy, Unknown, RASH, 06/28/11) IODINE (Verified Allergy, Unknown, SHOCK, 06/28/11) POLYSTYRENE SULFONATE (Verified Allergy, Unknown, RASH, 06/28/11) PROMETHAZINE (Verified Allergy, Unknown, RASH, 06/28/11) Objective Last 24 Hour Vital Signs Date Time Temp Pulse Resp B/P (MAP) Pulse Ox O2 Delivery O2 Flow Rate FiO2 11/05/16 15:55 97.4 93 21 140/66 95 Room Air 11/05/16 12:00 97.8 82 18 134/81 98 Room Air 11/05/16 09:48 86 138/78 11/05/16 09:48 138/78 11/05/16 09:47 138/78 11/05/16 09:47 86 138/78 11/05/16 08:00 97.7 86 18 138/78 97 Room Air 11/05/16 04:00 97.2 89 18 135/73 99 Room Air 11/05/16 00:00 97.5 91 20 139/81 100 Room Air 11/04/16 20:36 89 137/78 11/04/16 20:35 89 137/78 11/04/16 20:00 97.7 89 20 137/78 100 Room Air 11/04/16 18:31 146/83 Objective HEENT: normocephalic, atraumatic Respiratory/Chest: chest wall non-tender, lungs clear, normal breath sounds Cardiovascular: normal peripheral pulses, normal rate Abdomen: normal bowel sounds, no organomegaly Current Medications Medications (Trade) Dose Ordered Sig/Anant Route PRN Reason Start Time Stop Time Status Last Admin Dose Admin Al Hydroxide/Mg Hydroxide (Mylanta II) 30 ml Q6H PRN ORAL dyspepsia 11/04/16 18:30 11/29/16 18:29 Amlodipine Besylate (Norvasc) 5 mg Q12HR ORAL 11/04/16 21:00 12/04/16 10:44 11/05/16 09:47 Ceftriaxone Sodium 1 gm/ Dextrose 55 ml @ 110 mls/hr Q24H IVPB 11/05/16 15:00 11/07/16 14:59 11/05/16 16:04 Chlorhexidine Gluconate (Yessi-Hex 2%) 1 applic DAILY TOPIC 11/05/16 09:00 12/01/16 08:59 11/05/16 09:46 Clonidine HCl (Catapres TTS-2) 1 patch QWEEK TDERMAL 11/07/16 15:00 11/30/16 14:59 Clonidine HCl (Catapres) 0.1 mg BID ORAL 11/04/16 18:30 12/04/16 18:29 11/05/16 09:48 Dextrose (Dextrose 50%) STAT PRN IV Hypoglycemia 11/04/16 18:30 11/29/16 18:29 Diphenhydramine HCl (Benadryl) 25 mg Q6H PRN IVP Itching 11/04/16 18:30 11/30/16 18:29 11/05/16 09:50 Divalproex Sodium (Depakote) 500 mg EVERY 12 HOURS ORAL 11/04/16 21:00 11/30/16 08:59 11/05/16 09:48 Epoetin Rajinder (Procrit (for ESRD on dialysis)) 5,000 units MON-WED-FRI SUBQ 11/06/16 21:00 12/01/16 20:59 Hydromorphone HCl (Dilaudid) 2 mg Q4H PRN IV Severe Pain (Pain Scale 7-10) 11/04/16 18:30 11/06/16 18:29 11/05/16 14:56 Labetalol HCl (Normodyne) 200 mg Q12HR ORAL 11/04/16 21:00 11/30/16 08:59 11/05/16 09:48 Levetiracetam (Keppra) 1,000 mg Q12HR ORAL 11/04/16 21:00 11/29/16 23:29 11/05/16 09:47 Lisinopril (Prinivil) 20 mg DAILY ORAL 11/05/16 09:00 12/02/16 08:59 11/05/16 09:47 Lorazepam (Ativan 2mg/ml 1ml) 0.5 mg Q4H PRN IV For Anxiety 11/04/16 18:30 11/06/16 18:29 Mirtazapine (Remeron) 15 mg BEDTIME ORAL 11/04/16 21:00 12/01/16 20:59 11/04/16 20:37 Ondansetron HCl (Zofran) 4 mg Q6H PRN IVP Nausea & Vomiting 11/04/16 18:30 11/29/16 18:29 Pantoprazole (Protonix) 40 mg ACBREAKFAST ORAL 11/05/16 06:30 11/30/16 08:59 11/05/16 06:47 Polyethylene Glycol (Miralax) 17 gm HSPRN PRN ORAL Constipation 11/04/16 21:15 11/29/16 21:14 Vancomycin HCl (Vanco rx to dose) 1 ea DAILY PRN MISC Per rx protocol 11/04/16 18:30 12/04/16 18:29 Zolpidem Tartrate (Ambien) 5 mg HSPRN PRN ORAL Insomnia 11/04/16 21:15 11/06/16 21:14 BETHEL PACK Nov 05, 2016 16:14
[2016-11-05] MEDS ORDERED: Heparin 5000 units/ml inj INJ SCH (16:30)
--- NOTE | 2016-11-05 16:46 | General Progress Note ---
Assessment/Plan Status: stable, progressing Subjective Date patient seen: Nov 04, 2016 Constitutional: Reports: malaise, weakness Neurologic/Psychiatric: Reports: anxiety, depressed, emotional problems Allergies: Coded Allergies: KETOROLAC (Verified Allergy, Mild, SOB, 06/28/11) METOCLOPRAMIDE (Verified Allergy, Mild, RASH, 06/28/11) NITROGLYCERIN (Verified Allergy, Mild, SEIZURES, 06/28/11) PENICILLINS (Verified Allergy, Mild, SOB, 06/28/11) PHENYTOIN (Verified Allergy, Mild, RASH, 06/28/11) ACETAMINOPHEN (Verified Allergy, Unknown, Shortness of Breath, 08/31/16) swelling throat, difficulty breathing CODEINE (Unverified Allergy, Unknown, 10/16/16) HEPARIN (Verified Allergy, Unknown, Shortness of Breath, 08/28/16) HYDRALAZINE (Verified Allergy, Unknown, 08/28/16) HYDROCODONE (Verified Allergy, Unknown, Shortness of Breath, 08/31/16) swelling throat, difficulty breathing IBUPROFEN (Verified Allergy, Unknown, RASH, 06/28/11) IODINE (Verified Allergy, Unknown, SHOCK, 06/28/11) POLYSTYRENE SULFONATE (Verified Allergy, Unknown, RASH, 06/28/11) PROMETHAZINE (Verified Allergy, Unknown, RASH, 06/28/11) Objective Last 24 Hour Vital Signs Date Time Temp Pulse Resp B/P (MAP) Pulse Ox O2 Delivery O2 Flow Rate FiO2 11/05/16 15:55 97.4 93 21 140/66 95 Room Air 11/05/16 12:00 97.8 82 18 134/81 98 Room Air 11/05/16 09:48 86 138/78 11/05/16 09:48 138/78 11/05/16 09:47 138/78 11/05/16 09:47 86 138/78 11/05/16 08:00 97.7 86 18 138/78 97 Room Air 11/05/16 04:00 97.2 89 18 135/73 99 Room Air 11/05/16 00:00 97.5 91 20 139/81 100 Room Air 11/04/16 20:36 89 137/78 11/04/16 20:35 89 137/78 11/04/16 20:00 97.7 89 20 137/78 100 Room Air 11/04/16 18:31 146/83 Height (Feet): 5 Height (Inches): 10.00 Weight (Pounds): 100 General Appearance: no apparent distress, alert, cachetic Neurologic: alert, oriented x 3, responsive, depressed affect Phil Wilson M.D. Nov 05, 2016 16:46
[2016-11-05 19:49] VITALS: BP 134/84
[2016-11-06] VITALS: BP 152/97
[2016-11-06] MEDS: DiphenhydrAMINE 50mg/ml Inj IVP PRN ×3 (03:03→20:04)
[2016-11-06 04:00] VITALS: BP 145/94
[2016-11-06 08:00] VITALS: BP 138/71
[2016-11-06] MEDS: Dyna-Hex 2% Top Sol 2oz TOPIC SCH (09:00)
[2016-11-06] MEDS: Lisinopril 20mg tab ORAL SCH (09:00)
[2016-11-06] MEDS: Depakote 500mg tab ORAL SCH ×2 (11:07→21:06)
--- NOTE | 2016-11-06 11:20 | GI Progress Note ---
Assessment/Plan Problems: (1) Alkaline phosphatase elevation ICD Codes: R74.8 - Abnormal levels of other serum enzymes SNOMED: 280721556 (2) Severe malnutrition ICD Codes: E43 - Unspecified severe protein-calorie malnutrition SNOMED: 64388987 (3) Sigmoid thickening ICD Codes: K63.9 - Disease of intestine, unspecified SNOMED: 675475973 (4) Anemia ICD Codes: D64.9 - Anemia, unspecified SNOMED: 837800815 (5) GI bleed ICD Codes: K92.2 - Gastrointestinal hemorrhage, unspecified SNOMED: 80950031 Qualifiers: Qualified Codes: K92.2 - Gastrointestinal hemorrhage, unspecified (6) Elevated CEA ICD Codes: R97.0 - Elevated carcinoembryonic antigen [CEA] SNOMED: 99346815, 739131868 Status: unchanged Status Narrative Discussed with Dr. Sandoval. Assessment/Plan CP AP noncon reviewed >> constipation, HH - Equivocal wall thickening of the distal sigmoid and rectum. - Extensive mixed osteolytic and osteoblastic, mostly osteolytic, lesions of the visualized axial skeleton. These are new since these exam of 2011. 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 However, there are pathologies including metastatic disease should also be considered. CEA elevation s/p EGD SUMMARY OF FINDINGS: 1. Large hiatal hernia. 2. Minimum distal esophagitis. 3. Bile reflux. 4. Diffuse gastritis. 5. Prominent fold in the antrum, status post biopsy. 6. Sharp bend in the peripyloric region before going to the duodenum making getting into the duodenum difficult. 7. Biopsy unremarkable s/p colonoscopy SUMMARY OF FINDINGS: 1. Incomplete colonoscopy examination only of sigmoid colon, even that was very poor prep. 2. Status post random biopsy of rectosigmoid area. RECOMMENDATIONS: clear for DC per GI standpoint follow up biopsies and treat monitor H&H, prn transfusions fu labs Subjective Subjective generalized pain Objective Last 24 Hour Vital Signs Date Time Temp Pulse Resp B/P (MAP) Pulse Ox O2 Delivery O2 Flow Rate FiO2 11/06/16 08:00 97.9 84 18 138/71 100 Room Air 11/06/16 04:00 97.7 90 18 145/94 100 Room Air 11/06/16 00:00 98.8 91 18 152/97 98 Room Air 11/05/16 20:26 92 134/84 11/05/16 20:26 92 134/84 11/05/16 19:49 97.4 92 19 134/84 99 Room Air 11/05/16 17:36 140/66 11/05/16 15:55 97.4 93 21 140/66 95 Room Air 11/05/16 12:00 97.8 82 18 134/81 98 Room Air Laboratory Tests Test 11/06/16 03:00 Random Vancomycin Level 25.8 ug/mL Height (Feet): 5 Height (Inches): 10.00 Weight (Pounds): 100 General Appearance: no apparent distress, alert, thin Cardiovascular: normal rate Respiratory/Chest: normal breath sounds, no respiratory distress Abdominal Exam: normal bowel sounds, non tender, soft Ashleigh Marie N.P. Nov 06, 2016 11:20
[2016-11-06 12:00] VITALS: BP 130/90
--- NOTE | 2016-11-06 13:30 | Infectious Diseases Prog Note ---
Assessment/Plan Assessment/Plan Assesment: Chronic Pericarditis- etiology unclear, on IV abx with plan for pericardiectomy end of Nov 2016; r/o HIV, r/o TB related (no suspicion for pulm TB) -CXR: The lungs are clear Pancytopenia- thrombocytopenia worsening- r/o HIv B/l breast tenderness with disscharge per patient - no signs of cellulitis ESRD on HD Renal osteodystrophy history of CVA Anemia HTN Asthma Plan: -Continue Ceftriaxone & Vancomycin #7; upon DC pt may resume plan of AB rx followed by home health -Check HIV ag/ab and PPD -given complain of galactorrhea, TSH and Prolactin (can be done as outpatient if patient discharge) -Consider mammogram as outpatient -Monitor CBC/BMP, temperatures -To follow with his personal ID provider upon discharge for management of abx Discussed with RN and Dr Hayward. Subjective Allergies: Coded Allergies: KETOROLAC (Verified Allergy, Mild, SOB, 06/28/11) METOCLOPRAMIDE (Verified Allergy, Mild, RASH, 06/28/11) NITROGLYCERIN (Verified Allergy, Mild, SEIZURES, 06/28/11) PENICILLINS (Verified Allergy, Mild, SOB, 06/28/11) PHENYTOIN (Verified Allergy, Mild, RASH, 06/28/11) ACETAMINOPHEN (Verified Allergy, Unknown, Shortness of Breath, 08/31/16) swelling throat, difficulty breathing CODEINE (Unverified Allergy, Unknown, 10/16/16) HEPARIN (Verified Allergy, Unknown, Shortness of Breath, 08/28/16) HYDRALAZINE (Verified Allergy, Unknown, 08/28/16) HYDROCODONE (Verified Allergy, Unknown, Shortness of Breath, 08/31/16) swelling throat, difficulty breathing IBUPROFEN (Verified Allergy, Unknown, RASH, 06/28/11) IODINE (Verified Allergy, Unknown, SHOCK, 06/28/11) POLYSTYRENE SULFONATE (Verified Allergy, Unknown, RASH, 06/28/11) PROMETHAZINE (Verified Allergy, Unknown, RASH, 06/28/11) Subjective aefbrile for possible dscharge today c/o of b/l breat pain and TTP Objective Vital Signs Last 24 Hour Vital Signs Date Time Temp Pulse Resp B/P (MAP) Pulse Ox O2 Delivery O2 Flow Rate FiO2 11/06/16 12:00 98.1 94 19 130/90 99 Room Air 11/06/16 08:00 97.9 84 18 138/71 100 Room Air 11/06/16 04:00 97.7 90 18 145/94 100 Room Air 11/06/16 00:00 98.8 91 18 152/97 98 Room Air 11/05/16 20:26 92 134/84 11/05/16 20:26 92 134/84 11/05/16 19:49 97.4 92 19 134/84 99 Room Air 11/05/16 17:36 140/66 11/05/16 15:55 97.4 93 21 140/66 95 Room Air Height (Feet): 5 Height (Inches): 10.00 Weight (Pounds): 100 Objective General Appearance: no acute distress CHESt: TTP b/l breast area- no cellulitis HEENT: other - left maxillary painless slade swelling Cardiovascular: normal rate Abdomen: soft, non tender Extremities: no edema Neurologic/Psychiatric: alert, oriented x 3, responsive, other - left hemiplegia reviewed Laboratory Tests Test 11/06/16 03:00 Random Vancomycin Level 25.8 ug/mL Current Medications Medications (Trade) Dose Ordered Sig/Anant Route PRN Reason Start Time Stop Time Status Last Admin Dose Admin Al Hydroxide/Mg Hydroxide (Mylanta II) 30 ml Q6H PRN ORAL dyspepsia 11/04/16 18:30 11/29/16 18:29 Amlodipine Besylate (Norvasc) 5 mg Q12HR ORAL 11/04/16 21:00 12/04/16 10:44 11/05/16 20:26 Ceftriaxone Sodium 1 gm/ Dextrose 55 ml @ 110 mls/hr Q24H IVPB 11/05/16 15:00 11/07/16 14:59 11/05/16 16:04 Chlorhexidine Gluconate (Yessi-Hex 2%) 1 applic DAILY TOPIC 11/05/16 09:00 12/01/16 08:59 11/05/16 09:46 Clonidine HCl (Catapres TTS-2) 1 patch QWEEK TDERMAL 11/07/16 15:00 11/30/16 14:59 Clonidine HCl (Catapres) 0.1 mg BID ORAL 11/04/16 18:30 12/04/16 18:29 11/05/16 17:36 Dextrose (Dextrose 50%) STAT PRN IV Hypoglycemia 11/04/16 18:30 11/29/16 18:29 Diphenhydramine HCl (Benadryl) 25 mg Q6H PRN IVP Itching 11/04/16 18:30 11/30/16 18:29 11/06/16 03:03 Divalproex Sodium (Depakote) 500 mg EVERY 12 HOURS ORAL 11/04/16 21:00 11/30/16 08:59 11/06/16 11:07 Epoetin Rajinder (Procrit (for ESRD on dialysis)) 5,000 units SUN-SUN-SUN SUBQ 11/06/16 21:00 12/01/16 20:59 Hydromorphone HCl (Dilaudid) 2 mg Q4H PRN IV Severe Pain (Pain Scale 7-10) 11/04/16 18:30 11/06/16 18:29 11/06/16 11:04 Labetalol HCl (Normodyne) 200 mg Q12HR ORAL 11/04/16 21:00 11/30/16 08:59 11/05/16 20:26 Levetiracetam (Keppra) 1,000 mg Q12HR ORAL 11/04/16 21:00 11/29/16 23:29 11/06/16 11:07 Lisinopril (Prinivil) 20 mg DAILY ORAL 11/05/16 09:00 12/02/16 08:59 11/05/16 09:47 Lorazepam (Ativan 2mg/ml 1ml) 0.5 mg Q4H PRN IV For Anxiety 11/04/16 18:30 11/06/16 18:29 Mirtazapine (Remeron) 15 mg BEDTIME ORAL 11/04/16 21:00 12/01/16 20:59 11/05/16 20:25 Ondansetron HCl (Zofran) 4 mg Q6H PRN IVP Nausea & Vomiting 11/04/16 18:30 11/29/16 18:29 11/06/16 10:42 Pantoprazole (Protonix) 40 mg ACBREAKFAST ORAL 11/05/16 06:30 11/30/16 08:59 11/06/16 06:10 Polyethylene Glycol (Miralax) 17 gm HSPRN PRN ORAL Constipation 11/04/16 21:15 11/29/16 21:14 Vancomycin HCl (Vanco rx to dose) 1 ea DAILY PRN MISC Per rx protocol 11/04/16 18:30 12/04/16 18:29 Zolpidem Tartrate (Ambien) 5 mg HSPRN PRN ORAL Insomnia 11/04/16 21:15 11/06/16 21:14 Arielle Do M.D. Nov 06, 2016 13:30
[2016-11-06] MEDS: cefTRIAXone 1 GM in D5W 55 ML IVPB SCH (15:00)
--- NOTE | 2016-11-06 15:25 | Pulmonology Progress Note ---
Assessment/Plan Problems: (1) Chest pain (2) Hypokalemia (3) Uncontrolled hypertension (4) ESRF (end stage renal failure) (5) Left hemiplegia (6) Pericarditis (7) Severe malnutrition (8) Anemia Assessment/Plan f/u colonoscopy results symptomatic treatment HD by nephrology all notes reviewed and appreciated. check electrolytes dc planning in process Subjective ROS Limited/Unobtainable: No Allergies: Coded Allergies: KETOROLAC (Verified Allergy, Mild, SOB, 06/28/11) METOCLOPRAMIDE (Verified Allergy, Mild, RASH, 06/28/11) NITROGLYCERIN (Verified Allergy, Mild, SEIZURES, 06/28/11) PENICILLINS (Verified Allergy, Mild, SOB, 06/28/11) PHENYTOIN (Verified Allergy, Mild, RASH, 06/28/11) ACETAMINOPHEN (Verified Allergy, Unknown, Shortness of Breath, 08/31/16) swelling throat, difficulty breathing CODEINE (Unverified Allergy, Unknown, 10/16/16) HEPARIN (Verified Allergy, Unknown, Shortness of Breath, 08/28/16) HYDRALAZINE (Verified Allergy, Unknown, 08/28/16) HYDROCODONE (Verified Allergy, Unknown, Shortness of Breath, 08/31/16) swelling throat, difficulty breathing IBUPROFEN (Verified Allergy, Unknown, RASH, 06/28/11) IODINE (Verified Allergy, Unknown, SHOCK, 06/28/11) POLYSTYRENE SULFONATE (Verified Allergy, Unknown, RASH, 06/28/11) PROMETHAZINE (Verified Allergy, Unknown, RASH, 06/28/11) Objective Last 24 Hour Vital Signs Date Time Temp Pulse Resp B/P (MAP) Pulse Ox O2 Delivery O2 Flow Rate FiO2 11/06/16 14:48 Room Air 11/06/16 12:00 98.1 94 19 130/90 99 Room Air 11/06/16 08:00 97.9 84 18 138/71 100 Room Air 11/06/16 04:00 97.7 90 18 145/94 100 Room Air 11/06/16 00:00 98.8 91 18 152/97 98 Room Air 11/05/16 20:26 92 134/84 11/05/16 20:26 92 134/84 11/05/16 19:49 97.4 92 19 134/84 99 Room Air 11/05/16 17:36 140/66 11/05/16 15:55 97.4 93 21 140/66 95 Room Air Objective HEENT: normocephalic, atraumatic Respiratory/Chest: chest wall non-tender, lungs clear, normal breath sounds Cardiovascular: normal peripheral pulses, normal rate Abdomen: normal bowel sounds, no organomegaly Laboratory Tests 11/06/16 03:00: Random Vancomycin Level 25.8 Current Medications Medications (Trade) Dose Ordered Sig/Anant Route PRN Reason Start Time Stop Time Status Last Admin Dose Admin Al Hydroxide/Mg Hydroxide (Mylanta II) 30 ml Q6H PRN ORAL dyspepsia 11/04/16 18:30 11/29/16 18:29 Amlodipine Besylate (Norvasc) 5 mg Q12HR ORAL 11/04/16 21:00 12/04/16 10:44 11/05/16 20:26 Ceftriaxone Sodium 1 gm/ Dextrose 55 ml @ 110 mls/hr Q24H IVPB 11/05/16 15:00 11/07/16 14:59 11/05/16 16:04 Chlorhexidine Gluconate (Yessi-Hex 2%) 1 applic DAILY TOPIC 11/05/16 09:00 12/01/16 08:59 11/05/16 09:46 Clonidine HCl (Catapres TTS-2) 1 patch QWEEK TDERMAL 11/07/16 15:00 11/30/16 14:59 Clonidine HCl (Catapres) 0.1 mg BID ORAL 11/04/16 18:30 12/04/16 18:29 11/05/16 17:36 Dextrose (Dextrose 50%) STAT PRN IV Hypoglycemia 11/04/16 18:30 11/29/16 18:29 Diphenhydramine HCl (Benadryl) 25 mg Q6H PRN IVP Itching 11/04/16 18:30 11/30/16 18:29 11/06/16 13:55 Divalproex Sodium (Depakote) 500 mg EVERY 12 HOURS ORAL 11/04/16 21:00 11/30/16 08:59 11/06/16 11:07 Epoetin Rajinder (Procrit (for ESRD on dialysis)) 5,000 units MON-WED-FRI SUBQ 11/06/16 21:00 12/01/16 20:59 Hydromorphone HCl (Dilaudid) 2 mg Q4H PRN IV Severe Pain (Pain Scale 7-10) 11/04/16 18:30 11/06/16 18:29 11/06/16 15:10 Labetalol HCl (Normodyne) 200 mg Q12HR ORAL 11/04/16 21:00 11/30/16 08:59 11/05/16 20:26 Levetiracetam (Keppra) 1,000 mg Q12HR ORAL 11/04/16 21:00 11/29/16 23:29 11/06/16 11:07 Lisinopril (Prinivil) 20 mg DAILY ORAL 11/05/16 09:00 12/02/16 08:59 11/05/16 09:47 Lorazepam (Ativan 2mg/ml 1ml) 0.5 mg Q4H PRN IV For Anxiety 11/04/16 18:30 11/06/16 18:29 Mirtazapine (Remeron) 15 mg BEDTIME ORAL 11/04/16 21:00 12/01/16 20:59 11/05/16 20:25 Ondansetron HCl (Zofran) 4 mg Q6H PRN IVP Nausea & Vomiting 11/04/16 18:30 11/29/16 18:29 11/06/16 10:42 Pantoprazole (Protonix) 40 mg ACBREAKFAST ORAL 11/05/16 06:30 11/30/16 08:59 11/06/16 06:10 Polyethylene Glycol (Miralax) 17 gm HSPRN PRN ORAL Constipation 11/04/16 21:15 11/29/16 21:14 Vancomycin HCl (Vanco rx to dose) 1 ea DAILY PRN MISC Per rx protocol 11/04/16 18:30 12/04/16 18:29 Zolpidem Tartrate (Ambien) 5 mg HSPRN PRN ORAL Insomnia 11/04/16 21:15 11/06/16 21:14 BETHEL PACK Nov 06, 2016 15:25
--- NOTE | 2016-11-06 15:33 | Nephrology Progress Note ---
Assessment/Plan Plan HD now. Non compliant with diet and fluids. Subjective Subjective No new c/o. On Hd now Objective Objective Last 24 Hour Vital Signs Date Time Temp Pulse Resp B/P (MAP) Pulse Ox O2 Delivery O2 Flow Rate FiO2 11/06/16 14:48 Room Air 11/06/16 12:00 98.1 94 19 130/90 99 Room Air 11/06/16 08:00 97.9 84 18 138/71 100 Room Air 11/06/16 04:00 97.7 90 18 145/94 100 Room Air 11/06/16 00:00 98.8 91 18 152/97 98 Room Air 11/05/16 20:26 92 134/84 11/05/16 20:26 92 134/84 11/05/16 19:49 97.4 92 19 134/84 99 Room Air 11/05/16 17:36 140/66 11/05/16 15:55 97.4 93 21 140/66 95 Room Air Laboratory Tests 11/06/16 03:00: Random Vancomycin Level 25.8 Height (Feet): 5 Height (Inches): 10.00 Weight (Pounds): 100 Objective Cachectic. Muscle dystrophy. Mild exophthalmos. CV rr Lungs CTA Abd SNT. BS + E No CCE. L arm carpopedal deformity. ARNIE SWEET Nov 06, 2016 15:33
[2016-11-06 16:17] VITALS: BP 142/76
--- NOTE | 2016-11-06 19:40 | Cardiology Report ---
APPROVED REPORT EXAM: Two-dimensional and M-mode echocardiogram with Doppler and color Doppler. INDICATION Chest Pain Other Information Technically limited study due to pt's position. Normal left ventricular chamber size, hyperdynamic systolic function and wall motion. Left ventricular ejection fraction estimated to be 70-75 %. Severe left ventricular hypertrophy by 2-D. Small pericardial effusion along lateral wall of LV. Mild left atrial enlargement. Right cardiac chamber sizes are within normal limits. Echogenic material noted in right atrium maybe dialysis catheter. Focal aortic valve sclerosis with adequate cusp excursion. Thickened mitral valve leaflets with normal excursion. Mitral annulus and aortic root calcification. Normal pulmonic valve structure. Normal tricuspid valve structure. IVC at normal size with physiologic collapse. A color flow and spectral Doppler study was performed and revealed: Mild aortic regurgitation. Mild mitral regurgitation. Mitral diastolic velocities suggest reduced left ventricular relaxation c/w mild LV diastolic dysfunction (Grade I). Mild tricuspid regurgitation. Tricuspid systolic velocities suggests peak right ventricular systolic pressure of 41 mmHg, consistent with mild pulmonary hypertension.
[2016-11-06 20:00] VITALS: BP 124/76
[2016-11-06] MEDS: HYDROmorphone 2mg tab ORAL PRN (20:04)
[2016-11-06] MEDS ORDERED: Epogen (for ESRD on dialysis) SUBQ SCH (21:00)
[2016-11-07] VITALS: BP 128/75
[2016-11-07] MEDS: HYDROmorphone 2mg tab ORAL PRN ×2 (02:35→10:34)
[2016-11-07] MEDS: DiphenhydrAMINE 50mg/ml Inj IVP PRN ×3 (02:41→16:38)
[2016-11-07 04:00] VITALS: BP 136/79
[2016-11-07 08:00] VITALS: BP 134/75
[2016-11-07] MEDS: Dyna-Hex 2% Top Sol 2oz TOPIC SCH (08:59)
[2016-11-07] MEDS: Depakote 500mg tab ORAL SCH (09:00)
[2016-11-07] MEDS: Lisinopril 20mg tab ORAL SCH (09:00)
[2016-11-07 11:30] LABS: MEAN CORPUSCULAR HEMOGLOBIN 29.7 PG (27.0-31.0); MEAN CORPUSCULAR HGB CONC 30.7 G/DL (32.0-36.0); MEAN CORPUSCULAR VOLUME 97 FL (80-99); MEAN PLATELET VOLUME 6.9 FL (6.5-10.1); PLATELET COUNT 71 K/UL (150-450); RED BLOOD COUNT 3.27 M/UL (4.70-6.10); RED CELL DISTRIBUTION WIDTH 19.7 % (11.6-14.8); WHITE BLOOD COUNT 3.1 K/UL (4.8-10.8)
[2016-11-07 11:52] LABS: CALCIUM 8.7 mg/dL (8.6-10.2); CREATININE 6.5 mg/dL (0.7-1.2); GLOMERULAR FILTRATION RATE 12.2 mL/min (>60); MAGNESIUM 2.3 mg/dL (1.7-2.5); PHOSPHORUS 4.8 mg/dL (2.5-4.8); POTASSIUM 4.3 mEQ/L (3.4-4.9)
[2016-11-07 12:00] VITALS: BP 117/77
[2016-11-07 12:02] LABS: THYROID STIMULATING HORMONE 0.787 uIU/mL (0.300-4.500)
[2016-11-07 12:08] LABS: BAND NEUTROPHILS % (MANUAL) 0 % (0-8); BASOPHILS % (MANUAL) 1 % (0-2); EOSINOPHILS % (MANUAL) 2 % (0-3); LYMPHOCYTES % (MANUAL) 20 % (20-45); NEUTROPHILS % (MANUAL) 69 % (45-75); PLATELET ESTIMATE DECREASED; PLATELET MORPHOLOGY NORMAL; TOTAL CELLS COUNTED 100
[2016-11-07 12:09] LABS: ANISOCYTOSIS 2+; MACROCYTES 1+
[2016-11-07 12:11] LABS: TEAR DROP CELLS OCCASIONAL
--- NOTE | 2016-11-07 14:35 | GI Progress Note ---
Assessment/Plan Problems: (1) Alkaline phosphatase elevation ICD Codes: R74.8 - Abnormal levels of other serum enzymes SNOMED: 775812999 (2) Severe malnutrition ICD Codes: E43 - Unspecified severe protein-calorie malnutrition SNOMED: 72321716 (3) Sigmoid thickening ICD Codes: K63.9 - Disease of intestine, unspecified SNOMED: 812434896 (4) Anemia ICD Codes: D64.9 - Anemia, unspecified SNOMED: 507003881 (5) GI bleed ICD Codes: K92.2 - Gastrointestinal hemorrhage, unspecified SNOMED: 17084854 Qualifiers: Qualified Codes: K92.2 - Gastrointestinal hemorrhage, unspecified (6) Elevated CEA ICD Codes: R97.0 - Elevated carcinoembryonic antigen [CEA] SNOMED: 60733597, 732975839 Status: unchanged Status Narrative Discussed with Dr. Sandoval. Assessment/Plan CP AP noncon reviewed >> constipation, HH - Equivocal wall thickening of the distal sigmoid and rectum. - Extensive mixed osteolytic and osteoblastic, mostly osteolytic, lesions of the visualized axial skeleton. These are new since these exam of 2011. 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 However, there are pathologies including metastatic disease should also be considered. CEA elevation s/p EGD SUMMARY OF FINDINGS: 1. Large hiatal hernia. 2. Minimum distal esophagitis. 3. Bile reflux. 4. Diffuse gastritis. 5. Prominent fold in the antrum, status post biopsy. 6. Sharp bend in the peripyloric region before going to the duodenum making getting into the duodenum difficult. 7. Biopsy unremarkable s/p colonoscopy SUMMARY OF FINDINGS: 1. Incomplete colonoscopy examination only of sigmoid colon, even that was very poor prep. 2. Status post random biopsy of rectosigmoid area. RECOMMENDATIONS: clear for DC per GI standpoint follow up biopsies and treat stable H&H, prn transfusions fu labs Subjective Subjective generalized pain Objective Last 24 Hour Vital Signs Date Time Temp Pulse Resp B/P (MAP) Pulse Ox O2 Delivery O2 Flow Rate FiO2 11/07/16 12:00 97.7 15 117/77 100 Room Air 11/07/16 11:33 98.1 11/07/16 09:00 123/79 11/07/16 08:00 97.7 88 12 134/75 98 Room Air 11/07/16 04:00 98.1 89 20 136/79 98 Room Air 11/07/16 00:00 98.1 92 21 128/75 100 Room Air 11/06/16 21:06 96 124/76 11/06/16 21:06 96 124/76 11/06/16 20:00 97.8 96 20 124/76 100 Room Air 11/06/16 17:56 Room Air 11/06/16 16:17 96.4 104 20 142/76 99 Room Air 11/06/16 14:48 Room Air Laboratory Tests Test 11/07/16 11:00 White Blood Count 3.1 K/UL (4.8-10.8) L Red Blood Count 3.27 M/UL (4.70-6.10) L Hemoglobin 9.7 G/DL (14.2-18.0) L Hematocrit 31.6 % (42.0-52.0) L Mean Corpuscular Volume 97 FL (80-99) Mean Corpuscular Hemoglobin 29.7 PG (27.0-31.0) Mean Corpuscular Hemoglobin Concent 30.7 G/DL (32.0-36.0) L Red Cell Distribution Width 19.7 % (11.6-14.8) H Platelet Count 71 K/UL (150-450) L Mean Platelet Volume 6.9 FL (6.5-10.1) Neutrophils (%) (Auto) % (45.0-75.0) Lymphocytes (%) (Auto) % (20.0-45.0) Monocytes (%) (Auto) % (1.0-10.0) Eosinophils (%) (Auto) % (0.0-3.0) Basophils (%) (Auto) % (0.0-2.0) Differential Total Cells Counted 100 Neutrophils % (Manual) 69 % (45-75) Lymphocytes % (Manual) 20 % (20-45) Monocytes % (Manual) 8 % (1-10) Eosinophils % (Manual) 2 % (0-3) Basophils % (Manual) 1 % (0-2) Band Neutrophils 0 % (0-8) Platelet Estimate Decreased L Platelet Morphology Normal Anisocytosis 2+ Macrocytosis 1+ Tear Drop Cells Occasional Sodium Level 136 mEQ/L (135-145) Potassium Level 4.3 mEQ/L (3.4-4.9) Chloride Level 96 mEQ/L (98-107) L Carbon Dioxide Level 24 mEQ/L (20-30) Anion Gap 16 (5-15) H Blood Urea Nitrogen 40 mg/dL (7-23) H Creatinine 6.5 mg/dL (0.7-1.2) H Estimat Glomerular Filtration Rate 12.2 mL/min (>60) Glucose Level 115 mg/dL (74-106) H Calcium Level 8.7 mg/dL (8.6-10.2) Phosphorus Level 4.8 mg/dL (2.5-4.8) Magnesium Level 2.3 mg/dL (1.7-2.5) Thyroid Stimulating Hormone (TSH) 0.787 uIU/mL (0.300-4.500) Prolactin Pending Vancomycin Level Trough 18.5 ug/mL (5.0-12.0) H HIV (1&2) Antibody Rapid Negative (NEGATIVE) Height (Feet): 5 Height (Inches): 10.00 Weight (Pounds): 100 General Appearance: no apparent distress, alert, thin Cardiovascular: normal rate Respiratory/Chest: normal breath sounds, no respiratory distress Abdominal Exam: normal bowel sounds, non tender, soft Ashleigh Marie N.P. Nov 07, 2016 14:35
--- NOTE | 2016-11-07 14:50 | Nephrology Progress Note ---
Assessment/Plan Plan HD tomorrow. Subjective Subjective No new c/o. Objective Objective Last 24 Hour Vital Signs Date Time Temp Pulse Resp B/P (MAP) Pulse Ox O2 Delivery O2 Flow Rate FiO2 11/07/16 12:00 97.7 15 117/77 100 Room Air 11/07/16 11:33 98.1 11/07/16 09:00 123/79 11/07/16 08:00 97.7 88 12 134/75 98 Room Air 11/07/16 04:00 98.1 89 20 136/79 98 Room Air 11/07/16 00:00 98.1 92 21 128/75 100 Room Air 11/06/16 21:06 96 124/76 11/06/16 21:06 96 124/76 11/06/16 20:00 97.8 96 20 124/76 100 Room Air 11/06/16 17:56 Room Air 11/06/16 16:17 96.4 104 20 142/76 99 Room Air Laboratory Tests 11/07/16 11:00: White Blood Count 3.1L, Red Blood Count 3.27L, Hemoglobin 9.7L, Hematocrit 31.6L , Mean Corpuscular Volume 97, Mean Corpuscular Hemoglobin 29.7, Mean Corpuscular Hemoglobin Concent 30.7L, Red Cell Distribution Width 19.7H, Platelet Count 71L, Mean Platelet Volume 6.9, Neutrophils (%) (Auto) , Lymphocytes (%) (Auto) , Monocytes (%) (Auto) , Eosinophils (%) (Auto) , Basophils (%) (Auto) , Differential Total Cells Counted 100, Neutrophils % ( Manual) 69, Lymphocytes % (Manual) 20, Monocytes % (Manual) 8, Eosinophils % ( Manual) 2, Basophils % (Manual) 1, Band Neutrophils 0, Platelet Estimate DecreasedL, Platelet Morphology Normal, Anisocytosis 2+, Macrocytosis 1+, Tear Drop Cells Occasional, Sodium Level 136, Potassium Level 4.3, Chloride Level 96L , Carbon Dioxide Level 24, Anion Gap 16H, Blood Urea Nitrogen 40H, Creatinine 6.5H, Estimat Glomerular Filtration Rate 12.2, Glucose Level 115H, Calcium Level 8.7, Phosphorus Level 4.8, Magnesium Level 2.3, Thyroid Stimulating Hormone (TSH) 0.787, Prolactin [Pending], Vancomycin Level Trough 18.5H, HIV (1& 2) Antibody Rapid Negative Height (Feet): 5 Height (Inches): 10.00 Weight (Pounds): 100 Objective Cachectic. Muscle dystrophy. Mild exophthalmos. CV rr Lungs CTA Abd SNT. BS + E No CCE. L arm carpopedal deformity. ARNIE SWEET Nov 07, 2016 14:50
[2016-11-07 16:00] VITALS: BP 123/85
--- NOTE | 2016-11-07 18:28 | Pulmonology Progress Note ---
Assessment/Plan Problems: (1) Chest pain (2) Hypokalemia (3) Uncontrolled hypertension (4) ESRF (end stage renal failure) (5) Left hemiplegia (6) Pericarditis (7) Severe malnutrition (8) Anemia Assessment/Plan all reviewed, symptomatic treatment HD by nephrology all notes reviewed and appreciated. check electrolytes dc planning in process Subjective ROS Limited/Unobtainable: No Interval Events: no new complains Allergies: Coded Allergies: KETOROLAC (Verified Allergy, Mild, SOB, 06/28/11) METOCLOPRAMIDE (Verified Allergy, Mild, RASH, 06/28/11) NITROGLYCERIN (Verified Allergy, Mild, SEIZURES, 06/28/11) PENICILLINS (Verified Allergy, Mild, SOB, 06/28/11) PHENYTOIN (Verified Allergy, Mild, RASH, 06/28/11) ACETAMINOPHEN (Verified Allergy, Unknown, Shortness of Breath, 08/31/16) swelling throat, difficulty breathing CODEINE (Unverified Allergy, Unknown, 10/16/16) HEPARIN (Verified Allergy, Unknown, Shortness of Breath, 08/28/16) HYDRALAZINE (Verified Allergy, Unknown, 08/28/16) HYDROCODONE (Verified Allergy, Unknown, Shortness of Breath, 08/31/16) swelling throat, difficulty breathing IBUPROFEN (Verified Allergy, Unknown, RASH, 06/28/11) IODINE (Verified Allergy, Unknown, SHOCK, 06/28/11) POLYSTYRENE SULFONATE (Verified Allergy, Unknown, RASH, 06/28/11) PROMETHAZINE (Verified Allergy, Unknown, RASH, 06/28/11) Objective Last 24 Hour Vital Signs Date Time Temp Pulse Resp B/P (MAP) Pulse Ox O2 Delivery O2 Flow Rate FiO2 11/07/16 16:00 98.1 95 16 123/85 99 Room Air 11/07/16 15:37 164/101 11/07/16 12:00 97.7 15 117/77 100 Room Air 11/07/16 11:33 98.1 11/07/16 09:00 123/79 11/07/16 08:00 97.7 88 12 134/75 98 Room Air 11/07/16 04:00 98.1 89 20 136/79 98 Room Air 11/07/16 00:00 98.1 92 21 128/75 100 Room Air 11/06/16 21:06 96 124/76 11/06/16 21:06 96 124/76 11/06/16 20:00 97.8 96 20 124/76 100 Room Air Objective HEENT: normocephalic, atraumatic Respiratory/Chest: chest wall non-tender, lungs clear, normal breath sounds Cardiovascular: normal peripheral pulses, normal rate Abdomen: normal bowel sounds, no organomegaly General Appearance: WD/WN HEENT: normocephalic, atraumatic Respiratory/Chest: chest wall non-tender, lungs clear Cardiovascular: normal peripheral pulses, normal rate Abdomen: normal bowel sounds, soft, non tender Genitourinary: normal external genitalia Extremities: no cyanosis 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 Laboratory Tests 11/07/16 11:00: White Blood Count 3.1L, Red Blood Count 3.27L, Hemoglobin 9.7L, Hematocrit 31.6L , Mean Corpuscular Volume 97, Mean Corpuscular Hemoglobin 29.7, Mean Corpuscular Hemoglobin Concent 30.7L, Red Cell Distribution Width 19.7H, Platelet Count 71L, Mean Platelet Volume 6.9, Neutrophils (%) (Auto) , Lymphocytes (%) (Auto) , Monocytes (%) (Auto) , Eosinophils (%) (Auto) , Basophils (%) (Auto) , Differential Total Cells Counted 100, Neutrophils % ( Manual) 69, Lymphocytes % (Manual) 20, Monocytes % (Manual) 8, Eosinophils % ( Manual) 2, Basophils % (Manual) 1, Band Neutrophils 0, Platelet Estimate DecreasedL, Platelet Morphology Normal, Anisocytosis 2+, Macrocytosis 1+, Tear Drop Cells Occasional, Sodium Level 136, Potassium Level 4.3, Chloride Level 96L , Carbon Dioxide Level 24, Anion Gap 16H, Blood Urea Nitrogen 40H, Creatinine 6.5H, Estimat Glomerular Filtration Rate 12.2, Glucose Level 115H, Calcium Level 8.7, Phosphorus Level 4.8, Magnesium Level 2.3, Thyroid Stimulating Hormone (TSH) 0.787, Prolactin [Pending], Vancomycin Level Trough 18.5H, HIV (1& 2) Antibody Rapid Negative Current Medications Medications (Trade) Dose Ordered Sig/Anant Route PRN Reason Start Time Stop Time Status Last Admin Dose Admin Al Hydroxide/Mg Hydroxide (Mylanta II) 30 ml Q6H PRN ORAL dyspepsia 11/04/16 18:30 11/29/16 18:29 Amlodipine Besylate (Norvasc) 5 mg Q12HR ORAL 11/04/16 21:00 12/04/16 10:44 11/06/16 21:06 Chlorhexidine Gluconate (Yessi-Hex 2%) 1 applic DAILY TOPIC 11/05/16 09:00 12/01/16 08:59 11/07/16 08:59 Clonidine HCl (Catapres TTS-2) 1 patch QWEEK TDERMAL 11/07/16 15:00 11/30/16 14:59 11/07/16 15:37 Clonidine HCl (Catapres) 0.1 mg BID ORAL 11/04/16 18:30 12/04/16 18:29 11/05/16 17:36 Dextrose (Dextrose 50%) STAT PRN IV Hypoglycemia 11/04/16 18:30 11/29/16 18:29 Diphenhydramine HCl (Benadryl) 25 mg Q6H PRN IVP Itching 11/04/16 18:30 11/30/16 18:29 11/07/16 16:38 Divalproex Sodium (Depakote) 500 mg EVERY 12 HOURS ORAL 11/04/16 21:00 11/30/16 08:59 11/06/16 21:06 Epoetin Rajinder (Procrit (for ESRD on dialysis)) 5,000 units SUN-SUN-SUN SUBQ 11/06/16 21:00 12/01/16 20:59 11/06/16 21:07 Hydromorphone HCl (Dilaudid) 2 mg Q4H PRN ORAL For Pain 4-10 11/06/16 15:30 11/13/16 15:29 11/07/16 10:34 Labetalol HCl (Normodyne) 200 mg Q12HR ORAL 11/04/16 21:00 11/30/16 08:59 11/06/16 21:06 Levetiracetam (Keppra) 1,000 mg Q12HR ORAL 11/04/16 21:00 11/29/16 23:29 11/06/16 21:05 Lisinopril (Prinivil) 20 mg DAILY ORAL 11/05/16 09:00 12/02/16 08:59 11/05/16 09:47 Mirtazapine (Remeron) 15 mg BEDTIME ORAL 11/04/16 21:00 12/01/16 20:59 11/06/16 21:06 Ondansetron HCl (Zofran) 4 mg Q6H PRN IVP Nausea & Vomiting 11/04/16 18:30 11/29/16 18:29 11/07/16 16:31 Pantoprazole (Protonix) 40 mg ACBREAKFAST ORAL 11/05/16 06:30 11/30/16 08:59 11/07/16 06:01 Polyethylene Glycol (Miralax) 17 gm HSPRN PRN ORAL Constipation 11/04/16 21:15 11/29/16 21:14 Vancomycin HCl (Vanco rx to dose) 1 ea DAILY PRN MISC Per rx protocol 11/04/16 18:30 12/04/16 18:29 Vancomycin HCl 1 gm/Dextrose 275 ml @ 183.708 mls/hr ONCE ONCE IVPB 11/08/16 08:00 11/08/16 09:29 BETHLE PACK Nov 07, 2016 18:28
[2016-11-08] MEDS ORDERED: Vancomycin 1gm/D5W 275ml IVPB ONE ×2 (08:00)
--- NOTE | 2016-11-08 20:05 | General Progress Note ---
Assessment/Plan Status: stable, progressing Subjective Date patient seen: Nov 07, 2016 Constitutional: Reports: malaise Neurologic/Psychiatric: Reports: anxiety, depressed, emotional problems Allergies: Coded Allergies: KETOROLAC (Verified Allergy, Mild, SOB, 06/28/11) METOCLOPRAMIDE (Verified Allergy, Mild, RASH, 06/28/11) NITROGLYCERIN (Verified Allergy, Mild, SEIZURES, 06/28/11) PENICILLINS (Verified Allergy, Mild, SOB, 06/28/11) PHENYTOIN (Verified Allergy, Mild, RASH, 06/28/11) ACETAMINOPHEN (Verified Allergy, Unknown, Shortness of Breath, 08/31/16) swelling throat, difficulty breathing CODEINE (Unverified Allergy, Unknown, 10/16/16) HEPARIN (Verified Allergy, Unknown, Shortness of Breath, 08/28/16) HYDRALAZINE (Verified Allergy, Unknown, 08/28/16) HYDROCODONE (Verified Allergy, Unknown, Shortness of Breath, 08/31/16) swelling throat, difficulty breathing IBUPROFEN (Verified Allergy, Unknown, RASH, 06/28/11) IODINE (Verified Allergy, Unknown, SHOCK, 06/28/11) POLYSTYRENE SULFONATE (Verified Allergy, Unknown, RASH, 06/28/11) PROMETHAZINE (Verified Allergy, Unknown, RASH, 06/28/11) Objective Height (Feet): 5 Height (Inches): 10.00 Weight (Pounds): 100 General Appearance: no apparent distress, alert, cachetic Neurologic: alert, oriented x 3, responsive, depressed affect Phil Wilson M.D. Nov 08, 2016 20:05
--- NOTE | 2016-11-09 13:42 | Discharge Summary ---
Discharge Summary Hospital Course Date of Admission Oct 30, 2016 at 19:41 Date of Discharge Nov 07, 2016 at 20:10 Admitting Diagnosis CHEST PAIN HPI Jose Campo is a 30 year old male who was admitted on Oct 30, 2016 at 19:41 for Chest Pain Hospital Course [id number] Discharge Discharge Disposition Patient was discharged to Home (01) Discharge Diagnoses: Loil Martinez NP Nov 09, 2016 13:42
--- NOTE | 2016-11-10 03:45 | Discharge Summary 2 SIG ---
DATE OF ADMISSION: 10/30/2016 DATE OF DISCHARGE: 11/07/2016 CONSULTANTS: 1. Phil Wilson M.D. 2. Nitza Gaines M.D. 3. Alec Sandoval M.D. 4. Jero Oneal M.D. 5. Jorge L Nina M.D. 6. Luke Mathis M.D. Brief Hospital Course: The patient is a 30-year-old male with history of CVA, end-stage renal failure, pericarditis, and recurrent hospitalizations, who was brought in by paramedics for complaints of substernal nonradiating chest pain and during dialysis. On evaluation at ED, EKG was in normal sinus rhythm with prolonged QT. Blood work showed hypokalemia, potassium of 2.6. There was alleged GI bleed, as he had been complaining of episodes of rectal bleed. Blood pressure on arrival was also elevated almost to 200 systolic blood pressure. He was then admitted to telemetry for further evaluation. Cardiac troponins were monitored and was negative. The patient's EKG was unremarkable. He was given antihypertensives consisting of clonidine TTS-2 patch and lisinopril. He claims to have exacerbation of seizures and over the past month or two, seizures were frequent. Anticonvulsants were readjusted. He was given Depakote 500 mg and Keppra 1000 mg b.i.d. He was recommended to get extra dose of 300 mg Dilantin and 1000 mg extra dose after each hemodialysis. He has a history of pericarditis and seems to be on chronic antibiotic treatment. He was continued on IV vancomycin and Rocephin. He was continued on hemodialysis. The patient was noted to be noncompliant with diet and fluids. The patient was complaining of episodes of rectal bleed. CT of the abdomen and pelvis from previous admission showed sigmoid and rectal wall thickening. Biopsy was negative. On 11/02/2016, the patient underwent colonoscopy, however, there was poor prep and examination include only up to sigmoid colon. The patient complained of intermittent chest pains and also rapid heart rate during hemodialysis. He was given labetalol. Chest pain may be due to demand ischemia in the setting of elevated BP. Echocardiogram done showed ejection fraction 70% to 75%, RVSP 41 consistent with pulmonary hypertension. There was mild aortic regurgitation, mild mitral regurgitation, mild diastolic dysfunction, and mild tricuspid regurgitation. He had pancytopenia and thrombocytopenia. HIV screen was negative. He also complained of bilateral breast tenderness with discharge. On evaluation, there was no sign of cellulitis. TSH was negative. Prolactin was pending. He underwent psychiatric evaluation and was continued on Remeron 15 mg at bedtime. He was eventually discharged home. FINAL DIAGNOSES: 1. Chest pain possibly due to demand ischemia in setting of elevated blood pressure. 2. End-stage renal disease, on hemodialysis. 3. Hypertensive emergency. 4. Hypokalemia. 5. Severe protein-calorie malnutrition. 6. Left hemiplegia. 7. Anemia. 8. Alkaline phosphatase elevation. 9. Sigmoid thickening. 10. Gastrointestinal bleed. 11. Pericarditis. 12. Pancytopenia-thrombocytopenia, worsening. 13. Bilateral breast tenderness with discharge per patient. 14. Renal osteodystrophy. 15. Asthma. 16. Anemia. DISCHARGE DISPOSITION: The patient was discharged home. DISCHARGE MEDICATIONS: Refer to medication list. FOLLOWUP: The patient was advised to follow up with PMD in a week. Kaylah Hayward M.D. I have been assigned to dictate discharge summary on this account and I was not involved in the patient's management. Loli Martinez N.P. DR: AMY JOB#: [id number] CC: LINA
--- NOTE | 2016-11-26 18:05 | Cardiology Report ---
APPROVED REPORT EKG Measurement Heart [id number] Normal sinus rhythm Possible Left atrial enlargement Cannot rule out Inferior infarct, age undetermined Prolonged QT Abnormal ECG
== END 2016-11-07 20:10 | disposition home or self-care (01) | DRG 311 ==
LOC: EMR 19:39 → 2E 19:41 → EDBEDREQ 21:00 → 2E 11-01 14:37 → 4E 11-04 18:16
PROC: 5A1D70Z Performance of Urinary Filtration, Intermittent, Less than 6 Hours Per Day (ICD-10-PCS; principal; 2016-10-31)
PROC: 0DBN8ZX Excision of Sigmoid Colon, Via Natural or Artificial Opening Endoscopic, Diagnostic (ICD-10-PCS; 2016-11-02)
DX: I24.8 Other forms of acute ischemic heart disease (principal); E43 Unspecified severe protein-calorie malnutrition; D61.818 Other pancytopenia; R64 Cachexia; N18.6 End stage renal disease; I12.0 Hypertensive chronic kidney disease with stage 5 chronic kidney disease or end stage renal disease; I31.9 Disease of pericardium, unspecified; Z68.1 Body mass index [BMI] 19.9 or less, adult; I16.1 Hypertensive emergency; I69.959 Hemiplegia and hemiparesis following unspecified cerebrovascular disease affecting unspecified side; K62.5 Hemorrhage of anus and rectum; G40.909 Epilepsy, unspecified, not intractable, without status epilepticus; Z95.0 Presence of cardiac pacemaker; E87.6 Hypokalemia; Z99.2 Dependence on renal dialysis; J45.909 Unspecified asthma, uncomplicated; D63.1 Anemia in chronic kidney disease; D69.6 Thrombocytopenia, unspecified; N64.4 Mastodynia; N25.0 Renal osteodystrophy; R62.7 Adult failure to thrive; F41.8 Other specified anxiety disorders; R74.8 Abnormal levels of other serum enzymes; R97.0 Elevated carcinoembryonic antigen [CEA]; K44.9 Diaphragmatic hernia without obstruction or gangrene; K20.9 Esophagitis, unspecified; K29.70 Gastritis, unspecified, without bleeding
CPT/HCPCS: 36415; 71010; 80048; 80053; 80061; 80185; 80202; 80299; 82550; 82553; 83735; 83880; 84100; 84146; 84443; 84484; 85007; 85025; 85610; 85730; 86703; 87045; 87081; 87324; 93005; 93306; 93970; 94003; 94150; 99285; J2250; J2405; J8499

== ENCOUNTER 2017-01-31 18:01 | Inpatient (IN) | payer MEDICAID, MEDICARE ==
[~2017-01-31] VITALS: Ht 167.6 cm; Wt 52.2 kg
[2017-01-31 19:15] VITALS: BP 165/94
--- NOTE | 2017-01-31 19:39 | Emergency Room Report ---
History of Present Illness General Chief Complaint: Abdominal Pain Source: Patient Present Illness HPI 31-year-old male with pmhx of HTN, DM, end-stage renal disease on dialysis Sunday, last dialysis today, history of pericardial effusion status post pericardiocentesis and pericardial window performed about 6 months ago, CAD with 2 stents, CVA with left-sided weakness p/w chest pain for 2 hours. Chest pain started while after having dialysis. Localized to substernal area, no radiation to back or other areas, sharp in nature, gradual in onset, lasted 2 hours. Occurred on rest. Denies SOB. Denies palpitations, diaphoresis , n/v. Denies fever, chills, cough, abd pain. Denies trauma. Allergies: Coded Allergies: KETOROLAC (Verified Allergy, Mild, SOB, 06/28/11) METOCLOPRAMIDE (Verified Allergy, Mild, RASH, 06/28/11) NITROGLYCERIN (Verified Allergy, Mild, SEIZURES, 06/28/11) PENICILLINS (Verified Allergy, Mild, SOB, 06/28/11) PHENYTOIN (Verified Allergy, Mild, RASH, 06/28/11) ACETAMINOPHEN (Verified Allergy, Unknown, Shortness of Breath, 08/31/16) swelling throat, difficulty breathing CODEINE (Unverified Allergy, Unknown, 10/16/16) HEPARIN (Verified Allergy, Unknown, Shortness of Breath, 08/28/16) HYDRALAZINE (Verified Allergy, Unknown, 08/28/16) HYDROCODONE (Verified Allergy, Unknown, Shortness of Breath, 08/31/16) swelling throat, difficulty breathing IBUPROFEN (Verified Allergy, Unknown, RASH, 06/28/11) IODINE (Verified Allergy, Unknown, SHOCK, 06/28/11) POLYSTYRENE SULFONATE (Verified Allergy, Unknown, RASH, 06/28/11) PROMETHAZINE (Verified Allergy, Unknown, RASH, 06/28/11) Patient History Past Medical History: see triage record Past Surgical History: none Pertinent Family History: none Reviewed Nursing Documentation: PMH: Agreed, PSxH: Agreed Nursing Documentation-PMH Hx Cardiac Problems: Yes Hx Hypertension: Yes Hx Pacemaker: Yes Hx Asthma: Yes Hx Cancer: No Hx Gastrointestinal Problems: Yes Hx Dialysis: Yes - shunts both arms Hx Cerebrovascular Accident: Yes Hx Seizures: Yes Review of Systems All Other Systems: negative except mentioned in HPI Physical Exam Vital Signs Date Time Temp Pulse Resp B/P (MAP) Pulse Ox O2 Delivery O2 Flow Rate FiO2 01/31/17 18:03 98.8 114 20 165/94 99 Room Air Sp02 EP Interpretation: reviewed, normal General Appearance: other - Young male, currently does not appear to be in distress, contracted left side Head: normocephalic, atraumatic Eyes: bilateral eye normal inspection, bilateral eye PERRL, bilateral eye EOMI ENT: normal ENT inspection, normal pharynx, normal voice, moist mucus membranes Neck: normal inspection, full range of motion, supple Respiratory: normal inspection, lungs clear, normal breath sounds, no respiratory distress, no retraction, no wheezing, speaking full sentences, chest symmetrical Cardiovascular #1: other - Well-healed substernal scar on chest,RRR Cardiovascular #2: 2+ radial (R), 2+ radial (L) Gastrointestinal: normal inspection, non tender, soft, non-distended, no guarding Genitourinary: no CVA tenderness Musculoskeletal: normal inspection, back normal, normal range of motion, non- tender Neurologic: alert, oriented x3, responsive, sensory intact, other - +LUE weakness Psychiatric: normal inspection, judgement/insight normal, memory normal Skin: normal inspection, normal color, no rash, warm/dry, well hydrated, normal turgor Medical Decision Making Diagnostic Impression: Primary Impression: ACS (acute coronary syndrome) ER Course 31-year-old male, end-stage renal disease, CAD, chest pain DDX: ACS vs. CHF vs. pneumonia vs. gastritis/GERD vs. pneumothorax , pericarditis myocarditis Plan: IV access, obtain labs including troponin, EKG, CXR ER course: Patient has remained on a monitor, HD stable Pain meds given trop neg Disposition: Patient requires admission for chest pain. Due to patient's history and comorbidities, patient has increased risk of acute cardiac event. D/W hospitalist Dr. Alfaro covering for Dr Hayward Please note that this Emergency Department Report was dictated using [employer]pharm[employer] technology software, occasionally this can lead to erroneous entry secondary to interpretation by the dictation equipment. EKG Diagnostic Results EP Interpretation: Yes Rate: Tachycardic Rhythm: NSR ST Segments: No acute changes ASA given to patient: no Rhythm Strip EP Interpretation: Yes Rate: 100 Rhythm: NSR, no PVCs, no ectopy Chest X-ray CXR: Ordered: Yes 1 view Indication: Chest pain EP interpretation: Yes Interpretation: Cardiomegaly, mild pulmonary vessel congestion, pacemaker noted left chest Impression: Cardiomegaly Electronically signed by Seth Kaye MD Laboratory Tests Test 01/31/17 19:55 White Blood Count 4.5 K/UL (4.8-10.8) L Red Blood Count 3.31 M/UL (4.70-6.10) L Hemoglobin 9.6 G/DL (14.2-18.0) L Hematocrit 30.6 % (42.0-52.0) L Mean Corpuscular Volume 92 FL (80-99) Mean Corpuscular Hemoglobin 28.9 PG (27.0-31.0) Mean Corpuscular Hemoglobin Concent 31.3 G/DL (32.0-36.0) L Red Cell Distribution Width 16.0 % (11.6-14.8) H Platelet Count 134 K/UL (150-450) L Mean Platelet Volume 5.3 FL (6.5-10.1) L Neutrophils (%) (Auto) 70.9 % (45.0-75.0) Lymphocytes (%) (Auto) 18.3 % (20.0-45.0) L Monocytes (%) (Auto) 7.5 % (1.0-10.0) Eosinophils (%) (Auto) 1.8 % (0.0-3.0) Basophils (%) (Auto) 1.5 % (0.0-2.0) Prothrombin Time 10.2 SEC (9.30-11.50) Prothrombin Time INR 1.0 (0.9-1.1) PTT 29 SEC (23-33) Sodium Level 140 MMOL/L (136-145) Potassium Level 3.2 MMOL/L (3.5-5.1) L Chloride Level 103 MMOL/L (98-107) Carbon Dioxide Level 26 MMOL/L (21-32) Anion Gap 11 mmol/L (5-15) Blood Urea Nitrogen 21 mg/dL (7-18) H Creatinine 3.4 MG/DL (0.55-1.30) H Estimate Glomerular Filtration Rate 25.7 mL/min (>60) Glucose Level 105 MG/DL (74-106) Calcium Level 7.5 MG/DL (8.5-10.1) L Total Bilirubin 0.4 MG/DL (0.2-1.0) Aspartate Amino Transferase (AST) 12 U/L (15-37) L Alanine Aminotransferase (ALT) 7 U/L (12-78) L Alkaline Phosphatase 4689 U/L (46-116) H Troponin I 0.017 ng/mL (0.000-0.056) Pro-B-Type Natriuretic Peptide 1324 pg/mL (0-125) H Total Protein 6.6 G/DL (6.4-8.2) Albumin 3.0 G/DL (3.4-5.0) L Globulin 3.6 g/dL Albumin/Globulin Ratio 0.8 (1.0-2.7) L Phenytoin (Dilantin) Level 0.8 ug/mL (10-20) L Last Vital Signs Date Time Temp Pulse Resp B/P (MAP) Pulse Ox O2 Delivery O2 Flow Rate FiO2 01/31/17 18:03 98.8 114 20 165/94 99 Room Air Seth Kaye M.D. Jan 31, 2017 19:38
[2017-01-31 20:16] LABS: BASOPHILS % (AUTO) 1.5 % (0.0-2.0); EOSINOPHILS % (AUTO) 1.8 % (0.0-3.0); HEMATOCRIT 30.6 % (42.0-52.0); HEMOGLOBIN 9.6 G/DL (14.2-18.0); LYMPHOCYTES % (AUTO) 18.3 % (20.0-45.0); MEAN CORPUSCULAR VOLUME 92 FL (80-99); MONOCYTES % (AUTO) 7.5 % (1.0-10.0); NEUTROPHILS % (AUTO) 70.9 % (45.0-75.0); PLATELET COUNT 134 K/UL (150-450); RED BLOOD COUNT 3.31 M/UL (4.70-6.10); WHITE BLOOD COUNT 4.5 K/UL (4.8-10.8)
[2017-01-31 20:27] LABS: ANION GAP 11 mmol/L (5-15); BLOOD UREA NITROGEN 21 mg/dL (7-18); CALCIUM 7.5 MG/DL (8.5-10.1); CARBON DIOXIDE 26 MMOL/L (21-32); CHLORIDE 103 MMOL/L (98-107); CREATININE 3.4 MG/DL (0.55-1.30); POTASSIUM 3.2 MMOL/L (3.5-5.1); SODIUM 140 MMOL/L (136-145)
[2017-01-31] MEDS ORDERED: Morphine Sulfate 4mg/ml Inj IVP ONE (20:30)
[2017-01-31 20:39] LABS: ALANINE AMINOTRANSFERASE 7 U/L (12-78); ALBUMIN/GLOBULIN RATIO 0.8 (1.0-2.7); ALKALINE PHOSPHATASE 4689 U/L (46-116); ASPARTATE AMINO TRANSFERASE 12 U/L (15-37); BILIRUBIN,TOTAL 0.4 MG/DL (0.2-1.0)
[2017-01-31] MEDS ORDERED: LABETALOL HCL200 MG ORAL (20:43)
[2017-01-31 21:15] VITALS: BP 158/88
[2017-01-31] MEDS ORDERED: DiphenhydrAMINE 50mg/ml Inj IVP ONE (22:00)
[2017-01-31 23:15] VITALS: BP 159/81
[2017-02-01] VITALS (9 sets, daily range): BP systolic 148–165; BP diastolic 72–107
[2017-02-01] MEDS ORDERED: Morphine Sulfate 2mg/ml Inj IVP PRN (05:30)
[2017-02-01 06:13] LABS: BASOPHILS % (AUTO) 1.1 % (0.0-2.0); HEMATOCRIT 26.9 % (42.0-52.0); HEMOGLOBIN 8.6 G/DL (14.2-18.0); LYMPHOCYTES % (AUTO) 23.1 % (20.0-45.0); MEAN CORPUSCULAR VOLUME 93 FL (80-99); MONOCYTES % (AUTO) 8.7 % (1.0-10.0); NEUTROPHILS % (AUTO) 65.1 % (45.0-75.0); PLATELET COUNT 121 K/UL (150-450); RED BLOOD COUNT 2.88 M/UL (4.70-6.10); RED CELL DISTRIBUTION WIDTH 16.9 % (11.6-14.8)
[2017-02-01 06:38] LABS: ANION GAP 10 mmol/L (5-15); BLOOD UREA NITROGEN 29 mg/dL (7-18); CALCIUM 7.8 MG/DL (8.5-10.1); CARBON DIOXIDE 27 MMOL/L (21-32); CHLORIDE 104 MMOL/L (98-107); CREATININE 4.3 MG/DL (0.55-1.30); POTASSIUM 3.5 MMOL/L (3.5-5.1); SODIUM 140 MMOL/L (136-145)
[2017-02-01 06:52] LABS: ALANINE AMINOTRANSFERASE 8 U/L (12-78); ALBUMIN 2.8 G/DL (3.4-5.0); ALBUMIN/GLOBULIN RATIO 0.9 (1.0-2.7); ALKALINE PHOSPHATASE 4363 U/L (46-116); ASPARTATE AMINO TRANSFERASE 11 U/L (15-37); BILIRUBIN,TOTAL 0.4 MG/DL (0.2-1.0)
--- NOTE | 2017-02-01 08:07 | Consultation ---
History of Present Illness General Date patient seen: Feb 02, 2017 Present Illness Allergies: Coded Allergies: KETOROLAC (Verified Allergy, Mild, SOB, 06/28/11) METOCLOPRAMIDE (Verified Allergy, Mild, RASH, 06/28/11) NITROGLYCERIN (Verified Allergy, Mild, SEIZURES, 06/28/11) PENICILLINS (Verified Allergy, Mild, SOB, 06/28/11) PHENYTOIN (Verified Allergy, Mild, RASH, 06/28/11) ACETAMINOPHEN (Verified Allergy, Unknown, Shortness of Breath, 08/31/16) swelling throat, difficulty breathing CODEINE (Unverified Allergy, Unknown, 10/16/16) HEPARIN (Verified Allergy, Unknown, Shortness of Breath, 08/28/16) HYDRALAZINE (Verified Allergy, Unknown, 08/28/16) HYDROCODONE (Verified Allergy, Unknown, Shortness of Breath, 08/31/16) swelling throat, difficulty breathing IBUPROFEN (Verified Allergy, Unknown, RASH, 06/28/11) IODINE (Verified Allergy, Unknown, SHOCK, 06/28/11) POLYSTYRENE SULFONATE (Verified Allergy, Unknown, RASH, 06/28/11) PROMETHAZINE (Verified Allergy, Unknown, RASH, 06/28/11) Medication History Scheduled Clonidine Hcl* (Catapres*), 0.2 MG ORAL DAILY, (Reported) Divalproex Sodium* (Depakote*), 250 MG PO Q12HR, (Reported) Labetalol Hcl* (Normodyne*), 200 MG ORAL DAILY, (Reported) Levetiracetam (Keppra), 1,000 MG ORAL DAILY, (Reported) Nut.tx.impaired Renal Fxn,Soy (Nepro Carb Steady), PO QID, (Reported) Phenytoin Sodium Extended* (Dilantin*), 200 MG ORAL DAILY, (Reported) Discontinued Medications Labetalol Hcl* (Normodyne*), 300 MG ORAL DAILY, (Reported) Discontinued Reason: Prescription changed Lisinopril* (Lisinopril*), 10 MG ORAL DAILY, (Reported) Discontinued Reason: Pt stopped taking med Pantoprazole* (Protonix*), 40 MG ORAL, (Reported) Discontinued Reason: Pt stopped taking med Patient History Healthcare decision maker Resuscitation status Advanced Directive on File Physical Exam Last 24 Hour Vital Signs Date Time Temp Pulse Resp B/P (MAP) Pulse Ox O2 Delivery O2 Flow Rate FiO2 02/01/17 06:23 98.0 02/01/17 05:15 98.0 102 22 159/88 99 Room Air 02/01/17 03:15 98.4 104 23 165/95 99 Room Air 02/01/17 01:15 98.8 103 21 157/88 99 Room Air 01/31/17 23:15 98.4 101 18 159/81 98 Room Air 01/31/17 21:15 98.4 100 19 158/88 98 Room Air 01/31/17 21:07 98.7 01/31/17 19:15 98.8 80 20 165/94 99 Room Air 01/31/17 18:03 98.8 114 20 165/94 99 Room Air Intake and Output 01/31/17 02/01/17 19:00 07:00 Intake Total 0 ml Balance 0 ml Intake Oral 0 ml Laboratory Tests Test 01/31/17 19:55 02/01/17 06:06 White Blood Count 4.5 K/UL (4.8-10.8) L 4.0 K/UL (4.8-10.8) L Red Blood Count 3.31 M/UL (4.70-6.10) L 2.88 M/UL (4.70-6.10) L Hemoglobin 9.6 G/DL (14.2-18.0) L 8.6 G/DL (14.2-18.0) L Hematocrit 30.6 % (42.0-52.0) L 26.9 % (42.0-52.0) L Mean Corpuscular Volume 92 FL (80-99) 93 FL (80-99) Mean Corpuscular Hemoglobin 28.9 PG (27.0-31.0) 29.7 PG (27.0-31.0) Mean Corpuscular Hemoglobin Concent 31.3 G/DL (32.0-36.0) L 31.8 G/DL (32.0-36.0) L Red Cell Distribution Width 16.0 % (11.6-14.8) H 16.9 % (11.6-14.8) H Platelet Count 134 K/UL (150-450) L 121 K/UL (150-450) L Mean Platelet Volume 5.3 FL (6.5-10.1) L 5.7 FL (6.5-10.1) L Neutrophils (%) (Auto) 70.9 % (45.0-75.0) 65.1 % (45.0-75.0) Lymphocytes (%) (Auto) 18.3 % (20.0-45.0) L 23.1 % (20.0-45.0) Monocytes (%) (Auto) 7.5 % (1.0-10.0) 8.7 % (1.0-10.0) Eosinophils (%) (Auto) 1.8 % (0.0-3.0) 2.0 % (0.0-3.0) Basophils (%) (Auto) 1.5 % (0.0-2.0) 1.1 % (0.0-2.0) Prothrombin Time 10.2 SEC (9.30-11.50) Prothromb Time International Ratio 1.0 (0.9-1.1) Activated Partial Thromboplast Time 29 SEC (23-33) Sodium Level 140 MMOL/L (136-145) 140 MMOL/L (136-145) Potassium Level 3.2 MMOL/L (3.5-5.1) L 3.5 MMOL/L (3.5-5.1) Chloride Level 103 MMOL/L (98-107) 104 MMOL/L (98-107) Carbon Dioxide Level 26 MMOL/L (21-32) 27 MMOL/L (21-32) Anion Gap 11 mmol/L (5-15) 10 mmol/L (5-15) Blood Urea Nitrogen 21 mg/dL (7-18) H 29 mg/dL (7-18) H Creatinine 3.4 MG/DL (0.55-1.30) H 4.3 MG/DL (0.55-1.30) H Estimat Glomerular Filtration Rate 25.7 mL/min (>60) 19.6 mL/min (>60) Glucose Level 105 MG/DL (74-106) 100 MG/DL (74-106) Calcium Level 7.5 MG/DL (8.5-10.1) L 7.8 MG/DL (8.5-10.1) L Total Bilirubin 0.4 MG/DL (0.2-1.0) 0.4 MG/DL (0.2-1.0) Aspartate Amino Transf (AST/SGOT) 12 U/L (15-37) L 11 U/L (15-37) L Alanine Aminotransferase (ALT/SGPT) 7 U/L (12-78) L 8 U/L (12-78) L Alkaline Phosphatase 4689 U/L (46-116) H 4363 U/L (46-116) H Troponin I 0.017 ng/mL (0.000-0.056) 0.020 ng/mL (0.000-0.056) Pro-B-Type Natriuretic Peptide 1324 pg/mL (0-125) H Total Protein 6.6 G/DL (6.4-8.2) 6.0 G/DL (6.4-8.2) L Albumin 3.0 G/DL (3.4-5.0) L 2.8 G/DL (3.4-5.0) L Globulin 3.6 g/dL 3.2 g/dL Albumin/Globulin Ratio 0.8 (1.0-2.7) L 0.9 (1.0-2.7) L Phenytoin (Dilantin) Level 0.8 ug/mL (10-20) L Height (Feet): 5 Height (Inches): 9.00 Weight (Pounds): 170 Medications Current Medications Medications (Trade) Dose Ordered Sig/Anant Route PRN Reason Start Time Stop Time Status Last Admin Dose Admin Morphine Sulfate (Morphine Sulfate) 1 mg Q6H PRN IVP Moderate/Severe pain 02/01/17 05:30 02/08/17 05:29 02/01/17 05:53 Sodium Chloride 1,000 ml @ 150 mls/hr Q6H40M IV 02/01/17 05:30 03/03/17 05:29 02/01/17 05:54 Assessment/Plan Assessment/Plan (1) history of cerebrovascular accident (2) left-sided weakness (3) joint contractures (4) thalamic pain syndrome (5) chronic kidney disease on dialysis Seen dictated ANNA MATTA Feb 01, 2017 08:07
[2017-02-01] MEDS: Hydromorphone 0.5mg/0.5ml inj IVP PRN ×3 (08:50→21:03)
--- NOTE | 2017-02-01 08:55 | Diagnostic Imaging Report ---
Indication: Chest pain Technique: One view of the chest Comparison: 10/30/2016 Findings: The lungs and pleural spaces are clear. A left chest power pack with leads extending into the neck is again demonstrated. The heart is borderline enlarged. Extensive central venous and right peripheral venous stents are again noted. Surgical clips are seen in both axillae. Extensive deformity of the left arm is noted. Previously demonstrated tunneled dialysis catheter is no longer present Impression: No acute process Chronic findings as described Mild cardiomegaly
--- NOTE | 2017-02-01 13:35 | Consultation ---
Consult Note Consult Note asked to eval for dialysis management Patient states that his Nurse Educator was Dr Beltre but he and his mom do not want to be under his care any more ! been on HD for 9 years 31-year-old male with pmhx of HTN, DM, end-stage renal disease on dialysis Sunday, last dialysis today, history of pericardial effusion status post pericardiocentesis and pericardial window performed about 6 months ago, CAD with 2 stents, CVA with left-sided weakness p/w chest pain for 2 hours. Chest pain started while after having dialysis. Localized to substernal area, no radiation to back or other areas, sharp in nature, gradual in onset, lasted 2 hours. Occurred on rest. Denies SOB. Denies palpitations, diaphoresis , n/v. Denies fever, chills, cough, abd pain. Denies trauma. Hx Cardiac Problems: Yes Hx Hypertension: Yes Hx Pacemaker: Yes Hx Asthma: Yes Hx Gastrointestinal Problems: Yes Hx Dialysis: Yes - shunts both arms Hx Cerebrovascular Accident: Yes Hx Seizures: Yes Allergies: KETOROLAC (Verified Allergy, Mild, SOB, 06/28/11) METOCLOPRAMIDE (Verified Allergy, Mild, RASH, 06/28/11) NITROGLYCERIN (Verified Allergy, Mild, SEIZURES, 06/28/11) PENICILLINS (Verified Allergy, Mild, SOB, 06/28/11) PHENYTOIN (Verified Allergy, Mild, RASH, 06/28/11) ACETAMINOPHEN (Verified Allergy, Unknown, Shortness of Breath, 08/31/16) swelling throat, difficulty breathing CODEINE (Unverified Allergy, Unknown, 10/16/16) HEPARIN (Verified Allergy, Unknown, Shortness of Breath, 08/28/16) HYDRALAZINE (Verified Allergy, Unknown, 08/28/16) HYDROCODONE (Verified Allergy, Unknown, Shortness of Breath, 08/31/16) swelling throat, difficulty breathing IBUPROFEN (Verified Allergy, Unknown, RASH, 06/28/11) IODINE (Verified Allergy, Unknown, SHOCK, 06/28/11) POLYSTYRENE SULFONATE (Verified Allergy, Unknown, RASH, 06/28/11) PROMETHAZINE (Verified Allergy, Unknown, RASH, 06/28/11) Assessment/Plan - End-stage renal disease, on hemodialysis. - Chest pain with history of the same. - History of chronic pericarditis. - Status post nephrectomy. - History of cerebrovascular accident. - Anemia of chronic disease. - Hypertensive disease. - Seizure disorder. - History of gastrointestinal bleed. - Cardiac pacer Plan: schedule for HD in am resume anti Sz meds BP meds cardiology MARIAJOSE Onofre Feb 01, 2017 13:35
[2017-02-01] MEDS: DiphenhydrAMINE 50mg/ml Inj IVP PRN ×2 (14:05→21:03)
--- NOTE | 2017-02-01 16:16 | Consultation ---
Consult Note Consult Note Cardiology for Dr. Oneal full note dictated # [id number] Assessment: Acute chest pain, dyspnea in patient w/ hx of ESRD, on chronic HD, pericarditis and pericardial effusion, s/p pericardial window in 2010, CAD, w/ prev CT/stent in 2008 and prev CVA w/ L hemiparesis. He is ruling out for CT, w / neg troponins and EKGs despite prolonged symptoms of CP. CP likely non- anginal. Does not appear clinically in chf currently. Rec: ECHO to assess ? pericardial effusion . Rx chest pain symptomatically, w / analgesics. HD per Dr. Ryan. TAYLOR BECKMAN Feb 01, 2017 16:16
[2017-02-01] MEDS: Labetalol 200mg tab ORAL SCH (17:15)
--- NOTE | 2017-02-01 19:45 | Consultation ---
DATE OF CONSULTATION: 02/01/2017 PAIN MANAGEMENT CONSULTATION CONSULTING PHYSICIAN: Dodie Calix M.D. ATTENDING/REFERRING PHYSICIAN: Hong Alfaro M.D. PHYSICIAN ROVING INSPECTOR: Maricruz Dyer CHIEF COMPLAINT: Left-sided body pain. HISTORY OF PRESENT ILLNESS: This is a 31-year-old male, who is being seen in the ER of [facility] for a comprehensive pain management consultation. The patient is known patient from hospital admissions and now has been admitted into the ER going up to telemetry due to chest pain under the care of Dr. Alfaro, started on morphine 1 mg IV every 6 hours as needed with minimal pain relief. The patient also has left-sided body pain and weakness due to history of CVA causing joint contractures, numbness, and tingling in the left side of his body, diagnosed with thalamic pain syndrome. At this time, the patient also has chronic kidney disease and is on dialysis. We were consulted so that the patient would have adequate pain control while here in the hospital. REVIEW OF SYSTEMS: Denies rash, fever, chills, sweating, dizziness, drowsiness, blurred vision, sore throat, or change in his weight. No shortness of breath. No nausea, vomiting, diarrhea, or blood in stool or urine. No bowel or bladder incontinence. No dysuria. He is complaining of left-sided body pain. PHYSICAL EXAMINATION: GENERAL: Alert, awake, and oriented. VITAL SIGNS: Blood pressure 159/88, heart rate is 102, oxygen saturation 98%. LUNGS: Decreased breath sounds bilaterally. HEART: Regular. ABDOMEN: Tenderness to palpation. EXTREMITIES: No cyanosis. No clubbing. No edema. NEUROLOGICAL: Left-sided joint contractures noted with weakness exhibited in the upper and lower extremities. ASSESSMENT AND PLAN: This is a 31-year-old male with history of cerebrovascular accident, left-sided weakness, joint contractures, thalamic pain syndrome, and chronic kidney disease, on dialysis. The patient will be discontinued off the morphine and started on Dilaudid 1 mg IV every 6 hours as needed for severe pain. The patient was discussed with Dr. Calix and Dr. Calix concurred. We will follow the patient. Thank you very much for the courtesy of this consultation. Dodie Calix M.D. DWAYNE Dyer DR: BRYAN JOB#: [id number] CC: LINA
--- NOTE | 2017-02-01 20:15 | Consultation ---
DATE OF CONSULTATION: 02/01/2017 CARDIOLOGY CONSULTATION This is being done as a coverage for Dr. Jero Oneal. REQUESTING PHYSICIAN: Kaylah Hayward M.D. REASON FOR CONSULT: Chest pain. HISTORY OF PRESENT ILLNESS: The patient is a 31-year-old man with hypertension and end-stage renal disease, on chronic hemodialysis since 2005, status post bilateral nephrectomies in 2006, history of CVA in 2008 with residual left hemiparesis, and history of recurrent pericarditis status post pericardial window in 2010. He was admitted with sudden chest tightness and aching during hemodialysis. This was associated with shortness of breath. The pain had an intermittent stabbing quality to it. He initially thought this was pericarditis and tried sitting up or turning to his side to relieve symptoms, but he had no change in the chest pain. In the emergency room, he had a blood pressure of 165/94 and a pulse of 114, sinus tachycardia. He was afebrile. Initial troponin was negative. He was placed on cardiac monitoring and admitted for further treatment. Cardiology evaluation was requested. The patient states he has a history of coronary artery disease and had previous myocardial infarction and coronary stent placement in 2008 (hospitalized in [place], records not available). He also has a history of pericardial disease as noted above. PAST MEDICAL HISTORY: As noted above. History of pericarditis, previous CVA with left upper extremity hemiplegia and left lower extremity hemipareses, history of seizures, and end-stage renal disease, on hemodialysis. PAST SURGICAL HISTORY: Status post bilateral nephrectomies in 2006, status post pericardial window in 2010, status post vagal nerve stimulator for seizures in 2010, and status post right upper extremity AV fistula in August or September of 2016. MEDICATIONS: Keppra 500 mg daily, clonidine 0.1 mg q.12 hours, Depakote 250 mg p.o. q.12 hours, Dilantin 200 mg p.o. q.12 hours, labetalol 200 mg p.o. b.i.d., Protonix 40 mg p.o. b.i.d., Benadryl 25 mg p.o. q.6 hours p.r.n., and Dilaudid 1 mg IV q.6 hours p.r.n. ALLERGIES: The patient has reported multiple drug allergies including penicillin, nitroglycerin, Reglan, iodine, ibuprofen, hydrocodone, hydralazine, heparin, codeine, and acetaminophen. SOCIAL HISTORY: The patient is a nonsmoker and has no history of alcohol or drug abuse. PHYSICAL EXAMINATION: VITAL SIGNS: Blood pressure is 133/76, pulse 93 and regular, respirations 21, afebrile, and oxygen saturation 100% on room air. GENERAL: Alert, thin male, in no acute distress. HEENT: Normocephalic and atraumatic. Pupils are equal, round, and reactive to light. Sclerae anicteric. Oral mucosa are moist. NECK: Supple. There is no jugular venous distention. There are no carotid bruits. No adenopathy. CHEST: There is a nerve stimulator in the left infraclavicular area. LUNGS: Clear to auscultation bilaterally. HEART: Regular rate and rhythm. S1 and S2 with an apical 2/6 systolic ejection murmur, nonradiating. No S3, S4, or rubs. ABDOMEN: Healed midline surgical scar. Soft and nontender. No palpable mass. No organomegaly. EXTREMITIES: No cyanosis, clubbing, or edema. NEUROLOGIC: Alert and oriented x3. Left upper extremity contracture (hand), 0/5 movement of the hand and forearm, 1 to 2/5 movement of the left shoulder, and 3 to 4/5 movement of the left lower extremity. SKIN: No rashes or lesions. There is a right upper extremity AV fistula. Positive bruit. LABORATORY DATA: Hemoglobin 9.2, hematocrit 28, white blood count 3900, and platelets 105,000. Troponins negative x3. Hemoglobin 8.6, hematocrit 26.9, white blood count 4000, and platelets 121,000. Sodium 140, potassium 3.5, chloride 104, bicarb 27, BUN 29, and creatinine 4.3. ProBNP 1324. Troponin 0.017 on admission, repeat 0.02. EKG shows normal sinus rhythm at the rate of 97 beats per minute, axis +70 degrees, nonsignificant Q-waves in III and aVF, right atrial enlargement, no ST-segment or T-wave changes, and mild QT prolongation (QT corrected 480 milliseconds). Chest x-ray shows clear lung miller and borderline cardiomegaly. ASSESSMENT AND RECOMMENDATIONS: The patient is a 31-year-old man with multiple chronic medical problems as outlined above, who is admitted with chest pain and shortness of breath of uncertain etiology. He does not currently appear in congestive heart failure. BNP is unreliable in the setting of renal failure. His chest pain appears to be improving. He has had several episodes of pericarditis in the past and this may be related to pericardial disease. I will obtain an echo to assess possible pericardial effusion. We would treat his pain symptomatically with analgesics. His pain does not appear to be anginal. Nonsteroidal anti-inflammatory medication could be considered if pericarditis is documented if approved with Nephrology. Further recommendations will be made based on his clinical course and results of the echo study. He is being followed by Dr. Ryan for regular hemodialysis. Thank you for allowing me to participate in his care. Rita Stanford M.D. DR: KEILY JOB#: [id number] CC:
[2017-02-01] MEDS ORDERED: Phenytoin 100mg cap ORAL SCH (21:00)
[2017-02-01] MEDS ORDERED: cloNIDine 0.2mg Tab ORAL SCH (21:00)
[2017-02-01] MEDS ORDERED: Heparin 5000 units/ml inj SUBQ SCH (21:00)
[2017-02-01] MEDS: Phenytoin 100mg cap ORAL SCH (21:03)
--- NOTE | 2017-02-01 22:20 | Consultation ---
Consult Note Consult Note Job ID: [id number] Chavo Alfaro Feb 01, 2017 22:20
[2017-02-02] VITALS (8 sets, daily range): BP systolic 142–167; BP diastolic 64–113
[2017-02-02] MEDS: DiphenhydrAMINE 50mg/ml Inj IVP PRN ×4 (03:23→22:26)
[2017-02-02] MEDS: Hydromorphone 0.5mg/0.5ml inj IVP PRN ×4 (03:24→22:27)
--- NOTE | 2017-02-02 08:22 | Cardiology Progress Note ---
Assessment/Plan Problem List: (1) End stage chronic kidney disease (2) History of CVA (cerebrovascular accident) (3) Pericarditis Status: stable, progressing Status Narrative Chest pain is improving. He has ruled out for PR w/ negative serial troponins BP not well controlled Assessment/Plan ECHO to assess ? pericardial effusion. Analgesics prn No further cardiac w/u for ischemia recommended at this time. Continue labetalol and inc clonidine for BP control dc plan per primary team Subjective ROS Limited/Unobtainable: No Subjective Chest pain is improving. Increases w/ lying flat/ improved w/ sitting up Objective Last 24 Hour Vital Signs Date Time Temp Pulse Resp B/P (MAP) Pulse Ox O2 Delivery O2 Flow Rate FiO2 02/02/17 04:17 97.1 97 18 159/94 97 Room Air 02/02/17 04:00 92 02/02/17 00:41 96.7 89 18 142/64 97 Room Air 02/02/17 00:00 88 02/01/17 21:33 97.9 02/01/17 21:03 150/86 02/01/17 20:28 97.9 91 18 150/86 100 Room Air 02/01/17 20:00 91 02/01/17 17:15 95 157/107 02/01/17 17:05 92 02/01/17 16:30 98.8 95 16 157/107 99 Room Air 02/01/17 12:29 97.9 92 16 148/92 99 Room Air 02/01/17 12:28 89 02/01/17 11:57 93 14 148/72 100 Room Air 02/01/17 11:02 96 14 148/72 100 Room Air 02/01/17 10:19 93 17 154/76 100 Room Air General Appearance: no apparent distress, thin EENT: PERRL/EOMI Neck: no JVD Rhythm: NSR Cardiovascular: normal rate, regular rhythm, systolic murmur - i/vi ROBERT along LSB, other - no pericardial rub Respiratory/Chest: lungs clear, normal breath sounds Abdomen: non tender, soft Extremities: non-tender Neurologic: oriented x 3, normal mood/affect, other - L hemiplegia. L hand/ forearm contracture Intake and Output 02/01/17 02/02/17 19:00 07:00 Output Total 100 ml Balance -100 ml Output Urine Total 100 ml TAYLOR BECKMAN Feb 02, 2017 08:22
--- NOTE | 2017-02-02 08:46 | History and Physical Report ---
DATE OF ADMISSION: 01/31/2017 REASON FOR ADMISSION: Chest pain. 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 gradual onset in nature, sharp, and I have consulted . INTERIM CARE: As noted above. PAST MEDICAL HISTORY: As noted above. PAST SURGICAL HISTORY: As noted above. ALLERGIES: Include Reglan, nitroglycerin, penicillin, heparin, hydralazine . FAMILY HISTORY: Noncontributory. REVIEW OF SYSTEMS: Twelve-point review of systems is otherwise negative. PHYSICAL EXAMINATION: GENERAL: No acute distress. VITAL SIGNS: Reviewed. PULMONARY: Decreased breath sounds. CARDIOVASCULAR: Regular rate. No S3 or S4. ABDOMEN: Soft, nontender, and nondistended. EXTREMITIES: 1+ edema. LABORATORY DATA: WBC is 4, hemoglobin 8.6, hematocrit 27.0, and platelet count 121,000. BUN is 29, creatinine 4.3. ASSESSMENT AND RECOMMENDATIONS: 1. . 2. End-stage renal disease. Continue to closely monitor. 3. . 4. Anemia of chronic kidney disease. Continue to monitor. 5. Chest pain. Rule out ACS, can have CHF. At this time, BNP goal. Chest pain improving, has had several episodes of pericarditis in the past, potentially related to that. Continue , continue NSAIDs. 6. Hypertension . 7. Diabetes mellitus. . I appreciate the market intelligence consultant care. Chavo Alfaro M.D. DR: SURAJ JOB#: [id number] CC:
--- NOTE | 2017-02-02 09:11 | General Progress Note ---
Assessment/Plan Assessment/Plan (1) history of cerebrovascular accident (2) left-sided weakness (3) joint contractures (4) thalamic pain syndrome (5) chronic kidney disease on dialysis We will continue Dilaudid D/w Dr. Calix and he concurred. Subjective Date patient seen: Feb 02, 2017 Time patient seen: 07:00 - am Allergies: Coded Allergies: KETOROLAC (Verified Allergy, Mild, SOB, 06/28/11) METOCLOPRAMIDE (Verified Allergy, Mild, RASH, 06/28/11) NITROGLYCERIN (Verified Allergy, Mild, SEIZURES, 06/28/11) PENICILLINS (Verified Allergy, Mild, SOB, 06/28/11) PHENYTOIN (Verified Allergy, Mild, RASH, 06/28/11) ACETAMINOPHEN (Verified Allergy, Unknown, Shortness of Breath, 08/31/16) swelling throat, difficulty breathing CODEINE (Unverified Allergy, Unknown, 10/16/16) HEPARIN (Verified Allergy, Unknown, Shortness of Breath, 08/28/16) HYDRALAZINE (Verified Allergy, Unknown, 08/28/16) HYDROCODONE (Verified Allergy, Unknown, Shortness of Breath, 08/31/16) swelling throat, difficulty breathing IBUPROFEN (Verified Allergy, Unknown, RASH, 06/28/11) IODINE (Verified Allergy, Unknown, SHOCK, 06/28/11) POLYSTYRENE SULFONATE (Verified Allergy, Unknown, RASH, 06/28/11) PROMETHAZINE (Verified Allergy, Unknown, RASH, 06/28/11) Subjective REVIEW OF SYSTEMS: Denies rash, fever, chills, sweating, dizziness, drowsiness, blurred vision, sore throat, or change in his weight. No shortness of breath. No nausea, vomiting, diarrhea, or blood in stool or urine. No bowel or bladder incontinence. No dysuria. He is complaining of left-sided body pain. SUBJECTIVE: Pain is stable reduced from a 7/10 to a 3/10. He has no new complaints using the Dilaudid as needed. Objective Last 24 Hour Vital Signs Date Time Temp Pulse Resp B/P (MAP) Pulse Ox O2 Delivery O2 Flow Rate FiO2 02/02/17 04:17 97.1 97 18 159/94 97 Room Air 02/02/17 04:00 92 02/02/17 00:41 96.7 89 18 142/64 97 Room Air 02/02/17 00:00 88 02/01/17 21:33 97.9 02/01/17 21:03 150/86 02/01/17 20:28 97.9 91 18 150/86 100 Room Air 02/01/17 20:00 91 02/01/17 17:15 95 157/107 02/01/17 17:05 92 02/01/17 16:30 98.8 95 16 157/107 99 Room Air 02/01/17 12:29 97.9 92 16 148/92 99 Room Air 02/01/17 12:28 89 02/01/17 11:57 93 14 148/72 100 Room Air 02/01/17 11:02 96 14 148/72 100 Room Air 02/01/17 10:19 93 17 154/76 100 Room Air Intake and Output 02/01/17 02/02/17 19:00 07:00 Output Total 100 ml Balance -100 ml Output Urine Total 100 ml Height (Feet): 5 Height (Inches): 9.00 Weight (Pounds): 170 Objective GENERAL: Alert, awake, and oriented. LUNGS: Decreased breath sounds bilaterally. HEART: Regular. ABDOMEN: Tenderness to palpation. EXTREMITIES: No cyanosis. No clubbing. No edema. NEUROLOGICAL: Left-sided joint contractures noted with weakness exhibited in the upper and lower extremities. ANNA MATTA Feb 02, 2017 09:11
[2017-02-02] MEDS: Labetalol 200mg tab ORAL SCH ×2 (09:13→14:30)
[2017-02-02] MEDS: Phenytoin 100mg cap ORAL SCH (09:13)
--- NOTE | 2017-02-02 10:49 | Nephrology Progress Note ---
Assessment/Plan Assessment - End-stage renal disease, on hemodialysis. - Chest pain with history of the same. - History of chronic pericarditis. - Status post nephrectomy. - History of cerebrovascular accident. - Anemia of chronic disease. - Hypertensive disease. - Seizure disorder. - History of gastrointestinal bleed. - Cardiac pacer Plan Plan: todays labs pending schedule for HD in am M-W Fr resume anti Sz meds BP meds adjustment cardiology eval Subjective ROS Limited/Unobtainable: No Constitutional: Reports: malaise Objective Objective Last 24 Hour Vital Signs Date Time Temp Pulse Resp B/P (MAP) Pulse Ox O2 Delivery O2 Flow Rate FiO2 02/02/17 09:45 97.1 02/02/17 09:13 97 159/94 02/02/17 04:17 97.1 97 18 159/94 97 Room Air 02/02/17 04:00 92 02/02/17 00:41 96.7 89 18 142/64 97 Room Air 02/02/17 00:00 88 02/01/17 21:03 150/86 02/01/17 20:28 97.9 91 18 150/86 100 Room Air 02/01/17 20:00 91 02/01/17 17:15 95 157/107 02/01/17 17:05 92 02/01/17 16:30 98.8 95 16 157/107 99 Room Air 02/01/17 12:29 97.9 92 16 148/92 99 Room Air 02/01/17 12:28 89 02/01/17 11:57 93 14 148/72 100 Room Air 02/01/17 11:02 96 14 148/72 100 Room Air Intake and Output 02/01/17 02/02/17 19:00 07:00 Output Total 100 ml Balance -100 ml Output Urine Total 100 ml Height (Feet): 5 Height (Inches): 9.00 Weight (Pounds): 170 General Appearance: no apparent distress Cardiovascular: regular rhythm Respiratory/Chest: decreased breath sounds Abdomen: soft Objective no change MARIAJOSE LI Feb 02, 2017 10:49
[2017-02-02] MEDS ORDERED: DiphenhydrAMINE 50mg/ml Inj IVP PRN (13:30)
[2017-02-02] MEDS ORDERED: Labetalol 200mg tab ORAL SCH ×2 (14:00)
[2017-02-02] MEDS ORDERED: Hydromorphone 0.5mg/0.5ml inj IVP PRN (14:30)
[2017-02-02] MEDS ORDERED: Phenytoin 100mg cap ORAL SCH (21:00)
[2017-02-02 21:42] LABS: HEMATOCRIT 26.2 % (42.0-52.0); HEMOGLOBIN 7.9 G/DL (14.2-18.0); MEAN CORPUSCULAR VOLUME 94 FL (80-99); PLATELET COUNT 98 K/UL (150-450); WHITE BLOOD COUNT 3.6 K/UL (4.8-10.8)
[2017-02-02 21:43] LABS: LYMPHOCYTES % (AUTO) 26.5 % (20.0-45.0); MONOCYTES % (AUTO) 5.4 % (1.0-10.0); NEUTROPHILS % (AUTO) 66.1 % (45.0-75.0)
[2017-02-02 21:44] LABS: BASOPHILS % (AUTO) 1.1 % (0.0-2.0)
[2017-02-02 22:07] LABS: % IRON SATURATION 47 % (15-50); IRON 63 ug/dL (50-175); TOTAL IRON BINDING CAPACITY 133 ug/dL (250-450)
[2017-02-02 22:12] LABS: ALANINE AMINOTRANSFERASE 6 U/L (12-78); ALBUMIN 2.7 G/DL (3.4-5.0); ALBUMIN/GLOBULIN RATIO 0.9 (1.0-2.7); ALKALINE PHOSPHATASE 4144 U/L (46-116); ANION GAP 11 mmol/L (5-15); ASPARTATE AMINO TRANSFERASE 14 U/L (15-37); BILIRUBIN,TOTAL 0.4 MG/DL (0.2-1.0); BLOOD UREA NITROGEN 42 mg/dL (7-18); CARBON DIOXIDE 27 MMOL/L (21-32); CHLORIDE 104 MMOL/L (98-107); CHOLESTEROL 130 MG/DL (< 200); CREATINE KINASE 59 U/L (26-308); CREATININE 5.1 MG/DL (0.55-1.30); GAMMA GLUTAMYL TRANSPEPTIDASE 80 U/L (5-85); HDL CHOLESTEROL 31 MG/DL (40-60); PHOSPHORUS 3.3 MG/DL (2.5-4.9); SODIUM 141 MMOL/L (136-145); TRIGLYCERIDES 157 MG/DL (30-150)
--- NOTE | 2017-02-02 22:18 | General Progress Note ---
Assessment/Plan Assessment/Plan ASSESSMENT AND RECOMMENDATIONS: 1.Pancytopenia. --> anemia work up pending, watch count, transfuse if below 7 --> plt goal above 20K --> will obtain US of the abdomen 2. End-stage renal disease. On hemodialysis Continue to closely monitor. 4. Anemia of chronic kidney disease. Continue to monitor. 5. Chest pain. Cardiology service following 6. Hypertension 7. S/p nephrectomy 8. History of pericarditis 9. Continue heparin subcutaneous for DVT prophylaxis Subjective Allergies: Coded Allergies: KETOROLAC (Verified Allergy, Mild, SOB, 06/28/11) METOCLOPRAMIDE (Verified Allergy, Mild, RASH, 06/28/11) NITROGLYCERIN (Verified Allergy, Mild, SEIZURES, 06/28/11) PENICILLINS (Verified Allergy, Mild, SOB, 06/28/11) PHENYTOIN (Verified Allergy, Mild, RASH, 06/28/11) ACETAMINOPHEN (Verified Allergy, Unknown, Shortness of Breath, 08/31/16) swelling throat, difficulty breathing CODEINE (Unverified Allergy, Unknown, 10/16/16) HEPARIN (Verified Allergy, Unknown, Shortness of Breath, 08/28/16) HYDRALAZINE (Verified Allergy, Unknown, 08/28/16) HYDROCODONE (Verified Allergy, Unknown, Shortness of Breath, 08/31/16) swelling throat, difficulty breathing IBUPROFEN (Verified Allergy, Unknown, RASH, 06/28/11) IODINE (Verified Allergy, Unknown, SHOCK, 06/28/11) POLYSTYRENE SULFONATE (Verified Allergy, Unknown, RASH, 06/28/11) PROMETHAZINE (Verified Allergy, Unknown, RASH, 06/28/11) All Systems: reviewed and negative except above Subjective afebrile, no bleeding reported Objective Last 24 Hour Vital Signs Date Time Temp Pulse Resp B/P (MAP) Pulse Ox O2 Delivery O2 Flow Rate FiO2 02/02/17 19:39 98.1 92 20 160/113 100 Room Air 02/02/17 16:09 97.7 95 15 167/89 100 Room Air 02/02/17 14:30 95 167/89 02/02/17 14:30 167/89 02/02/17 12:00 97.7 90 19 160/100 100 Room Air 02/02/17 12:00 90 02/02/17 09:45 97.1 02/02/17 09:13 97 159/94 02/02/17 08:00 97.8 95 19 167/101 100 Room Air 02/02/17 08:00 92 02/02/17 04:17 97.1 97 18 159/94 97 Room Air 02/02/17 04:00 92 02/02/17 00:41 96.7 89 18 142/64 97 Room Air 02/02/17 00:00 88 Intake and Output 02/01/17 02/02/17 19:00 07:00 Output Total 100 ml Balance -100 ml Output Urine Total 100 ml Laboratory Tests 02/02/17 21:00: White Blood Count 3.6L, Red Blood Count 2.80L, Hemoglobin 7.9L, Hematocrit 26.2L , Mean Corpuscular Volume 94, Mean Corpuscular Hemoglobin 28.3, Mean Corpuscular Hemoglobin Concent 30.2L, Red Cell Distribution Width 17.0H, Platelet Count 98L, Mean Platelet Volume 4.9L, Neutrophils (%) (Auto) 66.1, Lymphocytes (%) (Auto) 26.5, Monocytes (%) (Auto) 5.4, Eosinophils (%) (Auto) 4.0H, Basophils (%) (Auto) 1.1, Sodium Level [Pending], Potassium Level [Pending ], Chloride Level [Pending], Carbon Dioxide Level [Pending], Blood Urea Nitrogen [Pending], Creatinine [Pending], Estimat Glomerular Filtration Rate [ Pending], Glucose Level [Pending], Hemoglobin A1c 5.1, Uric Acid [Pending], Calcium Level [Pending], Phosphorus Level [Pending], Magnesium Level [Pending], Iron Level 63, Total Iron Binding Capacity 133L, Percent Iron Saturation 47, Unsaturated Iron Binding 70L, Ferritin [Pending], Total Bilirubin [Pending], Gamma Glutamyl Transpeptidase [Pending], Aspartate Amino Transf (AST/SGOT) [ Pending], Alanine Aminotransferase (ALT/SGPT) [Pending], Alkaline Phosphatase [ Pending], Total Creatine Kinase [Pending], Troponin I [Pending], C-Reactive Protein, Quantitative [Pending], Pro-B-Type Natriuretic Peptide [Pending], Total Protein [Pending], Albumin [Pending], Globulin [Pending], Triglycerides Level [Pending], Cholesterol Level [Pending], LDL Cholesterol [Pending], HDL Cholesterol [Pending], Cholesterol/HDL Ratio [Pending], Vitamin B12 Level [ Pending], Folate [Pending], Thyroid Stimulating Hormone (TSH) [Pending], Phenytoin (Dilantin) Level < 0.4L, Valproic Acid (Depakene) Level [Pending] Height (Feet): 5 Height (Inches): 9.00 Weight (Pounds): 170 General Appearance: no apparent distress EENT: normal ENT inspection Neck: normal alignment Cardiovascular: normal peripheral pulses Respiratory/Chest: chest wall non-tender, no respiratory distress Extremities: non-tender Chavo Alfaro Feb 02, 2017 22:18
[2017-02-02 22:40] LABS: FERRITIN > 2000 NG/ML (8-388)
[2017-02-03] VITALS (7 sets, daily range): BP systolic 125–156; BP diastolic 62–89
[2017-02-03] MEDS: Labetalol 200mg tab ORAL SCH ×4 (00:20→21:08)
[2017-02-03] MEDS: Phenytoin 100mg cap ORAL SCH ×3 (00:24→21:08)
[2017-02-03] MEDS: Hydromorphone 0.5mg/0.5ml inj IVP PRN ×3 (04:29→18:42)
[2017-02-03] MEDS: DiphenhydrAMINE 50mg/ml Inj IVP PRN ×3 (04:29→18:48)
--- NOTE | 2017-02-03 11:41 | Nephrology Progress Note ---
Assessment/Plan Problem List: (1) End stage chronic kidney disease (2) Pericarditis (3) Left hemiplegia Assessment - End-stage renal disease, on hemodialysis. - Chest pain with history of the same. - History of chronic pericarditis. - Status post nephrectomy. - History of cerebrovascular accident. - Anemia of chronic disease. - Hypertensive disease. - Seizure disorder. - History of gastrointestinal bleed. - Cardiac pacer Plan Plan: schedule for HD in am M-W Fr resume anti Sz meds BP meds adjustment cardiology eval Subjective ROS Limited/Unobtainable: No Constitutional: Reports: malaise Objective Objective Last 24 Hour Vital Signs Date Time Temp Pulse Resp B/P (MAP) Pulse Ox O2 Delivery O2 Flow Rate FiO2 02/03/17 08:40 98.1 99 20 125/71 99 Room Air 02/03/17 05:56 97 149/89 02/03/17 05:56 149/89 02/03/17 04:59 97.3 02/03/17 03:51 98 Room Air 02/03/17 03:37 97.3 97 20 149/89 98 Room Air 02/03/17 00:24 147/89 02/03/17 00:20 101 147/89 02/03/17 00:15 Room Air 02/03/17 00:12 Room Air 02/03/17 00:11 97.5 101 20 147/89 97 Room Air 02/02/17 23:45 97 Room Air 02/02/17 23:45 Room Air 02/02/17 23:45 Room Air 02/02/17 23:45 Room Air 02/02/17 23:45 Room Air 02/02/17 23:43 97.5 101 20 147/89 97 Room Air 02/02/17 20:30 98.1 92 20 160/113 Room Air 02/02/17 20:30 Room Air 02/02/17 20:00 100 Room Air 02/02/17 19:39 98.1 92 20 160/113 100 Room Air 02/02/17 16:09 97.7 95 15 167/89 100 Room Air 02/02/17 14:30 95 167/89 02/02/17 14:30 167/89 02/02/17 12:00 97.7 90 19 160/100 100 Room Air 02/02/17 12:00 90 Intake and Output 02/02/17 02/03/17 19:00 07:00 Intake Total 800 ml 800 ml Output Total 101 ml Balance 800 ml 699 ml Intake Oral 800 ml 800 ml Output Urine Total 100 ml Hemodialysis UF 1 ml # Bowel Movements 2 Laboratory Tests 02/02/17 21:00: White Blood Count 3.6L, Red Blood Count 2.80L, Hemoglobin 7.9L, Hematocrit 26.2L , Mean Corpuscular Volume 94, Mean Corpuscular Hemoglobin 28.3, Mean Corpuscular Hemoglobin Concent 30.2L, Red Cell Distribution Width 17.0H, Platelet Count 98L, Mean Platelet Volume 4.9L, Neutrophils (%) (Auto) 66.1, Lymphocytes (%) (Auto) 26.5, Monocytes (%) (Auto) 5.4, Eosinophils (%) (Auto) 4.0H, Basophils (%) (Auto) 1.1, Sodium Level 141, Potassium Level 4.0, Chloride Level 104, Carbon Dioxide Level 27, Anion Gap 11, Blood Urea Nitrogen 42H, Creatinine 5.1H, Estimat Glomerular Filtration Rate 16.1, Glucose Level 88, Hemoglobin A1c 5.1, Uric Acid 3.5, Calcium Level 7.0L, Phosphorus Level 3.3, Magnesium Level 2.4, Iron Level 63, Total Iron Binding Capacity 133L, Percent Iron Saturation 47, Unsaturated Iron Binding 70L, Ferritin > 2000H, Total Bilirubin 0.4, Gamma Glutamyl Transpeptidase 80, Aspartate Amino Transf (AST/ SGOT) 14L, Alanine Aminotransferase (ALT/SGPT) 6L, Alkaline Phosphatase 4144H, Total Creatine Kinase 59, Troponin I 0.017, C-Reactive Protein, Quantitative 0.9 , Pro-B-Type Natriuretic Peptide 1906H, Total Protein 5.7L, Albumin 2.7L, Globulin 3.0, Albumin/Globulin Ratio 0.9L, Triglycerides Level 157H, Cholesterol Level 130, LDL Cholesterol 78, HDL Cholesterol 31L, Cholesterol/HDL Ratio 4.2, Vitamin B12 Level 747, Folate 16.2, Thyroid Stimulating Hormone (TSH ) 1.130, Phenytoin (Dilantin) Level < 0.4L, Valproic Acid (Depakene) Level 29L Height (Feet): 5 Height (Inches): 9.00 Weight (Pounds): 170 General Appearance: no apparent distress Cardiovascular: normal rate Respiratory/Chest: lungs clear Neurologic: other - left doron Objective no change MARIAJOSE LI Feb 03, 2017 11:40
--- NOTE | 2017-02-03 20:07 | General Progress Note ---
Assessment/Plan Assessment/Plan ASSESSMENT AND RECOMMENDATIONS: 1.Pancytopenia. --> anemia work up pending, watch count, transfuse if below 7 --> plt goal above 20K --> will obtain US of the abdomen , pnding 2. End-stage renal disease. On hemodialysis Continue to closely monitor. 4. Anemia of chronic kidney disease. Continue to monitor. 5. Chest pain. Cardiology service following 6. Hypertension 7. S/p nephrectomy 8. History of pericarditis 9. Continue heparin subcutaneous for DVT prophylaxis Subjective Allergies: Coded Allergies: KETOROLAC (Verified Allergy, Mild, SOB, 06/28/11) METOCLOPRAMIDE (Verified Allergy, Mild, RASH, 06/28/11) NITROGLYCERIN (Verified Allergy, Mild, SEIZURES, 06/28/11) PENICILLINS (Verified Allergy, Mild, SOB, 06/28/11) PHENYTOIN (Verified Allergy, Mild, RASH, 06/28/11) ACETAMINOPHEN (Verified Allergy, Unknown, Shortness of Breath, 08/31/16) swelling throat, difficulty breathing CODEINE (Unverified Allergy, Unknown, 10/16/16) HEPARIN (Verified Allergy, Unknown, Shortness of Breath, 08/28/16) HYDRALAZINE (Verified Allergy, Unknown, 08/28/16) HYDROCODONE (Verified Allergy, Unknown, Shortness of Breath, 08/31/16) swelling throat, difficulty breathing IBUPROFEN (Verified Allergy, Unknown, RASH, 06/28/11) IODINE (Verified Allergy, Unknown, SHOCK, 06/28/11) POLYSTYRENE SULFONATE (Verified Allergy, Unknown, RASH, 06/28/11) PROMETHAZINE (Verified Allergy, Unknown, RASH, 06/28/11) All Systems: reviewed and negative except above Subjective afebrile, no bleeding reported Objective Last 24 Hour Vital Signs Date Time Temp Pulse Resp B/P (MAP) Pulse Ox O2 Delivery O2 Flow Rate FiO2 02/03/17 19:12 98.1 02/03/17 16:21 98.1 94 18 148/78 100 Room Air 02/03/17 14:47 104 153/96 02/03/17 13:08 99.3 104 20 134/62 100 Room Air 02/03/17 12:23 99.3 104 20 134/62 100 Room Air 02/03/17 08:40 98.1 99 20 125/71 99 Room Air 02/03/17 05:56 97 149/89 02/03/17 05:56 149/89 02/03/17 03:51 98 Room Air 02/03/17 03:37 97.3 97 20 149/89 98 Room Air 02/03/17 00:24 147/89 02/03/17 00:20 101 147/89 02/03/17 00:15 Room Air 02/03/17 00:12 Room Air 02/03/17 00:11 97.5 101 20 147/89 97 Room Air 02/02/17 23:45 97 Room Air 02/02/17 23:45 Room Air 02/02/17 23:45 Room Air 02/02/17 23:45 Room Air 02/02/17 23:45 Room Air 02/02/17 23:43 97.5 101 20 147/89 97 Room Air 02/02/17 20:30 98.1 92 20 160/113 Room Air 02/02/17 20:30 Room Air Intake and Output 02/02/17 02/03/17 19:00 07:00 Intake Total 800 ml 800 ml Output Total 101 ml Balance 800 ml 699 ml Intake Oral 800 ml 800 ml Output Urine Total 100 ml Hemodialysis UF 1 ml # Bowel Movements 2 Laboratory Tests 02/02/17 21:00: White Blood Count 3.6L, Red Blood Count 2.80L, Hemoglobin 7.9L, Hematocrit 26.2L , Mean Corpuscular Volume 94, Mean Corpuscular Hemoglobin 28.3, Mean Corpuscular Hemoglobin Concent 30.2L, Red Cell Distribution Width 17.0H, Platelet Count 98L, Mean Platelet Volume 4.9L, Neutrophils (%) (Auto) 66.1, Lymphocytes (%) (Auto) 26.5, Monocytes (%) (Auto) 5.4, Eosinophils (%) (Auto) 4.0H, Basophils (%) (Auto) 1.1, Sodium Level 141, Potassium Level 4.0, Chloride Level 104, Carbon Dioxide Level 27, Anion Gap 11, Blood Urea Nitrogen 42H, Creatinine 5.1H, Estimat Glomerular Filtration Rate 16.1, Glucose Level 88, Hemoglobin A1c 5.1, Uric Acid 3.5, Calcium Level 7.0L, Phosphorus Level 3.3, Magnesium Level 2.4, Iron Level 63, Total Iron Binding Capacity 133L, Percent Iron Saturation 47, Unsaturated Iron Binding 70L, Ferritin > 2000H, Total Bilirubin 0.4, Gamma Glutamyl Transpeptidase 80, Aspartate Amino Transf (AST/ SGOT) 14L, Alanine Aminotransferase (ALT/SGPT) 6L, Alkaline Phosphatase 4144H, Total Creatine Kinase 59, Troponin I 0.017, C-Reactive Protein, Quantitative 0.9 , Pro-B-Type Natriuretic Peptide 1906H, Total Protein 5.7L, Albumin 2.7L, Globulin 3.0, Albumin/Globulin Ratio 0.9L, Triglycerides Level 157H, Cholesterol Level 130, LDL Cholesterol 78, HDL Cholesterol 31L, Cholesterol/HDL Ratio 4.2, Vitamin B12 Level 747, Folate 16.2, Thyroid Stimulating Hormone (TSH ) 1.130, Phenytoin (Dilantin) Level < 0.4L, Valproic Acid (Depakene) Level 29L Height (Feet): 5 Height (Inches): 9.00 Weight (Pounds): 170 General Appearance: no apparent distress EENT: normal ENT inspection Neck: normal alignment Cardiovascular: normal peripheral pulses Respiratory/Chest: chest wall non-tender Edema: trace edema 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
[2017-02-04] VITALS (7 sets, daily range): BP systolic 120–178; BP diastolic 70–96
[2017-02-04] MEDS: DiphenhydrAMINE 50mg/ml Inj IVP PRN ×4 (00:35→20:11)
[2017-02-04] MEDS: Hydromorphone 0.5mg/0.5ml inj IVP PRN ×4 (00:36→20:11)
[2017-02-04] MEDS: Labetalol 200mg tab ORAL SCH ×3 (06:00→23:11)
--- NOTE | 2017-02-04 08:24 | Diagnostic Imaging Report ---
Indication: Abnormal labs. Patient on dialysis Technique: US ABD Complete. Multiplanar grayscale and color Doppler imaging of the abdomen. Comparison: Correlation made to noncontrast CT of the abdomen and pelvis 10/23/2016 Findings: Imaged portions of the pancreatic head are unremarkable in appearance. Body and tail are not seen. Liver is normal in size with the right lobe measuring approximately 16 cm in length. No focal hepatic mass lesion is appreciated sonographically. Common bile duct is normal in caliber, measuring 3.6 mm. Main portal vein is patent with normal direction of flow. No definite cholelithiasis identified. Gallbladder wall within normal limits measuring 2.3 mm in thickness. No pericholecystic fluid. Bilateral kidneys not visualized. Spleen is unremarkable in size. Imaged portions of the aorta and IVC are normal in caliber. There is no ascites. Impression: Lack of visualization of the bilateral kidneys. Kidneys were noted to be absent on CT of 10/23/2016. Otherwise, unremarkable abdominal sonogram as above.
--- NOTE | 2017-02-04 09:01 | General Progress Note ---
Assessment/Plan Assessment/Plan (1) history of cerebrovascular accident (2) left-sided weakness (3) joint contractures (4) thalamic pain syndrome (5) chronic kidney disease on dialysis We will continue Dilaudid D/w Dr. Calix and he concurred. Subjective Date patient seen: Feb 04, 2017 Time patient seen: 07:00 - am Allergies: Coded Allergies: KETOROLAC (Verified Allergy, Mild, SOB, 06/28/11) METOCLOPRAMIDE (Verified Allergy, Mild, RASH, 06/28/11) NITROGLYCERIN (Verified Allergy, Mild, SEIZURES, 06/28/11) PENICILLINS (Verified Allergy, Mild, SOB, 06/28/11) PHENYTOIN (Verified Allergy, Mild, RASH, 06/28/11) ACETAMINOPHEN (Verified Allergy, Unknown, Shortness of Breath, 08/31/16) swelling throat, difficulty breathing CODEINE (Unverified Allergy, Unknown, 10/16/16) HEPARIN (Verified Allergy, Unknown, Shortness of Breath, 08/28/16) HYDRALAZINE (Verified Allergy, Unknown, 08/28/16) HYDROCODONE (Verified Allergy, Unknown, Shortness of Breath, 08/31/16) swelling throat, difficulty breathing IBUPROFEN (Verified Allergy, Unknown, RASH, 06/28/11) IODINE (Verified Allergy, Unknown, SHOCK, 06/28/11) POLYSTYRENE SULFONATE (Verified Allergy, Unknown, RASH, 06/28/11) PROMETHAZINE (Verified Allergy, Unknown, RASH, 06/28/11) Subjective REVIEW OF SYSTEMS: Denies rash, fever, chills, sweating, dizziness, drowsiness, blurred vision, sore throat, or change in his weight. No shortness of breath. No nausea, vomiting, diarrhea, or blood in stool or urine. No bowel or bladder incontinence. No dysuria. He is complaining of left-sided body pain. SUBJECTIVE: Pt is in bed no signs of pain or distress at this time. His pain has been reduced and tolerated on the Dilaudid 4 doses in the last 24hrs. He has no new complaints. Objective Last 24 Hour Vital Signs Date Time Temp Pulse Resp B/P (MAP) Pulse Ox O2 Delivery O2 Flow Rate FiO2 02/04/17 08:10 98.1 98 20 160/85 100 Room Air 02/04/17 07:05 98.0 02/04/17 04:00 100 Room Air 02/04/17 04:00 98.0 106 20 150/70 100 02/04/17 00:00 97.7 103 21 138/88 100 02/04/17 00:00 100 Room Air 02/03/17 21:09 156/83 02/03/17 21:08 98 156/83 02/03/17 20:00 99 Room Air 02/03/17 20:00 99.0 98 21 156/83 99 02/03/17 16:21 98.1 94 18 148/78 100 Room Air 02/03/17 14:47 104 153/96 02/03/17 13:08 99.3 104 20 134/62 100 Room Air 02/03/17 12:23 99.3 104 20 134/62 100 Room Air Intake and Output 02/03/17 02/04/17 19:00 07:00 Intake Total 2000 ml Balance 2000 ml Intake Oral 2000 ml # Voids 1 Laboratory Tests 02/03/17 21:00: Hepatitis A IgM Antibody [Pending], Hepatitis B Surface Antigen [Pending], Hepatitis B Core IgM Antibody [Pending], Hepatitis C Antibody [Pending] Height (Feet): 5 Height (Inches): 9.00 Weight (Pounds): 170 Objective GENERAL: Alert, awake, and oriented. LUNGS: Decreased breath sounds bilaterally. HEART: Regular. ABDOMEN: Tenderness to palpation. EXTREMITIES: No cyanosis. No clubbing. No edema. NEUROLOGICAL: Left-sided joint contractures noted with weakness exhibited in the upper and lower extremities. ANNA MATTA Feb 04, 2017 09:00
[2017-02-04] MEDS: Phenytoin 100mg cap ORAL SCH ×2 (09:18→20:10)
--- NOTE | 2017-02-04 11:48 | Nephrology Progress Note ---
Assessment/Plan Problem List: (1) End stage chronic kidney disease (2) Pericarditis (3) Left hemiplegia Assessment refusing blood work - End-stage renal disease, on hemodialysis. - Chest pain with history of the same. - History of chronic pericarditis. - Status post nephrectomy. - History of cerebrovascular accident. - Anemia of chronic disease. - Hypertensive disease. - Seizure disorder. - History of gastrointestinal bleed. - Cardiac pacer Plan Plan: schedule for HD in am M-W Fr due HD today resume anti Sz meds BP meds adjustment cardiology eval ? DC planning?? Subjective ROS Limited/Unobtainable: No Constitutional: Reports: malaise Objective Objective Last 24 Hour Vital Signs Date Time Temp Pulse Resp B/P (MAP) Pulse Ox O2 Delivery O2 Flow Rate FiO2 02/04/17 08:10 98.1 98 20 160/85 100 Room Air 02/04/17 07:05 98.0 02/04/17 04:00 100 Room Air 02/04/17 04:00 98.0 106 20 150/70 100 02/04/17 00:00 97.7 103 21 138/88 100 02/04/17 00:00 100 Room Air 02/03/17 21:09 156/83 02/03/17 21:08 98 156/83 02/03/17 20:00 99 Room Air 02/03/17 20:00 99.0 98 21 156/83 99 02/03/17 16:21 98.1 94 18 148/78 100 Room Air 02/03/17 14:47 104 153/96 02/03/17 13:08 99.3 104 20 134/62 100 Room Air 02/03/17 12:23 99.3 104 20 134/62 100 Room Air Intake and Output 02/03/17 02/04/17 19:00 07:00 Intake Total 2000 ml Balance 2000 ml Intake Oral 2000 ml # Voids 1 Laboratory Tests 02/03/17 21:00: Hepatitis A IgM Antibody [Pending], Hepatitis B Surface Antigen [Pending], Hepatitis B Core IgM Antibody [Pending], Hepatitis C Antibody [Pending] Height (Feet): 5 Height (Inches): 9.00 Weight (Pounds): 170 General Appearance: no apparent distress Respiratory/Chest: decreased breath sounds Abdomen: soft Objective no change MARIAJOSE LI Feb 04, 2017 11:48
--- NOTE | 2017-02-04 18:57 | General Progress Note ---
Assessment/Plan Assessment/Plan ASSESSMENT AND RECOMMENDATIONS: 1.Pancytopenia. --> anemia work up pending, watch count, transfuse if below 7 --> plt goal above 20K --> monitor for now, if worsens consider bmbx 2. End-stage renal disease. On hemodialysis Continue to closely monitor. 4. Anemia of chronic kidney disease. Continue to monitor. 5. Chest pain. Cardiology service following 6. Hypertension 7. S/p nephrectomy 8. History of pericarditis 9. Continue heparin subcutaneous for DVT prophylaxis Subjective Allergies: Coded Allergies: KETOROLAC (Verified Allergy, Mild, SOB, 06/28/11) METOCLOPRAMIDE (Verified Allergy, Mild, RASH, 06/28/11) NITROGLYCERIN (Verified Allergy, Mild, SEIZURES, 06/28/11) PENICILLINS (Verified Allergy, Mild, SOB, 06/28/11) PHENYTOIN (Verified Allergy, Mild, RASH, 06/28/11) ACETAMINOPHEN (Verified Allergy, Unknown, Shortness of Breath, 08/31/16) swelling throat, difficulty breathing CODEINE (Unverified Allergy, Unknown, 10/16/16) HEPARIN (Verified Allergy, Unknown, Shortness of Breath, 08/28/16) HYDRALAZINE (Verified Allergy, Unknown, 08/28/16) HYDROCODONE (Verified Allergy, Unknown, Shortness of Breath, 08/31/16) swelling throat, difficulty breathing IBUPROFEN (Verified Allergy, Unknown, RASH, 06/28/11) IODINE (Verified Allergy, Unknown, SHOCK, 06/28/11) POLYSTYRENE SULFONATE (Verified Allergy, Unknown, RASH, 06/28/11) PROMETHAZINE (Verified Allergy, Unknown, RASH, 06/28/11) All Systems: reviewed and negative except above Subjective afebrile, no bleeding reported Objective Last 24 Hour Vital Signs Date Time Temp Pulse Resp B/P (MAP) Pulse Ox O2 Delivery O2 Flow Rate FiO2 02/04/17 16:30 98.8 110 20 146/82 Room Air 02/04/17 16:30 Room Air 02/04/17 16:00 98.2 106 18 120/77 98 Room Air 02/04/17 14:00 106 120/77 02/04/17 14:00 120/77 02/04/17 12:00 99.0 98 18 139/88 100 Room Air 02/04/17 12:00 Room Air 02/04/17 12:00 99.0 103 20 152/92 Room Air 02/04/17 08:10 98.1 98 20 160/85 100 Room Air 02/04/17 07:05 98.0 02/04/17 04:00 100 Room Air 02/04/17 04:00 98.0 106 20 150/70 100 02/04/17 00:00 97.7 103 21 138/88 100 02/04/17 00:00 100 Room Air 02/03/17 21:09 156/83 02/03/17 21:08 98 156/83 02/03/17 20:00 99 Room Air 02/03/17 20:00 99.0 98 21 156/83 99 Intake and Output 02/03/17 02/04/17 19:00 07:00 Intake Total 2000 ml Balance 2000 ml Intake Oral 2000 ml # Voids 1 Laboratory Tests 02/03/17 21:00: Hepatitis A IgM Antibody [Pending], Hepatitis B Surface Antigen [Pending], Hepatitis B Core IgM Antibody [Pending], Hepatitis C Antibody [Pending] 02/04/17 13:30: HIV (1&2) Antibody Rapid Negative Height (Feet): 5 Height (Inches): 9.00 Weight (Pounds): 170 General Appearance: no apparent distress EENT: normal ENT inspection Neck: normal alignment Respiratory/Chest: chest wall non-tender Abdomen: normal bowel sounds Extremities: normal range of motion 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
[2017-02-04] MEDS ORDERED: NS 500ML ONE (22:51)
[2017-02-05] VITALS: BP 147/85
[2017-02-05] MEDS: Hydromorphone 0.5mg/0.5ml inj IVP PRN ×4 (02:03→20:33)
[2017-02-05] MEDS: DiphenhydrAMINE 50mg/ml Inj IVP PRN ×4 (02:03→20:33)
[2017-02-05 04:00] VITALS: BP 150/81
[2017-02-05] MEDS: Labetalol 200mg tab ORAL SCH ×3 (06:00→21:34)
[2017-02-05 08:23] VITALS: BP 146/96
[2017-02-05] MEDS: Phenytoin 100mg cap ORAL SCH ×2 (09:05→20:31)
--- NOTE | 2017-02-05 10:29 | Nephrology Progress Note ---
Assessment/Plan Plan ESRD - had HD yesterday. Anemia of CKD - SAÚL. Subjective Subjective No new c/o Objective Objective Last 24 Hour Vital Signs Date Time Temp Pulse Resp B/P (MAP) Pulse Ox O2 Delivery O2 Flow Rate FiO2 02/05/17 08:23 97.7 99 18 146/96 99 Room Air 02/05/17 06:00 96 150/81 02/05/17 06:00 150/81 02/05/17 04:00 98.8 96 21 150/81 98 02/05/17 04:00 Room Air 02/05/17 00:00 Room Air 02/05/17 00:00 97.9 98 20 147/85 100 02/04/17 23:11 100 152/92 02/04/17 22:00 152/92 02/04/17 20:00 Room Air 02/04/17 20:00 98.2 107 20 178/96 98 02/04/17 16:30 98.8 110 20 146/82 Room Air 02/04/17 16:30 Room Air 02/04/17 16:00 98.2 106 18 120/77 98 Room Air 02/04/17 14:00 106 120/77 02/04/17 14:00 120/77 02/04/17 12:00 99.0 98 18 139/88 100 Room Air 02/04/17 12:00 Room Air 02/04/17 12:00 99.0 103 20 152/92 Room Air Intake and Output 02/04/17 02/05/17 19:00 07:00 Output Total 1000 ml Balance -1000 ml Hemodialysis UF 1000 ml # Voids 1 Laboratory Tests 02/04/17 13:30: HIV (1&2) Antibody Rapid Negative Height (Feet): 5 Height (Inches): 9.00 Weight (Pounds): 170 Objective CV RR Lungs CTA Abd SNT. BS+ E No CCe. L Arm contracture. ARNIE SWEET Feb 05, 2017 10:29
[2017-02-05 12:00] VITALS: BP 158/84
--- NOTE | 2017-02-05 15:12 | Cardiology Progress Note ---
Assessment/Plan Problem List: (1) End stage chronic kidney disease (2) History of CVA (cerebrovascular accident) (3) Pericarditis Status: not improved Status Narrative Pt's chest pain may be due to GI source - gastritis /esophagitis or ulcer. concern for GI bleed w/ dec in h/h and coffee ground emesis. Assessment/Plan GI evaluation pending. Would transfuse if hg < 7 No new cardiac recs Subjective ROS Limited/Unobtainable: No Subjective Pt reports contined CP/ epigastric pain. also reports n/v w coffee ground emesis Objective Last 24 Hour Vital Signs Date Time Temp Pulse Resp B/P (MAP) Pulse Ox O2 Delivery O2 Flow Rate FiO2 02/05/17 13:53 100 158/84 02/05/17 12:00 99.9 100 18 158/84 97 Room Air 02/05/17 08:23 97.7 99 18 146/96 99 Room Air 02/05/17 06:00 96 150/81 02/05/17 06:00 150/81 02/05/17 04:00 98.8 96 21 150/81 98 02/05/17 04:00 Room Air 02/05/17 00:00 Room Air 02/05/17 00:00 97.9 98 20 147/85 100 02/04/17 23:11 100 152/92 02/04/17 22:00 152/92 02/04/17 20:00 Room Air 02/04/17 20:00 98.2 107 20 178/96 98 02/04/17 16:30 98.8 110 20 146/82 Room Air 02/04/17 16:30 Room Air 02/04/17 16:00 98.2 106 18 120/77 98 Room Air General Appearance: no apparent distress, alert, thin EENT: PERRL/EOMI Neck: no JVD Rhythm: NSR Cardiovascular: normal rate, regular rhythm, no gallop/murmur Respiratory/Chest: lungs clear Abdomen: non tender, soft, no mass Extremities: no swelling, other - flexion contracture of L hand / forearm Intake and Output 02/04/17 02/05/17 19:00 07:00 Output Total 1000 ml Balance -1000 ml Hemodialysis UF 1000 ml # Voids 1 TAYLOR BECKMAN Feb 05, 2017 15:12
[2017-02-05 16:00] VITALS: BP 156/89
--- NOTE | 2017-02-05 18:23 | General Progress Note ---
Assessment/Plan Assessment/Plan (1) history of cerebrovascular accident (2) left-sided weakness (3) joint contractures (4) thalamic pain syndrome (5) chronic kidney disease on dialysis We will continue Dilaudid D/w Dr. Calix and he concurred. Subjective Date patient seen: Feb 05, 2017 Time patient seen: 05:30 - pm Allergies: Coded Allergies: KETOROLAC (Verified Allergy, Mild, SOB, 06/28/11) METOCLOPRAMIDE (Verified Allergy, Mild, RASH, 06/28/11) NITROGLYCERIN (Verified Allergy, Mild, SEIZURES, 06/28/11) PENICILLINS (Verified Allergy, Mild, SOB, 06/28/11) PHENYTOIN (Verified Allergy, Mild, RASH, 06/28/11) ACETAMINOPHEN (Verified Allergy, Unknown, Shortness of Breath, 08/31/16) swelling throat, difficulty breathing CODEINE (Unverified Allergy, Unknown, 10/16/16) HEPARIN (Verified Allergy, Unknown, Shortness of Breath, 08/28/16) HYDRALAZINE (Verified Allergy, Unknown, 08/28/16) HYDROCODONE (Verified Allergy, Unknown, Shortness of Breath, 08/31/16) swelling throat, difficulty breathing IBUPROFEN (Verified Allergy, Unknown, RASH, 06/28/11) IODINE (Verified Allergy, Unknown, SHOCK, 06/28/11) POLYSTYRENE SULFONATE (Verified Allergy, Unknown, RASH, 06/28/11) PROMETHAZINE (Verified Allergy, Unknown, RASH, 06/28/11) Subjective REVIEW OF SYSTEMS: Denies rash, fever, chills, sweating, dizziness, drowsiness, blurred vision, sore throat, or change in his weight. No shortness of breath. No nausea, vomiting, diarrhea, or blood in stool or urine. No bowel or bladder incontinence. No dysuria. He is complaining of left-sided body pain. SUBJECTIVE: Pt shows no signs of pain at this time. He continues to c/o body pain which has been tolerated on the Dilaudid. No new complaints at this time. Objective Last 24 Hour Vital Signs Date Time Temp Pulse Resp B/P (MAP) Pulse Ox O2 Delivery O2 Flow Rate FiO2 02/05/17 16:00 98.2 97 18 156/89 99 Room Air 02/05/17 13:53 100 158/84 02/05/17 12:00 99.9 100 18 158/84 97 Room Air 02/05/17 08:23 97.7 99 18 146/96 99 Room Air 02/05/17 06:00 96 150/81 02/05/17 06:00 150/81 02/05/17 04:00 98.8 96 21 150/81 98 02/05/17 04:00 Room Air 02/05/17 00:00 Room Air 02/05/17 00:00 97.9 98 20 147/85 100 02/04/17 23:11 100 152/92 02/04/17 22:00 152/92 02/04/17 20:00 Room Air 02/04/17 20:00 98.2 107 20 178/96 98 Intake and Output 02/04/17 02/05/17 19:00 07:00 Output Total 1000 ml Balance -1000 ml Hemodialysis UF 1000 ml # Voids 1 Height (Feet): 5 Height (Inches): 9.00 Weight (Pounds): 170 Objective GENERAL: Alert, awake, and oriented. LUNGS: Decreased breath sounds bilaterally. HEART: Regular. ABDOMEN: Tenderness to palpation. EXTREMITIES: No cyanosis. No clubbing. No edema. NEUROLOGICAL: Left-sided joint contractures noted with weakness exhibited in the upper and lower extremities. ANNA MATTA Feb 05, 2017 18:23
--- NOTE | 2017-02-05 19:59 | General Progress Note ---
Assessment/Plan Assessment/Plan ASSESSMENT AND RECS: 1. Pancytopenia. Stable at baseline --> anemia work up pending, watch count, transfuse if below 7 --> plt goal above 20K --> monitor for now, if worsens consider bmbx 2. End-stage renal disease. On HD, continue to closely monitor. 4. Anemia of chronic kidney disease. Continue to monitor. 5. Chest pain. Cardiology service following 6. Hypertension 7. S/p nephrectomy 8. History of pericarditis 9. Continue heparin subcutaneous for DVT prophylaxis Subjective Constitutional: Denies: no symptoms, chills, diaphoresis, fever, malaise, weakness, other HEENT: Denies: no symptoms, eye pain, blurred vision, tearing, double vision, ear pain, ear discharge, nose pain, nose congestion, throat pain, throat swelling, mouth pain, mouth swelling, other Cardiovascular: Denies: no symptoms, chest pain, edema, irregular heart rate, lightheadedness, palpitations, syncope, other Respiratory: Denies: no symptoms, cough, orthopnea, shortness of breath, SOB with excertion, SOB at rest, sputum, stridor, wheezing, other Gastrointestinal/Abdominal: Denies: no symptoms, abdomen distended, abdominal pain, black stools, tarry stools, blood in stool, constipated, diarrhea, difficulty swallowing, nausea, poor appetite, poor fluid intake, rectal bleeding , vomiting, other Genitourinary: Denies: no symptoms, burning, discharge, frequency, flank pain, hematuria, incontinence, pain, urgency, other Neurologic/Psychiatric: Denies: no symptoms, anxiety, depressed, emotional problems, headache, numbness, paresthesia, pre-existing deficit, seizure, tingling, tremors, weakness, other Hematologic/Lymphatic: Denies: no symptoms, anemia, easy bleeding, easy bruising, other Allergies: Coded Allergies: KETOROLAC (Verified Allergy, Mild, SOB, 06/28/11) METOCLOPRAMIDE (Verified Allergy, Mild, RASH, 06/28/11) NITROGLYCERIN (Verified Allergy, Mild, SEIZURES, 06/28/11) PENICILLINS (Verified Allergy, Mild, SOB, 06/28/11) PHENYTOIN (Verified Allergy, Mild, RASH, 06/28/11) ACETAMINOPHEN (Verified Allergy, Unknown, Shortness of Breath, 08/31/16) swelling throat, difficulty breathing CODEINE (Unverified Allergy, Unknown, 10/16/16) HEPARIN (Verified Allergy, Unknown, Shortness of Breath, 08/28/16) HYDRALAZINE (Verified Allergy, Unknown, 08/28/16) HYDROCODONE (Verified Allergy, Unknown, Shortness of Breath, 08/31/16) swelling throat, difficulty breathing IBUPROFEN (Verified Allergy, Unknown, RASH, 06/28/11) IODINE (Verified Allergy, Unknown, SHOCK, 06/28/11) POLYSTYRENE SULFONATE (Verified Allergy, Unknown, RASH, 06/28/11) PROMETHAZINE (Verified Allergy, Unknown, RASH, 06/28/11) Subjective afebrile, no bleeding reported Objective Last 24 Hour Vital Signs Date Time Temp Pulse Resp B/P (MAP) Pulse Ox O2 Delivery O2 Flow Rate FiO2 02/05/17 16:00 98.2 97 18 156/89 99 Room Air 02/05/17 13:53 100 158/84 02/05/17 12:00 99.9 100 18 158/84 97 Room Air 02/05/17 08:23 97.7 99 18 146/96 99 Room Air 02/05/17 06:00 96 150/81 02/05/17 06:00 150/81 02/05/17 04:00 98.8 96 21 150/81 98 02/05/17 04:00 Room Air 02/05/17 00:00 Room Air 02/05/17 00:00 97.9 98 20 147/85 100 02/04/17 23:11 100 152/92 02/04/17 22:00 152/92 02/04/17 20:00 Room Air 02/04/17 20:00 98.2 107 20 178/96 98 Intake and Output 02/04/17 02/05/17 19:00 07:00 Output Total 1000 ml Balance -1000 ml Hemodialysis UF 1000 ml # Voids 1 Height (Feet): 5 Height (Inches): 9.00 Weight (Pounds): 170 General Appearance: no apparent distress EENT: PERRL/EOMI Neck: normal alignment Cardiovascular: normal peripheral pulses Abdomen: non tender Pelvis: no masses Extremities: non-tender Chavo Alfaro Feb 05, 2017 19:59
[2017-02-05 20:00] VITALS: BP 146/88
[2017-02-05] MEDS: Epogen (for ESRD on dialysis) SUBQ SCH (20:32)
[2017-02-06] VITALS: BP 151/84
[2017-02-06] MEDS: Hydromorphone 0.5mg/0.5ml inj IVP PRN ×4 (02:30→23:11)
[2017-02-06] MEDS: DiphenhydrAMINE 50mg/ml Inj IVP PRN ×4 (02:31→23:11)
[2017-02-06 04:00] VITALS: BP 143/85
[2017-02-06] MEDS: Labetalol 200mg tab ORAL SCH ×4 (05:43→22:00)
[2017-02-06 08:00] VITALS: BP 156/87
--- NOTE | 2017-02-06 08:44 | General Progress Note ---
Assessment/Plan Assessment/Plan (1) history of cerebrovascular accident (2) left-sided weakness (3) joint contractures (4) thalamic pain syndrome (5) chronic kidney disease on dialysis We will continue Dilaudid D/w Dr. Calix and he concurred. Subjective Date patient seen: Feb 06, 2017 Time patient seen: 07:00 - am Allergies: Coded Allergies: KETOROLAC (Verified Allergy, Mild, SOB, 06/28/11) METOCLOPRAMIDE (Verified Allergy, Mild, RASH, 06/28/11) NITROGLYCERIN (Verified Allergy, Mild, SEIZURES, 06/28/11) PENICILLINS (Verified Allergy, Mild, SOB, 06/28/11) PHENYTOIN (Verified Allergy, Mild, RASH, 06/28/11) ACETAMINOPHEN (Verified Allergy, Unknown, Shortness of Breath, 08/31/16) swelling throat, difficulty breathing CODEINE (Unverified Allergy, Unknown, 10/16/16) HEPARIN (Verified Allergy, Unknown, Shortness of Breath, 08/28/16) HYDRALAZINE (Verified Allergy, Unknown, 08/28/16) HYDROCODONE (Verified Allergy, Unknown, Shortness of Breath, 08/31/16) swelling throat, difficulty breathing IBUPROFEN (Verified Allergy, Unknown, RASH, 06/28/11) IODINE (Verified Allergy, Unknown, SHOCK, 06/28/11) POLYSTYRENE SULFONATE (Verified Allergy, Unknown, RASH, 06/28/11) PROMETHAZINE (Verified Allergy, Unknown, RASH, 06/28/11) Subjective REVIEW OF SYSTEMS: Denies rash, fever, chills, sweating, dizziness, drowsiness, blurred vision, sore throat, or change in his weight. No shortness of breath. No nausea, vomiting, diarrhea, or blood in stool or urine. No bowel or bladder incontinence. No dysuria. He is complaining of left-sided body pain. SUBJECTIVE: Pt in bed continues to c/o pain and has been tolerated on the Dilaudid which he has received 5 doses of in the last 24hrs. Objective Last 24 Hour Vital Signs Date Time Temp Pulse Resp B/P (MAP) Pulse Ox O2 Delivery O2 Flow Rate FiO2 02/06/17 04:00 97.7 101 18 143/85 99 Room Air 02/06/17 00:00 98.4 97 18 151/84 97 Room Air 02/05/17 21:34 98 149/91 02/05/17 20:00 98.1 100 20 146/88 98 Room Air 02/05/17 16:00 98.2 97 18 156/89 99 Room Air 02/05/17 13:53 100 158/84 02/05/17 12:00 99.9 100 18 158/84 97 Room Air Intake and Output 02/05/17 02/06/17 19:00 07:00 Intake Total 500 ml Balance 500 ml Intake Oral 500 ml # Voids 1 # Bowel Movements 1 1 Height (Feet): 5 Height (Inches): 9.00 Weight (Pounds): 170 Objective GENERAL: Alert, awake, and oriented. LUNGS: Decreased breath sounds bilaterally. HEART: Regular. ABDOMEN: Tenderness to palpation. EXTREMITIES: No cyanosis. No clubbing. No edema. NEUROLOGICAL: Left-sided joint contractures noted with weakness exhibited in the upper and lower extremities. ANNA MATTA Feb 06, 2017 08:44
[2017-02-06] MEDS: Phenytoin 100mg cap ORAL SCH ×2 (08:57→20:37)
--- NOTE | 2017-02-06 10:39 | Nephrology Progress Note ---
Assessment/Plan Plan ESRD - for HD today. GI bleed - per GI. Check labs. Anemia of CKD - SAÚL. Subjective Subjective No new c/o. Assumed care from others. Patient state he was misunderstood. Still c/o dark stool. Objective Objective Last 24 Hour Vital Signs Date Time Temp Pulse Resp B/P (MAP) Pulse Ox O2 Delivery O2 Flow Rate FiO2 02/06/17 09:29 97.7 02/06/17 08:00 98.2 100 20 156/87 100 Room Air 02/06/17 04:00 97.7 101 18 143/85 99 Room Air 02/06/17 00:00 98.4 97 18 151/84 97 Room Air 02/05/17 21:34 98 149/91 02/05/17 20:00 98.1 100 20 146/88 98 Room Air 02/05/17 16:00 98.2 97 18 156/89 99 Room Air 02/05/17 13:53 100 158/84 02/05/17 12:00 99.9 100 18 158/84 97 Room Air Intake and Output 02/05/17 02/06/17 19:00 07:00 Intake Total 500 ml Balance 500 ml Intake Oral 500 ml # Voids 1 # Bowel Movements 1 1 Height (Feet): 5 Height (Inches): 9.00 Weight (Pounds): 170 Objective CV RR Lungs CTA Abd SNT. BS+ E No CCe. L Arm contracture. ARNIE SWEET Feb 06, 2017 10:39
[2017-02-06] MEDS ORDERED: Heparin Sod 1000 units/ml 10ml IV ONE (10:45)
[2017-02-06 12:00] VITALS: BP 165/95
[2017-02-06 16:00] VITALS: BP 161/82
--- NOTE | 2017-02-06 17:25 | Pulmonology Progress Note ---
Assessment/Plan Problems: (1) ESRF (end stage renal failure) (2) Severe malnutrition (3) Uncontrolled hypertension (4) Anemia Assessment/Plan symptomatic treatment HD by nephrology watch wbc H2 blockers dc planning Subjective ROS Limited/Unobtainable: No Interval Events: c/p abdominal pain Allergies: Coded Allergies: KETOROLAC (Verified Allergy, Mild, SOB, 06/28/11) METOCLOPRAMIDE (Verified Allergy, Mild, RASH, 06/28/11) NITROGLYCERIN (Verified Allergy, Mild, SEIZURES, 06/28/11) PENICILLINS (Verified Allergy, Mild, SOB, 06/28/11) PHENYTOIN (Verified Allergy, Mild, RASH, 06/28/11) ACETAMINOPHEN (Verified Allergy, Unknown, Shortness of Breath, 08/31/16) swelling throat, difficulty breathing CODEINE (Unverified Allergy, Unknown, 10/16/16) HEPARIN (Verified Allergy, Unknown, Shortness of Breath, 08/28/16) HYDRALAZINE (Verified Allergy, Unknown, 08/28/16) HYDROCODONE (Verified Allergy, Unknown, Shortness of Breath, 08/31/16) swelling throat, difficulty breathing IBUPROFEN (Verified Allergy, Unknown, RASH, 06/28/11) IODINE (Verified Allergy, Unknown, SHOCK, 06/28/11) POLYSTYRENE SULFONATE (Verified Allergy, Unknown, RASH, 06/28/11) PROMETHAZINE (Verified Allergy, Unknown, RASH, 06/28/11) Objective Last 24 Hour Vital Signs Date Time Temp Pulse Resp B/P (MAP) Pulse Ox O2 Delivery O2 Flow Rate FiO2 02/06/17 16:00 98.1 105 20 161/82 99 Room Air 02/06/17 12:00 98.8 95 20 165/95 100 Room Air 02/06/17 09:29 97.7 02/06/17 08:00 98.2 100 20 156/87 100 Room Air 02/06/17 04:00 97.7 101 18 143/85 99 Room Air 02/06/17 00:00 98.4 97 18 151/84 97 Room Air 02/05/17 21:34 98 149/91 02/05/17 20:00 98.1 100 20 146/88 98 Room Air Intake and Output 02/05/17 02/06/17 19:00 07:00 Intake Total 500 ml Balance 500 ml Intake Oral 500 ml # Voids 1 # Bowel Movements 1 1 General Appearance: WD/WN HEENT: normocephalic Respiratory/Chest: chest wall non-tender, lungs clear Cardiovascular: normal peripheral pulses, regular rhythm Abdomen: normal bowel sounds, soft, non tender Genitourinary: normal external genitalia Extremities: no cyanosis Skin: no rash, no lesions 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, abnormal gait Lymphatic: no neck adenopathy Musculoskeletal: normal muscle bulk Current Medications Medications (Trade) Dose Ordered Sig/Anant Route PRN Reason Start Time Stop Time Status Last Admin Dose Admin Clonidine HCl (Catapres) 0.1 mg Q8HR ORAL 02/02/17 14:30 03/04/17 14:29 02/03/17 21:09 Diphenhydramine HCl (Benadryl) 25 mg Q6H PRN IVP Itching 02/02/17 16:15 03/03/17 16:14 02/06/17 15:57 Divalproex Sodium (Depakote) 250 mg Q12HR ORAL 02/02/17 21:00 03/03/17 20:59 02/06/17 08:57 Epoetin Rajinder (Procrit (for ESRD on dialysis)) 10,000 units SUN-SUN-SUN SUBQ 02/05/17 21:00 03/07/17 20:59 02/05/17 20:32 Hydromorphone HCl (Dilaudid) 1 mg Q6H PRN IVP Severe Pain (Pain Scale 7-10) 02/02/17 14:30 02/08/17 08:29 02/06/17 15:57 Iron Sucrose 100 mg/Sodium Chloride 60 ml @ 240 mls/hr BEDTIME IV 02/06/17 21:00 02/10/17 21:14 Labetalol HCl (Normodyne) 200 mg Q8HR ORAL 02/02/17 14:30 03/03/17 14:29 02/05/17 21:34 Levetiracetam (Keppra) 500 mg DAILY ORAL 02/03/17 09:00 03/04/17 08:59 02/06/17 08:57 Pantoprazole (Protonix) 40 mg BID ORAL 02/02/17 18:00 03/03/17 17:59 02/06/17 17:10 Phenytoin (Dilantin) 200 mg Q12HR ORAL 02/02/17 21:00 03/03/17 20:59 02/06/17 08:57 Sodium Chloride 1,000 ml @ 500 mls/hr Q2H PRN IVLG sbp<90 during hd 02/06/17 10:29 03/08/17 10:28 BETHEL PACK Feb 06, 2017 17:25
--- NOTE | 2017-02-06 17:25 | Cardiology Progress Note ---
Assessment/Plan Assessment/Plan 1. Chest pain with history of the same. 2. History of chronic pericarditis. 3. End-stage renal disease, on hemodialysis. 4. Status post nephrectomy. 5. History of cerebrovascular accident. 6. Hypertensive disease. 7. Anemia of chronic disease. no rubs on exma all trop neg duplex neg ekg neg dc planning Subjective Cardiovascular: Denies: chest pain, lightheadedness, palpitations Respiratory: Denies: shortness of breath Gastrointestinal/Abdominal: Denies: abdominal pain Genitourinary: Denies: burning Objective Last 24 Hour Vital Signs Date Time Temp Pulse Resp B/P (MAP) Pulse Ox O2 Delivery O2 Flow Rate FiO2 02/06/17 16:00 98.1 105 20 161/82 99 Room Air 02/06/17 12:00 98.8 95 20 165/95 100 Room Air 02/06/17 09:29 97.7 02/06/17 08:00 98.2 100 20 156/87 100 Room Air 02/06/17 04:00 97.7 101 18 143/85 99 Room Air 02/06/17 00:00 98.4 97 18 151/84 97 Room Air 02/05/17 21:34 98 149/91 02/05/17 20:00 98.1 100 20 146/88 98 Room Air General Appearance: no apparent distress, alert Cardiovascular: normal rate, regular rhythm Respiratory/Chest: lungs clear, normal breath sounds Abdomen: normal bowel sounds, non tender, soft Extremities: no swelling Intake and Output 02/05/17 02/06/17 19:00 07:00 Intake Total 500 ml Balance 500 ml Intake Oral 500 ml # Voids 1 # Bowel Movements 1 1 SAMINA STERN Feb 06, 2017 17:25
[2017-02-06 20:00] VITALS: BP 154/90
--- NOTE | 2017-02-06 20:14 | General Progress Note ---
Assessment/Plan Assessment/Plan ASSESSMENT AND RECS: 1. Pancytopenia. Stable at baseline --> anemia work up reviewed, watch count, transfuse if below 7 --> plt goal above 20K --> monitor for now, if worsens consider bmbx 2. End-stage renal disease. On HD, continue to closely monitor. 4. Anemia of chronic kidney disease. Continue to monitor. 5. Chest pain. Cardiology service following 6. Hypertension 7. S/p nephrectomy 8. History of pericarditis 9. Continue heparin subcutaneous for DVT prophylaxis Subjective Allergies: Coded Allergies: KETOROLAC (Verified Allergy, Mild, SOB, 06/28/11) METOCLOPRAMIDE (Verified Allergy, Mild, RASH, 06/28/11) NITROGLYCERIN (Verified Allergy, Mild, SEIZURES, 06/28/11) PENICILLINS (Verified Allergy, Mild, SOB, 06/28/11) PHENYTOIN (Verified Allergy, Mild, RASH, 06/28/11) ACETAMINOPHEN (Verified Allergy, Unknown, Shortness of Breath, 08/31/16) swelling throat, difficulty breathing CODEINE (Unverified Allergy, Unknown, 10/16/16) HEPARIN (Verified Allergy, Unknown, Shortness of Breath, 08/28/16) HYDRALAZINE (Verified Allergy, Unknown, 08/28/16) HYDROCODONE (Verified Allergy, Unknown, Shortness of Breath, 08/31/16) swelling throat, difficulty breathing IBUPROFEN (Verified Allergy, Unknown, RASH, 06/28/11) IODINE (Verified Allergy, Unknown, SHOCK, 06/28/11) POLYSTYRENE SULFONATE (Verified Allergy, Unknown, RASH, 06/28/11) PROMETHAZINE (Verified Allergy, Unknown, RASH, 06/28/11) All Systems: reviewed and negative except above Subjective afebrile, no bleeding reported Objective Last 24 Hour Vital Signs Date Time Temp Pulse Resp B/P (MAP) Pulse Ox O2 Delivery O2 Flow Rate FiO2 02/06/17 16:27 98.1 02/06/17 16:00 98.1 105 20 161/82 99 Room Air 02/06/17 12:00 98.8 95 20 165/95 100 Room Air 02/06/17 08:00 98.2 100 20 156/87 100 Room Air 02/06/17 04:00 97.7 101 18 143/85 99 Room Air 02/06/17 00:00 98.4 97 18 151/84 97 Room Air 02/05/17 21:34 98 149/91 Intake and Output 02/05/17 02/06/17 19:00 07:00 Intake Total 500 ml Balance 500 ml Intake Oral 500 ml # Voids 1 # Bowel Movements 1 1 Height (Feet): 5 Height (Inches): 9.00 Weight (Pounds): 170 General Appearance: no apparent distress EENT: normal ENT inspection Neck: normal alignment Cardiovascular: normal peripheral pulses Abdomen: normal bowel sounds, non tender Extremities: normal range of motion 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
[2017-02-06] MEDS: Iron Sucrose 100 MG in NS 55 ML IV SCH (22:19)
[2017-02-07] VITALS (7 sets, daily range): BP systolic 121–198; BP diastolic 53–104
[2017-02-07] MEDS: Labetalol 200mg tab ORAL SCH ×3 (05:49→22:14)
[2017-02-07] MEDS: DiphenhydrAMINE 50mg/ml Inj IVP PRN ×3 (06:05→22:15)
[2017-02-07] MEDS: Hydromorphone 0.5mg/0.5ml inj IVP PRN ×3 (06:05→22:15)
--- NOTE | 2017-02-07 08:42 | General Progress Note ---
Assessment/Plan Assessment/Plan (1) history of cerebrovascular accident (2) left-sided weakness (3) joint contractures (4) thalamic pain syndrome (5) chronic kidney disease on dialysis We will continue Dilaudid D/w Dr. Calix and he concurred. Subjective Date patient seen: Feb 07, 2017 Time patient seen: 07:00 - am Allergies: Coded Allergies: KETOROLAC (Verified Allergy, Mild, SOB, 06/28/11) METOCLOPRAMIDE (Verified Allergy, Mild, RASH, 06/28/11) NITROGLYCERIN (Verified Allergy, Mild, SEIZURES, 06/28/11) PENICILLINS (Verified Allergy, Mild, SOB, 06/28/11) PHENYTOIN (Verified Allergy, Mild, RASH, 06/28/11) ACETAMINOPHEN (Verified Allergy, Unknown, Shortness of Breath, 08/31/16) swelling throat, difficulty breathing CODEINE (Unverified Allergy, Unknown, 10/16/16) HEPARIN (Verified Allergy, Unknown, Shortness of Breath, 08/28/16) HYDRALAZINE (Verified Allergy, Unknown, 08/28/16) HYDROCODONE (Verified Allergy, Unknown, Shortness of Breath, 08/31/16) swelling throat, difficulty breathing IBUPROFEN (Verified Allergy, Unknown, RASH, 06/28/11) IODINE (Verified Allergy, Unknown, SHOCK, 06/28/11) POLYSTYRENE SULFONATE (Verified Allergy, Unknown, RASH, 06/28/11) PROMETHAZINE (Verified Allergy, Unknown, RASH, 06/28/11) Subjective REVIEW OF SYSTEMS: Denies rash, fever, chills, sweating, dizziness, drowsiness, blurred vision, sore throat, or change in his weight. No shortness of breath. No nausea, vomiting, diarrhea, or blood in stool or urine. No bowel or bladder incontinence. No dysuria. He is complaining of left-sided body pain. SUBJECTIVE: Pt in bed pain is stable and tolerated on the Dilaudid which he has received 6 doses of in the last 24hrs. He has no new complaints. Objective Last 24 Hour Vital Signs Date Time Temp Pulse Resp B/P (MAP) Pulse Ox O2 Delivery O2 Flow Rate FiO2 02/07/17 05:49 99 146/82 02/07/17 04:00 97.7 104 16 140/75 100 02/07/17 04:00 Room Air 02/07/17 00:33 106 161/96 98 Room Air 02/07/17 00:00 98.2 111 21 198/104 98 02/07/17 00:00 Room Air 02/06/17 21:00 Room Air 02/06/17 20:00 98.4 96 20 154/90 100 02/06/17 20:00 Room Air 02/06/17 16:27 98.1 02/06/17 16:00 98.1 105 20 161/82 99 Room Air 02/06/17 12:00 98.8 95 20 165/95 100 Room Air Intake and Output 02/06/17 02/07/17 19:00 07:00 Intake Total 240 ml 240 ml Balance 240 ml 240 ml Intake Oral 240 ml 240 ml # Bowel Movements 1 1 Height (Feet): 5 Height (Inches): 9.00 Weight (Pounds): 170 Objective GENERAL: Alert, awake, and oriented. LUNGS: Decreased breath sounds bilaterally. HEART: Regular. ABDOMEN: Tenderness to palpation. EXTREMITIES: No cyanosis. No clubbing. No edema. NEUROLOGICAL: Left-sided joint contractures noted with weakness exhibited in the upper and lower extremities. ANNA MATTA Feb 07, 2017 08:41
[2017-02-07] MEDS: Phenytoin 100mg cap ORAL SCH ×2 (08:52→22:14)
--- NOTE | 2017-02-07 12:31 | Nephrology Progress Note ---
Assessment/Plan Plan ESRD - for HD tomorrow GI bleed - No GI seen. Anemia of CKD - SAÚL. Subjective Subjective c/o vomiting blood. Assumed care from others. Patient state he was misunderstood. Still c/o dark stool. Admitted to the hospital with severe anemia. No GI w/u done so far Objective Objective Last 24 Hour Vital Signs Date Time Temp Pulse Resp B/P (MAP) Pulse Ox O2 Delivery O2 Flow Rate FiO2 02/07/17 11:35 98.2 102 20 170/93 99 Room Air 02/07/17 08:51 98.4 99 20 157/82 100 Room Air 02/07/17 05:49 99 146/82 02/07/17 04:00 97.7 104 16 140/75 100 02/07/17 04:00 Room Air 02/07/17 00:33 106 161/96 98 Room Air 02/07/17 00:00 98.2 111 21 198/104 98 02/07/17 00:00 Room Air 02/06/17 21:00 Room Air 02/06/17 20:00 98.4 96 20 154/90 100 02/06/17 20:00 Room Air 02/06/17 16:27 98.1 02/06/17 16:00 98.1 105 20 161/82 99 Room Air Intake and Output 02/06/17 02/07/17 19:00 07:00 Intake Total 240 ml 240 ml Balance 240 ml 240 ml Intake Oral 240 ml 240 ml # Bowel Movements 1 1 Height (Feet): 5 Height (Inches): 9.00 Weight (Pounds): 170 Objective CV RR Lungs CTA Abd SNT. BS+ E No CCe. L Arm contracture. ARNIE SWEET Feb 07, 2017 12:31
[2017-02-07] MEDS ORDERED: Heparin Sod 1000 units/ml 10ml IV PRN (13:00)
--- NOTE | 2017-02-07 16:53 | GI Initial Consult Note ---
History of Present Illness General Date patient seen: Feb 07, 2017 Time patient seen: 16:36 Reason for Hospitalization: Abdominal Pain Referring physician: ARNIE MARTINEZ Reason for Consultation: GI BLEED Present Illness HPI 31-year-old male with pmhx of HTN, DM, end-stage renal disease on dialysis Sunday, last dialysis today, history of pericardial effusion status post pericardiocentesis and pericardial window performed about 6 months ago, CAD with 2 stents, CVA with left-sided weakness p/w chest pain for 2 hours. Chest pain started while after having dialysis. Localized to substernal area, no radiation to back or other areas, sharp in nature, gradual in onset, lasted 2 hours. Occurred on rest. Denies SOB. Denies palpitations, diaphoresis , n/v. Denies fever, chills, cough, abd pain. Denies trauma. GI consulted for reports of hematemesis. HPI as noted above. Pt is known to us, admitted twice last year with similar complaints of hematemesis and rectal bleed. EGD was performed in april and October; no active bleed noted during both procedures, see summary below. Flex Sig was also done in October, but revealed unremarkable results due to a poor prep. Seen on floor awake, A&Ox4 NAD with c/o of recent emesis but no noted blood per patient. Lab evaluation shows anemia, elevated alkaline phosphatase, CEA elevation. No other general complaints at this time. Endoscopy Procedure Note Indication for Procedure: colitis, anemia Procedures Performed: flexible sigmoidoscopy Operative Findings/Diagnosis: poor prep JEN SANDOVAL - Nov 02, 2016 12:53 Endoscopy Procedure Note Indication for Procedure: anemia Procedures Performed: EGD Operative Findings/Diagnosis: gastritis JEN SANDOVAL - Oct 23, 2016 11:03 Home Meds Reported Medications Labetalol Hcl* (NORMODYNE*) 200 Mg Tablet, 200 MG ORAL DAILY, TAB 01/31/17 Phenytoin Sodium Extended* (DILANTIN*) 100 Mg Capsule, 200 MG ORAL DAILY 08/28/16 Nut.tx.impaired Renal Fxn,Soy (NEPRO CARB STEADY) 237 Ml Liquid, PO QID 08/28/16 Clonidine Hcl* (CATAPRES*) 0.2 Mg Tablet, 0.2 MG ORAL DAILY 08/28/16 Divalproex Sodium* (DEPAKOTE*) 250 Mg Tablet.dr, 250 MG PO Q12HR, TAB 08/28/16 Levetiracetam (KEPPRA) 1,000 Mg Tablet, 1000 MG ORAL DAILY, TAB 0 Refills 08/28/16 Discontinued Reported Medications Pantoprazole* (PROTONIX*) 40 Mg Tablet.dr, 40 MG ORAL 08/28/16 Lisinopril* (LISINOPRIL*) 10 Mg Tablet, 10 MG ORAL DAILY 08/28/16 Labetalol Hcl* (NORMODYNE*) 300 Mg Tablet, 300 MG ORAL DAILY 08/28/16 Med list reviewed/reconciled: Yes Allergies: Coded Allergies: KETOROLAC (Verified Allergy, Mild, SOB, 06/28/11) METOCLOPRAMIDE (Verified Allergy, Mild, RASH, 06/28/11) NITROGLYCERIN (Verified Allergy, Mild, SEIZURES, 06/28/11) PENICILLINS (Verified Allergy, Mild, SOB, 06/28/11) PHENYTOIN (Verified Allergy, Mild, RASH, 06/28/11) ACETAMINOPHEN (Verified Allergy, Unknown, Shortness of Breath, 08/31/16) swelling throat, difficulty breathing CODEINE (Unverified Allergy, Unknown, 10/16/16) HYDRALAZINE (Verified Allergy, Unknown, 08/28/16) HYDROCODONE (Verified Allergy, Unknown, Shortness of Breath, 08/31/16) swelling throat, difficulty breathing IBUPROFEN (Verified Allergy, Unknown, RASH, 06/28/11) IODINE (Verified Allergy, Unknown, SHOCK, 06/28/11) POLYSTYRENE SULFONATE (Verified Allergy, Unknown, RASH, 06/28/11) PROMETHAZINE (Verified Allergy, Unknown, RASH, 06/28/11) Patient History History Provided By: Patient, Medical Record PMH Narrative Past Medical History: see triage record Past Surgical History: none Pertinent Family History: none Reviewed Nursing Documentation: PMH: Agreed, PSxH: Agreed Nursing Documentation-PMH Hx Cardiac Problems: Yes Hx Hypertension: Yes Hx Pacemaker: Yes Hx Asthma: Yes Hx Cancer: No Hx Gastrointestinal Problems: Yes Hx Dialysis: Yes - shunts both arms Hx Cerebrovascular Accident: Yes Hx Seizures: Yes Social History: Denies: smoking, alcohol use, drug use, other Review of Systems All Other Systems: negative except mentioned in HPI Physical Exam Vital Signs Date Time Temp Pulse Resp B/P (MAP) Pulse Ox O2 Delivery O2 Flow Rate FiO2 02/03/17 08:40 98.1 99 20 125/71 99 Room Air Sp02 EP Interpretation: reviewed, normal General Appearance: well appearing, no apparent distress, alert, thin Head: normocephalic EENT: PERRL/EOMI, normal ENT inspection Neck: supple Respiratory: normal breath sounds, no respiratory distress Cardiovascular: normal rate Gastrointestinal: normal inspection, non tender, soft, normal bowel sounds, non -distended Rectal: deferred Genitourinary: deferred Neurologic: alert, oriented x3, responsive Psychiatric: normal inspection, judgement/insight normal, memory normal Skin: normal inspection, normal color, no rash, warm/dry, palpation normal, well hydrated Lymphatic: normal inspection, no adenopathy Current Medications Current Medications Medications (Trade) Dose Ordered Sig/Anant Route PRN Reason Start Time Stop Time Status Last Admin Dose Admin Clonidine HCl (Catapres) 0.1 mg Q8HR ORAL 02/02/17 14:30 03/04/17 14:29 02/07/17 12:39 Diphenhydramine HCl (Benadryl) 25 mg Q6H PRN IVP Itching 02/02/17 16:15 03/03/17 16:14 02/07/17 06:05 Divalproex Sodium (Depakote) 250 mg Q12HR ORAL 02/02/17 21:00 03/03/17 20:59 02/07/17 08:52 Epoetin Rajinder (Procrit (for ESRD on dialysis)) 10,000 units SUN-SUN-SUN SUBQ 02/05/17 21:00 03/07/17 20:59 02/05/17 20:32 Heparin Sodium (Porcine) (Heparin Sod 1000 units/ml 10ml) 500 unit ONCE PRN IV FOR HD USE ONLY 02/07/17 13:00 02/08/17 23:59 Hydromorphone HCl (Dilaudid) 1 mg Q6H PRN IVP Severe Pain (Pain Scale 7-10) 02/02/17 14:30 02/08/17 08:29 02/07/17 06:05 Iron Sucrose 100 mg/Sodium Chloride 60 ml @ 240 mls/hr BEDTIME IV 02/06/17 21:00 02/10/17 21:14 02/06/17 22:19 Labetalol HCl (Normodyne) 200 mg Q8HR ORAL 02/02/17 14:30 03/03/17 14:29 02/07/17 12:39 Levetiracetam (Keppra) 500 mg DAILY ORAL 02/03/17 09:00 03/04/17 08:59 02/07/17 08:52 Pantoprazole (Protonix) 40 mg BID ORAL 02/02/17 18:00 03/03/17 17:59 02/07/17 08:52 Phenytoin (Dilantin) 200 mg Q12HR ORAL 02/02/17 21:00 03/03/17 20:59 02/07/17 08:52 Sodium Chloride 1,000 ml @ 500 mls/hr Q2H PRN IVLG sbp<90 during hd 02/07/17 13:00 02/08/17 23:59 GI: Plan Problems: (1) Alkaline phosphatase elevation (2) Severe malnutrition (3) Left hemiplegia (4) Anemia (5) GI bleed (6) Elevated CEA (7) Malingering Plan s/p EGD 2016 SUMMARY OF FINDINGS: 1. Large hiatal hernia. 2. Minimum distal esophagitis. 3. Bile reflux. 4. Diffuse gastritis. 5. Prominent fold in the antrum, status post biopsy. 6. Sharp bend in the peripyloric region before going to the duodenum making getting into the duodenum difficult. Abdominal U/S reviewed >> essentially unremarkable exam hepatitis panel >> negative elevated CEA elevated alk phos due to renal failure HIV negative hold off on GI procedures at this time send OB stool to r/o GI bleed ppi daily monitor H&H, prn transfusions if Hgb < 7.0. OT evaluation renal diet fu labs Discussed with Dr. Sandoval. Thank you for this patient referral, we will follow. Ashleigh Marie N.P. Feb 07, 2017 16:53
--- NOTE | 2017-02-07 17:56 | General Progress Note ---
Assessment/Plan Assessment/Plan ASSESSMENT AND RECS: 1. Pancytopenia. Stable at baseline, stool occult negative --> anemia work up reviewed, watch count, transfuse if below 7 --> plt goal above 20K --> monitor for now, if worsens consider bmbx 2. End-stage renal disease. On HD, continue to closely monitor. 4. Anemia of chronic kidney disease. Continue to monitor. 5. Chest pain. Cardiology service following 6. Hypertension 7. S/p nephrectomy 8. History of pericarditis 9. SCDs for DVT prophylaxis Subjective Constitutional: Denies: no symptoms, chills, diaphoresis, fever, malaise, weakness, other HEENT: Denies: no symptoms, eye pain, blurred vision, tearing, double vision, ear pain, ear discharge, nose pain, nose congestion, throat pain, throat swelling, mouth pain, mouth swelling, other Cardiovascular: Denies: no symptoms, chest pain, edema, irregular heart rate, lightheadedness, palpitations, syncope, other Respiratory: Denies: no symptoms, cough, orthopnea, shortness of breath, SOB with excertion, SOB at rest, sputum, stridor, wheezing, other Gastrointestinal/Abdominal: Reports: nausea, Denies: no symptoms, abdomen distended, abdominal pain, black stools, tarry stools, blood in stool, constipated, diarrhea, difficulty swallowing, poor appetite, poor fluid intake, rectal bleeding, vomiting, other Genitourinary: Denies: no symptoms, burning, discharge, frequency, flank pain, hematuria, incontinence, pain, urgency, other Neurologic/Psychiatric: Denies: no symptoms, anxiety, depressed, emotional problems, headache, numbness, paresthesia, pre-existing deficit, seizure, tingling, tremors, weakness, other Endocrine: Denies: no symptoms, excessive sweating, flushing, intolerance to cold, intolerance to heat, increased hunger, increased thirst, increased urine, unexplained weight gain, unexplained weight loss, other Hematologic/Lymphatic: Denies: no symptoms, anemia, easy bleeding, easy bruising, other Allergies: Coded Allergies: KETOROLAC (Verified Allergy, Mild, SOB, 06/28/11) METOCLOPRAMIDE (Verified Allergy, Mild, RASH, 06/28/11) NITROGLYCERIN (Verified Allergy, Mild, SEIZURES, 06/28/11) PENICILLINS (Verified Allergy, Mild, SOB, 06/28/11) PHENYTOIN (Verified Allergy, Mild, RASH, 06/28/11) ACETAMINOPHEN (Verified Allergy, Unknown, Shortness of Breath, 08/31/16) swelling throat, difficulty breathing CODEINE (Unverified Allergy, Unknown, 10/16/16) HYDRALAZINE (Verified Allergy, Unknown, 08/28/16) HYDROCODONE (Verified Allergy, Unknown, Shortness of Breath, 08/31/16) swelling throat, difficulty breathing IBUPROFEN (Verified Allergy, Unknown, RASH, 06/28/11) IODINE (Verified Allergy, Unknown, SHOCK, 06/28/11) POLYSTYRENE SULFONATE (Verified Allergy, Unknown, RASH, 06/28/11) PROMETHAZINE (Verified Allergy, Unknown, RASH, 06/28/11) Subjective c/o nausea Objective Last 24 Hour Vital Signs Date Time Temp Pulse Resp B/P (MAP) Pulse Ox O2 Delivery O2 Flow Rate FiO2 02/07/17 17:41 98.0 02/07/17 16:00 98.0 89 19 160/89 97 02/07/17 12:39 99 163/90 02/07/17 12:39 163/90 02/07/17 11:35 98.2 102 20 170/93 99 Room Air 02/07/17 08:51 98.4 99 20 157/82 100 Room Air 02/07/17 05:49 99 146/82 02/07/17 04:00 97.7 104 16 140/75 100 02/07/17 04:00 Room Air 02/07/17 00:33 106 161/96 98 Room Air 02/07/17 00:00 98.2 111 21 198/104 98 02/07/17 00:00 Room Air 02/06/17 21:00 Room Air 02/06/17 20:00 98.4 96 20 154/90 100 02/06/17 20:00 Room Air Intake and Output 02/06/17 02/07/17 19:00 07:00 Intake Total 240 ml 240 ml Balance 240 ml 240 ml Intake Oral 240 ml 240 ml # Bowel Movements 1 1 Height (Feet): 5 Height (Inches): 9.00 Weight (Pounds): 170 General Appearance: no apparent distress EENT: normal ENT inspection Neck: normal alignment, supple Cardiovascular: normal rate Respiratory/Chest: lungs clear Abdomen: non tender Chavo Alfaro Feb 07, 2017 17:56
--- NOTE | 2017-02-07 19:13 | Pulmonology Progress Note ---
Assessment/Plan Problems: (1) ESRF (end stage renal failure) (2) Severe malnutrition (3) Uncontrolled hypertension (4) Anemia Assessment/Plan GI evaluation reviewed symptomatic treatment HD by nephrology watch wbc H2 blockers dc planning, pt wants to go to a rehab facility. Subjective ROS Limited/Unobtainable: No Interval Events: c/o gastric pain Allergies: Coded Allergies: KETOROLAC (Verified Allergy, Mild, SOB, 06/28/11) METOCLOPRAMIDE (Verified Allergy, Mild, RASH, 06/28/11) NITROGLYCERIN (Verified Allergy, Mild, SEIZURES, 06/28/11) PENICILLINS (Verified Allergy, Mild, SOB, 06/28/11) PHENYTOIN (Verified Allergy, Mild, RASH, 06/28/11) ACETAMINOPHEN (Verified Allergy, Unknown, Shortness of Breath, 08/31/16) swelling throat, difficulty breathing CODEINE (Unverified Allergy, Unknown, 10/16/16) HYDRALAZINE (Verified Allergy, Unknown, 08/28/16) HYDROCODONE (Verified Allergy, Unknown, Shortness of Breath, 08/31/16) swelling throat, difficulty breathing IBUPROFEN (Verified Allergy, Unknown, RASH, 06/28/11) IODINE (Verified Allergy, Unknown, SHOCK, 06/28/11) POLYSTYRENE SULFONATE (Verified Allergy, Unknown, RASH, 06/28/11) PROMETHAZINE (Verified Allergy, Unknown, RASH, 06/28/11) Objective Last 24 Hour Vital Signs Date Time Temp Pulse Resp B/P (MAP) Pulse Ox O2 Delivery O2 Flow Rate FiO2 02/07/17 17:41 98.0 02/07/17 16:00 98.0 89 19 160/89 97 02/07/17 12:39 99 163/90 02/07/17 12:39 163/90 02/07/17 11:35 98.2 102 20 170/93 99 Room Air 02/07/17 08:51 98.4 99 20 157/82 100 Room Air 02/07/17 05:49 99 146/82 02/07/17 04:00 97.7 104 16 140/75 100 02/07/17 04:00 Room Air 02/07/17 00:33 106 161/96 98 Room Air 02/07/17 00:00 98.2 111 21 198/104 98 02/07/17 00:00 Room Air 02/06/17 21:00 Room Air 02/06/17 20:00 98.4 96 20 154/90 100 02/06/17 20:00 Room Air Intake and Output 02/06/17 02/07/17 19:00 07:00 Intake Total 240 ml 240 ml Balance 240 ml 240 ml Intake Oral 240 ml 240 ml # Bowel Movements 1 1 Objective General Appearance: cachectic HEENT: normocephalic, atraumatic Respiratory/Chest: chest wall non-tender, lungs clear Abdomen: normal bowel sounds, soft, non tender Genitourinary: normal external genitalia Skin: no lesions Current Medications Medications (Trade) Dose Ordered Sig/Anant Route PRN Reason Start Time Stop Time Status Last Admin Dose Admin Clonidine HCl (Catapres) 0.1 mg Q8HR ORAL 02/02/17 14:30 03/04/17 14:29 02/07/17 12:39 Diphenhydramine HCl (Benadryl) 25 mg Q6H PRN IVP Itching 02/02/17 16:15 03/03/17 16:14 02/07/17 16:39 Divalproex Sodium (Depakote) 250 mg Q12HR ORAL 02/02/17 21:00 03/03/17 20:59 02/07/17 08:52 Epoetin Rajinder (Procrit (for ESRD on dialysis)) 10,000 units SUN-SUN-SUN SUBQ 02/05/17 21:00 03/07/17 20:59 02/05/17 20:32 Heparin Sodium (Porcine) (Heparin Sod 1000 units/ml 10ml) 500 unit ONCE PRN IV FOR HD USE ONLY 02/07/17 13:00 02/08/17 23:59 Hydromorphone HCl (Dilaudid) 1 mg Q6H PRN IVP Severe Pain (Pain Scale 7-10) 02/02/17 14:30 02/08/17 08:29 02/07/17 16:39 Iron Sucrose 100 mg/Sodium Chloride 60 ml @ 240 mls/hr BEDTIME IV 02/06/17 21:00 02/10/17 21:14 02/06/17 22:19 Labetalol HCl (Normodyne) 200 mg Q8HR ORAL 02/02/17 14:30 1/27/18 14:29 02/07/17 12:39 Levetiracetam (Keppra) 500 mg DAILY ORAL 02/03/17 09:00 03/04/17 08:59 02/07/17 08:52 Pantoprazole (Protonix) 40 mg BID ORAL 02/02/17 18:00 03/03/17 17:59 02/07/17 17:47 Phenytoin (Dilantin) 200 mg Q12HR ORAL 02/02/17 21:00 03/03/17 20:59 02/07/17 08:52 Sodium Chloride 1,000 ml @ 500 mls/hr Q2H PRN IVLG sbp<90 during hd 02/07/17 13:00 02/08/17 23:59 BETHEL PACK Feb 07, 2017 19:13
[2017-02-07] MEDS: Iron Sucrose 100 MG in NS 55 ML IV SCH ×2 (21:00→22:15)
[2017-02-07] MEDS: Epogen (for ESRD on dialysis) SUBQ SCH (22:16)
[2017-02-08 00:55] VITALS: BP 145/80
[2017-02-08 04:00] VITALS: BP 147/82
[2017-02-08] MEDS: Labetalol 200mg tab ORAL SCH ×3 (05:04→22:44)
[2017-02-08 08:00] VITALS: BP 146/84
--- NOTE | 2017-02-08 08:42 | General Progress Note ---
Assessment/Plan Assessment/Plan (1) history of cerebrovascular accident (2) left-sided weakness (3) joint contractures (4) thalamic pain syndrome (5) chronic kidney disease on dialysis We will continue Dilaudid D/w Dr. Calix and he concurred. Subjective Date patient seen: Feb 08, 2017 Time patient seen: 07:00 - am Allergies: Coded Allergies: KETOROLAC (Verified Allergy, Mild, SOB, 06/28/11) METOCLOPRAMIDE (Verified Allergy, Mild, RASH, 06/28/11) NITROGLYCERIN (Verified Allergy, Mild, SEIZURES, 06/28/11) PENICILLINS (Verified Allergy, Mild, SOB, 06/28/11) PHENYTOIN (Verified Allergy, Mild, RASH, 06/28/11) ACETAMINOPHEN (Verified Allergy, Unknown, Shortness of Breath, 08/31/16) swelling throat, difficulty breathing CODEINE (Unverified Allergy, Unknown, 10/16/16) HYDRALAZINE (Verified Allergy, Unknown, 08/28/16) HYDROCODONE (Verified Allergy, Unknown, Shortness of Breath, 08/31/16) swelling throat, difficulty breathing IBUPROFEN (Verified Allergy, Unknown, RASH, 06/28/11) IODINE (Verified Allergy, Unknown, SHOCK, 06/28/11) POLYSTYRENE SULFONATE (Verified Allergy, Unknown, RASH, 06/28/11) PROMETHAZINE (Verified Allergy, Unknown, RASH, 06/28/11) Subjective REVIEW OF SYSTEMS: Denies rash, fever, chills, sweating, dizziness, drowsiness, blurred vision, sore throat, or change in his weight. No shortness of breath. No nausea, vomiting, diarrhea, or blood in stool or urine. No bowel or bladder incontinence. No dysuria. He is complaining of left-sided body pain. SUBJECTIVE: Pt reports no change in his pain however it has been tolerated well on the Dilaudid. He has no new complaints. Objective Last 24 Hour Vital Signs Date Time Temp Pulse Resp B/P (MAP) Pulse Ox O2 Delivery O2 Flow Rate FiO2 02/08/17 05:05 147/82 02/08/17 05:04 147 82/98 02/08/17 04:00 97.5 98 19 147/82 100 Room Air 02/08/17 00:55 98.2 95 20 145/80 100 Room Air 02/07/17 22:45 98.1 02/07/17 22:14 89 121/53 02/07/17 22:14 121/53 02/07/17 20:11 98.1 89 20 121/53 100 Room Air 02/07/17 20:00 Room Air 02/07/17 16:00 98.0 89 19 160/89 97 02/07/17 12:39 99 163/90 02/07/17 12:39 163/90 02/07/17 11:35 98.2 102 20 170/93 99 Room Air 02/07/17 08:51 98.4 99 20 157/82 100 Room Air Intake and Output 02/07/17 02/08/17 19:00 07:00 Intake Total 740 ml 250 ml Output Total 0 ml 0 ml Balance 740 ml 250 ml Intake Oral 740 ml Tube Feeding 250 ml Output Urine Total 0 ml 0 ml # Bowel Movements 1 Laboratory Tests 02/08/17 00:20: Stool Occult Blood Negative Height (Feet): 5 Height (Inches): 9.00 Weight (Pounds): 170 Objective GENERAL: Alert, awake, and oriented. LUNGS: Decreased breath sounds bilaterally. HEART: Regular. ABDOMEN: Tenderness to palpation. EXTREMITIES: No cyanosis. No clubbing. No edema. NEUROLOGICAL: Left-sided joint contractures noted with weakness exhibited in the upper and lower extremities. NANA MATTA Feb 08, 2017 08:42
[2017-02-08] MEDS ORDERED: HYDROmorphone 1mg/ml Carpuject IVP PRN (08:45)
[2017-02-08] MEDS: Phenytoin 100mg cap ORAL SCH ×2 (09:49→22:43)
[2017-02-08] MEDS: DiphenhydrAMINE 50mg/ml Inj IVP PRN ×2 (09:49→19:04)
[2017-02-08] MEDS: Hydromorphone 0.5mg/0.5ml inj IVP PRN ×2 (09:50→19:04)
--- NOTE | 2017-02-08 10:52 | GI Progress Note ---
Assessment/Plan Problems: (1) Uncontrolled hypertension ICD Codes: I10 - Essential (primary) hypertension SNOMED: 81879611 (2) Severe malnutrition ICD Codes: E43 - Unspecified severe protein-calorie malnutrition SNOMED: 67454249 (3) Left hemiplegia ICD Codes: G81.94 - Hemiplegia, unspecified affecting left nondominant side SNOMED: 090646497 (4) Malingering ICD Codes: Z76.5 - Malingerer [conscious simulation] SNOMED: 58429258 (5) Elevated CEA ICD Codes: R97.0 - Elevated carcinoembryonic antigen [CEA] SNOMED: 00451024, 404440776 (6) GI bleed ICD Codes: K92.2 - Gastrointestinal hemorrhage, unspecified SNOMED: 60969170 (7) Anemia ICD Codes: D64.9 - Anemia, unspecified SNOMED: 093649569 Status: stable Status Narrative Discussed with Dr. Sandoval. Assessment/Plan s/p EGD 2016 SUMMARY OF FINDINGS: 1. Large hiatal hernia. 2. Minimum distal esophagitis. 3. Bile reflux. 4. Diffuse gastritis. 5. Prominent fold in the antrum, status post biopsy. 6. Sharp bend in the peripyloric region before going to the duodenum making getting into the duodenum difficult. Abdominal U/S reviewed >> essentially unremarkable exam hepatitis panel >> negative elevated CEA elevated alk phos due to renal failure HIV negative OB stool negative okay for DC per GI standpoint refused labs hold off on GI procedures at this time ppi daily monitor H&H, prn transfusions if Hgb < 7.0. OT evaluation renal diet fu labs Subjective Gastrointestinal/Abdominal: Reports: no symptoms Objective Last 24 Hour Vital Signs Date Time Temp Pulse Resp B/P (MAP) Pulse Ox O2 Delivery O2 Flow Rate FiO2 02/08/17 08:00 97.6 99 20 146/84 99 Room Air 02/08/17 05:05 147/82 02/08/17 05:04 147 82/98 02/08/17 04:00 97.5 98 19 147/82 100 Room Air 02/08/17 00:55 98.2 95 20 145/80 100 Room Air 02/07/17 22:45 98.1 02/07/17 22:14 89 121/53 02/07/17 22:14 121/53 02/07/17 20:11 98.1 89 20 121/53 100 Room Air 02/07/17 20:00 Room Air 02/07/17 16:00 98.0 89 19 160/89 97 02/07/17 12:39 99 163/90 02/07/17 12:39 163/90 02/07/17 11:35 98.2 102 20 170/93 99 Room Air Intake and Output 02/07/17 02/08/17 19:00 07:00 Intake Total 740 ml 250 ml Output Total 0 ml 0 ml Balance 740 ml 250 ml Intake Oral 740 ml Tube Feeding 250 ml Output Urine Total 0 ml 0 ml # Bowel Movements 1 Laboratory Tests Test 02/08/17 00:20 Stool Occult Blood Negative (NEGATIVE) Height (Feet): 5 Height (Inches): 9.00 Weight (Pounds): 170 General Appearance: WD/WN, no apparent distress, alert Cardiovascular: normal rate Respiratory/Chest: normal breath sounds, no respiratory distress Abdominal Exam: normal bowel sounds, non tender, soft Extremities: non-tender Ashleigh Marie N.P. Feb 08, 2017 10:52
[2017-02-08 11:40] VITALS: BP 164/84
--- NOTE | 2017-02-08 13:14 | Diagnostic Imaging Report ---
APPROVED REPORT CPT Code: 70381 Present Symptoms Lower Extremity Pain: Comments: R/O DVT. BILATERAL LOWER EXTREMITY VENOUS DUPLEX: Imaging reveals a patent deep venous system bilaterally. There is no evidence of thrombus within the femoral, popliteal or tibial segments. The greater saphenous veins are also within normal limits. Doppler indicates normal spontaneous flow within these segments.
--- NOTE | 2017-02-08 14:02 | Nephrology Progress Note ---
Assessment/Plan Plan ESRD - for HD tomorrow GI bleed - No GI seen. Anemia of CKD - SAÚL. Subjective Subjective Not vomiting blood anymore. GI noted. For HD tonight. To recheck H+H. Objective Objective Last 24 Hour Vital Signs Date Time Temp Pulse Resp B/P (MAP) Pulse Ox O2 Delivery O2 Flow Rate FiO2 02/08/17 11:40 98.4 100 20 164/84 98 02/08/17 08:00 97.6 99 20 146/84 99 Room Air 02/08/17 05:05 147/82 02/08/17 05:04 147 82/98 02/08/17 04:00 97.5 98 19 147/82 100 Room Air 02/08/17 00:55 98.2 95 20 145/80 100 Room Air 02/07/17 22:45 98.1 02/07/17 22:14 89 121/53 02/07/17 22:14 121/53 02/07/17 20:11 98.1 89 20 121/53 100 Room Air 02/07/17 20:00 Room Air 02/07/17 16:00 98.0 89 19 160/89 97 Intake and Output 02/07/17 02/08/17 19:00 07:00 Intake Total 740 ml 250 ml Output Total 0 ml 0 ml Balance 740 ml 250 ml Intake Oral 740 ml Tube Feeding 250 ml Output Urine Total 0 ml 0 ml # Bowel Movements 1 Laboratory Tests 02/08/17 00:20: Stool Occult Blood Negative Height (Feet): 5 Height (Inches): 9.00 Weight (Pounds): 170 Objective CV RR Lungs CTA Abd SNT. BS+ E No CCe. L Arm contracture. ARNIE SWEET Feb 08, 2017 14:02
[2017-02-08 16:00] VITALS: BP 175/95
--- NOTE | 2017-02-08 18:55 | General Progress Note ---
Assessment/Plan Assessment/Plan ASSESSMENT AND RECS: 1. Pancytopenia. stool occult negative, hepatitis is negative, hiv is negaive, us of the abdomen has been reviewed --> anemia work up reviewed, watch count, transfuse if below 7 --> plt goal above 20K --> monitor for now, if worsens consider bmbx 2. End-stage renal disease. On HD, continue to closely monitor. 4. Anemia of chronic kidney disease. Continue to monitor. 5. Chest pain. Cardiology service following 6. Hypertension 7. S/p nephrectomy 8. History of pericarditis 9. SCDs for DVT prophylaxis Subjective Constitutional: Reports: no symptoms HEENT: Denies: no symptoms, eye pain, blurred vision, tearing, double vision, ear pain, ear discharge, nose pain, nose congestion, throat pain, throat swelling, mouth pain, mouth swelling, other Cardiovascular: Denies: no symptoms, chest pain, edema, irregular heart rate, lightheadedness, palpitations, syncope, other Respiratory: Denies: no symptoms, cough, orthopnea, shortness of breath, SOB with excertion, SOB at rest, sputum, stridor, wheezing, other Gastrointestinal/Abdominal: Denies: no symptoms, abdomen distended, abdominal pain, black stools, tarry stools, blood in stool, constipated, diarrhea, difficulty swallowing, nausea, poor appetite, poor fluid intake, rectal bleeding , vomiting, other Genitourinary: Denies: no symptoms, burning, discharge, frequency, flank pain, hematuria, incontinence, pain, urgency, other Neurologic/Psychiatric: Denies: no symptoms, anxiety, depressed, emotional problems, headache, numbness, paresthesia, pre-existing deficit, seizure, tingling, tremors, weakness, other Endocrine: Denies: no symptoms, excessive sweating, flushing, intolerance to cold, intolerance to heat, increased hunger, increased thirst, increased urine, unexplained weight gain, unexplained weight loss, other Allergies: Coded Allergies: KETOROLAC (Verified Allergy, Mild, SOB, 06/28/11) METOCLOPRAMIDE (Verified Allergy, Mild, RASH, 06/28/11) NITROGLYCERIN (Verified Allergy, Mild, SEIZURES, 06/28/11) PENICILLINS (Verified Allergy, Mild, SOB, 06/28/11) PHENYTOIN (Verified Allergy, Mild, RASH, 06/28/11) ACETAMINOPHEN (Verified Allergy, Unknown, Shortness of Breath, 08/31/16) swelling throat, difficulty breathing CODEINE (Unverified Allergy, Unknown, 10/16/16) HYDRALAZINE (Verified Allergy, Unknown, 08/28/16) HYDROCODONE (Verified Allergy, Unknown, Shortness of Breath, 08/31/16) swelling throat, difficulty breathing IBUPROFEN (Verified Allergy, Unknown, RASH, 06/28/11) IODINE (Verified Allergy, Unknown, SHOCK, 06/28/11) POLYSTYRENE SULFONATE (Verified Allergy, Unknown, RASH, 06/28/11) PROMETHAZINE (Verified Allergy, Unknown, RASH, 06/28/11) Subjective c/o nausea, today less Objective Last 24 Hour Vital Signs Date Time Temp Pulse Resp B/P (MAP) Pulse Ox O2 Delivery O2 Flow Rate FiO2 02/08/17 16:00 98.1 91 20 175/95 100 02/08/17 11:40 98.4 100 20 164/84 98 02/08/17 08:00 97.6 99 20 146/84 99 Room Air 02/08/17 05:05 147/82 02/08/17 05:04 147 82/98 02/08/17 04:00 97.5 98 19 147/82 100 Room Air 02/08/17 00:55 98.2 95 20 145/80 100 Room Air 02/07/17 22:45 98.1 02/07/17 22:14 89 121/53 02/07/17 22:14 121/53 02/07/17 20:11 98.1 89 20 121/53 100 Room Air 02/07/17 20:00 Room Air Intake and Output 02/07/17 02/08/17 19:00 07:00 Intake Total 740 ml 250 ml Output Total 0 ml 0 ml Balance 740 ml 250 ml Intake Oral 740 ml Tube Feeding 250 ml Output Urine Total 0 ml 0 ml # Bowel Movements 1 Laboratory Tests 02/08/17 00:20: Stool Occult Blood Negative Height (Feet): 5 Height (Inches): 9.00 Weight (Pounds): 170 General Appearance: alert EENT: normal ENT inspection Neck: supple Cardiovascular: normal rate Respiratory/Chest: normal breath sounds Abdomen: no organomegaly Extremities: non-tender Edema: 1+ Leg (L), 1+ Leg (R) Edema: mild edema Neurologic: no motor/sensory deficits Chavo Alfaro Feb 08, 2017 18:55
[2017-02-08 19:14] LABS: HEMATOCRIT 18.8 % (42.0-52.0); MEAN CORPUSCULAR VOLUME 96 FL (80-99); PLATELET COUNT 57 K/UL (150-450); RED BLOOD COUNT 1.96 M/UL (4.70-6.10); RED CELL DISTRIBUTION WIDTH 17.3 % (11.6-14.8); WHITE BLOOD COUNT 3.1 K/UL (4.8-10.8)
[2017-02-08 19:18] LABS: HEMOGLOBIN 5.8 G/DL (14.2-18.0)
[2017-02-08 19:34] LABS: ANION GAP 11 mmol/L (5-15); BLOOD UREA NITROGEN 71 mg/dL (7-18); CALCIUM 7.7 MG/DL (8.5-10.1); CARBON DIOXIDE 28 MMOL/L (21-32); CHLORIDE 99 MMOL/L (98-107); CREATININE 5.9 MG/DL (0.55-1.30); POTASSIUM 3.7 MMOL/L (3.5-5.1); SODIUM 138 MMOL/L (136-145)
[2017-02-08 19:48] LABS: ALANINE AMINOTRANSFERASE 6 U/L (12-78); ALBUMIN 2.6 G/DL (3.4-5.0); ALBUMIN/GLOBULIN RATIO 0.8 (1.0-2.7); ALKALINE PHOSPHATASE 3758 U/L (46-116); ASPARTATE AMINO TRANSFERASE 17 U/L (15-37); BILIRUBIN,TOTAL 0.6 MG/DL (0.2-1.0)
[2017-02-08 20:00] VITALS: BP 192/95
--- NOTE | 2017-02-08 20:36 | Pulmonology Progress Note ---
Assessment/Plan Problems: (1) ESRF (end stage renal failure) (2) Severe malnutrition (3) Uncontrolled hypertension (4) Anemia Assessment/Plan GI evaluation symptomatic treatment HD by nephrology watch wbc H2 blockers dc planning, pt wants to go to a rehab facility. Subjective ROS Limited/Unobtainable: No Constitutional: Reports: no symptoms HEENT: Repors: no symptoms Respiratory: Reports: no symptoms Allergies: Coded Allergies: KETOROLAC (Verified Allergy, Mild, SOB, 06/28/11) METOCLOPRAMIDE (Verified Allergy, Mild, RASH, 06/28/11) NITROGLYCERIN (Verified Allergy, Mild, SEIZURES, 06/28/11) PENICILLINS (Verified Allergy, Mild, SOB, 06/28/11) PHENYTOIN (Verified Allergy, Mild, RASH, 06/28/11) ACETAMINOPHEN (Verified Allergy, Unknown, Shortness of Breath, 08/31/16) swelling throat, difficulty breathing CODEINE (Unverified Allergy, Unknown, 10/16/16) HYDRALAZINE (Verified Allergy, Unknown, 08/28/16) HYDROCODONE (Verified Allergy, Unknown, Shortness of Breath, 08/31/16) swelling throat, difficulty breathing IBUPROFEN (Verified Allergy, Unknown, RASH, 06/28/11) IODINE (Verified Allergy, Unknown, SHOCK, 06/28/11) POLYSTYRENE SULFONATE (Verified Allergy, Unknown, RASH, 06/28/11) PROMETHAZINE (Verified Allergy, Unknown, RASH, 06/28/11) Objective Last 24 Hour Vital Signs Date Time Temp Pulse Resp B/P (MAP) Pulse Ox O2 Delivery O2 Flow Rate FiO2 02/08/17 20:00 98.3 101 19 192/95 100 Room Air 02/08/17 18:15 Room Air 02/08/17 16:00 98.1 91 20 175/95 100 02/08/17 11:40 98.4 100 20 164/84 98 02/08/17 08:00 97.6 99 20 146/84 99 Room Air 02/08/17 05:05 147/82 02/08/17 05:04 147 82/98 02/08/17 04:00 97.5 98 19 147/82 100 Room Air 02/08/17 00:55 98.2 95 20 145/80 100 Room Air 02/07/17 22:45 98.1 02/07/17 22:14 89 121/53 02/07/17 22:14 121/53 Intake and Output 02/07/17 02/08/17 19:00 07:00 Intake Total 740 ml 250 ml Output Total 0 ml 0 ml Balance 740 ml 250 ml Intake Oral 740 ml Tube Feeding 250 ml Output Urine Total 0 ml 0 ml # Bowel Movements 1 Objective General Appearance: cachectic HEENT: normocephalic, atraumatic Respiratory/Chest: chest wall non-tender, lungs clear Abdomen: normal bowel sounds, soft, non tender Genitourinary: normal external genitalia Skin: no lesions Laboratory Tests 02/08/17 00:20: Stool Occult Blood Negative 02/08/17 18:15: White Blood Count 3.1L, Red Blood Count 1.96L, Hemoglobin 5.8*L, Hematocrit 18.8L, Mean Corpuscular Volume 96, Mean Corpuscular Hemoglobin 29.5, Mean Corpuscular Hemoglobin Concent 30.7L, Red Cell Distribution Width 17.3H, Platelet Count 57L, Mean Platelet Volume 6.6, Neutrophils (%) (Auto) , Lymphocytes (%) (Auto) , Monocytes (%) (Auto) , Eosinophils (%) (Auto) , Basophils (%) (Auto) , Differential Total Cells Counted 100, Neutrophils % ( Manual) 69, Lymphocytes % (Manual) 19L, Monocytes % (Manual) 8, Eosinophils % ( Manual) 3, Basophils % (Manual) 1, Band Neutrophils 0, Platelet Estimate DecreasedL, Platelet Morphology Normal, Polychromasia 1+, Hypochromasia 3+, Anisocytosis 2+, Sodium Level 138, Potassium Level 3.7, Chloride Level 99, Carbon Dioxide Level 28, Anion Gap 11, Blood Urea Nitrogen 71H, Creatinine 5.9H , Estimat Glomerular Filtration Rate 13.6, Glucose Level 105, Calcium Level 7.7L , Total Bilirubin 0.6, Aspartate Amino Transf (AST/SGOT) 17, Alanine Aminotransferase (ALT/SGPT) 6L, Alkaline Phosphatase 3758H, Total Protein 5.8L, Albumin 2.6L, Globulin 3.2, Albumin/Globulin Ratio 0.8L Current Medications Medications (Trade) Dose Ordered Sig/Anant Route PRN Reason Start Time Stop Time Status Last Admin Dose Admin Clonidine HCl (Catapres) 0.1 mg Q8HR ORAL 02/02/17 14:30 03/04/17 14:29 02/08/17 05:05 Diphenhydramine HCl (Benadryl) 25 mg Q6H PRN IVP Itching 02/02/17 16:15 03/03/17 16:14 02/08/17 19:04 Divalproex Sodium (Depakote) 250 mg Q12HR ORAL 02/02/17 21:00 03/03/17 20:59 02/08/17 09:50 Epoetin Rajinder (Procrit (for ESRD on dialysis)) 10,000 units SUN-SUN-SUN SUBQ 02/05/17 21:00 03/07/17 20:59 02/07/17 22:16 Heparin Sodium (Porcine) (Heparin Sod 1000 units/ml 10ml) 500 unit ONCE PRN IV FOR HD USE ONLY 02/07/17 13:00 02/08/17 23:59 Hydromorphone HCl (Dilaudid) 1 mg Q6H PRN IVP severe pain 02/08/17 09:45 02/15/17 09:44 02/08/17 19:04 Iron Sucrose 100 mg/Sodium Chloride 60 ml @ 240 mls/hr BEDTIME IV 02/06/17 21:00 02/10/17 21:14 02/06/17 22:19 Labetalol HCl (Normodyne) 200 mg Q8HR ORAL 02/02/17 14:30 03/03/17 14:29 02/08/17 05:04 Levetiracetam (Keppra) 500 mg DAILY ORAL 02/03/17 09:00 03/04/17 08:59 02/08/17 09:49 Pantoprazole (Protonix) 40 mg BID ORAL 02/02/17 18:00 03/03/17 17:59 02/08/17 17:51 Phenytoin (Dilantin) 200 mg Q12HR ORAL 02/02/17 21:00 03/03/17 20:59 02/08/17 09:49 Sodium Chloride 1,000 ml @ 500 mls/hr Q2H PRN IVLG sbp<90 during hd 02/07/17 13:00 02/08/17 23:59 BETHEL PACK Feb 08, 2017 20:36
[2017-02-08] MEDS: Iron Sucrose 100 MG in NS 55 ML IV SCH (21:00)
[2017-02-09] VITALS: BP 138/80
[2017-02-09] MEDS: Hydromorphone 0.5mg/0.5ml inj IVP PRN ×4 (01:03→19:43)
[2017-02-09] MEDS: DiphenhydrAMINE 50mg/ml Inj IVP PRN ×4 (01:03→19:43)
[2017-02-09 04:33] VITALS: BP 141/90
[2017-02-09] MEDS: Labetalol 200mg tab ORAL SCH ×3 (06:26→21:30)
[2017-02-09] MEDS: Iron Sucrose 100 MG in NS 55 ML IV SCH ×2 (07:18→21:00)
[2017-02-09 08:00] VITALS: BP 182/96
--- NOTE | 2017-02-09 09:09 | General Progress Note ---
Assessment/Plan Assessment/Plan (1) history of cerebrovascular accident (2) left-sided weakness (3) joint contractures (4) thalamic pain syndrome (5) chronic kidney disease on dialysis We will continue Dilaudid D/w Dr. Calix and he concurred. Subjective Date patient seen: Feb 09, 2017 Time patient seen: 07:00 - am Allergies: Coded Allergies: KETOROLAC (Verified Allergy, Mild, SOB, 06/28/11) METOCLOPRAMIDE (Verified Allergy, Mild, RASH, 06/28/11) NITROGLYCERIN (Verified Allergy, Mild, SEIZURES, 06/28/11) PENICILLINS (Verified Allergy, Mild, SOB, 06/28/11) PHENYTOIN (Verified Allergy, Mild, RASH, 06/28/11) ACETAMINOPHEN (Verified Allergy, Unknown, Shortness of Breath, 08/31/16) swelling throat, difficulty breathing CODEINE (Unverified Allergy, Unknown, 10/16/16) HYDRALAZINE (Verified Allergy, Unknown, 08/28/16) HYDROCODONE (Verified Allergy, Unknown, Shortness of Breath, 08/31/16) swelling throat, difficulty breathing IBUPROFEN (Verified Allergy, Unknown, RASH, 06/28/11) IODINE (Verified Allergy, Unknown, SHOCK, 06/28/11) POLYSTYRENE SULFONATE (Verified Allergy, Unknown, RASH, 06/28/11) PROMETHAZINE (Verified Allergy, Unknown, RASH, 06/28/11) Subjective REVIEW OF SYSTEMS: Denies rash, fever, chills, sweating, dizziness, drowsiness, blurred vision, sore throat, or change in his weight. No shortness of breath. No nausea, vomiting, diarrhea. No bowel or bladder incontinence. No dysuria. He is complaining of left-sided body pain. SUBJECTIVE: Pt is in bed and shows no signs of pain reporting the pain is reduced for a 8/10 to a 1/10 on the Dilaudid. He has no new complaints. Objective Last 24 Hour Vital Signs Date Time Temp Pulse Resp B/P (MAP) Pulse Ox O2 Delivery O2 Flow Rate FiO2 02/09/17 07:51 99.0 02/09/17 06:26 92 148/82 02/09/17 06:25 148/82 02/09/17 04:33 99.0 95 18 141/90 96 Room Air 02/09/17 00:00 98.3 106 18 138/80 100 Room Air 02/08/17 22:44 98 153/98 02/08/17 22:44 153/83 02/08/17 21:15 Room Air 02/08/17 20:00 98.3 101 19 192/95 100 Room Air 02/08/17 18:15 Room Air 02/08/17 16:00 98.1 91 20 175/95 100 02/08/17 11:40 98.4 100 20 164/84 98 Intake and Output 02/08/17 02/09/17 19:00 07:00 Intake Total 480 ml 460 ml Output Total 2100 ml Balance 480 ml -1640 ml Intake Oral 480 ml Blood Product 460 ml Output Urine Total 100 ml Hemodialysis UF 2000 ml Laboratory Tests 02/08/17 18:15: White Blood Count 3.1L, Red Blood Count 1.96L, Hemoglobin 5.8*L, Hematocrit 18.8L, Mean Corpuscular Volume 96, Mean Corpuscular Hemoglobin 29.5, Mean Corpuscular Hemoglobin Concent 30.7L, Red Cell Distribution Width 17.3H, Platelet Count 57L, Mean Platelet Volume 6.6, Neutrophils (%) (Auto) , Lymphocytes (%) (Auto) , Monocytes (%) (Auto) , Eosinophils (%) (Auto) , Basophils (%) (Auto) , Differential Total Cells Counted 100, Neutrophils % ( Manual) 69, Lymphocytes % (Manual) 19L, Monocytes % (Manual) 8, Eosinophils % ( Manual) 3, Basophils % (Manual) 1, Band Neutrophils 0, Platelet Estimate DecreasedL, Platelet Morphology Normal, Polychromasia 1+, Hypochromasia 3+, Anisocytosis 2+, Sodium Level 138, Potassium Level 3.7, Chloride Level 99, Carbon Dioxide Level 28, Anion Gap 11, Blood Urea Nitrogen 71H, Creatinine 5.9H , Estimat Glomerular Filtration Rate 13.6, Glucose Level 105, Calcium Level 7.7L , Total Bilirubin 0.6, Aspartate Amino Transf (AST/SGOT) 17, Alanine Aminotransferase (ALT/SGPT) 6L, Alkaline Phosphatase 3758H, Total Protein 5.8L, Albumin 2.6L, Globulin 3.2, Albumin/Globulin Ratio 0.8L Height (Feet): 5 Height (Inches): 9.00 Weight (Pounds): 170 Objective GENERAL: Alert, awake, and oriented. LUNGS: Decreased breath sounds bilaterally. HEART: Regular. ABDOMEN: Tenderness to palpation. EXTREMITIES: No cyanosis. No clubbing. No edema. NEUROLOGICAL: Left-sided joint contractures noted with weakness exhibited in the upper and lower extremities. ANNA MATTA Feb 09, 2017 09:09
[2017-02-09] MEDS: Phenytoin 100mg cap ORAL SCH ×2 (09:24→21:31)
--- NOTE | 2017-02-09 10:20 | Nephrology Progress Note ---
Assessment/Plan Plan ESRD - HD done yesterday. GI bleed - Hct dropped from 31 on admission to 18! Needs to be scoped . Left message for GI. Had 2 units of PRBCs off HD. To check stat K. May need extra HD today for hyperkalemia. Anemia of CKD - SAÚL. Added Venofer. Subjective Subjective Not vomiting blood anymore. GI noted. For HD tonight. To recheck H+H. Objective Objective Last 24 Hour Vital Signs Date Time Temp Pulse Resp B/P (MAP) Pulse Ox O2 Delivery O2 Flow Rate FiO2 02/09/17 08:00 99.8 93 18 182/96 100 Room Air 02/09/17 07:51 99.0 02/09/17 06:26 92 148/82 02/09/17 06:25 148/82 02/09/17 04:33 99.0 95 18 141/90 96 Room Air 02/09/17 00:00 98.3 106 18 138/80 100 Room Air 02/08/17 22:44 98 153/98 02/08/17 22:44 153/83 02/08/17 21:15 Room Air 02/08/17 20:00 98.3 101 19 192/95 100 Room Air 02/08/17 18:15 Room Air 02/08/17 16:00 98.1 91 20 175/95 100 02/08/17 11:40 98.4 100 20 164/84 98 Intake and Output 02/08/17 02/09/17 19:00 07:00 Intake Total 480 ml 460 ml Output Total 2100 ml Balance 480 ml -1640 ml Intake Oral 480 ml Blood Product 460 ml Output Urine Total 100 ml Hemodialysis UF 2000 ml Laboratory Tests 02/08/17 18:15: White Blood Count 3.1L, Red Blood Count 1.96L, Hemoglobin 5.8*L, Hematocrit 18.8L, Mean Corpuscular Volume 96, Mean Corpuscular Hemoglobin 29.5, Mean Corpuscular Hemoglobin Concent 30.7L, Red Cell Distribution Width 17.3H, Platelet Count 57L, Mean Platelet Volume 6.6, Neutrophils (%) (Auto) , Lymphocytes (%) (Auto) , Monocytes (%) (Auto) , Eosinophils (%) (Auto) , Basophils (%) (Auto) , Differential Total Cells Counted 100, Neutrophils % ( Manual) 69, Lymphocytes % (Manual) 19L, Monocytes % (Manual) 8, Eosinophils % ( Manual) 3, Basophils % (Manual) 1, Band Neutrophils 0, Platelet Estimate DecreasedL, Platelet Morphology Normal, Polychromasia 1+, Hypochromasia 3+, Anisocytosis 2+, Sodium Level 138, Potassium Level 3.7, Chloride Level 99, Carbon Dioxide Level 28, Anion Gap 11, Blood Urea Nitrogen 71H, Creatinine 5.9H , Estimat Glomerular Filtration Rate 13.6, Glucose Level 105, Calcium Level 7.7L , Total Bilirubin 0.6, Aspartate Amino Transf (AST/SGOT) 17, Alanine Aminotransferase (ALT/SGPT) 6L, Alkaline Phosphatase 3758H, Total Protein 5.8L, Albumin 2.6L, Globulin 3.2, Albumin/Globulin Ratio 0.8L Height (Feet): 5 Height (Inches): 9.00 Weight (Pounds): 170 Objective CV RR Lungs CTA Abd SNT. BS+ E No CCe. L Arm contracture. ARNIE SWEET Feb 09, 2017 10:20
--- NOTE | 2017-02-09 11:17 | GI Progress Note ---
Assessment/Plan Problems: (1) Uncontrolled hypertension ICD Codes: I10 - Essential (primary) hypertension SNOMED: 70867042 (2) Severe malnutrition ICD Codes: E43 - Unspecified severe protein-calorie malnutrition SNOMED: 80432881 (3) Left hemiplegia ICD Codes: G81.94 - Hemiplegia, unspecified affecting left nondominant side SNOMED: 797317675 (4) Malingering ICD Codes: Z76.5 - Malingerer [conscious simulation] SNOMED: 43162211 (5) Elevated CEA ICD Codes: R97.0 - Elevated carcinoembryonic antigen [CEA] SNOMED: 14970918, 283455253 (6) GI bleed ICD Codes: K92.2 - Gastrointestinal hemorrhage, unspecified SNOMED: 90253421 (7) Anemia ICD Codes: D64.9 - Anemia, unspecified SNOMED: 238460272 Status: stable Status Narrative Discussed with Dr. Sandoval. Assessment/Plan s/p EGD 2016 SUMMARY OF FINDINGS: 1. Large hiatal hernia. 2. Minimum distal esophagitis. 3. Bile reflux. 4. Diffuse gastritis. 5. Prominent fold in the antrum, status post biopsy. 6. Sharp bend in the peripyloric region before going to the duodenum making getting into the duodenum difficult. Abdominal U/S reviewed >> essentially unremarkable exam hepatitis panel >> negative elevated CEA elevated alk phos due to renal failure HIV negative OB stool negative Hgb drop, no evidence of GI bleed refused labs hold off on GI procedures at this time ppi daily monitor H&H, prn transfusions if Hgb < 7.0. OT evaluation renal diet fu labs Subjective Gastrointestinal/Abdominal: Reports: no symptoms Objective Last 24 Hour Vital Signs Date Time Temp Pulse Resp B/P (MAP) Pulse Ox O2 Delivery O2 Flow Rate FiO2 02/09/17 08:00 99.8 93 18 182/96 100 Room Air 02/09/17 07:51 99.0 02/09/17 06:26 92 148/82 02/09/17 06:25 148/82 02/09/17 04:33 99.0 95 18 141/90 96 Room Air 02/09/17 00:00 98.3 106 18 138/80 100 Room Air 02/08/17 22:44 98 153/98 02/08/17 22:44 153/83 02/08/17 21:15 Room Air 02/08/17 20:00 98.3 101 19 192/95 100 Room Air 02/08/17 18:15 Room Air 02/08/17 16:00 98.1 91 20 175/95 100 02/08/17 11:40 98.4 100 20 164/84 98 Intake and Output 02/08/17 02/09/17 19:00 07:00 Intake Total 480 ml 460 ml Output Total 2100 ml Balance 480 ml -1640 ml Intake Oral 480 ml Blood Product 460 ml Output Urine Total 100 ml Hemodialysis UF 2000 ml Laboratory Tests Test 02/08/17 18:15 White Blood Count 3.1 K/UL (4.8-10.8) L Red Blood Count 1.96 M/UL (4.70-6.10) L Hemoglobin 5.8 G/DL (14.2-18.0) *L Hematocrit 18.8 % (42.0-52.0) L Mean Corpuscular Volume 96 FL (80-99) Mean Corpuscular Hemoglobin 29.5 PG (27.0-31.0) Mean Corpuscular Hemoglobin Concent 30.7 G/DL (32.0-36.0) L Red Cell Distribution Width 17.3 % (11.6-14.8) H Platelet Count 57 K/UL (150-450) L Mean Platelet Volume 6.6 FL (6.5-10.1) Neutrophils (%) (Auto) % (45.0-75.0) Lymphocytes (%) (Auto) % (20.0-45.0) Monocytes (%) (Auto) % (1.0-10.0) Eosinophils (%) (Auto) % (0.0-3.0) Basophils (%) (Auto) % (0.0-2.0) Differential Total Cells Counted 100 Neutrophils % (Manual) 69 % (45-75) Lymphocytes % (Manual) 19 % (20-45) L Monocytes % (Manual) 8 % (1-10) Eosinophils % (Manual) 3 % (0-3) Basophils % (Manual) 1 % (0-2) Band Neutrophils 0 % (0-8) Platelet Estimate Decreased L Platelet Morphology Normal Polychromasia 1+ Hypochromasia 3+ Anisocytosis 2+ Sodium Level 138 MMOL/L (136-145) Potassium Level 3.7 MMOL/L (3.5-5.1) Chloride Level 99 MMOL/L (98-107) Carbon Dioxide Level 28 MMOL/L (21-32) Anion Gap 11 mmol/L (5-15) Blood Urea Nitrogen 71 mg/dL (7-18) H Creatinine 5.9 MG/DL (0.55-1.30) H Estimat Glomerular Filtration Rate 13.6 mL/min (>60) Glucose Level 105 MG/DL (74-106) Calcium Level 7.7 MG/DL (8.5-10.1) L Total Bilirubin 0.6 MG/DL (0.2-1.0) Aspartate Amino Transf (AST/SGOT) 17 U/L (15-37) Alanine Aminotransferase (ALT/SGPT) 6 U/L (12-78) L Alkaline Phosphatase 3758 U/L (46-116) H Total Protein 5.8 G/DL (6.4-8.2) L Albumin 2.6 G/DL (3.4-5.0) L Globulin 3.2 g/dL Albumin/Globulin Ratio 0.8 (1.0-2.7) L Height (Feet): 5 Height (Inches): 9.00 Weight (Pounds): 170 General Appearance: WD/WN, no apparent distress, alert, thin Cardiovascular: normal rate Respiratory/Chest: normal breath sounds, no respiratory distress Abdominal Exam: normal bowel sounds, non tender, soft Extremities: non-tender Ashleigh Marie N.P. Feb 09, 2017 11:17
[2017-02-09 12:00] VITALS: BP 160/102
[2017-02-09 16:00] VITALS: BP 172/97
--- NOTE | 2017-02-09 16:38 | Pulmonology Progress Note ---
Assessment/Plan Assessment/Plan ASSESSMENT ESRD on HD s/p nephrectomy anemia of chronic kidney disease acute anemia due to blood loss s/p blood transfusion GI bleeding severe protein calorie malnutrition elevated CEA elevated alkaline phosphatase HTN heart disease pacemaker hx of CVA with L hemiplegia Hx of chronic pericarditis thrombocytopenia seizure disorder PLAN OF CARE MS floor cardio follows all troponin negative ECG no acute ischemic changes patient was ruled out fro acute Mi no rubs on exam Venous Duplex negative 2D ECHO- per cardio discretion GI follows s/p EGD Sept. 201t with findings of large hiatal hernia, diffuse gastritis , minimum distal esophagitis s/p 2 u PRBC Abdominal US- essentially unremarkable hepatitis panel -negative elevated alk phos likely due to renal failure HIV negative OB stool negative Hgb drop, no clear evidence of GI bleed refused labs per GI hold off on GI procedures at this time continue PPI monitor H&H, prn transfusions with goal to keep Hgb above 7 symptomatic Rx GI prophylaxis on Venofer IV and EPO noted significant thrombocytopenia, stop Depakote HD as per nephro, monitor renal parameters, lytes BP management with current regimen and optimize as needed per nephro O2 HHN prn CXR negative seizure precautions continue Dilantin, Keppra, PT/OT dietary evaluations implemented to improve nutritional status case discussed and evaluated by supervising physician Subjective Allergies: Coded Allergies: KETOROLAC (Verified Allergy, Mild, SOB, 06/28/11) METOCLOPRAMIDE (Verified Allergy, Mild, RASH, 06/28/11) NITROGLYCERIN (Verified Allergy, Mild, SEIZURES, 06/28/11) PENICILLINS (Verified Allergy, Mild, SOB, 06/28/11) PHENYTOIN (Verified Allergy, Mild, RASH, 06/28/11) ACETAMINOPHEN (Verified Allergy, Unknown, Shortness of Breath, 08/31/16) swelling throat, difficulty breathing CODEINE (Unverified Allergy, Unknown, 10/16/16) HYDRALAZINE (Verified Allergy, Unknown, 08/28/16) HYDROCODONE (Verified Allergy, Unknown, Shortness of Breath, 08/31/16) swelling throat, difficulty breathing IBUPROFEN (Verified Allergy, Unknown, RASH, 06/28/11) IODINE (Verified Allergy, Unknown, SHOCK, 06/28/11) POLYSTYRENE SULFONATE (Verified Allergy, Unknown, RASH, 06/28/11) PROMETHAZINE (Verified Allergy, Unknown, RASH, 06/28/11) Subjective no chest pain, no SOB no labs for this am Objective Last 24 Hour Vital Signs Date Time Temp Pulse Resp B/P (MAP) Pulse Ox O2 Delivery O2 Flow Rate FiO2 02/09/17 13:18 96 160/102 02/09/17 13:18 160/102 02/09/17 12:00 99.0 96 20 160/102 100 02/09/17 08:00 99.8 93 18 182/96 100 Room Air 02/09/17 07:51 99.0 02/09/17 06:26 92 148/82 02/09/17 06:25 148/82 02/09/17 04:33 99.0 95 18 141/90 96 Room Air 02/09/17 00:00 98.3 106 18 138/80 100 Room Air 02/08/17 22:44 98 153/98 02/08/17 22:44 153/83 02/08/17 21:15 Room Air 02/08/17 20:00 98.3 101 19 192/95 100 Room Air 02/08/17 18:15 Room Air Intake and Output 02/08/17 02/09/17 19:00 07:00 Intake Total 480 ml 460 ml Output Total 2100 ml Balance 480 ml -1640 ml Intake Oral 480 ml Blood Product 460 ml Output Urine Total 100 ml Hemodialysis UF 2000 ml General Appearance: WD/WN, other - awake, alert, responsive cachetic AA male in NAD HEENT: anicteric, mucous membranes moist Respiratory/Chest: lungs clear, normal breath sounds Cardiovascular: normal peripheral pulses, normal rate, no JVD Abdomen: soft, non tender Extremities: no edema, pedal pulses normal Neurologic/Psychiatric: alert, responsive Musculoskeletal: atrophy Laboratory Tests 02/08/17 18:15: White Blood Count 3.1L, Red Blood Count 1.96L, Hemoglobin 5.8*L, Hematocrit 18.8L, Mean Corpuscular Volume 96, Mean Corpuscular Hemoglobin 29.5, Mean Corpuscular Hemoglobin Concent 30.7L, Red Cell Distribution Width 17.3H, Platelet Count 57L, Mean Platelet Volume 6.6, Neutrophils (%) (Auto) , Lymphocytes (%) (Auto) , Monocytes (%) (Auto) , Eosinophils (%) (Auto) , Basophils (%) (Auto) , Differential Total Cells Counted 100, Neutrophils % ( Manual) 69, Lymphocytes % (Manual) 19L, Monocytes % (Manual) 8, Eosinophils % ( Manual) 3, Basophils % (Manual) 1, Band Neutrophils 0, Other Cell Type Pathologist comment, Platelet Estimate DecreasedL, Platelet Morphology Normal, Polychromasia 1+, Hypochromasia 3+, Anisocytosis 2+, Sodium Level 138, Potassium Level 3.7, Chloride Level 99, Carbon Dioxide Level 28, Anion Gap 11, Blood Urea Nitrogen 71H, Creatinine 5.9H, Estimat Glomerular Filtration Rate 13.6, Glucose Level 105, Calcium Level 7.7L, Total Bilirubin 0.6, Aspartate Amino Transf (AST/SGOT) 17, Alanine Aminotransferase (ALT/SGPT) 6L, Alkaline Phosphatase 3758H, Total Protein 5.8L, Albumin 2.6L, Globulin 3.2, Albumin/ Globulin Ratio 0.8L Current Medications Medications (Trade) Dose Ordered Sig/Anant Route PRN Reason Start Time Stop Time Status Last Admin Dose Admin Clonidine HCl (Catapres) 0.1 mg Q8HR ORAL 02/02/17 14:30 03/04/17 14:29 02/09/17 13:18 Diphenhydramine HCl (Benadryl) 25 mg Q6H PRN IVP Itching 02/02/17 16:15 03/03/17 16:14 02/09/17 13:19 Divalproex Sodium (Depakote) 250 mg Q12HR ORAL 02/02/17 21:00 03/03/17 20:59 02/09/17 09:24 Epoetin Rajinder (Procrit (for ESRD on dialysis)) 10,000 units SUN-SUN-SUN SUBQ 02/05/17 21:00 03/07/17 20:59 02/07/17 22:16 Heparin Sodium (Porcine) (Heparin Sod 1000 units/ml 10ml) 2,000 unit ONCE ONCE IV 02/10/17 10:30 02/10/17 10:31 Hydromorphone HCl (Dilaudid) 1 mg Q6H PRN IVP severe pain 02/08/17 09:45 02/15/17 09:44 02/09/17 13:18 Iron Sucrose 100 mg/Sodium Chloride 60 ml @ 240 mls/hr BEDTIME IV 02/06/17 21:00 02/10/17 21:14 02/09/17 07:18 Labetalol HCl (Normodyne) 200 mg Q8HR ORAL 02/02/17 14:30 03/03/17 14:29 02/09/17 13:18 Levetiracetam (Keppra) 500 mg DAILY ORAL 02/03/17 09:00 03/04/17 08:59 02/09/17 09:24 Pantoprazole (Protonix) 40 mg BID ORAL 02/02/17 18:00 03/03/17 17:59 02/09/17 09:24 Phenytoin (Dilantin) 200 mg Q12HR ORAL 02/02/17 21:00 03/03/17 20:59 02/09/17 09:24 [facility]ettsU[facility] Psych[facility] CenterJuliana Zepeda NP Feb 09, 2017 16:38
--- NOTE | 2017-02-09 19:39 | General Progress Note ---
Assessment/Plan Assessment/Plan ASSESSMENT AND RECS: 1. Pancytopenia. stool occult negative, hepatitis is negative, hiv is negaive, us of the abdomen has been reviewed --> anemia work up reviewed, watch count, transfuse if below 7 --> plt goal above 20K --> monitor for now, if worsens consider bmbx --> agree to stop psych/seizure meds, depakote mainly for low platelets 2. End-stage renal disease. On HD, continue to closely monitor. 4. Anemia of chronic kidney disease. Continue to monitor. 5. Chest pain. Cardiology service following 6. Hypertension 7. S/p nephrectomy 8. History of pericarditis Subjective Constitutional: Reports: no symptoms HEENT: Reports: no symptoms Cardiovascular: Reports: no symptoms Respiratory: Reports: no symptoms Gastrointestinal/Abdominal: Reports: no symptoms Genitourinary: Reports: no symptoms Neurologic/Psychiatric: Reports: no symptoms Endocrine: Reports: no symptoms Hematologic/Lymphatic: Reports: anemia Allergies: Coded Allergies: KETOROLAC (Verified Allergy, Mild, SOB, 06/28/11) METOCLOPRAMIDE (Verified Allergy, Mild, RASH, 06/28/11) NITROGLYCERIN (Verified Allergy, Mild, SEIZURES, 06/28/11) PENICILLINS (Verified Allergy, Mild, SOB, 06/28/11) PHENYTOIN (Verified Allergy, Mild, RASH, 06/28/11) ACETAMINOPHEN (Verified Allergy, Unknown, Shortness of Breath, 08/31/16) swelling throat, difficulty breathing CODEINE (Unverified Allergy, Unknown, 10/16/16) HYDRALAZINE (Verified Allergy, Unknown, 08/28/16) HYDROCODONE (Verified Allergy, Unknown, Shortness of Breath, 08/31/16) swelling throat, difficulty breathing IBUPROFEN (Verified Allergy, Unknown, RASH, 06/28/11) IODINE (Verified Allergy, Unknown, SHOCK, 06/28/11) POLYSTYRENE SULFONATE (Verified Allergy, Unknown, RASH, 06/28/11) PROMETHAZINE (Verified Allergy, Unknown, RASH, 06/28/11) Subjective c/o nausea, today with fatigue Objective Last 24 Hour Vital Signs Date Time Temp Pulse Resp B/P (MAP) Pulse Ox O2 Delivery O2 Flow Rate FiO2 02/09/17 16:00 98.7 84 19 172/97 100 1/5/18 13:18 96 160/102 02/09/17 13:18 160/102 02/09/17 12:00 99.0 96 20 160/102 100 02/09/17 08:00 99.8 93 18 182/96 100 Room Air 02/09/17 07:51 99.0 02/09/17 06:26 92 148/82 02/09/17 06:25 148/82 02/09/17 04:33 99.0 95 18 141/90 96 Room Air 02/09/17 00:00 98.3 106 18 138/80 100 Room Air 02/08/17 22:44 98 153/98 02/08/17 22:44 153/83 02/08/17 21:15 Room Air 02/08/17 20:00 98.3 101 19 192/95 100 Room Air Intake and Output 02/08/17 02/09/17 19:00 07:00 Intake Total 480 ml 460 ml Output Total 2100 ml Balance 480 ml -1640 ml Intake Oral 480 ml Blood Product 460 ml Output Urine Total 100 ml Hemodialysis UF 2000 ml Height (Feet): 5 Height (Inches): 9.00 Weight (Pounds): 170 General Appearance: alert EENT: normal ENT inspection Neck: normal inspection Cardiovascular: normal rate Respiratory/Chest: normal breath sounds Abdomen: non tender Extremities: normal range of motion Edema: 1+ Arm (L), 1+ Arm (R), 1+ Leg (L), 1+ Leg (R) Chavo Alfaro Feb 09, 2017 19:39
[2017-02-09 20:00] VITALS: BP 152/75
[2017-02-09] MEDS: Epogen (for ESRD on dialysis) SUBQ SCH (22:13)
[2017-02-10] VITALS: BP 148/79
[2017-02-10] MEDS: DiphenhydrAMINE 50mg/ml Inj IVP PRN ×4 (01:50→20:32)
[2017-02-10] MEDS: Hydromorphone 0.5mg/0.5ml inj IVP PRN ×4 (01:50→20:33)
[2017-02-10 04:00] VITALS: BP 157/89
[2017-02-10] MEDS: Labetalol 200mg tab ORAL SCH ×3 (05:59→20:32)
[2017-02-10] MEDS: Phenytoin 100mg cap ORAL SCH ×2 (08:22→20:28)
[2017-02-10] MEDS ORDERED: Heparin Sod 1000 units/ml 10ml IV ONE (10:30)
--- NOTE | 2017-02-10 10:41 | General Progress Note ---
Assessment/Plan Problem List: (1) Anemia ICD Codes: D64.9 - Anemia, unspecified SNOMED: 431148077 (2) End stage chronic kidney disease ICD Codes: N18.6 - End stage renal disease SNOMED: 19546909, 864917519 (3) Abdominal pain ICD Codes: R10.9 - Unspecified abdominal pain SNOMED: 02270174 Assessment/Plan s/p EGD 2016 SUMMARY OF FINDINGS: 1. Large hiatal hernia. 2. Minimum distal esophagitis. 3. Bile reflux. 4. Diffuse gastritis. 5. Prominent fold in the antrum, status post biopsy. 6. Sharp bend in the peripyloric region before going to the duodenum making getting into the duodenum difficult. Abdominal U/S reviewed >> essentially unremarkable exam hepatitis panel >> negative elevated CEA elevated alk phos due to renal failure HIV negative OB stool negative Hgb drop, no evidence of GI bleed refused labs hold off on GI procedures at this time ppi daily monitor H&H, prn transfusions if Hgb < 7.0. OT evaluation renal diet fu labs Subjective ROS Limited/Unobtainable: Yes Allergies: Coded Allergies: KETOROLAC (Verified Allergy, Mild, SOB, 06/28/11) METOCLOPRAMIDE (Verified Allergy, Mild, RASH, 06/28/11) NITROGLYCERIN (Verified Allergy, Mild, SEIZURES, 06/28/11) PENICILLINS (Verified Allergy, Mild, SOB, 06/28/11) PHENYTOIN (Verified Allergy, Mild, RASH, 06/28/11) ACETAMINOPHEN (Verified Allergy, Unknown, Shortness of Breath, 08/31/16) swelling throat, difficulty breathing CODEINE (Unverified Allergy, Unknown, 10/16/16) HYDRALAZINE (Verified Allergy, Unknown, 08/28/16) HYDROCODONE (Verified Allergy, Unknown, Shortness of Breath, 08/31/16) swelling throat, difficulty breathing IBUPROFEN (Verified Allergy, Unknown, RASH, 06/28/11) IODINE (Verified Allergy, Unknown, SHOCK, 06/28/11) POLYSTYRENE SULFONATE (Verified Allergy, Unknown, RASH, 06/28/11) PROMETHAZINE (Verified Allergy, Unknown, RASH, 06/28/11) Subjective no event Objective Last 24 Hour Vital Signs Date Time Temp Pulse Resp B/P (MAP) Pulse Ox O2 Delivery O2 Flow Rate FiO2 02/10/17 04:00 98.2 91 20 157/89 100 Room Air 02/10/17 00:00 99.0 95 20 148/79 100 Room Air 02/09/17 21:30 79 152/75 02/09/17 21:30 152/75 02/09/17 20:00 98.4 79 20 152/75 97 Room Air 02/09/17 16:00 98.7 84 19 172/97 100 02/09/17 13:18 96 160/102 02/09/17 13:18 160/102 02/09/17 12:00 99.0 96 20 160/102 100 Intake and Output 02/09/17 02/10/17 19:00 07:00 Intake Total 360 ml 450 ml Balance 360 ml 450 ml Intake Oral 360 ml 450 ml # Voids 1 # Bowel Movements 1 Height (Feet): 5 Height (Inches): 9.00 Weight (Pounds): 170 General Appearance: no apparent distress EENT: normal ENT inspection Neck: supple Cardiovascular: normal rate Respiratory/Chest: decreased breath sounds Abdomen: normal bowel sounds, non tender, soft Extremities: non-tender JEN VALDEZ Feb 10, 2017 10:41
[2017-02-10 11:53] VITALS: BP 176/95
--- NOTE | 2017-02-10 12:12 | Nephrology Progress Note ---
Assessment/Plan Plan ESRD - HD done yesterday. GI bleed - Hct dropped from 31 on admission to 18! Needs to be scoped? Left message for GI. Had 2 units of PRBCs off HD. Anemia of CKD - SAÚL. Added Venofer. Subjective Subjective Coughing blood again. GI noted. For HD tonight. To recheck H+H. Objective Objective Last 24 Hour Vital Signs Date Time Temp Pulse Resp B/P (MAP) Pulse Ox O2 Delivery O2 Flow Rate FiO2 02/10/17 11:53 97.1 93 21 176/95 95 Room Air 02/10/17 08:51 98.2 02/10/17 04:00 98.2 91 20 157/89 100 Room Air 02/10/17 00:00 99.0 95 20 148/79 100 Room Air 02/09/17 21:30 79 152/75 02/09/17 21:30 152/75 02/09/17 20:00 98.4 79 20 152/75 97 Room Air 02/09/17 16:00 98.7 84 19 172/97 100 02/09/17 13:18 96 160/102 02/09/17 13:18 160/102 Intake and Output 02/09/17 02/10/17 19:00 07:00 Intake Total 360 ml 450 ml Balance 360 ml 450 ml Intake Oral 360 ml 450 ml # Voids 1 # Bowel Movements 1 Height (Feet): 5 Height (Inches): 9.00 Weight (Pounds): 170 Objective CV RR Lungs CTA Abd SNT. BS+ E No CCe. L Arm contracture. ARNIE SWEET Feb 10, 2017 12:12
--- NOTE | 2017-02-10 12:48 | Pulmonology Progress Note ---
Assessment/Plan Assessment/Plan ASSESSMENT ESRD on HD s/p nephrectomy anemia of chronic kidney disease acute anemia due to blood loss s/p blood transfusion GI bleeding severe protein calorie malnutrition elevated CEA elevated alkaline phosphatase HTN heart disease pacemaker hx of CVA with L hemiplegia Hx of chronic pericarditis thrombocytopenia seizure disorder PLAN OF CARE MS floor cardio follows all troponin negative ECG no acute ischemic changes patient was ruled out for acute Mi no rubs on exam Venous Duplex negative 2D ECHO- per cardio discretion GI follows s/p EGD Sept. 201t with findings of large hiatal hernia, diffuse gastritis , minimum distal esophagitis s/p 2 u PRBC Abdominal US- essentially unremarkable hepatitis panel -negative elevated alk phos likely due to renal failure HIV negative OB stool negative Hgb drop, no clear evidence of GI bleed refused labs per GI patient refused GI procedure continue PPI monitor H&H, prn transfusions with goal to keep Hgb above 7 symptomatic Rx on Venofer IV and EPO significant thrombocytopenia, off Depakote will get CT chest ( if patient agrees) to r/o pulm abnormalities HD as per nephro, monitor renal parameters, lytes BP management with current regimen and optimize as needed per nephro O2 HHN prn CXR negative seizure precautions continue Dilantin, Keppra, PT/OT dietary evaluations implemented to improve nutritional status case discussed and evaluated by supervising physician Subjective Allergies: Coded Allergies: KETOROLAC (Verified Allergy, Mild, SOB, 06/28/11) METOCLOPRAMIDE (Verified Allergy, Mild, RASH, 06/28/11) NITROGLYCERIN (Verified Allergy, Mild, SEIZURES, 06/28/11) PENICILLINS (Verified Allergy, Mild, SOB, 06/28/11) PHENYTOIN (Verified Allergy, Mild, RASH, 06/28/11) ACETAMINOPHEN (Verified Allergy, Unknown, Shortness of Breath, 08/31/16) swelling throat, difficulty breathing CODEINE (Unverified Allergy, Unknown, 10/16/16) HYDRALAZINE (Verified Allergy, Unknown, 08/28/16) HYDROCODONE (Verified Allergy, Unknown, Shortness of Breath, 08/31/16) swelling throat, difficulty breathing IBUPROFEN (Verified Allergy, Unknown, RASH, 06/28/11) IODINE (Verified Allergy, Unknown, SHOCK, 06/28/11) POLYSTYRENE SULFONATE (Verified Allergy, Unknown, RASH, 06/28/11) PROMETHAZINE (Verified Allergy, Unknown, RASH, 06/28/11) Subjective no chest pain, no SOB no labs for this am spitting blood this am Objective Last 24 Hour Vital Signs Date Time Temp Pulse Resp B/P (MAP) Pulse Ox O2 Delivery O2 Flow Rate FiO2 02/10/17 11:53 97.1 93 21 176/95 95 Room Air 02/10/17 08:51 98.2 02/10/17 04:00 98.2 91 20 157/89 100 Room Air 02/10/17 00:00 99.0 95 20 148/79 100 Room Air 02/09/17 21:30 79 152/75 02/09/17 21:30 152/75 02/09/17 20:00 98.4 79 20 152/75 97 Room Air 02/09/17 16:00 98.7 84 19 172/97 100 02/09/17 13:18 96 160/102 02/09/17 13:18 160/102 Intake and Output 02/09/17 02/10/17 19:00 07:00 Intake Total 360 ml 450 ml Balance 360 ml 450 ml Intake Oral 360 ml 450 ml # Voids 1 # Bowel Movements 1 Objective General Appearance: WD/WN awake, alert, responsive cachetic AA male in NAD HEENT: anicteric, mucous membranes moist Respiratory/Chest: lungs clear, normal breath sounds Cardiovascular: normal peripheral pulses, normal rate, no JVD Abdomen: soft, non tender Extremities: no edema, pedal pulses normal Neurologic/Psychiatric: alert, responsive Musculoskeletal: atrophy Current Medications Medications (Trade) Dose Ordered Sig/Anant Route PRN Reason Start Time Stop Time Status Last Admin Dose Admin Clonidine HCl (Catapres) 0.1 mg Q8HR ORAL 02/02/17 14:30 03/04/17 14:29 02/09/17 21:30 Diphenhydramine HCl (Benadryl) 25 mg Q6H PRN IVP Itching 02/02/17 16:15 03/03/17 16:14 02/10/17 08:21 Epoetin Rajinder (Procrit (for ESRD on dialysis)) 10,000 units MON-WED-FRI SUBQ 02/05/17 21:00 03/07/17 20:59 02/09/17 22:13 Hydromorphone HCl (Dilaudid) 1 mg Q6H PRN IVP severe pain 02/08/17 09:45 02/15/17 09:44 02/10/17 08:21 Iron Sucrose 100 mg/Sodium Chloride 60 ml @ 240 mls/hr BEDTIME IV 02/06/17 21:00 02/10/17 21:14 02/09/17 07:18 Labetalol HCl (Normodyne) 200 mg Q8HR ORAL 02/02/17 14:30 03/03/17 14:29 02/09/17 21:30 Levetiracetam (Keppra) 500 mg DAILY ORAL 02/03/17 09:00 03/04/17 08:59 02/10/17 08:21 Pantoprazole (Protonix) 40 mg BID ORAL 02/02/17 18:00 03/03/17 17:59 02/10/17 08:21 Phenytoin (Dilantin) 200 mg Q12HR ORAL 02/02/17 21:00 03/03/17 20:59 02/10/17 08:22 [facility]Juliana NP Feb 10, 2017 12:48
[2017-02-10] MEDS ORDERED: Tubing IV Blood Pump IV ONE (15:49)
[2017-02-10] MEDS ORDERED: Tubing IV Secondary IV ONE ×2 (15:49→22:41)
[2017-02-10] MEDS ORDERED: NS 500ML ONE (15:49)
[2017-02-10 16:01] VITALS: BP 150/95
[2017-02-10 17:14] LABS: HEMATOCRIT 22.1 % (42.0-52.0); HEMOGLOBIN 7.2 G/DL (14.2-18.0); MEAN CORPUSCULAR VOLUME 93 FL (80-99); PLATELET COUNT 98 K/UL (150-450); RED BLOOD COUNT 2.38 M/UL (4.70-6.10); RED CELL DISTRIBUTION WIDTH 16.4 % (11.6-14.8)
[2017-02-10 17:17] LABS: BASOPHILS % (AUTO) 1.1 % (0.0-2.0); EOSINOPHILS % (AUTO) 5.1 % (0.0-3.0); MONOCYTES % (AUTO) 7.4 % (1.0-10.0); NEUTROPHILS % (AUTO) 66.4 % (45.0-75.0)
[2017-02-10 17:32] LABS: ALANINE AMINOTRANSFERASE < 6 U/L (12-78); ALBUMIN 2.5 G/DL (3.4-5.0); ALBUMIN/GLOBULIN RATIO 0.8 (1.0-2.7); ALKALINE PHOSPHATASE 3901 U/L (46-116); ANION GAP 11 mmol/L (5-15); ASPARTATE AMINO TRANSFERASE 14 U/L (15-37); BILIRUBIN,TOTAL 0.5 MG/DL (0.2-1.0); BLOOD UREA NITROGEN 58 mg/dL (7-18); CALCIUM 7.5 MG/DL (8.5-10.1); CARBON DIOXIDE 24 MMOL/L (21-32); CHLORIDE 102 MMOL/L (98-107); CREATININE 5.5 MG/DL (0.55-1.30); POTASSIUM 3.9 MMOL/L (3.5-5.1); SODIUM 137 MMOL/L (136-145)
[2017-02-10 20:00] VITALS: BP 163/98
[2017-02-10] MEDS: Iron Sucrose 100 MG in NS 55 ML IV SCH (20:48)
--- NOTE | 2017-02-10 23:03 | General Progress Note ---
Assessment/Plan Status: unchanged Assessment/Plan ASSESSMENT AND RECS: #. Pancytopenia. stool occult negative, hepatitis is negative, hiv is negaive, us of the abdomen has been reviewed --> anemia work up reviewed, watch count, transfuse if below 7 --> plt goal above 20K --> monitor for now, if worsens consider bmbx --> agree to stop psych/seizure meds, depakote mainly for low platelets #. End-stage renal disease. On HD, continue to closely monitor. #. Anemia of chronic kidney disease. Continue to monitor. #. Chest pain. Cardiology service following #. Hypertension #. S/p nephrectomy #. History of pericarditis Subjective Date patient seen: Feb 10, 2017 Hematologic/Lymphatic: Reports: anemia, other Allergies: Coded Allergies: KETOROLAC (Verified Allergy, Mild, SOB, 06/28/11) METOCLOPRAMIDE (Verified Allergy, Mild, RASH, 06/28/11) NITROGLYCERIN (Verified Allergy, Mild, SEIZURES, 06/28/11) PENICILLINS (Verified Allergy, Mild, SOB, 06/28/11) PHENYTOIN (Verified Allergy, Mild, RASH, 06/28/11) ACETAMINOPHEN (Verified Allergy, Unknown, Shortness of Breath, 08/31/16) swelling throat, difficulty breathing CODEINE (Unverified Allergy, Unknown, 10/16/16) HYDRALAZINE (Verified Allergy, Unknown, 08/28/16) HYDROCODONE (Verified Allergy, Unknown, Shortness of Breath, 08/31/16) swelling throat, difficulty breathing IBUPROFEN (Verified Allergy, Unknown, RASH, 06/28/11) IODINE (Verified Allergy, Unknown, SHOCK, 06/28/11) POLYSTYRENE SULFONATE (Verified Allergy, Unknown, RASH, 06/28/11) PROMETHAZINE (Verified Allergy, Unknown, RASH, 06/28/11) Subjective Resting in bed, c/o fatigue, no major events. Objective Last 24 Hour Vital Signs Date Time Temp Pulse Resp B/P (MAP) Pulse Ox O2 Delivery O2 Flow Rate FiO2 02/10/17 20:32 100 163/98 02/10/17 20:32 163/98 02/10/17 20:00 99.1 100 20 163/98 100 02/10/17 18:30 Room Air 02/10/17 16:01 97.0 92 20 150/95 97 Nasal Cannula 1/6/18 15:30 Room Air 02/10/17 14:50 97.1 02/10/17 14:19 93 176/95 02/10/17 14:19 176/95 02/10/17 11:53 97.1 93 21 176/95 95 Room Air 02/10/17 04:00 98.2 91 20 157/89 100 Room Air 02/10/17 00:00 99.0 95 20 148/79 100 Room Air Intake and Output 02/09/17 02/10/17 19:00 07:00 Intake Total 360 ml 450 ml Balance 360 ml 450 ml Intake Oral 360 ml 450 ml # Voids 1 # Bowel Movements 1 Laboratory Tests 02/10/17 04:00: Sodium Level 137, Potassium Level 3.9, Chloride Level 102, Carbon Dioxide Level 24, Anion Gap 11, Blood Urea Nitrogen 58H, Creatinine 5.5H, Estimat Glomerular Filtration Rate 14.8, Glucose Level 102, Calcium Level 7.5L, Total Bilirubin 0.5 , Aspartate Amino Transf (AST/SGOT) 14L, Alanine Aminotransferase (ALT/SGPT) < 6L, Alkaline Phosphatase 3901H, Total Protein 5.7L, Albumin 2.5L, Globulin 3.2, Albumin/Globulin Ratio 0.8L 02/10/17 16:45: White Blood Count 4.0L, Red Blood Count 2.38L, Hemoglobin 7.2L, Hematocrit 22.1L , Mean Corpuscular Volume 93, Mean Corpuscular Hemoglobin 30.2, Mean Corpuscular Hemoglobin Concent 32.5, Red Cell Distribution Width 16.4H, Platelet Count 98L, Mean Platelet Volume 6.5, Neutrophils (%) (Auto) 66.4, Lymphocytes (%) (Auto) 20.0, Monocytes (%) (Auto) 7.4, Eosinophils (%) (Auto) 5.1H, Basophils (%) (Auto) 1.1 Height (Feet): 5 Height (Inches): 9.00 Weight (Pounds): 170 EENT: normal ENT inspection Neck: supple Cardiovascular: normal rate Respiratory/Chest: lungs clear, normal breath sounds Abdomen: non tender, soft Extremities: non-tender Edema: 1+ Arm (L), 1+ Arm (R), 1+ Leg (L), 1+ Leg (R) Kleynberg,Chavo L. Feb 10, 2017 23:03
[2017-02-11] VITALS: BP 146/85
[2017-02-11] MEDS: DiphenhydrAMINE 50mg/ml Inj IVP PRN ×4 (02:37→20:47)
[2017-02-11] MEDS: Hydromorphone 0.5mg/0.5ml inj IVP PRN ×4 (02:37→20:47)
[2017-02-11 04:00] VITALS: BP 148/89
[2017-02-11] MEDS: Labetalol 200mg tab ORAL SCH ×3 (06:11→22:00)
[2017-02-11 08:00] VITALS: BP 166/104
--- NOTE | 2017-02-11 08:38 | General Progress Note ---
Assessment/Plan Problem List: (1) Anemia ICD Codes: D64.9 - Anemia, unspecified SNOMED: 256078357 (2) End stage chronic kidney disease ICD Codes: N18.6 - End stage renal disease SNOMED: 70477161, 254321973 (3) Abdominal pain ICD Codes: R10.9 - Unspecified abdominal pain SNOMED: 53519329 Assessment/Plan s/p EGD 2016 SUMMARY OF FINDINGS: 1. Large hiatal hernia. 2. Minimum distal esophagitis. 3. Bile reflux. 4. Diffuse gastritis. 5. Prominent fold in the antrum, status post biopsy. 6. Sharp bend in the peripyloric region before going to the duodenum making getting into the duodenum difficult. Abdominal U/S reviewed >> essentially unremarkable exam hepatitis panel >> negative elevated CEA elevated alk phos due to renal failure HIV negative OB stool negative Hgb drop, no evidence of GI bleed hold off on GI procedures at this time ppi daily monitor H&H, prn transfusions if Hgb < 7.0. renal diet fu labs Subjective ROS Limited/Unobtainable: Yes Allergies: Coded Allergies: KETOROLAC (Verified Allergy, Mild, SOB, 06/28/11) METOCLOPRAMIDE (Verified Allergy, Mild, RASH, 06/28/11) NITROGLYCERIN (Verified Allergy, Mild, SEIZURES, 06/28/11) PENICILLINS (Verified Allergy, Mild, SOB, 06/28/11) PHENYTOIN (Verified Allergy, Mild, RASH, 06/28/11) ACETAMINOPHEN (Verified Allergy, Unknown, Shortness of Breath, 08/31/16) swelling throat, difficulty breathing CODEINE (Unverified Allergy, Unknown, 10/16/16) HYDRALAZINE (Verified Allergy, Unknown, 08/28/16) HYDROCODONE (Verified Allergy, Unknown, Shortness of Breath, 08/31/16) swelling throat, difficulty breathing IBUPROFEN (Verified Allergy, Unknown, RASH, 06/28/11) IODINE (Verified Allergy, Unknown, SHOCK, 06/28/11) POLYSTYRENE SULFONATE (Verified Allergy, Unknown, RASH, 06/28/11) PROMETHAZINE (Verified Allergy, Unknown, RASH, 06/28/11) Subjective no event Objective Last 24 Hour Vital Signs Date Time Temp Pulse Resp B/P (MAP) Pulse Ox O2 Delivery O2 Flow Rate FiO2 02/11/17 06:11 91 148/89 1/7/18 06:11 148/89 02/11/17 04:00 100 Room Air 02/11/17 04:00 98.5 91 20 148/89 100 02/11/17 00:00 98.8 93 18 146/85 100 02/11/17 00:00 100 Room Air 02/10/17 20:32 100 163/98 02/10/17 20:32 163/98 02/10/17 20:00 99.1 100 20 163/98 100 02/10/17 20:00 100 Room Air 02/10/17 18:30 Room Air 02/10/17 16:01 97.0 92 20 150/95 97 Nasal Cannula 02/10/17 15:30 Room Air 02/10/17 14:50 97.1 02/10/17 14:19 93 176/95 02/10/17 14:19 176/95 02/10/17 11:53 97.1 93 21 176/95 95 Room Air Intake and Output 02/10/17 02/11/17 19:00 07:00 Intake Total 720 ml Balance 720 ml Intake Oral 720 ml # Voids 1 # Bowel Movements 1 Laboratory Tests 02/10/17 16:45: White Blood Count 4.0L, Red Blood Count 2.38L, Hemoglobin 7.2L, Hematocrit 22.1L , Mean Corpuscular Volume 93, Mean Corpuscular Hemoglobin 30.2, Mean Corpuscular Hemoglobin Concent 32.5, Red Cell Distribution Width 16.4H, Platelet Count 98L, Mean Platelet Volume 6.5, Neutrophils (%) (Auto) 66.4, Lymphocytes (%) (Auto) 20.0, Monocytes (%) (Auto) 7.4, Eosinophils (%) (Auto) 5.1H, Basophils (%) (Auto) 1.1 Height (Feet): 5 Height (Inches): 9.00 Weight (Pounds): 170 General Appearance: no apparent distress EENT: normal ENT inspection Neck: supple Cardiovascular: normal rate Respiratory/Chest: decreased breath sounds Abdomen: normal bowel sounds, non tender, soft Extremities: non-tender JEN VALDEZ Feb 11, 2017 08:38
[2017-02-11] MEDS: Phenytoin 100mg cap ORAL SCH ×2 (08:40→20:46)
[2017-02-11 12:00] VITALS: BP 168/94
--- NOTE | 2017-02-11 13:52 | Nephrology Progress Note ---
Assessment/Plan Plan ESRD - HD GI bleed - Hct dropped from 31 on admission to 18! Needs to be scoped? yesterday Hct 22 Recheck on HD tomorrow. If stable DC home. Had 2 units of PRBCs off HD. Anemia of CKD - SAÚL. Added Venofer. Subjective Subjective Still c/o vomiting blood. Objective Objective Last 24 Hour Vital Signs Date Time Temp Pulse Resp B/P (MAP) Pulse Ox O2 Delivery O2 Flow Rate FiO2 02/11/17 12:00 98.1 95 21 168/94 100 02/11/17 09:04 98.5 02/11/17 08:00 97.9 89 19 166/104 100 02/11/17 06:11 91 148/89 02/11/17 06:11 148/89 02/11/17 04:00 100 Room Air 02/11/17 04:00 98.5 91 20 148/89 100 02/11/17 00:00 98.8 93 18 146/85 100 02/11/17 00:00 100 Room Air 02/10/17 20:32 100 163/98 02/10/17 20:32 163/98 02/10/17 20:00 99.1 100 20 163/98 100 02/10/17 20:00 100 Room Air 02/10/17 18:30 Room Air 02/10/17 16:01 97.0 92 20 150/95 97 Nasal Cannula 02/10/17 15:30 Room Air 02/10/17 14:19 93 176/95 02/10/17 14:19 176/95 Intake and Output 02/10/17 02/11/17 19:00 07:00 Intake Total 720 ml Balance 720 ml Intake Oral 720 ml # Voids 1 # Bowel Movements 1 Laboratory Tests 02/10/17 16:45: White Blood Count 4.0L, Red Blood Count 2.38L, Hemoglobin 7.2L, Hematocrit 22.1L , Mean Corpuscular Volume 93, Mean Corpuscular Hemoglobin 30.2, Mean Corpuscular Hemoglobin Concent 32.5, Red Cell Distribution Width 16.4H, Platelet Count 98L, Mean Platelet Volume 6.5, Neutrophils (%) (Auto) 66.4, Lymphocytes (%) (Auto) 20.0, Monocytes (%) (Auto) 7.4, Eosinophils (%) (Auto) 5.1H, Basophils (%) (Auto) 1.1 Height (Feet): 5 Height (Inches): 9.00 Weight (Pounds): 170 Objective CV RR Lungs CTA Abd SNT. BS+ E No CCe. L Arm contracture. ARNIE SWEET Feb 11, 2017 13:52
[2017-02-11] MEDS ORDERED: Heparin Sod 1000 units/ml 10ml IV PRN (14:00)
[2017-02-11 14:02] LABS: BASOPHILS % (AUTO) 1.3 % (0.0-2.0); EOSINOPHILS % (AUTO) 4.4 % (0.0-3.0); HEMATOCRIT 30.9 % (42.0-52.0); HEMOGLOBIN 9.9 G/DL (14.2-18.0); LYMPHOCYTES % (AUTO) 19.9 % (20.0-45.0); MEAN CORPUSCULAR VOLUME 93 FL (80-99); MONOCYTES % (AUTO) 10.3 % (1.0-10.0); NEUTROPHILS % (AUTO) 64.1 % (45.0-75.0); PLATELET COUNT 111 K/UL (150-450); RED BLOOD COUNT 3.32 M/UL (4.70-6.10); RED CELL DISTRIBUTION WIDTH 16.2 % (11.6-14.8); WHITE BLOOD COUNT 4.4 K/UL (4.8-10.8)
--- NOTE | 2017-02-11 14:19 | General Progress Note ---
Assessment/Plan Assessment/Plan (1) history of cerebrovascular accident (2) left-sided weakness (3) joint contractures (4) thalamic pain syndrome (5) chronic kidney disease on dialysis We will continue Dilaudid D/w Dr. Calix and he concurred. Subjective Date patient seen: Feb 11, 2017 Time patient seen: 01:00 - pm Allergies: Coded Allergies: KETOROLAC (Verified Allergy, Mild, SOB, 06/28/11) METOCLOPRAMIDE (Verified Allergy, Mild, RASH, 06/28/11) NITROGLYCERIN (Verified Allergy, Mild, SEIZURES, 06/28/11) PENICILLINS (Verified Allergy, Mild, SOB, 06/28/11) PHENYTOIN (Verified Allergy, Mild, RASH, 06/28/11) ACETAMINOPHEN (Verified Allergy, Unknown, Shortness of Breath, 08/31/16) swelling throat, difficulty breathing CODEINE (Unverified Allergy, Unknown, 10/16/16) HYDRALAZINE (Verified Allergy, Unknown, 08/28/16) HYDROCODONE (Verified Allergy, Unknown, Shortness of Breath, 08/31/16) swelling throat, difficulty breathing IBUPROFEN (Verified Allergy, Unknown, RASH, 06/28/11) IODINE (Verified Allergy, Unknown, SHOCK, 06/28/11) POLYSTYRENE SULFONATE (Verified Allergy, Unknown, RASH, 06/28/11) PROMETHAZINE (Verified Allergy, Unknown, RASH, 06/28/11) Subjective REVIEW OF SYSTEMS: Denies rash, fever, chills, sweating, dizziness, drowsiness, blurred vision, sore throat, or change in his weight. No shortness of breath. No nausea, vomiting, diarrhea. No bowel or bladder incontinence. No dysuria. He is complaining of left-sided body pain. SUBJECTIVE: Pt reports that he is doing well and his pain has been tolerated on the Dilaudid with no new complaints. Objective Last 24 Hour Vital Signs Date Time Temp Pulse Resp B/P (MAP) Pulse Ox O2 Delivery O2 Flow Rate FiO2 02/11/17 12:00 98.1 95 21 168/94 100 02/11/17 09:04 98.5 02/11/17 08:00 97.9 89 19 166/104 100 02/11/17 06:11 91 148/89 02/11/17 06:11 148/89 02/11/17 04:00 100 Room Air 02/11/17 04:00 98.5 91 20 148/89 100 02/11/17 00:00 98.8 93 18 146/85 100 02/11/17 00:00 100 Room Air 02/10/17 20:32 100 163/98 02/10/17 20:32 163/98 02/10/17 20:00 99.1 100 20 163/98 100 02/10/17 20:00 100 Room Air 02/10/17 18:30 Room Air 02/10/17 16:01 97.0 92 20 150/95 97 Nasal Cannula 02/10/17 15:30 Room Air 02/10/17 14:19 93 176/95 02/10/17 14:19 176/95 Intake and Output 02/10/17 02/11/17 19:00 07:00 Intake Total 720 ml Balance 720 ml Intake Oral 720 ml # Voids 1 # Bowel Movements 1 Laboratory Tests 02/10/17 16:45: White Blood Count 4.0L, Red Blood Count 2.38L, Hemoglobin 7.2L, Hematocrit 22.1L , Mean Corpuscular Volume 93, Mean Corpuscular Hemoglobin 30.2, Mean Corpuscular Hemoglobin Concent 32.5, Red Cell Distribution Width 16.4H, Platelet Count 98L, Mean Platelet Volume 6.5, Neutrophils (%) (Auto) 66.4, Lymphocytes (%) (Auto) 20.0, Monocytes (%) (Auto) 7.4, Eosinophils (%) (Auto) 5.1H, Basophils (%) (Auto) 1.1 02/11/17 13:52: White Blood Count 4.4L, Red Blood Count 3.32L, Hemoglobin 9.9#L, Hematocrit 30.9 #L, Mean Corpuscular Volume 93, Mean Corpuscular Hemoglobin 29.7, Mean Corpuscular Hemoglobin Concent 32.0, Red Cell Distribution Width 16.2H, Platelet Count 111L, Mean Platelet Volume 6.3L, Neutrophils (%) (Auto) 64.1, Lymphocytes (%) (Auto) 19.9L, Monocytes (%) (Auto) 10.3H, Eosinophils (%) (Auto ) 4.4H, Basophils (%) (Auto) 1.3 Height (Feet): 5 Height (Inches): 9.00 Weight (Pounds): 170 Objective GENERAL: Alert, awake, and oriented. LUNGS: Decreased breath sounds bilaterally. HEART: Regular. ABDOMEN: Tenderness to palpation. EXTREMITIES: No cyanosis. No clubbing. No edema. NEUROLOGICAL: Left-sided joint contractures noted with weakness exhibited in the upper and lower extremities. ANNA MATTA. Feb 11, 2017 14:19
--- NOTE | 2017-02-11 15:59 | Pulmonology Progress Note ---
Assessment/Plan Assessment/Plan ASSESSMENT ESRD on HD s/p nephrectomy anemia of chronic kidney disease acute anemia due to blood loss s/p blood transfusion GI bleeding severe protein calorie malnutrition elevated CEA elevated alkaline phosphatase HTN heart disease pacemaker hx of CVA with L hemiplegia Hx of chronic pericarditis thrombocytopenia seizure disorder PLAN OF CARE MS floor cardio follows all troponin negative ECG no acute ischemic changes patient was ruled out for acute Mi no rubs on exam Venous Duplex negative 2D ECHO- per cardio discretion GI follows s/p EGD 2016 with findings of large hiatal hernia, diffuse gastritis , minimum distal esophagitis s/p 2 u PRBC Abdominal US- essentially unremarkable hepatitis panel -negative elevated alk phos likely due to renal failure HIV negative OB stool negative Hgb drop, no clear evidence of GI bleed per GI patient refused GI procedure continue PPI monitor H&H, prn transfusions with goal to keep Hgb above 7 symptomatic Rx on Venofer IV and EPO significant thrombocytopenia, off Depakote will get CT chest ( if patient agrees) to r/o pulm abnormalities HD as per nephro, monitor renal parameters, lytes BP management with current regimen and optimize as needed per nephro O2 HHN prn CXR negative seizure precautions continue Dilantin, Keppra, PT/OT dietary evaluations implemented to improve nutritional status HD for am if stable HH can be dc as per nephro case discussed and evaluated by supervising physician Subjective Allergies: Coded Allergies: KETOROLAC (Verified Allergy, Mild, SOB, 06/28/11) METOCLOPRAMIDE (Verified Allergy, Mild, RASH, 06/28/11) NITROGLYCERIN (Verified Allergy, Mild, SEIZURES, 06/28/11) PENICILLINS (Verified Allergy, Mild, SOB, 06/28/11) PHENYTOIN (Verified Allergy, Mild, RASH, 06/28/11) ACETAMINOPHEN (Verified Allergy, Unknown, Shortness of Breath, 08/31/16) swelling throat, difficulty breathing CODEINE (Unverified Allergy, Unknown, 10/16/16) HYDRALAZINE (Verified Allergy, Unknown, 08/28/16) HYDROCODONE (Verified Allergy, Unknown, Shortness of Breath, 08/31/16) swelling throat, difficulty breathing IBUPROFEN (Verified Allergy, Unknown, RASH, 06/28/11) IODINE (Verified Allergy, Unknown, SHOCK, 06/28/11) POLYSTYRENE SULFONATE (Verified Allergy, Unknown, RASH, 06/28/11) PROMETHAZINE (Verified Allergy, Unknown, RASH, 06/28/11) Subjective no chest pain, no SOB HH dropped on 02/10 - 7.2/22.1 s/p 2 u RBC HH up this am -9.9/30.9 Objective Last 24 Hour Vital Signs Date Time Temp Pulse Resp B/P (MAP) Pulse Ox O2 Delivery O2 Flow Rate FiO2 02/11/17 15:25 98.1 02/11/17 14:55 95 168/94 02/11/17 14:55 168/94 02/11/17 12:00 98.1 95 21 168/94 100 02/11/17 08:00 97.9 89 19 166/104 100 02/11/17 06:11 91 148/89 02/11/17 06:11 148/89 02/11/17 04:00 100 Room Air 02/11/17 04:00 98.5 91 20 148/89 100 02/11/17 00:00 98.8 93 18 146/85 100 02/11/17 00:00 100 Room Air 02/10/17 20:32 100 163/98 02/10/17 20:32 163/98 02/10/17 20:00 99.1 100 20 163/98 100 02/10/17 20:00 100 Room Air 02/10/17 18:30 Room Air 02/10/17 16:01 97.0 92 20 150/95 97 Nasal Cannula Intake and Output 02/10/17 02/11/17 19:00 07:00 Intake Total 720 ml Balance 720 ml Intake Oral 720 ml # Voids 1 # Bowel Movements 1 Objective General Appearance: WD/WN awake, alert, responsive cachetic AA male in NAD HEENT: anicteric, mucous membranes moist Respiratory/Chest: lungs clear, normal breath sounds Cardiovascular: normal peripheral pulses, normal rate, no JVD Abdomen: soft, non tender Extremities: no edema, pedal pulses normal Neurologic/Psychiatric: alert, responsive Musculoskeletal: atrophy Laboratory Tests 02/10/17 16:45: White Blood Count 4.0L, Red Blood Count 2.38L, Hemoglobin 7.2L, Hematocrit 22.1L , Mean Corpuscular Volume 93, Mean Corpuscular Hemoglobin 30.2, Mean Corpuscular Hemoglobin Concent 32.5, Red Cell Distribution Width 16.4H, Platelet Count 98L, Mean Platelet Volume 6.5, Neutrophils (%) (Auto) 66.4, Lymphocytes (%) (Auto) 20.0, Monocytes (%) (Auto) 7.4, Eosinophils (%) (Auto) 5.1H, Basophils (%) (Auto) 1.1 02/11/17 13:52: White Blood Count 4.4L, Red Blood Count 3.32L, Hemoglobin 9.9#L, Hematocrit 30.9 #L, Mean Corpuscular Volume 93, Mean Corpuscular Hemoglobin 29.7, Mean Corpuscular Hemoglobin Concent 32.0, Red Cell Distribution Width 16.2H, Platelet Count 111L, Mean Platelet Volume 6.3L, Neutrophils (%) (Auto) 64.1, Lymphocytes (%) (Auto) 19.9L, Monocytes (%) (Auto) 10.3H, Eosinophils (%) (Auto ) 4.4H, Basophils (%) (Auto) 1.3 Current Medications Medications (Trade) Dose Ordered Sig/Anant Route PRN Reason Start Time Stop Time Status Last Admin Dose Admin Clonidine HCl (Catapres) 0.1 mg Q8HR ORAL 02/02/17 14:30 03/04/17 14:29 02/11/17 14:55 Diphenhydramine HCl (Benadryl) 25 mg Q6H PRN IVP Itching 02/02/17 16:15 03/03/17 16:14 02/11/17 14:55 Epoetin Rajinder (Procrit (for ESRD on dialysis)) 10,000 units SUN-SUN-SUN SUBQ 02/05/17 21:00 03/07/17 20:59 02/09/17 22:13 Heparin Sodium (Porcine) (Heparin Sod 1000 units/ml 10ml) 500 unit ONCE PRN IV FOR HD USE ONLY 02/11/17 14:00 02/12/17 23:59 Hydromorphone HCl (Dilaudid) 1 mg Q6H PRN IVP severe pain 02/08/17 09:45 02/15/17 09:44 02/11/17 14:55 Labetalol HCl (Normodyne) 200 mg Q8HR ORAL 02/02/17 14:30 03/03/17 14:29 02/11/17 14:55 Levetiracetam (Keppra) 500 mg DAILY ORAL 02/03/17 09:00 03/04/17 08:59 02/11/17 08:35 Pantoprazole (Protonix) 40 mg BID ORAL 02/02/17 18:00 03/03/17 17:59 02/11/17 08:35 Phenytoin (Dilantin) 200 mg Q12HR ORAL 02/02/17 21:00 03/03/17 20:59 02/11/17 08:40 Fritz ([facility])Juliana NP Feb 11, 2017 15:59
[2017-02-11 16:00] VITALS: BP 149/88
[2017-02-11 20:00] VITALS: BP 148/98
--- NOTE | 2017-02-11 22:51 | General Progress Note ---
Assessment/Plan Status: unchanged Assessment/Plan ASSESSMENT AND RECS: #. Pancytopenia. stool occult negative, hepatitis is negative, hiv is negaive, us of the abdomen has been reviewed --> anemia work up reviewed, watch count, transfuse if below 7 --> S/P transfusion, no complications --> plt goal above 20K --> monitor for now, if worsens consider bmbx --> agree to stop psych/seizure meds, depakote mainly for low platelets #. End-stage renal disease. On HD, continue to closely monitor. #. Anemia of chronic kidney disease. Continue to monitor. #. Chest pain. Cardiology service following #. Hypertension #. S/p nephrectomy #. History of pericarditis Subjective Date patient seen: Feb 11, 2017 Constitutional: Denies: no symptoms, chills, diaphoresis, fever, malaise, weakness, other HEENT: Denies: no symptoms, eye pain, blurred vision, tearing, double vision, ear pain, ear discharge, nose pain, nose congestion, throat pain, throat swelling, mouth pain, mouth swelling, other Cardiovascular: Denies: no symptoms, chest pain, edema, irregular heart rate, lightheadedness, palpitations, syncope, other Respiratory: Denies: no symptoms, cough, orthopnea, shortness of breath, SOB with excertion, SOB at rest, sputum, stridor, wheezing, other Gastrointestinal/Abdominal: Denies: no symptoms, abdomen distended, abdominal pain, black stools, tarry stools, blood in stool, constipated, diarrhea, difficulty swallowing, nausea, poor appetite, poor fluid intake, rectal bleeding , vomiting, other Genitourinary: Denies: no symptoms, burning, discharge, frequency, flank pain, hematuria, incontinence, pain, urgency, other Hematologic/Lymphatic: Reports: anemia Allergies: Coded Allergies: KETOROLAC (Verified Allergy, Mild, SOB, 06/28/11) METOCLOPRAMIDE (Verified Allergy, Mild, RASH, 06/28/11) NITROGLYCERIN (Verified Allergy, Mild, SEIZURES, 06/28/11) PENICILLINS (Verified Allergy, Mild, SOB, 06/28/11) PHENYTOIN (Verified Allergy, Mild, RASH, 06/28/11) ACETAMINOPHEN (Verified Allergy, Unknown, Shortness of Breath, 08/31/16) swelling throat, difficulty breathing CODEINE (Unverified Allergy, Unknown, 10/16/16) HYDRALAZINE (Verified Allergy, Unknown, 08/28/16) HYDROCODONE (Verified Allergy, Unknown, Shortness of Breath, 08/31/16) swelling throat, difficulty breathing IBUPROFEN (Verified Allergy, Unknown, RASH, 06/28/11) IODINE (Verified Allergy, Unknown, SHOCK, 06/28/11) POLYSTYRENE SULFONATE (Verified Allergy, Unknown, RASH, 06/28/11) PROMETHAZINE (Verified Allergy, Unknown, RASH, 06/28/11) Subjective S/P blood transfusion. No adverse events. Resting in bed. Objective Last 24 Hour Vital Signs Date Time Temp Pulse Resp B/P (MAP) Pulse Ox O2 Delivery O2 Flow Rate FiO2 02/11/17 22:05 159/84 02/11/17 22:00 95 159/84 02/11/17 16:00 97.7 92 18 149/88 100 02/11/17 15:25 98.1 02/11/17 14:55 95 168/94 02/11/17 14:55 168/94 02/11/17 12:00 98.1 95 21 168/94 100 02/11/17 08:00 97.9 89 19 166/104 100 02/11/17 06:11 91 148/89 02/11/17 06:11 148/89 02/11/17 04:00 100 Room Air 02/11/17 04:00 98.5 91 20 148/89 100 02/11/17 00:00 98.8 93 18 146/85 100 02/11/17 00:00 100 Room Air Intake and Output 02/10/17 02/11/17 19:00 07:00 Intake Total 720 ml Balance 720 ml Intake Oral 720 ml # Voids 1 # Bowel Movements 1 Laboratory Tests 02/11/17 13:52: White Blood Count 4.4L, Red Blood Count 3.32L, Hemoglobin 9.9#L, Hematocrit 30.9 #L, Mean Corpuscular Volume 93, Mean Corpuscular Hemoglobin 29.7, Mean Corpuscular Hemoglobin Concent 32.0, Red Cell Distribution Width 16.2H, Platelet Count 111L, Mean Platelet Volume 6.3L, Neutrophils (%) (Auto) 64.1, Lymphocytes (%) (Auto) 19.9L, Monocytes (%) (Auto) 10.3H, Eosinophils (%) (Auto ) 4.4H, Basophils (%) (Auto) 1.3 Height (Feet): 5 Height (Inches): 9.00 Weight (Pounds): 170 General Appearance: no apparent distress EENT: normal ENT inspection Neck: supple Cardiovascular: normal rate Respiratory/Chest: decreased breath sounds Chavo Alfaro Feb 11, 2017 22:51
[2017-02-12] VITALS (11 sets, daily range): BP systolic 148–175; BP diastolic 82–116
[2017-02-12] MEDS: DiphenhydrAMINE 50mg/ml Inj IVP PRN ×4 (02:42→20:20)
[2017-02-12] MEDS: Hydromorphone 0.5mg/0.5ml inj IVP PRN ×4 (02:43→20:20)
[2017-02-12] MEDS: Labetalol 200mg tab ORAL SCH ×3 (06:00→22:00)
[2017-02-12] MEDS: Phenytoin 100mg cap ORAL SCH ×2 (08:34→21:00)
--- NOTE | 2017-02-12 08:47 | General Progress Note ---
Assessment/Plan Assessment/Plan (1) history of cerebrovascular accident (2) left-sided weakness (3) joint contractures (4) thalamic pain syndrome (5) chronic kidney disease on dialysis We will continue Dilaudid D/w Dr. Calix and he concurred. Subjective Date patient seen: Feb 12, 2017 Time patient seen: 07:00 - am Allergies: Coded Allergies: KETOROLAC (Verified Allergy, Mild, SOB, 06/28/11) METOCLOPRAMIDE (Verified Allergy, Mild, RASH, 06/28/11) NITROGLYCERIN (Verified Allergy, Mild, SEIZURES, 06/28/11) PENICILLINS (Verified Allergy, Mild, SOB, 06/28/11) PHENYTOIN (Verified Allergy, Mild, RASH, 06/28/11) ACETAMINOPHEN (Verified Allergy, Unknown, Shortness of Breath, 08/31/16) swelling throat, difficulty breathing CODEINE (Unverified Allergy, Unknown, 10/16/16) HYDRALAZINE (Verified Allergy, Unknown, 08/28/16) HYDROCODONE (Verified Allergy, Unknown, Shortness of Breath, 08/31/16) swelling throat, difficulty breathing IBUPROFEN (Verified Allergy, Unknown, RASH, 06/28/11) IODINE (Verified Allergy, Unknown, SHOCK, 06/28/11) POLYSTYRENE SULFONATE (Verified Allergy, Unknown, RASH, 06/28/11) PROMETHAZINE (Verified Allergy, Unknown, RASH, 06/28/11) Subjective REVIEW OF SYSTEMS: Denies rash, fever, chills, sweating, dizziness, drowsiness, blurred vision, sore throat, or change in his weight. No shortness of breath. No nausea, vomiting, diarrhea. No bowel or bladder incontinence. No dysuria. He is complaining of left-sided body pain. SUBJECTIVE: Pt is in bed and his pain has been at a moderate level. He continues to take the Dilaudid as needed and has no new complaints. Objective Last 24 Hour Vital Signs Date Time Temp Pulse Resp B/P (MAP) Pulse Ox O2 Delivery O2 Flow Rate FiO2 02/12/17 06:08 171/89 02/12/17 06:00 96 171/84 02/12/17 04:00 98.5 90 18 159/92 100 02/12/17 00:00 98.6 95 18 149/85 100 1/7/18 22:05 159/84 02/11/17 22:00 95 159/84 02/11/17 20:00 98.2 90 18 148/98 100 02/11/17 16:00 97.7 92 18 149/88 100 02/11/17 15:25 98.1 02/11/17 14:55 95 168/94 02/11/17 14:55 168/94 02/11/17 12:00 98.1 95 21 168/94 100 Intake and Output 02/11/17 02/12/17 19:00 07:00 Intake Total 480 ml Output Total 150 ml Balance 480 ml -150 ml Intake Oral 480 ml Emesis 150 ml # Voids 1 # Bowel Movements 1 Laboratory Tests 02/11/17 13:52: White Blood Count 4.4L, Red Blood Count 3.32L, Hemoglobin 9.9#L, Hematocrit 30.9 #L, Mean Corpuscular Volume 93, Mean Corpuscular Hemoglobin 29.7, Mean Corpuscular Hemoglobin Concent 32.0, Red Cell Distribution Width 16.2H, Platelet Count 111L, Mean Platelet Volume 6.3L, Neutrophils (%) (Auto) 64.1, Lymphocytes (%) (Auto) 19.9L, Monocytes (%) (Auto) 10.3H, Eosinophils (%) (Auto ) 4.4H, Basophils (%) (Auto) 1.3 Height (Feet): 5 Height (Inches): 6.00 Weight (Pounds): 115 Objective GENERAL: Alert, awake, and oriented. LUNGS: Decreased breath sounds bilaterally. HEART: Regular. ABDOMEN: Tenderness to palpation. EXTREMITIES: No cyanosis. No clubbing. No edema. NEUROLOGICAL: Left-sided joint contractures noted with weakness exhibited in the upper and lower extremities. ANNA MATTA Feb 12, 2017 08:47
--- NOTE | 2017-02-12 10:19 | Pre-Procedure Note/Attestation ---
Pre-Procedure Note/Attestation Complete Prior to Procedure Planned Procedure: not applicable Procedure Narrative: egd Indications for Procedure Pre-Operative Diagnosis: gib Attestation I attest that I discussed the nature of the procedure; its benefits; risks and complications; and alternatives (and the risks and benefits of such alternatives ), prior to the procedure, with the patient (or the patient's legal chemical sales representative). I attest that, if there was a reasonable possibility of needing a blood transfusion, the patient (or the patient's legal chemical sales representative) was given the [facility] standardized written summary, pursuant to the Ir[place] Blood Safety Act ([place] Health and Safety Code # 1645, as amended). I attest that I re-evaluated the patient just prior to the surgery and that there has been no change in the patient's H&P, except as documented below: JEN VALDEZ Feb 12, 2017 10:19
[2017-02-12] MEDS ORDERED: NS 500ML IV ONE (10:35)
--- NOTE | 2017-02-12 10:57 | Endoscopy Procedure Note ---
Endoscopy Procedure Note Indication for Procedure: gerd, GIB Procedures Performed: EGD Operative Findings/Diagnosis: hh, gastritis Specimen: yes Pt Tolerated Procedure Well: Yes Estimated Blood Loss: none Anesthesiologist: chelsy Anesthesia: MAC Implant(s) used?: No 50 yrs or older w/o bx or poly: Not Applicable 10yrs. F/U not recommended: Not Applicable JEN VALDEZ Feb 12, 2017 10:57
--- NOTE | 2017-02-12 11:11 | Anethesia Preoperative Eval ---
Anesthesia Pre-op PMH/ROS General Date of Evaluation: Feb 12, 2017 Time of Evaluation: 11:15 Anesthesiologist: Karlie ASA Score: ASA 4 Mallampati Score Class I : Soft palate, uvula, fauces, pillars visible Class II: Soft palate, uvula, fauces visible Class III: Soft palate, base of uvula visible Class IV: Only hard plate visible Mallampati Classification: Class II Surgeon: Lori Diagnosis: GI Bleed Surgical Procedure: EGD Allergies: Coded Allergies: KETOROLAC (Verified Allergy, Mild, SOB, 06/28/11) METOCLOPRAMIDE (Verified Allergy, Mild, RASH, 06/28/11) NITROGLYCERIN (Verified Allergy, Mild, SEIZURES, 06/28/11) PENICILLINS (Verified Allergy, Mild, SOB, 06/28/11) PHENYTOIN (Verified Allergy, Mild, RASH, 06/28/11) ACETAMINOPHEN (Verified Allergy, Unknown, Shortness of Breath, 08/31/16) swelling throat, difficulty breathing CODEINE (Unverified Allergy, Unknown, 10/16/16) HYDRALAZINE (Verified Allergy, Unknown, 08/28/16) HYDROCODONE (Verified Allergy, Unknown, Shortness of Breath, 08/31/16) swelling throat, difficulty breathing IBUPROFEN (Verified Allergy, Unknown, RASH, 06/28/11) IODINE (Verified Allergy, Unknown, SHOCK, 06/28/11) POLYSTYRENE SULFONATE (Verified Allergy, Unknown, RASH, 06/28/11) PROMETHAZINE (Verified Allergy, Unknown, RASH, 06/28/11) Past Medical History Cardiovascular: Reports: HTN, CAD, [place] Gastrointestinal/Genitourinary: Reports: ESRD Neurologic/Psychiatric: Reports: CVA Hematology/Immune: Reports: anemia PMH Narrative: HTN, CAD (s/p LA), ESRD, CVA, pericarditis, GI bleed, anemia PSxH Narrative: Nephrectomy, pericardial window, coronary stents Anesthesia Pre-op Phys. Exam Physician Exam Last Vital Signs Date Time Temp Pulse Resp B/P (MAP) Pulse Ox O2 Delivery O2 Flow Rate FiO2 02/12/17 08:00 97.7 89 20 166/116 100 02/11/17 04:00 Room Air Constitutional: NAD Neurologic: CN 2-12 intact Cardiovascular: RRR, no M/R/G Respiratory: CTA Gastrointestinal: S/NT/ND Airway Exam Mallampati Score: Class II MO: full ROM: full Teeth: loose Anesthesia Pre-op A/P Labs Hematology Test 02/11/17 13:52 White Blood Count 4.4 K/UL (4.8-10.8) L Red Blood Count 3.32 M/UL (4.70-6.10) L Hemoglobin 9.9 G/DL (14.2-18.0) #L Hematocrit 30.9 % (42.0-52.0) #L Mean Corpuscular Volume 93 FL (80-99) Mean Corpuscular Hemoglobin 29.7 PG (27.0-31.0) Mean Corpuscular Hemoglobin Concent 32.0 G/DL (32.0-36.0) Red Cell Distribution Width 16.2 % (11.6-14.8) H Platelet Count 111 K/UL (150-450) L Mean Platelet Volume 6.3 FL (6.5-10.1) L Neutrophils (%) (Auto) 64.1 % (45.0-75.0) Lymphocytes (%) (Auto) 19.9 % (20.0-45.0) L Monocytes (%) (Auto) 10.3 % (1.0-10.0) H Eosinophils (%) (Auto) 4.4 % (0.0-3.0) H Basophils (%) (Auto) 1.3 % (0.0-2.0) Studies Pre-op Studies: EKG - ST Risk Assessment & Plan Assessment: Multi-organ disease Plan: GA, TIVA Status Change Before Surgery: No Pre-Antibiotics Drug: None CABRERA MONIQUE M.D. Feb 12, 2017 11:11
--- NOTE | 2017-02-12 11:13 | Immediate Post-Op Evaluation ---
Immediate Post-Op Evalulation Immediate Post-Op Evalulation Procedure: EGD Date of Evaluation: Feb 12, 2017 Time of Evaluation: 11:15 IV Fluids: 100 Blood Pressure Systolic: 175 Blood Pressure Diastolic: 93 Pulse Rate: 103 Respiratory Rate: 17 O2 Sat by Pulse Oximetry: 100 Temperature (Fahrenheit): 98.2 Pain Score (1-10): 0 Nausea: No Vomiting: No Complications No complication Patient Status: awake, patent, none Hydration Status: adequate Drug: None CABRERA MONIQUE M.D. Feb 12, 2017 11:13
--- NOTE | 2017-02-12 14:20 | Nephrology Progress Note ---
Assessment/Plan Plan ESRD - HD GI bleed - Hct dropped from 31 on admission to 18! Needs to be scoped? yesterday Hct 30 EGD no bleeding. DC home. Patient protesting: Dr. glez promised me ... and That told me..... Subjective Subjective Still c/o vomiting blood. Objective Objective Last 24 Hour Vital Signs Date Time Temp Pulse Resp B/P (MAP) Pulse Ox O2 Delivery O2 Flow Rate FiO2 02/12/17 11:30 97.5 96 19 163/103 100 Room Air 02/12/17 11:17 97 15 163/100 100 Room Air 02/12/17 11:13 103 17 100 02/12/17 11:12 98 20 170/100 100 Room Air 02/12/17 11:07 97.2 107 20 175/93 100 Simple Mask 6.0 02/12/17 08:00 97.7 89 20 166/116 100 02/12/17 06:08 171/89 02/12/17 06:00 96 171/84 02/12/17 04:00 98.5 90 18 159/92 100 02/12/17 00:00 98.6 95 18 149/85 100 02/11/17 22:05 159/84 02/11/17 22:00 95 159/84 02/11/17 20:00 98.2 90 18 148/98 100 02/11/17 16:00 97.7 92 18 149/88 100 02/11/17 15:25 98.1 02/11/17 14:55 95 168/94 02/11/17 14:55 168/94 Intake and Output 02/11/17 02/12/17 19:00 07:00 Intake Total 480 ml Output Total 150 ml Balance 480 ml -150 ml Intake Oral 480 ml Emesis 150 ml # Voids 1 # Bowel Movements 1 Height (Feet): 5 Height (Inches): 6.00 Weight (Pounds): 115 Objective CV RR Lungs CTA Abd SNT. BS+ E No CCe. L Arm contracture. ARNIE SWEET Feb 12, 2017 14:20
--- NOTE | 2017-02-12 15:15 | Procedure Note ---
DATE OF PROCEDURE: 02/12/2017 SURGEON: Alec Sandoval M.D. PROCEDURE: Upper endoscopy with biopsy. ANESTHESIOLOGIST: Irvin Ziegler M.D. INSTRUMENT: Olympus adult flexible upper endoscope. INDICATION: Upper GI bleeding. REASON FOR PROCEDURE: The procedure, risks, benefits, and possible consequences, including hemorrhage, aspiration, perforation and infection, and alternative treatments, were explained to the patient/legal guardian by Dr. Alec Sandoval and the patient/legal guardian understood and accepted these risks. PROCEDURE IN DETAIL: After informed consent was obtained and the patient was adequately sedated, Olympus upper endoscope was advanced from the mouth into the second portion of the duodenum and retroflexion was performed in the stomach. The patient has evidence of medium-sized hiatal hernia without any obvious esophagitis. In the stomach, there was diffuse gastritis. No obvious ulcerations, no erosions, and no evidence of any active bleeding. Duodenal mucosa is grossly within normal limits. At this time, the scope was pulled back into the stomach and random biopsy from antrum was obtained for evaluation of gastritis. At this time, the scope was retrieved and the procedure was terminated. SUMMARY OF FINDINGS: 1. Medium-sized hiatal hernia. 2. Gastritis, status post biopsy. RECOMMENDATIONS: Follow up biopsies and treat accordingly. I want to thank, Dr. Gaines, for this kind referral. Alec Sandoval M.D. DR: BONI JOB#: [id number] CC:
[2017-02-12] MEDS: Epogen (for ESRD on dialysis) SUBQ SCH (20:19)
[2017-02-12] MEDS ORDERED: DiphenhydrAMINE 50mg/ml Inj ONE (21:39)
[2017-02-12] MEDS ORDERED: NS 500ML ONE (21:39)
[2017-02-12] MEDS ORDERED: Propofol 200mg/20ml IV ONE (21:39)
--- NOTE | 2017-02-12 22:02 | General Progress Note ---
Assessment/Plan Status: unchanged Assessment/Plan ASSESSMENT AND RECS: #. Pancytopenia. stool occult negative, hepatitis is negative, hiv is negaive, us of the abdomen has been reviewed --> anemia work up reviewed, watch count, transfuse if below 7 --> S/P transfusion, no complications --> plt goal above 20K --> monitor for now, if worsens consider bmbx --> agree to stop psych/seizure meds, depakote mainly for low platelets #. End-stage renal disease. On HD, continue to closely monitor. #. Anemia of chronic kidney disease. Continue to monitor. #. Chest pain. Cardiology service following #. Hypertension #. S/p nephrectomy #. History of pericarditis Subjective Date patient seen: Feb 12, 2017 Constitutional: Denies: no symptoms, chills, diaphoresis, fever, malaise, weakness, other HEENT: Denies: no symptoms, eye pain, blurred vision, tearing, double vision, ear pain, ear discharge, nose pain, nose congestion, throat pain, throat swelling, mouth pain, mouth swelling, other Cardiovascular: Denies: no symptoms, chest pain, edema, irregular heart rate, lightheadedness, palpitations, syncope, other Respiratory: Denies: no symptoms, cough, orthopnea, shortness of breath, SOB with excertion, SOB at rest, sputum, stridor, wheezing, other Gastrointestinal/Abdominal: Denies: no symptoms, abdomen distended, abdominal pain, black stools, tarry stools, blood in stool, constipated, diarrhea, difficulty swallowing, nausea, poor appetite, poor fluid intake, rectal bleeding , vomiting, other Genitourinary: Denies: no symptoms, burning, discharge, frequency, flank pain, hematuria, incontinence, pain, urgency, other Hematologic/Lymphatic: Reports: anemia Allergies: Coded Allergies: KETOROLAC (Verified Allergy, Mild, SOB, 06/28/11) METOCLOPRAMIDE (Verified Allergy, Mild, RASH, 06/28/11) NITROGLYCERIN (Verified Allergy, Mild, SEIZURES, 06/28/11) PENICILLINS (Verified Allergy, Mild, SOB, 06/28/11) PHENYTOIN (Verified Allergy, Mild, RASH, 06/28/11) ACETAMINOPHEN (Verified Allergy, Unknown, Shortness of Breath, 08/31/16) swelling throat, difficulty breathing CODEINE (Unverified Allergy, Unknown, 10/16/16) HYDRALAZINE (Verified Allergy, Unknown, 08/28/16) HYDROCODONE (Verified Allergy, Unknown, Shortness of Breath, 08/31/16) swelling throat, difficulty breathing IBUPROFEN (Verified Allergy, Unknown, RASH, 06/28/11) IODINE (Verified Allergy, Unknown, SHOCK, 06/28/11) POLYSTYRENE SULFONATE (Verified Allergy, Unknown, RASH, 06/28/11) PROMETHAZINE (Verified Allergy, Unknown, RASH, 06/28/11) Subjective On pain control. H/H stable. No new events. Objective Last 24 Hour Vital Signs Date Time Temp Pulse Resp B/P (MAP) Pulse Ox O2 Delivery O2 Flow Rate FiO2 02/12/17 18:37 171/107 02/12/17 18:37 171/107 02/12/17 16:18 97.5 99 20 173/89 95 02/12/17 14:36 96 163/103 02/12/17 11:30 97.5 96 19 163/103 100 Room Air 02/12/17 11:17 97 15 163/100 100 Room Air 02/12/17 11:13 103 17 100 02/12/17 11:12 98 20 170/100 100 Room Air 02/12/17 11:07 97.2 107 20 175/93 100 Simple Mask 6.0 02/12/17 08:00 97.7 89 20 166/116 100 02/12/17 06:08 171/89 02/12/17 06:00 96 171/84 02/12/17 04:00 98.5 90 18 159/92 100 02/12/17 00:00 98.6 95 18 149/85 100 02/11/17 22:05 159/84 Intake and Output 02/11/17 02/12/17 19:00 07:00 Intake Total 480 ml Output Total 150 ml Balance 480 ml -150 ml Intake Oral 480 ml Emesis 150 ml # Voids 1 # Bowel Movements 1 Height (Feet): 5 Height (Inches): 6.00 Weight (Pounds): 115 General Appearance: no apparent distress Neck: supple Cardiovascular: normal rate, regular rhythm Respiratory/Chest: lungs clear, normal breath sounds, no respiratory distress Abdomen: soft, no organomegaly Chavo Alfaro Feb 12, 2017 22:02
--- NOTE | 2017-02-12 22:55 | Pulmonology Progress Note ---
Assessment/Plan Problems: (1) ESRF (end stage renal failure) (2) Severe malnutrition (3) Uncontrolled hypertension (4) Anemia Assessment/Plan GI evaluation symptomatic treatment HD by nephrology watch wbc H2 blockers dc planning, pt wants to go to a rehab facility. Subjective Allergies: Coded Allergies: KETOROLAC (Verified Allergy, Mild, SOB, 06/28/11) METOCLOPRAMIDE (Verified Allergy, Mild, RASH, 06/28/11) NITROGLYCERIN (Verified Allergy, Mild, SEIZURES, 06/28/11) PENICILLINS (Verified Allergy, Mild, SOB, 06/28/11) PHENYTOIN (Verified Allergy, Mild, RASH, 06/28/11) ACETAMINOPHEN (Verified Allergy, Unknown, Shortness of Breath, 08/31/16) swelling throat, difficulty breathing CODEINE (Unverified Allergy, Unknown, 10/16/16) HYDRALAZINE (Verified Allergy, Unknown, 08/28/16) HYDROCODONE (Verified Allergy, Unknown, Shortness of Breath, 08/31/16) swelling throat, difficulty breathing IBUPROFEN (Verified Allergy, Unknown, RASH, 06/28/11) IODINE (Verified Allergy, Unknown, SHOCK, 06/28/11) POLYSTYRENE SULFONATE (Verified Allergy, Unknown, RASH, 06/28/11) PROMETHAZINE (Verified Allergy, Unknown, RASH, 06/28/11) Objective Last 24 Hour Vital Signs Date Time Temp Pulse Resp B/P (MAP) Pulse Ox O2 Delivery O2 Flow Rate FiO2 02/12/17 22:00 90 148/82 02/12/17 20:00 98.8 92 21 172/97 100 02/12/17 18:37 171/107 02/12/17 18:37 171/107 02/12/17 16:18 97.5 99 20 173/89 95 02/12/17 14:36 96 163/103 02/12/17 11:30 97.5 96 19 163/103 100 Room Air 02/12/17 11:17 97 15 163/100 100 Room Air 02/12/17 11:13 103 17 100 02/12/17 11:12 98 20 170/100 100 Room Air 02/12/17 11:07 97.2 107 20 175/93 100 Simple Mask 6.0 02/12/17 08:00 97.7 89 20 166/116 100 02/12/17 06:08 171/89 02/12/17 06:00 96 171/84 02/12/17 04:00 98.5 90 18 159/92 100 02/12/17 00:00 98.6 95 18 149/85 100 Intake and Output 02/11/17 02/12/17 19:00 07:00 Intake Total 480 ml Output Total 150 ml Balance 480 ml -150 ml Intake Oral 480 ml Emesis 150 ml # Voids 1 # Bowel Movements 1 Objective General Appearance: cachectic HEENT: normocephalic, atraumatic Respiratory/Chest: chest wall non-tender, lungs clear Abdomen: normal bowel sounds, soft, non tender Genitourinary: normal external genitalia Skin: no lesions BETHEL PACK Feb 12, 2017 22:54
--- NOTE | 2017-02-13 00:17 | Cardiology Report ---
APPROVED REPORT EKG Measurement Heart [id number] [place] [id number] Normal sinus rhythm Right atrial enlargement Borderline ECG
--- NOTE | 2017-02-13 00:20 | Cardiology Report ---
APPROVED REPORT EKG Measurement Heart [id number] [place] [id number] Sinus tachycardia Right atrial enlargement Voltage for LVH Abnormal ECG
--- NOTE | 2017-02-14 22:26 | Discharge Summary ---
Discharge Summary Hospital Course Date of Admission Jan 31, 2017 at 20:28 Date of Discharge Feb 12, 2017 at 21:40 Admitting Diagnosis Acute coronary syndrome HPI Jose Campo is a 31 year old male who was admitted on Jan 31, 2017 at 20:28 for Acute Coronary Syndrome Hospital Course dc summary #[id number] Discharge Medications Continued Medications: Clonidine Hcl* (Catapres*) 0.2 Mg Tablet 0.2 MG ORAL DAILY Divalproex Sodium* (Depakote*) 250 Mg Tablet.dr 250 MG PO Q12HR, TAB Labetalol Hcl* (Normodyne*) 200 Mg Tablet 200 MG ORAL DAILY, TAB Levetiracetam (Keppra) 1,000 Mg Tablet 1000 MG ORAL DAILY, TAB 0 Refills Nut.tx.impaired Renal Fxn,Soy (Nepro Carb Steady) 237 Ml Liquid PO QID Phenytoin Sodium Extended* (Dilantin*) 100 Mg Capsule 200 MG ORAL DAILY Discharge Condition Upon Discharge: stable Discharge Disposition Patient was discharged to Home (01) Discharge Diagnoses: Fritz (Ale)Juliana NP Feb 14, 2017 22:26
--- NOTE | 2017-02-15 20:45 | Discharge Summary 2 SIG ---
DATE OF ADMISSION: 01/31/2017 DATE OF DISCHARGE: 02/12/2017 REASON FOR ADMISSION: 31-year-old male with multiple with past medical history significant for hypertension, diabetes, end-stage renal disease, on hemodialysis, status post nephrectomy, history of pericardial effusion, status post pericardiocentesis and pericardial window( performed about six months ago), coronary artery disease with two stents, CVA with left-sided weakness, presented with chest pain for two hours. Chest pain started shortly after he had hemodialysis, localized in the substernal area without radiation, sharp, gradual, and lasted two hours. Chest pain in the anterior chest. Patient had prior episodes of similar chest pain in the past. He denied shortness of breath, palpitations, or diaphoresis. No fever, chills, cough, or abdominal pain. Denied trauma. Workup in the emergency room revealed tachycardia -114 and blood pressure- 155/94. Pulse oximetry was stable on room air. EKG revealed sinus tachycardia, no acute ischemic changes. Chest x-ray revealed cardiomegaly , mild pulmonary vascular congestion, pacemaker in the left chest. No leukocytosis. WBC -4.5, hemoglobin -9.6, hematocrit -30.6, and platelets -134. Renal parameters were consistent with history of end-stage renal disease. Troponin negative. Pro BNP -1324. The patient was admitted with diagnosis of chest pain, rule out acute coronary syndrome, end-stage renal disease, on hemodialysis, pancytopenia, and anemia of chronic kidney disease. HOSPITAL COURSE: The patient was admitted. Nephrology consult was requested for hemodialysis along with cardiology consult. The patient had serial troponin that were all negative. EKG revealed no acute ischemic changes. Therefore, the patient was ruled out for acute MN. Venous duplex of bilateral lower extremities was negative. According to contact lens flashing puncher, chest pain was likely non-anginal. The patient did not appear clinically to be in CHF. Puff Ironer recommended to treat chest pain symptomatically with analgesics. On further evaluation, chest pain was improving. Blood pressure was initially not controlled. Patient was continued on beta- osbaldo and clonidine was increased to improve blood pressure control. Chest pain felt to be related possibly due to chronic pericarditis versus GI source. No further workup for ischemia was recommended by contact lens flashing puncher at that time. Hemoglobin and hematocrit were trending down. GI and records management engineer closely followed. The patient initially was observed and treated symptomatically. The patient had EGD in October 2016 with findings of large hiatal hernia, diffuse gastritis, and distal esophagitis. However, patient had and episode of significant hematemesis and hemoglobin dropped to 5.8 and hematocrit 18.8. The patient received a total of three units of packed red blood cells transfusion. The patient initially declined EGD. On 02/12/2017, EGD was done after the patient consented. It revealed findings of medium-sized hiatal hernia and gastritis. Biopsy revealed mild chronic gastritis. No obvious ulceration, no erosion, and no evidence of any active bleeding was noted during upper endoscopy. Nut Sorter Operator closely followed the patient. Pancytopenia workup was done. Stool for occult blood was negative. Hepatitis panel was negative. HIV status was negative. Ultrasound of the abdomen revealed no acute pathology. Anemia workup was reviewed. Nut Sorter Operator recommended to watch counts and transfuse if hemoglobin below 7. The patient was on Venofer and Epogen. Platelets goal was to keep above 20. Platelets were trending down, and Depakote was subsequently stopped. Dilantin and Keppra were continued. Seizure precautions were maintained. Platelets started to trend up. The patient noted to had elevated alkaline phosphatase, which was likely due to renal failure as per GI conclusion. Hemodialysis was done as per records management engineer. Renal parameters and electrolytes were closely monitored. Supplemental oxygen provided as needed to keep pulse oximetry above 92%. Handheld nebulizing treatment was on the standby as needed. Chest x-ray revealed no evidence of acute cardiopulmonary pathology. The patient was working with physical and occupational therapists. Nutritional recommendations were implemented to improve nutritional status. After endoscopy , no further episodes of active bleeding , as hematemesis, were noted. Hemoglobin and hematocrit remain stable. Hemoglobin -9.9 and hematocrit -30.9. Pain specialist followed the patient for pain management due to joint contractures CVA with left -sided weakness, and thalamic pain syndrome. Pain management was addressed and controlled. The patient was stable for discharge. FINAL DIAGNOSES: 1. Chest pain, possibly due to chronic pericarditis. 2. End-stage renal disease, on hemodialysis. 3. Status post nephrectomy. 4. Anemia of chronic kidney disease. 5. Acute anemia due to blood loss, status post blood transfusion. 6. Gastritis. 7. Hematemesis- resolved 8. Severe protein-calorie malnutrition. 9. Elevated alkaline phosphatase. 10. Hypertensive heart disease, 11. Pacemaker. 12. History of cerebrovascular accident with left side hemiplegia. 13. Chronic pericarditis. 14. Thrombocytopenia. 15. Seizure disorder. 16. Thalamic pain syndrome. 17. Joint contracture. 18. Status post esophagogastroduodenoscopy with finding of gastritis, status post biopsy and medium size hiatal hernia. DISCHARGE MEDICATIONS: See medication reconciliation list. DISCHARGE INSTRUCTIONS: The patient discharged home. Follow up with outpatient hemodialysis. Follow up with the primary medical doctor. Kaylah Hayward M.D. Juliana RickettsMisericordia HospitalDuane N.PIsabelle DR: CAITY JOB#: [id number] CC: LINA
== END 2017-02-12 21:40 | disposition home or self-care (01) | DRG 207 ==
LOC: EDBD 18:01 → EMR 19:27 → 2W 20:28 → EDBEDREQ 02-01 08:13 → 2E 02-01 09:00 → 4E 02-02 13:58
PROC: 5A1D70Z Performance of Urinary Filtration, Intermittent, Less than 6 Hours Per Day (ICD-10-PCS; principal; 2017-02-02)
PROC: 5A1D70Z Performance of Urinary Filtration, Intermittent, Less than 6 Hours Per Day (ICD-10-PCS; 2017-02-02)
PROC: 5A1D70Z Performance of Urinary Filtration, Intermittent, Less than 6 Hours Per Day (ICD-10-PCS; 2017-02-06)
PROC: 5A1D70Z Performance of Urinary Filtration, Intermittent, Less than 6 Hours Per Day (ICD-10-PCS; 2017-02-08)
PROC: 30233N1 Transfusion of Nonautologous Red Blood Cells into Peripheral Vein, Percutaneous Approach (ICD-10-PCS; 2017-02-09)
PROC: 5A1D70Z Performance of Urinary Filtration, Intermittent, Less than 6 Hours Per Day (ICD-10-PCS; 2017-02-10)
PROC: 0DD68ZX Extraction of Stomach, Via Natural or Artificial Opening Endoscopic, Diagnostic (ICD-10-PCS; 2017-02-12)
DX: I31.9 Disease of pericardium, unspecified (principal); E43 Unspecified severe protein-calorie malnutrition; D61.818 Other pancytopenia; K92.0 Hematemesis; N18.6 End stage renal disease; I13.11 Hypertensive heart and chronic kidney disease without heart failure, with stage 5 chronic kidney disease, or end stage renal disease; D62 Acute posthemorrhagic anemia; I69.954 Hemiplegia and hemiparesis following unspecified cerebrovascular disease affecting left non-dominant side; E11.9 Type 2 diabetes mellitus without complications; D63.1 Anemia in chronic kidney disease; I25.10 Atherosclerotic heart disease of native coronary artery without angina pectoris; Z99.2 Dependence on renal dialysis; R97.0 Elevated carcinoembryonic antigen [CEA]; Z90.5 Acquired absence of kidney; R00.0 Tachycardia, unspecified; Z95.0 Presence of cardiac pacemaker; K29.70 Gastritis, unspecified, without bleeding; G89.0 Central pain syndrome; K44.9 Diaphragmatic hernia without obstruction or gangrene; Z95.5 Presence of coronary angioplasty implant and graft; Z68.1 Body mass index [BMI] 19.9 or less, adult
CPT/HCPCS: 36415; 71010; 76700; 80053; 80061; 80164; 80185; 80299; 82270; 82550; 82607; 82728; 82746; 82977; 83036; 83540; 83550; 83735; 83880; 84100; 84443; 84484; 84550; 85007; 85025; 85610; 85730; 86140; 86703; 86705; 86709; 86803; 86850; 86900; 86901; 86920; 87081; 87340; 93005; 93970; 94003; 94150; 99285; J2405